=== PATIENT | female | born 1945 | race Caucasian/White ===

== ENCOUNTER 2023-03-23 12:13 | Emergency (ER) | payer MEDICARE, SELFPAY ==
[2023-03-23 12:27] VITALS: BP 120/76; PULSE 64; RESP 18; TEMP 37.3; O2SAT 98
[2023-03-23 14:09] LABS: Internal Control Within Normal Limits; Strep A Antigen Screen Negative
--- NOTE | 2023-03-23 14:16 | ED_ITS ---
HPI - URI/Sore Throat General Chief Complaint: Upper Respiratory Infection Stated Complaint: SORE THROAT Time Seen by Provider: 03/23/23 13:25 Source: patient Limitations: no limitations History of Present Illness HPI Narrative: patient presents to emergency department complaining of sore throat, myalgias, headache, chills and denies any fever. Patient states she has a cough which is nonproductive. She feels like she has bronchitis. She denies any chest pain, or shortness of breath. She denies any wheezing. Patient states she has a lot of nasal congestion and also her voice is becoming raspy from coughing so much yesterday. Patient has been sick for a week. They called the primary care doctor and were not able to get in until next week so they came in to be evaluated. There are no other sick contacts in the household. The patient just wants something to help her with the cough. She denies any chest pain. She denies any nausea, vomiting, diarrhea, cuts patient, or abdominal pain. She denies any flank pain, hematuria, dysuria. MD elicited complaint: Reports fever, cough, sore throat, rhinorrhea, nasal congestion and sinus pain Related Data Previous Rx's Medication Instructions Recorded benzonatate 200 mg capsule 200 mg PO TID PRN cough #20 caps 03/23/23 methylprednisolone 4 mg tablets in 4 mg PO DAILY #21 ea 03/23/23 a dose pack (Medrol (Dada)) Allergies Allergy/AdvReac Type Severity Reaction Status Date / Time pcn AdvReac Intermediate Uncoded 03/23/23 12:27 Review of Systems ROS Status of ROS 10 or more systems reviewed and unremarkable except as noted in history and below Exam Narrative Exam Narrative: Nurses notes and vital signs reviewed and patient is not hypoxic. General: Nontoxic,elderly, frail, chronically ill and in no apparent distress. Skin: Warm, dry, no pallor noted. No Rash Head: Normocephalic, atraumatic. Neck: Supple, non-tender. Eye: Pupils are equal, round and EOMI. No scleral icterus. Ears, Nose, Mouth, and Throat: TM clear, mild posterior oropharynx erythema, postnasal drip noted, no asymmetry,no nasal mucosal hypertrophy, uvula is mid- line Oral mucosa is moist Cardiovascular: Regular Rate and Rhythm without murmur, gallop or rub. Respiratory: No accessory muscle use or respiratory distress. Lungs are clear to auscultation, no wheezing, rales or rhonchi Chest Wall: no tenderness Back: No midline thoracic or lumbar vertebral tenderness. No CVA tenderness Musculoskeletal: normal ROM, no calf or popliteal tenderness, no lower extremity edema/swelling GI: Abdomen is soft, non-distended. Normal bowel sounds. No masses appreciated. No tenderness to palpation. No rebound, guarding, or rigidity noted. Neurological: A&O x4. No cranial nerve dysfunction observed. No truncal ataxia. Moves all extremities. Sensation intact. Psychiatric: Cooperative and interactive. Normal mood and affect. Constitutional Vital Signs, click to edit/add: Last Vital Signs Temp 99.2 F 03/23/23 12:27 Pulse 86 03/23/23 15:55 Resp 18 03/23/23 15:55 BP 138/87 03/23/23 15:55 Pulse Ox 96 03/23/23 15:55 O2 Del Method Room Air 03/23/23 15:55 Course Vital Signs Vital signs: Vital Signs Temperature 99.2 F 03/23/23 12:27 Pulse Rate 64 03/23/23 12:27 Respiratory Rate 18 03/23/23 12:27 Blood Pressure 120/76 03/23/23 12:27 Pulse Oximetry 98 03/23/23 12:27 Temperature 99.2 F 03/23/23 12:27 Pulse Rate 86 03/23/23 15:55 Respiratory Rate 18 03/23/23 15:55 Blood Pressure 138/87 03/23/23 15:55 Pulse Oximetry 96 03/23/23 15:55 Oxygen Delivery Method Room Air 03/23/23 15:55 MDM - URI/Sore Throat MDM Narrative Medical decision making narrative: rapid strep, cold and chest x-ray are unremarkable. All results discussed with patient. patient will be prescribed some Tessalon Perles, and a Medrol Dosepak. Patient is nontoxic, oxygen saturation 76 percent on room air. She stable for outpatient follow-up and treatment. At this time the patient is without objective evidence of an acute process requiring hospitalization or inpatient management. The patient has remained hemodynamically stable. No additional indication for emergent studies at this time. I answered all questions. Discussed discharge instructions including standard anticipatory guidance and what should prompt a return to the emergency department, including if they get worse are not getting better or develops any new or concerning symptoms. I've given them specific time frame in which to follow-up, and who to follow-up with. The patient demonstrates understanding. Patient is nontoxic and stable for discharge with outpatient follow-up. This note was created with the assistance of a speech recognition program. Although the intention is to generate documents that actually reflects the content of the visit, no guarantees can be provided that every mistake has been identified and corrected by editing. Differential Diagnosis Differential diagnosis: Likely upper respiratory infection Lab Data Labs: Lab Results 03/23/23 03/23/23 Range/Units 13:40 14:27 SARS-CoV-2 (PCR) Negative (NEGATIVE) Streptococcus Screen Negative Discharge Plan Discharge Chief Complaint: Upper Respiratory Infection Clinical Impression: Upper respiratory infection, Bronchitis Patient Disposition: Home, Self-Care Time of Disposition Decision: 15:39 Condition: Good Mode of Transportation: Private Vehicle Prescriptions / Home Meds: New methylprednisolone [Medrol (Dada)] 4 mg tablets,dose pack 4 mg PO DAILY Qty: 21 0RF benzonatate 200 mg capsule 200 mg PO TID PRN (Reason: cough) Qty: 20 0RF Instructions: Upper Respiratory Infection (ED), Acute Bronchitis (ED) Stand Alone Forms: Portal Instructions Referrals: Pio Gibbs MD [Primary Care Provider] - 1 week Discharge Date/Time: 03/23/23 16:00
--- NOTE | 2023-03-23 14:24 | XR_ITS ---
The [address] [address] Patient Name: JERRY FINNEY MRN: [id number] date: 1945 Sex: F Assigned Patient Location: ER Current Patient Location: ER Accession/Order Number: [id number] Exam Date: 03/23/2023 14:30 Report Date: 03/23/2023 14:47 At the request of: TYLER WALTERS Procedure: XR chest 1V EXAM: XR chest 1V at 1359 hours HISTORY: cough COMPARISON: 08/29/2021 TECHNIQUE: AP upright portable chest x-ray FINDINGS: The heart is not enlarged and the vasculature is not distended. No acute infiltrate, effusion or pneumothorax is identified. The osseous structures are grossly intact. XR/XR chest 1V IMPRESSION: No acute infiltrate or evidence of cardiac decompensation. The overall appearance of the chest has not changed significantly. Electronically authenticated by: MILA GAITAN Date: 03/23/2023 14:47
[2023-03-23 15:08] LABS: SARS-CoV-2 Ag NEGATIVE (NEGATIVE)
[2023-03-23 15:55] VITALS: BP 138/87; PULSE 86; RESP 18; O2SAT 96
[2023-03-25 14:15] LABS: SARS-CoV-2 NAA NOT DETECTED (NOT DETECTE)
== END 2023-03-23 16:00 | disposition home or self-care (01) ==
PROVIDERS: Physician Assistant; Emergency Provider Emergency Medicine; PCP Family Medicine
DX: J40 Bronchitis, not specified as acute or chronic (principal); J06.9 Acute upper respiratory infection, unspecified; Z20.822 Contact with and (suspected) exposure to COVID-19
CPT/HCPCS: 71045; 87070; 87635; 87811; 87880; 99284; U0003

== ENCOUNTER 2023-05-29 10:56 | Observation (INO) | payer MEDICARE, SELFPAY ==
[2023-05-29 11:05] VITALS: BP 156/91; PULSE 108; RESP 18; TEMP 37.2; O2SAT 95; BMI 24.8
--- NOTE | 2023-05-29 11:10 | CT_ITS ---
The [address] [address] Patient Name: JERRY FINNEY MRN: [facility]:[id number] date: 1945 Sex: F Assigned Patient Location: ER Current Patient Location: [facility] Accession/Order Number: [id number] Exam Date: 05/29/2023 11:15 Report Date: 05/29/2023 11:47 At the request of: AMBIKA PANDA Procedure: CT lumbar spine wo con EXAM: CT lumbar spine wo con HISTORY: Lumbar spine pain following fall last night COMPARISON: Lumbar spine radiographs 10/12/2022. TECHNIQUE: Axial noncontrast CT imaging of the lumbar spine was performed with coronal and sagittal reformats. This CT exam was performed using one or more of the following dose reduction techniques: Automated exposure control, adjustment of the MA and/or kV according to patient size, or use of iterative reconstruction technique. FINDINGS: Alignment: Similar stepwise retrolisthesis of L2 on L3 and L3 on L4 with 7 mm retrolisthesis at both levels. Vertebrae: Chronic anterior compression deformity is of L2 on L3 slightly greater at L3 with approximately 50% height loss and mild diffuse generalized height loss. This is not substantially changed from 10/12/2022. Diffuse osteopenia. Degenerative changes: Moderate degenerative change of the lower thoracic and lumbar spine with bridging anterior osteophytosis involving the lower thoracic spine and upper lumbar spine as well as bridging fusion of the spinous processes extending from the lower thoracic spine through the level of L2. There is vacuum disc noted at L2-L3 and multilevel disc bulges with marginal osteophytic spurring. Probable mild to moderate foraminal stenosis is noted. There is mild canal stenosis at L1-L2 and L2-L3. Moderate to advanced bilateral foraminal stenosis at L2-L3. Multilevel mild foraminal stenosis at the remaining levels. Upper Sacrum: No focal lesion identified. Additional comments: Surgical changes involving the colon. Atherosclerotic changes are noted. Mild diverticulosis. CT/CT lumbar spine wo con IMPRESSION: 1. No acute fracture or malalignment of the lumbar spine given diffuse osteopenia. 2. Grossly stable appearance of chronic compression deformities of L2 on L3. 3. Moderate degenerative change of lumbar spine. Electronically authenticated by: ANN ZEPEDA Date: 05/29/2023 11:47
--- NOTE | 2023-05-29 11:12 | ECG_ITS ---
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
[2023-05-29 11:38] LABS: Basophils Percent Auto 0.3 % (0.2-2.0); Eosinophils Absolute Auto 0.1 10^3/uL (0.0-0.7); Eosinophils Percent Auto 0.6 % (0.9-7.0); Hematocrit 38.4 % (36.0-48.0); Hemoglobin 12.6 g/dL (12.0-16.0); Immature Granulocytes Abs Auto 0.05 10^3/uL (0.00-0.03); Immature Granulocytes Pct Auto 0.6 % (0.0-0.5); Lymphocytes Absolute Auto 1.2 10^3/uL (1.2-3.8); Mean Corpuscular HGB Conc 32.8 g/dL (29.9-35.2); Mean Corpuscular Hemoglobin 29.7 pg (26.7-34.0); Mean Corpuscular Volume 90.6 fL (81.0-99.0); Mean Platelet Volume 8.5 fL (9.5-13.5); Monocytes Absolute Auto 0.7 10^3/uL (0.3-0.8); Monocytes Percent Auto 7.9 % (1.7-12.0); Neutrophils Absolute Auto 6.9 10^3/uL (1.4-6.5); Neutrophils Percent Auto 77.6 % (43.0-75.0); Platelet Count 244 10^3/uL (150-450); Red Blood Count 4.24 10^6/uL (4.20-5.40); Red Cell Distribution Width 12.7 % (11.0-15.0); White Blood Count 8.9 10^3/uL (4.0-11.0)
[2023-05-29 11:47] LABS: Anion Gap 10.1; BUN Creatinine Ratio 18.2; Calcium 8.7 mg/dL (8.5-10.1); Carbon Dioxide 28.2 mmol/L (21.0-32.0); Chloride 103 mmol/L (98-107); Estimated GFR (African America >60 (>=60); Estimated GFR (Non-African Ame 54 (>=60); Glucose 102 mg/dL (74-106); Potassium 4.3 mmol/L (3.5-5.1); Sodium 137 mmol/L (136-145)
--- NOTE | 2023-05-29 11:47 | ED_ITS ---
HPI - Back Pain/Injury General Chief Complaint: Back Pain/Injury Stated Complaint: BACK PAIN/FALL Time Seen by Provider: 05/29/23 11:00 Source: patient and family Mode of arrival: Wheelchair Limitations: physical limitation History of Present Illness HPI Narrative: 77-year-old female presents for lower back pain. She fell last night about midnight. Her daughter accompanies her and gives most of the history but she didn't witness what happened. The daughter believes that the patient was in her wheelchair and was trying to get ready for bed and the wheelchair wasn't locked and it went backwards and she slipped and fell down. She doesn't headache or neck pain and didn't hit her head. She points to the midline lower back to indicate area of pain. She cannot quantify or describe the pain. The patient herself is a poor historian. Related Data Home Medications Medication Instructions Recorded Confirmed cetirizine 10 mg tablet 10 mg PO DAILY 05/29/23 05/29/23 hyoscyamine sulfate 0.125 mg 0.125 mg PO Q6H 05/29/23 05/29/23 sublingual tablet levothyroxine 112 mcg tablet 112 mcg PO .before breakfast 05/29/23 05/29/23 lisinopril 10 mg tablet 10 mg PO DAILY 05/29/23 05/29/23 omeprazole 40 mg capsule,delayed 40 mg PO DAILY 05/29/23 05/29/23 release simvastatin 40 mg tablet 40 mg PO DAILY 05/29/23 05/29/23 tramadol 50 mg tablet 50 mg PO Q8H 05/29/23 05/29/23 Previous Rx's Medication Instructions Recorded benzonatate 200 mg capsule 200 mg PO TID PRN cough #20 caps 03/23/23 methylprednisolone 4 mg tablets in 4 mg PO DAILY #21 ea 03/23/23 a dose pack (Medrol (Dada)) Allergies Allergy/AdvReac Type Severity Reaction Status Date / Time Iodinated Contrast Media Allergy Unknown Verified 05/29/23 11:34 diclofenac Allergy Verified 05/29/23 11:34 [From Arthrotec 50] misoprostol Allergy Verified 05/29/23 11:34 [From Arthrotec 50] levofloxacin AdvReac Intermediate Hives Verified 05/29/23 11:34 Penicillins AdvReac Intermediate Verified 05/29/23 11:34 Review of Systems ROS Narrative A ten point review of systems is negative except as noted above. [facility] Medical History (Updated 05/29/23 @ 12:11 by Atilio Arreola MD) Anxiety ?F41.9 - Anxiety disorder, unspecified (ICD-10) Arthritis ?M19.90 - Unspecified osteoarthritis, unspecified site (ICD-10) B12 deficiency ?E53.8 - Deficiency of other specified B group vitamins (ICD-10) Cervical radiculopathy ?M54.12 - Radiculopathy, cervical region (ICD-10) Compression fracture of L5 vertebra ?S32.050A - Wedge compression fracture of fifth lumbar vertebra, initial encounter for closed fracture (ICD-10) Diverticula of colon ?K57.30 - Diverticulosis of large intestine without perforation or abscess without bleeding (ICD-10) Graves disease ?E05.00 - Thyrotoxicosis with diffuse goiter without thyrotoxic crisis or storm (ICD-10) Hypertension ?I10 - Essential (primary) hypertension (ICD-10) Osteopenia ?M85.80 - Other specified disorders of bone density and structure, unspecified site (ICD-10) Small bowel obstruction ?K56.609 - Unspecified intestinal obstruction, unspecified as to partial versus complete obstruction (ICD-10) Type 2 diabetes mellitus ?E11.9 - Type 2 diabetes mellitus without complications (ICD-10) Ventral hernia ?K43.9 - Ventral hernia without obstruction or gangrene (ICD-10) Surgical History (Updated 05/29/23 @ 11:44 by Mae Escoto RN) History of cholecystectomy ?Z90.49 - Acquired absence of other specified parts of digestive tract (ICD- 10) History of colon resection ?Z90.49 - Acquired absence of other specified parts of digestive tract (ICD- 10) Social History Smoking status: Former smoker Exam Narrative Exam Narrative: Nurses note and vital signs reviewed and patient is not hypoxic. General: The patient appears uncomfortable and in no apparent distress. Skin: Warm, dry, no pallor noted. There is no rash noted. Head: Normocephalic, atraumatic Eye: Normal conjunctiva, no drainage Ears, Nose, Mouth, and Throat: oral mucosa is moist. Nares patent. Cardiovascular: Regular Rate and Rhythm Respiratory: Patient is in no distress, no accessory muscle use, lungs are clear to auscultation, no wheezing, rales or rhonchi Back: cervical spine and thoracic spine nontender. She has diffuse tenderness across her lower back without bruise or abrasion or deformity. GI: nontender Musculoskeletal: no tenderness to either hip knees and ankles Neurological: A&O, normal speech Psychiatric: Cooperative Constitutional Vital Signs, click to edit/add: Last Vital Signs Temp 99 F 05/29/23 11:05 Pulse 108 H 05/29/23 11:05 Resp 18 05/29/23 11:05 BP 156/91 H 05/29/23 11:05 Pulse Ox 95 05/29/23 11:05 O2 Del Method Room Air 05/29/23 11:05 Course Vital Signs Vital signs: Vital Signs Temperature 99 F 05/29/23 11:05 Pulse Rate 108 H 05/29/23 11:05 Respiratory Rate 18 05/29/23 11:05 Blood Pressure 156/91 H 05/29/23 11:05 Pulse Oximetry 95 05/29/23 11:05 Oxygen Delivery Method Room Air 05/29/23 11:05 Temperature 99 F 05/29/23 11:05 Pulse Rate 108 H 05/29/23 11:05 Respiratory Rate 18 05/29/23 11:05 Blood Pressure 156/91 H 05/29/23 11:05 Pulse Oximetry 95 05/29/23 11:05 Oxygen Delivery Method Room Air 05/29/23 11:05 MDM - Back Pain/Injury MDM Narrative Medical decision making narrative: CT lumbar spine shows old compression fractures, no acute findings. She's quite uncomfortable and is unable to be discharged home. She'll be admitted for observation. Findings are discussed with the patient and her doctor. Differential Diagnosis Differential diagnosis: Likely other (fall, compression fracture, lumbar frac ture, back contusion) Lab Data Attestation: I reviewed the patient's lab results. Labs: Lab Results 05/29/23 Range/Units 11:30 WBC 8.9 (4.0-11.0) 10^3/uL RBC 4.24 (4.20-5.40) 10^6/uL Hgb 12.6 (12.0-16.0) g/dL Hct 38.4 (36.0-48.0) % MCV 90.6 (81.0-99.0) fL MCH 29.7 (26.7-34.0) pg MCHC 32.8 (29.9-35.2) g/dL RDW 12.7 (11.0-15.0) % Plt Count 244 (150-450) 10^3/uL MPV 8.5 L (9.5-13.5) fL Neut % (Auto) 77.6 H (43.0-75.0) % Lymph % (Auto) 13.0 L (20.5-60.0) % [place] % (Auto) 7.9 (1.7-12.0) % Eos % (Auto) 0.6 L (0.9-7.0) % Baso % (Auto) 0.3 (0.2-2.0) % Neut # (Auto) 6.9 H (1.4-6.5) 10^3/uL Lymph # (Auto) 1.2 (1.2-3.8) 10^3/uL [place] # (Auto) 0.7 (0.3-0.8) 10^3/uL Eos # (Auto) 0.1 (0.0-0.7) 10^3/uL Baso # (Auto) 0.0 (0.0-0.1) 10^3/uL Abs Immat Gran (auto) 0.05 H (0.00-0.03) 10^3/uL Imm/Tot Granulo (auto) 0.6 H (0.0-0.5) % Sodium 137 (136-145) mmol/L Potassium 4.3 (3.5-5.1) mmol/L Chloride 103 (98-107) mmol/L Carbon Dioxide 28.2 (21.0-32.0) mmol/L Anion Gap 10.1 BUN 18.0 (7.0-18.0) mg/dL Creatinine 0.99 (0.55-1.02) mg/dL Est GFR ( Amer) >60 (>=60) Est GFR (Non-Af Amer) 54 L (>=60) BUN/Creatinine Ratio 18.2 Glucose 102 (74-106) mg/dL Calcium 8.7 (8.5-10.1) mg/dL Imaging Data CT lumbar spine: Radiologist's impression: Procedure: CT lumbar spine wo con EXAM: CT lumbar spine wo con HISTORY: Lumbar spine pain following fall last night COMPARISON: Lumbar spine radiographs 10/12/2022. TECHNIQUE: Axial noncontrast CT imaging of the lumbar spine was performed with coronal and sagittal reformats. This CT exam was performed using one or more of the following dose reduction techniques: Automated exposure control, adjustment of the MA and/or kV according to patient size, or use of iterative reconstruction technique. FINDINGS: Alignment: Similar stepwise retrolisthesis of L2 on L3 and L3 on L4 with 7 mm retrolisthesis at both levels. Vertebrae: Chronic anterior compression deformity is of L2 on L3 slightly greater at L3 with approximately 50% height loss and mild diffuse generalized height loss. This is not substantially changed from 10/12/2022. Diffuse osteopenia. Degenerative changes: Moderate degenerative change of the lower thoracic and lumbar spine with bridging anterior osteophytosis involving the lower thoracic spine and upper lumbar spine as well as bridging fusion of the spinous processes extending from the lower thoracic spine through the level of L2. There is vacuum disc noted at L2-L3 and multilevel disc bulges with marginal osteophytic spurring. Probable mild to moderate foraminal stenosis is noted. There is mild canal stenosis at L1-L2 and L2-L3. Moderate to advanced bilateral foraminal stenosis at L2-L3. Multilevel mild foraminal stenosis at the remaining levels. Upper Sacrum: No focal lesion identified. Additional comments: Surgical changes involving the colon. Atherosclerotic changes are noted. Mild diverticulosis. IMPRESSION: 1. No acute fracture or malalignment of the lumbar spine given diffuse osteopenia. 2. Grossly stable appearance of chronic compression deformities of L2 on L3. 3. Moderate degenerative change of lumbar spine. Electronically authenticated by: ANN ZEPEDA Date: 05/29/2023 11:47 ECG Data Attestation: I personally reviewed and interpreted this ECG as follows: (EKG on my interpretation shows no acute findings) Discharge Plan Discharge Chief Complaint: Back Pain/Injury Clinical Impression: Low back pain, Fall Patient Disposition: Admitted as Observation Time of Disposition Decision: 12:11 Condition: Good
[2023-05-29 13:05] VITALS: RESP 20
[2023-05-29 13:37] VITALS: BP 148/75; PULSE 74; RESP 16; TEMP 37.2; O2SAT 93; BMI 35.9
--- NOTE | 2023-05-30 15:50 | CM.DCFOLLOWU ---
Person spoke with: Priyanka How are you feeling? Better How is your pain? No pain have Tramadol that is working Did you understand your discharge instructions? Yes Do you have any questions about your discharge instructions? Yes Were you given any prescriptions at discharge? No Were you able to get your prescriptions filled? N/A Do you understand how to take your medications as ordered? Yes Do you have any questions about your follow up appointment and do you plan to keep your follow up appointment? No- appointment on Sunday Is there anything else that you would like to discuss? No Questions/Comments/Concerns/Other:
--- NOTE | 2023-06-02 12:34 | PM.PN ---
Progress Note: Subjective Subjective Interval history: Patient admitted with back pain, unable to walk in ER, when she was up on the floor she felt much improved and wanted to be discharged home prior to me seeing her. With follow-up closely in the office she was discharged home in stable condition. Medications see list. Follow-up with me within the next week. Exam Constitutional Vital Signs, click to edit/add: Last Vital Signs Temp 99.0 F 05/29/23 13:37 Pulse 74 05/29/23 13:37 Resp 16 05/29/23 13:37 BP 148/75 H 05/29/23 13:37 Pulse Ox 93 L 05/29/23 13:37 O2 Del Method Room Air 05/29/23 13:37
== END 2023-05-29 14:36 | disposition home or self-care (01) ==
LOC: ER 12:11 → MS 12:18
PROVIDERS: Admitting Provider Family Medicine; Emergency Provider Emergency Medicine; PCP Family Medicine; Visit Provider Family Medicine
DX: M54.50 Low back pain, unspecified (principal); Z79.899 Other long term (current) drug therapy; Z79.890 Hormone replacement therapy; F41.9 Anxiety disorder, unspecified; M19.90 Unspecified osteoarthritis, unspecified site; E53.8 Deficiency of other specified B group vitamins; E05.00 Thyrotoxicosis with diffuse goiter without thyrotoxic crisis or storm; I10 Essential (primary) hypertension; M85.80 Other specified disorders of bone density and structure, unspecified site; E11.9 Type 2 diabetes mellitus without complications; Z90.49 Acquired absence of other specified parts of digestive tract; Z87.891 Personal history of nicotine dependence; W19.XXXA Unspecified fall, initial encounter
CPT/HCPCS: 36415; 72131; 80048; 85025; 93005; 94761; 97161; 99285; G0378

== ENCOUNTER 2023-06-06 17:35 | Inpatient (IN) | payer MEDICARE, SELFPAY ==
[2023-06-06] VITALS (23 sets, daily range): BP systolic 98–102; BP diastolic 65–75; PULSE 73–152; RESP 17–24; TEMP 36.8; O2SAT 96–98; BMI 27.3
--- NOTE | 2023-06-06 18:49 | ECG_ITS ---
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
--- NOTE | 2023-06-06 18:58 | ED_ITS ---
Documented by User: Jennifer Kearns 06/06/23 21:56 HPI - General Adult General Chief complaint: Nausea/Vomiting/Diarrhea Stated complaint: Diarrhea, Weakness Time Seen by Provider: 06/06/23 18:40 Source: patient Mode of arrival: Wheelchair Limitations: no limitations History of Present Illness HPI narrative: 77 year old female presents to the ED for diarrhea, nausea, abd discomfort, fat igue, generalized weakness. Onset of the diarrhea was 2 days ago. She was evaluated here last week for back pain s/p fall. She was sent home. Her daughter states she has not gotten out of bed and will not walk because she is afraid she is going to fall. Denies fever, chills, CP, SOB. Denies emesis, urinary sx. Rates her pain 7/10 to her back. She has mild upper abd discomfort. Related Data Home Medications Medication Instructions Recorded Confirmed cetirizine 10 mg tablet 10 mg PO DAILY 05/29/23 06/06/23 hyoscyamine sulfate 0.125 mg 0.125 mg PO Q6H PRN abdominal 05/29/23 06/06/23 sublingual tablet discomfort levothyroxine 112 mcg tablet 112 mcg PO .before breakfast 05/29/23 06/06/23 lisinopril 10 mg tablet 10 mg PO DAILY 05/29/23 06/06/23 simvastatin 40 mg tablet 40 mg PO DAILY 05/29/23 06/06/23 tramadol 50 mg tablet 50 mg PO Q8H 05/29/23 06/06/23 Allergies Allergy/AdvReac Type Severity Reaction Status Date / Time Iodinated Contrast Media Allergy Unknown Verified 05/29/23 11:34 diclofenac Allergy Verified 05/29/23 11:34 [From Arthrotec 50] misoprostol Allergy Verified 05/29/23 11:34 [From Arthrotec 50] levofloxacin AdvReac Intermediate Hives Verified 05/29/23 11:34 Penicillins AdvReac Intermediate Verified 05/29/23 11:34 Review of Systems ROS Constitutional Denies: fever or chills Ears, nose, mouth, and throat Reports: throat pain; Denies: neck pain Cardiovascular Denies: chest pain Respiratory Denies: shortness of breath or cough Gastrointestinal Reports: abdominal pain, nausea and diarrhea; Denies: vomiting Genitourinary Denies: painful urination, urinary frequency or urinary urgency Musculoskeletal Reports: back pain; Denies: neck pain Integumentary/Breast Denies: rash Neurological Denies: headache, numbness in extremities or weakness in extremities PFSH [facility] Medical History (Updated 06/07/23 @ 00:15 by Salina Navas MD) Anxiety ?F41.9 - Anxiety disorder, unspecified (ICD-10) Arthritis ?M19.90 - Unspecified osteoarthritis, unspecified site (ICD-10) B12 deficiency ?E53.8 - Deficiency of other specified B group vitamins (ICD-10) Cervical radiculopathy ?M54.12 - Radiculopathy, cervical region (ICD-10) Compression fracture of L5 vertebra ?S32.050A - Wedge compression fracture of fifth lumbar vertebra, initial encounter for closed fracture (ICD-10) Diverticula of colon ?K57.30 - Diverticulosis of large intestine without perforation or abscess without bleeding (ICD-10) Fall ?W19.XXXA - Unspecified fall, initial encounter (ICD-10) Graves disease ?E05.00 - Thyrotoxicosis with diffuse goiter without thyrotoxic crisis or storm (ICD-10) Hypertension ?I10 - Essential (primary) hypertension (ICD-10) Low back pain ?M54.50 - Low back pain, unspecified (ICD-10) Osteopenia ?M85.80 - Other specified disorders of bone density and structure, unspecified site (ICD-10) Small bowel obstruction ?K56.609 - Unspecified intestinal obstruction, unspecified as to partial versus complete obstruction (ICD-10) Type 2 diabetes mellitus ?E11.9 - Type 2 diabetes mellitus without complications (ICD-10) Ventral hernia ?K43.9 - Ventral hernia without obstruction or gangrene (ICD-10) Surgical History (Updated 05/29/23 @ 11:44 by Mae Escoto RN) History of cholecystectomy ?Z90.49 - Acquired absence of other specified parts of digestive tract (ICD- 10) History of colon resection ?Z90.49 - Acquired absence of other specified parts of digestive tract (ICD- 10) Social History Smoking status: Never smoker Gender Identity: female Exam Constitutional Vital Signs, click to edit/add: Last Vital Signs Temp 98.3 F 06/06/23 17:45 Pulse 152 H 06/06/23 21:52 Resp 23 06/06/23 21:50 BP 98/75 06/06/23 23:15 Pulse Ox 96 06/06/23 19:00 O2 Del Method Room Air 06/06/23 17:45 Common normals: no apparent distress and oriented x3 General appearance: cooperative HENMT Mouth: oral and palatal mucosa normal, lip normal and tongue normal Throat: posterior oropharynx normal Eye Common normals: conjunctivae normal and no scleral icterus Neck & C-Spine Common normals: supple Chest Chest: symmetrical chest wall rise Respiratory Common normals: normal respiratory effort Effort & inspection: able to speak in complete sentences and symmetric chest movement Auscultation: clear to auscultation bilaterally Cardio Common normals: regular rate and regular rhythm GI Common normals: Normal to inspection, nondistended, normoactive bowel sounds present and soft to palpation Palpation: tender Details: epigastric Course Vital Signs Vital signs: Vital Signs Temperature 98.3 F 06/06/23 17:45 Pulse Rate 108 H 06/06/23 17:45 Respiratory Rate 20 06/06/23 17:45 Blood Pressure 98/65 06/06/23 17:45 Pulse Oximetry 98 06/06/23 17:45 Oxygen Delivery Method Room Air 06/06/23 17:45 Temperature 98.3 F 06/06/23 17:45 Pulse Rate 152 H 06/06/23 21:52 Respiratory Rate 23 06/06/23 21:50 Blood Pressure 98/75 06/06/23 23:15 Pulse Oximetry 96 06/06/23 19:00 Oxygen Delivery Method Room Air 06/06/23 17:45 Medical Decision Making MDM Narrative Medical decision making narrative: WBC count was 17.7 today; it was 8.9 on 05/29/23. BUN was 28 and creatinine 1.59. This was increased from the previous visit. On 05/29/23 her BUN was 18 and creatinine 0.99. She was started on IV fluids. Urinalysis was pending. Care was resumed to Dr. Navas. See her dictation for further evaluation and treatment. Medical Records Medical records reviewed: Yes I reviewed the patient's medical records Lab Data Lab results reviewed: Yes I reviewed the patient's lab results Labs: Lab Results 06/06/23 06/06/23 06/06/23 Range/Units 18:55 20:00 20:03 WBC 17.7 H (4.0-11.0) 10^3/uL RBC 4.93 (4.20-5.40) 10^6/uL Hgb 14.4 (12.0-16.0) g/dL Hct 43.6 (36.0-48.0) % MCV 88.4 (81.0-99.0) fL MCH 29.2 (26.7-34.0) pg MCHC 33.0 (29.9-35.2) g/dL RDW 13.0 (11.0-15.0) % Plt Count 390 (150-450) 10^3/uL MPV 8.7 L (9.5-13.5) fL Neut % (Auto) 84.1 H (43.0-75.0) % Lymph % (Auto) 7.3 L (20.5-60.0) % Buchanan % (Auto) 7.5 (1.7-12.0) % Eos % (Auto) 0.1 L (0.9-7.0) % Baso % (Auto) 0.3 (0.2-2.0) % Neut # (Auto) 14.9 H (1.4-6.5) 10^3/uL Lymph # (Auto) 1.3 (1.2-3.8) 10^3/uL Buchanan # (Auto) 1.3 H (0.3-0.8) 10^3/uL Eos # (Auto) 0.0 (0.0-0.7) 10^3/uL Baso # (Auto) 0.1 (0.0-0.1) 10^3/uL Abs Immat Gran (auto) 0.12 H (0.00-0.03) 10^3/uL Imm/Tot Granulo (auto) 0.7 H (0.0-0.5) % Sodium 138 (136-145) mmol/L Potassium 4.0 (3.5-5.1) mmol/L Chloride 98 (98-107) mmol/L Carbon Dioxide 28.0 (21.0-32.0) mmol/L Anion Gap 16.0 BUN 28.0 H (7.0-18.0) mg/dL Creatinine 1.59 H (0.55-1.02) mg/dL Est GFR ( Amer) 38 L (>=60) Est GFR (Non-Af Amer) 31 L (>=60) BUN/Creatinine Ratio 17.6 Glucose 145 H (74-106) mg/dL Lactate 2.0 (0.4-2.0) mmol/L Calcium 9.4 (8.5-10.1) mg/dL Total Bilirubin 0.6 (0.2-1.0) mg/dL AST 21 (15-37) U/L ALT 19 (14-59) U/L Alkaline Phosphatase 94 (46-116) U/L Total Protein 7.4 (6.4-8.2) g/dL Albumin 3.5 (3.4-5.0) g/dL Globulin 3.9 g/dL Albumin/Globulin Ratio 0.9 Lipase 54.0 (16.0-77.0) U/L Urine Color Franklin A (YELLOW) Urine Clarity Clear (CLEAR) Urine pH 5.5 (5.0-9.0) Ur Specific Woodworth >=1.030 A (1.005-1.025) Urine Protein 30 A (NEG/TRACE) mg/dL Urine Glucose (UA) Negative (NEGATIVE) mg/dL Urine Ketones 40 A (NEGATIVE) mg/dL Urine Occult Blood Large A (NEGATIVE) Urine Nitrite Negative (NEGATIVE) Urine Bilirubin Moderate A (NEGATIVE) Urine Urobilinogen 1.0 (0.2-1.0) EU/dL Ur Leukocyte Esterase Moderate A (NEGATIVE) Urine RBC 5-10 A (0-2) #/HPF Urine WBC 20-50 A (NONE SEEN) #/HPF Ur Squamous Epith Cells Moderate A (NONE/RARE) #/LPF Urine Crystals None seen (None Seen) #/HPF Urine Bacteria Large A (NONE SEEN) #/HPF Urine Casts Seen A (NONE SEEN) #/LPF Hyaline Casts Few Urine Mucus None seen (NONE SEEN) Ur Culture Indicated? Yes Influenza Type A Ag Negative Influenza Type B Ag Negative Imaging Data CT scan - abdomen: Attestation: I have reviewed the pertinent imaging results. Radiologist's impression: Procedure: CT abdomen pelvis wo con Indication: Abdominal pain Comparison: 05/07/2022 exam Procedure: Axial images were made from the diaphragms through the symphysis pubis. No oral contrast or intravenous contrast was given. Dose reduction techniques were achieved by using automated exposure control and/or adjustment of mA and/or kV according to patient size and/or use of iterative reconstruction technique. Findings: Liver/Biliary System: No liver masses are seen. No intra or extrahepatic biliary dilatation. Status post cholecystectomy. Pancreas/Spleen: No pancreatic ductal dilatation. No evidence of acute pancreatitis. No splenomegaly. Kidneys/Adrenals: No renal or ureteral stones are seen. No hydronephrosis or hydroureter bilaterally. Stable small renal hypodensities, probably cysts. No adrenal nodules. Aorta/Vessels: No evidence of aortic aneurysm. Evaluation of vessels is limited due to lack of IV contrast. Bowel/Fluid/Nodes: Stable moderate hiatus hernia. No bowel dilatation or bowel wall thickening. No evidence of bowel obstruction. Colonic diverticulosis with no evidence of diverticulitis. Appendix was not identified, however no secondary signs of appendicitis present. Right anterior pelvic wall hernia containing small bowel loop. No ascites or fluid collections. No adenopathy. Lung bases: Clear. Other findings: No aggressive osseous lesions are seen. Stable postoperative changes in midline anterior abdominal wall. Pelvis: No pelvic masses or adenopathy. No free fluid seen in the pelvis. Status post hysterectomy. Bladder grossly unremarkable. Other Findings: No aggressive osseous lesions are seen. Interval increase in collapse of L3 vertebra. CT/CT abdomen pelvis wo con Impression: 1. No evidence of acute abdominal or pelvic process. 2. Colonic diverticulosis with no evidence of diverticulitis. 3. Stable moderate hiatus hernia. 4. Right anterior pelvic wall hernia containing small bowel loop. No small bowel dilatation or wall thickening. No evidence of small bowel obstruction. 5. Stable small renal hypodensities, probably cysts. Status post cholecystectomy and hysterectomy. 6. Interval increase in collapse of L3 vertebra. Stable postoperative changes in midline anterior abdominal wall. Electronically authenticated by: FAMILIA CASTRO Date: 06/06/2023 21:15 Discharge Plan Discharge Chief Complaint: Nausea/Vomiting/Diarrhea Clinical Impression: Leukocytosis, Nausea vomiting and diarrhea, Acute UTI, Acute kidney injury, Compression fx, lumbar spine Prescriptions / Home Meds: No Action simvastatin 40 mg tablet 40 mg PO DAILY levothyroxine 112 mcg tablet 112 mcg PO .before breakfast lisinopril 10 mg tablet 10 mg PO DAILY tramadol 50 mg tablet 50 mg PO Q8H hyoscyamine sulfate 0.125 mg tablet, sublingual 0.125 mg PO Q6H PRN (Reason: abdominal discomfort) cetirizine 10 mg tablet 10 mg PO DAILY Referrals: Pio Gibbs MD [Primary Care Provider] - 1 week Documented by User: Salina Navas MD 06/07/23 00:17 HPI - General Adult General Chief complaint: Nausea/Vomiting/Diarrhea Stated complaint: Diarrhea, Weakness Time Seen by Provider: 06/06/23 18:40 Related Data Home Medications Medication Instructions Recorded Confirmed cetirizine 10 mg tablet 10 mg PO DAILY 05/29/23 06/06/23 hyoscyamine sulfate 0.125 mg 0.125 mg PO Q6H PRN abdominal 05/29/23 06/06/23 sublingual tablet discomfort levothyroxine 112 mcg tablet 112 mcg PO .before breakfast 05/29/23 06/06/23 lisinopril 10 mg tablet 10 mg PO DAILY 05/29/23 06/06/23 simvastatin 40 mg tablet 40 mg PO DAILY 05/29/23 06/06/23 tramadol 50 mg tablet 50 mg PO Q8H 05/29/23 06/06/23 Allergies Allergy/AdvReac Type Severity Reaction Status Date / Time Iodinated Contrast Media Allergy Unknown Verified 05/29/23 11:34 diclofenac Allergy Verified 05/29/23 11:34 [From Arthrotec 50] misoprostol Allergy Verified 05/29/23 11:34 [From Arthrotec 50] levofloxacin AdvReac Intermediate Hives Verified 05/29/23 11:34 Penicillins AdvReac Intermediate Verified 05/29/23 11:34 PFSH PFSH Medical History (Updated 06/07/23 @ 00:15 by Salina Navas MD) Anxiety ?F41.9 - Anxiety disorder, unspecified (ICD-10) Arthritis ?M19.90 - Unspecified osteoarthritis, unspecified site (ICD-10) B12 deficiency ?E53.8 - Deficiency of other specified B group vitamins (ICD-10) Cervical radiculopathy ?M54.12 - Radiculopathy, cervical region (ICD-10) Compression fracture of L5 vertebra ?S32.050A - Wedge compression fracture of fifth lumbar vertebra, initial encounter for closed fracture (ICD-10) Diverticula of colon ?K57.30 - Diverticulosis of large intestine without perforation or abscess without bleeding (ICD-10) Fall ?W19.XXXA - Unspecified fall, initial encounter (ICD-10) Graves disease ?E05.00 - Thyrotoxicosis with diffuse goiter without thyrotoxic crisis or storm (ICD-10) Hypertension ?I10 - Essential (primary) hypertension (ICD-10) Low back pain ?M54.50 - Low back pain, unspecified (ICD-10) Osteopenia ?M85.80 - Other specified disorders of bone density and structure, unspecified site (ICD-10) Small bowel obstruction ?K56.609 - Unspecified intestinal obstruction, unspecified as to partial versus complete obstruction (ICD-10) Type 2 diabetes mellitus ?E11.9 - Type 2 diabetes mellitus without complications (ICD-10) Ventral hernia ?K43.9 - Ventral hernia without obstruction or gangrene (ICD-10) Surgical History (Updated 05/29/23 @ 11:44 by Mae Escoto RN) History of cholecystectomy ?Z90.49 - Acquired absence of other specified parts of digestive tract (ICD- 10) History of colon resection ?Z90.49 - Acquired absence of other specified parts of digestive tract (ICD- 10) Social History Smoking status: Never smoker Gender Identity: female Exam Constitutional Vital Signs, click to edit/add: Last Vital Signs Temp 98.3 F 06/06/23 17:45 Pulse 152 H 06/06/23 21:52 Resp 23 06/06/23 21:50 BP 98/75 06/06/23 23:15 Pulse Ox 96 06/06/23 19:00 O2 Del Method Room Air 06/06/23 17:45 Course Vital Signs Vital signs: Vital Signs Temperature 98.3 F 06/06/23 17:45 Pulse Rate 108 H 06/06/23 17:45 Respiratory Rate 20 06/06/23 17:45 Blood Pressure 98/65 06/06/23 17:45 Pulse Oximetry 98 06/06/23 17:45 Oxygen Delivery Method Room Air 06/06/23 17:45 Temperature 98.3 F 06/06/23 17:45 Pulse Rate 152 H 06/06/23 21:52 Respiratory Rate 23 06/06/23 21:50 Blood Pressure 98/75 06/06/23 23:15 Pulse Oximetry 96 06/06/23 19:00 Oxygen Delivery Method Room Air 06/06/23 17:45 Medical Decision Making MDM Narrative Medical decision making narrative: WBC count was 17.7 today; it was 8.9 on 05/29/23. BUN was 28 and creatinine 1.59. This was increased from the previous visit. On 05/29/23 her BUN was 18 and creatinine 0.99. She was started on IV fluids. Urinalysis was pending. Care was resumed to Dr. Navas. See her dictation for further evaluation and treatment. 77-year-old female was seen and evaluated in conjunction with the nurse practitioner. Please refer to her full H and P. This 77-year-old female to this hospital after having a fall and having subsequent generalized weakness and refusing to get out of bed. She was brought to the emergency department again today due to increasing generalized weakness, low back pain and nausea and vomiting. She has not had a fever. Her daughter has been having to transfer her from the bed to the bathroom because the patient refuses to help her because she is afraid she is going to fall. The daughter did call today and set up outpatient physical therapy. There has also been discussion about her being admitted to short-term rehab. The patient was seen and evaluated. She is alert, stable. She has required assistance to get to the bedside commode. She was noted to have an elevated white cell count is 17.7. Her blood pressure has been moderately low. She was given IV fluids in the emergency department with Zofran and Pepcid and has not had any additional nausea vomiting or diarrhea. She was able to provide a urine which is positive for bacteria and 20-50 white blood cells per high-power field. It is unclear if this is a contaminated specimen however she was given IV Rocephin and additional IV fluids. CT scan of abdomen and pelvis does not show any acute abdominal findings but does show interval increase in an L3 compression fracture. This was discussed with the patient and her daughter. The case was discussed with the hospitalist who requests 2 sets of blood cultures, lactic acid and additional IV fluids. She is accepted for admission to [facility] [place] with telemetry monitoring. Lactic acid is normal at 2.0. Blood cultures x 2, urine culture and stool for c diff is pending at this time. She has not had a fever, tachycardia or episodes of hypotension Lab Data Labs: Lab Results 06/06/23 06/06/23 06/06/23 Range/Units 18:55 20:00 20:03 WBC 17.7 H (4.0-11.0) 10^3/uL RBC 4.93 (4.20-5.40) 10^6/uL Hgb 14.4 (12.0-16.0) g/dL Hct 43.6 (36.0-48.0) % MCV 88.4 (81.0-99.0) fL MCH 29.2 (26.7-34.0) pg MCHC 33.0 (29.9-35.2) g/dL RDW 13.0 (11.0-15.0) % Plt Count 390 (150-450) 10^3/uL MPV 8.7 L (9.5-13.5) fL Neut % (Auto) 84.1 H (43.0-75.0) % Lymph % (Auto) 7.3 L (20.5-60.0) % Buchanan % (Auto) 7.5 (1.7-12.0) % Eos % (Auto) 0.1 L (0.9-7.0) % Baso % (Auto) 0.3 (0.2-2.0) % Neut # (Auto) 14.9 H (1.4-6.5) 10^3/uL Lymph # (Auto) 1.3 (1.2-3.8) 10^3/uL Buchanan # (Auto) 1.3 H (0.3-0.8) 10^3/uL Eos # (Auto) 0.0 (0.0-0.7) 10^3/uL Baso # (Auto) 0.1 (0.0-0.1) 10^3/uL Abs Immat Gran (auto) 0.12 H (0.00-0.03) 10^3/uL Imm/Tot Granulo (auto) 0.7 H (0.0-0.5) % Sodium 138 (136-145) mmol/L Potassium 4.0 (3.5-5.1) mmol/L Chloride 98 (98-107) mmol/L Carbon Dioxide 28.0 (21.0-32.0) mmol/L Anion Gap 16.0 BUN 28.0 H (7.0-18.0) mg/dL Creatinine 1.59 H (0.55-1.02) mg/dL Est GFR ( Amer) 38 L (>=60) Est GFR (Non-Af Amer) 31 L (>=60) BUN/Creatinine Ratio 17.6 Glucose 145 H (74-106) mg/dL Lactate 2.0 (0.4-2.0) mmol/L Calcium 9.4 (8.5-10.1) mg/dL Total Bilirubin 0.6 (0.2-1.0) mg/dL AST 21 (15-37) U/L ALT 19 (14-59) U/L Alkaline Phosphatase 94 (46-116) U/L Total Protein 7.4 (6.4-8.2) g/dL Albumin 3.5 (3.4-5.0) g/dL Globulin 3.9 g/dL Albumin/Globulin Ratio 0.9 Lipase 54.0 (16.0-77.0) U/L Urine Color Franklin A (YELLOW) Urine Clarity Clear (CLEAR) Urine pH 5.5 (5.0-9.0) Ur Specific [place]worth >=1.030 A (1.005-1.025) Urine Protein 30 A (NEG/TRACE) mg/dL Urine Glucose (UA) Negative (NEGATIVE) mg/dL Urine Ketones 40 A (NEGATIVE) mg/dL Urine Occult Blood Large A (NEGATIVE) Urine Nitrite Negative (NEGATIVE) Urine Bilirubin Moderate A (NEGATIVE) Urine Urobilinogen 1.0 (0.2-1.0) EU/dL Ur Leukocyte Esterase Moderate A (NEGATIVE) Urine RBC 5-10 A (0-2) #/HPF Urine WBC 20-50 A (NONE SEEN) #/HPF Ur Squamous Epith Cells Moderate A (NONE/RARE) #/LPF Urine Crystals None seen (None Seen) #/HPF Urine Bacteria Large A (NONE SEEN) #/HPF Urine Casts Seen A (NONE SEEN) #/LPF Hyaline Casts Few Urine Mucus None seen (NONE SEEN) Ur Culture Indicated? Yes Influenza Type A Ag Negative Influenza Type B Ag Negative Discharge Plan Discharge Chief Complaint: Nausea/Vomiting/Diarrhea Clinical Impression: Leukocytosis, Nausea vomiting and diarrhea, Acute UTI, Acute kidney injury, Compression fx, lumbar spine Prescriptions / Home Meds: No Action simvastatin 40 mg tablet 40 mg PO DAILY levothyroxine 112 mcg tablet 112 mcg PO .before breakfast lisinopril 10 mg tablet 10 mg PO DAILY tramadol 50 mg tablet 50 mg PO Q8H hyoscyamine sulfate 0.125 mg tablet, sublingual 0.125 mg PO Q6H PRN (Reason: abdominal discomfort) cetirizine 10 mg tablet 10 mg PO DAILY Referrals: Pio Gibbs MD [Primary Care Provider] - 1 week
[2023-06-06 19:22] LABS: Basophils Absolute Auto 0.1 10^3/uL (0.0-0.1); Basophils Percent Auto 0.3 % (0.2-2.0); Eosinophils Percent Auto 0.1 % (0.9-7.0); Hematocrit 43.6 % (36.0-48.0); Hemoglobin 14.4 g/dL (12.0-16.0); Immature Granulocytes Abs Auto 0.12 10^3/uL (0.00-0.03); Immature Granulocytes Pct Auto 0.7 % (0.0-0.5); Lymphocytes Absolute Auto 1.3 10^3/uL (1.2-3.8); Lymphocytes Percent Auto 7.3 % (20.5-60.0); Mean Corpuscular Hemoglobin 29.2 pg (26.7-34.0); Mean Corpuscular Volume 88.4 fL (81.0-99.0); Mean Platelet Volume 8.7 fL (9.5-13.5); Monocytes Absolute Auto 1.3 10^3/uL (0.3-0.8); Monocytes Percent Auto 7.5 % (1.7-12.0); Neutrophils Absolute Auto 14.9 10^3/uL (1.4-6.5); Neutrophils Percent Auto 84.1 % (43.0-75.0); Platelet Count 390 10^3/uL (150-450); Red Blood Count 4.93 10^6/uL (4.20-5.40); White Blood Count 17.7 10^3/uL (4.0-11.0)
[2023-06-06] MEDS: FAMOTIDINE/PF 20 MG/2 ML VIAL IV (19:25)
[2023-06-06] MEDS: 0.9 % SODIUM CHLORIDE 1,000 ML 100 ML IV (19:25)
[2023-06-06] MEDS: ONDANSETRON PF 4 MG/2 ML VIAL IV (19:25)
[2023-06-06 19:38] LABS: Alanine Aminotransferase 19 U/L (14-59); Albumin Globulin Ratio 0.9; Albumin Level 3.5 g/dL (3.4-5.0); Alkaline Phosphatase 94 U/L (46-116); Aspartate Amino Transferase 21 U/L (15-37); BUN Creatinine Ratio 17.6; Bilirubin Total 0.6 mg/dL (0.2-1.0); Calcium 9.4 mg/dL (8.5-10.1); Chloride 98 mmol/L (98-107); Estimated GFR (African America 38 (>=60); Estimated GFR (Non-African Ame 31 (>=60); Globulin 3.9 g/dL; Glucose 145 mg/dL (74-106); Sodium 138 mmol/L (136-145); Total Protein 7.4 g/dL (6.4-8.2)
--- NOTE | 2023-06-06 20:00 | CT_ITS ---
The [address] [address] Patient Name: JERRY FINNEY MRN: [id number] date: 1945 Sex: F Assigned Patient Location: ER Current Patient Location: ER Accession/Order Number: [id number] Exam Date: 06/06/2023 20:05 Report Date: 06/06/2023 21:15 At the request of: YESENIA WASHBURN Procedure: CT abdomen pelvis wo con Indication: Abdominal pain Comparison: 05/07/2022 exam Procedure: Axial images were made from the diaphragms through the symphysis pubis. No oral contrast or intravenous contrast was given. Dose reduction techniques were achieved by using automated exposure control and/or adjustment of mA and/or kV according to patient size and/or use of iterative reconstruction technique. Findings: Liver/Biliary System: No liver masses are seen. No intra or extrahepatic biliary dilatation. Status post cholecystectomy. Pancreas/Spleen: No pancreatic ductal dilatation. No evidence of acute pancreatitis. No splenomegaly. Kidneys/Adrenals: No renal or ureteral stones are seen. No hydronephrosis or hydroureter bilaterally. Stable small renal hypodensities, probably cysts. No adrenal nodules. Aorta/Vessels: No evidence of aortic aneurysm. Evaluation of vessels is limited due to lack of IV contrast. Bowel/Fluid/Nodes: Stable moderate hiatus hernia. No bowel dilatation or bowel wall thickening. No evidence of bowel obstruction. Colonic diverticulosis with no evidence of diverticulitis. Appendix was not identified, however no secondary signs of appendicitis present. Right anterior pelvic wall hernia containing small bowel loop. No ascites or fluid collections. No adenopathy. Lung bases: Clear. Other findings: No aggressive osseous lesions are seen. Stable postoperative changes in midline anterior abdominal wall. Pelvis: No pelvic masses or adenopathy. No free fluid seen in the pelvis. Status post hysterectomy. Bladder grossly unremarkable. Other Findings: No aggressive osseous lesions are seen. Interval increase in collapse of L3 vertebra. CT/CT abdomen pelvis wo con Impression: 1. No evidence of acute abdominal or pelvic process. 2. Colonic diverticulosis with no evidence of diverticulitis. 3. Stable moderate hiatus hernia. 4. Right anterior pelvic wall hernia containing small bowel loop. No small bowel dilatation or wall thickening. No evidence of small bowel obstruction. 5. Stable small renal hypodensities, probably cysts. Status post cholecystectomy and hysterectomy. 6. Interval increase in collapse of L3 vertebra. Stable postoperative changes in midline anterior abdominal wall. Electronically authenticated by: FAMILIA CASTRO Date: 06/06/2023 21:15
[2023-06-06 20:43] LABS: Influenza Virus A Antigen Negative; Influenza Virus B Antigen Negative; Internal Control Within Normal Limits
[2023-06-06 22:20] LABS: Bilirubin Urine MODERATE (NEGATIVE); Blood Urine LARGE (NEGATIVE); Clarity Urine CLEAR (CLEAR); Color Urine ORANGE (YELLOW); Glucose Urine UA NEGATIVE (NEGATIVE); Ketones Urine 40 mg/dL (NEGATIVE); Leukocyte Esterase Urine MODERATE (NEGATIVE); Nitrite Urine NEGATIVE (NEGATIVE); Protein Urine 30 mg/dL (NEG/TRACE); Specific Gravity Urine >=1.030 (1.005-1.025); pH Urine 5.5 (5.0-9.0)
[2023-06-06 22:21] LABS: Urine Microscopic Indicated YES
[2023-06-06] MEDS: 0.9 % SODIUM CHLORIDE 1,000 ML 1000 ML IV (22:23)
[2023-06-06 22:34] LABS: WBC Urine 20-50 #/HPF (NONE SEEN)
[2023-06-06 22:35] LABS: Bacteria Urine LARGE #/HPF (NONE SEEN); Cast Seen? SEEN #/LPF (NONE SEEN); Crystals Seen? None Seen #/HPF (None Seen); Hyaline Casts Urine FEW; Mucus Urine NONE SEEN (NONE SEEN); Squamous Epithelial Cell Urine MODERATE #/LPF (NONE/RARE); Urine Culture Indicated YES
[2023-06-06] MEDS: CEFTRIAXONE 1,000 MG in 0.9 % SODIUM CHLORIDE 50 ML 100 MG IV (23:39)
[2023-06-07] VITALS (18 sets, daily range): BP systolic 115–132; BP diastolic 54–70; PULSE 52–86; RESP 14–16; TEMP 36.2–37; O2SAT 92–98; BMI 30.4
[2023-06-07] MEDS: ENOXAPARIN SODIUM 30 MG/0.3 ML SYRINGE SUBQ ×2 (02:43→22:00)
[2023-06-07] MEDS: 0.9 % SODIUM CHLORIDE 1,000 ML 100 ML IV ×3 (02:43→22:03)
[2023-06-07 04:07] LABS: Basophils Absolute Auto 0.1 10^3/uL (0.0-0.1); Basophils Percent Auto 0.3 % (0.2-2.0); Eosinophils Absolute Auto 0.1 10^3/uL (0.0-0.7); Eosinophils Percent Auto 0.6 % (0.9-7.0); Hematocrit 37.5 % (36.0-48.0); Hemoglobin 12.2 g/dL (12.0-16.0); Immature Granulocytes Pct Auto 0.7 % (0.0-0.5); Lymphocytes Absolute Auto 2.3 10^3/uL (1.2-3.8); Lymphocytes Percent Auto 15.8 % (20.5-60.0); Mean Corpuscular HGB Conc 32.5 g/dL (29.9-35.2); Mean Corpuscular Volume 89.1 fL (81.0-99.0); Mean Platelet Volume 8.6 fL (9.5-13.5); Monocytes Absolute Auto 1.2 10^3/uL (0.3-0.8); Neutrophils Percent Auto 74.6 % (43.0-75.0); Platelet Count 264 10^3/uL (150-450); Red Blood Count 4.21 10^6/uL (4.20-5.40); Red Cell Distribution Width 12.9 % (11.0-15.0); White Blood Count 14.8 10^3/uL (4.0-11.0)
[2023-06-07 04:18] LABS: Anion Gap 11.3; BUN Creatinine Ratio 23.1; Calcium 8.4 mg/dL (8.5-10.1); Chloride 105 mmol/L (98-107); Estimated GFR (African America 52 (>=60); Estimated GFR (Non-African Ame 43 (>=60); Glucose 100 mg/dL (74-106); Magnesium 1.8 mg/dL (1.8-2.4); Potassium 4.3 mmol/L (3.5-5.1); Sodium 137 mmol/L (136-145)
--- NOTE | 2023-06-07 05:15 | W.PM.TELEPN ---
Progress Note: Subjective Subjective Interval history: CC: back pain, generalized weakness HPI: 77 y/o Female presents with complaints of lower back pain after a mechanical fall at home. pain is constant, non radiating, moderate to severe intensity, worse with movement, no alleviating factors despite tramadol. evaluated in the ED at time of fall. comes back deconditioned, weak, decrease appetite, light headed, nausea, vomiting and lose stools.also with lower abdominal discomfort and urine frequency. in the ER, patient is afebrile,soft pressure and sinus tachycardia, labs remarkable for leukocytosis w/neutrophilia, U/A bactereia, WBC, RBC, CT A/P, non acute, L3 compression fracture indeterminate acquity. Fluids, rocephin and cultures obtained. PMHx: Hypothyroidism, hyperlipidemia, hypertension, overweight, PSHx:non contributory to todays visit FHx:Hypertension SHx: lives with family, no tobacco, etoh use ROS: negative except for HPI PE: Gen: lying in bed, mild distress due to back pain HEENT: NC/AT. EOMI CVS: RRR, no edema Lungs: normal respiratory effort, GI: mild pelvic tenderness, Neuro: no focal deficits, no saddle anesthia BAck: lumbar tenderness Exam Constitutional Vital Signs, click to edit/add: Last Vital Signs Temp 97.2 F L 06/07/23 00:38 Pulse 71 06/07/23 04:32 Resp 16 06/07/23 04:32 BP 115/70 06/07/23 00:38 Pulse Ox 98 06/07/23 00:50 O2 Del Method Room Air 06/07/23 00:50 Progress Note: Objective Labs Labs: Short CBC 06/06/23 06/07/23 Range/Units 18:55 03:53 WBC 17.7 H 14.8 H (4.0-11.0) 10^3/uL Hgb 14.4 12.2 (12.0-16.0) g/dL Hct 43.6 37.5 (36.0-48.0) % Plt Count 390 264 (150-450) 10^3/uL BMP 06/06/23 06/07/23 18:55 03:53 Sodium 138 137 Potassium 4.0 4.3 Chloride 98 105 Carbon Dioxide 28.0 25.0 BUN 28.0 H 28.0 H Creatinine 1.59 H 1.21 H Glucose 145 H 100 Calcium 9.4 8.4 L Liver Function 06/06/23 Range/Units 18:55 Total Bilirubin 0.6 (0.2-1.0) mg/dL AST 21 (15-37) U/L ALT 19 (14-59) U/L Alkaline Phosphatase 94 (46-116) U/L Albumin 3.5 (3.4-5.0) g/dL Urine 06/06/23 Range/Units 20:03 Urine Color [place] A (YELLOW) Urine Clarity Clear (CLEAR) Urine pH 5.5 (5.0-9.0) Ur Specific [place] >=1.030 A (1.005-1.025) Urine Protein 30 A (NEG/TRACE) mg/dL Urine Glucose (UA) Negative (NEGATIVE) mg/dL Progress Note: A&P Assessment and Plan (1) Leukocytosis: (2) Nausea vomiting and diarrhea: (3) Acute UTI: (4) Acute kidney injury: (5) Compression fx, lumbar spine: (6) Upper respiratory infection: (7) Bronchitis: Plan Sepsis 2/2 UTI (leukocytosis, Tachycardia) - 30 cc /kg Fluid bolus -Rocephin, check urine and blood cultures -monitor lactate, urine output - Bladder scan for post void residual Nausea vomiting diarrhea -supportive care, no diarrhea since arrival to the ER, if recurs can check stool studies -fluids hydration, anti emetics Fall at home with intractable back pain and L3 compression fracture - TLSO brace -Tyleonol, lidoderm patch, gabapentin for pain control - consider MRI Lumbar, kyphoplasty -PT/OT, fall precautions BARBARA: dehydration, hold lisinopril, IV fluid hydration, recheck BMP Cough/congestion- supportive care DVT ppx-heparin Full Code Medication reconciled discussed with ER doctor, bedside nurse, patient updated of plan of care, all questions answered to their satisfaction Disposition- pending PT/OT as the provider of this telehealth evaluation, requested by the patient's evaluating physician, i attest that i introduced myself to the patient, provided my credentials, and determined that telemedicine via a real time 2 way interactive via audio and video platform is an appropriate and effective means of providing this service. i reviewed patient chart, and had a discussion with patient and caring nurse, mutually agreed to continue telehealth visit. Telemedicine Attestation Telemedicine Attestation I conducted this encounter from [[place], [place]] via secure live, [id number] video conference with the patient, located at [facility] with [nursing staff]. Prior to the interview, the risks and benefits of telemedicine were discussed with the patient and verbal consent was obtained.
[2023-06-07] MEDS: LEVOTHYROXINE SODIUM 112 MCG TABLET PO (08:49)
[2023-06-07] MEDS: TRAMADOL HCL 50 MG TABLET PO ×2 (08:49→14:59)
[2023-06-07] MEDS: CETIRIZINE HCL 10 MG TABLET PO (08:49)
[2023-06-07] MEDS: L. ACIDOPHILUS/L.BULGARICUS 1 PACKET GRAN.PACK PO ×2 (08:50→21:58)
[2023-06-07] MEDS: LISINOPRIL 10 MG TABLET PO (08:50)
[2023-06-07] MEDS: OMEPRAZOLE 20 MG CAPSULE.DR PO (08:52)
[2023-06-07] MEDS: CHOLECALCIFEROL (VITAMIN D3) 25 MCG/1,000 UNITS TABLET 50 MCG PO (08:52)
[2023-06-07] MEDS: LIDOCAINE 5% PATCH 1 PATCH TOPICAL (08:55)
[2023-06-07 09:04] LABS: Thyroid Stimulating Hormone 0.853 uIU/mL (0.358-3.740)
[2023-06-07] MEDS: CIPROFLOXACIN IN 5 % DEXTROSE 400 MG/200 ML PIGGYBACK 200 MG IV (09:19)
--- NOTE | 2023-06-07 10:33 | P.HP_ITS ---
H&P: HPI History of Present Illness Chief complaint: Diarrhea, Weakness Narrative: Patient has had falls over the last week. Had increasing weakness yesterday. Presented to the emergency room and found to have significant leukocytosis, acute kidney injury secondary to acute UTI Review of Systems ROS Status of ROS 10 or more systems reviewed and unremarkable except as noted in history and below [facility] Medical History Anxiety ?F41.9 - Anxiety disorder, unspecified (ICD-10) Arthritis ?M19.90 - Unspecified osteoarthritis, unspecified site (ICD-10) B12 deficiency ?E53.8 - Deficiency of other specified B group vitamins (ICD-10) Cervical radiculopathy ?M54.12 - Radiculopathy, cervical region (ICD-10) Compression fracture of L5 vertebra ?S32.050A - Wedge compression fracture of fifth lumbar vertebra, initial encounter for closed fracture (ICD-10) Diverticula of colon ?K57.30 - Diverticulosis of large intestine without perforation or abscess without bleeding (ICD-10) Fall ?W19.XXXA - Unspecified fall, initial encounter (ICD-10) Graves disease ?E05.00 - Thyrotoxicosis with diffuse goiter without thyrotoxic crisis or storm (ICD-10) Hypertension ?I10 - Essential (primary) hypertension (ICD-10) Low back pain ?M54.50 - Low back pain, unspecified (ICD-10) Osteopenia ?M85.80 - Other specified disorders of bone density and structure, unspecified site (ICD-10) Small bowel obstruction ?K56.609 - Unspecified intestinal obstruction, unspecified as to partial versus complete obstruction (ICD-10) Type 2 diabetes mellitus ?E11.9 - Type 2 diabetes mellitus without complications (ICD-10) Ventral hernia ?K43.9 - Ventral hernia without obstruction or gangrene (ICD-10) Surgical History (Updated 05/29/23 @ 11:44 by Mae Escoto RN) History of cholecystectomy ?Z90.49 - Acquired absence of other specified parts of digestive tract (ICD- 10) History of colon resection ?Z90.49 - Acquired absence of other specified parts of digestive tract (ICD- 10) Family History (Updated 06/07/23 @ 00:32 by Diane Mcmullen) Other Family history of CHF (congestive heart failure) Family history of cancer Family history of diabetes mellitus Family history of hypertension Social History Smoking status: Never smoker Gender Identity: female Meds Home Medications and Allergies Home Medications Medication Instructions Recorded Confirmed Type cetirizine 10 mg tablet 10 mg PO DAILY 05/29/23 06/06/23 History hyoscyamine sulfate 0.125 mg 0.125 mg PO Q6H PRN abdominal 05/29/23 06/06/23 History sublingual tablet discomfort levothyroxine 112 mcg tablet 112 mcg PO .before breakfast 05/29/23 06/06/23 History lisinopril 10 mg tablet 10 mg PO DAILY 05/29/23 06/06/23 History simvastatin 40 mg tablet 40 mg PO DAILY 05/29/23 06/06/23 History tramadol 50 mg tablet 50 mg PO Q8H 05/29/23 06/06/23 History Allergies Allergy/AdvReac Type Severity Reaction Status Date / Time Iodinated Contrast Media Allergy Unknown Verified 05/29/23 11:34 diclofenac Allergy Verified 05/29/23 11:34 [From Arthrotec 50] misoprostol Allergy Verified 05/29/23 11:34 [From Arthrotec 50] levofloxacin AdvReac Intermediate Hives Verified 05/29/23 11:34 Penicillins AdvReac Intermediate Verified 05/29/23 11:34 Exam Constitutional Vital Signs, click to edit/add: Last Vital Signs Temp 98.0 F 06/07/23 09:05 Pulse 84 06/07/23 10:00 Resp 16 06/07/23 09:05 BP 132/54 06/07/23 09:05 Pulse Ox 98 06/07/23 09:05 O2 Del Method Room Air 06/07/23 09:05 Results Labs Labs: Short CBC 06/06/23 06/07/23 Range/Units 18:55 03:53 WBC 17.7 H 14.8 H (4.0-11.0) 10^3/uL Hgb 14.4 12.2 (12.0-16.0) g/dL Hct 43.6 37.5 (36.0-48.0) % Plt Count 390 264 (150-450) 10^3/uL BMP 06/06/23 06/07/23 18:55 03:53 Sodium 138 137 Potassium 4.0 4.3 Chloride 98 105 Carbon Dioxide 28.0 25.0 BUN 28.0 H 28.0 H Creatinine 1.59 H 1.21 H Glucose 145 H 100 Calcium 9.4 8.4 L Liver Function 06/06/23 Range/Units 18:55 Total Bilirubin 0.6 (0.2-1.0) mg/dL AST 21 (15-37) U/L ALT 19 (14-59) U/L Alkaline Phosphatase 94 (46-116) U/L Albumin 3.5 (3.4-5.0) g/dL Urine 06/06/23 Range/Units 20:03 Urine Color [place] A (YELLOW) Urine Clarity Clear (CLEAR) Urine pH 5.5 (5.0-9.0) Ur Specific [place] >=1.030 A (1.005-1.025) Urine Protein 30 A (NEG/TRACE) mg/dL Urine Glucose (UA) Negative (NEGATIVE) mg/dL Assessment and Plan Assessment and Plan (1) Leukocytosis: (2) Nausea vomiting and diarrhea: (3) Acute UTI: (4) Acute kidney injury: (5) Compression fx, lumbar spine: Plan Sinus tachycardia, relative hypotension, leukocytosis, acute kidney injury secondary to acute UTI resulting in sepsis. Continue with IV antibiotics. She has not had reactions to Cipro in the past we will maintain Cipro and Rocephin. Sensitivities should return in 2 days Acute kidney injury with elevation in her creatinine 50% of her baseline. Due to dehydration-continue with IV fluids. L3 compression fracture-with pain in that location and changes on scans it would be consistent with an acute to subacute compression fracture. Will start patient on Miacalcin nasal spray and pain control for patient safety she may benefit from a rehabilitation stay. Abdominal wall hernia-no symptoms currently Low vitamin D level-supplement Hypothyroidism-check levels Hypercholesterolemia continue with home medications Morbid obesity-diet management With sepsis syndrome as outlined above-make patient inpatient status. Likely stay 2 to 3 days minimum
[2023-06-07] MEDS: HYOSCYAMINE SULFATE 0.125 MG TAB.SUBL SL (12:07)
[2023-06-07] MEDS: CALCITONIN,SALMON,SYNTHETIC 30 SPRAY/3.7 ML BOTTLE NS (12:07)
[2023-06-07] MEDS: HYDROCODONE/ACET 5-325 MG TABLET 1 TAB PO (20:03)
[2023-06-07] MEDS: CEFTRIAXONE 1,000 MG in 0.9 % SODIUM CHLORIDE 50 ML 100 MG IV (21:58)
[2023-06-07] MEDS: ATORVASTATIN CALCIUM 20 MG TABLET PO (21:59)
[2023-06-07] MEDS: ACETAMINOPHEN 500 MG TABLET 1000 MG PO (21:59)
[2023-06-08] VITALS (61 sets, daily range): BP systolic 114–155; BP diastolic 55–78; PULSE 52–110; RESP 12–34; TEMP 36.6–37; O2SAT 93–98
[2023-06-08] MEDS: TRAMADOL HCL 50 MG TABLET PO (04:03)
[2023-06-08 05:12] LABS: Basophils Percent Auto 0.5 % (0.2-2.0); Eosinophils Absolute Auto 0.3 10^3/uL (0.0-0.7); Eosinophils Percent Auto 4.1 % (0.9-7.0); Hematocrit 36.4 % (36.0-48.0); Hemoglobin 11.6 g/dL (12.0-16.0); Immature Granulocytes Abs Auto 0.07 10^3/uL (0.00-0.03); Immature Granulocytes Pct Auto 0.9 % (0.0-0.5); Lymphocytes Absolute Auto 2.1 10^3/uL (1.2-3.8); Lymphocytes Percent Auto 27.7 % (20.5-60.0); Mean Corpuscular HGB Conc 31.9 g/dL (29.9-35.2); Mean Corpuscular Hemoglobin 29.4 pg (26.7-34.0); Mean Corpuscular Volume 92.2 fL (81.0-99.0); Monocytes Absolute Auto 0.7 10^3/uL (0.3-0.8); Monocytes Percent Auto 9.3 % (1.7-12.0); Neutrophils Absolute Auto 4.2 10^3/uL (1.4-6.5); Neutrophils Percent Auto 57.5 % (43.0-75.0); Platelet Count 286 10^3/uL (150-450); Red Blood Count 3.95 10^6/uL (4.20-5.40); Red Cell Distribution Width 13.1 % (11.0-15.0); White Blood Count 7.4 10^3/uL (4.0-11.0)
[2023-06-08 05:15] LABS: Anion Gap 12.6; BUN Creatinine Ratio 21.7; Calcium 7.6 mg/dL (8.5-10.1); Carbon Dioxide 26.3 mmol/L (21.0-32.0); Chloride 105 mmol/L (98-107); Estimated GFR (African America >60 (>=60); Estimated GFR (Non-African Ame 59 (>=60); Glucose 75 mg/dL (74-106); Potassium 3.9 mmol/L (3.5-5.1); Sodium 140 mmol/L (136-145)
[2023-06-08] MEDS: LEVOTHYROXINE SODIUM 112 MCG TABLET PO (05:49)
[2023-06-08] MEDS: HYDROCODONE/ACET 5-325 MG TABLET 1 TAB PO ×2 (05:51→12:41)
--- NOTE | 2023-06-08 07:47 | P.PN_ITS ---
Progress Note: Subjective Subjective Interval history: Patient still feeling very weak. Patient with trying to move around. Unsteady on feet when discussing ambulation with nursing Exam Constitutional Vital Signs, click to edit/add: Last Vital Signs Temp 98.6 F 06/08/23 04:16 Pulse 57 L 06/08/23 05:53 Resp 16 06/08/23 04:16 BP 139/65 06/08/23 04:16 Pulse Ox 98 06/08/23 05:55 O2 Del Method Room Air 06/08/23 05:55 Documenting provider has reviewed patient's vital signs: yes Common normals: apparent distress (Appears very fatigued) HENMT Common normals: oral mucous membranes not moist (Appears dry still but improved) Chest Common normals: inspection of chest normal Respiratory Common normals: normal respiratory effort and no use of accessory muscles Cardio Common normals: regular rate, regular rhythm and no murmurs GI Common normals: Normal to inspection, nondistended, normoactive bowel sounds present Extremity Common normals: normal to inspection Progress Note: Objective Labs Labs: Short CBC 06/08/23 Range/Units 03:44 WBC 7.4 (4.0-11.0) 10^3/uL Hgb 11.6 L (12.0-16.0) g/dL Hct 36.4 (36.0-48.0) % Plt Count 286 (150-450) 10^3/uL [facility] 06/08/23 03:44 Sodium 140 Potassium 3.9 Chloride 105 Carbon Dioxide 26.3 BUN 20.0 H Creatinine 0.92 Glucose 75 Calcium 7.6 L Progress Note: A&P Assessment and Plan (1) Leukocytosis: (2) Nausea vomiting and diarrhea: (3) Acute UTI: (4) Acute kidney injury: (5) Compression fx, lumbar spine: Plan Sinus tachycardia, relative hypotension, leukocytosis, acute kidney injury secondary to acute UTI resulting in sepsis. Continue with IV antibiotics. She has not had reactions to Cipro in the past we will maintain Cipro and Rocephin. Sensitivities should return in 1 days Acute kidney injury with elevation in her creatinine 50% of her baseline. Due to dehydration - improved so we will saline lock L3 compression fracture-with pain in that location and changes on scans it would be consistent with an acute to subacute compression fracture. Will start patient on Miacalcin nasal spray and pain control for patient safety she may benefit from a rehabilitation stay. Abdominal wall hernia-no symptoms currently Low vitamin D level-supplement Iron deficiency anemia-check occult blood also Hypocalcemia-supplement Hypothyroidism-check levels Hypercholesterolemia continue with home medications Morbid obesity-diet management With sepsis syndrome as outlined above-make patient inpatient status. Likely stay 2 to 3 days minimum-with weakness persisting patient for her safety is in need of rehab. ?
--- NOTE | 2023-06-08 07:52 | CM.NOTE ---
Rounds made with Dr. Gibbs. Await PT/OT notes to determine plan. No plan for discharge today..
[2023-06-08] MEDS: HYOSCYAMINE SULFATE 0.125 MG TAB.SUBL SL ×3 (08:00→16:08)
[2023-06-08] MEDS: CALCIUM CARBONATE 600 MG TABLET PO ×3 (08:02→21:32)
[2023-06-08] MEDS: CHOLECALCIFEROL (VITAMIN D3) 25 MCG/1,000 UNITS TABLET 50 MCG PO (08:03)
[2023-06-08] MEDS: OMEPRAZOLE 20 MG CAPSULE.DR PO (08:03)
[2023-06-08] MEDS: CETIRIZINE HCL 10 MG TABLET PO (08:03)
[2023-06-08] MEDS: L. ACIDOPHILUS/L.BULGARICUS 1 PACKET GRAN.PACK PO ×2 (08:03→21:32)
[2023-06-08] MEDS: LIDOCAINE 5% PATCH 1 PATCH TOPICAL (08:03)
[2023-06-08] MEDS: LISINOPRIL 10 MG TABLET PO (08:03)
[2023-06-08] MEDS: CALCITONIN,SALMON,SYNTHETIC 30 SPRAY/3.7 ML BOTTLE NS (08:04)
[2023-06-08] MEDS: CIPROFLOXACIN IN 5 % DEXTROSE 400 MG/200 ML PIGGYBACK 200 MG IV (09:38)
--- NOTE | 2023-06-08 09:58 | CM.NOTE ---
Discussed with pt about discharge planning, pt states Dr. Gibbs recommends I get some inpatient therapy at a alf prior to going back to my home. Pt voices she would like to go to the [facility] but wants case management to speak with her daughter. Called pt's daughter, both pt and anibal in agreement if she meets for skilled therapy, [facility] would be place of choice.
--- NOTE | 2023-06-08 10:31 | CM.NOTE ---
Important Message From Medicare discussed with pt, pt verbalizes understanding and signs paper. Original given to pt and copy placed on pt's chart.
--- NOTE | 2023-06-08 12:42 | CM.NOTE ---
Called and spoke with Chitra jimenez Morrison regarding new referral and sent clinical.
--- NOTE | 2023-06-08 13:33 | CM.NOTE ---
Chitra called from [facility] and pt will be accepted for skilled when medically discharged. Updated pt.
--- NOTE | 2023-06-08 13:33 | CM.NOTE ---
Dr. Gibbs updated that pt is able to go to [facility] at discharge.
[2023-06-08] MEDS: ENOXAPARIN SODIUM 30 MG/0.3 ML SYRINGE SUBQ (21:31)
[2023-06-08] MEDS: ATORVASTATIN CALCIUM 20 MG TABLET PO (21:32)
--- NOTE | 2023-06-08 23:19 | PC.NURSE ---
Pt lost IV acess around 2200 on 06/08. SUPERVISOR STONE, RN and Nursing supervisor slitting and shipping all tried for a total of 7 tries. No success. Will try to get ultrasound guided IV. Tele Dr Shama Brandt notified and said if we can not get IV access to hold ATB.
[2023-06-09] VITALS (19 sets, daily range): BP systolic 112–154; BP diastolic 69–85; PULSE 52–150; RESP 18; TEMP 37.4; O2SAT 94–97
[2023-06-09] MEDS: CEFTRIAXONE 1,000 MG in 0.9 % SODIUM CHLORIDE 50 ML 100 MG IV (03:09)
--- NOTE | 2023-06-09 03:12 | PC.NURSE ---
Rocephin given late due to losing IV access.
[2023-06-09 04:16] LABS: Basophils Percent Auto 0.6 % (0.2-2.0); Eosinophils Absolute Auto 0.1 10^3/uL (0.0-0.7); Eosinophils Percent Auto 1.9 % (0.9-7.0); Hematocrit 34.6 % (36.0-48.0); Hemoglobin 11.2 g/dL (12.0-16.0); Immature Granulocytes Abs Auto 0.06 10^3/uL (0.00-0.03); Immature Granulocytes Pct Auto 0.9 % (0.0-0.5); Lymphocytes Absolute Auto 1.2 10^3/uL (1.2-3.8); Lymphocytes Percent Auto 17.6 % (20.5-60.0); Mean Corpuscular HGB Conc 32.4 g/dL (29.9-35.2); Mean Corpuscular Hemoglobin 29.5 pg (26.7-34.0); Mean Corpuscular Volume 91.1 fL (81.0-99.0); Mean Platelet Volume 8.4 fL (9.5-13.5); Monocytes Absolute Auto 0.6 10^3/uL (0.3-0.8); Monocytes Percent Auto 9.4 % (1.7-12.0); Neutrophils Absolute Auto 4.8 10^3/uL (1.4-6.5); Neutrophils Percent Auto 69.6 % (43.0-75.0); Platelet Count 269 10^3/uL (150-450); Red Cell Distribution Width 13.1 % (11.0-15.0); White Blood Count 6.8 10^3/uL (4.0-11.0)
[2023-06-09 04:27] LABS: Anion Gap 9.6; BUN Creatinine Ratio 14.5; Calcium 8.2 mg/dL (8.5-10.1); Carbon Dioxide 27.3 mmol/L (21.0-32.0); Chloride 108 mmol/L (98-107); Estimated GFR (African America >60 (>=60); Estimated GFR (Non-African Ame >60 (>=60); Glucose 88 mg/dL (74-106); Potassium 3.9 mmol/L (3.5-5.1); Sodium 141 mmol/L (136-145)
[2023-06-09] MEDS: CALCIUM CARBONATE 600 MG TABLET PO ×3 (05:38→21:48)
[2023-06-09] MEDS: LEVOTHYROXINE SODIUM 112 MCG TABLET PO (05:38)
--- NOTE | 2023-06-09 09:39 | PT.DAILY ---
Physical Therapy Daily Note PT Daily Note/Assess Start: 06/09/23 09:35 Freq: Status: Active Protocol: Document 06/09/23 09:20 CHRISTOPHER (Rec: 06/09/23 09:39 CHRISTOPHER [id number]) Physical Therapy Daily Note/Assessment Time In/Time Out Time In 09:20 Time Out 09:35 Pain In Pain Level 8 Pain Out Pain Level 9 Subjective Subjective Patient reports has been up in chair, and just so tired wishes to return to bed. Agrees to PT. Pain is very high with any movement. Therapeutic Exercise Time Therapeutic Exercise Minutes (minutes) 5 Therapeutic Exercise Units 0 Therapeutic Exercise Treatment Therapeutic Exercise Treatment Seated exercises 10 reps all planes. Therapeutic Activity Time Therapeutic Activity Minutes (minutes) 10 Therapeutic Activity Units 1 Therapeutic Activity Treatment Bed Mobility Ability Moderate Assist Chair Transfer Ability Contact Guard Assist Therapeutic Activity Comments Sit to stand from chair CGA. Gait 15ft. around bed CGA with RW. Very slow and guarded. Complains of pain. Sit to supine mod assist, patient reports high pain with this. Total Physical Therapy Time Total Therapy Minutes 15 Total Physical Therapy Units 1 Summary Daily Note Summary Improving with gait ability but still limited due to high pain levels. Continue to recommend SNF at [place] to improve strength, as patient's functional ability is limited at this time due to weakness and pain.
--- NOTE | 2023-06-09 09:48 | P.PN_ITS ---
Progress Note: Subjective Subjective Interval history: Looks better than yesterday. But does have some and significant weakness. States she just ambulated to the bathroom and back and feels exhausted. Exam Constitutional Vital Signs, click to edit/add: Last Vital Signs Temp 99.4 F 06/09/23 05:14 Pulse 56 L 06/09/23 07:57 Resp 18 06/09/23 05:14 BP 154/85 H 06/09/23 05:14 Pulse Ox 97 06/09/23 05:14 O2 Del Method Room Air 06/09/23 05:14 Documenting provider has reviewed patient's vital signs: yes Common normals: apparent distress (Appears very fatigued) HENMT Common normals: oral mucous membranes not moist (Appears dry still but improved) Chest Common normals: inspection of chest normal Respiratory Common normals: normal respiratory effort and no use of accessory muscles Cardio Common normals: regular rate, regular rhythm and no murmurs GI Common normals: Normal to inspection, nondistended, normoactive bowel sounds present Extremity Common normals: normal to inspection Progress Note: Objective Labs Labs: Short CBC 06/09/23 Range/Units 03:59 WBC 6.8 (4.0-11.0) 10^3/uL Hgb 11.2 L (12.0-16.0) g/dL Hct 34.6 L (36.0-48.0) % Plt Count 269 (150-450) 10^3/uL BMP 06/09/23 03:59 Sodium 141 Potassium 3.9 Chloride 108 H Carbon Dioxide 27.3 BUN 12.0 Creatinine 0.83 Glucose 88 Calcium 8.2 L Progress Note: A&P Assessment and Plan (1) Leukocytosis: (2) Nausea vomiting and diarrhea: (3) Acute UTI: (4) Acute kidney injury: (5) Compression fx, lumbar spine: Plan Sinus tachycardia, relative hypotension, leukocytosis, acute kidney injury secondary to acute UTI resulting in sepsis. Culture returned with no growth but still suspect UTI. Will change patient to oral antibiotics today. Acute kidney injury with elevation in her creatinine 50% of her baseline. Due to dehydration -resolved and stable over the last 2 days. L3 compression fracture-with pain in that location and changes on scans it would be consistent with an acute to subacute compression fracture. Pain somewhat improved but persisting Abdominal wall hernia-no symptoms currently Low vitamin D level-supplement Iron deficiency anemia-check occult blood also Lucehvdlnnhd-mxpzhawhro-cvuanszz L Hypothyroidism-check levels Hypercholesterolemia continue with home medications Morbid obesity-diet management See if she tolerates oral antibiotics today. Likely transfer to rehab tomorrow. ?
[2023-06-09] MEDS: CIPROFLOXACIN IN 5 % DEXTROSE 400 MG/200 ML PIGGYBACK 200 MG IV (09:55)
[2023-06-09] MEDS: CHOLECALCIFEROL (VITAMIN D3) 25 MCG/1,000 UNITS TABLET 50 MCG PO (09:58)
[2023-06-09] MEDS: LISINOPRIL 10 MG TABLET PO (09:58)
[2023-06-09] MEDS: CETIRIZINE HCL 10 MG TABLET PO (09:58)
[2023-06-09] MEDS: TRAMADOL HCL 50 MG TABLET PO (09:58)
[2023-06-09] MEDS: OMEPRAZOLE 20 MG CAPSULE.DR PO (09:59)
[2023-06-09] MEDS: LIDOCAINE 5% PATCH 1 PATCH TOPICAL (09:59)
[2023-06-09] MEDS: L. ACIDOPHILUS/L.BULGARICUS 1 PACKET GRAN.PACK PO ×2 (09:59→21:48)
[2023-06-09] MEDS: CALCITONIN,SALMON,SYNTHETIC 30 SPRAY/3.7 ML BOTTLE NS (10:00)
[2023-06-09 11:42] LABS: Adenovirus F 40/41 NOT DETECTED (NOT DETECTE); Astrovirus NOT DETECTED (NOT DETECTE); Campylobacter NOT DETECTED (NOT DETECTE); Cryptosporidium NOT DETECTED (NOT DETECTE); Cyclospora cayetanensis NOT DETECTED (NOT DETECTE); Entamoeba histolytica NOT DETECTED (NOT DETECTE); Enteroaggregative E.coli NOT DETECTED (NOT DETECTE); Enteropathogenic E.coli NOT DETECTED (NOT DETECTE); Enterotoxigenic E. coli NOT DETECTED (NOT DETECTE); Giardia lamblia NOT DETECTED (NOT DETECTE); Norovirus GI/GII NOT DETECTED (NOT DETECTE); Plesiomonas shigelloides NOT DETECTED (NOT DETECTE); Rotavirus A NOT DETECTED (NOT DETECTE); Salmonella NOT DETECTED (NOT DETECTE); Sapovirus NOT DETECTED (NOT DETECTE); Shiga-like toxin-producing E.C NOT DETECTED (NOT DETECTE); Shigella/Enteroinvasive E.coli NOT DETECTED (NOT DETECTE); Vibrio NOT DETECTED (NOT DETECTE); Vibrio cholerae NOT DETECTED (NOT DETECTE); Yersinia enterocolitica NOT DETECTED (NOT DETECTE)
[2023-06-09] MEDS: HYOSCYAMINE SULFATE 0.125 MG TAB.SUBL SL ×2 (11:47→17:17)
[2023-06-09 12:14] LABS: Occult Blood Positive
[2023-06-09] MEDS: ENOXAPARIN SODIUM 30 MG/0.3 ML SYRINGE SUBQ (21:48)
[2023-06-09] MEDS: CIPROFLOXACIN HCL 500 MG TABLET PO (21:48)
[2023-06-09] MEDS: ATORVASTATIN CALCIUM 20 MG TABLET PO (21:48)
[2023-06-10] VITALS (8 sets, daily range): BP systolic 105–145; BP diastolic 73–77; PULSE 56–136; RESP 20; TEMP 36.8; O2SAT 92
[2023-06-10 05:26] LABS: Basophils Percent Auto 0.5 % (0.2-2.0); Eosinophils Absolute Auto 0.2 10^3/uL (0.0-0.7); Eosinophils Percent Auto 3.1 % (0.9-7.0); Hematocrit 33.6 % (36.0-48.0); Hemoglobin 10.9 g/dL (12.0-16.0); Immature Granulocytes Abs Auto 0.06 10^3/uL (0.00-0.03); Lymphocytes Absolute Auto 1.4 10^3/uL (1.2-3.8); Lymphocytes Percent Auto 23.5 % (20.5-60.0); Mean Corpuscular HGB Conc 32.4 g/dL (29.9-35.2); Mean Corpuscular Hemoglobin 29.5 pg (26.7-34.0); Mean Corpuscular Volume 91.1 fL (81.0-99.0); Mean Platelet Volume 9.1 fL (9.5-13.5); Monocytes Absolute Auto 0.7 10^3/uL (0.3-0.8); Monocytes Percent Auto 11.3 % (1.7-12.0); Neutrophils Absolute Auto 3.5 10^3/uL (1.4-6.5); Neutrophils Percent Auto 60.6 % (43.0-75.0); Platelet Count 276 10^3/uL (150-450); Red Blood Count 3.69 10^6/uL (4.20-5.40); White Blood Count 5.8 10^3/uL (4.0-11.0)
[2023-06-10 05:33] LABS: Anion Gap 9.4; BUN Creatinine Ratio 12.7; Calcium 8.7 mg/dL (8.5-10.1); Carbon Dioxide 29.5 mmol/L (21.0-32.0); Chloride 107 mmol/L (98-107); Estimated GFR (African America >60 (>=60); Estimated GFR (Non-African Ame >60 (>=60); Glucose 93 mg/dL (74-106); Potassium 3.9 mmol/L (3.5-5.1); Sodium 142 mmol/L (136-145)
[2023-06-10] MEDS: LEVOTHYROXINE SODIUM 112 MCG TABLET PO (06:19)
[2023-06-10] MEDS: HYOSCYAMINE SULFATE 0.125 MG TAB.SUBL SL (07:58)
--- NOTE | 2023-06-10 08:23 | P.DS_ITS ---
DS: Providers Provider Date of admission: 06/07/23 11:30 Primary care physician: Pio Gibbs MD Consults: 06/07/23 01:44 Occupational Therapy Eval and Treat Routine Reason for consultation: FAlls Has provider been notified: Yes Physical Therapy Eval and Treat Routine Reason for consultation: FAlls Has provider been notified: Yes 06/07/23 10:35 Consult to Rounding Machine Tender Routine Reason for consult:: [facility] Occupational Therapy Eval and Treat Routine Reason for consultation: rehab Has provider been notified: No Physical Therapy Eval and Treat Routine Reason for consultation: rehab Has provider been notified: No DS: Diagnosis Discharge Diagnosis (1) Leukocytosis: (2) Nausea vomiting and diarrhea: (3) Acute UTI: (4) Acute kidney injury: (5) Compression fx, lumbar spine: Plan Sinus tachycardia, relative hypotension, leukocytosis, acute kidney injury secondary to acute UTI resulting in sepsis. Acute kidney injury with elevation in her creatinine 50% of her baseline. Due to dehydration L3 compression fracture-with pain in that location and changes on scans it would be consistent with an acute to subacute compression fracture. Abdominal wall hernia Low vitamin D level Iron deficiency anemia Hypocalcemia-supplement Hypothyroidism Hypercholesterolemia Morbid obesity DS: Summary Hospital Course Hospital Course: Patient admitted with recurrence of her diarrhea and weakness. Signs of acute UTI. Treated with IV antibiotics . Culture did return negative but will continue patient on oral antibiotics to finish out the course. Also found compression fracture. This is likely from recent fall. Diarrhea has resolved. Patient still weak with any ambulation. Also gets tachycardic with ambulation. She also has a underlying anxiety disorder. Complicating the tachycardia. This point patient is medically stable for discharge to rehab. We have necessary to improve strength and balance for preventing frequent falls. Patient already has the compression fracture. Medications see list. I will follow patient at rehab Time Spent with Patient Time attestation: Total time spent providing and/or coordinating discharge services: Exam Constitutional Vital Signs, click to edit/add: Last Vital Signs Temp 98.2 F 06/10/23 06:00 Pulse 136 H 06/10/23 07:58 Resp 20 06/10/23 06:00 BP 145/77 H 06/10/23 06:00 Pulse Ox 92 L 06/10/23 06:00 O2 Del Method Room Air 06/10/23 06:00 Documenting provider has reviewed patient's vital signs: yes Common normals: apparent distress (Appears very fatigued) HENMT Common normals: oral mucous membranes not moist (Appears dry still but improved) Chest Common normals: inspection of chest normal Respiratory Common normals: normal respiratory effort and no use of accessory muscles Cardio Common normals: regular rate, regular rhythm and no murmurs GI Common normals: Normal to inspection, nondistended, normoactive bowel sounds present Extremity Common normals: normal to inspection DS: Data Data Completed and Pending Labs on day of discharge: Labs from last 24 hours 06/10/23 06/09/23 04:00 11:28 WBC 5.8 RBC 3.69 L Hgb 10.9 L Hct 33.6 L MCV 91.1 MCH 29.5 MCHC 32.4 RDW 13.0 Plt Count 276 MPV 9.1 L Neut % (Auto) 60.6 Lymph % (Auto) 23.5 [place] % (Auto) 11.3 Eos % (Auto) 3.1 Baso % (Auto) 0.5 Neut # (Auto) 3.5 Lymph # (Auto) 1.4 [place] # (Auto) 0.7 Eos # (Auto) 0.2 Baso # (Auto) 0.0 Abs Immat Gran (auto) 0.06 H Imm/Tot Granulo (auto) 1.0 H Sodium 142 Potassium 3.9 Chloride 107 Carbon Dioxide 29.5 Anion Gap 9.4 BUN 10.0 Creatinine 0.79 Est GFR ( Amer) >60 Est GFR (Non-Af Amer) >60 BUN/Creatinine Ratio 12.7 Glucose 93 Calcium 8.7 Stool Occult Blood Positive A Stl C. cayetanensis PCR Not detected Stool Rotavirus (PCR) Not detected Stool Adenovirus (PCR) Not detected Stool Astrovirus (PCR) Not detected Stool Campylobacter PCR Not detected Stool Cryptosporidium PCR Not detected St Sh/Enteroin Ecoli PCR Not detected Stl Enterotoxigenic E PCR Not detected Stool EPEC (PCR) Not detected Stl E. histolytica PCR Not detected Stool Giardia Lamblia PCR Not detected Stl P. shigelloides PCR Not detected Stool Salmonella PCR Not detected Stool Sapovirus (PCR) Not detected Stl Shiga-like Tx [address].enterocolitica PCR Not detected Stl Vibrio cholerae PCR Not detected Stl Enteroaggr Ecoli PCR Not detected Stl Norovirus GI/GII PCR Not detected C. difficile Toxin A&B Not detected Vibrio Culture Not detected Preliminary micro results at discharge 06/06/23 23:35 - Preliminary Blood NO GROWTH AT 36-48 HOURS. FINAL TO FOLLOW. 06/06/23 23:27 Blood Culture Result 1 - Preliminary Blood NO GROWTH AT 36-48 HOURS. FINAL TO FOLLOW. Discharge Plan Discharge Disposition: Xfer [facility] Discharge Medications: New ciprofloxacin HCl 500 mg Tablet 500 mg PO BID Qty: 10 0RF calcium carbonate 600 mg calcium (1,500 mg) Tablet 600 mg PO TID Qty: 90 11RF calcitonin (salmon) 200 unit/actuation [place],Non-Aerosol 1 spray intranasal QD Qty: 3.7 11RF hydroxyzine pamoate 25 mg Capsule 25 mg PO QID PRN (Reason: Anxiety) Qty: 120 11RF tramadol 50 mg tablet 50 mg PO QID PRN (Reason: pain) Qty: 120 2RF Continued simvastatin 40 mg tablet 40 mg PO DAILY levothyroxine 112 mcg tablet 112 mcg PO .before breakfast lisinopril 10 mg tablet 10 mg PO DAILY hyoscyamine sulfate 0.125 mg tablet, sublingual 0.125 mg PO Q6H PRN (Reason: abdominal discomfort) cetirizine 10 mg tablet 10 mg PO DAILY Discontinued tramadol 50 mg tablet 50 mg PO Q8H Forms: Portal Instructions
[2023-06-10] MEDS: CALCITONIN,SALMON,SYNTHETIC 30 SPRAY/3.7 ML BOTTLE NS (09:16)
[2023-06-10] MEDS: L. ACIDOPHILUS/L.BULGARICUS 1 PACKET GRAN.PACK PO (09:17)
[2023-06-10] MEDS: CIPROFLOXACIN HCL 500 MG TABLET PO (09:17)
[2023-06-10] MEDS: METOPROLOL TARTRATE 25 MG TABLET PO (09:17)
[2023-06-10] MEDS: LIDOCAINE 5% PATCH 1 PATCH TOPICAL (09:17)
[2023-06-10] MEDS: LISINOPRIL 10 MG TABLET PO (09:17)
[2023-06-10] MEDS: HYDROXYZINE PAMOATE 25 MG CAPSULE PO (09:17)
[2023-06-10] MEDS: CETIRIZINE HCL 10 MG TABLET PO (09:17)
[2023-06-10] MEDS: CHOLECALCIFEROL (VITAMIN D3) 25 MCG/1,000 UNITS TABLET 50 MCG PO (09:17)
[2023-06-10] MEDS: OMEPRAZOLE 20 MG CAPSULE.DR PO (09:18)
[2023-06-10] MEDS: CALCIUM CARBONATE 600 MG TABLET PO (09:18)
[2023-06-10] MEDS: TRAMADOL HCL 50 MG TABLET PO (09:22)
--- NOTE | 2023-06-10 09:55 | PC.NURSE ---
Spray Gun Repairer talked with daughter and let her know plan to discharge to [facility] today. She will transport. Spray Gun Repairer also called and gave report to VALARIE Regan at [facility].
== END 2023-06-10 11:45 | DRG 872 ==
LOC: ER 23:11 → ICU 06-07 00:20 → MS 06-08 15:18
PROVIDERS: Internal Medicine; Nurse Practitioner Family; Admitting Provider Family Medicine; Emergency Provider Emergency Medicine; PCP Family Medicine; Visit Provider Family Medicine
DX: A41.59 Other Gram-negative sepsis (principal); S32.039A Unspecified fracture of third lumbar vertebra, initial encounter for closed fracture; N39.0 Urinary tract infection, site not specified; N17.9 Acute kidney failure, unspecified; R11.2 Nausea with vomiting, unspecified; R19.7 Diarrhea, unspecified; F41.9 Anxiety disorder, unspecified; M19.90 Unspecified osteoarthritis, unspecified site; K57.30 Diverticulosis of large intestine without perforation or abscess without bleeding; I10 Essential (primary) hypertension; E11.9 Type 2 diabetes mellitus without complications; Z90.49 Acquired absence of other specified parts of digestive tract; K44.9 Diaphragmatic hernia without obstruction or gangrene; E03.9 Hypothyroidism, unspecified; J40 Bronchitis, not specified as acute or chronic; J06.9 Acute upper respiratory infection, unspecified; Z91.81 History of falling; E86.0 Dehydration; R65.20 Severe sepsis without septic shock; K43.9 Ventral hernia without obstruction or gangrene; E78.00 Pure hypercholesterolemia, unspecified; E66.01 Morbid (severe) obesity due to excess calories; D50.9 Iron deficiency anemia, unspecified; E83.51 Hypocalcemia; W19.XXXA Unspecified fall, initial encounter; Z68.30 Body mass index [BMI] 30.0-30.9, adult
CPT/HCPCS: 36415; 74176; 80048; 80053; 81001; 82306; 83605; 83690; 83735; 84436; 84443; 85025; 87040; 87086; 87150; 87186; 87493; 87507; 87804; 90662; 93005; 94761; 96361; 96365; 96366; 96367; 96372; 96375; 97163; 97165; 97530; 99285; G0008; G0328

== ENCOUNTER 2023-06-20 12:49 | Outpatient (RCR) | payer MEDICARE, SELFPAY | END 2023-06-21 16:44 | disposition home or self-care (01) | LOC: PT 12:49 | PROVIDERS: PCP Family Medicine; Visit Provider Family Medicine | DX: R26.89 Other abnormalities of gait and mobility (principal); R53.1 Weakness | CPT/HCPCS: 97110; 97161 ==

== ENCOUNTER 2023-06-28 14:58 | Outpatient (REF) | payer MEDICARE, SELFPAY ==
[2023-06-28 15:37] LABS: Influenza Virus A Antigen Negative; Influenza Virus B Antigen Negative; Internal Control Within Normal Limits; Respiratory Syncytial Virus Not Detected (NOT DETECTE); SARS-CoV-2 Ag NEGATIVE (NEGATIVE)
[2023-06-29 15:09] LABS: SARS-CoV-2 NAA NOT DETECTED (NOT DETECTE)
== END 2023-06-28 14:59 | disposition home or self-care (01) ==
LOC: LAB 14:58
PROVIDERS: PCP Family Medicine; Visit Provider Family Medicine
DX: J21.9 Acute bronchiolitis, unspecified (principal); E53.8 Deficiency of other specified B group vitamins
CPT/HCPCS: 87420; 87635; 87798; 87804; 87811

== ENCOUNTER 2023-07-06 10:38 | Outpatient (OUT) | payer MEDICARE, SELFPAY ==
[2023-07-06 13:04] LABS: Bilirubin Urine NEGATIVE (NEGATIVE); Blood Urine NEGATIVE (NEGATIVE); Clarity Urine CLEAR (CLEAR); Color Urine YELLOW (YELLOW); Glucose Urine UA NEGATIVE (NEGATIVE); Ketones Urine TRACE mg/dL (NEGATIVE); Leukocyte Esterase Urine NEGATIVE (NEGATIVE); Nitrite Urine NEGATIVE (NEGATIVE); Protein Urine NEGATIVE (NEG/TRACE); Urobilinogen Urine 0.2 EU/dL (0.2-1.0); pH Urine 5.5 (5.0-9.0)
[2023-07-06 13:10] LABS: Bacteria Urine TRACE #/HPF (NONE SEEN); Crystals Seen? None Seen #/HPF (None Seen); Mucus Urine TRACE (NONE SEEN); RBC Urine NONE SEEN #/HPF (0-2); Squamous Epithelial Cell Urine FEW #/LPF (NONE/RARE); WBC Urine 0-2 #/HPF (NONE SEEN)
[2023-07-06 13:11] LABS: Cast Seen? NONE SEEN #/LPF (NONE SEEN)
== END 2023-07-06 10:39 | disposition home or self-care (01) ==
LOC: LAB 10:52
PROVIDERS: PCP Family Medicine; Visit Provider Family Medicine
DX: R39.9 Unspecified symptoms and signs involving the genitourinary system (principal)
CPT/HCPCS: 81001; 87086

== ENCOUNTER 2024-01-07 11:22 | Outpatient (OUT) | payer MEDICARE, SELFPAY ==
[2024-01-07 12:00] LABS: Estimated Average Glucose 82 mg/dL; Glycohemoglobin A1C 4.5 % (4.5-6.2)
[2024-01-07 12:07] LABS: Basophils Percent Auto 0.5 % (0.2-2.0); Eosinophils Absolute Auto 0.1 10^3/uL (0.0-0.7); Eosinophils Percent Auto 1.2 % (0.9-7.0); Hematocrit 29.1 % (36.0-48.0); Hemoglobin 9.2 g/dL (12.0-16.0); Immature Granulocytes Abs Auto 0.01 10^3/uL (0.00-0.03); Immature Granulocytes Pct Auto 0.2 % (0.0-0.5); Lymphocytes Absolute Auto 1.7 10^3/uL (1.2-3.8); Lymphocytes Percent Auto 27.4 % (20.5-60.0); Mean Corpuscular HGB Conc 31.6 g/dL (29.9-35.2); Mean Corpuscular Hemoglobin 28.3 pg (26.7-34.0); Mean Corpuscular Volume 89.5 fL (81.0-99.0); Mean Platelet Volume 8.4 fL (9.5-13.5); Monocytes Absolute Auto 0.7 10^3/uL (0.3-0.8); Monocytes Percent Auto 11.3 % (1.7-12.0); Neutrophils Absolute Auto 3.6 10^3/uL (1.4-6.5); Neutrophils Percent Auto 59.4 % (43.0-75.0); Platelet Count 327 10^3/uL (150-450); Red Blood Count 3.25 10^6/uL (4.20-5.40)
[2024-01-07 12:26] LABS: Bilirubin Urine NEGATIVE (NEGATIVE); Blood Urine NEGATIVE (NEGATIVE); Clarity Urine CLEAR (CLEAR); Color Urine LT. YELLOW (YELLOW); Glucose Urine UA NEGATIVE (NEGATIVE); Ketones Urine NEGATIVE (NEGATIVE); Leukocyte Esterase Urine NEGATIVE (NEGATIVE); Nitrite Urine NEGATIVE (NEGATIVE); Protein Urine NEGATIVE (NEG/TRACE); Specific Gravity Urine 1.015 (1.005-1.025); pH Urine 6.5 (5.0-9.0)
[2024-01-07 12:31] LABS: Alanine Aminotransferase 21 U/L (14-59); Albumin Globulin Ratio 0.8; Albumin Level 2.7 g/dL (3.4-5.0); Alkaline Phosphatase 92 U/L (46-116); Anion Gap 8.7; Aspartate Amino Transferase 36 U/L (15-37); BUN Creatinine Ratio 18.3; Bilirubin Total 0.6 mg/dL (0.2-1.0); Calcium 8.1 mg/dL (8.5-10.1); Carbon Dioxide 29.2 mmol/L (21.0-32.0); Chloride 107 mmol/L (98-107); Chol HDL Ratio 2.1; Cholesterol 116 mg/dL (<=200); Estimated GFR (African America 55 (>=60); Estimated GFR (Non-African Ame 45 (>=60); Free T3 1.87 pg/mL (2.18-3.98); Globulin 3.2 g/dL; Glucose 94 mg/dL (74-106); HDL Cholesterol 56 mg/dL (40-60); LDL Cholesterol Calculated 46.4 mg/dL; Potassium 3.9 mmol/L (3.5-5.1); Sodium 141 mmol/L (136-145); Thyroid Stimulating Hormone 0.111 uIU/mL (0.358-3.740); Total Protein 5.9 g/dL (6.4-8.2); Triglycerides 68 mg/dL (<=150); Troponin I High Sensitivity 20.3 pg/mL (4.0-51.3); VLDL CHOLESTEROL 13.6 mg/dL
[2024-01-07 12:41] LABS: Bacteria Urine TRACE #/HPF (NONE SEEN); Cast Seen? NONE SEEN #/LPF (NONE SEEN); Crystals Seen? None Seen #/HPF (None Seen); Mucus Urine TRACE (NONE SEEN); RBC Urine NONE SEEN #/HPF (0-2); Squamous Epithelial Cell Urine RARE #/LPF (NONE/RARE); WBC Urine 0-2 #/HPF (NONE SEEN)
[2024-01-07 12:42] LABS: Urine Culture Indicated ALREADY ORDERED
[2024-01-08 05:08] LABS: Insulin 3.7 uIU/mL (2.6-24.9)
== END 2024-01-07 11:23 | disposition home or self-care (01) ==
LOC: LAB 11:25
PROVIDERS: PCP Family Medicine; Visit Provider Family Medicine
DX: R53.83 Other fatigue (principal); F41.9 Anxiety disorder, unspecified; E53.8 Deficiency of other specified B group vitamins; E11.9 Type 2 diabetes mellitus without complications; E03.9 Hypothyroidism, unspecified; R60.9 Edema, unspecified; E78.5 Hyperlipidemia, unspecified; D64.9 Anemia, unspecified; I50.30 Unspecified diastolic (congestive) heart failure; I11.0 Hypertensive heart disease with heart failure
CPT/HCPCS: 36415; 80053; 80061; 81001; 82306; 83036; 83525; 83540; 83880; 84436; 84443; 84481; 84484; 85025; 87086

== ENCOUNTER 2024-01-31 09:48 | Outpatient (OUT) | payer MEDICARE, SELFPAY ==
--- OUTSIDE RECORDS SUMMARY | 2024-01-31 09:54 | XMS_ITS | CCD ---
Author Organization [facility] CliniSyil Care Team Providers Care Traffic Sign Supervisor Name Role Phone Marisel Gibbs Primary Care Provider CHANEL FUENTES Referring Unavailable MARISEL GIBBS Primary Care Unavailable CHANEL FUENTES Referring Unavailable MARISEL GIBBS Primary Care Unavailable AMBIKA PANDA Attending Unavailable MIKIY ., DR JOINER Primary Care Unavailable AMBIKA PANDA Consulting Unavailable AMBIKA PANDA Admitting Unavailable MARCIA RIVAS Attending Unavailable ARSEN ., DR JOINER Primary Care Unavailable LUIS, DR CHAZ Bautista Consulting Unavailabl e MARCIA RIVAS Admitting Unavailable MARCIA RIVAS Consulting Unavailable CATHRYN OATES Consulting Unavailable LUIS, DR CHAZ Bautista Admitting Unavailabl e REINECK, DR CHAZ Bautista Attending Unavailabl e HOY ., DR JOINER Primary Care Unavailable LUIS, DR CHAZ Bautista Consulting Unavailabl e HOY ., DR JOINER Admitting Unavailable HOY ., DR JOINER Primary Care Unavailable HOY ., DR JOINER Attending Unavailable HOY ., DR JOINER Consulting Unavailable HOY ., DR JOINER Primary Care Unavailable HOY ., DR JOINER Admseveriano Unavailable HOY ., DR JOINER Attending Unavailable ZIMONIE, DR SURYA Uribe Consulting Unavailable HOY ., DR JOINER Consulting Unavailable HOY ., DR JOINER Primary Care Unavailable HOY ., DR JOINER Attending Unavailable HOY ., DR JOINER Admseveriano Unavailable NETTA, DR LONNY Reyez Consulting Unavailable HOY ., DR JOINER Primary Care Unavailable HOY ., DR JOINER Attending Unavailable HOY ., DR JOINER Admitting Unavailable HOY ., DR JOINER Consulting Unavailable NETTA, DR LONNY Reyez Consulting Unavailable MIKIY ., DR JOINER Primary Care Unavailable HOY ., DR JOINER Attending Unavailable HOY ., DR JOINER Admitting Unavailable HOY ., DR JOINER Consulting Unavailable WEST, DR LONNY Reyez Consulting Unavailable HOY ., DR JOINER Primary Care Unavailable HOY ., DR JOINER Attending Unavailable ARSEN ., DR JOINER Admitting Unavailable ARSEN Mane, DR JOINER Consulting Unavailable DR MARISEL MENDEZ Primary Care Unavailable ARSEN Mane, DR JOINER Admitting Unavailable ARSEN ., DR JOINER Attending Unavailable ARSEN ., DR JOINER Consulting Unavailable DR SURYA MONTEMAYOR Consulting Unavailable Allergies Allergy Classification Reported Allergen(s) Allergy Type Date of Onset Reaction(s) Facility Cephalosporins (antibiotic) (1 source) cefTRIAXone Drug Allergy 0 [facility] Diclofenac / miSOPROStol (1 source) Diclofenac / miSOPROStol Drug Allergy 0 [facility] Penicillins (antibiotic) (1 source) Penicillins Drug Allergy 2 [facility] (1 source) cefTRIAXone Drug Allergy 0 [place] (1 source) Diclofenac / miSOPROStol Drug Allergy 0 [place] (1 source) Penicillins Propensity to adverse reactions to drug 2 [place], [place] (2 sources) Iodides Propensity to adverse reactions to drug 0 [place] (2 sources) cefTRIAXone Drug Allergy 5 [facility] (1 source) Diclofenac / miSOPROStol Drug Allergy 3 [facility] (2 sources) Iodine (And Iodine Containting Drugs) Drug allergy (disorder) 4 [facility] (2 sources) Penicillin Drug Allergy [facility] Medications Current Medications Medication Drug Class(es) Dates Sig (Normalized) Sig (Original) aspirin 81 mg oral tablet (2 sources) Platelet Aggregation Inhibitor, Nonsteroidal Anti-inflammatory Drug take 1 tablet by mouth once daily aspirin 81 MG tablet Take 81 mg by mouth daily. 0 Active hyoscyamine sulfate 0.125 mg oral tablet (2 sources) take 1 tablet by mouth every four hours as needed hyoscyamine (ANASPAZ;LEVSIN) 125 MCG tablet Take 125 mcg by mouth every 4 hours as needed for Cramping 0 Active levothyroxine sodium 0.15 mg oral tablet (2 sources) l-Thyroxine levothyroxine (SYNTHROID) 150 MCG tablet Take 112 mcg by mouth Daily 0 Active lisinopril 10 mg oral tablet (2 sources) Angiotensin Converting Enzyme Inhibitor take 1 tablet by mouth once daily lisinopril (PRINIVIL;ZESTRIL) 10 MG tablet Take 10 mg by mouth daily. 0 Active simvastatin 40 mg oral tablet (2 sources) HMG-CoA Reductase Inhibitor take 1 tablet by mouth once daily simvastatin (ZOCOR) 40 MG tablet Take 40 mg by mouth nightly. 0 Active traMADol hydrochloride 50 mg oral tablet (2 sources) Opioid Agonist take 50 mg by mouth every six hours as needed TRAMADOL HCL Take 50 mg by mouth every 6 hours as needed. 0 Active WHEAT DEXTRIN (2 sources) take 1 tablet by mouth once daily Wheat Dextrin (BENEFIBER) TABS Take by mouth daily. 0 Active Completed/Discontinued Medications Medication Drug Class(es) Dates Sig (Normalized) Sig (Original) dicyclomine hydrochloride 20 mg oral tablet (1 source) Anticholinergic End: 05-19-2020 take 1 tablet by mouth every six hours dicyclomine (BENTYL) 20 MG tablet Take 20 mg by mouth every 6 hours. 0 05/19/2020 Discontinued (Therapy completed) omeprazole 20 mg delayed release oral capsule (1 source) Proton Pump Inhibitor End: 05-19-2020 take 1 capsule by mouth once daily omeprazole (PRILOSEC) 20 MG capsule Take 20 mg by mouth daily. 0 05/19/2020 Discontinued (Therapy completed) silver sulfADIAZINE 10 mg/ml topical cream (1 source) Sulfonamide Antibacterial End: 05-19-2020 silver sulfADIAZINE (SILVADENE) 1 % cream Apply topically daily. Apply topically daily. 0 05/19/2020 Discontinued (Therapy completed) Vitamin B 12 (1 source) Vitamin B12 End: 05-19-2020 Cyanocobalamin (VITAMIN B-12 IJ) Inject as directed every 30 days. 0 05/19/2020 Discontinued (Therapy completed) Problems Active Problems Problem Classification Problem Date Documented Da te Episodic/Chronic Blindness and vision defects (1 source) Unspecified visual loss; Translations: [UNSPECIFIED VISUAL LOSS] Onset: 06-05-2022 Chronic Cancer of breast (2 sources) Malignant neoplasm of upper-outer quadrant of female breast; Translations: [Malignant neoplasm of upper-outer quadrant of unspecified female breast] Onset: 05-13-2012 05-13-2012 Chronic Congestive heart failure; nonhypertensive (1 source) Unspecified diastolic (congestive) heart failure; Translations: [UNSPECIFIED DIASTOLIC HEART FAILURE] Onset: 09-04-2022 Chronic Deficiency and other anemia (1 source) Anemia, unspecified; Translations: [ANEMIA UNSPECIFIED] Onset: 09-04-2022 Episodic Diabetes mellitus without complication (1 source) Other abnormal glucose; Translations: [OTHER ABNORMAL GLUCOSE] Onset: 09-04-2022 Episodic Disorders of lipid metabolism (2 sources) Hyperlipidemia, unspecified; Translations: [Pure hypercholesterolemia , unspecified] Onset: 06-05-2022 Chronic Essential hypertension (1 source) Essential (primary) hypertension; Translations: [ESSENTIAL PRIMARY HYPERTENSION] Onset: 06-05-2022 Chronic Hypertension with complications and secondary hypertension (1 source) Hypertensive heart disease with heart failure; Translations: [HTN HEART DISEASE W/HEART FAIL] Onset: 09-04-2022 Chronic Malaise and fatigue (4 sources) Other fatigue; Translations: [OTHER FATIGUE] Onset: 09-27-2022 Episodic Nonspecific chest pain (1 source) Chest pain, unspecified; Translations: [CHEST PAIN UNSPECIFIED] Onset: 10-05-2022 Episodic Osteoarthritis (1 source) Unspecified osteoarthritis, unspecified site; Translations: [UNSPECIFIED OSTEOARTHRITIS UNS SITE] Onset: 06-05-2022 Chronic Other acquired deformities (1 source) Deforming dorsopathy, unspecified; Translations: [DEFORMING DORSOPATHY UNSPECIFIED] Onset: 10-20-2022 Episodic Other lower respiratory disease (4 sources) Shortness of breath; Translations: [SHORTNESS OF BREATH] Onset: 09-14-2022 Episodic Other screening for suspected conditions (not mental disorders or infectious disease) (1 source) Encounter for screening mammogram for malignant neoplasm of breast; Translations: [ENC SCR MAMMO MALIG NEOPLASM BREAST] Onset: 09-18-2022 Episodic Residual codes; unclassified (1 source) Family history of malignant neoplasm of breast; Translations: [FAMILY HX MALIG NEOPLASM OF BREAST] Onset: 09-18-2022 Episodic Residual codes; unclassified (1 source) Family history of malignant neoplasm of digestive organs; Translations: [FAM HX MALIG NEOPLASM DIGESTIV ORGN] Onset: 09-18-2022 Episodic Spondylosis; intervertebral disc disorders; other back problems (1 source) Spondylosis without myelopathy or radiculopathy, cervical region; Translations: [SPONDYLS W/O MYELO-/RADICULOP CERV] Onset: 03-26-2022 Chronic Spondylosis; intervertebral disc disorders; other back problems (8 sources) Cervical disc disorder at C4-C5 level with radiculopathy; Translations: [Cervicalgia] Onset: 03-22-2022 Episodic Thyroid disorders (2 sources) Thyrotoxicosis with diffuse goiter without thyrotoxic crisis or storm; Translations: [Hypothyroidism, unspecified] Onset: 06-05-2022 Chronic Past or Other Problems Problem Classification Problem Date Documented Da te Episodic/Chronic Abdominal pain (4 sources) Right lower quadrant pain; Translations: [RIGHT LOWER QUADRANT PAIN] Onset: 05-07-2022 Episodic Allergic reactions (4 sources) Urticaria, unspecified; Translations: [Allergic urticaria] Onset: 01-03-2022 Episodic Cancer of breast (1 source) Personal history of malignant neoplasm of breast; Translations: [PERS HX MALIGNANT NEOPLASM BREAST] Onset: 06-05-2022 Episodic Genitourinary symptoms and ill-defined conditions (1 source) Personal history of urinary (tract) infections; Translations: [PERS HX URINARY TRACT INFECTIONS] Onset: 06-05-2022 Episodic Nausea and vomiting (4 sources) Nausea with vomiting, unspecified; Translations: [NAUSEA WITH VOMITING UNSPECIFIED] Onset: 06-01-2022 Episodic Other aftercare (1 source) supervisor intermediates (current) use of aspirin; Translations: [GROUP HOME CURRENT USE OF ASPIRIN] Onset: 06-05-2022 Episodic Other aftercare (1 source) Other watermelon inspector (current) drug therapy; Translations: [OTH GROUP HOME CURRENT DRUG THERAPY] Onset: 06-05-2022 Episodic Other non-epithelial cancer of skin (1 source) Personal history of other malignant neoplasm of skin; Translations: [PERSONAL HX OTH MALIG NEOPLASM SKIN] Onset: 06-05-2022 Episodic Residual codes; unclassified (1 source) Acquired absence of both cervix and uterus; Translations: [ACQUIRED ABSENCE BOTH CERVIX AND UTERUS] Onset: 06-05-2022 Episodic Residual codes; unclassified (1 source) Acquired absence of other specified parts of digestive tract; Translations: [ACQ ABSENCE OTH PART DIGESTV TRACT] Onset: 06-05-2022 Episodic Urinary tract infections (1 source) Urinary tract infection, site not specified; Translations: [UTI SITE NOT SPECIFIED] Onset: 05-09-2022 Episodic Results Test Name Value Interpretation Reference Range Facility XR CSPINE MIN 4 VIEWSon 03 XR CSPINE MIN 4 VIEWS EXAMINATION: XR CSPINE MIN 4 VIEWS HISTORY: Deformity of spine COMPARISON: No relevant comparison available. FINDINGS: BONES: Reversal of normal cervical lordosis. 3 mm anterolisthesis of C2 on C3 and C3 on C4. Right-sided fusion hardware C3-C7. Moderate to severe degenerative spondylosis and facet osteoarthropathy DISC SPACES: Moderate to severe multilevel disc space narrowing with endplate sclerosis PARASPINOUS: Negative. No paraspinous abnormality is seen. OTHER: Negative. IMPRESSION: Stable moderate to severe degenerative changes with reversal of cervical lordosis and multilevel spondylolisthesis Electronically authenticated by: LONNY CHADWICK Date: 2022-10-13 07:34 Normal [facility] XR SACRUM_COCCYXon XR SACRUM_COCCYX EXAMINATION: XR LSPINE MIN 4 VIEWS, XR SACRUM_COCCYX HISTORY: Deformity of spine COMPARISON: 03/21/2018 FINDINGS: BONES: Stable anterior wedge compression fractures of L2-L3 and L5. Stable 4 mm retrolisthesis of L3 on L4. Mild to moderate degenerative spondylosis. Moderate to severe facet osteoarthropathy. DISC SPACES: Multilevel disc space narrowing with endplate sclerosis. PARASPINOUS: Negative. No paraspinous abnormality is seen. OTHER: Extensive vascular calcifications IMPRESSION: Moderate to severe diffuse degenerative changes Electronically authenticated by: LONNY CHADWICK Date: 2022-10-12 13:18 Normal [facility] NM STRESS/REST MULTIon 09-27 NM STRESS/REST MULTI Patient: JERRY FINNEY Exam Date: 09/27/2022 : 1945 Gender:F Ordering : DR MARISEL GIBBS . Admission #: [id number] Family : Order #: [id number] CLICK HERE TO VIEW EXAM RADIOLOGY REPORT PROCEDURE: RADIONUCLIDE IMAGING STRESS/REST MULTI COMPARISON: NM STRESS/REST MULTI, 06/02/2020. NM STRESS/REST MULTI, 12/25/2018. INDICATIONS: Chest pain TECHNIQUE: Exam Description: Stress/Rest one day protocol gated SPECT Rest Imagin.9 mCi Tc-99m Cardiolite IV on 09/27/2022 Stress Imaging 29.2 mCi Tc-99m Cardiolite IV on 09/27/2022 Exercise Protocol: 0.4 mg Lexiscan given IV Heart Rate (bpm): Rest: 56 Max: 90 PMHR: 63 Blood Pressure: Rest: 122/78 Max: 138/80 Symptoms: Rest and peak stress ECG findings were normal and the exercise portion of the study was normal per attending physician Dr. Burnett . For more details please see separate cardiac stress test report. FINDINGS: QUALITY OF STUDY: Good. PERFUSION DEFECT: LOCATION: Mobile. SIZE: Small (1-2 segments). SEVERITY: Mild. TYPE: Persistent. WALL MOTION: Normal. LV SIZE: Normal. 50 mL. TID / TCD: None; 0.7 LVEF: Normal. Calculated EF 81%. SUMMARY: Myocardial perfusion imaging study is NORMAL. CONCLUSION: 1. Decreased apical activity, stable on rest and stress images, I favor apical thinning 2. No reversible ischemia 3. Normal exercise test Dictated by: Lonny Chadwick MD on 09/28/2022 at 09:12 Approved by: Lonny Chadwick MD on 09/28/2022 at 09:20 Normal [facility] ECHOCARDIO M/2D COMPLETEon 0 09-14-2022 ECHOCARDIO M/2D COMPLETE Patient: JERRY FINNEY Exam Date: 09/14/2022 : 1945 Gender:F Ordering : DR MARISEL GIBBS . Admission #: [id number] Family : Order #: [id number] CLICK HERE TO VIEW EXAM ECHOCARDIOGRAM REPORT PROCEDURE: CARDIO PULMONARY ECHOCARDIO M/2D COMP INDICATIONS: Chest pain COMPARISON: None. DESCRIPTION: COMPLETE ECHOCARDIOGRAM Real-time transthoracic echocardiography with 2D, M-mode, spectral and color flow Doppler performed. QUALITY: Technically difficult due to patients condition. LEFT VENTRICLE: Normal chamber size. Mild concentric left ventricular hypertrophy. Normal systolic function. LV EF: Normal left ventricular ejection fraction, (>55%). DIASTOLIC: Diastolic function is indeterminate. ATRIAL SEPTUM: LEFT ATRIUM: Mild dilatation. RIGHT ATRIUM: Normal chamber size. RIGHT VENTRICLE: Normal chamber size. Normal right ventricular systolic function. TRICUSPID VALVE: Normal mobility and thickness. No stenosis with no regurgitation. Unable to assess right sided pressures due to lack of measurable tricuspid regurgitation. MITRAL VALVE: Normal mobility and thickness. No evidence of mitral valve stenosis. There is no mitral annular calcification. No mitral regurgitation. AORTIC VALVE: Normal trileaflet appearance. No visible sclerosis. Normal leaflet mobility. No evidence of aortic valve stenosis. No aortic regurgitation. AORTIC ROOT: Normal diameter and appearance. PULMONIC VALVE: Normal thickness and mobility. No stenosis. Trivial regurgitation. PERICARDIUM: No evidence of pericardial effusion. Fat pad is seen. IVC: Collapses with inspirations. IVC is normal in size. PLEURA: CONCLUSION: 1. Mild concentric left ventricular hypertrophy with normal systolic function. LVEF is 55-60%. 2. Normal right ventricular size and systolic function. 3. No significant valvular dysfunction. 4. No pericardial effusion. Adult Echocardiography Procedure Report Left Ventricle LVEDD (3.7 - 5.6 cm): 4.78 cm LVESD (2.2 - 4.0 cm): 3.06 cm LVIVS thickness (0.6 - 1.2 cm): 1.14 cm LVPW thickness (0.5 - 1.0 cm): 1.09 cm e': 0.09 m/s E - e': 6.40 LVOT Max Gradient: 1.91 mm[Hg] Peak Velocity (LVOT): 0.69 m/s LVOT Diameter 2.19 cm Left Ventricular Ejection Fraction: 55-60 % Left Atrium Left Atrium Systolic Dimension: 4.16 cm Mitral Valve MV E to A Ratio: 0.71 Mitral Valve A-Wave Peak Velocity: 0.80 m/s Mitral Valve E-Wave Peak Velocity: 0.57 m/s Right Ventricle Aorta AO Root Diam: 3.02 cm Aortic Valve AoV Area (Peak Weston): 2.40 cm2, 2.40 cm2 Peak Velocity(Antegrade Flow): 1.08 m/s Peak Gradient(Antegrade Flow): 4.68 mm[Hg] Tricuspid Valve Peak Velocity: 0.52 m/s Pulmonic Valve Peak Velocity: 0.96 m/s, 0.83 m/s Peak Gradient: 3.67 mm[Hg], 2.75 mm[Hg] Right Atrium Dictated by: Connor Klein M.D. on 09/14/2022 at 14:46 Approved by: Connor Klein M.D. on 09/14/2022 at 14:51 Normal [facility] MG MAMM SCREEN 3D MONCHO CADon 09-14-2022 MG MAMM SCREEN 3D MONCHO CAD Patient: JERRY FINNEY Exam Date: 09/14/2022 : 1945 Gender:F Ordering : DR MARISEL GIBBS . Admission #: [id number] Family : Order #: [id number] CLICK HERE TO VIEW EXAM RADIOLOGY REPORT PROCEDURE: MAMMOGRAM SCREENING 3D BILATERAL CAD COMPARISON: MG MAMM SCREEN 3D MONCHO CAD, 05/10/2021. MG MAMM SCREEN MONCHO W CAD, 01/30/2020. INDICATIONS: Screening mammography Calculator Name NCI Breast Cancer Risk Assessment Tool 5 Year Breast Cancer Risk n/a% Lifetime Breast Cancer Risk n/a% Personal Breast Cancer Yes, 65, left Personal Ovarian Cancer No Treatments None Family Cancers Mother with pancreas cancer at age 59; Sister with breast cancer at age 65; Aunt-maternal with breast cancer at age 70; Cousin-maternal with breast cancer at age 65. LOCATION: [facility] BREAST COMPOSITION: Heterogeneously dense,which may obscure small masses. FINDINGS: DIAGNOSTIC CATEGORY 2--BENIGN FINDING. NO CHANGE FROM COMPARISON. Scattered benign-appearing nodules are present. Scattered benign-appearing calcifications are present. Scattered benign-appearing lymph nodes are present. RIGHT BREAST: No significant suspicious finding. LEFT BREAST: No significant suspicious finding. Linear scar marker upper quadrant. Coarse calcifications 12 o'clock posterior breast RECOMMENDATIONS: ROUTINE MAMMOGRAM AND CLINICAL EVALUATION IN 12 MONTHS. PLEASE NOTE: A NORMAL MAMMOGRAM DOES NOT EXCLUDE THE POSSIBILITY OF BREAST CANCER. A CLINICALLY SUSPICIOUS PALPABLE LUMP SHOULD BE BIOPSIED. Dictated by: Lonny Chadwick MD on 09/14/2022 at 12:02 Approved by: Lonny Chadwick MD on 09/14/2022 at 12:04 Normal [facility] BNPon 08-30-2022 Natriuretic peptide B (Bld) [Mass/Vol] 284.0 pg/mL Normal <=1,800.0 [facility] Comment on above: Performed By: #### L IPID, CMP, BNP, TSH, T7 #### [facility] [address] [address] [address] Rito Madison CBC AUTO DIFFon 08-30-2022 BASO # 0.0 103/ul Normal 0.0-0.1 [facility] Comment on above: Performed By: #### C BC ####[facility] [address] [id number]. Rito Madison Basophils/100 WBC (Bld) 0.4 % Normal 0.2-2.0 [facility] Comment on above: Performed By: #### C BC ####[facility] [address] [id number]. Rito Madison EO # 0.1 103/ul Normal 0.0-0.7 [facility] Comment on above: Performed By: #### C BC ####[facility] [address] [address]Dr. Rito Madison Eosinophils/100 WBC (Bld) 1.3 % Normal 0.9-7.0 [facility] Comment on above: Performed By: #### C BC ####[facility] [address] [place], [place] [address]Dr. Rito Madison Erythrocyte distribution width (RBC) [Ratio] 14.5 % Normal 11.0-15.0 [facility] Comment on above: Performed By: #### C BC ####[facility] [address] [place], [place] [address]Dr. Rito Madison Hematocrit (Bld) [Volume fraction] 43.7 % Normal 36.0-48.0 [facility] Comment on above: Performed By: #### C BC ####[facility] [address] [place], [place] [address]Dr. Rito Madison Hemoglobin (Bld) [Mass/Vol] 14.2 g/dL Normal 12.0-16.0 [facility] Comment on above: Performed By: #### C BC ####[facility] [address] [address]Dr. Rito Madison IG # 0.02 10e3/ul Normal 0.00-0.03 [facility] Comment on above: Performed By: #### C BC ####[facility] [address] [place], [place] [address]Dr. Rito Madison IG % 0.3 % Normal 0.0-0.5 [facility] Comment on above: Performed By: #### C BC ####[facility] [address] [id number]. Rito Madison LYMPH # 1.8 103/ul Normal 1.2-3.8 [facility] Comment on above: Performed By: #### C BC ####[facility] [address] [id number]. Rito Madison Lymphocytes/100 WBC (Bld) 22.9 % Normal 20.5-60.0 [facility] Comment on above: Performed By: #### C BC ####[facility] [address] [id number]. Rito Los MANUAL DIFF REQ NO Normal [facility] Comment on above: Performed By: #### C BC ####[facility] [address] [address]Dr. Rito Los MCH (RBC) [Entitic mass] 28.7 pg Normal 26.7-34.0 [facility] Comment on above: Performed By: #### C BC ####[facility] [address] [address]Dr. Rito Madison MCHC (RBC) [Mass/Vol] 32.5 g/dL Normal 29.9-35.2 [facility] Comment on above: Performed By: #### C BC ####[facility] [address] [id number]. Rito Los MCV (RBC) [Entitic vol] 88.5 fL Normal 81.0-99.0 [facility] Comment on above: Performed By: #### C BC ####[facility] [address] [id number]. Rito Los MONO # 0.5 103/ul Normal 0.3-0.8 [facility] Comment on above: Performed By: #### C BC ####[facility] [address] [address]Dr. Rito Los Monocytes/100 WBC (Bld) 6.4 % Normal 1.7-12.0 [facility] Comment on above: Performed By: #### C BC ####[facility] [address] [place], [place] [address]Wz. Rito Madison NEUT # 5.4 103/ul Normal 1.4-6.5 [facility] Comment on above: Performed By: #### C BC ####[facility] [address] [id number]. Rito Los Neutrophils/100 WBC (Bld) 68.7 % Normal 43.0-75.0 [facility] Comment on above: Performed By: #### C BC ####[facility] [address] [id number]. Rito Madison Platelet mean volume (Bld) [Entitic vol] 8.2 fL Critically low 9.5-13.5 [facility] Comment on above: Performed By: #### C BC ####[facility] [address] [id number]. Rito Madison PLT 238 103/ul Normal 150-450 [facility] Comment on above: Performed By: #### C BC ####[facility] [address] [id number]. Yolyjayda Madison RBC 4.94 106/ul Normal 4.20-5.40 [facility] Comment on above: Performed By: #### C BC ####[facility] [address] [id number]. Rito Los WBC 7.8 103/ul Normal 4.0-11.0 [facility] Comment on above: Performed By: #### C BC ####[facility] [address] [id number] Yolyjayda Madison FREE THYROXINE INDEX T7on FTI 2.88 Normal 1.30-4.50 [facility] Comment on above: Performed By: #### L IPID, CMP, BNP, TSH, T7 #### [facility] [address] [place], [place] [address] Dr. Rito Madison T3U 36.0 % Normal 30.0-39.0 [facility] Comment on above: Performed By: #### L IPID, CMP, BNP, TSH, T7 #### [facility] [address] [address] [address] Rito Madison T4 [Mass/Vol] 8.00 ug/dL Normal 4.80-13.90 [facility] Comment on above: Performed By: #### L IPID, CMP, BNP, TSH, T7 #### [facility] [address] [address] [address] Rito aMdison GLYCOHEMOGLOBIN A1Con 2022 ADA RECOMMENDATION SEE BELOW Normal [facility] Comment on above: Result Comment: ADA RECOMMENDED LIMIT 4.0 - 6.0 ADA THERAPEUTIC TARGET < 7.0 ACTION SUGGESTED > 7.0 Performed By: #### A 1C #### [facility] [address] [place] [address] Dr. Rito Madison Glucose [Mass/Vol] 111 mg/dL Normal [facility] Comment on above: Performed By: #### A 1C #### [facility] [address] [place] [address] Dr. Rito Madison HbA1c (Bld) [Mass fraction] 5.5 % Normal 4.5-6.2 [facility] [facility] Comment on above: Performed By: #### A 1C #### [facility] [address] [place] [address] Dr. Rito Madison IRONon 08-30-2022 Iron [Mass/Vol] 125.0 ug/dL Normal 50.0-170.0 [facility] Comment on above: Performed By: #### I VINAYAK ####[facility] [address] [address]Dr. Rito Madison LIPID PROFILEon 08-30-2022 CHOL-HDL RATIO NORM SEE BELOW Normal [facility] Comment on above: Result Comment: 3.3 - 4.4 LOW RISK 4.4 - 7.1 AVERAGE RISK 7.1 - 11.0 MODERATE RISK >11.0 HIGH RISK Performed By: #### L IPID, CMP, BNP, TSH, T7 #### [facility] [address] [address] [address] Rito Madison Cholesterol [Mass/Vol] 203 mg/dL Critically high <=200 [facility] Comment on above: Performed By: #### L IPID, CMP, BNP, TSH, T7 #### [facility] [address] [address] [address] Rito Madison Cholesterol in HDL [Mass/Vol] 79 mg/dL Critically high 40-60 [facility] Comment on above: Performed By: #### L IPID, CMP, BNP, TSH, T7 #### [facility] [address] [address] [address] Rito Madison Cholesterol in LDL [Mass/Vol] 108.6 mg/dL Normal [facility] Comment on above: Performed By: #### L IPID, CMP, BNP, TSH, T7 #### [facility] [address] [place] [address] Dr. Rito Madison Cholesterol.total/Vivian sterol in HDL [Mass ratio] 2.6 {ratio} Normal [facility] Comment on above: Performed By: #### L IPID, CMP, BNP, TSH, T7 #### [facility] [address] [address] [address] Rito Madison HDL NORMAL > or = 60 mg/dl - LO W CARDIOVASCULAR RISK <40 mg/dl - HIGH CARDIOVASCULAR RISK Normal [facility] Comment on above: Performed By: #### L IPID, CMP, BNP, TSH, T7 #### [facility] [address] [address] [address] Rito Madison LDL CALC NORMAL SEE BELOW Normal [facility] Comment on above: Result Comment: <100 mg/dl OPTIMAL 100 - 129 mg/dl NEAR OR ABOVE OPTIMAL 130 - 159 mg/dl BORDERLINE HIGH 160 - 189 mg/dl HIGH >190 mg/dl VERY HIGH Performed By: #### L IPID, CMP, BNP, TSH, T7 #### [facility] [address] [address] [address] Rito Madison Triglyceride [Mass/Vol] 77 mg/dL Normal <=150 T [facility] Comment on above: Performed By: #### L IPID, CMP, BNP, TSH, T7 #### [facility] [address] [address] [address] Rito Madison VLDL CALC 15.4 mg/dL Normal [facility] Comment on above: Performed By: #### L IPID, CMP, BNP, TSH, T7 #### [facility] [address] [place] [address] Dr. Rito Madison PROF 14(COMP METB)on 023 Albumin [Mass/Vol] 3.6 g/dL Normal 3.4-5.0 [facility] Comment on above: Performed By: #### L IPID, CMP, BNP, TSH, T7 #### [facility] [address] [place] [address] Dr. Rito Madison Albumin/Globulin [Mass ratio] 1.0 {ratio} Normal [facility] Comment on above: Performed By: #### L IPID, CMP, BNP, TSH, T7 #### [facility] [address] [place] [address] Dr. Rito Madison ALP [Catalytic activity/Vol] 81 U/L Normal 46-116 [facility] Comment on above: Performed By: #### L IPID, CMP, BNP, TSH, T7 #### [facility] [address] [place] [address] Dr. Rito Madison ALT [Catalytic activity/Vol] 49 U/L Normal 14-59 [facility] Comment on above: Performed By: #### L IPID, CMP, BNP, TSH, T7 #### [facility] [address] [place] [address] Dr. Rito Madison Anion gap [Moles/Vol] 12.6 mmol/L Normal [facility] Comment on above: Performed By: #### L IPID, CMP, BNP, TSH, T7 #### [facility] [address] [place] [address] Dr. Rito Madison AST [Catalytic activity/Vol] 32 U/L Normal 15-37 [facility] Comment on above: Performed By: #### L IPID, CMP, BNP, TSH, T7 #### [facility] [address] [place] [address] Dr. Rito Madison Bilirubin [Mass/Vol] 0.7 mg/dL Normal 0.2-1.0 [facility] Comment on above: Performed By: #### L IPID, CMP, BNP, TSH, T7 #### [facility] [address] [place] [address] Dr. Rito Madison Calcium [Mass/Vol] 9.3 mg/dL Normal 8.5-10.1 [facility] Comment on above: Performed By: #### L IPID, CMP, BNP, TSH, T7 #### [facility] [address] [place] [address] Dr. Rito Madison Chloride [Moles/Vol] 103 mmol/L Normal 98-107 [facility] Comment on above: Performed By: #### L IPID, CMP, BNP, TSH, T7 #### [facility] [address] [place] [address] Dr. Rito Madison CO2 [Moles/Vol] 29.5 mmol/L Normal 21.0-32.0 [facility] Comment on above: Performed By: #### L IPID, CMP, BNP, TSH, T7 #### [facility] [address] [place] [address] Dr. Rito Madison Creatinine [Mass/Vol] 0.79 mg/dL Normal 0.55-1.02 [facility] Comment on above: Performed By: #### L IPID, CMP, BNP, TSH, T7 #### [facility] [address] [place] [address] Dr. Rito Madison EGFR-AF [place]DEAN >60 Normal >=60 [facility] Comment on above: Performed By: #### L IPID, CMP, BNP, TSH, T7 #### [facility] [address] [place] [address] Dr. Rito Madison EGFR-NON AF [place] >60 Normal >=60 [facility] Comment on above: Performed By: #### L IPID, CMP, BNP, TSH, T7 #### [facility] [address] [place] [address] Dr. Rito Madison Globulin (S) [Mass/Vol] 3.6 g/dL Normal T [facility] Comment on above: Performed By: #### L IPID, CMP, BNP, TSH, T7 #### [facility] [address] [address] [address] Rito Madison Glucose [Mass/Vol] 88 mg/dL Normal 74-106 [facility] Comment on above: Performed By: #### L IPID, CMP, BNP, TSH, T7 #### [facility] [address] [place] [address] Dr. Rito Madison Potassium [Moles/Vol] 4.1 mmol/L Normal 3.5-5.1 [facility] Comment on above: Performed By: #### L IPID, CMP, BNP, TSH, T7 #### [facility] [address] [place] [address] Dr. Rito Madison Protein [Mass/Vol] 7.2 g/dL Normal 6.4-8.2 [facility] Comment on above: Performed By: #### L IPID, CMP, BNP, TSH, T7 #### [facility] [address] [place] [address] Dr. Rito Madison Sodium [Moles/Vol] 141 mmol/L Normal 136-145 [facility] Comment on above: Performed By: #### L IPID, CMP, BNP, TSH, T7 #### [facility] [address] [place] [address] Dr. Rito Madison Urea nitrogen [Mass/Vol] 17.0 mg/dL Normal 7.0-18.0 [facility] Comment on above: Performed By: #### L IPID, CMP, BNP, TSH, T7 #### [facility] [address] [place] [address] Dr. Rito Madison Urea nitrogen/Creatinine [Mass ratio] 21.5 mg/mg Normal [facility] Comment on above: Performed By: #### L IPID, CMP, BNP, TSH, T7 #### [facility] [address] [place] [address] Dr. Rito Madison TSHon 08-30-2022 TSH 4.464 uIU/mL Critically high 0.358-3.740 [facility] Comment on above: Performed By: #### L IPID, CMP, BNP, TSH, T7 #### [facility] [address] [place], [place] [address] Dr. Rito Madison CBC AUTO DIFFon 06-01-2022 BASO # 0.0 103/ul Normal 0.0-0.1 [facility] Comment on above: Performed By: #### C BC ####[facility] [address] [id number] Madison Basophils/100 WBC (Bld) 0.2 % Normal 0.2-2.0 [facility] Comment on above: Performed By: #### C BC ####[facility] [address] [place] [address]DrAntonietta Madison EO # 0.1 103/ul Normal 0.0-0.7 [facility] Comment on above: Performed By: #### C BC ####[facility] [address] [place] [address]DrAntonietta Madison Eosinophils/100 WBC (Bld) 1.5 % Normal 0.9-7.0 [facility] Comment on above: Performed By: #### C BC ####[facility] [address] [place] [address]DrAntonietta Madison Erythrocyte distribution width (RBC) [Ratio] 12.9 % Normal 11.0-15.0 [facility] Comment on above: Performed By: #### C BC ####[facility] [address] [place] [id number] Madison Hematocrit (Bld) [Volume fraction] 44.4 % Normal 36.0-48.0 [facility] Comment on above: Performed By: #### C BC ####[facility] [address] [place] [id number] [place] Hemoglobin (Bld) [Mass/Vol] 14.7 g/dL Normal 12.0-16.0 [facility] Comment on above: Performed By: #### C BC ####[facility] [address] [place] [address]DrAntonietta Madison IG # 0.03 10e3/ul Normal 0.00-0.03 [facility] Comment on above: Performed By: #### C BC ####[facility] [address] [place] [address]Dr. Rito Madison IG % 0.3 % Normal 0.0-0.5 [facility] Comment on above: Performed By: #### C BC ####[facility] [address] [place] [address]Dr. Yolyjayda Madison LYMPH # 1.7 103/ul Normal 1.2-3.8 [facility] Comment on above: Performed By: #### C BC ####[facility] [address] [place] [address]Dr. Yolyjayda Madison Lymphocytes/100 WBC (Bld) 19.5 % Critically low 20.5-60.0 [facility] Comment on above: Performed By: #### C BC ####[facility] [address] [place], [place] [address]Dr. Rito Madison MANUAL DIFF REQ NO Normal [facility] Comment on above: Performed By: #### C BC ####[facility] [address] [place], [place] [address]Dr. Yolyjayda Madison MCH (RBC) [Entitic mass] 28.3 pg Normal 26.7-34.0 [facility] Comment on above: Performed By: #### C BC ####[facility] [address] [place] [address]Dr. Yolyjayda Madison MCHC (RBC) [Mass/Vol] 33.1 g/dL Normal 29.9-35.2 [facility] Comment on above: Performed By: #### C BC ####[facility] [address] [place], [place] [address]Dr. Yolyjayda Madison MCV (RBC) [Entitic vol] 85.4 fL Normal 81.0-99.0 [facility] Comment on above: Performed By: #### C BC ####[facility] [address] [place], [place] [address]Dr. Rito Madison MONO # 0.7 103/ul Normal 0.3-0.8 [facility] Comment on above: Performed By: #### C BC ####[facility] [address] [place] [id number]. Rito Madison Monocytes/100 WBC (Bld) 8.3 % Normal 1.7-12.0 [facility] Comment on above: Performed By: #### C BC ####[facility] [address] [place] [phone]. Rito Madison NEUT # 6.3 103/ul Normal 1.4-6.5 [facility] Comment on above: Performed By: #### C BC ####[facility] [address] [place] [address]Dr. Rito Madison Neutrophils/100 WBC (Bld) 70.2 % Normal 43.0-75.0 [facility] Comment on above: Performed By: #### C BC ####[facility] [address] [place] [address]Dr. Rito Madison Platelet mean volume (Bld) [Entitic vol] 8.4 fL Critically low 9.5-13.5 [facility] Comment on above: Performed By: #### C BC ####[facility] [address] [place], [place] [address]Dr. Rito Madison PLT 295 103/ul Normal 150-450 [facility] Comment on above: Performed By: #### C BC ####[facility] [address] [place] [address]Dr. Rito Madison RBC 5.20 106/ul Normal 4.20-5.40 [facility] Comment on above: Performed By: #### C BC ####[facility] [address] [place] [phone]. Rito Madison WBC 8.9 103/ul Normal 4.0-11.0 [facility] Comment on above: Performed By: #### C BC ####[facility] [address] [place] [address]DrAntonietta Rito Madison PROF CHEM 8 (BAS METB)on Anion gap [Moles/Vol] 9.8 mmol/L Normal [facility] Comment on above: Performed By: #### B MP #### [facility] [address] [address] [address] Rito Madison Calcium [Mass/Vol] 9.2 mg/dL Normal 8.5-10.1 [facility] Comment on above: Performed By: #### B MP #### [facility] [address] [address] [address] Rito Madison Chloride [Moles/Vol] 103 mmol/L Normal 98-107 [facility] Comment on above: Performed By: #### B MP #### [facility] [address] [address] [address] Rito Madison CO2 [Moles/Vol] 25.8 mmol/L Normal 21.0-32.0 [facility] Comment on above: Performed By: #### B MP #### [facility] [address] [address] [address] Rito Madison Creatinine [Mass/Vol] 0.86 mg/dL Normal 0.55-1.02 [facility] Comment on above: Performed By: #### B MP #### [facility] [address] [address] [address] Rito Madison EGFR-AF [place] >60 Normal >=60 [facility] Comment on above: Performed By: #### B MP #### [facility] [address] [address] [address] Rito Madison EGFR-NON AF [place] >60 Normal >=60 [facility] Comment on above: Performed By: #### B MP #### [facility] [address] [address] [address] Rito Madison Glucose [Mass/Vol] 109 mg/dL Critically high 74-106 [facility] Comment on above: Performed By: #### B MP #### [facility] [address] [address] [address] Rito Madison Potassium [Moles/Vol] 3.6 mmol/L Normal 3.5-5.1 [facility] Comment on above: Performed By: #### B MP #### [facility] [address] [address] [address] Rito Madison Sodium [Moles/Vol] 135 mmol/L Critically low 136-145 [facility] Comment on above: Performed By: #### B MP #### [facility] [address] [address] [address] Rito Madison Urea nitrogen [Mass/Vol] 14.0 mg/dL Normal 7.0-18.0 [facility] Comment on above: Performed By: #### B MP #### [facility] [address] [address] [address] iRto Madison Urea nitrogen/Creatinine [Mass ratio] 16.3 mg/mg Normal [facility] Comment on above: Performed By: #### B MP #### [facility] [address] [place] [address] Dr. Rito Madison AMYLASEon 05-07-2022 Amylase [Catalytic activity/Vol] 82 U/L Normal 25-115 [facility] Comment on above: Performed By: #### L IPA, CMP, TRINY ####[facility] [address] [address]Dr. Rito Madison CBC AUTO DIFFon 05-07-2022 BASO # 0.0 103/ul Normal 0.0-0.1 [facility] Comment on above: Performed By: #### C BC ####[facility] [address] [address]Dr. Rito Madison Basophils/100 WBC (Bld) 0.4 % Normal 0.2-2.0 [facility] Comment on above: Performed By: #### C BC ####[facility] [address] [place] [id number] [place] EO # 0.2 103/ul Normal 0.0-0.7 [facility] Comment on above: Performed By: #### C BC ####[facility] [address] [place] [phone]. Rito Madison Eosinophils/100 WBC (Bld) 2.0 % Normal 0.9-7.0 [facility] Comment on above: Performed By: #### C BC ####[facility] [address] [place] [address]Dr. Rito Madison Erythrocyte distribution width (RBC) [Ratio] 12.8 % Normal 11.0-15.0 [facility] Comment on above: Performed By: #### C BC ####[facility] [address] [address]Dr. Rito Madison Hematocrit (Bld) [Volume fraction] 42.7 % Normal 36.0-48.0 [facility] Comment on above: Performed By: #### C BC ####[facility] [address] [place], [place] [address]Dr. Rito Madison Hemoglobin (Bld) [Mass/Vol] 14.2 g/dL Normal 12.0-16.0 [facility] Comment on above: Performed By: #### C BC ####[facility] [address] [place], [place] [address]Dr. Rito Madison IG # 0.03 10e3/ul Normal 0.00-0.03 [facility] Comment on above: Performed By: #### C BC ####[facility] [address] [place], [place] [address]Dr. Rito Madison IG % 0.4 % Normal 0.0-0.5 [facility] Comment on above: Performed By: #### C BC ####[facility] [address] [place], [place] [address]Dr. Rito Madison LYMPH # 2.2 103/ul Normal 1.2-3.8 [facility] Comment on above: Performed By: #### C BC ####[facility] [address] [place], [place] [address]Dr. Rito Madison Lymphocytes/100 WBC (Bld) 26.0 % Normal 20.5-60.0 [facility] Comment on above: Performed By: #### C BC ####[facility] [address] [place] [address]Dr. Rito Madison MANUAL DIFF REQ NO Normal [facility] Comment on above: Performed By: #### C BC ####[facility] [address] [place] [id number]. Rito Madison MCH (RBC) [Entitic mass] 29.2 pg Normal 26.7-34.0 [facility] Comment on above: Performed By: #### C BC ####[facility] [address] [place] [address]Dr. Rito Madison MCHC (RBC) [Mass/Vol] 33.3 g/dL Normal 29.9-35.2 [facility] Comment on above: Performed By: #### C BC ####[facility] [address]mv[address] [place] [phone]. Rito Los MCV (RBC) [Entitic vol] 87.7 fL Normal 81.0-99.0 [facility] Comment on above: Performed By: #### C BC ####[facility] [address] [place], [place] [address]Dr. Rito Madison MONO # 0.8 103/ul Normal 0.3-0.8 [facility] Comment on above: Performed By: #### C BC ####[facility] [address] [place] [address]Dr. Yolyjayda Madison Monocytes/100 WBC (Bld) 9.2 % Normal 1.7-12.0 [facility] Comment on above: Performed By: #### C BC ####[facility] [address] [place], [place] [address]Dr. Yolyjayda Madison NEUT # 5.3 103/ul Normal 1.4-6.5 [facility] Comment on above: Performed By: #### C BC ####[facility] [address] [place], [place] [address]Dr. Rito Madison Neutrophils/100 WBC (Bld) 62.0 % Normal 43.0-75.0 [facility] Comment on above: Performed By: #### C BC ####[facility] [address] [place], [place] [address]Dr. Rito Madison Platelet mean volume (Bld) [Entitic vol] 8.5 fL Critically low 9.5-13.5 [facility] Comment on above: Performed By: #### C BC ####[facility] [address] [place], [place] [address]Pu. Rito Madison PLT 291 103/ul Normal 150-450 [facility] Comment on above: Performed By: #### C BC ####[facility] [address] [place], [place] [address]Qn. Rito Madison RBC 4.87 106/ul Normal 4.20-5.40 [facility] Comment on above: Performed By: #### C BC ####[facility] [address] [place], [place] [address]Dc. Rito Madison WBC 8.5 103/ul Normal 4.0-11.0 [facility] Comment on above: Performed By: #### C BC ####[facility] [address] [place], [place] [address]Da. Rito [address] CT ABD/PELVIS WO CONon 05-07 CT ABD/PELVIS WO CON EXAM: CT ABDOMEN PELVIS WITHOUT IV CONTRAST CLINICAL INDICATION: CALCULUS OF KIDNEY COMPARISON: CT 10/23/2015 TECHNIQUE: Axial CT images were obtained through the abdomen and pelvis without IV contrast. Coronal and sagittal reformats were obtained. Dose reduction techniques were achieved by using automated exposure control and/or adjustment of mA and/or kV according to patient size and/or use of iterative reconstruction technique. FINDINGS: Exam is limited by lack of contrast. Lower thorax: Moderate to large hiatal hernia, enlarged from prior. Heart size upper normal. A few coronary arterial calcifications. Mild atelectasis versus scarring in the lung bases. Liver: Unremarkable. Biliary: Gallbladder is not seen, likely absent. Similar mild prominence of the biliary tree compared to prior, may be due to post surgical state. Spleen: Unremarkable. Pancreas: Unremarkable. Adrenals: Unremarkable. Kidneys and bladder: No calculus, hydronephrosis or finding to suggest sizable renal cyst or mass. Surgical clips again seen in the left abdomen and anterior to the kidney. Bladder is mostly empty. Pelvic phleboliths are present. GI Tract: Stomach and small bowel are without evidence of obstruction. There is fatty infiltration of the ileocecal valve. The appendix is not identified with certainty, however there is no inflammatory process seen in the RLQ. Mild/moderate stool throughout the colon. Several colonic diverticula present without signs of diverticulitis. Redemonstration of a spigelian type hernia involving the right anterolateral abdominal wall which appears essentially stable in size, with a broad neck 3.7 cm diameter. This appears to contain a partial protrusion of the anterior wall of the proximal ascending colon, without evidence of obstruction. Lymph Nodes: No lymphadenopathy. Mesentery/peritoneum: No free fluid or free air. Retroperitoneum: No mass or fluid collection. Vasculature: Atherosclerotic calcifications of the aorta and branches without evidence of AAA. Pelvis: No mass visible. Uterus appears absent. Bones/Soft Tissues: No clearly acute bony abnormality. Osteopenia and moderate diffuse degenerative changes. Chronic compression deformities L2 and L3 appear similar to prior. Mild retrolisthesis L2 on L3 and L3 on L4. Mild vertebral body height loss L5 appears new since 2015 but the appearance favors this is chronic. No definite acute soft tissue abnormality. Redemonstration of soft tissue thickening along the ventral anterior abdominal wall close to midline, essentially unchanged, likely representing postoperative changes. IMPRESSION: 1. No evidence of urinary tract calculi or hydronephrosis. 2. No evidence of other acute obstructive or inflammatory process in the abdomen or pelvis, in the limits of unenhanced exam. 3. Moderate to large hiatal hernia. 4. Redemonstration of spigelian type abdominal wall hernia within the right lateral abdominal wall that has a wide mouth and contains a partial protrusion of the ascending colon. No clear evidence for obstruction. Correlate clinically. 5. Colonic diverticulosis without evidence for diverticulitis. 6. Stable remote compression deformities of L2 and L3. Mild vertebral body height loss L5 is new since 2015 but the appearance favors this is chronic. Correlate clinically. Electronically authenticated by: CATHRYN OATES Date: 2022-05-07 06:53 Normal [facility] CULTURE URINEon 05-07-2022 CULTURE URINE Culture Observations : No growth Normal [facility] Comment on above: Performed By: #### U RCX ####[facility] [address] [place], [place] [address]EiAntonietta MARINO URINE PROFILEon 2 Bilirubin Ql (U) Negative Normal NEGATIVE [facility] Comment on above: Performed By: #### E TAMMY SANTIZO ####[facility] [address] [place] [address]Dr. Rito Madison Clarity (U) CLEAR Normal CLEAR [facility] Comment on above: Performed By: #### RUBEN MARIERO ####[facility] [address] [place], [place] [address]Dr. Yolyjayda Madison Color (U) LT. YELLOW Normal YELLOW [facility] Comment on above: Performed By: #### RUBEN MARIERO ####[facility] [address] [place], [place] [address]Dr. Yolyjayda Madison ERUAHD A micrscopic examination will be performed if indicated. Normal [facility] Comment on above: Performed By: #### RUBEN MARIERO ####[facility] [address] [place], [place] [address]Dr. Rito Madison Glucose Ql (U) Negative Normal NEGATIVE [facility] Comment on above: Performed By: #### MARV MARIEICRO ####[facility] Eg[address] [place], [place] [address]Dr. Yolyajyda Los Hemoglobin Ql (U) Negative Normal NEGATIVE [facility] Comment on above: Performed By: #### RUBEN MARIERO ####[facility] [address] [place], [place] [address]Dr. Rito Madison Ketones Ql (U) Negative Normal NEGATIVE [facility] Comment on above: Performed By: #### MARV MARIEICRO ####[facility] Qu[address]we[address] [place], [place] [address]Dr. Rito Madison LEUKOCYTES MODERATE Abnormal NEGATIVE [facility] Comment on above: Performed By: #### MARV MARIEICRO ####[facility] Vacayrtrpp[address] [place], [place] [address]Dr. Rito Madison Nitrite Ql (U) Negative Normal NEGATIVE [facility] Comment on above: Performed By: #### Jatinder SANTIZO UMICRO ####[facility] Vgt[address] [place], [place] [address]Dr. Rito Madison pH (U) 6.0 [pH] Normal 5-9 [facility] Comment on above: Performed By: #### RUBEN MARIERO ####[facility] [address] [place] [address]Dr. Rito Madison SPEC GRAVITY 1.015 Normal 1.005-<=1.025 [facility] Comment on above: Performed By: #### RUBEN MARIERO ####[facility] [address]benhs[address] [place] [address]Dr. Rito Madison UA PROTEIN Negative Normal NEGATIVE/ TRACE [facility] Comment on above: Performed By: #### Jatinder SANTIZO ICRO ####[facility] [address]elf[address] [place] [address]Dr. Rito Madison UR MICRO IND INDICATED Normal [facility] Comment on above: Performed By: #### Jatinder SANTIZO DAVIERO ####[facility] M[address] [place], [place] [address]Dr. Rito Madison Urobilinogen Qn (U) 0.2 {Scarlet'U}/dL Normal 0.2 - 1. 0 [facility] Comment on above: Performed By: #### Jatinder [facility]ANTIZO [facility] ####[facility] W[address] [place], [place] [address]Dr. Rito Madison LIPASEon 05-07-2022 Lipase [Catalytic activity/Vol] 171.0 U/L Normal 73.0-393.0 [facility] Comment on above: Performed By: #### L IPA, CMP, TRINY ####[facility] S[address] [place], [place] [address]Dr. Rito Madison PROF 14(COMP METB)on 022 Albumin [Mass/Vol] 3.6 g/dL Normal 3.4-5.0 [facility] Comment on above: Performed By: #### L IPA, CMP, TRINY ####[facility] [address] [place], [place] [address]Dr. Rito Madison Albumin/Globulin [Mass ratio] 0.9 {ratio} Normal [facility] Comment on above: Performed By: #### L IPA, CMP, TRINY ####[facility] Dem[address] [place], [place] [address]Dr. Rito Madison ALP [Catalytic activity/Vol] 80 U/L Normal 46-116 [facility] Comment on above: Performed By: #### L IPA, CMP, TRINY ####[facility] [address] [place] [address]Dr. Rito Madison ALT [Catalytic activity/Vol] 22 U/L Normal 14-59 [facility] Comment on above: Performed By: #### L IPA, CMP, TRINY ####[facility] Gpndkwuzoj[address] [place], [place] [address]Dr. Rito Madison Anion gap [Moles/Vol] 9.1 mmol/L Normal [facility] Comment on above: Performed By: #### L IPA, CMP, TRINY ####[facility] Idib[address]ouffj[address] [place], [place] [address]Dr. Rito Madison AST [Catalytic activity/Vol] 25 U/L Normal 15-37 [facility] Comment on above: Performed By: #### L IPA, CMP, TRINY ####[facility] Yljaieils[address] [place], [place] [address]Dr. Rito Madison Bilirubin [Mass/Vol] 0.6 mg/dL Normal 0.2-1.0 [facility] Comment on above: Performed By: #### L IPA CMP, TRINY ####[facility] E[address]dglq[address] [place], [place] [address]Dr. Rito Madison Calcium [Mass/Vol] 9.1 mg/dL Normal 8.5-10.1 [facility] Comment on above: Performed By: #### L IPA, CMP, TRINY ####[facility] Ozsdnuody[address] [place], [place] [address]Dr. Rito Madison Chloride [Moles/Vol] 104 mmol/L Normal 98-107 [facility] Comment on above: Performed By: #### L IPA, CMP, TRINY ####[facility] H[address]ym[address]alfh[address] [place], [place] [address]Dr. Rito Madsion CO2 [Moles/Vol] 28.6 mmol/L Normal 21.0-32.0 [facility] Comment on above: Performed By: #### L IPA, CMP, TRINY ####[facility] [address] [place] [id number]. Rito Madison Creatinine [Mass/Vol] 0.80 mg/dL Normal 0.55-1.02 [facility] Comment on above: Performed By: #### L IPA, CMP, TRINY ####[facility] [address]vfs[address] [place] [id number]. Rito Madison EGFR-AF [place] >60 Normal >=60 [facility] Comment on above: Performed By: #### L IPA, CMP, TRINY ####[facility] [address] [place] [id number]. Rito Madison EGFR-NON AF [place] >60 Normal >=60 [facility] Comment on above: Performed By: #### L IPA, CMP, TRINY ####[facility] [address] [place] [address]Dr. Rito Madison Globulin (S) [Mass/Vol] 3.9 g/dL Normal [facility] Comment on above: Performed By: #### L IPA, CMP, TRINY ####[facility] [address]ubllqq[address] [place] [address]Dr. Rito Madison Glucose [Mass/Vol] 107 mg/dL Critically high 74-106 [facility] Comment on above: Performed By: #### L IPA, CMP, TRINY ####[facility] [address] [place] [address]Dr. Rito Madison Potassium [Moles/Vol] 3.7 mmol/L Normal 3.5-5.1 [facility] Comment on above: Performed By: #### L IPA, CMP, TRINY ####[facility] [address] [place] [address]Dr. Rito Madison Protein [Mass/Vol] 7.5 g/dL Normal 6.4-8.2 [facility] Comment on above: Performed By: #### L IPA, CMP, TRINY ####[facility] Emrmabsfqf[address] [place] [address]Dr. Rito Madison Sodium [Moles/Vol] 138 mmol/L Normal 136-145 [facility] Comment on above: Performed By: #### L IPA, CMP, TRINY ####[facility] Nvp[address]dkxh[address] [place] [address]Dr. Yolyjayda Los Urea nitrogen [Mass/Vol] 14.0 mg/dL Normal 7.0-18.0 [facility] Comment on above: Performed By: #### L IPA, CMP, TRINY ####[facility] [address] [place] [address]Dr. Rito Madison Urea nitrogen/Creatinine [Mass ratio] 17.5 mg/mg Normal [facility] Comment on above: Performed By: #### L IPA, CMP, TRINY ####[facility] [address]ht[address]ew[address] [place] [address]Dr. Rito Madison URINE MICROSCOPIC ONLYon BACTERIA NONE SEEN Normal NONE SEEN [facility] Comment on above: Performed By: #### Jatinder RUJojo UMICRO ####[facility] [address] [place], [place] [address]Dr. Rito Madison Bacteria identified Cx Nom (U) INDICATED Normal [facility] Comment on above: Performed By: #### Jatinder SANTIZO UMICRO ####[facility] [address] [place], [place] [address]Dr. Rito Madison CAST NONE SEEN Normal NONE SEEN [facility] Comment on above: Performed By: #### Jatinder SANTIZO UMICRO ####[facility] [address] [place], [place] [address]Dr. Rito Madison Crystals LM Nom (Urine sed) NONE SEEN Normal NONE SEEN [facility] Comment on above: Performed By: #### E RUR, UMICRO ####[facility] [address] [place] [address]Dr. Rito Madison Epithelial cells LM Ql (Urine sed) FEW Abnormal NONE SEEN /RARE [facility] Comment on above: Performed By: #### E RUR, UMICRO ####[facility] [address] [place] [address]Dr. Rito Madison MUCOUS NONE SEEN Normal NONE SEEN [facility] Comment on above: Performed By: #### E RUR UMICRO ####[facility] [address] [place], [place] [address]Vx. Rito Madison RBC 0-2 Normal 0-2 [facility] Comment on above: Performed By: #### TAMMY MARIE ####[facility] [address] [place], [place] [address]Xu. Rito Madison WBC 10-20 Abnormal NONE SEEN [facility] Comment on above: Performed By: #### TAMMY MARIE ####[facility] [address] [place], [place] [address]Gb. Rito Madison MRI CSPINE WO CONon 03-23-20 MRI CSPINE WO CON EXAMINATION: MRI CSPINE WO CON HISTORY: Arthritis , cervical spine pain COMPARISON: XR C-spine 03/09/2022 TECHNIQUE: A variety of imaging planes and parameters were utilized for visualization of suspected pathology. FINDINGS: CRANIOCERVICAL AREA: Normal foramen magnum with no Chiari malformation. PARASPINAL AREA: Normal with no visible mass. BONES: Marked reversal of normal cervical lordotic curvature extending from C2 to C7. Prior right laminectomy and plate covering C3-C7. CORD: Normal caliber, contour, and signal intensity. CERVICAL DISC LEVELS: C2-C3: Mild central canal and mild right foramen narrowing secondary to uncovertebral joint spurring and degenerative facet arthropathy. C3-C4: Moderate foramen narrowing bilaterally with mild central canal narrowing. Uncovertebral joint spurring and degenerative facet arthropathy. Minimal disc height reduction and minimal disc bulging. Right laminectomy and plate covering causing metallic artifact. C4-C5: Moderate-marked foramen narrowing bilaterally. Moderate central canal narrowing. Mild diffuse disc bulging with bilateral uncovertebral joint spurring and degenerative facet arthropathy. Right laminectomy and plate covering causing metallic artifact. C5-C6: Marked central canal and bilateral foramen narrowing. Moderate diffuse disc bulging with mild disc height reduction. Uncovertebral joint spurring and moderate degenerative facet arthropathy. Right laminectomy and plate covering causing metallic artifact. C6-C7: Marked foramen narrowing bilaterally and moderate central canal narrowing. Moderate diffuse disc bulging with mild disc height reduction. Moderate degenerative facet arthropathy. Right laminectomy with plate covering causing metallic artifact. C7-T1:. Early degenerative disc disease is present without focal protrusion or neural impingement. IMPRESSION: 1. Multilevel degenerative changes causing central canal and foramen narrowing, greatest at C5-6 and C6-7. 2. Marked reversal of normal lordotic curvature of cervical spine. 3. Right laminectomy and plate covering involving C3-C7. Electronically authenticated by: SURYA MONTEMAYOR Date: 2022-03-23 06:23 Normal [facility] XR CSPINE MIN 4 VIEWSon 08- XR CSPINE MIN 4 VIEWS EXAMINATION: XR CSPINE MIN 4 VIEWS HISTORY: Cervical disc disorder with radiculopathy ; increasing posterior neck pain COMPARISON: XR cervical spine 03/21/2018 FINDINGS: BONES: Prominent reversal of the normal lordotic curvature. Mild grade 1 retrolisthesis of C5 on C6. No fracture or bone lesion. Right laminectomy posterior plate placement involving C3 through C7. Moderate bony encroachment on the left C6-C7 neural foramen and right C6-C7, C7-T1 foramen. DISC SPACES: Moderate narrowing C5-C6, C6-C7. Mild narrowing at remaining levels. PARASPINOUS: Negative. No paraspinous abnormality is seen. OTHER: Negative. IMPRESSION: 1. Multilevel surgical changes, degenerative disc disease, degenerative facet arthropathy. No appreciable significant change compared to 2018. Electronically authenticated by: SURYA MONTEMAYOR Date: 2022-03-10 11:08 Normal [facility] EKG 12 LeadOrdered By: Taz Gan on 02-16-2021 Atrial Rate 58 BPM [employer] Phone: P [place]lin 67 degrees [employer] Phone: P-R Interval 156 ms [employer] Phone: Q-T Interval 446 ms [employer] Phone: QRS Duration 112 ms [employer] Phone: QTc Calculation (Bazett) 437 ms [employer] Phone: R Bucklin -75 degrees [employer] Phone: T Bucklin 27 degrees [employer] Phone: [phone] Ventricular Rate 58 BPM [employer] Phone: Sinus bradycardia Left axis deviation Pulmonary disease pattern T wave abnormality, consider anterior ischemia Abnormal ECG When compared with ECG of 19-MAY-2020 14:49, Incomplete right bundle branch block is no longer Present T wave inversion no longer evident in Inferior leads T wave inversion no longer evident in Lateral leads [employer] Phone: Marlo, Mhpn Incoming Ekg Results From [facility] [place] - 02/16/2021 9:14 AM EDT Sinus bradycardia Left axis deviation Pulmonary disease pattern T wave abnormality, consider anterior ischemia Abnormal ECG When compared with ECG of 19-MAY-2020 14:49, Incomplete right bundle branch block is no longer Present T wave inversion no longer evident in Inferior leads T wave inversion no longer evident in Lateral leads [facility] Phone: [employer] Phone: MRSA DNA Probe, NasalOrdered By: Chanel Fuentes on 02-16-2021 MRSA, DNA, Nasal NEGATIVE: MRSA DNA not detected by nucleic acid amplification. NEGATIVE: MRSA DNA not detected by nucleic acid amplificati [facility] Phone: Comment on above: Results should be used as an adjunct to nosocomial control efforts to identify patients needing enhanced precautions. The test is not intended to identify patients with staphylococcal infections. Results should not be used to guide or monitor treatment for MRSA infections. Specimen Description .NASAL SWAB [facility] [employer] Phone: [facility] Phone: MRSA, DNA, Nasalon MRSA, DNA, Nasal NEGATIVE: MRSA DNA not detected by nucleic acid amplification. Normal [facility] Comment on above: Result Comment: Results should be used as an adjunct to nosocomial control efforts to identify patients needing enhanced precautions. The test is not intended to identify patients with staphylococcal infections. Results should not be used to guide or monitor treatment for MRSA infections. Performed By: #### M RSANO #### [facility] [address] [place] [address] Ship Engineer: Rui Strauss DO [address] [address] [place] [address] Ship Engineer: Brody Remy MD Basic Metabolic PanelOrdered By: Taz Gan on 02-15-2021 Anion gap [Moles/Vol] 7 mmol/L Low 9 - 17 mmol/L [employer] Phone: Calcium [Mass/Vol] 9.0 mg/dL 8.6 - 10. 4 mg/dL [employer] Phone: Chloride [Moles/Vol] 103 mmol/L 98 - 10 7 mmol/L [employer] Phone: CO2 [Moles/Vol] 30 mmol/L 20 - 31 mmol/L [employer] Phone: Creatinine [Mass/Vol] 0.61 mg/dL 0.50 - 0.90 mg/dL [employer] Phone: GFR >60 >60 mL/min [employer] Phone: GFR Non- >60 >60 mL/min [employer] Phone: GFR/1.73 sq M.predicted MDRD (S/P/Bld) [Vol rate/Area] [employer] Phone: Comment on above: Average GFR for 70 o r more years old: 75 mL/min/1.73sq m Chronic Kidney Disease: <60 mL/min/1.73sq m Kidney failure: <15 mL/min/1.73sq m eGFR calculated using average adult body mass. Additional eGFR calculator available at: http://www.[employer]com/multiple_crcl_2012.htm GFR/1.73 sq M.predicted MDRD (S/P/Bld) [Vol rate/Area] NOT REPORTED [employer] Phone: Glucose [Mass/Vol] 95 mg/dL 70 - 99 mg/dL [facility] [employer] Phone: Interpretation and review of laboratory results Abnormal [facility] Phone: Potassium [Moles/Vol] 4.1 mmol/L 3.7 - 5.3 mmol/L [facility] Phone: Sodium [Moles/Vol] 140 mmol/L 135 - 144 mmol/L [facility] Phone: Urea nitrogen (BldV) [Mass/Vol] 16 mg/dL 8 - 23 mg/dL [facility] Phone: Urea nitrogen/Creatinine (Bld) [Mass ratio] NOT REPORTED [facility] Phone: [employer] Phone: Basic Metabolic Profon 02-15 (cont.) Normal [facility] Comment on above: Result Comment: Aver age GFR for 70 or more years old: 75 mL/min/1.73sq m Chronic Kidney Disease: <60 mL/min/1.73sq m Kidney failure: <15 mL/min/1.73sq m eGFR calculated using average adult body mass. Additional eGFR calculator available at: http://www.[employer]/multiple_crcl_2012.htm Performed By: #### B ROSSI, CDP #### [facility] [address] [place], [place] [id number] Ship Engineer: Rui Strauss DO Anion gap [Moles/Vol] 7 mmol/L Low 9-17 [facility] Comment on above: Performed By: #### B ROSSI, CDP #### [facility] [address] [place], [place] [id number] Ship Engineer: Rui Strauss DO Calcium [Mass/Vol] 9.0 mg/dL Normal 8.6-10.4 [facility] Comment on above: Performed By: #### B ROSSI, CDP #### [facility] [address] [place] [address] Ship Engineer: Rui Strauss DO Chloride [Moles/Vol] 103 mmol/L Normal 98-[address] [facility] Comment on above: Performed By: #### B ROSSI, CDP #### [facility] [address] [place] [address] Ship Engineer: Rui Strauss DO CO2 [Moles/Vol] 30 mmol/L Normal 20-31 [facility] Comment on above: Performed By: #### B ROSSI, CDP #### [facility] [address] [place] [address] Ship Engineer: Rui Strauss DO Creatinine [Mass/Vol] 0.61 mg/dL Normal 0.50-0.90 [facility] Comment on above: Performed By: #### B ROSSI, CDP #### [facility] [facility] [address] Ship Engineer: Rui Strauss DO GFR, Amer >60 Normal >60 [facility] Comment on above: Performed By: #### B ROSSI, CDP #### [facility] [address] [address] [facility] [place] [address] Ship Engineer: Rui Strauss DO GFR,non Amer >60 Normal >[address] [facility] Comment on above: Performed By: #### B ROSSI, CDP #### [facility] [address] [place] [address] Ship Engineer: Rui Strauss DO Glucose [Mass/Vol] 95 mg/dL Normal 70-99 [facility] Comment on above: Performed By: #### B ROSSI, CDP #### [facility] [address] [place] [address] Ship Engineer: Rui Strauss DO Potassium [Moles/Vol] 4.1 mmol/L Normal 3.7-5.3 [facility] Comment on above: Performed By: #### B ROSSI, CDP #### [facility] [address] [place] [address] Ship Engineer: Rui Strauss DO Sodium [Moles/Vol] 140 mmol/L Normal 135-144 [facility] Comment on above: Performed By: #### B ROSSI, CDP #### [facility] [address] [facility] [place] [address] Ship Engineer: Rui Strauss DO Urea nitrogen [Mass/Vol] 16 mg/dL Normal 8-23 [facility] Comment on above: Performed By: #### B ROSSI, CDP #### [facility] [address] [facility] [place] [address] Ship Engineer: Rui Strauss DO BUN/CRE Ratio NOT REPORTED Normal 9-20 [facility] Comment on above: Performed By: #### B ROSSI, CDP #### [facility] [address] [facility] [place] [address] Ship Engineer: Rui Strauss DO Staging: NOT REPORTED Normal [facility] Comment on above: Performed By: #### B ROSSI, CDP #### [facility] [address] [facility] [place] [address] Ship Engineer: Rui Strauss DO CBC Auto DifferentialOrdered By: Taz Gan on 02-15-2021 Absolute Eos # 0.10 [employer] Phone: Absolute Immature Granulocyte NOT REPORTED [employer] Phone: Absolute Lymph # 1.90 [employer] Phone: Absolute [place] # 0.60 [employer] Phone: Basophils (Bld) [#/Vol] 0.00 10*3/uL [employer] Phone: Basophils/100 WBC (Bld) 0 % 0 - 2 % M [employer] Phone: Differential Type NOT REPORTED [employer] Phone: Eosinophils/100 WBC (Bld) 1 % 0 - 4 % [employer] Phone: Hematocrit (Bld) [Volume fraction] 37.1 % 36 - 46 % [employer] Phone: Hemoglobin.gastrointest inal spec 1 Ql (Stl) 12.6 g/dL 12.0 - 16.0 g/dL [employer] Phone: Immature Granulocytes NOT REPORTED 0 % M [employer] Phone: Interpretation and review of laboratory results Abnormal [employer] Phone: Lymphocytes/100 WBC (Bld) 28 % 24 - 44 % [employer] Phone: MCH (RBC) [Entitic mass] 36.5 pg High 26 - 34 pg [employer] Phone: MCHC (RBC) [Mass/Vol] 34.0 g/dL 31 - 37 g/dL M [employer] Phone: MCV (RBC) [Entitic vol] 107.3 fL High 80 - 100 fL [employer] Phone: Monocytes/100 WBC (Bld) 8 % High 1 - 7 % M [employer] Phone: NRBC Automated NOT REPORTED per 100 WBC [employer] Phone: Platelet distribution width (Bld) [Ratio] 15.9 % High 11.5 - 14.9 % [employer] Phone: Platelet Estimate NOT REPORTED [employer] Phone: Platelet mean volume (Bld) [Entitic vol] 6.5 fL 6.0 - 12.0 fL [employer] Phone: Platelets (Bld) [#/Vol] 292 10*3/uL [employer] Phone: RBC (Bld) [#/Vol] 3.46 10*6/uL Low 4.0 - 5.2 m/uL [employer] Phone: RBC (Bld) [#/Vol] NOT REPORTED [employer] Phone: Segmented neutrophils/100 WBC (Bld) 63 % 36 - 66 % [employer] Phone: Segs Absolute 4.20 [employer] Phone: WBC (Bld) [#/Vol] 6.7 10*3/uL [employer] Phone: WBC (Bld) [#/Vol] NOT REPORTED [employer] Phone: [employer] Phone: CBC with Diffon 02-15-2021 Abs. Basophil 0.00 k/uL Normal 0.0-0.2 [facility] Comment on above: Performed By: #### B ROSSI, CDP #### [facility] [address] [place] [address] Ship Engineer: Rui Strauss DO Abs.Neutrophil (Seg) 4.20 k/uL Normal 1.3-9.[address] [facility] Comment on above: Performed By: #### B ROSSI, CDP #### [facility] [address] [place] [address] Ship Engineer: Rui Strauss DO Basophils/100 WBC (Bld) 0 % Normal 0-2 [facility] Comment on above: Performed By: #### B ROSSI, CDP #### [facility] [address] [place] [address] Ship Engineer: Rui Strauss DO Eosinophils (Bld) [#/Vol] 0.10 10*3/uL Normal 0.0-0.4 [facility] Comment on above: Performed By: #### Lazaro RICHEY, CDP #### [facility] [address] [place] [address] Ship Engineer: Rui Strauss DO Eosinophils/100 WBC (Bld) 1 % Normal 0-4 [facility] Comment on above: Performed By: #### B ROSSI, CDP #### [facility] [address] [place] [address] Ship Engineer: Rui Strauss DO Erythrocyte distribution width (RBC) [Ratio] 15.9 % High 11.5-14.9 [facility] Comment on above: Performed By: #### Lazaro RICHEY, CDP #### [facility] [facility] [place] [address] Ship Engineer: Rui Strauss DO Hematocrit (Bld) [Volume fraction] 37.1 % Normal 36-46 [facility] Comment on above: Performed By: #### Lazaro RICHEY, CDP #### [facility] [address] [place] [address] Ship Engineer: Rui Strauss DO Hemoglobin (Bld) [Mass/Vol] 12.6 g/dL Normal 12.0-16.0 [facility] Comment on above: Performed By: #### Lazaro RICHEY, CDP #### [facility] [facility] [facility] [place] [address] Ship Engineer: Rui Strauss DO Lymphocytes (Bld) [#/Vol] 1.90 10*3/uL Normal 1.0-4.8 [facility] Comment on above: Performed By: #### B ROSSI, CDP #### [facility] [address] [place] [address] Ship Engineer: Rui Strauss DO Lymphocytes/100 WBC (Bld) 28 % Normal 24-44 [facility] Comment on above: Performed By: #### B ROSSI, CDP #### [facility] [address] [place] [address] Ship Engineer: Rui Strauss DO MCH (RBC) [Entitic mass] 36.5 pg High 26-34 [facility] Comment on above: Performed By: #### B ROSSI, CDP #### [facility] [address] [place] [address] Ship Engineer: Rui Strauss DO MCHC (RBC) [Mass/Vol] 34.0 g/dL Normal 31-37 [facility] Comment on above: Performed By: #### Lazaro RICHEY, CDP #### [facility] [address] [place] [id number] Ship Engineer: Rui Strauss DO MCV (RBC) [Entitic vol] 107.3 fL High 80-100 [facility] Comment on above: Performed By: #### Lazaro RICHEY, CDP #### [facility] [address] [place] [address] Ship Engineer: Rui Strauss DO Monocytes (Bld) [#/Vol] 0.60 10*3/uL Normal 0.1-1.3 [facility] Comment on above: Performed By: #### B ROSSI, CDP #### [facility] [place] [address] Ship Engineer: Rui Strauss DO Monocytes/100 WBC (Bld) 8 % High 1-7 M [facility] Comment on above: Performed By: #### B ROSSI, CDP #### [facility] [address] [place] [address] 99862 Ship Engineer: Rui Strauss DO Neutrophil (Seg) 63 % Normal 36-66 [facility] Comment on above: Performed By: #### Lazaro RICHEY, CDP #### [facility] [address] [place], [place] [address] [place] [address] Ship Engineer: Rui Strauss DO Platelet mean volume (Bld) [Entitic vol] 6.5 fL Normal 6.0-12.0 [facility] Comment on above: Performed By: #### Lazaro RICHEY, CDP #### [facility] [address] [place] [address] Ship Engineer: Rui Strauss DO Platelets (Bld) [#/Vol] 292 10*3/uL Normal 150-450 [facility] Comment on above: Performed By: #### Lazaro RICHEY, CDP #### [facility] [address] [place] [address] Ship Engineer: Rui Strauss DO RBC (Bld) [#/Vol] 3.46 10*6/uL Low 4.0-5.2 [facility] Comment on above: Performed By: #### Lazaro RICHEY, CDP #### [facility] [address] [place] [address] Ship Engineer: Rui Strauss DO WBC (Bld) [#/Vol] 6.7 10*3/uL Normal 3.5-11.0 [facility] Comment on above: Performed By: #### B ROSSI, CDP #### [facility] [address] [place] [address] Ship Engineer: Rui Strauss DO Abs.Imm.Granulocyte NOT REPORTED Normal 0.00-0.30 [facility] Comment on above: Performed By: #### Lazaro RICHEY, CDP #### [facility] [address] [place] [address] Ship Engineer: Rui Strauss DO Auto Diff Performed NOT REPORTED Normal [facility] Comment on above: Performed By: #### B MP, CDP #### [facility] [address] [place] [address] Ship Engineer: Rui Strauss DO Immature Granulocyte NOT REPORTED Normal 0 Me [facility] Comment on above: Performed By: #### B MP, CDP #### [facility] [address] [place] [address] Ship Engineer: Rui Strauss DO NRBC Automated NOT REPORTED Normal [facility] Comment on above: Performed By: #### B ROSSI, CDP #### [facility] [address] [place] [address] Ship Engineer: Rui Strauss DO Platelet Estimate NOT REPORTED Normal [facility] Comment on above: Performed By: #### B ROSSI, CDP #### [facility] [address] [place] [address] 100[address] Ship Engineer: Rui Strauss DO RBC morphology finding Nom (Bld) NOT REPORTED Normal [facility] Comment on above: Performed By: #### B ROSSI, CDP #### [facility] [address] [place] [address] Ship Engineer: Rui Strauss DO WBC Morphology NOT REPORTED Normal [facility] Comment on above: Performed By: #### B ROSSI, CDP #### [facility] [address] [place] [address] Ship Engineer: Rui Strauss DO MRSA, DNA, Nasalon 1 Specimen Description .NASAL SWAB Normal [facility] Comment on above: Performed By: #### M RSANO #### [facility] [address] [place] [address] Ship Engineer: Rui Strauss DO [facility] [address] [place] [address] Ship Engineer: Brody Remy MD Microscopic UrinalysisOrdere d By: Taz Gan on 02-15-2021 - [employer] Work Phone: Amorphous, UA NOT REPORTED None [employer] Phone: Bacteria, UA FEW Abnormal None [employer] Phone: Casts UA NOT REPORTED /LPF [employer] Work Phone: Crystals, UA NOT REPORTED None /HPF [facility] Work Phone: Epithelial Cells UA 10 TO 20 /HPF [facility] Phone: Interpretation and review of laboratory results Abnormal [employer] Phone: Mucus, UA NOT REPORTED None [facility] Phone: Other Observations UA NOT REPORTED NOT REQ. M [facility] [employer] Work Phone: RBC, UA 0 TO 2 /HPF [facility] [employer] Work Phone: Renal Epithelial, UA NOT REPORTED 0 /HPF [facility] [employer] Work Phone: Trichomonas, UA NOT REPORTED None [facility] Phone: WBC, UA 5 TO 10 /HPF [facility] [employer] Work Phone: Yeast, UA NOT REPORTED None [facility] Phone: [facility] [employer] Work Phone: UA w/Reflex Cultureon 2020 Bilirubin, SemiQt,Ur Negative Normal NEG [facility] Comment on above: Performed By: #### U MICAO, UAX #### [facility] [address] [place] [address] Ship Engineer: Rui Strauss DO Blood, Urine Negative Normal NEG [facility] Comment on above: Performed By: #### U MICAO, UAX #### [facility] [address] [facility] [place] [address] Ship Engineer: Rui Strauss DO Clarity (U) CLEAR Normal CLEAR [facility] Comment on above: Performed By: #### U MICAO, UAX #### [facility] [address] [facility] [place] [address] Ship Engineer: Rui Strauss DO Color (U) YELLOW Normal YEL [facility] Comment on above: Performed By: #### U MICAO, UAX #### [facility] [address] [facility] [place] [address] Ship Engineer: Rui Strauss DO Glucose Ql (U) Negative Normal NEG [facility] Comment on above: Performed By: #### U MICAO, UAX #### [facility] [address] [facility] [place] [address] Ship Engineer: Rui Strauss DO Ketones Ql (U) Negative Normal NEG [facility] Comment on above: Performed By: #### U MICAO, UAX #### [facility] [address] [facility] [place] [address] Ship Engineer: Rui Strauss DO Leukocyte esterase Test strip Ql (U) SMALL Abnormal NEG [facility] Comment on above: Performed By: #### U MICAO, UAX #### [facility] [address] [facility] [place] [address] Ship Engineer: Rui Strauss DO Nitrite,Ur Negative Normal NEG [facility] Comment on above: Performed By: #### U MICAO, UAX #### [facility] [address] [facility] [place] [address] Ship Engineer: uRi Strauss DO PH,Ur 5.5 Normal 5.0-8.0 [facility] Comment on above: Performed By: #### U SABRAO, UAX #### [facility] [address] [facility] [place] [address] Ship Engineer: Rui Strauss DO Protein Ql (U) Negative Normal NEG [facility] Comment on above: Performed By: #### U SABRAO, UAX #### [facility] [address] [place] [address] Ship Engineer: Rui Strauss DO Spec. [place],Ur 1.022 Normal 1.000-1.030 [facility] Comment on above: Performed By: #### U SABRAO, UAX #### [facility] [address] [place] [address] Ship Engineer: Rui Strauss DO Urobilinogen,Ur Normal Normal NORM [facility] Comment on above: Performed By: #### U JEMIMA, UAX #### [facility] [address] [place] [address] Ship Engineer: Rui Strauss DO Comment NOT REPORTED Normal [facility] Comment on above: Performed By: #### U SABRAO, UAX #### [facility] [address] [place] [address] Ship Engineer: Rui Strauss DO Urinalysis Reflex to Culture Ordered By: Taz Gan on 02-15-2021 Bilirubin Urine Negative NEGATIVE [employer] Phone: Color, UA YELLOW YELLOW [employer] Work Phone: Glucose, Ur Negative NEGATIVE [employer] Phone: Interpretation and review of laboratory results Abnormal [employer] Phone: Ketones Ql (U) Negative NEGATIVE [employer] Phone: Leukocyte esterase Test strip Ql (U) SMALL Abnormal NEGATIVE [employer] Phone: Nitrite, Urine Negative NEGATIVE [employer] Work Phone: pH, UA 5.5 [employer] Work Phone: Protein, UA Negative NEGATIVE [employer] Phone: Specific [place], UA 1.022 [employer] Work Phone: Turbidity UA CLEAR CLEAR [employer] Work Phone: Urinalysis Comments NOT REPORTED [facility] [employer] Work Phone: Urine Hgb Negative NEGATIVE [employer] Phone: Urobilinogen, Urine Normal Normal [facility] Phone: [employer] Phone: Urinalysis,Microon 1 ----- Normal [facility] Comment on above: Performed By: #### AWAIS ALMAZANX #### [facility] [address] [place] [address] Ship Engineer: Rui Strauss DO Bacteria FEW Abnormal NONE [facility] Comment on above: Performed By: #### AWAIS ALMAZANX #### [facility] [address] [place] [address] Ship Engineer: Rui Strauss DO Epithelial cells LM Ql (Urine sed) 10 TO 20 Normal [facility] Comment on above: Performed By: #### AWAIS ALMAZANX #### [facility] [address] [place] [address] Ship Engineer: Rui Strauss DO Urine RBC's 0 TO 2 Normal [facility] Comment on above: Performed By: #### AWAIS ALMAZANX #### [facility] [address] [facility] [place] [address] Ship Engineer: Rui Strauss DO Urine WBC's 5 TO 10 Normal [facility] Comment on above: Performed By: #### U SABRAO, UAX #### [facility] [address] [facility] [place] [address] Ship Engineer: Rui Strauss DO Amorphous sediment LM Ql (Urine sed) NOT REPORTED Normal NONE [facility] Comment on above: Performed By: #### U JEMIMA UAX #### [facility] [address] [address] [facility] [place] [address] Ship Engineer: Rui Strauss DO Casts NOT REPORTED Normal [facility] Comment on above: Performed By: #### Tony ONOFRE UAX #### [facility] [address] [facility] [place] [address] Ship Engineer: Rui Strauss DO Crystals LM Nom (Urine sed) NOT REPORTED Normal NONE [facility] Comment on above: Performed By: #### U JEMIMA, UAX #### [facility] [address] [facility] [place] [address] Ship Engineer: Rui Strauss DO Epithelial, Renal NOT REPORTED Normal 0 [facility] Comment on above: Performed By: #### U JEMIMA, UAX #### [facility] [address] [facility] [place] [address] Ship Engineer: Rui Srtauss DO Mucus Strands NOT REPORTED Normal NONE [facility] Comment on above: Performed By: #### U JEMIMA, UAX #### [facility] [address] [facility] [place] [address] Ship Engineer: Rui Strauss DO Other Observations NOT REPORTED Normal NREQ [facility] Comment on above: Performed By: #### U MICAO, UAX #### [facility] [address] [facility] [place] [address] Ship Engineer: Rui Strauss DO Trichomonas NOT REPORTED Normal NONE [facility] Comment on above: Performed By: #### U MICAO, UAX #### [facility] [address] [facility] [place] [address] Ship Engineer: Rui Strauss DO Yeast NOT REPORTED Normal NONE [facility] Comment on above: Performed By: #### U MICAO, UAX #### [facility] [address] [facility] [place] [address] Ship Engineer: Rui Strauss DO EKG 12 Leadon 05-21-2020 Atrial Rate 66 BPM [place] P [place] 54 degrees [place] P-R Interval 132 ms [place] Q-T Interval 420 ms [place] QRS Duration 100 ms [place] QTc Calculation (Bazett) 440 ms [place] R [place] -89 degrees [facility], [place] T [place]lin -20 degrees [place] Urea nitrogen [Mass/Vol] Normal sinus rhythm Left axis deviation Incomplete right bundle branch block ST & T wave abnormality, consider anterolateral ischemia Abnormal ECG No previous ECGs available [place] Ventricular Rate 66 BPM [place] Marlo, Mhpn Incoming Ekg Results From [employer] - 05/21/2020 9:08 AM EST Normal sinus rhythm Left axis deviation Incomplete right bundle branch block ST & T wave abnormality, consider anterolateral ischemia Abnormal ECG No previous ECGs available [place] MRSA DNA Probe, Nasalon - MRSA, DNA, Nasal NEGATIVE: MRSA DNA not detected by nucleic acid amplification. NEGATIVE: MRSA DNA not detected by nucleic acid amplificati [place] Comment on above: Results should be used as an adjunct to nosocomial control efforts to identify patients needing enhanced precautions. The test is not intended to identify patients with staphylococcal infections. Results should not be used to guide or monitor treatment for MRSA infections. Specimen Description .NASAL SWAB [place] MRSA, DNA, Nasalon 0 MRSA, DNA, Nasal NEGATIVE: MRSA DNA not detected by nucleic acid amplification. Normal NMRSAA [facility] Comment on above: Result Comment: Results should be used as an adjunct to nosocomial control efforts to identify patients needing enhanced precautions. The test is not intended to identify patients with staphylococcal infections. Results should not be used to guide or monitor treatment for MRSA infections. Performed By: #### M RSANO #### [facility] [address] [place] [address] Ship Engineer: Rui Strauss DO [facility] [address] [place] [address] Ship Engineer: Brody Remy MD Basic Metabolic Panelon 11-0 Anion gap [Moles/Vol] 8 mmol/L Low 9 - 17 mmol/L [place] Bun/Cre Ratio NOT REPORTED [place] Calcium [Mass/Vol] 9.1 mg/dL 8.6 - 10. 4 mg/dL [place] Chloride [Moles/Vol] 102 mmol/L 98 - 10 7 mmol/L [place] CO2 [Moles/Vol] 28 mmol/L 20 - 31 mmol/L [place] Creatinine [Mass/Vol] 0.53 mg/dL 0.5 - 0.9 mg/dL [place] GFR >60 >60 mL/min [place] GFR Non- >60 >60 mL/min [place] GFR/1.73 sq M predicted among non-blacks MDRD (S/P/Bld) [Vol rate/Area] NOT REPORTED [place] GFR/1.73 sq M predicted among non-blacks MDRD (S/P/Bld) [Vol rate/Area] [place] Comment on above: Average GFR for 70 o r more years old: 75 mL/min/1.73sq m Chronic Kidney Disease: <60 mL/min/1.73sq m Kidney failure: <15 mL/min/1.73sq m eGFR calculated using average adult body mass. Additional eGFR calculator available at: http://www.[employer]/multiple_crcl_2012.htm Glucose [Mass/Vol] 116 mg/dL High 70 - 99 mg/dL [place] Interpretation and review of laboratory results Abnormal [place] Potassium [Moles/Vol] 4.3 mmol/L 3.7 - 5.3 mmol/L [place] Sodium [Moles/Vol] 138 mmol/L 135 - 144 mmol/L [place] Urea nitrogen [Mass/Vol] 12 mg/dL 8 - 23 mg/dL [place] Basic Metabolic Profon 05-19 (cont.) Normal [facility] Comment on above: Result Comment: Aver age GFR for 70 or more years old: 75 mL/min/1.73sq m Chronic Kidney Disease: <60 mL/min/1.73sq m Kidney failure: <15 mL/min/1.73sq m eGFR calculated using average adult body mass. Additional eGFR calculator available at: http://www.[employer]/multiple_crcl_2012.htm Performed By: #### C CHARLY, BMP #### [facility] [address] [place] [address] Ship Engineer: Rui Strauss DO Anion gap [Moles/Vol] 8 mmol/L Low 9-17 [facility] Comment on above: Performed By: #### C CHARLY, BMP #### [facility] [address] [place] [address] Ship Engineer: Rui Strauss DO Calcium [Mass/Vol] 9.1 mg/dL Normal 8.6-10.4 [facility] Comment on above: Performed By: #### C CHARLY, BMP #### [facility] [address] [place] [address] Ship Engineer: Fanelly, Rui, DO Chloride [Moles/Vol] 102 mmol/L Normal 98-[address] [facility] Comment on above: Performed By: #### C DP, BMP #### [facility] [address] [place] [address] Ship Engineer: Rui Strauss, DO CO2 [Moles/Vol] 28 mmol/L Normal 20-31 [facility] Comment on above: Performed By: #### C DP, BMP #### [facility] [address] [place] [address] Ship Engineer: Rui Strauss, DO Creatinine [Mass/Vol] 0.53 mg/dL Normal 0.50-0.90 [facility] Comment on above: Performed By: #### C DP, BMP #### [facility] [address] [place] [address] Ship Engineer: Rui Strauss, DO GFR, Amer >60 Normal >60 [facility] Comment on above: Performed By: #### C DP, BMP #### [facility] [address] [place] [address] Ship Engineer: Rui Strauss DO GFR,non Amer >60 Normal >[address] [facility] Comment on above: Performed By: #### C DP, BMP #### [facility] [address] [place] [address] Ship Engineer: Rui Strauss DO Glucose [Mass/Vol] 116 mg/dL High 70-99 [facility] Comment on above: Performed By: #### C DP, BMP #### [facility] [address] [place] [address] Ship Engineer: Rui Strauss DO Potassium [Moles/Vol] 4.3 mmol/L Normal 3.7-5.3 [facility] Comment on above: Performed By: #### C DP, BMP #### [facility] [address] [facility] [place] [address] Ship Engineer: Rui Strauss DO Sodium [Moles/Vol] 138 mmol/L Normal 135-144 [facility] Comment on above: Performed By: #### C DP, BMP #### [facility] [address] [facility] [place] [address] Ship Engineer: Rui Strauss DO Urea nitrogen [Mass/Vol] 12 mg/dL Normal 8-23 [facility] Comment on above: Performed By: #### C DP, BMP #### [facility] [address] [facility] [place] [address] Ship Engineer: Rui Strauss DO BUN/CRE Ratio NOT REPORTED Normal 9-20 [facility] Comment on above: Performed By: #### C DP, BMP #### [facility] [address] [facility] [place] [address] Ship Engineer: Rui Strauss DO Staging: NOT REPORTED Normal [facility] Comment on above: Performed By: #### C DP, BMP #### [facility] [address] [facility] [place] [address] Ship Engineer: Rui Strauss DO CBC Auto Differentialon 11-0 Basophils (Bld) [#/Vol] 0.00 10*3/uL [place] Basophils/100 WBC (Bld) 1 % 0 - 2 % [place] Differential Type NOT REPORTED [place] Eosinophils (Bld) [#/Vol] 0.10 10*3/uL [place] Eosinophils/100 WBC (Bld) 2 % 0 - 4 % [place] Erythrocyte distribution width (RBC) [Ratio] 15.8 % High 11.5 - 14.9 % [place] Hematocrit (Bld) [Volume fraction] 41.2 % 36 - 46 % [place] Hemoglobin (Bld) [Mass/Vol] 14.0 g/dL 12 - 16 g/dL [place] Interpretation and review of laboratory results Abnormal [place] Lymphocytes (Bld) [#/Vol] 1.90 10*3/uL [place] Lymphocytes/100 WBC (Bld) 26 % 24 - 44 % [place] MCH (RBC) [Entitic mass] 32.8 pg 26 - 34 pg [place] MCHC (RBC) [Mass/Vol] 34.0 g/dL 31 - 37 g/dL [place] MCV (RBC) [Entitic vol] 96.3 fL 80 - 100 fL [place] Monocytes (Bld) [#/Vol] 0.80 10*3/uL [place] Monocytes/100 WBC (Bld) 10 % High 1 - 7 % [place] Platelet mean volume (Bld) [Entitic vol] 6.5 fL 6 - 12 fL [place] Platelets (Bld) [#/Vol] NOT REPORTED [place] Platelets (Bld) [#/Vol] 299 10*3/uL [place] RBC (Bld) [#/Vol] 4.28 10*6/uL 4 - 5.2 m/uL [place] RBC morphology finding Nom (Bld) NOT REPORTED [place] Segmented neutrophils/100 WBC (Bld) 61 % 36 - 66 % [place] Segs Absolute 4.50 [place] WBC (Bld) [#/Vol] 7.3 10*3/uL [place] WBC (Bld) [#/Vol] NOT REPORTED per 100 WBC [place] WBC Morphology NOT REPORTED [place] CBC with Diffon 05-19-2020 Abs. Basophil 0.00 k/uL Normal 0.0-0.2 [facility] Comment on above: Performed By: #### C DP, BMP #### [facility] [address] [place] [address] Ship Engineer: Rui Strauss DO Abs.Neutrophil (Seg) 4.50 k/uL Normal 1.3-9.[address] [facility] Comment on above: Performed By: #### C DP, BMP #### [facility] [address] [place] [address] Ship Engineer: Rui Strauss DO Basophils/100 WBC (Bld) 1 % Normal 0-2 [facility] Comment on above: Performed By: #### C DP, BMP #### [facility] [address] [place] [address] Ship Engineer: Rui Strauss DO Eosinophils (Bld) [#/Vol] 0.10 10*3/uL Normal 0.0-0.4 [facility] Comment on above: Performed By: #### C DP, BMP #### [facility] [place] [address] Ship Engineer: Rui Strauss DO Eosinophils/100 WBC (Bld) 2 % Normal 0-4 [facility] Comment on above: Performed By: #### C DP, BMP #### [facility] [place] [address] Ship Engineer: Rui Strauss DO Erythrocyte distribution width (RBC) [Ratio] 15.8 % High 11.5-14.9 [facility] Comment on above: Performed By: #### C DP, BMP #### [facility] [place] [address] Ship Engineer: Rui Strauss DO Hematocrit (Bld) [Volume fraction] 41.2 % Normal 36-46 [facility] Comment on above: Performed By: #### C DP, BMP #### [facility] [place] [address] Ship Engineer: Rui Strauss DO Hemoglobin (Bld) [Mass/Vol] 14.0 g/dL Normal 12.0-16.0 [facility] Comment on above: Performed By: #### C DP, BMP #### [facility] [address] [place] [address] Ship Engineer: Rui Strauss DO Lymphocytes (Bld) [#/Vol] 1.90 10*3/uL Normal 1.0-4.8 [facility] Comment on above: Performed By: #### C DP, BMP #### [facility] [address] [place] [address] Ship Engineer: Rui Strauss DO Lymphocytes/100 WBC (Bld) 26 % Normal 24-44 [facility] Comment on above: Performed By: #### C CHARLY, BMP #### [facility] [address] [place] [address] 38851 Ship Engineer: Rui Strauss DO MCH (RBC) [Entitic mass] 32.8 pg Normal 26-34 [facility] Comment on above: Performed By: #### C DP, BMP #### [facility] [address] [place] [address] 50035 Ship Engineer: Rui Strauss DO MCHC (RBC) [Mass/Vol] 34.0 g/dL Normal 31-37 [facility] Comment on above: Performed By: #### C DP, BMP #### [facility] [address] [place] [address] 58946 Ship Engineer: Rui Strauss DO MCV (RBC) [Entitic vol] 96.3 fL Normal 80-100 [facility] Comment on above: Performed By: #### C DP, BMP #### [facility] [address] [place] [address] 55899 Ship Engineer: Rui Strauss DO Monocytes (Bld) [#/Vol] 0.80 10*3/uL Normal 0.1-1.3 [facility] Comment on above: Performed By: #### C DP, BMP #### [facility] [address] [place] [address] Ship Engineer: Rui Strauss DO Monocytes/100 WBC (Bld) 10 % High 1-7 [facility] Comment on above: Performed By: #### C DP, BMP #### [facility] [address] [place] [address] Ship Engineer: Rui Strauss DO Neutrophil (Seg) 61 % Normal 36-66 [facility] Comment on above: Performed By: #### C DP, BMP #### [facility] [place] [facility] [place] [address] Ship Engineer: Rui Strauss DO Platelet mean volume (Bld) [Entitic vol] 6.5 fL Normal 6.0-12.0 [facility] Comment on above: Performed By: #### C DP, BMP #### [facility] [address] [address] [place] [address] Ship Engineer: Rui Strauss DO Platelets (Bld) [#/Vol] 299 10*3/uL Normal 150-450 [facility] Comment on above: Performed By: #### C DP, BMP #### [facility] [address] [facility] [place] [address] Ship Engineer: Rui Strauss DO RBC (Bld) [#/Vol] 4.28 10*6/uL Normal 4.0-5.2 [facility] Comment on above: Performed By: #### C DP, BMP #### [facility] [address] [place] [address] Ship Engineer: Rui Strauss DO WBC (Bld) [#/Vol] 7.3 10*3/uL Normal 3.5-11.0 [facility] Comment on above: Performed By: #### C DP, BMP #### [facility] [address] [place] [address] 80014 Ship Engineer: Rui Strauss DO Abs.Imm.Granulocyte NOT REPORTED Normal 0.00-0.30 [facility] Comment on above: Performed By: #### C DP, BMP #### [facility] [address] [place] [address] 17705 Ship Engineer: Rui Strauss DO Auto Diff Performed NOT REPORTED Normal [facility] Comment on above: Performed By: #### C DP, BMP #### [facility] [address] [place] [address] Ship Engineer: Rui Strauss DO Immature Granulocyte NOT REPORTED Normal 0 [facility] Comment on above: Performed By: #### C DP, BMP #### [facility] [address] [place] [address] 40742 Ship Engineer: Rui Strauss DO NRBC Automated NOT REPORTED Normal [facility] Comment on above: Performed By: #### C DP, BMP #### [facility] [address] [place] [address] 46206 Ship Engineer: Rui Strauss DO Platelet Estimate NOT REPORTED Normal [facility] Comment on above: Performed By: #### C DP, BMP #### [facility] [address] [place] [address] 07252 Ship Engineer: Rui Strauss DO RBC morphology finding Nom (Bld) NOT REPORTED Normal [facility] Comment on above: Performed By: #### C DP, BMP #### [facility] [address] [place] [address] [place] [address] Ship Engineer: Rui Strauss DO WBC Morphology NOT REPORTED Normal [facility] Comment on above: Performed By: #### C DP, BMP #### [facility] [address] [place] [address] Ship Engineer: Rui Strauss DO MRSA, DNA, Nasalon 0 Specimen Description .NASAL SWAB Normal [facility] Comment on above: Performed By: #### M RSANO #### [facility] [address] [place] [address] Ship Engineer: Rui Strauss DO [address] [address] Ship Engineer: Brody Remy MD Microscopic Urinalysison Amorphous, UA NOT REPORTED None [place], [place] Bacteria, UA FEW Abnormal None [facility], [place] Casts UA NOT REPORTED /LPF [place] Crystals, UA NOT REPORTED None /HPF [place] Epithelial Cells UA 2 TO 5 /HPF [place] Interpretation and review of laboratory results Abnormal [place] Mucus, UA NOT REPORTED None [place] Other Observations UA NOT REPORTED NOT REQ. M [facility], [place] RBC (U) [#/Vol] 0 TO 2 /HPF [place] Renal Epithelial, UA NOT REPORTED 0 /HPF [facility], [place] Trichomonas, UA NOT REPORTED None [place] WBC, UA 2 TO 5 /HPF [place] Yeast, UA NOT REPORTED None [place] - [facility], [place] Otheron 05-19-2020 Immature granulocytes (Bld) [#/Vol] NOT REPORTED [place] UA w/Reflex Cultureon 2019 Acetoacetic Acid,Ur Negative Normal NEG [facility] Comment on above: Performed By: #### U AX, UMICAO #### [facility] [address] [place] [address] Ship Engineer: Rui Strauss DO Bilirubin, SemiQt,Ur Negative Normal NEG [facility] Comment on above: Performed By: #### U AX UMYAMILKAO #### [facility] [address] [place] [address]90 Ship Engineer: Rui Strauss DO Color (U) YELLOW Normal YEL [facility] Comment on above: Performed By: #### U AXMICKIO #### [facility] [address] [place] [address] 65578 Ship Engineer: Rui Strauss DO Glucose Ql (U) Negative Normal NEG [facility] Comment on above: Performed By: #### MICKI ACO #### [facility] [address] [place] [address] 91902 Ship Engineer: Rui Strauss DO Hemoglobin, Ur Negative Normal NEG [facility] Comment on above: Performed By: #### U AXMICKIO #### [facility] [address] [place] [address] 03687 Ship Engineer: Rui Strauss DO Leukocyte esterase Test strip Ql (U) TRACE Abnormal NEG [facility] Comment on above: Performed By: #### U AX UMICAO #### [facility] [address] [place] [address] 28322 Ship Engineer: Rui Strauss DO Nitrite,Ur Negative Normal NEG [facility] Comment on above: Performed By: #### U AX UMICAO #### [facility] [address] [place] [address] 46848 Ship Engineer: Rui Strauss DO PH,Ur 6.5 Normal 5.0-8.0 [facility] Comment on above: Performed By: #### U AXKIRSTEN #### [facility] [address] [place] [address] Ship Engineer: Rui Strauss DO Protein Ql (U) Negative Normal NEG [facility] Comment on above: Performed By: #### KIRSTEN AC #### [facility] [address] [place] [address] Ship Engineer: Rui Strauss DO Spec. [place],Ur 1.011 Normal 1.000-1.030 [facility] Comment on above: Performed By: #### KIRSTEN AC #### [facility] [address] [place] [address] 08595 Ship Engineer: Rui Strauss DO Turbidity CLEAR Normal CLEAR [facility] Comment on above: Performed By: #### KIRSTEN AC #### [facility] [address] [place] [address] 76417 Ship Engineer: Rui Strauss DO Urobilinogen,Ur Normal Normal NORM [facility] Comment on above: Performed By: #### KIRSTEN AC #### [facility] [address] [place] [address] 78144 Ship Engineer: Rui Strauss DO Comment NOT REPORTED Normal [facility] Comment on above: Performed By: #### U KIRSTEN PAIGE #### [facility] [address] [place] [address] 79944 Ship Engineer: Rui Strauss DO Urinalysis Reflex to Culture on 05-19-2020 Bilirubin Urine Negative NEGATIVE [facility] [place], [place] Color, UA YELLOW YELLOW [facility] [place], [place] Glucose, Ur Negative NEGATIVE [facility] [place] Interpretation and review of laboratory results Abnormal [facility] [place] Ketones Ql (U) Negative NEGATIVE [facility] [place] Leukocyte esterase Test strip Ql (U) TRACE Abnormal NEGATIVE [facility], [place] Nitrite, Urine Negative NEGATIVE [facility], [place] pH, UA 6.5 [place] Protein (U) [Mass/Vol] Negative NEGATIVE [facility], [place] Specific [place], UA 1.011 [place], [place] Turbidity UA CLEAR CLEAR [place] Urinalysis Comments NOT REPORTED [place] Urine Hgb Negative NEGATIVE [place] Urobilinogen, Urine Normal Normal [place] Urinalysis,Microon 0 ----- Normal [facility] Comment on above: Performed By: #### KIRSTEN AC #### [facility] [address] [place] [address] 38033 Ship Engineer: Rui Strauss DO Bacteria FEW Abnormal NONE [facility] Comment on above: Performed By: #### KIRSTEN AC #### [facility] [address] [place] [address] 49034 Ship Engineer: Rui Strauss DO Epithelial cells LM Ql (Urine sed) 2 TO 5 Normal [facility] Comment on above: Performed By: #### KIRSTEN AC #### [facility] [address] [place] [address] 21782 Ship Engineer: Rui Strauss DO Urine RBC's 0 TO 2 Normal [facility] Comment on above: Performed By: #### KIRSTEN AC #### [facility] [address] [place] [address] 67894 Ship Engineer: Rui Strauss DO Urine WBC's 2 TO 5 Normal [facility] Comment on above: Performed By: #### KIRSTEN AC #### [facility] [address] [place] [address] 94032 Ship Engineer: Rui Strauss DO Amorphous sediment LM Ql (Urine sed) NOT REPORTED Normal NONE [facility] Comment on above: Performed By: #### U AX, UMICAO #### [facility] [address] [facility] [place] [address] Ship Engineer: Rui Strauss DO Casts NOT REPORTED Normal [facility] Comment on above: Performed By: #### U AX, UMICAO #### [facility] [address] [facility] [place] [address] Ship Engineer: Rui Strauss DO Crystals LM Nom (Urine sed) NOT REPORTED Normal NONE [facility] Comment on above: Performed By: #### U AX, UMICAO #### [facility] [address] [facility] [place] [address] Ship Engineer: Rui Strauss DO Epithelial, Renal NOT REPORTED Normal 0 [facility] Comment on above: Performed By: #### U AX, UMICAO #### [facility] [address] [facility] [place] [address] Ship Engineer: Rui Strauss DO Mucus Strands NOT REPORTED Normal NONE [facility] Comment on above: Performed By: #### U AX, UMICAO #### [facility] [address] [facility] [place] [address] Ship Engineer: Rui Strauss DO Other Observations NOT REPORTED Normal NREQ [facility] Comment on above: Performed By: #### U AX, UMICAO #### [facility] [address] [facility] [place] [address] Ship Engineer: Rui Strauss DO Trichomonas NOT REPORTED Normal NONE [facility] Comment on above: Performed By: #### U AX, UMICAO #### [facility] [address] [facility] [place] [address] Ship Engineer: Rui Strauss DO Yeast NOT REPORTED Normal NONE [facility] Comment on above: Performed By: #### KIRSTEN AC #### [facility] [address] [place] [address] Ship Engineer: Rui Strauss DO Vital Signs Date Time Vital Sign Value Performing Clinician Gabriele pena 02-15-2021 11:50-0400 Body height 152.4 cm [facility] [employer] Phone: 02-15-2021 11:50-0400 Body mass index (BMI) [Ratio] 31.25 kg/m2 [facility] [employer] Phone: 02-15-2021 11:50-0400 Body temperature 98.01 [degF] [facility] [employer] Phone: 02-15-2021 11:50-0400 Body weight 72.58 kg [facility] 1 [employer] Phone: 02-15-2021 11:50-0400 Diastolic blood pressure 61 mm[Hg] [facility] [employer] Phone: 02-15-2021 11:50-0400 Heart rate 66 /min [facility] [employer] Phone: 02-15-2021 11:50-0400 Respiratory rate 18 /min [facility] [employer] Phone: 02-15-2021 11:50-0400 SaO2% (BldA) [Mass fraction] 100 % [facility] [employer] Phone: 02-15-2021 11:50-0400 Systolic blood pressure 132 mm[Hg] [facility] [employer] Phone: 05-19-2020 13:09-0500 BMI (Body Mass Index) 33.59 kg/m2 [facility] 1 [employer] [facility], [place] 05-19-2020 13:09-0500 Body Temperature 98.8 [degF] [facility] 1 [facility] 05-19-2020 13:09-0500 Body weight 78.02 kg [facility] 1 [facility] , [place] 05-19-2020 13:09-0500 BP Diastolic 69 mm[Hg] [facility] 1 [facility] , [place] 05-19-2020 13:090500 BP Systolic 139 mm[Hg] [facility] 1 [facility] , [place] 05-19-2020 13:090500 Height 152.4 cm [facility] 1 [facility] , [place] 05-19-2020 13:09-0500 Pulse (Heart Rate) 70 /min [facility], [place] 05-19-2020 13:090500 Pulse Oximetry 95 % [facility] 1 [facility] , [place] 05-19-2020 13:09-0500 Respiratory Rate 20 /min [facility] Encounters Encounter Date Encounter Type Care Provider Facility Start: 10-12-2022 End: 10-13-[address] MARISEL GIBBS . Facility:[facility] Start: 09-27-2022 End: 09-28-[address] MARISEL GIBBS . Facility:[facility] Start: 09-14-2022 End: 09-15-[address] MARISEL GIBBS . Facility:[facility] Start: 08-30-2022 End: 08-31-[address] MARISEL GIBBS . Facility:[facility] Start: 07-20-[address] MARISEL GIBBS . Facili ty:[facility] Start: 06-01-2022 End: 06-01-2022 ambulatory AMBKIA PANDA Facility:[facility] Start: 05-07-2022 End: 05-07-2022 ambulatory MARCIA RIVAS Facility:[facility] Start: 03-22-2022 End: 03-23-[address] MARISEL GIBBS . Facility:[facility] Start: 03-09-2022 End: 03-10-[address] MARISEL GIBBS . Facility:[facility] Start: 01-03-2022 End: 01-03-[address] CHAZ SMITH Facility:[facility] Start: 02-15-2021 End: 02-20-2021 ambulatory CHANEL FUENTES [facility] Start: 02-15-2021 End: 02-19-2021 Subsequent hospital visit by physician Navjot Tello Rm 1 [facility] Pre-Admit Testing Start: 05-19-2020 End: 05-24-2020 ambulatory CHANEL FUENTES [facility] Start: 05-19-2020 End: 05-23-2020 Subsequent hospital visit by physician Navjot Tello Rm 1 [facility] Pre-Admit Testing Procedures Date Procedure Procedure Detail Performing Clinician Start: 02-15-2021 Urnls dip stick/tabl et rgnt auto w/o microscopy Taz Gan MD Work Phone: Start: 02-15-2021 End: 02-15-2021 Iadna s aureus methicillin resist amp probe tq Chanel Fuentes MD Work Phone: Start: 02-15-2021 Basic metabolic pane l calcium total Taz Gan MD Work Phone: Start: 02-15-2021 Ecg routine ecg w/le ast 12 lds i&r only Taz Gan MD Work Phone: Start: 05-19-2020 Urinalysis microscop ic only CHANEL FUENTES Start: 05-19-2020 Urnls dip stick/tabl et rgnt auto w/o microscopy CHANEL FUENTES Start: 05-19-2020 Ecg routine ecg w/le ast 12 lds w/i&r CHANEL FUENTES Start: 05-19-2020 EKG REPORT CHANEL WHITE RSE Start: 05-19-2020 Iadna s aureus methi cillin resist amp probe tq CHANEL FUENTES Start: 05-19-2020 Blood count complete auto&auto difrntl wbc CHANEL FUENTES Start: 05-19-2020 Urinalysis microscop ic only Evy Marco Work Phone: Start: 05-19-2020 Urnls dip stick/tabl et rgnt auto w/o microscopy Evy Lara Work Phone: Start: 05-19-2020 Ecg routine ecg w/le ast 12 lds i&r only Evy Lara Work Phone: Start: 05-19-2020 EKG REPORT Hpf Scanni ng Start: 05-19-2020 Iadna s aureus methi cillin resist amp probe tq Chanel Fuentes Work Phone: Start: 05-19-2020 Basic metabolic pane l calcium total Evy Lara Work Phone: Start: 05-19-2020 Blood count complete auto&auto difrntl wbc Evy Lara Work Phone: Plan of Treatment Date Care Activity Detail Author Start: 02-15-2022 [facility] Start: 02-15-2022 Potassium monitoring Potassium monit [facility] [employer] Work Phone: Start: 05-19-2021 Creatinine measurement Creatinine mo [place] Start: 05-19-2021 Potassium monitoring Potassium monit [place], [place] Start: 03-16-2021 Influenza vaccination Flu vaccine (# 1) [employer] Phone: Start: 03-16-2021 End: 03-16-2021 Patient encounter procedure 03/16/2021 Office Visit Orthopedic Surgery Chanel Fuentes MD [address] [address] [phone] [facility] Start: 03-01-2021 End: 03-01-2021 Admission to same day surgery center 03/01/2021 Surgery IP Unit Chanel Fuentes MD [address] [address] [phone] KNEE TOTAL ARTHROPLASTY [facility] Comment on above: KNEE TOTAL ARTHROPLA STY Start: 03-01-2021 Subsequent hospital visit by physician 03/01/2021 Hospital Encounter IP Unit Chanel Fuentes MD [address] [id number] [facility] Start: 06-16-2020 End: 06-16-2020 Office Visit 06/16/2020 Office Visit Orthopedic Surgery Chanel Fuentes MD [address] [address] [phone] [facility] Start: 06-01-2020 End: 06-01-2020 Hospital Encounter [facility] Comment on above: KNEE TOTAL ARTHROPLA [facility] Start: 05-28-2020 End: 05-28-2020 Appointment 05/28/2020 Appointment Pre-Admission Testing [facility] PRE-ADMIT TESTING Start: 03-29-2020 Annual Wellness Visi t (AWV) Annual Wellness Visit (AWV) [place] Start: 03-16-2020 Influenza vaccination Flu vaccine (# 1) [place] Start: 11-18-1998 Screening for osteoporosis DEXA (modify frequency per FRAX score) [place] Start: 11-18-1993 Shingles Vaccine (1 of 2) Shingles Vaccine (1 of 2) [place] Start: 11-18-1962 DTaP/Tdap/Td vaccine (1 - Tdap) DTaP/Tdap/Td vaccine (1 - Tdap) [place] Start: 11-18-1953 Lipid panel Lipid screen [place], [place] Start: 1945 Hepatitis C screening Hepatitis C sc reen [facility] Work Phone: Immunizations Immunization Date Immunization Notes Care Provider Fa anjum 05-13-2004 influenza virus vacc ine, unspecified formulation [facility] [place] Payers Date Payer Category Payer Medicare [id number] 1959 Private Health Insurance CLI [id number] 1959 Self-pay [id number] 1943 Unknown [id number] 2.16.8 [id number] 1943 Unknown [id number] 2.16.8 [id number] 1943 Unknown [id number] 2.16.84 [id number] 1943 Unknown [id number] 2.16.84 [id number] 1943 Unknown [id number] 2.16.84 [id number] 1943 Unknown [id number] 2.16.84 [id number] 1943 Unknown [id number] 2.16.84 [id number] 1943 Unknown [id number] 2.16.84 [id number] 1943 Unknown [id number] 2.16.84 [id number] 1943 Unknown [id number] 2.16.84 [id number] 1943 Unknown [id number] 2.16.84 [id number] 1943 Unknown [id number] 2.16.84 [id number] Social History Date Type Detail Facility Start: 05-19-2020 End: 02-15-2021 Tobacco smoking status NHIS Never smoker [place] Start: 05-19-2020 End: 02-15-2021 Tobacco use and exposure Never used [place], [place] Start: 05-19-2020 End: 02-15-2021 Alcohol intake Lifetime non-drinker (finding) [place] Start: 05-19-2020 History SDOH Alcohol Frequency 1 [place], [place] Start: 1945 Sex Assigned At Not on file [place] Exposure to SARS-CoV -2 (event) Not sure [place] Hospital Discharge instructions 02-15-2021 Instructions Note Date & Type Note Facility 02-15-2021 Hospital Discharg e instructions Renetta Vieyra RN - 02/15/2021 Pre-op Instructions For Out-Patient Surgery Medication Instructions: Please stop herbs and any supplements now (includes vitamins and minerals). Please contact your surgeon and prescribing physician for pre-op instructions for any blood thinners. Stop Aspirin as directed If you have inhalers/aerosol treatments at home, please use them the morning of your surgery and bring the inhalers with you to the hospital. Please take the following medications the morning of your surgery with a sip of water: Levothyroxine Surgery Instructions: 1. After midnight before surgery: Do not eat or drink anything, including water, mints, gum, and hard candy. You may brush your teeth without swallowing. No smoking, chewing tobacco, or street drugs. 2. Please shower or bathe before surgery. If you were given Surgical Scrub Chlorhexidine Gluconate Liquid (CHG), please shower the night before and the morning of your surgery following the detailed instructions you received during your pre-admission visit. 3. Please do not wear any cologne, lotion, powder, deodorant, jewelry, piercings, perfume, makeup, nail egyptian, hair accessories, or hair spray on the day of surgery. Wear loose comfortable clothing. 4. Leave your valuables at home. Bring a storage case for any glasses/contacts. 5. An adult who is responsible for you MUST drive you home and should be with you for the first 24 hours after surgery. 6. If having out-patient knee and foot surgeries, please arrange for planned crutches, walker, or wheelchair before arriving to the hospital. The Day of Surgery: Arrive at [facility] Surgery Entrance at the time directed by your surgeon and check in at the desk. If you have a living will or healthcare power of civil rights attorney, please bring a copy. You will be taken to the pre-op holding area where you will be prepared for surgery. A physical assessment will be performed by a nurse practitioner or housekeeper and laundry assistant. Your IV will be started and you will meet your anesthesiologist. When you go to surgery, your family will be directed to the surgical waiting room, where the doctor should speak with them after your surgery. After surgery, you will be taken to the recovery room then when you are awake and stable you will go to the short stay unit for preparation to be discharged. Only your one designated person is allowed to come to short stay for your discharge. If you use a Bi-PAP or C-PAP machine, please bring it with you and leave it in the car in case it is needed in recovery room. documented in this encounter [employer] Phone: History of Present illness Narrative 02-15-2021 Renetta Vieyra RN - 02/15/2021 11:30 AM EDT Note Date & Type Note Facility 02-15-2021 History of Present illness Narrative Dr. Gan, anesthesia, was contacted and informed of the patient's planned surgery, history, and unconfirmed abnormal EKG results from [facility] today [facility]. Also reviewed stress test and echo from 05/2020 from [facility]. Medical clearance required. Surgery scheduling will notify Dr. Fuentes's office who will be responsible for making sure the clearance is obtained and is in the chart for surgery. documented in this encounter [employer] Phone: Discharge Instructions * Instructions* Amelia Renee RN - 05/19/2020 Pre-op Instructions For Patient Being Admitted After Surgery Medication Instructions: Please stop herbs and any supplements now (includes vitamins and minerals). Please contact your surgeon and prescribing physician for pre-op instructions for any blood thinners. Stop Aspirin as per surgeon's instructions If you have inhalers/aerosol treatments at home, please use them the morning of your surgery and bring the inhalers with you to the hospital. Please take the following medications the morning of your surgery with a sip of water: Lisinopril, Levothyroxine, and Omeprazole Surgery Instructions: 1. After midnight before surgery: Do not eat or drink anything, including water, mints, gum, and hard candy. You may brush your teeth without swallowing. No smoking, chewing tobacco, or street drugs. 2. Please shower or bathe before surgery. If you were given Surgical Scrub Chlorhexidine Gluconate Liquid (CHG), please shower the night before and the morning of your surgery following the detailed instructions you received during your pre-admission visit. 3. Please do not wear any cologne, lotion, powder, deodorant, jewelry, piercings, perfume, makeup, nail egyptian, hair accessories, or hair spray on the day of surgery. Wear loose comfortable clothing. 4. Leave your valuables at home. Bring a storage case for any glasses/contacts. The Day of Surgery: Arrive at [facility] Surgery Entr[facility] at the time directed by your surgeon and check in at the desk. If you have a living will or healthcare power of civil rights attorney, please bring a copy. You will be taken to the pre-op holding area where you will be prepared for surgery. A physical assessment will be performed by a nurse practitioner or housekeeper and laundry assistant. Your IV will be started and you will meet your anesthesiologist. We are currently limiting visitors to only one designated person in the pre-op holding area. When you go to surgery, your family will be directed to the surgical waiting room, where the doctor shouldspeak with them after your surgery. You will be in the recovery room after surgery and taken to your room when you are stable. Please leave your suitcase in the car. Have your family member take it to your room after you are out of recovery. If you use a Bi-PAP or C-PAP machine, please bring it with you and leave it in the car until you are in your room. documented in this encounter History of Present Illness * Amelia Renee RN - 05/19/2020 3:[address] Lara, anesthesia, was contacted and informed of the patient's planned surgery, history, and unconfirmed abnormal EKG results from [facility] done today in [facility]. Medical clearance required. Surgery scheduling will notify Dr. Fuentes's office who will be responsible for making sure the clearance is obtained and is in the chart for surgery. 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 This clinical summary was aggregated from multiple sources. Caution should be exercised in using it in the provision of clinical care. This summary normalizes information from multiple sources, and as a consequence, information in this document may materially change the coding, format and clinical context of patient data. In addition, data may be omitted in some cases. CLINICAL DECISIONS SHOULD BE BASED ON THE PRIMARY CLINICAL RECORDS. [facility]. provides no warranty or guarantee of the accuracy or completeness of information in this document.
--- NOTE | 2024-01-31 09:56 | US_ITS ---
The [address] [address] Patient Name: JERRY FINNEY MRN: [id number] date: 1945 Sex: F Assigned Patient Location: Current Patient Location: [place] Accession/Order Number: [id number] Exam Date: 01/31/2024 10:00 Report Date: 01/31/2024 15:45 At the request of: MARISEL LEGER Procedure: US renal bladder EXAMINATION: US renal bladder HISTORY: Incontinence R32 COMPARISON: No relevant comparison available. TECHNIQUE: Ultrasound examination was performed of the kidneys and urinary bladder. FINDINGS: RIGHT KIDNEY: No evidence of pelvocaliectasis, mass, or calculi. Moderate cortical thinning, 7 mm. Normal renal cortical parenchymal echogenicity. Color Doppler demonstrates blood flow within the kidney. Kidney: 7.8 x 4.0 x 4.9 cm LEFT KIDNEY: No evidence of pelvocaliectasis, mass, or calculi. Moderate cortical thinning, 7 mm. Normal renal cortical parenchymal echogenicity. Color Doppler demonstrates blood flow within the kidney. Kidney: 8.3 x 4.3 x 5.2 cm BLADDER: No visible wall thickening, mass, or calculi. Prevoid volume: 73 mL. Post void residual: 4 mL URETERAL JETS: Visualized bilaterally. US/US renal bladder IMPRESSION: 1. Slightly limited evaluation due to patient cooperation. 2. Mild-moderate renal cortical thinning/atrophy; likely age related. 3. No appreciable stones, mass, or obstructive uropathy. 4. No significant postvoid residual within urinary bladder. Electronically authenticated by: SURYA MONTEMAYOR Date: 01/31/2024 15:45
== END 2024-01-31 09:49 | disposition home or self-care (01) ==
LOC: US 09:48
PROVIDERS: PCP Family Medicine; Visit Provider Family Medicine
DX: R32 Unspecified urinary incontinence (principal)
CPT/HCPCS: 76770

== ENCOUNTER 2024-02-14 10:08 | Outpatient (OUT) | payer MEDICARE, SELFPAY ==
--- NOTE | 2024-02-14 10:00 | CA_ITS ---
Patient Name: JERRY FINNEY MR#: [id number] : 1945 Exam Date: 02/14/2024 Ordering Doctor: DR Pio Gibbs . ECHOCARDIOGRAM REPORT PROCEDURE: CA ECHO DOPPLER COMPLETE INDICATIONS: Edema, fatigue COMPARISON: None. DESCRIPTION: COMPLETE ECHOCARDIOGRAM Real-time transthoracic echocardiography with 2D, M-mode, spectral and color flow Doppler performed. QUALITY: Technical quality was good. LEFT VENTRICLE: Normal chamber size. Mild left ventricular hypertrophy. LV EF: Global left ventricular systolic function is normal; visually estimated ejection fraction is 60 to 65%. Unable to assess regional wall motion abnormality; consider contrast study for better delineation of endocardial borders DIASTOLIC: Normal diastolic function. ATRIAL SEPTUM: Visually appears intact. LEFT ATRIUM: Normal chamber size. RIGHT ATRIUM: Normal chamber size. RIGHT VENTRICLE: Normal chamber size. Normal right ventricular systolic function. TRICUSPID VALVE: Normal mobility and thickness. No stenosis with no regurgitation. Unable to assess right-sided pressures due to lack of measurable tricuspid regurgitation. MITRAL VALVE: Normal mobility and thickness. No evidence of mitral valve stenosis. There is no mitral annular calcification. No mitral regurgitation. AORTIC VALVE: Normal trileaflet appearance. No visible sclerosis. Normal leaflet mobility. No evidence of aortic valve stenosis. No aortic regurgitation. AORTIC ROOT: Normal diameter and appearance. PULMONIC VALVE: Normal thickness and mobility. No stenosis. No regurgitation. PERICARDIUM: No evidence of pericardial effusion. IVC: IVC is normal in size, does not fully collapse. PLEURA: CONCLUSION: 1. Global left ventricular systolic function is normal; visually estimated ejection fraction is 60 to 65% 2. Normal right ventricular size and systolic function 3. Mild left ventricular hypertrophy 4. Normal diastolic function 5. No significant valvular abnormalities Adult Echocardiography Procedure Report Left Ventricle LVEDD (3.7 - 5.6 cm): 4.67 cm LVESD (2.2 - 4.0 cm): 3.03 cm LVIVS thickness (0.6 - 1.2 cm): 1.05 cm LVPW thickness (0.5 - 1.0 cm): 1.16 cm e': 0.11 m/s E - e': 7.41 LVOT Max Gradient: 2.42 mm[Hg] LVOT Area (cm2): 0.78 m/s Peak Velocity (LVOT): 0.78 m/s Mean Velocity (LVOT): 0.50 m/s LVOT Diameter 2.23 cm Left Atrium LA Volume Index (2D A2C): 30.72 ml/m2 Left Atrium Systolic Dimension: 3.81 cm Mitral Valve MV E to A Ratio: 1 Mitral Valve A-Wave Peak Velocity: 0.79 m/s Mitral Valve E-Wave Peak Velocity: 0.79 m/s Right Ventricle Aorta AO Root Diam: 3.10 cm Ascending Ao Diam: 2.79 cm Aortic Valve AoV Area (Peak [place]): 2.45 cm2, 2.45 cm2 AoV Area (VTI): 2.67 cm2, 2.67 cm2 Peak Velocity(Antegrade Flow): 1.24 m/s Peak Gradient(Antegrade Flow): 6.20 mm[Hg] Mean Velocity(Antegrade Flow): 0.80 m/s Mean Gradient(Antegrade Flow): 2.99 mm[Hg] Velocity Time Integral: 27.57 cm Tricuspid Valve Pulmonic Valve Mean Gradient: 1.62 mm[Hg] Mean Velocity: 0.60 m/s Peak Velocity: 0.89 m/s, 0.98 m/s Peak Gradient: 3.80 mm[Hg], 3.14 mm[Hg] Right Atrium Right Atrium Systolic Pressure: 37.69 ml, 37.69 ml Dictated by: Hollie Mckeon M.D. on 02/15/2024 at 09:36 Approved by: Hollie Mckeon M.D. on 02/15/2024 at 09:38
== END 2024-02-14 10:09 | disposition home or self-care (01) ==
LOC: CARD 10:09
PROVIDERS: PCP Family Medicine; Visit Provider Family Medicine
DX: R53.83 Other fatigue (principal); R60.9 Edema, unspecified; R60.0 Localized edema
CPT/HCPCS: 93306

== ENCOUNTER 2024-03-04 12:15 | Outpatient (OUT) | payer MEDICARE, SELFPAY ==
--- NOTE | 2024-03-04 12:24 | US_ITS ---
The [address] [address] Patient Name: JERRY FINNEY MRN: [id number] date: 1945 Sex: F Assigned Patient Location: [facility] Current Patient Location: [facility] Accession/Order Number: [id number] Exam Date: 03/04/2024 12:30 Report Date: 03/04/2024 14:16 At the request of: MARISEL LEGER Procedure: US venous doppler LE RT CLINICAL DATA: Leg pain. Swelling. PROCEDURE: Right lower extremity venous duplex ultrasound. TECHNIQUE: Bauman scale, color flow, and waveform spectral analysis was performed of the right lower extremity. FINDINGS: The right common femoral, profunda femoral, femoral, and popliteal veins were compressible. The saphenous vein was compressible. No venous thrombosis was seen. The veins fill with color Doppler. Augmentation was normal. There was limited visualization of the posterior tibial vein. US/US venous doppler LE RT IMPRESSION: 1. No acute lower extremity deep venous thrombosis. 2. No superficial venous thrombosis. Electronically authenticated by: Jaja CERVANTES Date: 03/04/2024 14:16
--- OUTSIDE RECORDS SUMMARY | 2024-03-04 12:27 | XMS_ITS | CCD ---
Author Organization [facility] [employer]ini[employer] Care Team Providers Care Overnight Caregiver Name Role Phone Marisel Gibbs Primary Care [...] (antibiotic) (1 source) cefTRIAXone Drug Allergy 0 [facility] Diclofenac / miSOPROStol (1 source) Diclofenac / miSOPROStol Drug Allergy 0 [facility] Penicillins (antibiotic) (1 source) Penicillins Drug Allergy 2 [facility] (1 source) cefTRIAXone Drug Allergy 0 [place], [place] (1 source) Diclofenac / miSOPROStol Drug Allergy 0 [place], [place] (1 source) Penicillins Propensity to adverse reactions to drug 2 [place], [place] (2 sources) Iodides Propensity to adverse reactions to drug 0 [place], [place] (2 sources) cefTRIAXone Drug Allergy 5 [facility] Repository (1 source) Diclofenac / miSOPROStol Drug Allergy 3 [facility] Rep[facility] (2 sources) Iodine (And Iodine Containting Drugs) Drug allergy (disorder) 4 [facility] (2 sources) Penicillin Drug Allergy [facility] Medications Current Medications Medication Drug Class(es) [...] Onset: 06-01-2022 Episodic Other aftercare (1 source) correction (current) use of aspirin; Translations: [JAIL CURRENT USE OF ASPIRIN] Onset: 06-05-2022 Episodic Other aftercare (1 source) 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 Admission #: [id number] Family : Order #: [id number] CLICK HERE TO VIEW EXAM RADIOLOGY REPORT [...] QUALITY OF STUDY: Good. PERFUSION DEFECT: LOCATION: [place]. SIZE: Small (1-2 segments). SEVERITY: Mild. TYPE: [...] Chadwick MD on 09/28/2022 at 09:20 Normal [facility] ECHOCARDIO M/2D COMPLETEon 0 09-14-2022 ECHOCARDIO M/2D COMPLETE Patient: JERRY FINNEY Exam Date: 09/14/2022 : 1945 Gender:F Ordering : DR MARISEL GIBBS . Admission #: [id number] Family : Order #: [id number] CLICK HERE TO VIEW EXAM ECHOCARDIOGRAM REPORT [...] Klein M.D. on 09/14/2022 at 14:51 Normal [facility] MG MAMM SCREEN 3D MONCHO CADon 09-14-2022 MG MAMM SCREEN 3D MONCHO CAD Patient: JERRY FINNEY Exam Date: 09/14/2022 : 1945 Gender:F Ordering : DR MARISEL GIBBS . Admission #: [id number] Family : Order #: [id number] CLICK HERE TO VIEW EXAM RADIOLOGY REPORT [...] breast cancer at age 63. LOCATION: [facility] BREAST COMPOSITION: Heterogeneously dense,which may obscure small [...] MD on 09/14/2022 at 12:04 Normal [facility] BNPon 08-30-2022 Natriuretic peptide B (Bld) [Mass/Vol] 284.0 pg/mL Normal <=1,800.0 [facility] Comment on above: Performed By: #### L IPID, CMP, BNP, TSH, T7 #### [facility] [address] [address] [address] Rito Madison CBC AUTO DIFFon 08-30-2022 BASO # 0.0 103/ul Normal 0.0-0.1 [facility] Comment on above: Performed By: #### C BC ####[facility] [address] [id number]. Rito Madison Basophils/100 WBC (Bld) 0.4 % Normal 0.2-2.0 [facility] Comment on above: Performed By: #### C BC ####[facility] [address] [id number]. Rito Madison EO # 0.1 103/ul Normal 0.0-0.7 [facility] Comment on above: Performed By: #### C BC ####[facility] [address] [address]Dr. Rito Madison Eosinophils/100 WBC (Bld) 1.3 % Normal 0.9-7.0 [facility] Comment on above: Performed By: #### C BC ####[facility] [address] [place], [place] [address]Dr. Rito Madison Erythrocyte distribution width (RBC) [Ratio] 14.5 % Normal 11.0-15.0 [facility] Comment on above: Performed By: #### C BC ####[facility] [address] [place], [place] [id number]. Rito Madison Hematocrit (Bld) [Volume fraction] 43.7 % Normal 36.0-48.0 [facility] Comment on above: Performed By: #### C BC ####[facility] [address] [place], [place] [id number]. Rito Madison Hemoglobin (Bld) [Mass/Vol] 14.2 g/dL Normal 12.0-16.0 [facility] Comment on above: Performed By: #### C BC ####[facility] [address] [address]Dr. Rito Madison IG # 0.02 10e3/ul Normal 0.00-0.03 [facility] Comment on above: Performed By: #### C BC ####[facility] [address] [place], [place] [address]Dr. Rito Madison IG % 0.3 % Normal 0.0-0.5 [facility] Comment on above: Performed By: #### C BC ####[facility] [address] [id number]. Rito Madison LYMPH # 1.8 103/ul Normal 1.2-3.8 [facility] Comment on above: Performed By: #### C BC ####[facility] [address] [id number]. Rito Madison Lymphocytes/100 WBC (Bld) 22.9 % Normal 20.5-60.0 [facility] Comment on above: Performed By: #### C BC ####[facility] [address] [id number]. Rito Los MANUAL DIFF REQ NO Normal [facility] Comment on above: Performed By: #### C BC ####[facility] [address] [address]Dr. Rito Los MCH (RBC) [Entitic mass] 28.7 pg Normal 26.7-34.0 [facility] Comment on above: Performed By: #### C BC ####[facility] [address] [address]Dr. Rito Madison MCHC (RBC) [Mass/Vol] 32.5 g/dL Normal 29.9-35.2 [facility] Comment on above: Performed By: #### C BC ####[facility] [address] [id number]. Rito Los MCV (RBC) [Entitic vol] 88.5 fL Normal 81.0-99.0 [facility] Comment on above: Performed By: #### C BC ####[facility] [address] [id number]. Rito Los MONO # 0.5 103/ul Normal 0.3-0.8 [facility] Comment on above: Performed By: #### C BC ####[facility] [address] [address]Dr. Rito Los Monocytes/100 WBC (Bld) 6.4 % Normal 1.7-12.0 [facility] Comment on above: Performed By: #### C BC ####[facility] [address] [place], [place] [address]Gn. Rito Madison NEUT # 5.4 103/ul Normal 1.4-6.5 [facility] Comment on above: Performed By: #### C BC ####[facility] [address] [id number]. Rito Los Neutrophils/100 WBC (Bld) 68.7 % Normal 43.0-75.0 [facility] Comment on above: Performed By: #### C BC ####[facility] [address] [id number]. Rito Madison Platelet mean volume (Bld) [Entitic vol] 8.2 fL Critically low 9.5-13.5 [facility] Comment on above: Performed By: #### C BC ####[facility] [address] [id number]. Rito Madison PLT 238 103/ul Normal 150-450 [facility] Comment on above: Performed By: #### C BC ####[facility] [address]bi[address] [id number]. Yolyjayda Madison RBC 4.94 106/ul Normal 4.20-5.40 [facility] Comment on above: Performed By: #### C BC ####[facility] [address] [id number]. Rito Los WBC 7.8 103/ul Normal 4.0-11.0 [facility] Comment on above: Performed By: #### C BC ####[facility] [address] [id number] Yolyjayda Madison FREE THYROXINE INDEX T7on FTI 2.88 Normal 1.30-4.50 [facility] Comment on above: Performed By: #### L IPID, CMP, BNP, TSH, T7 #### [facility] [address] [place], [place] [address] Dr. Rito Madison T3U 36.0 % Normal 30.0-39.0 [facility] Comment on above: Performed By: #### L IPID, CMP, BNP, TSH, T7 #### [facility] [address] [address] [address] Rito Madison T4 [Mass/Vol] 8.00 ug/dL Normal 4.80-13.90 [facility] Comment on above: Performed By: #### L IPID, CMP, BNP, TSH, T7 #### [facility] [address] [address] [address] Rito Madison GLYCOHEMOGLOBIN A1Con 2022 ADA RECOMMENDATION SEE BELOW Normal [facility] Comment on above: Result Comment: ADA RECOMMENDED LIMIT 4.0 - 6.0 ADA THERAPEUTIC TARGET < 7.0 ACTION SUGGESTED > 7.0 Performed By: #### A 1C #### [facility] [address] [place] [address] Dr. Rito Madison Glucose [Mass/Vol] 111 mg/dL Normal [facility] Comment on above: Performed By: #### A 1C #### [facility] [address] [place] [address] Dr. Rito Madison HbA1c (Bld) [Mass fraction] 5.5 % Normal 4.5-6.2 [facility] Comment on above: Performed By: #### A 1C #### [facility] [address] [place] [address] Dr. Rito Madison IRONon 08-30-2022 Iron [Mass/Vol] 125.0 ug/dL Normal 50.0-170.0 [facility] Comment on above: Performed By: #### I VINAYAK ####[facility] [address] [address]Dr. Rito Madison LIPID PROFILEon 08-30-2022 CHOL-HDL RATIO NORM SEE BELOW Normal [facility] Comment on above: Result Comment: 3.3 - 4.4 LOW RISK 4.4 - 7.1 AVERAGE RISK 7.1 - 11.0 MODERATE RISK >11.0 HIGH RISK Performed By: #### L IPID, CMP, BNP, TSH, T7 #### [facility] [address] [address] [address] Rito Madison Cholesterol [Mass/Vol] 203 mg/dL Critically high <=200 [facility] Comment on above: Performed By: #### L IPID, CMP, BNP, TSH, T7 #### [facility] [address] [address] [address] Rito Madison Cholesterol in HDL [Mass/Vol] 79 mg/dL Critically high 40-60 [facility] Comment on above: Performed By: #### L IPID, CMP, BNP, TSH, T7 #### [facility] [address] [address] [address] Rito Madison Cholesterol in LDL [Mass/Vol] 108.6 mg/dL Normal [facility] Comment on above: Performed By: #### L IPID, CMP, BNP, TSH, T7 #### [facility] [address] [place] [address] Dr. Rito Madison Cholesterol.total/Vivian sterol in HDL [Mass ratio] 2.6 {ratio} Normal [facility] Comment on above: Performed By: #### L IPID, CMP, BNP, TSH, T7 #### [facility] [address] [address] [address] Rito Madison HDL NORMAL > or = 60 mg/dl - LO W CARDIOVASCULAR RISK <40 mg/dl - HIGH CARDIOVASCULAR RISK Normal [facility] Comment on above: Performed By: #### L IPID, CMP, BNP, TSH, T7 #### [facility] [address] [address] [address] Rito Madison LDL CALC NORMAL SEE BELOW Normal [facility] Comment on above: Result Comment: <100 mg/dl OPTIMAL 100 - 129 mg/dl NEAR OR ABOVE OPTIMAL 130 - 159 mg/dl BORDERLINE HIGH 160 - 189 mg/dl HIGH >190 mg/dl VERY HIGH Performed By: #### L IPID, CMP, BNP, TSH, T7 #### [facility] [address] [address] [address] Rito Madison Triglyceride [Mass/Vol] 77 mg/dL Normal <=150 [facility] Comment on above: Performed By: #### L IPID, CMP, BNP, TSH, T7 #### [facility] [address] [address] [address] Rito Madison VLDL CALC 15.4 mg/dL Normal [facility] Comment on above: Performed By: #### L IPID, CMP, BNP, TSH, T7 #### [facility] [address] [place] [address] Dr. Rito Madison PROF 14(COMP METB)on 023 Albumin [Mass/Vol] 3.6 g/dL Normal 3.4-5.0 [facility] Comment on above: Performed By: #### L IPID, CMP, BNP, TSH, T7 #### [facility] [address] [place] [address] Dr. Rito Madison Albumin/Globulin [Mass ratio] 1.0 {ratio} Normal [facility] Comment on above: Performed By: #### L IPID, CMP, BNP, TSH, T7 #### [facility] [address] [place] [address] Dr. Rito Madison ALP [Catalytic activity/Vol] 81 U/L Normal 46-116 [facility] Comment on above: Performed By: #### L IPID, CMP, BNP, TSH, T7 #### [facility] [address] [place] [address] Dr. Rito Madison ALT [Catalytic activity/Vol] 49 U/L Normal 14-59 [facility] Comment on above: Performed By: #### L IPID, CMP, BNP, TSH, T7 #### [facility] [address] [place] [address] Dr. Rito Madison Anion gap [Moles/Vol] 12.6 mmol/L Normal [facility] Comment on above: Performed By: #### L IPID, CMP, BNP, TSH, T7 #### [facility] [address] [place] [address] Dr. Rito Madison AST [Catalytic activity/Vol] 32 U/L Normal 15-37 [facility] Comment on above: Performed By: #### L IPID, CMP, BNP, TSH, T7 #### [facility] [address] [place] [address] Dr. Rito Madison Bilirubin [Mass/Vol] 0.7 mg/dL Normal 0.2-1.0 [facility] Comment on above: Performed By: #### L IPID, CMP, BNP, TSH, T7 #### [facility] [address] [place] [address] Dr. Rito Madison Calcium [Mass/Vol] 9.3 mg/dL Normal 8.5-10.1 [facility] Comment on above: Performed By: #### L IPID, CMP, BNP, TSH, T7 #### [facility] [address] [place] [address] Dr. Rito Madison Chloride [Moles/Vol] 103 mmol/L Normal 98-107 [facility] Comment on above: Performed By: #### L IPID, CMP, BNP, TSH, T7 #### [facility] [address] [place] [address] Dr. Rito Madison CO2 [Moles/Vol] 29.5 mmol/L Normal 21.0-32.0 [facility] Comment on above: Performed By: #### L IPID, CMP, BNP, TSH, T7 #### [facility] [address] [place] [address] Dr. Rito Madison Creatinine [Mass/Vol] 0.79 mg/dL Normal 0.55-1.02 [facility] Comment on above: Performed By: #### L IPID, CMP, BNP, TSH, T7 #### [facility] [address] [place] [address] Dr. Rito Madison EGFR-AF GHANAIAN >60 Normal >=60 [facility] Comment on above: Performed By: #### L IPID, CMP, BNP, TSH, T7 #### [facility] [address] [place] [address] Dr. Rito Madison EGFR-NON AF GHANAIAN >60 Normal >=60 [facility] Comment on above: Performed By: #### L IPID, CMP, BNP, TSH, T7 #### [facility] [address] [place] [address] Dr. Rito Madison Globulin (S) [Mass/Vol] 3.6 g/dL Normal T [facility] Comment on above: Performed By: #### L IPID, CMP, BNP, TSH, T7 #### [facility] [address] [address] [address] Rito Madison Glucose [Mass/Vol] 88 mg/dL Normal 74-106 [facility] Comment on above: Performed By: #### L IPID, CMP, BNP, TSH, T7 #### [facility] [address] [place] [address] Dr. Rito Madison Potassium [Moles/Vol] 4.1 mmol/L Normal 3.5-5.1 [facility] Comment on above: Performed By: #### L IPID, CMP, BNP, TSH, T7 #### [facility] [address] [place] [address] Dr. Rito Madison Protein [Mass/Vol] 7.2 g/dL Normal 6.4-8.2 [facility] Comment on above: Performed By: #### L IPID, CMP, BNP, TSH, T7 #### [facility] [address] [place] [address] Dr. Rito Madison Sodium [Moles/Vol] 141 mmol/L Normal 136-145 [facility] Comment on above: Performed By: #### L IPID, CMP, BNP, TSH, T7 #### [facility] [address] [place] [address] Dr. Rito Madison Urea nitrogen [Mass/Vol] 17.0 mg/dL Normal 7.0-18.0 [facility] Comment on above: Performed By: #### L IPID, CMP, BNP, TSH, T7 #### [facility] [address] [place] [address] Dr. Rito Madison Urea nitrogen/Creatinine [Mass ratio] 21.5 mg/mg Normal [facility] Comment on above: Performed By: #### L IPID, CMP, BNP, TSH, T7 #### [facility] [address] [place] [address] Dr. Rito Madison TSHon 08-30-2022 TSH 4.464 uIU/mL Critically high 0.358-3.740 [facility] Comment on above: Performed By: #### L IPID, CMP, BNP, TSH, T7 #### [facility] [address] [place], [place] [address] Dr. Rito Madison CBC AUTO DIFFon 06-01-2022 BASO # 0.0 103/ul Normal 0.0-0.1 [facility] Comment on above: Performed By: #### C BC ####[facility] [address] [place] [id number] Madison Basophils/100 WBC (Bld) 0.2 % Normal 0.2-2.0 [facility] Comment on above: Performed By: #### C BC ####[facility] [address] [address]DrAntonietta Madison EO # 0.1 103/ul Normal 0.0-0.7 [facility] Comment on above: Performed By: #### C BC ####[facility] [address] [address]DrAntonietta Madison Eosinophils/100 WBC (Bld) 1.5 % Normal 0.9-7.0 [facility] Comment on above: Performed By: #### C BC ####[facility] [address] [address]DrAntonietta Madison Erythrocyte distribution width (RBC) [Ratio] 12.9 % Normal 11.0-15.0 [facility] Comment on above: Performed By: #### C BC ####[facility] [address] [place] [id number] Madison Hematocrit (Bld) [Volume fraction] 44.4 % Normal 36.0-48.0 [facility] Comment on above: Performed By: #### C BC ####[facility] [address] [id number] Madison Hemoglobin (Bld) [Mass/Vol] 14.7 g/dL Normal 12.0-16.0 [facility] Comment on above: Performed By: #### C BC ####[facility] [address] [address]DrAntonietta Madison IG # 0.03 10e3/ul Normal 0.00-0.03 [facility] Comment on above: Performed By: #### C BC ####[facility] [address]vb[address]fe[address] [address]Dr. Rito Madison IG % 0.3 % Normal 0.0-0.5 [facility] Comment on above: Performed By: #### C BC ####[facility] [address] [address]Dr. Yolyjayda Madison LYMPH # 1.7 103/ul Normal 1.2-3.8 [facility] Comment on above: Performed By: #### C BC ####[facility] [address] [place] [address]Dr. Yolyjayda Madison Lymphocytes/100 WBC (Bld) 19.5 % Critically low 20.5-60.0 [facility] Comment on above: Performed By: #### C BC ####[facility] [address] [place], [place] [address]Dr. Rito Madison MANUAL DIFF REQ NO Normal [facility] Comment on above: Performed By: #### C BC ####[facility] [address] [place], [place] [address]Dr. Yolyjayda Madison MCH (RBC) [Entitic mass] 28.3 pg Normal 26.7-34.0 [facility] Comment on above: Performed By: #### C BC ####[facility] [address] [address]Dr. Yolyjayda Madison MCHC (RBC) [Mass/Vol] 33.1 g/dL Normal 29.9-35.2 [facility] Comment on above: Performed By: #### C BC ####[facility] [address] [place], [place] [address]Dr. Yolyjayda Madison MCV (RBC) [Entitic vol] 85.4 fL Normal 81.0-99.0 [facility] Comment on above: Performed By: #### C BC ####[facility] [address] [place], [place] [address]Dr. Rito Madsion MONO # 0.7 103/ul Normal 0.3-0.8 [facility] Comment on above: Performed By: #### C BC ####[facility] [address] [place] [id number]. Rito Madison Monocytes/100 WBC (Bld) 8.3 % Normal 1.7-12.0 [facility] Comment on above: Performed By: #### C BC ####[facility] [address] [place] [id number]. Rito Madison NEUT # 6.3 103/ul Normal 1.4-6.5 [facility] Comment on above: Performed By: #### C BC ####[facility] [address] [address]Dr. Rito Madison Neutrophils/100 WBC (Bld) 70.2 % Normal 43.0-75.0 [facility] Comment on above: Performed By: #### C BC ####[facility] [address] [address]Dr. Rito Madison Platelet mean volume (Bld) [Entitic vol] 8.4 fL Critically low 9.5-13.5 [facility] Comment on above: Performed By: #### C BC ####[facility] [address] [place], [place] [address]Dr. Rito Madison PLT 295 103/ul Normal 150-450 [facility] Comment on above: Performed By: #### C BC ####[facility] [address] [address]Dr. Rito Madison RBC 5.20 106/ul Normal 4.20-5.40 [facility] Comment on above: Performed By: #### C BC ####[facility] [address] [id number]. Rito Madison WBC 8.9 103/ul Normal 4.0-11.0 [facility] Comment on above: Performed By: #### C BC ####[facility] [address] [address]DrAntonietta Rito Madison PROF CHEM 8 (BAS METB)on Anion gap [Moles/Vol] 9.8 mmol/L Normal [facility] Comment on above: Performed By: #### B MP #### [facility] [address] [address] [address] Rito Madison Calcium [Mass/Vol] 9.2 mg/dL Normal 8.5-10.1 [facility] Comment on above: Performed By: #### B MP #### [facility] [address] [address] [address] Rito Madison Chloride [Moles/Vol] 103 mmol/L Normal 98-107 [facility] Comment on above: Performed By: #### B MP #### [facility] [address] [address] [address] Rito Madison CO2 [Moles/Vol] 25.8 mmol/L Normal 21.0-32.0 [facility] Comment on above: Performed By: #### B MP #### [facility] [address] [address] [address] Rito Madison Creatinine [Mass/Vol] 0.86 mg/dL Normal 0.55-1.02 [facility] Comment on above: Performed By: #### B MP #### [facility] [address] [address] [address] Rito Madison EGFR-AF GHANAIAN >60 Normal >=60 [facility] Comment on above: Performed By: #### B MP #### [facility] [address] [address] [address] Rito Madison EGFR-NON AF GHANAIAN >60 Normal >=60 [facility] Comment on above: Performed By: #### B MP #### [facility] [address] [address] [address] Rito Madison Glucose [Mass/Vol] 109 mg/dL Critically high 74-106 [facility] Comment on above: Performed By: #### B MP #### [facility] [address] [address] [address] Rito Madison Potassium [Moles/Vol] 3.6 mmol/L Normal 3.5-5.1 [facility] Comment on above: Performed By: #### B MP #### [facility] [address] [address] [address] Rito Madison Sodium [Moles/Vol] 135 mmol/L Critically low 136-145 [facility] Comment on above: Performed By: #### B MP #### [facility] [address] [address] [address] Rito Madison Urea nitrogen [Mass/Vol] 14.0 mg/dL Normal 7.0-18.0 [facility] Comment on above: Performed By: #### B MP #### [facility] [address] [address] [address] Rito Madison Urea nitrogen/Creatinine [Mass ratio] 16.3 mg/mg Normal [facility] Comment on above: Performed By: #### B MP #### [facility] [address] [place] [address] Dr. Rito Madison AMYLASEon 05-07-2022 Amylase [Catalytic activity/Vol] 82 U/L Normal 25-115 [facility] Comment on above: Performed By: #### L IPA, CMP, TRINY ####[facility] [address] [address]Dr. Rtio Madison CBC AUTO DIFFon 05-07-2022 BASO # 0.0 103/ul Normal 0.0-0.1 [facility] Comment on above: Performed By: #### C BC ####[facility] [address] [address]Dr. Rito Madison Basophils/100 WBC (Bld) 0.4 % Normal 0.2-2.0 [facility] Comment on above: Performed By: #### C BC ####[facility] [address] [id number] Madison EO # 0.2 103/ul Normal 0.0-0.7 [facility] Comment on above: Performed By: #### C BC ####[facility] [address] [id number]. Rito Madison Eosinophils/100 WBC (Bld) 2.0 % Normal 0.9-7.0 [facility] Comment on above: Performed By: #### C BC ####[facility] [address] [address]Dr. Rito Madison Erythrocyte distribution width (RBC) [Ratio] 12.8 % Normal 11.0-15.0 [facility] Comment on above: Performed By: #### C BC ####[facility] [address] [address]Dr. Rito Madison Hematocrit (Bld) [Volume fraction] 42.7 % Normal 36.0-48.0 [facility] Comment on above: Performed By: #### C BC ####[facility] Ob[address] [place], [place] [address]Dr. Rito Madison Hemoglobin (Bld) [Mass/Vol] 14.2 g/dL Normal 12.0-16.0 [facility] Comment on above: Performed By: #### C BC ####[facility] [address] [place], [place] [address]Dr. Rito Madison IG # 0.03 10e3/ul Normal 0.00-0.03 [facility] Comment on above: Performed By: #### C BC ####[facility] [address] [place], [place] [address]Dr. Rito Madison IG % 0.4 % Normal 0.0-0.5 [facility] Comment on above: Performed By: #### C BC ####[facility] [address] [place], [place] [address]Dr. Rito Madison LYMPH # 2.2 103/ul Normal 1.2-3.8 [facility] Comment on above: Performed By: #### C BC ####[facility] Aw[address]sp[address] [place], [place] [address]Dr. Rito Madison Lymphocytes/100 WBC (Bld) 26.0 % Normal 20.5-60.0 [facility] Comment on above: Performed By: #### C BC ####[facility] [address] [address]Dr. Rito Madison MANUAL DIFF REQ NO Normal [facility] Comment on above: Performed By: #### C BC ####[facility] [address] [phone]. Rito Madison MCH (RBC) [Entitic mass] 29.2 pg Normal 26.7-34.0 [facility] Comment on above: Performed By: #### C BC ####[facility] [address] [address]Dr. Rito Madison MCHC (RBC) [Mass/Vol] 33.3 g/dL Normal 29.9-35.2 [facility] Comment on above: Performed By: #### C BC ####[facility] [address] [phone]. Rito Los MCV (RBC) [Entitic vol] 87.7 fL Normal 81.0-99.0 [facility] Comment on above: Performed By: #### C BC ####[facility] Lagjicrfl[address] [place], [place] [address]Dr. Rito Madison MONO # 0.8 103/ul Normal 0.3-0.8 [facility] Comment on above: Performed By: #### C BC ####[facility] [address] [address]Dr. Yolyjayda Madison Monocytes/100 WBC (Bld) 9.2 % Normal 1.7-12.0 [facility] Comment on above: Performed By: #### C BC ####[facility] [address] [place], [place] [address]Dr. Yolyjayda Madison NEUT # 5.3 103/ul Normal 1.4-6.5 [facility] Comment on above: Performed By: #### C BC ####[facility] [address] [place], [place] [address]Dr. Rito Madison Neutrophils/100 WBC (Bld) 62.0 % Normal 43.0-75.0 [facility] Comment on above: Performed By: #### C BC ####[facility] Oxkxt[address]jbx[address] [place], [place] [address]Dr. Rito Madison Platelet mean volume (Bld) [Entitic vol] 8.5 fL Critically low 9.5-13.5 [facility] Comment on above: Performed By: #### C BC ####[facility] [address] [place], [place] [address]Ze. Rito Madison PLT 291 103/ul Normal 150-450 [facility] Comment on above: Performed By: #### C BC ####[facility] [address]ovt[address] [place], [place] [address]Ye. Rito Madison RBC 4.87 106/ul Normal 4.20-5.40 [facility] Comment on above: Performed By: #### C BC ####[facility] Ft[address]jj[address] [place], [place] [address]Ej. Rito Madison WBC 8.5 103/ul Normal 4.0-11.0 [facility] Comment on above: Performed By: #### C BC ####[facility] Fsp[address]prqx[address] [place], [place] [address]L[address]. [address]ito [address] CT ABD/PELVIS WO CONon 05-07 [...] CATHRYN OATES Date: 2022-05-07 06:53 Normal [facility] CULTURE URINEon 05-07-2022 CULTURE URINE Culture Observations : No growth Normal [facility] Comment on above: Performed By: #### U RCX ####[facility] [address]dzp[address] [place], [place] [address]FmAntonietat MARINO URINE PROFILEon 2 Bilirubin Ql (U) Negative Normal NEGATIVE [facility] Comment on above: Performed By: #### E TAMMY SANTIZO ####[facility] [address]sp[address] [address]Dr. Rito Madison Clarity (U) CLEAR Normal CLEAR [facility] Comment on above: Performed By: #### RUBEN MARIERO ####[facility] [address]crbs[address] [place], [place] [address]Dr. Yolyjayda Madison Color (U) LT. YELLOW Normal YELLOW [facility] Comment on above: Performed By: #### RUBEN MARIERO ####[facility] [address]aztpaayj[address] [place], [place] [address]Dr. Yolyjayda Madison ERUAHD A micrscopic examination will be performed if indicated. Normal [facility] Comment on above: Performed By: #### RUBEN MARIERO ####[facility] Emlgydiaam[address] [place], [place] [address]Dr. Rito Madison Glucose Ql (U) Negative Normal NEGATIVE [facility] Comment on above: Performed By: #### MARV MARIEICRO ####[facility] Effcsypiam[address] [place], [place] [address]Dr. Yolyjayda Los Hemoglobin Ql (U) Negative Normal NEGATIVE [facility] Comment on above: Performed By: #### RUBEN MARIERO ####[facility] Xehmzvypus[address] [place], [place] [address]Dr. Rito Madison Ketones Ql (U) Negative Normal NEGATIVE [facility] Comment on above: Performed By: #### MARV MARIEICRO ####[facility] Nrpunfwtlt[address] [place], [place] [address]Dr. Rito Madison LEUKOCYTES MODERATE Abnormal NEGATIVE [facility] Comment on above: Performed By: #### MARV MARIEICRO ####[facility] Fvthpfpcic[address] [place], [place] [address]Dr. Rito Madison Nitrite Ql (U) Negative Normal NEGATIVE [facility] Comment on above: Performed By: #### Jatinder SANTIZO UMICRO ####[facility] Cvvblzxehe[address] [place], [place] [address]Dr. Rito Madison pH (U) 6.0 [pH] Normal 5-9 [facility] Comment on above: Performed By: #### RUBEN MARIERO ####[facility] [address] [address]Dr. Rito Madison SPEC GRAVITY 1.015 Normal 1.005-<=1.025 [facility] Comment on above: Performed By: #### RUBEN MARIERO ####[facility] [address] [address]Dr. Rito Madison UA PROTEIN Negative Normal NEGATIVE/ TRACE [facility] Comment on above: Performed By: #### Jatinder SANTIZO ICRO ####[facility] [address] [address]Dr. Rito Madison UR MICRO IND INDICATED Normal [facility] Comment on above: Performed By: #### Jatinder SANTIZO DAVIERO ####[facility] [address]lszqspujf[address] [place], [place] [address]Dr. Rito Madison Urobilinogen Qn (U) 0.2 {Scarlet'U}/dL Normal 0.2 - 1. 0 [facility] Comment on above: Performed By: #### Jatinder SANTIZO [facility] ####[facility] [address]pe[address] [place], [place] [address]Dr. Rito Madison LIPASEon 05-07-2022 Lipase [Catalytic activity/Vol] 171.0 U/L Normal 73.0-393.0 [facility] Comment on above: Performed By: #### L IPA, CMP, TRINY ####[facility] Uimcmxnwyw[address] [place], [place] [address]Dr. Rito Madison PROF 14(COMP METB)on 022 Albumin [Mass/Vol] 3.6 g/dL Normal 3.4-5.0 [facility] Comment on above: Performed By: #### L IPA, CMP, TRINY ####[facility] Xmpbvcfibk[address] [place], [place] [address]Dr. Rito Madison Albumin/Globulin [Mass ratio] 0.9 {ratio} Normal [facility] Comment on above: Performed By: #### L IPA, CMP, TRINY ####[facility] [address]tfzcpwkcz[address] [place], [place] [address]Dr. Rito Madison ALP [Catalytic activity/Vol] 80 U/L Normal 46-116 [facility] Comment on above: Performed By: #### L IPA, CMP, TRINY ####[facility] [address] [address]Dr. Rito Madison ALT [Catalytic activity/Vol] 22 U/L Normal 14-59 [facility] Comment on above: Performed By: #### L IPA, CMP, TRINY ####[facility] Kjfjpqgtqy[address] [place], [place] [address]Dr. Rito Madison Anion gap [Moles/Vol] 9.1 mmol/L Normal [facility] Comment on above: Performed By: #### L IPA, CMP, TRINY ####[facility] Zkjuucvkmn[address] [place], [place] [address]Dr. Rito Madison AST [Catalytic activity/Vol] 25 U/L Normal 15-37 [facility] Comment on above: Performed By: #### L IPA, CMP, TRINY ####[facility] Xgrumfhwgo[address] [place], [place] [address]Dr. Rito Madison Bilirubin [Mass/Vol] 0.6 mg/dL Normal 0.2-1.0 [facility] Comment on above: Performed By: #### L IPA CMP, TRINY ####[facility] Jnqruimton[address] [place], [place] [address]Dr. Rito Madison Calcium [Mass/Vol] 9.1 mg/dL Normal 8.5-10.1 [facility] Comment on above: Performed By: #### L IPA, CMP, TRINY ####[facility] Rbmtufsay[address] [place], [place] [address]Dr. Rito Madison Chloride [Moles/Vol] 104 mmol/L Normal 98-107 [facility] Comment on above: Performed By: #### L IPA, CMP, TRINY ####[facility] Mqykzelihr[address] [place], [place] [address]Dr. Rito Madison CO2 [Moles/Vol] 28.6 mmol/L Normal 21.0-32.0 [facility] Comment on above: Performed By: #### L IPA, CMP, TRINY ####[facility] [address] [id number]. Rito Madison Creatinine [Mass/Vol] 0.80 mg/dL Normal 0.55-1.02 [facility] Comment on above: Performed By: #### L IPA, CMP, TRINY ####[facility] [address] [id number]. Rito Madison EGFR-AF GHANAIAN >60 Normal >=60 [facility] Comment on above: Performed By: #### L IPA, CMP, TRINY ####[facility] [address] [id number]. Rito Madison EGFR-NON AF GHANAIAN >60 Normal >=60 [facility] Comment on above: Performed By: #### L IPA, CMP, TRINY ####[facility] [address] [address]Dr. Rito Madison Globulin (S) [Mass/Vol] 3.9 g/dL Normal [facility] Comment on above: Performed By: #### L IPA, CMP, TRINY ####[facility] Opfifmdlvg[address] [address]Dr. Rito Madison Glucose [Mass/Vol] 107 mg/dL Critically high 74-106 [facility] Comment on above: Performed By: #### L IPA, CMP, TRINY ####[facility] Jr[address]waunkcp[address] [address]Dr. Rito Madison Potassium [Moles/Vol] 3.7 mmol/L Normal 3.5-5.1 [facility] Comment on above: Performed By: #### L IPA, CMP, TRINY ####[facility] [address]ts[address]xcswl[address] [address]Dr. Rito Madison Protein [Mass/Vol] 7.5 g/dL Normal 6.4-8.2 [facility] Comment on above: Performed By: #### L IPA, CMP, TRINY ####[facility] [address] [address]Dr. Rito Madison Sodium [Moles/Vol] 138 mmol/L Normal 136-145 [facility] Comment on above: Performed By: #### L IPA, CMP, TRINY ####[facility] [address]ft[address] [address]Dr. Yolyjayda Los Urea nitrogen [Mass/Vol] 14.0 mg/dL Normal 7.0-18.0 [facility] Comment on above: Performed By: #### L IPA, CMP, TRINY ####[facility] [address] [address]Dr. Rito Madison Urea nitrogen/Creatinine [Mass ratio] 17.5 mg/mg Normal [facility] Comment on above: Performed By: #### L IPA, CMP, TRINY ####[facility] [address]ugs[address] [address]Dr. Rito Madison URINE MICROSCOPIC ONLYon BACTERIA NONE SEEN Normal NONE SEEN [facility] Comment on above: Performed By: #### Jatinder RUJojo UMICRO ####[facility] Uhovaaoilp[address] [place], [place] [address]Dr. Rito Madison Bacteria identified Cx Nom (U) INDICATED Normal [facility] Comment on above: Performed By: #### Jatinder SANTIZO UMICRO ####[facility] Zbkwtruehd[address] [place], [place] [address]Dr. Rito Madison CAST NONE SEEN Normal NONE SEEN [facility] Comment on above: Performed By: #### Jatinder SANTIZO UMICRO ####[facility] [address]lgbwcfwje[address] [place], [place] [address]Dr. Rito Madison Crystals LM Nom (Urine sed) NONE SEEN Normal NONE SEEN [facility] Comment on above: Performed By: #### E RUR, UMICRO ####[facility] [address] [address]Dr. Rito Madison Epithelial cells LM Ql (Urine sed) FEW Abnormal NONE SEEN /RARE [facility] Comment on above: Performed By: #### E RUR, UMICRO ####[facility] [address] [address]Dr. Rito Madison MUCOUS NONE SEEN Normal NONE SEEN [facility] Comment on above: Performed By: #### E RUR UMICRO ####[facility] [address]jgbzewzyv[address] [place], [place] [address]Nk. Rito Madison RBC 0-2 Normal 0-2 [facility] Comment on above: Performed By: #### TAMMY MARIE ####[facility] [address]qkw[address] [place], [place] [address]Ev. Rito Madison WBC 10-20 Abnormal NONE SEEN [facility] Comment on above: Performed By: #### TAMMY MARIE ####[facility] [address]frcy[address] [place], [place] [address]Yp. Rito Madison MRI CSPINE WO CONon 03-23-20 [...] SURYA MONTEMAYOR Date: 2022-03-23 06:23 Normal [facility] XR CSPINE MIN 4 VIEWSon 08- XR [...] SURYA MONTEMAYOR Date: 2022-03-10 11:08 Normal [facility] EKG 12 LeadOrdered By: Taz Gan on 02-16-2021 Atrial Rate 58 BPM [employer] Phone: P Stephenson 67 degrees [employer] Phone: P-R Interval 156 ms [employer] Phone: Q-T Interval 446 ms [employer] Phone: QRS Duration 112 ms [employer] Phone: QTc Calculation (Bazett) 437 ms [employer] Phone: R Stephenson -75 degrees [employer] Phone: T Stephenson 27 degrees [employer] Phone: Ventricular Rate 58 BPM [employer] Phone: Sinus bradycardia Left axis deviation Pulmonary disease pattern T wave abnormality, consider anterior ischemia Abnormal ECG When compared with ECG of 19-MAY-2020 14:49, Incomplete right bundle branch block is no longer Present T wave inversion no longer evident in Inferior leads T wave inversion no longer evident in Lateral leads [employer] Phone: Marlo, Mhpn Incoming Ekg Results From [employer] [place] - 02/16/2021 9:14 AM EDT Sinus bradycardia Left axis deviation Pulmonary disease pattern T wave abnormality, consider anterior ischemia Abnormal ECG When compared with ECG of 19-MAY-2020 14:49, Incomplete right bundle branch block is no longer Present T wave inversion no longer evident in Inferior leads T wave inversion no longer evident in Lateral leads [facility] Phone: [employer] Phone: MRSA DNA Probe, NasalOrdered By: Chanel Fuentes on 02-16-2021 MRSA, DNA, Nasal NEGATIVE: MRSA DNA not detected by nucleic acid amplification. NEGATIVE: MRSA DNA not detected by nucleic acid amplificati [facility] Phone: Comment on above: Results should be used as an adjunct to nosocomial control efforts to identify patients needing enhanced precautions. The test is not intended to identify patients with staphylococcal infections. Results should not be used to guide or monitor treatment for MRSA infections. Specimen Description .NASAL SWAB [facility] [email or web address] Phone: [facility] Phone: MRSA, DNA, Nasalon MRSA, DNA, Nasal NEGATIVE: MRSA DNA not detected by nucleic acid amplification. Normal [facility] Comment on above: Result Comment: Results should be used as an adjunct to nosocomial control efforts to identify patients needing enhanced precautions. The test is not intended to identify patients with staphylococcal infections. Results should not be used to guide or monitor treatment for MRSA infections. Performed By: #### M RSANO #### [facility] [address] [place] [address] System Archive Analyst: Rui Strauss DO [employer] [address] [place] [address] System Archive Analyst: Brody Remy MD Basic Metabolic PanelOrdered By: Taz Gan on 02-15-2021 Anion gap [Moles/Vol] 7 mmol/L Low 9 - 17 mmol/L [employer] Phone: Calcium [Mass/Vol] 9.0 mg/dL 8.6 - 10. 4 mg/dL [employer] Phone: Chloride [Moles/Vol] 103 mmol/L 98 - 10 7 mmol/L [employer] Phone: CO2 [Moles/Vol] 30 mmol/L 20 - 31 mmol/L [employer] Phone: Creatinine [Mass/Vol] 0.61 mg/dL 0.50 - 0.90 mg/dL [employer] Phone: GFR >60 >60 mL/min [employer] Phone: GFR Non- >60 >60 mL/min [employer] Phone: GFR/1.73 sq M.predicted MDRD (S/P/Bld) [Vol rate/Area] [employer] Phone: Comment on above: Average GFR for 70 o r more years old: 75 mL/min/1.73sq m Chronic Kidney Disease: <60 mL/min/1.73sq m Kidney failure: <15 mL/min/1.73sq m eGFR calculated using average adult body mass. Additional eGFR calculator available at: http://www.[employer].com/multiple_crcl_2012.htm GFR/1.73 sq M.predicted MDRD (S/P/Bld) [Vol rate/Area] NOT REPORTED [employer] Phone: Glucose [Mass/Vol] 95 mg/dL 70 - 99 mg/dL [facility] [employer] Phone: Interpretation and review of laboratory results Abnormal [facility] Phone: Potassium [Moles/Vol] 4.1 mmol/L 3.7 - 5.3 mmol/L [facility] Phone: Sodium [Moles/Vol] 140 mmol/L 135 - 144 mmol/L [facility] Phone: Urea nitrogen (BldV) [Mass/Vol] 16 mg/dL 8 - 23 mg/dL [facility] Phone: Urea nitrogen/Creatinine (Bld) [Mass ratio] NOT REPORTED [facility] Phone: [employer] Phone: Basic Metabolic Profon 02-15 (cont.) Normal [facility] Comment on above: Result Comment: Aver age GFR for 70 or more years old: 75 mL/min/1.73sq m Chronic Kidney Disease: <60 mL/min/1.73sq m Kidney failure: <15 mL/min/1.73sq m eGFR calculated using average adult body mass. Additional eGFR calculator available at: http://www.[employer]/multiple_crcl_2012.htm Performed By: #### B ROSSI, CDP #### [facility] [address] [place], [place] [id number] System Archive Analyst: Rui Strauss DO Anion gap [Moles/Vol] 7 mmol/L Low 9-[address] [facility] Comment on above: Performed By: #### B ROSSI, CDP #### [facility] [address] [place], [place] [id number] System Archive Analyst: Rui Strauss DO Calcium [Mass/Vol] 9.0 mg/dL Normal 8.6-10.[address] [facility] Comment on above: Performed By: #### B ROSSI, CDP #### [facility] [address] [place] [address] System Archive Analyst: Rui Strauss DO Chloride [Moles/Vol] 103 mmol/L Normal 98-107 [facility] Comment on above: Performed By: #### B ROSSI, CDP #### [facility] [address] [place] [address] System Archive Analyst: Rui Strauss DO CO2 [Moles/Vol] 30 mmol/L Normal 20-[address] [facility] Comment on above: Performed By: #### B ROSSI, CDP #### [facility] [address] [place] [address] System Archive Analyst: Rui Strauss DO Creatinine [Mass/Vol] 0.61 mg/dL Normal 0.50-0.[address] [facility] Comment on above: Performed By: #### B ROSSI, CDP #### [facility] [facility] [place] [address] System Archive Analyst: Rui Strauss DO GFR, Amer >60 Normal >60 [facility] Comment on above: Performed By: #### B ROSSI, CDP #### [facility] [facility] [place] [address] System Archive Analyst: Rui Strauss DO GFR,non Amer >60 Normal >60 [facility] Comment on above: Performed By: #### B ROSSI, CDP #### [facility] [place] [address] System Archive Analyst: Rui Strauss DO Glucose [Mass/Vol] 95 mg/dL Normal 70-[address] [facility] Comment on above: Performed By: #### B ROSSI, CDP #### [facility] [place] [address] System Archive Analyst: Rui Strauss DO Potassium [Moles/Vol] 4.1 mmol/L Normal 3.7-5.[address] [facility] Comment on above: Performed By: #### B ROSSI, CDP #### [facility] [address] [place] [address] System Archive Analyst: Rui Strauss DO Sodium [Moles/Vol] 140 mmol/L Normal 135-[address] [facility] Comment on above: Performed By: #### B ROSSI, CDP #### [facility] [address] [facility] [place] [address] System Archive Analyst: Rui Strauss DO Urea nitrogen [Mass/Vol] 16 mg/dL Normal 8-[address] [facility] Comment on above: Performed By: #### B ROSSI, CDP #### [facility] [address] [facility] [place] [address] System Archive Analyst: Rui Strauss DO BUN/CRE Ratio NOT REPORTED Normal 9-[address] [facility] Comment on above: Performed By: #### B ROSSI, CDP #### [facility] [address] [facility] [place] [address] System Archive Analyst: Rui Strauss DO Staging: NOT REPORTED Normal [facility] Comment on above: Performed By: #### B ROSSI, CDP #### [facility] [address] [facility] [place] [address] System Archive Analyst: Rui Strauss DO CBC Auto DifferentialOrdered By: Taz Gan on 02-15-2021 Absolute Eos # 0.10 [employer] Phone: Absolute Immature Granulocyte NOT REPORTED [employer]: Absolute Lymph # 1.90 [employer] Phone: Absolute Hatillo # 0.60 [employer] Phone: Basophils (Bld) [#/Vol] 0.00 10*3/uL [employer] Phone: Basophils/100 WBC (Bld) 0 % 0 - 2 % M [employer] Phone: Differential Type NOT REPORTED [employer]: Eosinophils/100 WBC (Bld) 1 % 0 - 4 % [employer] Phone: Hematocrit (Bld) [Volume fraction] 37.1 % 36 - 46 % [employer] Phone: Hemoglobin.gastrointest inal spec 1 Ql (Stl) 12.6 g/dL 12.0 - 16.0 g/dL [employer] Phone: Immature Granulocytes NOT REPORTED 0 % [employer] Phone: Interpretation and review of laboratory results Abnormal [employer] Phone: Lymphocytes/100 WBC (Bld) 28 % 24 - 44 % [employer] Phone: MCH (RBC) [Entitic mass] 36.5 pg High 26 - 34 pg [employer] Phone: MCHC (RBC) [Mass/Vol] 34.0 g/dL 31 - 37 g/dL M [employer] Phone: MCV (RBC) [Entitic vol] 107.3 fL High 80 - 100 fL [employer] Phone: Monocytes/100 WBC (Bld) 8 % High 1 - 7 % [employer] Phone: NRBC Automated NOT REPORTED per 100 WBC [employer] Phone: Platelet distribution width (Bld) [Ratio] 15.9 % High 11.5 - 14.9 % [employer] Phone: Platelet Estimate NOT REPORTED [employer] Phone: Platelet mean volume (Bld) [Entitic vol] 6.5 fL 6.0 - 12.0 fL [employer] Phone: Platelets (Bld) [#/Vol] 292 10*3/uL [employer] Phone: RBC (Bld) [#/Vol] 3.46 10*6/uL Low 4.0 - 5.2 m/uL [employer] Phone: [phone] RBC (Bld) [#/Vol] NOT REPORTED [employer] Phone: Segmented neutrophils/100 WBC (Bld) 63 % 36 - 66 % [employer] Phone: Segs Absolute 4.20 [employer] Phone: WBC (Bld) [#/Vol] 6.7 10*3/uL [employer] Phone: WBC (Bld) [#/Vol] NOT REPORTED [employer] Phone: [employer] Phone: CBC with Diffon 02-15-2021 Abs. Basophil 0.00 k/uL Normal 0.0-0.[address] [facility] Comment on above: Performed By: #### B ROSSI, CDP #### [facility] [address] [place] [address] System Archive Analyst: Rui Strauss DO Abs.Neutrophil (Seg) 4.20 k/uL Normal 1.3-9.1 [facility] Comment on above: Performed By: #### B ROSSI, CDP #### [facility] [address] [place] [address] System Archive Analyst: Rui Strauss DO Basophils/100 WBC (Bld) 0 % Normal 0-2 M [facility] Comment on above: Performed By: #### B ROSSI, CDP #### [facility] [address] [place] [address] System Archive Analyst: Rui Strauss DO Eosinophils (Bld) [#/Vol] 0.10 10*3/uL Normal 0.0-0.[address] [facility] Comment on above: Performed By: #### Lazaro RICHEY, CDP #### [facility] [address] [place] [address] System Archive Analyst: Rui Strauss DO Eosinophils/100 WBC (Bld) 1 % Normal 0-[address] [facility] Comment on above: Performed By: #### B ROSSI, CDP #### [facility] [address] [place] [address] System Archive Analyst: Rui Strauss DO Erythrocyte distribution width (RBC) [Ratio] 15.9 % High 11.5-14.[address] [facility] Comment on above: Performed By: #### Lazaro RICHEY, CDP #### [facility] [place] [address] System Archive Analyst: Rui Strauss DO Hematocrit (Bld) [Volume fraction] 37.1 % Normal 36-[address] [facility] Comment on above: Performed By: #### Lazaro RICHEY, CDP #### [facility] [place] [address] System Archive Analyst: Rui Strauss DO Hemoglobin (Bld) [Mass/Vol] 12.6 g/dL Normal 12.0-16.[address] [facility] Comment on above: Performed By: #### Lazaro RICHEY, CDP #### [facility] [place] [address] System Archive Analyst: Rui Strauss DO Lymphocytes (Bld) [#/Vol] 1.90 10*3/uL Normal 1.0-4.[address] [facility] Comment on above: Performed By: #### B ROSSI, CDP #### [facility] [place] [address] System Archive Analyst: Rui Strauss DO Lymphocytes/100 WBC (Bld) 28 % Normal 24-[address] [facility] Comment on above: Performed By: #### B ROSSI, CDP #### [facility] [place] [address] System Archive Analyst: Rui Strauss DO MCH (RBC) [Entitic mass] 36.5 pg High 26-[address] [facility] Comment on above: Performed By: #### B ROSSI, CDP #### [facility] [place] [address] System Archive Analyst: Rui Strauss DO MCHC (RBC) [Mass/Vol] 34.0 g/dL Normal 31-[address] [facility] Comment on above: Performed By: #### Lazaro RICHEY, CDP #### [facility] [address] [place] [address] System Archive Analyst: Rui Strauss DO MCV (RBC) [Entitic vol] 107.3 fL High 80-100 M [facility] Comment on above: Performed By: #### Lazaro RICHEY, CDP #### [facility] [address] [place] [address] System Archive Analyst: Rui Strauss DO Monocytes (Bld) [#/Vol] 0.60 10*3/uL Normal 0.1-1.[address] [facility] Comment on above: Performed By: #### B ROSSI, CDP #### [facility] [place] [address] System Archive Analyst: Rui Strauss DO Monocytes/100 WBC (Bld) 8 % High 1-7 M [facility] Comment on above: Performed By: #### B ROSSI, CDP #### [facility] [address] [place] [address] System Archive Analyst: Rui Strauss DO Neutrophil (Seg) 63 % Normal 36-66 [facility] Comment on above: Performed By: #### Lazaro RICHEY, CDP #### [facility] [address] [place], [place] [address] [place] [address] System Archive Analyst: Rui Strauss DO Platelet mean volume (Bld) [Entitic vol] 6.5 fL Normal 6.0-12.[address] [facility] Comment on above: Performed By: #### Lazaro RICHEY, CDP #### [facility] [address] [place] [address] System Archive Analyst: Rui Strauss DO Platelets (Bld) [#/Vol] 292 10*3/uL Normal 150-[address] [facility] Comment on above: Performed By: #### Lazaro RICHEY, CDP #### [facility] [address] [place] [address] System Archive Analyst: Rui Strauss DO RBC (Bld) [#/Vol] 3.46 10*6/uL Low 4.0-5.[address] [facility] Comment on above: Performed By: #### Lazaro RICHEY, CDP #### [facility] [address] [place] [address] System Archive Analyst: Rui Strauss DO WBC (Bld) [#/Vol] 6.7 10*3/uL Normal 3.5-11.[address] [facility] Comment on above: Performed By: #### B ROSSI, CDP #### [facility] [address] [place] [address] System Archive Analyst: Rui Strauss DO Abs.Imm.Granulocyte NOT REPORTED Normal 0.00-0.[address] [facility] Comment on above: Performed By: #### Lazaro RICHEY, CDP #### [facility] [address] [place] [address] System Archive Analyst: Rui Strauss DO Auto Diff Performed NOT REPORTED Normal [facility] Comment on above: Performed By: #### B MP, CDP #### [facility] [address] [place] [address] System Archive Analyst: Rui Strauss DO Immature Granulocyte NOT REPORTED Normal 0 Me [facility] Comment on above: Performed By: #### B MP, CDP #### [facility] [address] [place] [address] System Archive Analyst: Rui Strauss DO NRBC Automated NOT REPORTED Normal [facility] Comment on above: Performed By: #### B ROSSI, CDP #### [facility] [address] [place] [address] System Archive Analyst: Rui Strauss DO Platelet Estimate NOT REPORTED Normal [facility] Comment on above: Performed By: #### B ROSSI, CDP #### [facility] [address] [place] [address] System Archive Analyst: Rui Strauss DO RBC morphology finding Nom (Bld) NOT REPORTED Normal [facility] Comment on above: Performed By: #### B ROSSI, CDP #### [facility] [place] [address] System Archive Analyst: Rui Strauss DO WBC Morphology NOT REPORTED Normal [facility] Comment on above: Performed By: #### B ROSSI, CDP #### [facility] [place] [address] System Archive Analyst: Rui Strauss DO MRSA, DNA, Nasalon 1 Specimen Description .NASAL SWAB Normal [facility] Comment on above: Performed By: #### M RSANO #### [facility] [address] [place] [address] System Archive Analyst: Rui Strauss DO [facility] [address] [place] [address] System Archive Analyst: Brody Remy MD Microscopic UrinalysisOrdere d By: Taz Gan on 02-15-2021 - [employer] Work Phone: Amorphous, UA NOT REPORTED None [employer] Phone: [phone] Bacteria, UA FEW Abnormal None [employer] Phone: Casts UA NOT REPORTED /LPF [employer] Work Phone: [phone] Crystals, UA NOT REPORTED None /HPF [facility] Work Phone: Epithelial Cells UA 10 TO 20 /HPF [facility] Phone: Interpretation and review of laboratory results Abnormal [employer] Phone: Mucus, UA NOT REPORTED None [facility] Phone: Other Observations UA NOT REPORTED NOT REQ. M [facility] [employer] Work Phone: RBC, UA 0 TO 2 /HPF [facility] [employer] Work Phone: Renal Epithelial, UA NOT REPORTED 0 /HPF [facility] [employer] Work Phone: Trichomonas, UA NOT REPORTED None [facility] Phone: WBC, UA 5 TO 10 /HPF [facility] [employer] Work Phone: Yeast, UA NOT REPORTED None [facility] Phone: [facility] [employer] Work Phone: UA w/Reflex Cultureon 2020 Bilirubin, SemiQt,Ur Negative Normal NEG [facility] Comment on above: Performed By: #### U MICAO, UAX #### [facility] [address] [place] [address] System Archive Analyst: Rui Strauss DO Blood, Urine Negative Normal NEG [facility] Comment on above: Performed By: #### U MICAO, UAX #### [facility] [address] [facility] [place] [address] System Archive Analyst: Rui Strauss DO Clarity (U) CLEAR Normal CLEAR [facility] Comment on above: Performed By: #### U MICAO, UAX #### [facility] [address] [facility] [place] [address] System Archive Analyst: Rui Strauss DO Color (U) YELLOW Normal YEL [facility] Comment on above: Performed By: #### U MICAO, UAX #### [facility] [address] [facility] [place] [address] System Archive Analyst: Rui Strauss DO Glucose Ql (U) Negative Normal NEG [facility] Comment on above: Performed By: #### U MICAO, UAX #### [facility] [address] [facility] [place] [address] System Archive Analyst: Rui Strauss DO Ketones Ql (U) Negative Normal NEG [facility] Comment on above: Performed By: #### U MICAO, UAX #### [facility] [address] [facility] [place] [address] System Archive Analyst: Rui Strauss DO Leukocyte esterase Test strip Ql (U) SMALL Abnormal NEG [facility] Comment on above: Performed By: #### U MICAO, UAX #### [facility] [address] [facility] [place] [address] System Archive Analyst: Rui Strauss DO Nitrite,Ur Negative Normal NEG [facility] Comment on above: Performed By: #### U MICAO, UAX #### [facility] [address] [facility] [address] System Archive Analyst: Rui Strauss DO PH,Ur 5.5 Normal 5.0-8.[address] [facility] Comment on above: Performed By: #### U SABRAO, UAX #### [facility] [address] [facility] [place] [address] System Archive Analyst: Rui Strauss DO Protein Ql (U) Negative Normal NEG [facility] Comment on above: Performed By: #### U SABRAO, UAX #### [facility] [address] [place] [address] System Archive Analyst: Rui Strauss DO Spec. Holcomb,Ur 1.022 Normal 1.000-1.030 [facility] Comment on above: Performed By: #### U SABRAO, UAX #### [facility] [address] [place] [address] System Archive Analyst: Rui Strauss DO Urobilinogen,Ur Normal Normal NORM [facility] Comment on above: Performed By: #### U JEMIMA, UAX #### [facility] [address] [place] [address] System Archive Analyst: Rui Strauss DO Comment NOT REPORTED Normal [facility] Comment on above: Performed By: #### U SABRAO, UAX #### [facility] [address] [place] [address] System Archive Analyst: Rui Strauss DO Urinalysis Reflex to Culture Ordered By: Taz Gan on 02-15-2021 Bilirubin Urine Negative NEGATIVE [employer] Phone: Color, UA YELLOW YELLOW [employer] Work Phone: Glucose, Ur Negative NEGATIVE [employer] Phone: Interpretation and review of laboratory results Abnormal [employer] Phone: Ketones Ql (U) Negative NEGATIVE [employer] Phone: Leukocyte esterase Test strip Ql (U) SMALL Abnormal NEGATIVE [employer] Phone: Nitrite, Urine Negative NEGATIVE [employer] Work Phone: pH, UA 5.5 [employer] Work Phone: Protein, UA Negative NEGATIVE [employer] Phone: Specific Holcomb, UA 1.022 [employer] Work Phone: Turbidity UA CLEAR CLEAR [employer] Work Phone: Urinalysis Comments NOT REPORTED [facility] [employer] Work Phone: Urine Hgb Negative NEGATIVE [employer] Phone: Urobilinogen, Urine Normal Normal [facility] Phone: [employer] Phone: Urinalysis,Microon 1 ----- Normal [facility] Comment on above: Performed By: #### AWAIS ALMAZANX #### [facility] [address] [place] [address] System Archive Analyst: Rui Strauss DO Bacteria FEW Abnormal NONE [facility] Comment on above: Performed By: #### AWAIS ALMAZANX #### [facility] [address] [place] [address] System Archive Analyst: Rui Strauss DO Epithelial cells LM Ql (Urine sed) 10 TO [address] [facility] Comment on above: Performed By: #### AWAIS ALMAZANX #### [facility] [address] [place] [address] System Archive Analyst: Rui Strauss DO Urine RBC's 0 TO [address] [facility] Comment on above: Performed By: #### AWAIS ALMAZANX #### [facility] [address] [facility] [place] [address] System Archive Analyst: Rui Strauss DO Urine WBC's 5 TO [address] [facility] Comment on above: Performed By: #### U SABRAO, UAX #### [facility] [address] [facility] [place] [address] System Archive Analyst: Rui Strauss DO Amorphous sediment LM Ql (Urine sed) NOT REPORTED Normal NONE [facility] Comment on above: Performed By: #### U JEMIMA UAX #### [facility] [place] [address] System Archive Analyst: Rui Strauss DO Casts NOT REPORTED Normal [facility] Comment on above: Performed By: #### Tony ONOFER UAX #### [facility] [place] [address] System Archive Analyst: Rui Strauss DO Crystals LM Nom (Urine sed) NOT REPORTED Normal NONE [facility] Comment on above: Performed By: #### U JEMIMA, UAX #### [facility] [address] [facility] [place] [address] System Archive Analyst: Rui Strauss DO Epithelial, Renal NOT REPORTED Normal [address] [facility] Comment on above: Performed By: #### U JEMIMA, UAX #### [facility] [address] [facility] [place] [address] System Archive Analyst: Rui Strauss DO Mucus Strands NOT REPORTED Normal NONE [facility] Comment on above: Performed By: #### U JEMIMA, UAX #### [facility] [address] [facility] [place] [address] System Archive Analyst: Rui Strauss DO Other Observations NOT REPORTED Normal NREQ [facility] Comment on above: Performed By: #### U MICAO, UAX #### [facility] [address] [facility] [place] [address] System Archive Analyst: Rui Strauss DO Trichomonas NOT REPORTED Normal NONE [facility] Comment on above: Performed By: #### U MICAO, UAX #### [facility] [address] [facility] [place] [address] System Archive Analyst: Rui Strauss DO Yeast NOT REPORTED Normal NONE [facility] Comment on above: Performed By: #### U MICAO, UAX #### [facility] [address] [facility] [place] [address] System Archive Analyst: Rui Strauss DO EKG 12 Leadon 05-21-2020 Atrial Rate 66 BPM [place], [place] P Stephenson 54 degrees [place] P-R Interval 132 ms [place] Q-T Interval 420 ms [place] QRS Duration 100 ms [place] QTc Calculation (Bazett) 440 ms [place] R Stephenson -89 degrees [facility], [place] T Stephenson -20 degrees [place] Urea nitrogen [Mass/Vol] Normal sinus rhythm Left axis deviation Incomplete right bundle branch block ST & T wave abnormality, consider anterolateral ischemia Abnormal ECG No previous ECGs available [place] Ventricular Rate 66 BPM [place] Marlo, Mhpn Incoming Ekg Results From [facility] - 05/21/2020 9:08 AM EST Normal sinus rhythm Left axis deviation Incomplete right bundle branch block ST & T wave abnormality, consider anterolateral ischemia Abnormal ECG No previous ECGs available [place] MRSA DNA Probe, Nasalon - MRSA, DNA, Nasal NEGATIVE: MRSA DNA not detected by nucleic acid amplification. NEGATIVE: MRSA DNA not detected by nucleic acid amplificati [place] Comment on above: Results should be used as an adjunct to nosocomial control efforts to identify patients needing enhanced precautions. The test is not intended to identify patients with staphylococcal infections. Results should not be used to guide or monitor treatment for MRSA infections. Specimen Description .NASAL SWAB [place], [place] MRSA, DNA, Nasalon 0 MRSA, DNA, Nasal NEGATIVE: MRSA DNA not detected by nucleic acid amplification. Normal NMRSAA [facility] Comment on above: Result Comment: Results should be used as an adjunct to nosocomial control efforts to identify patients needing enhanced precautions. The test is not intended to identify patients with staphylococcal infections. Results should not be used to guide or monitor treatment for MRSA infections. Performed By: #### M RSANO #### [facility] [address] [place] [address] System Archive Analyst: Rui Strauss DO [facility] [address] [place] [address] System Archive Analyst: Brody Remy MD Basic Metabolic Panelon 11-0 Anion gap [Moles/Vol] 8 mmol/L Low 9 - 17 mmol/L [place] Bun/Cre Ratio NOT REPORTED [place] Calcium [Mass/Vol] 9.1 mg/dL 8.6 - 10. 4 mg/dL [place] Chloride [Moles/Vol] 102 mmol/L 98 - 10 7 mmol/L [place] CO2 [Moles/Vol] 28 mmol/L 20 - 31 mmol/L [place] Creatinine [Mass/Vol] 0.53 mg/dL 0.5 - 0.9 mg/dL [place] GFR >60 >60 mL/min [place] GFR Non- >60 >60 mL/min [place] GFR/1.73 sq M predicted among non-blacks MDRD (S/P/Bld) [Vol rate/Area] NOT REPORTED [place] GFR/1.73 sq M predicted among non-blacks MDRD (S/P/Bld) [Vol rate/Area] [place] Comment on above: Average GFR for 70 o r more years old: 75 mL/min/1.73sq m Chronic Kidney Disease: <60 mL/min/1.73sq m Kidney failure: <15 mL/min/1.73sq m eGFR calculated using average adult body mass. Additional eGFR calculator available at: http://www.[employer]/multiple_crcl_2012.htm Glucose [Mass/Vol] 116 mg/dL High 70 - 99 mg/dL [place], [place] Interpretation and review of laboratory results Abnormal [place] Potassium [Moles/Vol] 4.3 mmol/L 3.7 - 5.3 mmol/L [place] Sodium [Moles/Vol] 138 mmol/L 135 - 144 mmol/L [place] Urea nitrogen [Mass/Vol] 12 mg/dL 8 - 23 mg/dL [place] Basic Metabolic Profon 05-19 (cont.) Normal [facility] Comment on above: Result Comment: Aver age GFR for 70 or more years old: 75 mL/min/1.73sq m Chronic Kidney Disease: <60 mL/min/1.73sq m Kidney failure: <15 mL/min/1.73sq m eGFR calculated using average adult body mass. Additional eGFR calculator available at: http://www.[employer]/multiple_crcl_2012.htm Performed By: #### C CHARLY, BMP #### [facility] [address] [place] [address] System Archive Analyst: Rui Strauss DO Anion gap [Moles/Vol] 8 mmol/L Low 9-[address] [facility] Comment on above: Performed By: #### C CHARLY, BMP #### [facility] [place] [address] System Archive Analyst: Rui Strauss DO Calcium [Mass/Vol] 9.1 mg/dL Normal 8.6-10.[address] [facility] Comment on above: Performed By: #### C CHARLY, BMP #### [facility] [place] [address] System Archive Analyst: Fanelly, Rui, DO Chloride [Moles/Vol] 102 mmol/L Normal 98-107 [facility] Comment on above: Performed By: #### C DP, BMP #### [facility] [address] [place] [address] System Archive Analyst: Rui Strauss, DO CO2 [Moles/Vol] 28 mmol/L Normal 20-[address] [facility] Comment on above: Performed By: #### C DP, BMP #### [facility] [place] [address] System Archive Analyst: Rui Strauss, DO Creatinine [Mass/Vol] 0.53 mg/dL Normal 0.50-0.[address] [facility] [facility] Comment on above: Performed By: #### C DP, BMP #### [facility] [address] [place] [address] System Archive Analyst: Rui Strauss, DO GFR, Amer >60 Normal >60 [facility] Comment on above: Performed By: #### C DP, BMP #### [facility] [place] [address] System Archive Analyst: Rui Strauss DO GFR,non Amer >60 Normal >60 [facility] Comment on above: Performed By: #### C DP, BMP #### [facility] [address] [place] [address] System Archive Analyst: Rui Strauss DO Glucose [Mass/Vol] 116 mg/dL High 70-[address] [facility] Comment on above: Performed By: #### C DP, BMP #### [facility] [address] [place] [address] System Archive Analyst: Rui Strauss DO Potassium [Moles/Vol] 4.3 mmol/L Normal 3.7-5.[address] [facility] Comment on above: Performed By: #### C DP, BMP #### [facility] [address] [place] [address] System Archive Analyst: Rui Strauss DO Sodium [Moles/Vol] 138 mmol/L Normal 135-[address] [facility] Comment on above: Performed By: #### C DP, BMP #### [facility] [address] [facility] [place] [address] System Archive Analyst: Rui Strauss DO Urea nitrogen [Mass/Vol] 12 mg/dL Normal 8-[address] [facility] Comment on above: Performed By: #### C DP, BMP #### [facility] [address] [facility] [place] [address] System Archive Analyst: Rui Strauss DO BUN/CRE Ratio NOT REPORTED Normal 9-[address] [facility] Comment on above: Performed By: #### C DP, BMP #### [facility] [address] [facility] [place] [address] System Archive Analyst: Rui Strauss DO Staging: NOT REPORTED Normal [facility] Comment on above: Performed By: #### C DP, BMP #### [facility] [address] [facility] [place] [address] System Archive Analyst: Rui Strauss DO CBC Auto Differentialon 11-0 Basophils (Bld) [#/Vol] 0.00 10*3/uL [place] Basophils/100 WBC (Bld) 1 % 0 - 2 % [place], [place] Differential Type NOT REPORTED [place] Eosinophils (Bld) [#/Vol] 0.10 10*3/uL [place] Eosinophils/100 WBC (Bld) 2 % 0 - 4 % [place] Erythrocyte distribution width (RBC) [Ratio] 15.8 % High 11.5 - 14.9 % [place] Hematocrit (Bld) [Volume fraction] 41.2 % 36 - 46 % [place] Hemoglobin (Bld) [Mass/Vol] 14.0 g/dL 12 - 16 g/dL [place] Interpretation and review of laboratory results Abnormal [place] Lymphocytes (Bld) [#/Vol] 1.90 10*3/uL [place] Lymphocytes/100 WBC (Bld) 26 % 24 - 44 % [place] MCH (RBC) [Entitic mass] 32.8 pg 26 - 34 pg [place] MCHC (RBC) [Mass/Vol] 34.0 g/dL 31 - 37 g/dL [place] MCV (RBC) [Entitic vol] 96.3 fL 80 - 100 fL [place] Monocytes (Bld) [#/Vol] 0.80 10*3/uL [place] Monocytes/100 WBC (Bld) 10 % High 1 - 7 % [place] Platelet mean volume (Bld) [Entitic vol] 6.5 fL 6 - 12 fL [place] Platelets (Bld) [#/Vol] NOT REPORTED [place] Platelets (Bld) [#/Vol] 299 10*3/uL [place] RBC (Bld) [#/Vol] 4.28 10*6/uL 4 - 5.2 m/uL [place], [place] RBC morphology finding Nom (Bld) NOT REPORTED [place] Segmented neutrophils/100 WBC (Bld) 61 % 36 - 66 % [place] Segs Absolute 4.50 [place] WBC (Bld) [#/Vol] 7.3 10*3/uL [place] WBC (Bld) [#/Vol] NOT REPORTED per 100 WBC [place], [place] WBC Morphology NOT REPORTED [place] CBC with Diffon 05-19-2020 Abs. Basophil 0.00 k/uL Normal 0.0-0.[address] [facility] Comment on above: Performed By: #### C DP, BMP #### [facility] [address] [place] [address] System Archive Analyst: Rui Strauss DO Abs.Neutrophil (Seg) 4.50 k/uL Normal 1.3-9.1 [facility] Comment on above: Performed By: #### C DP, BMP #### [facility] [address] [place] [address] System Archive Analyst: Rui Strauss DO Basophils/100 WBC (Bld) 1 % Normal 0-2 [facility] Comment on above: Performed By: #### C DP, BMP #### [facility] [place] [address] System Archive Analyst: Rui Strauss DO Eosinophils (Bld) [#/Vol] 0.10 10*3/uL Normal 0.0-0.[address] [facility] Comment on above: Performed By: #### C DP, BMP #### [facility] [place] [address] System Archive Analyst: Rui Strauss DO Eosinophils/100 WBC (Bld) 2 % Normal 0-[address] [facility] Comment on above: Performed By: #### C DP, BMP #### [facility] [place] [address] System Archive Analyst: Rui Strauss DO Erythrocyte distribution width (RBC) [Ratio] 15.8 % High 11.5-14.[address] [facility] Comment on above: Performed By: #### C DP, BMP #### [facility] [place] [address] System Archive Analyst: Rui Strauss DO Hematocrit (Bld) [Volume fraction] 41.2 % Normal 36-[address] [facility] Comment on above: Performed By: #### C DP, BMP #### [facility] [place] [address] System Archive Analyst: Rui Strauss DO Hemoglobin (Bld) [Mass/Vol] 14.0 g/dL Normal 12.0-16.[address] [facility] Comment on above: Performed By: #### C DP, BMP #### [facility] [place] [address] System Archive Analyst: Rui Strauss DO Lymphocytes (Bld) [#/Vol] 1.90 10*3/uL Normal 1.0-4.[address] [facility] Comment on above: Performed By: #### C DP, BMP #### [facility] [address] [place] [address] System Archive Analyst: Rui Strauss DO Lymphocytes/100 WBC (Bld) 26 % Normal 24-[address] [facility] Comment on above: Performed By: #### C CHARLY, BMP #### [facility] [address] [place] [address] System Archive Analyst: Rui Strauss DO MCH (RBC) [Entitic mass] 32.8 pg Normal 26-[address] [facility] Comment on above: Performed By: #### C DP, BMP #### [facility] [address] [place] [address] System Archive Analyst: Riu Strauss DO MCHC (RBC) [Mass/Vol] 34.0 g/dL Normal 31-[address] [facility] Comment on above: Performed By: #### C DP, BMP #### [facility] [address] [place] [address] System Archive Analyst: Rui Strauss DO MCV (RBC) [Entitic vol] 96.3 fL Normal 80-100 M [facility] Comment on above: Performed By: #### C DP, BMP #### [facility] [address] [place] [address] System Archive Analyst: Rui Strauss DO Monocytes (Bld) [#/Vol] 0.80 10*3/uL Normal 0.1-1.[address] [facility] Comment on above: Performed By: #### C DP, BMP #### [facility] [address] [place] [address] System Archive Analyst: Rui Strauss DO Monocytes/100 WBC (Bld) 10 % High 1-7 M [facility] Comment on above: Performed By: #### C DP, BMP #### [facility] [address] [place] [address] System Archive Analyst: Rui Strauss DO Neutrophil (Seg) 61 % Normal 36-66 [facility] Comment on above: Performed By: #### C DP, BMP #### [facility] [place] [address] System Archive Analyst: Rui Strauss DO Platelet mean volume (Bld) [Entitic vol] 6.5 fL Normal 6.0-12.[address] [facility] Comment on above: Performed By: #### C DP, BMP #### [facility] [place] [address] System Archive Analyst: Rui Strauss DO Platelets (Bld) [#/Vol] 299 10*3/uL Normal 150-[address] [facility] Comment on above: Performed By: #### C DP, BMP #### [facility] [address] [place] [address] System Archive Analyst: Rui Strauss DO RBC (Bld) [#/Vol] 4.28 10*6/uL Normal 4.0-5.[address] [facility] Comment on above: Performed By: #### C DP, BMP #### [facility] [address] [place] [address] System Archive Analyst: Rui Strauss DO WBC (Bld) [#/Vol] 7.3 10*3/uL Normal 3.5-11.[address] [facility] Comment on above: Performed By: #### C DP, BMP #### [facility] [address] [place] [address] System Archive Analyst: Rui Strauss DO Abs.Imm.Granulocyte NOT REPORTED Normal 0.00-0.[address] [facility] Comment on above: Performed By: #### C DP, BMP #### [facility] [address] [place] [address] System Archive Analyst: Rui Strauss DO Auto Diff Performed NOT REPORTED Normal [facility] Comment on above: Performed By: #### C DP, BMP #### [facility] [address] [place] [address] System Archive Analyst: Rui Strauss DO Immature Granulocyte NOT REPORTED Normal 0 [facility] Comment on above: Performed By: #### C DP, BMP #### [facility] [address] [place] [address] System Archive Analyst: Rui Strauss DO NRBC Automated NOT REPORTED Normal [facility] Comment on above: Performed By: #### C DP, BMP #### [facility] [address] [place] [address] System Archive Analyst: Rui Strauss DO Platelet Estimate NOT REPORTED Normal [facility] Comment on above: Performed By: #### C DP, BMP #### [facility] [address] [place] [address] System Archive Analyst: Rui Strauss DO RBC morphology finding Nom (Bld) NOT REPORTED Normal [facility] Comment on above: Performed By: #### C DP, BMP #### [facility] [address] [place] [address] [place] [address] System Archive Analyst: Rui Strauss DO WBC Morphology NOT REPORTED Normal [facility] Comment on above: Performed By: #### C DP, BMP #### [facility] [address] [place] [address] System Archive Analyst: Rui Strauss DO MRSA, DNA, Nasalon 0 Specimen Description .NASAL SWAB Normal [facility] Comment on above: Performed By: #### M RSANO #### [facility] [address] [place] [address] System Archive Analyst: Rui Strauss DO [address] [address] System Archive Analyst: Brody Remy MD Microscopic Urinalysison Amorphous, UA NOT REPORTED None [place], [place] Bacteria, UA FEW Abnormal None [facility], [place] Casts UA NOT REPORTED /LPF [place] Crystals, UA NOT REPORTED None /HPF [place] Epithelial Cells UA 2 TO 5 /HPF [place] Interpretation and review of laboratory results Abnormal [place] Mucus, UA NOT REPORTED None [place] Other Observations UA NOT REPORTED NOT REQ. M [facility], [place] RBC (U) [#/Vol] 0 TO 2 /HPF [place] Renal Epithelial, UA NOT REPORTED 0 /HPF [facility], [place] Trichomonas, UA NOT REPORTED None [place] WBC, UA 2 TO 5 /HPF [place] Yeast, UA NOT REPORTED None [place] - [facility], [place] Otheron 05-19-2020 Immature granulocytes (Bld) [#/Vol] NOT REPORTED [place] UA w/Reflex Cultureon 2019 Acetoacetic Acid,Ur Negative Normal NEG [facility] Comment on above: Performed By: #### U AX, UMICAO #### [facility] [address] [place] [address] System Archive Analyst: Rui Strauss DO Bilirubin, SemiQt,Ur Negative Normal NEG [facility] Comment on above: Performed By: #### U AX UMYAMILKAO #### [facility] [address] [place] [address] System Archive Analyst: Rui Strauss DO Color (U) YELLOW Normal YEL [facility] Comment on above: Performed By: #### U AXMICKIO #### [facility] [address] [place] [address] System Archive Analyst: Rui Strauss DO Glucose Ql (U) Negative Normal NEG [facility] Comment on above: Performed By: #### MICKI ACO #### [facility] [address] [place] [address] System Archive Analyst: Rui Strauss DO Hemoglobin, Ur Negative Normal NEG [facility] Comment on above: Performed By: #### U AXMICKIO #### [facility] [address] [place] [address] System Archive Analyst: Rui Strauss DO Leukocyte esterase Test strip Ql (U) TRACE Abnormal NEG [facility] Comment on above: Performed By: #### U AX UMICAO #### [facility] [address] [place] [address]43 System Archive Analyst: Rui Strauss DO Nitrite,Ur Negative Normal NEG [facility] Comment on above: Performed By: #### U AX UMICAO #### [facility] [address] [place] [address] System Archive Analyst: Rui Strauss DO PH,Ur 6.5 Normal 5.0-8.[address] [facility] Comment on above: Performed By: #### U AXKIRSTEN #### [facility] [address] [place] [address] System Archive Analyst: Rui Strauss DO Protein Ql (U) Negative Normal NEG [facility] Comment on above: Performed By: #### KIRSTEN AC #### [facility] [place] [address] System Archive Analyst: Rui Strauss DO Spec. [place],Ur 1.011 Normal 1.000-1.030 [facility] Comment on above: Performed By: #### KIRSTEN AC #### [facility] [address] [place] [address] System Archive Analyst: Rui Strauss DO Turbidity CLEAR Normal CLEAR [facility] Comment on above: Performed By: #### KIRSTEN AC #### [facility] [address] [place] [address] System Archive Analyst: Rui Strauss DO Urobilinogen,Ur Normal Normal NORM [facility] Comment on above: Performed By: #### KIRSTEN AC #### [facility] [address] [place] [address]58 System Archive Analyst: Rui Strauss DO Comment NOT REPORTED Normal [facility] Comment on above: Performed By: #### U KIRSTEN PAIGE #### [facility] [address] [place] [address] System Archive Analyst: Rui Strauss DO Urinalysis Reflex to Culture on 05-19-2020 Bilirubin Urine Negative NEGATIVE [facility] [place] Color, UA YELLOW YELLOW [facility] [place] Glucose, Ur Negative NEGATIVE [facility] [place] Interpretation and review of laboratory results Abnormal [facility] [place] Ketones Ql (U) Negative NEGATIVE [facility] [place] Leukocyte esterase Test strip Ql (U) TRACE Abnormal NEGATIVE [facility], [place] Nitrite, Urine Negative NEGATIVE [facility], [place] pH, UA 6.5 [place] Protein (U) [Mass/Vol] Negative NEGATIVE [facility], [place] Specific [place], UA 1.011 [place], [place] Turbidity UA CLEAR CLEAR [place] Urinalysis Comments NOT REPORTED [place] Urine Hgb Negative NEGATIVE [place] Urobilinogen, Urine Normal Normal [place] Urinalysis,Microon 0 ----- Normal [facility] Comment on above: Performed By: #### KIRSTEN AC #### [facility] [address] [place] [address] System Archive Analyst: Rui Strauss DO Bacteria FEW Abnormal NONE [facility] Comment on above: Performed By: #### KIRSTEN AC #### [facility] [address] [place] [address]71 System Archive Analyst: Rui Strauss DO Epithelial cells LM Ql (Urine sed) 2 TO [address] [facility] Comment on above: Performed By: #### KIRSTEN AC #### [facility] [address] [place] [address]29 System Archive Analyst: Rui Strauss DO Urine RBC's 0 TO [address] [facility] Comment on above: Performed By: #### KIRSTEN AC #### [facility] [address] [place] [address]47 System Archive Analyst: Rui Strauss DO Urine WBC's 2 TO [address] [facility] Comment on above: Performed By: #### KIRSTEN AC #### [facility] [address] [place] [address]90 System Archive Analyst: Rui Strauss DO Amorphous sediment LM Ql (Urine sed) NOT REPORTED Normal NONE [facility] Comment on above: Performed By: #### U AX, UMICAO #### [facility] [address] [facility] [address] System Archive Analyst: Rui Strauss DO Casts NOT REPORTED Normal [facility] Comment on above: Performed By: #### U AX, UMICAO #### [facility] [address] [facility] [place] [address] System Archive Analyst: Rui Strauss DO Crystals LM Nom (Urine sed) NOT REPORTED Normal NONE [facility] Comment on above: Performed By: #### U AX, UMICAO #### [facility] [address] [facility] [place] [address] System Archive Analyst: Rui Strauss DO Epithelial, Renal NOT REPORTED Normal [address] [facility] Comment on above: Performed By: #### U AX, UMICAO #### [facility] [address] [facility] [place] [address] System Archive Analyst: Rui Strauss DO Mucus Strands NOT REPORTED Normal NONE [facility] Comment on above: Performed By: #### U AX, UMICAO #### [facility] [address] [facility] [place] [address] System Archive Analyst: Rui Strauss DO Other Observations NOT REPORTED Normal NREQ [facility] Comment on above: Performed By: #### U AX, UMICAO #### [facility] [address] [facility] [place] [address] System Archive Analyst: Rui Strauss DO Trichomonas NOT REPORTED Normal NONE [facility] Comment on above: Performed By: #### U AX, UMICAO #### [facility] [address] [facility] [address] System Archive Analyst: Rui Strauss DO Yeast NOT REPORTED Normal NONE [facility] Comment on above: Performed By: #### KIRSTEN AC #### [facility] [address] [place] [address] System Archive Analyst: Rui Strauss DO Vital Signs Date Time Vital Sign Value Performing Clinician Gabriele pena 02-15-2021 11:50-0400 Body height 152.4 cm [facility] Phone: 02-15-2021 11:50-0400 Body mass index (BMI) [Ratio] 31.25 kg/m2 [facility] Phone: 02-15-2021 11:50-0400 Body temperature 98.01 [degF] [facility] Phone: 02-15-2021 11:50-0400 Body weight 72.58 kg [facility] 1 [facility] Phone: 02-15-2021 11:50-0400 Diastolic blood pressure 61 mm[Hg] [facility] Phone: 02-15-2021 11:50-0400 Heart rate 66 /min [facility] Phone: 02-15-2021 11:50-0400 Respiratory rate 18 /min [facility] Phone: 02-15-2021 11:50-0400 SaO2% (BldA) [Mass fraction] 100 % [facility] 1 [facility] Phone: 02-15-2021 11:50-0400 Systolic blood pressure 132 mm[Hg] [facility] 1 [place] Phone: 05-19-2020 13:09-0500 BMI (Body Mass Index) 33.59 kg/m2 [facility] 1 [facility], [place] 05-19-2020 13:09-0500 Body Temperature 98.8 [degF] [facility] 1 [facility], [place] 05-19-2020 13:09-0500 Body weight 78.02 kg [facility] 1 [facility] , [place] 05-19-2020 13:09-0500 BP Diastolic 69 mm[Hg] [facility] 1 [facility] , [place] 05-19-2020 13:090500 BP Systolic 139 mm[Hg] [facility] 1 [facility] , [place] 05-19-2020 13:090500 Height 152.4 cm [facility] 1 [facility] , [place] 05-19-2020 13:09-0500 Pulse (Heart Rate) 70 /min [facility] 1 [facility], [place] 05-19-2020 13:090500 Pulse Oximetry 95 % [facility] 1 [facility] , [place] 05-19-2020 13:09-0500 Respiratory Rate 20 /min [facility] 1 [facility], [place] Encounters Encounter Date Encounter Type Care Provider Facility Start: 10-12-2022 End: 10-13-[address] MARISEL GIBBS . Facility:[facility] Start: 09-27-2022 End: 09-28-[address] MARISEL GIBBS . Facility:[facility] Start: 09-14-2022 End: 09-15-[address] MARISEL GIBBS . Facility:[facility] Start: 08-30-2022 End: 08-31-[address] MARISEL GIBBS . Facility:[facility] Start: 07-20-[address] MARISEL GIBBS . Facili ty:[facility] Start: 06-01-2022 End: 06-01-2022 ambulatory AMBIKA PANDA Facility:[facility] Start: 05-07-2022 End: 05-07-2022 ambulatory MARCIA RIVAS Facility:[facility] Start: 03-22-2022 End: 03-23-[address] MARISEL GIBBS . Facility:[facility] Start: 03-09-2022 End: 03-10-[address] MARISEL GIBBS . Facility:[facility] Start: 01-03-2022 End: 01-03-[address] CHAZ SMITH Facility:[facility] Start: 02-15-2021 End: 02-20-2021 ambulatory CHANEL FUENTES [facility] Start: 02-15-2021 End: 02-19-2021 Subsequent hospital visit by physician Navjot Tello Rm 1 [facility] Pre-Admit Testing Start: 05-19-2020 End: 05-24-2020 ambulatory CHANEL FUENTES [facility] Start: 05-19-2020 End: 05-23-2020 Subsequent hospital visit [...] Author Start: 02-15-2022 [facility]: Start: 02-15-2022 Potassium monitoring Potassium monit [facility] [employer] Work Phone: Start: 05-19-2021 Creatinine measurement Creatinine mo [place] Start: 05-19-2021 Potassium monitoring Potassium monit [place], [place] Start: 03-16-2021 Influenza vaccination Flu vaccine (# 1) [facility] Phone: Start: 03-16-2021 End: 03-16-2021 Patient encounter procedure 03/16/2021 Office Visit Orthopedic Surgery Chanel Fuentes MD [address] [address] [phone] [facility] Start: 03-01-2021 End: 03-01-2021 Admission to same day surgery center 03/01/2021 Surgery IP Unit Chanel Fuentes MD [address] [address] [phone] KNEE TOTAL ARTHROPLASTY [facility] OR Comment on above: KNEE TOTAL ARTHROPLA STY Start: 03-01-2021 Subsequent hospital visit by physician 03/01/2021 Hospital Encounter IP Unit Chanel Fuentes MD [address] [id number] [facility] Start: 06-16-2020 End: 06-16-2020 Office Visit 06/16/2020 Office Visit Orthopedic Surgery Chanel Fuentes MD [address] [address] [phone] [facility] Start: 06-01-2020 End: 06-01-2020 Hospital Encounter [facility] Comment on above: KNEE TOTAL ARTHROPLA [facility] Start: 05-28-2020 End: 05-28-2020 Appointment 05/28/2020 Appointment Pre-Admission Testing [facility] PRE-ADMIT TESTING Start: 03-29-2020 Annual Wellness Visi t (AWV) Annual Wellness Visit (AWV) [place], [place] Start: 03-16-2020 Influenza vaccination Flu vaccine (# 1) [place], [place] Start: 11-18-1998 Screening for osteoporosis DEXA (modify frequency per FRAX score) [place], [place] Start: 11-18-1993 Shingles Vaccine (1 of 2) Shingles Vaccine (1 of 2) [place], [place] Start: 11-18-1962 DTaP/Tdap/Td vaccine (1 - Tdap) DTaP/Tdap/Td vaccine (1 - Tdap) [place] Start: 11-18-1953 Lipid panel Lipid screen [place], [place] Start: 1945 Hepatitis C screening Hepatitis C sc reen [facility] Work Phone: Immunizations Immunization Date Immunization Notes Care Provider Fa anjum 05-13-2004 influenza virus vacc ine, unspecified formulation [facility] [place], [place] Payers Date Payer Category Payer Medicare [id number] 1959 Private Health Insurance CLI [id number] 1959 Self-pay [id number] 1945 Unknown [id number] 2.16.8 [id number] 1945 Unknown [id number] 2.16.8 [id number] 1945 Unknown [id number] 2.16.84 [id number] 1945 Unknown [id number] 2.16.84 [id number] 1945 Unknown [id number] 2.16.84 [id number] 1943 Unknown [id number] 2.16.84 [id number] 1943 Unknown [id number] 2.16.84 [id number] 1943 Unknown [id number] 2.16.84 [id number] 1943 Unknown [id number] 2.16.84 [id number] 1943 Unknown [id number] 2.16.84 [id number] 1943 Unknown [id number] 2.16.84 [id number] 1945 Unknown [id number] 2.16.84 [id number] Social History Date Type Detail Facility Start: 05-19-2020 End: 02-15-2021 Tobacco smoking status NHIS Never smoker [place], [place] Start: 05-19-2020 End: 02-15-2021 Tobacco use and exposure Never used [place], [place] Start: 05-19-2020 End: 02-15-2021 Alcohol intake Lifetime non-drinker (finding) [place], [place] Start: 05-19-2020 History SDOH Alcohol Frequency 1 [place], [place] Start: 1945 Sex Assigned At Not on file [place], [place] Exposure to SARS-CoV -2 (event) Not sure [place], [place] Hospital Discharge instructions 02-15-2021 Instructions Note [...] powder, deodorant, jewelry, piercings, perfume, makeup, nail yi, hair accessories, or hair spray on the [...] hospital. The Day of Surgery: Arrive at [facility] Surgery Entrance at the time directed by your surgeon and check in at the desk. If you have a living will or healthcare power of family medicine chair, please bring a copy. You will be taken to the pre-op holding area where you will be prepared for surgery. A physical assessment will be performed by a nurse practitioner or supervisor housecleaner. Your IV will be started and you [...] in recovery room. documented in this encounter [facility] Phone: History of Present illness Narrative 02-15-2021 Renetta Vieyra RN - 02/15/2021 11:30 AM EDT Note Date & Type Note Facility 02-15-2021 History of Present illness Narrative Dr. Gan, anesthesia, was contacted and informed of the patient's planned surgery, history, and unconfirmed abnormal EKG results from EKG done today in [facility]. Also reviewed stress test and echo from 05/2020 from [facility]. Medical clearance required. Surgery scheduling will notify Dr. Fuentes's office who will be responsible for making sure the clearance is obtained and is in the chart for surgery. documented in this encounter [facility] Phone: Discharge Instructions * Instructions* Amelia Renee [...] powder, deodorant, jewelry, piercings, perfume, makeup, nail yi, hair accessories, or hair spray on the day of surgery. Wear loose comfortable clothing. 4. Leave your valuables at home. Bring a storage case for any glasses/contacts. The Day of Surgery: Arrive at [facility] Surgery Entrance at the time directed by your surgeon and check in at the desk. If you have a living will or healthcare power of family medicine chair, please bring a copy. You will be taken to the pre-op holding area where you will be prepared for surgery. A physical assessment will be performed by a nurse practitioner or supervisor housecleaner. Your IV will be started and you [...] EKG results from EKG done today in [facility]. Medical clearance required. Surgery scheduling will notify Dr. Fuentes's office who will be responsible for making sure the clearance is obtained and is in the chart for surgery. 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 [facility]. provides no warranty or guarantee of the accuracy or completeness of information in this document.
== END 2024-03-04 12:16 | disposition home or self-care (01) ==
LOC: RAD 12:19
PROVIDERS: PCP Family Medicine; Visit Provider Family Medicine
DX: R60.0 Localized edema (principal)
CPT/HCPCS: 93971

== ENCOUNTER 2024-03-13 13:19 | Outpatient (OUT) | payer MEDICARE, SELFPAY ==
--- NOTE | 2024-03-13 | XR_ITS ---
The [address] [address] Patient Name: JERRY FINNEY MRN: [id number] date: 1945 Sex: F Assigned Patient Location: Current Patient Location: Accession/Order Number: [id number] Exam Date: 03/13/2024 13:22 Report Date: 03/13/2024 14:11 At the request of: DEEJAY COHEN Procedure: XR foot RT min 3V PROCEDURE: XR foot RT min 3V, XR ankle RT min 3V COMPARISON: None. HISTORY: RIGHT FOOT PAIN FINDINGS: BONES:No acute fracture or dislocation. Moderate hallux valgus. Moderate enthesopathic spurring of the calcaneus at the Achilles and plantar insertion . Mild to moderate degenerative changes most significant first metatarsal-phalangeal joint SOFT TISSUES:Moderate diffuse soft tissue swelling EFFUSION:None visible. OTHER: Negative. XR/XR foot RT min 3V IMPRESSION: Hallux valgus Soft tissue swelling Electronically authenticated by: LONNY CHADWICK Date: 03/13/2024 14:11
--- NOTE | 2024-03-13 | XR_ITS ---
The [address] [address] Patient Name: JERRY FINNEY MRN: [id number] date: 1945 Sex: F Assigned Patient Location: Current Patient Location: Accession/Order Number: [id number] Exam Date: 03/13/2024 13:22 Report Date: 03/13/2024 14:11 At the request of: DEEJAY COHEN Procedure: XR ankle RT min 3V PROCEDURE: XR foot RT min 3V, XR ankle RT min 3V COMPARISON: None. HISTORY: RIGHT FOOT PAIN FINDINGS: BONES:No acute fracture or dislocation. Moderate hallux valgus. Moderate enthesopathic spurring of the calcaneus at the Achilles and plantar insertion . Mild to moderate degenerative changes most significant first metatarsal-phalangeal joint SOFT TISSUES:Moderate diffuse soft tissue swelling EFFUSION:None visible. OTHER: Negative. XR/XR ankle RT min 3V IMPRESSION: Hallux valgus Soft tissue swelling Electronically authenticated by: LONNY CHADWICK Date: 03/13/2024 14:11
== END 2024-03-13 13:20 | disposition home or self-care (01) ==
LOC: EC 13:21
PROVIDERS: PCP Family Medicine; Visit Provider Physician Assistant
DX: M25.571 Pain in right ankle and joints of right foot (principal); M20.11 Hallux valgus (acquired), right foot
CPT/HCPCS: 73610; 73630

== ENCOUNTER 2024-03-25 08:36 | Inpatient (IN) | payer MEDICARE, SELFPAY ==
[2024-03-25] VITALS (12 sets, daily range): BP systolic 135–170; BP diastolic 64–87; PULSE 83–98; TEMP 36.8–37.3; O2SAT 94–100; BMI 26.6; BMI 22.5
--- NOTE | 2024-03-25 08:53 | ED_ITS ---
HPI HPI - Fall General Chief Complaint: Fall Stated Complaint: FALL Time Seen by Provider: 03/25/24 08:47 Source: patient and family Mode of arrival: ambulance Limitations: physical limitation History of Present Illness HPI Narrative: This patient is here with her family member. Apparently yesterday while trying to ambulate to using her bedside commode the commode gave way and she tumbled forward. Same thing happened today. Paramedics had been called. This patient lives with the son and then the daughter also visits in [facility] care as well. She has chronic pain in her back and her knees and her ankles. Her daughter says there is always some swelling and discomfort in these areas. She did not complain of pain hitting her head or neck. She is awake and alert and follows commands. The daughter does not see any difference in the level of consciousness. They did give her a tramadol today. She was in the wheelchair when the squad arrived. The daughter says she did not want to get out of the chair. Related Data Home Medications ?Medication ?Instructions ?Recorded ?Confirmed cetirizine 10 mg tablet 10 mg PO DAILY 05/29/23 06/06/23 hyoscyamine sulfate 0.125 mg 0.125 mg PO Q6H PRN abdominal 05/29/23 06/06/23 sublingual tablet discomfort levothyroxine 112 mcg tablet 112 mcg PO .before breakfast 05/29/23 06/06/23 lisinopril 10 mg tablet 10 mg PO DAILY 05/29/23 06/06/23 simvastatin 40 mg tablet 40 mg PO DAILY 05/29/23 06/06/23 Previous Rx's ?Medication ?Instructions ?Recorded calcitonin (salmon) 200 1 spray intranasal QD #3.7 mL 06/10/23 unit/actuation nasal spray calcium carbonate 600 mg PO TID #90 tabs 06/10/23 ciprofloxacin HCl 500 mg tablet 500 mg PO BID #10 tabs 06/10/23 hydroxyzine pamoate 25 mg capsule 25 mg PO QID PRN Anxiety #120 caps 06/10/23 tramadol 50 mg tablet 50 mg PO QID PRN pain #120 tabs 06/10/23 Allergies Allergy/AdvReac Type Severity Reaction Status Date / Time Iodinated Contrast Media Allergy Unknown Verified 05/29/23 11:34 diclofenac Allergy Verified 05/29/23 11:34 [From Arthrotec 50] misoprostol Allergy Verified 05/29/23 11:34 [From Arthrotec 50] levofloxacin AdvReac Intermediate Hives Verified 05/29/23 11:34 Penicillins AdvReac Intermediate Verified 05/29/23 11:34 Opioid HPI Opioid Management Most Recent Pain and Opioid Data: Last Pain Scale 6 06/10/23 09:28 Last Pain Intensity 8 06/09/23 09:20 PFSH PFSH Medical History Anxiety ?F41.9 - Anxiety disorder, unspecified (ICD-10) Arthritis ?M19.90 - Unspecified osteoarthritis, unspecified site (ICD-10) B12 deficiency ?E53.8 - Deficiency of other specified B group vitamins (ICD-10) Cervical radiculopathy ?M54.12 - Radiculopathy, cervical region (ICD-10) Compression fracture of L5 vertebra ?S32.050A - Wedge compression fracture of fifth lumbar vertebra, initial encounter for closed fracture (ICD-10) Diverticula of colon ?K57.30 - Diverticulosis of large intestine without perforation or abscess without bleeding (ICD-10) Fall ?W19.XXXA - Unspecified fall, initial encounter (ICD-10) Graves disease ?E05.00 - Thyrotoxicosis with diffuse goiter without thyrotoxic crisis or storm (ICD-10) Hypertension ?I10 - Essential (primary) hypertension (ICD-10) Low back pain ?M54.50 - Low back pain, unspecified (ICD-10) Osteopenia ?M85.80 - Other specified disorders of bone density and structure, unspecified site (ICD-10) Small bowel obstruction ?K56.609 - Unspecified intestinal obstruction, unspecified as to partial versus complete obstruction (ICD-10) Type 2 diabetes mellitus ?E11.9 - Type 2 diabetes mellitus without complications (ICD-10) Ventral hernia ?K43.9 - Ventral hernia without obstruction or gangrene (ICD-10) Surgical History (Updated 05/29/23 @ 11:44 by Mae Escoto RN) History of colon resection ?Z90.49 - Acquired absence of other specified parts of digestive tract (ICD- 10) History of cholecystectomy ?Z90.49 - Acquired absence of other specified parts of digestive tract (ICD- 10) Family History (Updated 06/07/23 @ 00:32 by Diane Mcmullen) Other Family history of CHF (congestive heart failure) Family history of cancer Family history of diabetes mellitus Family history of hypertension Social History Smoking status: Never smoker Gender Identity: female Exam Narrative Exam Narrative: This patient is here with her daughter who is very attentive. She is awake alert she has chronic pain in her back and knees from ongoing problems. Is difficult to determine if she has any new or acute symptomatology. Head and neck appear atraumatic with no bruises contusions or injury. She has no palpatory tenderness over the neck or head area. Phonation and swallowing respiratory effort are all unlabored. She has no stridor. Her lungs were clear and her heart sounds are normal. She does on the lower extremity examination have chronic soft tissue swelling on the left knee and less so on the right knee there is no acute hemarthrosis or bruising noted. She does not appear to have any soft tissue injury to the ankle or lower leg on either side. She complains of low back pain again acute versus chronic is difficult to determine. Constitutional Vital Signs, click to edit/add: Last Vital Signs Temp 98.4 F 03/25/24 08:39 Pulse 83 03/25/24 08:39 Resp 18 03/25/24 08:39 BP 139/81 03/25/24 08:39 Pulse Ox 96 03/25/24 08:39 O2 Del Method Room Air 03/25/24 08:39 Course Vital Signs Vital signs: Vital Signs Temperature 98.4 F 03/25/24 08:39 Pulse Rate 83 03/25/24 08:39 Respiratory Rate 18 03/25/24 08:39 Blood Pressure 139/81 03/25/24 08:39 Pulse Oximetry 96 03/25/24 08:39 Oxygen Delivery Method Room Air 03/25/24 08:39 Temperature 98.4 F 03/25/24 08:39 Pulse Rate 83 03/25/24 08:39 Respiratory Rate 18 03/25/24 08:39 Blood Pressure 139/81 03/25/24 08:39 Pulse Oximetry 96 03/25/24 08:39 Oxygen Delivery Method Room Air 03/25/24 08:39 MDM - Fall MDM Narrative Medical decision making narrative: This patient has had soft falls after trying to use a defective or any physician I should say bedside commode. The family has replaced that. They have family caregivers are home very attentive to her needs. Because her frailty and the falls we will do some imaging. There is no new neurovascular deficit. Images of her lumbar spine knee and pelvis were all done that shows severe degenerative changes and a number of old compression fractures. The radiologist does not believe any of these are acute. There was a suggestive of femur fracture but a CT does not disclose any new fracture. These x-rays were discussed with the daughter. She will be discharged in satisfactory condition Discharge Plan Discharge Chief Complaint: Fall Clinical Impression: Fall Patient Disposition: Home, Self-Care Time of Disposition Decision: 12:17 Mode of Transportation: Private Vehicle Prescriptions / Home Meds: No Action simvastatin 40 mg tablet 40 mg PO DAILY levothyroxine 112 mcg tablet 112 mcg PO .before breakfast lisinopril 10 mg tablet 10 mg PO DAILY hyoscyamine sulfate 0.125 mg tablet, sublingual 0.125 mg PO Q6H PRN (Reason: abdominal discomfort) cetirizine 10 mg tablet 10 mg PO DAILY ciprofloxacin HCl 500 mg Tablet 500 mg PO BID Qty: 10 0RF calcium carbonate 600 mg calcium (1,500 mg) Tablet 600 mg PO TID Qty: 90 11RF calcitonin (salmon) 200 unit/actuation [place],Non-Aerosol 1 spray intranasal QD Qty: 3.7 11RF hydroxyzine pamoate 25 mg Capsule 25 mg PO QID PRN (Reason: Anxiety) Qty: 120 11RF tramadol 50 mg tablet 50 mg PO QID PRN (Reason: pain) Qty: 120 2RF Print Language: Brazilian Additional Instructions: Continue present meds. Referrals: Pio Gibbs MD [Primary Care Provider] - 1 week
--- NOTE | 2024-03-25 08:54 | XR_ITS ---
The [address] [address] Patient Name: JERRY FINNEY MRN: [id number] date: 1945 Sex: F Assigned Patient Location: ER Current Patient Location: ER Accession/Order Number: [id number] Exam Date: 03/25/2024 09:20 Report Date: 03/25/2024 10:20 At the request of: CHAZ SMITH Procedure: XR knee MONCHO 2V EXAMINATION: XR knee MONCHO 2V HISTORY: fall COMPARISON: No relevant comparison available. FINDINGS: RIGHT FINDINGS: BONES: Complete loss of the lateral joint space with [id number] articulation. Large periarticular degenerative osteophytes. Moderate narrowing of the anterior compartment and small periarticular osteophytes. High riding patella. SOFT TISSUES: No visible soft tissue swelling. OTHER: Negative. LEFT FINDINGS: BONES: Marked narrowing of the medial joint space and anterior compartments. Large periarticular degenerative osteophytes. Separate bone fragment anterior articular margin of the medial femoral condyle on the lateral view versus summation artifact from the large periarticular degenerative osteophyte projecting along the articular margin. SOFT TISSUES: No visible soft tissue swelling. OTHER: Negative. XR/XR knee MONCHO 2V IMPRESSION: RIGHT CONCLUSION: Marked degenerative joint disease. No acute bone abnormality. LEFT CONCLUSION: Marked degenerative joint disease. Possible fracture fragment along the articular margin of the medial femoral condyle although I suspect this is summation artifact from a large degenerative osteophyte. Electronically authenticated by: SURYA MONTEMAYOR Date: 03/25/2024 10:20
--- NOTE | 2024-03-25 08:54 | XR_ITS ---
The [address] [address] Patient Name: JERRY FINNEY MRN: [id number] date: 1945 Sex: F Assigned Patient Location: ER Current Patient Location: ER Accession/Order Number: [id number] Exam Date: 03/25/2024 09:20 Report Date: 03/25/2024 10:22 At the request of: CHAZ SMITH Procedure: XR pelvis 1-2V PROCEDURE: XR pelvis 1-2V HISTORY: Fall COMPARISON: None. FINDINGS: BONES:Mild narrowing of the hip joint spaces bilaterally. No fracture, dislocation, bone lesion. Degenerative disc disease of the visible lumbar spine. Degenerative changes of the sacroiliac joints bilaterally. SOFT TISSUES:No visible soft tissue swelling. EFFUSION:None visible. OTHER: Negative. XR/XR pelvis 1-2V IMPRESSION: 1. Multifocal degenerative changes. 2. No appreciable acute abnormality. Electronically authenticated by: SURYA MONTEMAYOR Date: 03/25/2024 10:22
--- NOTE | 2024-03-25 08:55 | XR_ITS ---
The [address] [address] Patient Name: JERRY FINNEY MRN: [id number] date: 1945 Sex: F Assigned Patient Location: ER Current Patient Location: ER Accession/Order Number: [id number] Exam Date: 03/25/2024 09:20 Report Date: 03/25/2024 10:28 At the request of: CHAZ SMITH Procedure: XR lumbar spine 2-3V EXAMINATION: XR lumbar spine 2-3V HISTORY: fall COMPARISON: CT abdomen pelvis 06/06/2023 FINDINGS: BONES: Multilevel compression fractures, mild at T11, mild L2, moderate L3, and moderate-marked L4. Grade 1 retrolisthesis of L3 on 4. Multilevel moderate marked degenerative facet arthropathy. DISC SPACES: Multilevel mild narrowing. PARASPINOUS: Degenerative changes of the sacroiliac joints, right greater than left. OTHER: Negative. XR/XR lumbar spine 2-3V IMPRESSION: 1. Multilevel compression fractures. T11 is new since prior study but appears to be chronic. L4 is new since prior study and appears to be acute to subacute. L2 and L3 are stable. Electronically authenticated by: SURYA MONTEMAYOR Date: 03/25/2024 10:28
--- NOTE | 2024-03-25 10:48 | CT_ITS ---
[address] [address] Patient Name: JERRY FINNEY MRN: [id number] date: 1945 Sex: F Assigned Patient Location: ER Current Patient Location: ER Accession/Order Number: [id number] Exam Date: 03/25/2024 11:05 Report Date: 03/25/2024 11:42 At the request of: CHAZ SMITH Procedure: CT knee LT wo con EXAMINATION: CT knee LT wo con HISTORY: Fall COMPARISON: XR knee bilateral 03/25/2024 TECHNIQUE: Multi-planar CT images were created without and/or with IV contrast according to examination type. Dose reduction techniques were achieved by using automated exposure control and/or adjustment of mA and/or kV according to patient size and/or use of iterative reconstruction technique. FINDINGS: BONES: Complete loss of the medial joint space with [id number]-xmhb articulation. Complete loss of the lateral aspect of the anterior joint space with fijk-[id number]-xihq articulation. Large degenerative osteophytes along the articular margins of all 3 compartments. No fracture or dislocation. 2.2 cm soft tissue mass within the marrow cavity of the tibia at the diametaphyseal junction. Several are similar-appearing but smaller lesions seen within distal femoral metaphysis. No overlying cortical thickening or periosteal reaction. SOFT TISSUES: No visible soft tissue swelling. EFFUSION: Small joint effusion. OTHER: Negative. CT/CT knee LT wo con IMPRESSION: 1. No fracture or acute bone abnormality. 2. Marked degenerative joint disease. The questionable fracture fragments seen on today's knee radiographs were secondary to summation artifact of large periarticular degenerative osteophytes. 3. Nonspecific marrow cavity lesion within proximal tibia with several similar-appearing but smaller lesions within distal femur. Electronically authenticated by: SURYA MONTEMAYOR Date: 03/25/2024 11:42
[2024-03-25] MEDS: HYDROMORPHONE HCL 1 MG/ML CARTRIDGE IM (10:58)
--- NOTE | 2024-03-25 13:21 | PC.NURSE ---
pt assisted into wheelchair, pt unable to help at all. daughter states she normally can and is more alert and oriented. pt very fearful of falling even though she's in wheelchair. pt satews can you call the police to help me? Pt daughter states she hasn't ate anything all day. gatorade and crackers given, grilled cheese also ordered. pt then states she feels a little nauseous. daughter tearful and worried about how she's going to take pt home and into house. informed dr osullivan since daughter doesn't think manoj can get her home.
[2024-03-25 13:37] LABS: Bilirubin Urine NEGATIVE (NEGATIVE); Blood Urine NEGATIVE (NEGATIVE); Clarity Urine CLEAR (CLEAR); Color Urine YELLOW (YELLOW); Glucose Urine UA NEGATIVE (NEGATIVE); Ketones Urine NEGATIVE (NEGATIVE); Leukocyte Esterase Urine NEGATIVE (NEGATIVE); Nitrite Urine NEGATIVE (NEGATIVE); Protein Urine TRACE mg/dL (NEG/TRACE); Specific Gravity Urine 1.025 (1.005-1.025); Urine Microscopic Indicated NO; Urobilinogen Urine 0.2 EU/dL (0.2-1.0)
--- NOTE | 2024-03-25 14:01 | P.HP_ITS ---
HPI H&P: HPI History of Present Illness Chief complaint: FALL Narrative: 78 y o female, with chronic pain due to polyarthritis fell at home twice because her bedside commode broke while she was trying to pivot to get on the commode to use. Patient was brought in for evaluation as daughter could not get her into her wheelchair due to severe pain in multiple joints but mainly knees. Patient is very anxious, tearful and while not confused or acting different from her baseline, her speech is tangential. other than widespread pain, she has no active complaints to offer. ED had not ordered any w/u for her except for UA - that is not concerning for a UTI. Given her intractable pain, frequent falls, it is not unreasonable to monitor her overnight for pain control, PT/OT eval and work on safe disposition to her home. This was discussed with the daughter and patient and they both agree with plan of care. I ordered CBC, CMP to r/o any acute hematological/metabolic abnormalities. Opioid HPI Opioid Management Most Recent Pain and Opioid Data: Last Pain Scale 6 06/10/23 09:28 Last Pain Intensity 8 06/09/23 09:20 Review of Systems ROS Status of ROS 10 or more systems reviewed and unremark able except as noted in history and below [facility] Medical History (Updated 03/25/24 @ 14:09 by Shaikh Desmond MD) Chronic knee pain ?M25.569 - Pain in unspecified knee (ICD-10) ?G89.29 - Other chronic pain (ICD-10) Chronic lower back pain ?M54.50 - Low back pain, unspecified (ICD-10) ?G89.29 - Other chronic pain (ICD-10) Wheelchair dependence ?Z99.3 - Dependence on wheelchair (ICD-10) Hypothyroid ?E03.9 - Hypothyroidism, unspecified (ICD-10) HLD (hyperlipidemia) ?E78.5 - Hyperlipidemia, unspecified (ICD-10) Compression fx, lumbar spine ?S32.000A - Wedge compression fracture of unspecified lumbar vertebra, initial encounter for closed fracture (ICD-10) Acute kidney injury ?N17.9 - Acute kidney failure, unspecified (ICD-10) Acute UTI ?N39.0 - Urinary tract infection, site not specified (ICD-10) Nausea vomiting and diarrhea ?R11.2 - Nausea with vomiting, unspecified (ICD-10) ?R19.7 - Diarrhea, unspecified (ICD-10) Leukocytosis ?D72.829 - Elevated white blood cell count, unspecified (ICD-10) Fall ?W19.XXXA - Unspecified fall, initial encounter (ICD-10) Low back pain ?M54.50 - Low back pain, unspecified (ICD-10) B12 deficiency ?E53.8 - Deficiency of other specified B group vitamins (ICD-10) Ventral hernia ?K43.9 - Ventral hernia without obstruction or gangrene (ICD-10) Compression fracture of L5 vertebra ?S32.050A - Wedge compression fracture of fifth lumbar vertebra, initial encounter for closed fracture (ICD-10) Anxiety ?F41.9 - Anxiety disorder, unspecified (ICD-10) Hypertension ?I10 - Essential (primary) hypertension (ICD-10) Graves disease ?E05.00 - Thyrotoxicosis with diffuse goiter without thyrotoxic crisis or storm (ICD-10) Osteopenia ?M85.80 - Other specified disorders of bone density and structure, unspecified site (ICD-10) Small bowel obstruction ?K56.609 - Unspecified intestinal obstruction, unspecified as to partial versus complete obstruction (ICD-10) Diverticula of colon ?K57.30 - Diverticulosis of large intestine without perforation or abscess without bleeding (ICD-10) Arthritis ?M19.90 - Unspecified osteoarthritis, unspecified site (ICD-10) Cervical radiculopathy ?M54.12 - Radiculopathy, cervical region (ICD-10) Type 2 diabetes mellitus ?E11.9 - Type 2 diabetes mellitus without complications (ICD-10) Bronchitis ?J40 - Bronchitis, not specified as acute or chronic (ICD-10) Upper respiratory infection ?J06.9 - Acute upper respiratory infection, unspecified (ICD-10) Surgical History (Updated 05/29/23 @ 11:44 by Mae Escoto RN) History of colon resection ?Z90.49 - Acquired absence of other specified parts of digestive tract (ICD- 10) History of cholecystectomy ?Z90.49 - Acquired absence of other specified parts of digestive tract (ICD- 10) Family History (Updated 06/07/23 @ 00:32 by Diane Mcmullen) Other Family history of CHF (congestive heart failure) Family history of cancer Family history of diabetes mellitus Family history of hypertension Social History (Updated 03/25/24 @ 14:07 by Shaikh Desmond MD) Within the past year, how often did you have a drink containing alcohol: never Within the past year, how many standard drinks containing alcohol did you have on a typical day: 1 or 2 Within the past year, how often did you have six or more drinks on one occasion: never Total score: 0 Score interpretation: A score less than 3 is consistent with normal alcohol consumption. Smoking status: Never smoker Non-prescribed substance use: denies use Gender Identity: female Meds Home Medications and Allergies Home Medications ?Medication ?Instructions ?Recorded ?Confirmed ?Type levothyroxine 112 mcg tablet 112 mcg PO .before breakfast 05/29/23 03/25/24 History lisinopril 10 mg tablet 10 mg PO DAILY 05/29/23 03/25/24 History simvastatin 40 mg tablet 40 mg PO DAILY 05/29/23 03/25/24 History tramadol 50 mg tablet 50 mg PO Q8H PRN pain 03/25/24 03/25/24 History Allergies Allergy/AdvReac Type Severity Reaction Status Date / Time Iodinated Contrast Media Allergy Unknown Verified 05/29/23 11:34 diclofenac Allergy Verified 05/29/23 11:34 [From Arthrotec 50] misoprostol Allergy Verified 05/29/23 11:34 [From Arthrotec 50] levofloxacin AdvReac Intermediate Hives Verified 05/29/23 11:34 Penicillins AdvReac Intermediate Verified 05/29/23 11:34 Exam Constitutional Vital Signs, click to edit/add: Last Vital Signs Temp 98.4 F 03/25/24 08:39 Pulse 83 03/25/24 08:39 Resp 18 03/25/24 08:39 BP 139/81 03/25/24 08:39 Pulse Ox 96 03/25/24 08:39 O2 Del Method Room Air 03/25/24 08:39 Results Labs Labs: Urine 03/25/24 Range/Units 13:23 Urine Color Yellow (YELLOW) Urine Clarity Clear (CLEAR) Urine pH 6.0 (5.0-9.0) Ur Specific [place] 1.025 (1.005-1.025) Urine Protein Trace (NEG/TRACE) mg/dL Urine Glucose (UA) Negative (NEGATIVE) mg/dL Assessment and Plan Assessment and Plan (1) Fall: Qualifiers: Encounter type: subsequent encounter Qualified Code(s): W19.XXXD - Unspecified fall, subsequent encounter (2) Chronic lower back pain: Qualifiers: Back pain laterality: bilateral Sciatica presence: without sciatica Qualified Code(s): M54.50 - Low back pain, unspecified; G89.29 - Other chronic pain (3) Chronic knee pain: Qualifiers: Laterality: bilateral Qualified Code(s): M25.561 - Pain in right knee; M25.562 - Pain in left knee; G89.29 - Other chronic pain (4) Ambulatory dysfunction: (5) Wheelchair dependence: (6) Hypertension: Qualifiers: Hypertension type: primary hypertension Qualified Code(s): I10 - Essential (primary) hypertension (7) HLD (hyperlipidemia): Qualifiers: Hyperlipidemia type: unspecified Qualified Code(s): E78.5 - Hyperlipidemia, unspecified (8) Hypothyroid: Qualifiers: Hypothyroidism type: unspecified Qualified Code(s): E03.9 - Hypothyroidism, unspecified Plan Patient admitted for Pain control/ambulatory dysfunction. No sig finding on back/knee imaging except for possibly subacute compression fx of L4 vertebrae. Ordered PT/OT. Combination of oral/IV narcotics for pain control ordered. Ordered CBC/CMP to r.o acute metabolic/hematological abnormality Patient appears slightly dry - started on gentle IVF. Patient also very anxious and tearful. Continued home medications but also added xanax to help with her anxiety. Rest of patient's chronic medications for hypothyroidism/HTN/HLD continued.
[2024-03-25 14:23] LABS: Basophils Percent Auto 0.2 % (0.2-2.0); Hematocrit 30.3 % (36.0-48.0); Hemoglobin 9.7 g/dL (12.0-16.0); Immature Granulocytes Abs Auto 0.04 10^3/uL (0.00-0.03); Immature Granulocytes Pct Auto 0.5 % (0.0-0.5); Lymphocytes Absolute Auto 0.7 10^3/uL (1.2-3.8); Lymphocytes Percent Auto 7.6 % (20.5-60.0); Mean Corpuscular Hemoglobin 29.1 pg (26.7-34.0); Mean Platelet Volume 8.4 fL (9.5-13.5); Monocytes Absolute Auto 0.9 10^3/uL (0.3-0.8); Neutrophils Percent Auto 81.7 % (43.0-75.0); Platelet Count 162 10^3/uL (150-450); Red Blood Count 3.33 10^6/uL (4.20-5.40); Red Cell Distribution Width 12.3 % (11.0-15.0); White Blood Count 8.5 10^3/uL (4.0-11.0)
[2024-03-25 14:36] LABS: Alanine Aminotransferase 28 U/L (14-59); Albumin Globulin Ratio 0.8; Alkaline Phosphatase 110 U/L (46-116); Anion Gap 10.1; Aspartate Amino Transferase 32 U/L (15-37); BUN Creatinine Ratio 20.2; Bilirubin Total 0.6 mg/dL (0.2-1.0); Calcium 8.4 mg/dL (8.5-10.1); Carbon Dioxide 27.4 mmol/L (21.0-32.0); Chloride 101 mmol/L (98-107); Estimated GFR (African America 48 (>=60); Estimated GFR (Non-African Ame 40 (>=60); Globulin 3.6 g/dL; Glucose 188 mg/dL (74-106); Potassium 4.5 mmol/L (3.5-5.1); Sodium 134 mmol/L (136-145); Total Protein 6.6 g/dL (6.4-8.2)
--- OUTSIDE RECORDS SUMMARY | 2024-03-25 16:43 | XMS_ITS | CCD ---
Author Organization [facility] CliniSyct Care Team Providers Care Press Tender Long Goods Name Role Phone Marisel Gibbs Primary Care [...] REINECK, DR CHAZ Bautista Attending Unavailabl e MIKIY ., DR JOINER Primary Care Unavailable LUIS, [...] (antibiotic) (1 source) cefTRIAXone Drug Allergy 0 [facility] Diclofenac / miSOPROStol (1 source) Diclofenac / miSOPROStol Drug Allergy 0 [facility] Penicillins (antibiotic) (1 source) Penicillins Drug Allergy 2 [facility] (1 source) cefTRIAXone Drug Allergy 0 [place] (1 source) Diclofenac / miSOPROStol Drug Allergy 0 [place] (1 source) Penicillins Propensity to adverse reactions to drug 2 [place], [place] (2 sources) Iodides Propensity to adverse reactions to drug 0 [place] (2 sources) cefTRIAXone Drug Allergy 5 [facility] (1 source) Diclofenac / miSOPROStol Drug Allergy 3 [facility] (2 sources) Iodine (And Iodine Containting Drugs) Drug allergy (disorder) 4 [facility] (2 sources) Penicillin Drug Allergy [facility] Medications Current Medications Medication Drug Class(es) [...] Onset: 06-01-2022 Episodic Other aftercare (1 source) [facility] (current) use of aspirin; 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 Admission #: [id number] Family : Order #: [id number] CLICK HERE TO VIEW EXAM RADIOLOGY REPORT [...] QUALITY OF STUDY: Good. PERFUSION DEFECT: LOCATION: [place]. SIZE: Small (1-2 segments). SEVERITY: Mild. TYPE: [...] Chadwick MD on 09/28/2022 at 09:20 Normal [facility] ECHOCARDIO M/2D COMPLETEon 0 09-14-2022 ECHOCARDIO M/2D COMPLETE Patient: JERRY FINNEY Exam Date: 09/14/2022 : 1945 Gender:F Ordering : DR MARISEL GIBBS . Admission #: [id number] Family : Order #: [id number] CLICK HERE TO VIEW EXAM ECHOCARDIOGRAM REPORT [...] Klein M.D. on 09/14/2022 at 14:51 Normal [facility] MG MAMM SCREEN 3D MONCHO CADon 09-14-2022 MG MAMM SCREEN 3D MONCHO CAD Patient: JERRY FINNEY Exam Date: 09/14/2022 : 1945 Gender:F Ordering : DR MARISEL GIBBS . Admission #: [id number] Family : Order #: [id number] CLICK HERE TO VIEW EXAM RADIOLOGY REPORT [...] breast cancer at age 63. LOCATION: [facility] BREAST COMPOSITION: Heterogeneously dense,which may obscure small [...] MD on 09/14/2022 at 12:04 Normal [facility] BNPon 08-30-2022 Natriuretic peptide B (Bld) [Mass/Vol] 284.0 pg/mL Normal <=1,800.0 [facility] Comment on above: Performed By: #### L IPID, CMP, BNP, TSH, T7 #### [facility] [address] [address] [address] Rito Madison CBC AUTO DIFFon 08-30-2022 BASO # 0.0 103/ul Normal 0.0-0.1 [facility] Comment on above: Performed By: #### C BC ####[facility] [address] [id number]. Rito Madison Basophils/100 WBC (Bld) 0.4 % Normal 0.2-2.0 [facility] Comment on above: Performed By: #### C BC ####[facility] [address] [phone]. Rito Madison EO # 0.1 103/ul Normal 0.0-0.7 [facility] Comment on above: Performed By: #### C BC ####[facility] [address] [address]Dr. Rito Madison Eosinophils/100 WBC (Bld) 1.3 % Normal 0.9-7.0 [facility] Comment on above: Performed By: #### C BC ####[facility] [address] [place], [place] [address]Dr. Rito Madison Erythrocyte distribution width (RBC) [Ratio] 14.5 % Normal 11.0-15.0 [facility] Comment on above: Performed By: #### C BC ####[facility] [address] [place], [place] [id number]. Rito Madison Hematocrit (Bld) [Volume fraction] 43.7 % Normal 36.0-48.0 [facility] Comment on above: Performed By: #### C BC ####[facility] [address] [place], [place] [address]Dr. iRto Madison Hemoglobin (Bld) [Mass/Vol] 14.2 g/dL Normal 12.0-16.0 [facility] Comment on above: Performed By: #### C BC ####[facility] [address] [address]Dr. Rito Madison IG # 0.02 10e3/ul Normal 0.00-0.03 [facility] Comment on above: Performed By: #### C BC ####[facility] [address] [place], [place] [address]Dr. Rito Madison IG % 0.3 % Normal 0.0-0.5 [facility] Comment on above: Performed By: #### C BC ####[facility] [address] [id number]. Rito Madison LYMPH # 1.8 103/ul Normal 1.2-3.8 [facility] Comment on above: Performed By: #### C BC ####[facility] [address] [phone]. Rito Madison Lymphocytes/100 WBC (Bld) 22.9 % Normal 20.5-60.0 [facility] Comment on above: Performed By: #### C BC ####[facility] [address] [phone]. Rito Los MANUAL DIFF REQ NO Normal [facility] Comment on above: Performed By: #### C BC ####[facility] [address] [address]Dr. Rito Los MCH (RBC) [Entitic mass] 28.7 pg Normal 26.7-34.0 [facility] Comment on above: Performed By: #### C BC ####[facility] [address] [address]Dr. Rito Madison MCHC (RBC) [Mass/Vol] 32.5 g/dL Normal 29.9-35.2 [facility] Comment on above: Performed By: #### C BC ####[facility] [address] [phone]. Rito Los MCV (RBC) [Entitic vol] 88.5 fL Normal 81.0-99.0 [facility] Comment on above: Performed By: #### C BC ####[facility] [address] [phone]. Rito Los MONO # 0.5 103/ul Normal 0.3-0.8 [facility] Comment on above: Performed By: #### C BC ####[facility] [address] [address]Dr. iRto Los Monocytes/100 WBC (Bld) 6.4 % Normal 1.7-12.0 [facility] Comment on above: Performed By: #### C BC ####[facility] [address] [place], [place] [address]Lh. Rito Madison NEUT # 5.4 103/ul Normal 1.4-6.5 [facility] Comment on above: Performed By: #### C BC ####[facility] [address] [phone]. Rito Los Neutrophils/100 WBC (Bld) 68.7 % Normal 43.0-75.0 [facility] Comment on above: Performed By: #### C BC ####[facility] [address] [phone]. Rito Madison Platelet mean volume (Bld) [Entitic vol] 8.2 fL Critically low 9.5-13.5 [facility] Comment on above: Performed By: #### C BC ####[facility] [address] [phone]. Rito Madison PLT 238 103/ul Normal 150-450 [facility] Comment on above: Performed By: #### C BC ####[facility] [address] [phone]. Yolyjayda Madison RBC 4.94 106/ul Normal 4.20-5.40 [facility] Comment on above: Performed By: #### C BC ####[facility] [address] [place] [phone]. Rito Los WBC 7.8 103/ul Normal 4.0-11.0 [facility] Comment on above: Performed By: #### C BC ####[facility] [address] [phone] Yolyjayda Madison FREE THYROXINE INDEX T7on FTI 2.88 Normal 1.30-4.50 [facility] Comment on above: Performed By: #### L IPID, CMP, BNP, TSH, T7 #### [facility] [address] [place], [place] [address] Dr. Rito Madison T3U 36.0 % Normal 30.0-39.0 [facility] Comment on above: Performed By: #### L IPID, CMP, BNP, TSH, T7 #### [facility] [address] [address] [address] Rito Madison T4 [Mass/Vol] 8.00 ug/dL Normal 4.80-13.90 [facility] Comment on above: Performed By: #### L IPID, CMP, BNP, TSH, T7 #### [facility] [address] [address] [address] Rito Madison GLYCOHEMOGLOBIN A1Con 2022 ADA RECOMMENDATION SEE BELOW Normal [facility] Comment on above: Result Comment: ADA RECOMMENDED LIMIT 4.0 - 6.0 ADA THERAPEUTIC TARGET < 7.0 ACTION SUGGESTED > 7.0 Performed By: #### A 1C #### [facility] [address] [place] [address] Dr. Rito Madison Glucose [Mass/Vol] 111 mg/dL Normal [facility] Comment on above: Performed By: #### A 1C #### [facility] [address] [place] [address] Dr. Rito Madison HbA1c (Bld) [Mass fraction] 5.5 % Normal 4.5-6.2 [facility] Comment on above: Performed By: #### A 1C #### [facility] [address] [place] [address] Dr. Rito Madison IRONon 08-30-2022 Iron [Mass/Vol] 125.0 ug/dL Normal 50.0-170.0 [facility] Comment on above: Performed By: #### I VINAYAK ####[facility] [address] [address]Dr. Rito Madison LIPID PROFILEon 08-30-2022 CHOL-HDL RATIO NORM SEE BELOW Normal [facility] Comment on above: Result Comment: 3.3 - 4.4 LOW RISK 4.4 - 7.1 AVERAGE RISK 7.1 - 11.0 MODERATE RISK >11.0 HIGH RISK Performed By: #### L IPID, CMP, BNP, TSH, T7 #### [facility] [address] [address] [address] Rito Madison Cholesterol [Mass/Vol] 203 mg/dL Critically high <=200 [facility] Comment on above: Performed By: #### L IPID, CMP, BNP, TSH, T7 #### [facility] [address] [address] [address] Rito Madison Cholesterol in HDL [Mass/Vol] 79 mg/dL Critically high 40-60 [facility] Comment on above: Performed By: #### L IPID, CMP, BNP, TSH, T7 #### [facility] [address] [address] [address] Rito Madison Cholesterol in LDL [Mass/Vol] 108.6 mg/dL Normal [facility] Comment on above: Performed By: #### L IPID, CMP, BNP, TSH, T7 #### [facility] [address] [place] [address] Dr. Rito Madison Cholesterol.total/Vivian sterol in HDL [Mass ratio] 2.6 {ratio} Normal [facility] Comment on above: Performed By: #### L IPID, CMP, BNP, TSH, T7 #### [facility] [address] [address] [address] Rito Mdaison HDL NORMAL > or = 60 mg/dl - LO W CARDIOVASCULAR RISK <40 mg/dl - HIGH CARDIOVASCULAR RISK Normal [facility] Comment on above: Performed By: #### L IPID, CMP, BNP, TSH, T7 #### [facility] [address] [address] [address] Rito Madison LDL CALC NORMAL SEE BELOW Normal [facility] Comment on above: Result Comment: <100 mg/dl OPTIMAL 100 - 129 mg/dl NEAR OR ABOVE OPTIMAL 130 - 159 mg/dl BORDERLINE HIGH 160 - 189 mg/dl HIGH >190 mg/dl VERY HIGH Performed By: #### L IPID, CMP, BNP, TSH, T7 #### [facility] [address] [address] [address] Rito Madison Triglyceride [Mass/Vol] 77 mg/dL Normal <=150 [facility] Comment on above: Performed By: #### L IPID, CMP, BNP, TSH, T7 #### [facility] [address] [address] [address] Rito Madison VLDL CALC 15.4 mg/dL Normal [facility] Comment on above: Performed By: #### L IPID, CMP, BNP, TSH, T7 #### [facility] [address] [place] [address] Dr. Rito Madison PROF 14(COMP METB)on 023 Albumin [Mass/Vol] 3.6 g/dL Normal 3.4-5.0 [facility] Comment on above: Performed By: #### L IPID, CMP, BNP, TSH, T7 #### [facility] [address] [place] [address] Dr. Rito Madison Albumin/Globulin [Mass ratio] 1.0 {ratio} Normal [facility] Comment on above: Performed By: #### L IPID, CMP, BNP, TSH, T7 #### [facility] [address] [place] [address] Dr. Rito Madison ALP [Catalytic activity/Vol] 81 U/L Normal 46-116 [facility] Comment on above: Performed By: #### L IPID, CMP, BNP, TSH, T7 #### [facility] [address] [place] [address] Dr. Rito Madison ALT [Catalytic activity/Vol] 49 U/L Normal 14-59 [facility] Comment on above: Performed By: #### L IPID, CMP, BNP, TSH, T7 #### [facility] [address] [place] [address] Dr. Rito Madison Anion gap [Moles/Vol] 12.6 mmol/L Normal [facility] Comment on above: Performed By: #### L IPID, CMP, BNP, TSH, T7 #### [facility] [address] [place] [address] Dr. Rito Madison AST [Catalytic activity/Vol] 32 U/L Normal 15-37 [facility] Comment on above: Performed By: #### L IPID, CMP, BNP, TSH, T7 #### [facility] [address] [place] [address] Dr. Rito Madison Bilirubin [Mass/Vol] 0.7 mg/dL Normal 0.2-1.0 [facility] Comment on above: Performed By: #### L IPID, CMP, BNP, TSH, T7 #### [facility] [address] [place] [address] Dr. Rito Madison Calcium [Mass/Vol] 9.3 mg/dL Normal 8.5-10.1 [facility] Comment on above: Performed By: #### L IPID, CMP, BNP, TSH, T7 #### [facility] [address] [place] [address] Dr. Rito Madison Chloride [Moles/Vol] 103 mmol/L Normal 98-107 [facility] Comment on above: Performed By: #### L IPID, CMP, BNP, TSH, T7 #### [facility] [address] [place] [address] Dr. Rito Madison CO2 [Moles/Vol] 29.5 mmol/L Normal 21.0-32.0 [facility] Comment on above: Performed By: #### L IPID, CMP, BNP, TSH, T7 #### [facility] [address] [place] [address] Dr. Rito Madison Creatinine [Mass/Vol] 0.79 mg/dL Normal 0.55-1.02 [facility] Comment on above: Performed By: #### L IPID, CMP, BNP, TSH, T7 #### [facility] [address] [place] [address] Dr. Rito Madison EGFR-AF THAI >60 Normal >=60 [facility] Comment on above: Performed By: #### L IPID, CMP, BNP, TSH, T7 #### [facility] [address] [place] [address] Dr. Rito Madison EGFR-NON AF THAI >60 Normal >=60 [facility] Comment on above: Performed By: #### L IPID, CMP, BNP, TSH, T7 #### [facility] [address] [place] [address] Dr. Rito Madison Globulin (S) [Mass/Vol] 3.6 g/dL Normal [facility] Comment on above: Performed By: #### L IPID, CMP, BNP, TSH, T7 #### [facility] [address] [address] [address] Rito Madison Glucose [Mass/Vol] 88 mg/dL Normal 74-106 [facility] Comment on above: Performed By: #### L IPID, CMP, BNP, TSH, T7 #### [facility] [address] [place] [address] Dr. Rito Madison Potassium [Moles/Vol] 4.1 mmol/L Normal 3.5-5.1 [facility] Comment on above: Performed By: #### L IPID, CMP, BNP, TSH, T7 #### [facility] [address] [place] [address] Dr. Rito Madison Protein [Mass/Vol] 7.2 g/dL Normal 6.4-8.2 [facility] Comment on above: Performed By: #### L IPID, CMP, BNP, TSH, T7 #### [facility] [address] [place] [address] Dr. Rito Madison Sodium [Moles/Vol] 141 mmol/L Normal 136-145 [facility] Comment on above: Performed By: #### L IPID, CMP, BNP, TSH, T7 #### [facility] [address] [place] [address] Dr. Rito Madison Urea nitrogen [Mass/Vol] 17.0 mg/dL Normal 7.0-18.0 [facility] Comment on above: Performed By: #### L IPID, CMP, BNP, TSH, T7 #### [facility] [address] [place] [address] Dr. Rito Madison Urea nitrogen/Creatinine [Mass ratio] 21.5 mg/mg Normal [facility] Comment on above: Performed By: #### L IPID, CMP, BNP, TSH, T7 #### [facility] [address] [place] [address] Dr. Rito Madison TSHon 08-30-2022 TSH 4.464 uIU/mL Critically high 0.358-3.740 [facility] Comment on above: Performed By: #### L IPID, CMP, BNP, TSH, T7 #### [facility] [address] [place], [place] [address] Dr. Rito Madison CBC AUTO DIFFon 06-01-2022 BASO # 0.0 103/ul Normal 0.0-0.1 [facility] Comment on above: Performed By: #### C BC ####[facility] [address] [phone] Madison Basophils/100 WBC (Bld) 0.2 % Normal 0.2-2.0 [facility] Comment on above: Performed By: #### C BC ####[facility] [address] [address]DrAntonietta Madison EO # 0.1 103/ul Normal 0.0-0.7 [facility] Comment on above: Performed By: #### C BC ####[facility] [address] [address]DrAntonietta Madison Eosinophils/100 WBC (Bld) 1.5 % Normal 0.9-7.0 [facility] Comment on above: Performed By: #### C BC ####[facility] [address] [address]DrAntonietta Madison Erythrocyte distribution width (RBC) [Ratio] 12.9 % Normal 11.0-15.0 [facility] Comment on above: Performed By: #### C BC ####[facility] [address] [place] [phone] Madison Hematocrit (Bld) [Volume fraction] 44.4 % Normal 36.0-48.0 [facility] Comment on above: Performed By: #### C BC ####[facility] [address] [place] [phone] Madison Hemoglobin (Bld) [Mass/Vol] 14.7 g/dL Normal 12.0-16.0 [facility] Comment on above: Performed By: #### C BC ####[facility] [address] [address]DrAntonietta Madison IG # 0.03 10e3/ul Normal 0.00-0.03 [facility] Comment on above: Performed By: #### C BC ####[facility] [address] [address]Dr. Rito Madison IG % 0.3 % Normal 0.0-0.5 [facility] Comment on above: Performed By: #### C BC ####[facility] [address] [address]Dr. Yolyjayda Madison LYMPH # 1.7 103/ul Normal 1.2-3.8 [facility] Comment on above: Performed By: #### C BC ####[facility] [address] [address]Dr. Yolyjayda Madison Lymphocytes/100 WBC (Bld) 19.5 % Critically low 20.5-60.0 [facility] Comment on above: Performed By: #### C BC ####[facility] [address] [place], [place] [address]Dr. Rito Madison MANUAL DIFF REQ NO Normal [facility] Comment on above: Performed By: #### C BC ####[facility] [address] [place], [place] [address]Dr. Yolyjayda Madison MCH (RBC) [Entitic mass] 28.3 pg Normal 26.7-34.0 [facility] Comment on above: Performed By: #### C BC ####[facility] [address] [address]Dr. Yolyjayda Madison MCHC (RBC) [Mass/Vol] 33.1 g/dL Normal 29.9-35.2 [facility] Comment on above: Performed By: #### C BC ####[facility] [address] [place], [place] [address]Dr. Yolyjayda Madison MCV (RBC) [Entitic vol] 85.4 fL Normal 81.0-99.0 [facility] Comment on above: Performed By: #### C BC ####[facility] [address] [place], [place] [address]Dr. Rito Madison MONO # 0.7 103/ul Normal 0.3-0.8 [facility] Comment on above: Performed By: #### C BC ####[facility] [address] [place] [phone]. Rito Madison Monocytes/100 WBC (Bld) 8.3 % Normal 1.7-12.0 [facility] Comment on above: Performed By: #### C BC ####[facility] [address] [place] [phone]. Rito Madison NEUT # 6.3 103/ul Normal 1.4-6.5 [facility] Comment on above: Performed By: #### C BC ####[facility] [address] [address]Dr. Rito Madison Neutrophils/100 WBC (Bld) 70.2 % Normal 43.0-75.0 [facility] Comment on above: Performed By: #### C BC ####[facility] [address] [address]Dr. Rito Madison Platelet mean volume (Bld) [Entitic vol] 8.4 fL Critically low 9.5-13.5 [facility] Comment on above: Performed By: #### C BC ####[facility] [address] [place], [place] [address]Dr. Rito Madison PLT 295 103/ul Normal 150-450 [facility] Comment on above: Performed By: #### C BC ####[facility] [address] [address]Dr. Rito Madison RBC 5.20 106/ul Normal 4.20-5.40 [facility] Comment on above: Performed By: #### C BC ####[facility] [address] [phone]. Rito Madison WBC 8.9 103/ul Normal 4.0-11.0 [facility] Comment on above: Performed By: #### C BC ####[facility] [address] [address]DrAntonietta Rito Madison PROF CHEM 8 (BAS METB)on Anion gap [Moles/Vol] 9.8 mmol/L Normal [facility] Comment on above: Performed By: #### B MP #### [facility] [address] [address] [address] Rito Madison Calcium [Mass/Vol] 9.2 mg/dL Normal 8.5-10.1 [facility] Comment on above: Performed By: #### B MP #### [facility] [address] [address] [address] Rito Madison Chloride [Moles/Vol] 103 mmol/L Normal 98-107 [facility] Comment on above: Performed By: #### B MP #### [facility] [address] [address] [address] Rito Madison CO2 [Moles/Vol] 25.8 mmol/L Normal 21.0-32.0 [facility] Comment on above: Performed By: #### B MP #### [facility] [address] [address] [address] Rito Madison Creatinine [Mass/Vol] 0.86 mg/dL Normal 0.55-1.02 [facility] Comment on above: Performed By: #### B MP #### [facility] [address] [address] [address] Rito Madison EGFR-AF THAI >60 Normal >=60 [facility] Comment on above: Performed By: #### B MP #### [facility] [address] [address] [address] Rito Madison EGFR-NON AF THAI >60 Normal >=60 [facility] Comment on above: Performed By: #### B MP #### [facility] [address] [address] [address] Rito Madison Glucose [Mass/Vol] 109 mg/dL Critically high 74-106 [facility] Comment on above: Performed By: #### B MP #### [facility] [address] [address] [address] Rito Madison Potassium [Moles/Vol] 3.6 mmol/L Normal 3.5-5.1 [facility] Comment on above: Performed By: #### B MP #### [facility] [address] [address] [address] Rito Madison Sodium [Moles/Vol] 135 mmol/L Critically low 136-145 [facility] Comment on above: Performed By: #### B MP #### [facility] [address] [address] [address] Rito Madison Urea nitrogen [Mass/Vol] 14.0 mg/dL Normal 7.0-18.0 [facility] Comment on above: Performed By: #### B MP #### [facility] [address] [address] [address] Rito Madison Urea nitrogen/Creatinine [Mass ratio] 16.3 mg/mg Normal [facility] Comment on above: Performed By: #### B MP #### [facility] [address] [place] [address] Dr. Rito Madison AMYLASEon 05-07-2022 Amylase [Catalytic activity/Vol] 82 U/L Normal 25-115 [facility] Comment on above: Performed By: #### L IPA, CMP, TRINY ####[facility] [address] [address]Dr. Rito Madison CBC AUTO DIFFon 05-07-2022 BASO # 0.0 103/ul Normal 0.0-0.1 [facility] Comment on above: Performed By: #### C BC ####[facility] [address] [address]Dr. Rito Madison Basophils/100 WBC (Bld) 0.4 % Normal 0.2-2.0 [facility] Comment on above: Performed By: #### C BC ####[facility] [address] [place] [phone] Madison EO # 0.2 103/ul Normal 0.0-0.7 [facility] Comment on above: Performed By: #### C BC ####[facility] [address] [place] [phone]. Rito Madison Eosinophils/100 WBC (Bld) 2.0 % Normal 0.9-7.0 [facility] Comment on above: Performed By: #### C BC ####[facility] [address] [place] [address]Dr. Rito Madison Erythrocyte distribution width (RBC) [Ratio] 12.8 % Normal 11.0-15.0 [facility] Comment on above: Performed By: #### C BC ####[facility] [address] [address]Dr. Rito Madison Hematocrit (Bld) [Volume fraction] 42.7 % Normal 36.0-48.0 [facility] Comment on above: Performed By: #### C BC ####[facility] [address] [place], [place] [address]Dr. Rito Madison Hemoglobin (Bld) [Mass/Vol] 14.2 g/dL Normal 12.0-16.0 [facility] Comment on above: Performed By: #### C BC ####[facility] [address] [place], [place] [address]Dr. Rito Madisno IG # 0.03 10e3/ul Normal 0.00-0.03 [facility] Comment on above: Performed By: #### C BC ####[facility] [address] [place], [place] [address]Dr. Rito Madison IG % 0.4 % Normal 0.0-0.5 [facility] Comment on above: Performed By: #### C BC ####[facility] [address] [place], [place] [address]Dr. Rito Madison LYMPH # 2.2 103/ul Normal 1.2-3.8 [facility] Comment on above: Performed By: #### C BC ####[facility] [address] [place], [place] [address]Dr. Rito Madison Lymphocytes/100 WBC (Bld) 26.0 % Normal 20.5-60.0 [facility] Comment on above: Performed By: #### C BC ####[facility] [address] [place] [address]Dr. Rito Madison MANUAL DIFF REQ NO Normal [facility] Comment on above: Performed By: #### C BC ####[facility] [address] [place] [phone]. Rito Madison MCH (RBC) [Entitic mass] 29.2 pg Normal 26.7-34.0 [facility] Comment on above: Performed By: #### C BC ####[facility] [address] [place] [address]Dr. Rito Madison MCHC (RBC) [Mass/Vol] 33.3 g/dL Normal 29.9-35.2 [facility] Comment on above: Performed By: #### C BC ####[facility] [address] [place] [id number]. Rito Los MCV (RBC) [Entitic vol] 87.7 fL Normal 81.0-99.0 [facility] Comment on above: Performed By: #### C BC ####[facility] [address] [place], [place] [address]Dr. Rito Madison MONO # 0.8 103/ul Normal 0.3-0.8 [facility] Comment on above: Performed By: #### C BC ####[facility] [address] [place] [address]Dr. Yolyjayda Madison Monocytes/100 WBC (Bld) 9.2 % Normal 1.7-12.0 [facility] Comment on above: Performed By: #### C BC ####[facility] [address] [place], [place] [address]Dr. Yolyjayda Madison NEUT # 5.3 103/ul Normal 1.4-6.5 [facility] Comment on above: Performed By: #### C BC ####[facility] Chr[address]cnci[address] [place], [place] [address]Dr. Rito Madison Neutrophils/100 WBC (Bld) 62.0 % Normal 43.0-75.0 [facility] Comment on above: Performed By: #### C BC ####[facility] [address] [place], [place] [address]Dr. Rito Madison Platelet mean volume (Bld) [Entitic vol] 8.5 fL Critically low 9.5-13.5 [facility] Comment on above: Performed By: #### C BC ####[facility] [address] [place], [place] [address]Vz. Rito Madison PLT 291 103/ul Normal 150-450 [facility] Comment on above: Performed By: #### C BC ####[facility] T[address]offsqzz[address]74 [place], [place] [address]Nu. Rito Madison RBC 4.87 106/ul Normal 4.20-5.40 [facility] Comment on above: Performed By: #### C BC ####[facility] [address] [place], [place] [address]Yq. Rito Madison WBC 8.5 103/ul Normal 4.0-11.0 [facility] Comment on above: Performed By: #### C BC ####[facility] Evz[address]egxg[address] [place], [place] [address] ABD/PELVIS WO CONon 05-07 [...] CATHRYN OATES Date: 2022-05-07 06:53 Normal [facility] CULTURE URINEon 05-07-2022 CULTURE URINE Culture Observations : No growth Normal [facility] Comment on above: Performed By: #### U RCX ####[facility] [address]mprhhzb64[address] [place], [place] [address]QdAntonietta MARINO URINE PROFILEon 2 Bilirubin Ql (U) Negative Normal NEGATIVE [facility] Comment on above: Performed By: #### E TAMMY SANTIZO ####[facility] [address] [place] [address]Dr. Rito Madison Clarity (U) CLEAR Normal CLEAR [facility] Comment on above: Performed By: #### RUBEN MARIERO ####[facility] [address] [place], [place] [address]Dr. Yolyjayda Madison Color (U) LT. YELLOW Normal YELLOW [facility] Comment on above: Performed By: #### RUBEN MARIERO ####[facility] [address]ok[address] [place], [place] [address]Dr. Yolyjayda Madison ERUAHD A micrscopic examination will be performed if indicated. Normal [facility] Comment on above: Performed By: #### RUBEN MARIERO ####[facility] T[address] [place], [place] [address]Dr. Rito Madison Glucose Ql (U) Negative Normal NEGATIVE [facility] Comment on above: Performed By: #### MARV MARIEICRO ####[facility] [address]vw[address] [place], [place] [address]Dr. Yolyjayda Los Hemoglobin Ql (U) Negative Normal NEGATIVE [facility] Comment on above: Performed By: #### RUBEN MARIERO ####[facility] Hiybxz[address]ls[address] [place], [place] [address]Dr. Rito Madison Ketones Ql (U) Negative Normal NEGATIVE [facility] Comment on above: Performed By: #### MARV MARIEICRO ####[facility] [address]qpecddyv[address] [place], [place] [address]Dr. Rito Madison LEUKOCYTES MODERATE Abnormal NEGATIVE [facility] Comment on above: Performed By: #### MARV MARIEICRO ####[facility] Waqrctz[address] [place], [place] [address]Dr. Rito Madison Nitrite Ql (U) Negative Normal NEGATIVE [facility] Comment on above: Performed By: #### Jatinder SANTIZO UMICRO ####[facility] Tligdtlkec[address] [place], [place] [address]Dr. Rito Madison pH (U) 6.0 [pH] Normal 5-9 [facility] Comment on above: Performed By: #### RUBEN MARIERO ####[facility] [address] [place] [address]Dr. Rito Madison SPEC GRAVITY 1.015 Normal 1.005-<=1.025 [facility] Comment on above: Performed By: #### RUBEN MARIERO ####[facility] [address] [place] [address]Dr. Rito Madison UA PROTEIN Negative Normal NEGATIVE/ TRACE [facility] Comment on above: Performed By: #### Jatinder SANTIZO ICRO ####[facility] [address] [place] [address]Dr. Rito Madison UR MICRO IND INDICATED Normal [facility] Comment on above: Performed By: #### Jatinder SANTIZO DAVIERO ####[facility] Mgvtdtuflj[address] [place], [place] [address]Dr. Rito Madison Urobilinogen Qn (U) 0.2 {Scarlet'U}/dL Normal 0.2 - 1. 0 [facility] Comment on above: Performed By: #### Jatinder SANTIZO [facility] ####[facility] [address]ctqfjya[address] [place], [place] [address]Dr. Rito Madison LIPASEon 05-07-2022 Lipase [Catalytic activity/Vol] 171.0 U/L Normal 73.0-393.0 [facility] Comment on above: Performed By: #### L IPA, CMP, TRINY ####[facility] Fnojazuofa[address] [place], [place] [address]Dr. Rito Madison PROF 14(COMP METB)on 022 Albumin [Mass/Vol] 3.6 g/dL Normal 3.4-5.0 [facility] Comment on above: Performed By: #### L IPA, CMP, TRINY ####[facility] Mqpb[address]chlb[address] [place], [place] [address]Dr. Rito Madison Albumin/Globulin [Mass ratio] 0.9 {ratio} Normal [facility] Comment on above: Performed By: #### L IPA, CMP, TRINY ####[facility] Chtezzwdky[address] [place], [place] [address]Dr. Rito Madison ALP [Catalytic activity/Vol] 80 U/L Normal 46-116 [facility] Comment on above: Performed By: #### L IPA, CMP, TRINY ####[facility] [address] [place] [address]Dr. Rito Madison ALT [Catalytic activity/Vol] 22 U/L Normal 14-59 [facility] Comment on above: Performed By: #### L IPA, CMP, TRINY ####[facility] F[address]zrlwfx[address] [place], [place] [address]Dr. Rito Madison Anion gap [Moles/Vol] 9.1 mmol/L Normal [facility] Comment on above: Performed By: #### L IPA, CMP, TRINY ####[facility] Rydv[address]alnq[address] [place], [place] [address]Dr. Rito Madison AST [Catalytic activity/Vol] 25 U/L Normal 15-37 [facility] Comment on above: Performed By: #### L IPA, CMP, TRINY ####[facility] Kszxpngnew[address] [place], [place] [address]Dr. Rito Madison Bilirubin [Mass/Vol] 0.6 mg/dL Normal 0.2-1.0 [facility] Comment on above: Performed By: #### L IPA CMP, TRINY ####[facility] Djbpelafas[address] [place], [place] [address]Dr. Rito Madison Calcium [Mass/Vol] 9.1 mg/dL Normal 8.5-10.1 [facility] Comment on above: Performed By: #### L IPA, CMP, TRINY ####[facility] Brasnpmyyq[address] [place], [place] [address]Dr. Rito Madison Chloride [Moles/Vol] 104 mmol/L Normal 98-107 [facility] Comment on above: Performed By: #### L IPA, CMP, TRINY ####[facility] Ptjzsgenwr[address] [place], [place] [address]Dr. Rito Madison CO2 [Moles/Vol] 28.6 mmol/L Normal 21.0-32.0 [facility] Comment on above: Performed By: #### L IPA, CMP, TRINY ####[facility] [address] [place] [id number]. Rito Madison Creatinine [Mass/Vol] 0.80 mg/dL Normal 0.55-1.02 [facility] Comment on above: Performed By: #### L IPA, CMP, TRINY ####[facility] [address] [place] [id number]. Rito Madison EGFR-AF THAI >60 Normal >=60 [facility] Comment on above: Performed By: #### L IPA, CMP, TRINY ####[facility] [address] [place] [id number]. Rito Madison EGFR-NON AF THAI >60 Normal >=60 [facility] Comment on above: Performed By: #### L IPA, CMP, TRINY ####[facility] [address]klg[address] [place] [address]Dr. Rito Madison Globulin (S) [Mass/Vol] 3.9 g/dL Normal [facility] Comment on above: Performed By: #### L IPA, CMP, TRINY ####[facility] [address]ds[address] [place] [address]Dr. Rito Madison Glucose [Mass/Vol] 107 mg/dL Critically high 74-106 [facility] Comment on above: Performed By: #### L IPA, CMP, TRINY ####[facility] [address] [place] [address]Dr. Rito Madison Potassium [Moles/Vol] 3.7 mmol/L Normal 3.5-5.1 [facility] Comment on above: Performed By: #### L IPA, CMP, TRINY ####[facility] [address]eg[address] [place] [address]Dr. Rito Madison Protein [Mass/Vol] 7.5 g/dL Normal 6.4-8.2 [facility] Comment on above: Performed By: #### L IPA, CMP, TRINY ####[facility] [address] [place] [address]Dr. Rito Madison Sodium [Moles/Vol] 138 mmol/L Normal 136-145 [facility] Comment on above: Performed By: #### L IPA, CMP, TRINY ####[facility] [address]zg[address] [place] [address]Dr. Yolyjayda Los Urea nitrogen [Mass/Vol] 14.0 mg/dL Normal 7.0-18.0 [facility] Comment on above: Performed By: #### L IPA, CMP, TRINY ####[facility] [address] [place] [address]Dr. Rito Madison Urea nitrogen/Creatinine [Mass ratio] 17.5 mg/mg Normal [facility] Comment on above: Performed By: #### L IPA, CMP, TRINY ####[facility] [address] [place] [address]Dr. Rito Madison URINE MICROSCOPIC ONLYon BACTERIA NONE SEEN Normal NONE SEEN [facility] Comment on above: Performed By: #### Jatinder RUJojo UMICRO ####[facility] [address]kyaydbdc[address] [place], [place] [address]Dr. Rito Madison Bacteria identified Cx Nom (U) INDICATED Normal [facility] Comment on above: Performed By: #### Jatinder SANTIZO UMICRO ####[facility] [address]kwx[address]mkd[address] [place], [place] [address]Dr. Rito Madison CAST NONE SEEN Normal NONE SEEN [facility] Comment on above: Performed By: #### Jatinder SANTIZO UMICRO ####[facility] [address]af[address]vq[address] [place], [place] [address]Dr. Rito Madison Crystals LM Nom (Urine sed) NONE SEEN Normal NONE SEEN [facility] Comment on above: Performed By: #### E RUR, UMICRO ####[facility] [address] [place] [address]Dr. Rito Madison Epithelial cells LM Ql (Urine sed) FEW Abnormal NONE SEEN /RARE [facility] Comment on above: Performed By: #### E RUR, UMICRO ####[facility] [address] [place] [address]Dr. Rito Madison MUCOUS NONE SEEN Normal NONE SEEN [facility] Comment on above: Performed By: #### E RUR UMICRO ####[facility] [address]gy[address] [place], [place] [address]Mz. Rito Madison RBC 0-2 Normal 0-2 [facility] Comment on above: Performed By: #### TAMMY MARIE ####[facility] [address] [place], [place] [address]Jj. Rito Madison WBC 10-20 Abnormal NONE SEEN [facility] Comment on above: Performed By: #### TAMMY MARIE ####[facility] [address]ms[address]cv47[address] [place], [place] [address]Xg. Rito Madison MRI CSPINE WO CONon 03-23-20 [...] SURYA MONTEMAYOR Date: 2022-03-23 06:23 Normal [facility] XR CSPINE MIN 4 VIEWSon 08- XR [...] SURYA MONTEMAYOR Date: 2022-03-10 11:08 Normal [facility] EKG 12 LeadOrdered By: Taz Gan on 02-16-2021 Atrial Rate 58 BPM [employer] Phone: P Dennis 67 degrees [employer] Phone: P-R Interval 156 ms [employer] Phone: Q-T Interval 446 ms [employer] Phone: QRS Duration 112 ms [employer] Phone: QTc Calculation (Bazett) 437 ms [employer] Phone: [phone] R Dennis -75 degrees [employer] Phone: T Dennis 27 degrees [employer] Phone: Ventricular Rate 58 BPM [employer] Phone: Sinus bradycardia Left axis deviation Pulmonary disease pattern T wave abnormality, consider anterior ischemia Abnormal ECG When compared with ECG of 19-MAY-2020 14:49, Incomplete right bundle branch block is no longer Present T wave inversion no longer evident in Inferior leads T wave inversion no longer evident in Lateral leads [employer] Phone: Marlo, Mhpn Incoming Ekg Results From [facility] - 02/16/2021 9:14 AM EDT Sinus bradycardia Left axis deviation Pulmonary disease pattern T wave abnormality, consider anterior ischemia Abnormal ECG When compared with ECG of 19-MAY-2020 14:49, Incomplete right bundle branch block is no longer Present T wave inversion no longer evident in Inferior leads T wave inversion no longer evident in Lateral leads [facility] Phone: [employer] Phone: MRSA DNA Probe, NasalOrdered By: Chanel Fuentes on 02-16-2021 MRSA, DNA, Nasal NEGATIVE: MRSA DNA not detected by nucleic acid amplification. NEGATIVE: MRSA DNA not detected by nucleic acid amplificati [facility] Phone: Comment on above: Results should be used as an adjunct to nosocomial control efforts to identify patients needing enhanced precautions. The test is not intended to identify patients with staphylococcal infections. Results should not be used to guide or monitor treatment for MRSA infections. Specimen Description .NASAL SWAB [facility] [employer] Phone: [facility] Phone: MRSA, DNA, Nasalon MRSA, DNA, Nasal NEGATIVE: MRSA DNA not detected by nucleic acid amplification. Normal [facility] Comment on above: Result Comment: Results should be used as an adjunct to nosocomial control efforts to identify patients needing enhanced precautions. The test is not intended to identify patients with staphylococcal infections. Results should not be used to guide or monitor treatment for MRSA infections. Performed By: #### M RSANO #### [facility] [address] [place] [address] [employer] Firer: Rui Strauss DO [address] [place] [address] [employer] Firer: Brody Remy MD Basic Metabolic PanelOrdered By: Taz Gan on 02-15-2021 Anion gap [Moles/Vol] 7 mmol/L Low 9 - 17 mmol/L [employer] Phone: Calcium [Mass/Vol] 9.0 mg/dL 8.6 - 10. 4 mg/dL [employer] Phone: Chloride [Moles/Vol] 103 mmol/L 98 - 10 7 mmol/L [employer] Phone: CO2 [Moles/Vol] 30 mmol/L 20 - 31 mmol/L [employer] Phone: Creatinine [Mass/Vol] 0.61 mg/dL 0.50 - 0.90 mg/dL [employer] Phone: GFR >60 >60 mL/min Lela Phone: GFR Non- >60 >60 mL/min [employer] Phone: GFR/1.73 sq M.predicted MDRD (S/P/Bld) [Vol rate/Area] [employer] Phone: Comment on above: Average GFR for 70 o r more years old: 75 mL/min/1.73sq m Chronic Kidney Disease: <60 mL/min/1.73sq m Kidney failure: <15 mL/min/1.73sq m eGFR calculated using average adult body mass. Additional eGFR calculator available at: http://www.[employer].com/multiple_crcl_2012.htm GFR/1.73 sq M.predicted MDRD (S/P/Bld) [Vol rate/Area] NOT REPORTED [employer] Phone: Glucose [Mass/Vol] 95 mg/dL 70 - 99 mg/dL [facility] [employer] Phone: Interpretation and review of laboratory results Abnormal [facility] Phone: Potassium [Moles/Vol] 4.1 mmol/L 3.7 - 5.3 mmol/L [facility] Phone: Sodium [Moles/Vol] 140 mmol/L 135 - 144 mmol/L [facility] Phone: Urea nitrogen (BldV) [Mass/Vol] 16 mg/dL 8 - 23 mg/dL [facility] Phone: Urea nitrogen/Creatinine (Bld) [Mass ratio] NOT REPORTED [facility] Phone: [employer] Phone: Basic Metabolic Profon 02-15 (cont.) Normal [facility] Comment on above: Result Comment: Aver age GFR for 70 or more years old: 75 mL/min/1.73sq m Chronic Kidney Disease: <60 mL/min/1.73sq m Kidney failure: <15 mL/min/1.73sq m eGFR calculated using average adult body mass. Additional eGFR calculator available at: http://www.[employer].hetras/multiple_crcl_2012.htm Performed By: #### B ROSSI, CDP #### [facility] [address] [place], [place] [id number] [employer] Firer: Rui Strauss DO Anion gap [Moles/Vol] 7 mmol/L Low 9-17 [facility] Comment on above: Performed By: #### B ROSSI, CDP #### [facility] [address] [place], [place] [id number] [employer] Firer: Rui Strauss DO Calcium [Mass/Vol] 9.0 mg/dL Normal 8.6-10.4 [facility] Comment on above: Performed By: #### B ROSSI, CDP #### [facility] [address] [place] [address] [employer]r: Rui Strauss DO Chloride [Moles/Vol] 103 mmol/L Normal 98-107 [facility] Comment on above: Performed By: #### B ROSSI, CDP #### [facility] [address] [place] [address] [employer]r: Rui Strauss DO CO2 [Moles/Vol] 30 mmol/L Normal 20-31 [facility] Comment on above: Performed By: #### B ROSSI, CDP #### [facility] [address] [place] [address] [employer]r: Rui Strauss DO Creatinine [Mass/Vol] 0.61 mg/dL Normal 0.50-0.90 [facility] Comment on above: Performed By: #### B ROSSI, CDP #### [facility] [facility] [place] [address] [employer]r: Rui Strauss DO GFR, Amer >60 Normal >60 [facility] Comment on above: Performed By: #### B ROSSI, CDP #### [facility] [facility] [place] [address] [employer]r: Rui Strauss DO GFR,non Amer >60 Normal >60 [facility] Comment on above: Performed By: #### B ROSSI, CDP #### [facility] [place] [address] [employer]r: Rui Strauss DO Glucose [Mass/Vol] 95 mg/dL Normal 70-99 [facility] Comment on above: Performed By: #### B ROSSI, CDP #### [facility] [place] [address] [employer]r: Rui Strauss DO Potassium [Moles/Vol] 4.1 mmol/L Normal 3.7-5.3 [facility] Comment on above: Performed By: #### B ROSSI, CDP #### [facility] [address] [place] [address] [employer]r: Rui Strauss DO Sodium [Moles/Vol] 140 mmol/L Normal 135-144 [facility] Comment on above: Performed By: #### B ROSSI, CDP #### [facility] [address] [facility] [place] [address] [employer]r: Rui Staruss DO Urea nitrogen [Mass/Vol] 16 mg/dL Normal 8-23 [facility] Comment on above: Performed By: #### B ROSSI, CDP #### [facility] [address] [facility] [place] [address] [employer]r: Rui Strauss DO BUN/CRE Ratio NOT REPORTED Normal 9-20 [facility] Comment on above: Performed By: #### B ROSSI, CDP #### [facility] [address] [facility] [place] [address] [employer]r: Rui Strauss DO Staging: NOT REPORTED Normal [facility] Comment on above: Performed By: #### B ROSSI, CDP #### [facility] [address] [facility] [place] [address] [employer]r: Rui Strauss DO CBC Auto DifferentialOrdered By: Taz Gan on 02-15-2021 Absolute Eos # 0.10 [employer] Phone: Absolute Immature Granulocyte NOT REPORTED [employer] Phone: Absolute Lymph # 1.90 [employer] Phone: Absolute Bethel # 0.60 [employer] Phone: Basophils (Bld) [#/Vol] 0.00 10*3/uL [employer] Phone: Basophils/100 WBC (Bld) 0 % 0 - 2 % M Seen Phone: Differential Type NOT REPORTED [employer] Phone: Eosinophils/100 WBC (Bld) 1 % 0 - 4 % [employer] Phone: Hematocrit (Bld) [Volume fraction] 37.1 % 36 - 46 % [employer] Phone: Hemoglobin.gastrointest inal spec 1 Ql (Stl) 12.6 g/dL 12.0 - 16.0 g/dL [employer] Phone: Immature Granulocytes NOT REPORTED 0 % M Seen Phone: Interpretation and review of laboratory results Abnormal [employer] Phone: Lymphocytes/100 WBC (Bld) 28 % 24 - 44 % [employer] Phone: MCH (RBC) [Entitic mass] 36.5 pg High 26 - 34 pg [employer] Phone: MCHC (RBC) [Mass/Vol] 34.0 g/dL 31 - 37 g/dL M Seen Phone: MCV (RBC) [Entitic vol] 107.3 fL High 80 - 100 fL [employer] Phone: Monocytes/100 WBC (Bld) 8 % High 1 - 7 % M Seen Phone: NRBC Automated NOT REPORTED per 100 WBC [employer] Phone: Platelet distribution width (Bld) [Ratio] 15.9 % High 11.5 - 14.9 % [employer] Phone: Platelet Estimate NOT REPORTED [employer] Phone: Platelet mean volume (Bld) [Entitic vol] 6.5 fL 6.0 - 12.0 fL [employer] Phone: Platelets (Bld) [#/Vol] 292 10*3/uL [employer] Phone: RBC (Bld) [#/Vol] 3.46 10*6/uL Low 4.0 - 5.2 m/uL M Seen Phone: RBC (Bld) [#/Vol] NOT REPORTED [employer] Phone: Segmented neutrophils/100 WBC (Bld) 63 % 36 - 66 % [employer] Phone: Segs Absolute 4.20 [employer] Phone: WBC (Bld) [#/Vol] 6.7 10*3/uL [employer] Phone: WBC (Bld) [#/Vol] NOT REPORTED [employer] Phone: [employer] Phone: CBC with Diffon 02-15-2021 Abs. Basophil 0.00 k/uL Normal 0.0-0.2 [facility] Comment on above: Performed By: #### B ROSSI, CDP #### [facility] [address] [place] [address] [employer]r: Rui Strauss DO Abs.Neutrophil (Seg) 4.20 k/uL Normal 1.3-9.1 [facility] Comment on above: Performed By: #### B ROSSI, CDP #### [facility] [address] [place] [address] [employer]r: Rui Strauss DO Basophils/100 WBC (Bld) 0 % Normal 0-2 M [facility] Comment on above: Performed By: #### B ROSSI, CDP #### [facility] [address] [place] [address] [employer]r: Rui Strauss DO Eosinophils (Bld) [#/Vol] 0.10 10*3/uL Normal 0.0-0.4 [facility] Comment on above: Performed By: #### Lazaro RICHEY, CDP #### [facility] [address] [place] [address] [employer]r: Rui Strauss DO Eosinophils/100 WBC (Bld) 1 % Normal 0-4 [facility] Comment on above: Performed By: #### B ROSSI, CDP #### [facility] [address] [place] [address] [employer]r: Rui Strauss DO Erythrocyte distribution width (RBC) [Ratio] 15.9 % High 11.5-14.9 [facility] Comment on above: Performed By: #### Lazaro RICHEY, CDP #### [facility]0 [facility] [place] [address] [employer]r: Rui Strauss DO Hematocrit (Bld) [Volume fraction] 37.1 % Normal 36-46 [facility] Comment on above: Performed By: #### Lazaro RICHEY, CDP #### [facility] [place] [address] [employer]r: Rui Strauss DO Hemoglobin (Bld) [Mass/Vol] 12.6 g/dL Normal 12.0-16.0 [facility] Comment on above: Performed By: #### Lazaro RICHEY, CDP #### [facility]0 [facility] [place] [address] [employer]r: Rui Strauss DO Lymphocytes (Bld) [#/Vol] 1.90 10*3/uL Normal 1.0-4.8 [facility] Comment on above: Performed By: #### B ROSSI, CDP #### [facility] [place] [address] [employer]r: Rui Strauss DO Lymphocytes/100 WBC (Bld) 28 % Normal 24-44 [facility] Comment on above: Performed By: #### B ROSSI, CDP #### [facility] [place] [address] [employer]r: Rui Strauss DO MCH (RBC) [Entitic mass] 36.5 pg High 26-34 [facility] Comment on above: Performed By: #### B ROSSI, CDP #### [facility] [place] [address] [employer]r: Rui Strauss DO MCHC (RBC) [Mass/Vol] 34.0 g/dL Normal 31-37 [facility] Comment on above: Performed By: #### Lazaro RICHEY, CDP #### [facility] [address] [place] [address] [employer] Firer: Rui Strauss DO MCV (RBC) [Entitic vol] 107.3 fL High 80-100 M [facility] Comment on above: Performed By: #### Lazaro RICHEY, CDP #### [facility] [address] [place] [address] [employer]: Rui Strauss DO Monocytes (Bld) [#/Vol] 0.60 10*3/uL Normal 0.1-1.3 [facility] Comment on above: Performed By: #### B ROSSI, CDP #### [facility] [place] [address] [employer]: Rui Strauss DO Monocytes/100 WBC (Bld) 8 % High 1-7 M [facility] Comment on above: Performed By: #### B ROSSI, CDP #### [facility] [address] [place] [address] [employer]: Rui Strauss DO Neutrophil (Seg) 63 % Normal 36-66 [facility] Comment on above: Performed By: #### Lazaro RICHEY, CDP #### [facility] [address] [place], [place] [address] [address] [employer]: Rui Strauss DO Platelet mean volume (Bld) [Entitic vol] 6.5 fL Normal 6.0-12.0 [facility] Comment on above: Performed By: #### Lazaro RICHEY, CDP #### [facility] [address] [place] [address] [employer]: Rui Strauss DO Platelets (Bld) [#/Vol] 292 10*3/uL Normal 150-450 [facility] Comment on above: Performed By: #### Lazaro RICHEY, CDP #### [facility] [address] [place] [address] [employer]: Rui Strauss DO RBC (Bld) [#/Vol] 3.46 10*6/uL Low 4.0-5.2 [facility] Comment on above: Performed By: #### Lazaro RICHEY, CDP #### [facility] [address] [place] [address] [employer]: Rui Strauss DO WBC (Bld) [#/Vol] 6.7 10*3/uL Normal 3.5-11.0 [facility] Comment on above: Performed By: #### B ROSSI, CDP #### [facility] [address] [place] [address] [employer]: Rui Strauss DO Abs.Imm.Granulocyte NOT REPORTED Normal 0.00-0.30 [facility] Comment on above: Performed By: #### Lazaro RICHEY, CDP #### [facility] [address] [place] [address] [employer]: Rui Strauss DO Auto Diff Performed NOT REPORTED Normal [facility] Comment on above: Performed By: #### B MP, CDP #### [facility] [address] [place] [address] [employer]: Rui Strauss DO Immature Granulocyte NOT REPORTED Normal 0 [facility] Comment on above: Performed By: #### B MP, CDP #### [facility] [address] [place] [address] [employer]: Rui Strauss DO NRBC Automated NOT REPORTED Normal [facility] Comment on above: Performed By: #### B ROSSI, CDP #### [facility] [address] [place] [address] [employer]: Rui Strauss DO Platelet Estimate NOT REPORTED Normal [facility] Comment on above: Performed By: #### B ROSSI, CDP #### [facility] [address] [place] [address] [employer]: Rui Strauss DO RBC morphology finding Nom (Bld) NOT REPORTED Normal [facility] Comment on above: Performed By: #### B ROSSI, CDP #### [facility] [place] [address] [employer]: Rui Strauss DO WBC Morphology NOT REPORTED Normal [facility] Comment on above: Performed By: #### B ROSSI, CDP #### [facility] [place] [address] [employer]: Rui Strauss DO MRSA, DNA, Nasalon 1 Specimen Description .NASAL SWAB Normal [facility] Comment on above: Performed By: #### M RSANO #### [facility] [address] [place] [address] [employer]: Rui Strauss DO [facility] [address] [place] [address] [employer]: Brody Remy MD Microscopic UrinalysisOrdere d By: Taz Gan on 02-15-2021 - [employer] Work Phone: Amorphous, UA NOT REPORTED None [employer] Phone: Bacteria, UA FEW Abnormal None [employer] Phone: Casts UA NOT REPORTED /LPF [employer] Work Phone: Crystals, UA NOT REPORTED None /[facility] Work Phone: Epithelial Cells UA 10 TO 20 /HPF [facility] Phone: Interpretation and review of laboratory results Abnormal [employer] Phone: Mucus, UA NOT REPORTED None [facility] Phone: Other Observations UA NOT REPORTED NOT REQ. [facility] [employer] Work Phone: RBC, UA 0 TO 2 /HPF [facility] [employer] Work Phone: Renal Epithelial, UA NOT REPORTED 0 /HPF [facility] [employer] Work Phone: Trichomonas, UA NOT REPORTED None [facility] Phone: WBC, UA 5 TO 10 /HPF [facility] [employer] Work Phone: Yeast, UA NOT REPORTED None [facility] Phone: [facility] [employer] Work Phone: UA w/Reflex Cultureon 2020 Bilirubin, SemiQt,Ur Negative Normal NEG [facility] Comment on above: Performed By: #### U MICAO, UAX #### [facility] [address] [place] [address] [employer]: Rui Strauss DO Blood, Urine Negative Normal NEG [facility] Comment on above: Performed By: #### U MICAO, UAX #### [facility] [address] [place] [facility] [place] [address] [employer]: Rui Strauss DO Clarity (U) CLEAR Normal CLEAR [facility] Comment on above: Performed By: #### U MICAO, UAX #### [facility] [address] [facility] [place] [address] [employer]: Rui Strauss DO Color (U) YELLOW Normal YEL [facility] Comment on above: Performed By: #### U MICAO, UAX #### [facility] [address] [facility] [place] [address] [employer]: Rui Strauss DO Glucose Ql (U) Negative Normal NEG [facility] Comment on above: Performed By: #### U MICAO, UAX #### [facility] [address] [facility] [place] [address] [employer]: Rui Strauss DO Ketones Ql (U) Negative Normal NEG [facility] Comment on above: Performed By: #### U MICAO, UAX #### [facility] [address] [facility] [place] [address] [employer]: Rui Strauss DO Leukocyte esterase Test strip Ql (U) SMALL Abnormal NEG [facility] Comment on above: Performed By: #### U MICAO, UAX #### [facility] [address] [facility] [place] [address] [employer]: Rui Strauss DO Nitrite,Ur Negative Normal NEG [facility] Comment on above: Performed By: #### U MICAO, UAX #### [facility] [address] [place] [facility] [place] [address] [employer]: Rui Strauss DO PH,Ur 5.5 Normal 5.0-8.0 [facility] Comment on above: Performed By: #### U SABRAO, UAX #### [facility] [address] [facility] [place] [address] [employer]: Rui Strauss DO Protein Ql (U) Negative Normal NEG [facility] Comment on above: Performed By: #### U SABRAO, UAX #### [facility] [address] [place] [address] [employer]: Rui Strauss DO Spec. [place],Ur 1.022 Normal 1.000-1.030 [facility] Comment on above: Performed By: #### U SABRAO, UAX #### [facility] [address] [place] [address] [employer]: Rui Strauss DO Urobilinogen,Ur Normal Normal NORM [facility] Comment on above: Performed By: #### U JEMIMA, UAX #### [facility] [address] [place] [address] [employer]: Rui Strauss DO Comment NOT REPORTED Normal [facility] Comment on above: Performed By: #### U SABRAO, UAX #### [facility] [address] [place] [address] [employer]: Rui Strauss DO Urinalysis Reflex to Culture Ordered By: Taz Gan on 02-15-2021 Bilirubin Urine Negative NEGATIVE [employer] Phone: Color, UA YELLOW YELLOW [employer] Work Phone: Glucose, Ur Negative NEGATIVE [employer] Phone: Interpretation and review of laboratory results Abnormal [employer] Phone: Ketones Ql (U) Negative NEGATIVE [employer] Phone: Leukocyte esterase Test strip Ql (U) SMALL Abnormal NEGATIVE [employer] Phone: Nitrite, Urine Negative NEGATIVE [employer] Work Phone: pH, UA 5.5 [employer] Work Phone: Protein, UA Negative NEGATIVE [employer] Phone: Specific [place], UA 1.022 [employer] Work Phone: Turbidity UA CLEAR CLEAR [employer] Work Phone: Urinalysis Comments NOT REPORTED [facility] [employer] Work Phone: Urine Hgb Negative NEGATIVE [employer] Phone: Urobilinogen, Urine Normal Normal [facility]: [employer] Phone: Urinalysis,Microon 1 ----- Normal [facility] Comment on above: Performed By: #### AWAIS ALMAZANX #### [facility] [address] [place] [address] [employer]: Rui Strauss DO Bacteria FEW Abnormal NONE [facility] Comment on above: Performed By: #### AWAIS ALMAZANX #### [facility] [address] [place] [address] [employer]: Rui Strauss DO Epithelial cells LM Ql (Urine sed) 10 TO 20 Normal [facility] Comment on above: Performed By: #### AWAIS ALMAZANX #### [facility] [address] [place] [address] [employer]: Rui Strauss DO Urine RBC's 0 TO 2 Normal [facility] Comment on above: Performed By: #### AWAIS ALMAZANX #### [facility] [address] [facility] [place] [address] [employer]: Rui Strauss DO Urine WBC's 5 TO 10 Normal [facility] Comment on above: Performed By: #### U SABRAO, UAX #### [facility] [address] [facility] [place] [address] [employer]: Rui Strauss DO Amorphous sediment LM Ql (Urine sed) NOT REPORTED Normal NONE [facility] Comment on above: Performed By: #### U JEMIMA UAX #### [facility]0 [facility] [place] [address] [employer]: Rui Strauss DO Casts NOT REPORTED Normal [facility] Comment on above: Performed By: #### Tony ONOFRE UAX #### [facility]0 [facility] [place] [address] [employer]: Rui Strauss DO Crystals LM Nom (Urine sed) NOT REPORTED Normal NONE [facility] Comment on above: Performed By: #### U JEMIMA, UAX #### [facility] [address] [facility] [place] [address] [employer]: Rui Strauss DO Epithelial, Renal NOT REPORTED Normal 0 [facility] Comment on above: Performed By: #### U JEMIMA, UAX #### [facility] [address] [facility] [place] [address] [employer]: Rui Strauss DO Mucus Strands NOT REPORTED Normal NONE [facility] Comment on above: Performed By: #### U JEMIMA, UAX #### [facility] [address] [facility] [place] [address] [employer]: Rui Strauss DO Other Observations NOT REPORTED Normal NREQ [facility] Comment on above: Performed By: #### U MICAO, UAX #### [facility] [address] [facility] [place] [address] [employer]: Rui Strauss DO Trichomonas NOT REPORTED Normal NONE [facility] Comment on above: Performed By: #### U MICAO, UAX #### [facility] [address] [facility] [place] [address] [employer]: Rui Strauss DO Yeast NOT REPORTED Normal NONE [facility] Comment on above: Performed By: #### U MICAO, UAX #### [facility] [address] [facility] [place] [address] [employer]: Rui Strauss DO EKG 12 Leadon 05-21-2020 Atrial Rate 66 BPM [place] P Dennis 54 degrees [place] P-R Interval 132 ms [place] Q-T Interval 420 ms [place] QRS Duration 100 ms [place] QTc Calculation (Bazett) 440 ms [place] R Dennis -89 degrees [facility], [place] T Dennis -20 degrees [place] Urea nitrogen [Mass/Vol] Normal sinus rhythm Left axis deviation Incomplete right bundle branch block ST & T wave abnormality, consider anterolateral ischemia Abnormal ECG No previous ECGs available [place] Ventricular Rate 66 BPM [place] Marlo, Mhpn Incoming Ekg Results From [facility] - 05/21/2020 9:08 AM EST Normal sinus rhythm Left axis deviation Incomplete right bundle branch block ST & T wave abnormality, consider anterolateral ischemia Abnormal ECG No previous ECGs available [place] MRSA DNA Probe, Nasalon - MRSA, DNA, Nasal NEGATIVE: MRSA DNA not detected by nucleic acid amplification. NEGATIVE: MRSA DNA not detected by nucleic acid amplificati [place] Comment on above: Results should be used as an adjunct to nosocomial control efforts to identify patients needing enhanced precautions. The test is not intended to identify patients with staphylococcal infections. Results should not be used to guide or monitor treatment for MRSA infections. Specimen Description .NASAL SWAB [place] MRSA, DNA, Nasalon 0 MRSA, DNA, Nasal NEGATIVE: MRSA DNA not detected by nucleic acid amplification. Normal NMRSAA [facility] Comment on above: Result Comment: Results should be used as an adjunct to nosocomial control efforts to identify patients needing enhanced precautions. The test is not intended to identify patients with staphylococcal infections. Results should not be used to guide or monitor treatment for MRSA infections. Performed By: #### M RSANO #### [facility] [address] [place] [address] [employer]: Rui Strauss DO [facility] [address] [place] [address] [employer]: Brody Remy MD Basic Metabolic Panelon 11-0 Anion gap [Moles/Vol] 8 mmol/L Low 9 - 17 mmol/L [place] Bun/Cre Ratio NOT REPORTED [place] Calcium [Mass/Vol] 9.1 mg/dL 8.6 - 10. 4 mg/dL [place] Chloride [Moles/Vol] 102 mmol/L 98 - 10 7 mmol/L [place] CO2 [Moles/Vol] 28 mmol/L 20 - 31 mmol/L [place] Creatinine [Mass/Vol] 0.53 mg/dL 0.5 - 0.9 mg/dL [place] GFR >60 >60 mL/min [place] GFR Non- >60 >60 mL/min [place] GFR/1.73 sq M predicted among non-blacks MDRD (S/P/Bld) [Vol rate/Area] NOT REPORTED [place] GFR/1.73 sq M predicted among non-blacks MDRD (S/P/Bld) [Vol rate/Area] [place] Comment on above: Average GFR for 70 o r more years old: 75 mL/min/1.73sq m Chronic Kidney Disease: <60 mL/min/1.73sq m Kidney failure: <15 mL/min/1.73sq m eGFR calculated using average adult body mass. Additional eGFR calculator available at: http://www.[employer]/multiple_crcl_2012.htm Glucose [Mass/Vol] 116 mg/dL High 70 - 99 mg/dL [place] Interpretation and review of laboratory results Abnormal [place] Potassium [Moles/Vol] 4.3 mmol/L 3.7 - 5.3 mmol/L [place] Sodium [Moles/Vol] 138 mmol/L 135 - 144 mmol/L [place] Urea nitrogen [Mass/Vol] 12 mg/dL 8 - 23 mg/dL [place] Basic Metabolic Profon 05-19 (cont.) Normal [facility] Comment on above: Result Comment: Aver age GFR for 70 or more years old: 75 mL/min/1.73sq m Chronic Kidney Disease: <60 mL/min/1.73sq m Kidney failure: <15 mL/min/1.73sq m eGFR calculated using average adult body mass. Additional eGFR calculator available at: http://www.[employer]/multiple_crcl_2012.htm Performed By: #### C CHARLY, BMP #### [facility] [address] [place] [address] [employer]: Rui Strauss DO Anion gap [Moles/Vol] 8 mmol/L Low 9-17 [facility] Comment on above: Performed By: #### C CHARLY, BMP #### [facility] [place] [address] [employer]: Rui Strauss DO Calcium [Mass/Vol] 9.1 mg/dL Normal 8.6-10.4 [facility] Comment on above: Performed By: #### C CHARLY, BMP #### [facility] [place] [address] [employer]: Fanelly, Rui, DO Chloride [Moles/Vol] 102 mmol/L Normal 98-107 [facility] Comment on above: Performed By: #### C DP, BMP #### [facility] [address] [place] [address] [employer]: Rui Strauss, DO CO2 [Moles/Vol] 28 mmol/L Normal 20-31 [facility] Comment on above: Performed By: #### C DP, BMP #### [facility] [place] [address] [employer]: Rui Strauss, DO Creatinine [Mass/Vol] 0.53 mg/dL Normal 0.50-0.90 [facility] Comment on above: Performed By: #### C DP, BMP #### [facility] [address] [place] [address] [employer]: Rui Strauss, DO GFR, Amer >60 Normal >60 [facility] Comment on above: Performed By: #### C DP, BMP #### [facility] [place] [address] [employer]: Rui Strauss DO GFR,non Amer >60 Normal >60 [facility] Comment on above: Performed By: #### C DP, BMP #### [facility] [address] [place] [address] [employer]: Rui Strauss DO Glucose [Mass/Vol] 116 mg/dL High 70-99 [facility] Comment on above: Performed By: #### C DP, BMP #### [facility] [address] [place] [address] [employer]: Rui Strauss DO Potassium [Moles/Vol] 4.3 mmol/L Normal 3.7-5.3 [facility] Comment on above: Performed By: #### C DP, BMP #### [facility] [address] [place] [facility] [place] [address] [employer]: Rui Strauss DO Sodium [Moles/Vol] 138 mmol/L Normal 135-144 [facility] Comment on above: Performed By: #### C DP, BMP #### [facility] [address] [facility] [place] [address] [employer]: Rui Strauss DO Urea nitrogen [Mass/Vol] 12 mg/dL Normal 8-23 [facility] Comment on above: Performed By: #### C DP, BMP #### [facility] [address] [facility] [place] [address] [employer]: Rui Strauss DO BUN/CRE Ratio NOT REPORTED Normal 9-20 [facility] Comment on above: Performed By: #### C DP, BMP #### [facility] [address] [facility] [place] [address] [employer]: Rui Strauss DO Staging: NOT REPORTED Normal [facility] Comment on above: Performed By: #### C DP, BMP #### [facility] [address] [facility] [place] [address] [employer]: Rui Strasus DO CBC Auto Differentialon 11-0 Basophils (Bld) [#/Vol] 0.00 10*3/uL [place] Basophils/100 WBC (Bld) 1 % 0 - 2 % [place] Differential Type NOT REPORTED [place] Eosinophils (Bld) [#/Vol] 0.10 10*3/uL [place] Eosinophils/100 WBC (Bld) 2 % 0 - 4 % [place] Erythrocyte distribution width (RBC) [Ratio] 15.8 % High 11.5 - 14.9 % [place] Hematocrit (Bld) [Volume fraction] 41.2 % 36 - 46 % [place] Hemoglobin (Bld) [Mass/Vol] 14.0 g/dL 12 - 16 g/dL [place] Interpretation and review of laboratory results Abnormal [place] Lymphocytes (Bld) [#/Vol] 1.90 10*3/uL [place] Lymphocytes/100 WBC (Bld) 26 % 24 - 44 % [place] MCH (RBC) [Entitic mass] 32.8 pg 26 - 34 pg [place] MCHC (RBC) [Mass/Vol] 34.0 g/dL 31 - 37 g/dL [place] MCV (RBC) [Entitic vol] 96.3 fL 80 - 100 fL [place] Monocytes (Bld) [#/Vol] 0.80 10*3/uL [place] Monocytes/100 WBC (Bld) 10 % High 1 - 7 % [place] Platelet mean volume (Bld) [Entitic vol] 6.5 fL 6 - 12 fL [place] Platelets (Bld) [#/Vol] NOT REPORTED [place] Platelets (Bld) [#/Vol] 299 10*3/uL [place] RBC (Bld) [#/Vol] 4.28 10*6/uL 4 - 5.2 m/uL [place] RBC morphology finding Nom (Bld) NOT REPORTED [place] Segmented neutrophils/100 WBC (Bld) 61 % 36 - 66 % [place] Segs Absolute 4.50 [place] WBC (Bld) [#/Vol] 7.3 10*3/uL [place] WBC (Bld) [#/Vol] NOT REPORTED per 100 WBC [place] WBC Morphology NOT REPORTED [place] CBC with Diffon 05-19-2020 Abs. Basophil 0.00 k/uL Normal 0.0-0.2 [facility] Comment on above: Performed By: #### C DP, BMP #### [facility] [address] [place] [address] [employer]: Rui Strauss DO Abs.Neutrophil (Seg) 4.50 k/uL Normal 1.3-9.1 [facility] Comment on above: Performed By: #### C DP, BMP #### [facility] [address] [place] [address] [employer]: Rui Strauss DO Basophils/100 WBC (Bld) 1 % Normal 0-2 [facility] Comment on above: Performed By: #### C DP, BMP #### [facility] [place] [address] [employer]: Rui Strauss DO Eosinophils (Bld) [#/Vol] 0.10 10*3/uL Normal 0.0-0.4 [facility] Comment on above: Performed By: #### C DP, BMP #### [facility] [place] [address] [employer]: Rui Strauss DO Eosinophils/100 WBC (Bld) 2 % Normal 0-4 [facility] Comment on above: Performed By: #### C DP, BMP #### [facility] [place] [address] [employer]: Rui Strauss DO Erythrocyte distribution width (RBC) [Ratio] 15.8 % High 11.5-14.9 [facility] Comment on above: Performed By: #### C DP, BMP #### [facility] [place] [address] [employer]: Rui Strauss DO Hematocrit (Bld) [Volume fraction] 41.2 % Normal 36-46 [facility] Comment on above: Performed By: #### C DP, BMP #### [facility] [place] [address] [employer]: Rui Strauss DO Hemoglobin (Bld) [Mass/Vol] 14.0 g/dL Normal 12.0-16.0 [facility] Comment on above: Performed By: #### C DP, BMP #### [facility] [place] [address] [employer]: Rui Strauss DO Lymphocytes (Bld) [#/Vol] 1.90 10*3/uL Normal 1.0-4.8 [facility] Comment on above: Performed By: #### C DP, BMP #### [facility] [address] [place] [address] [employer] Firer: Rui Strauss DO Lymphocytes/100 WBC (Bld) 26 % Normal 24-44 [facility] Comment on above: Performed By: #### C CHARLY, BMP #### [facility] [address] [place] [address] [employer] Firer: Rui Strauss DO MCH (RBC) [Entitic mass] 32.8 pg Normal 26-34 [facility] Comment on above: Performed By: #### C DP, BMP #### [facility] [address] [place] [address] [employer] Firer: Rui Strauss DO MCHC (RBC) [Mass/Vol] 34.0 g/dL Normal 31-37 [facility] Comment on above: Performed By: #### C DP, BMP #### [facility] [address] [place] [address] [employer] Firer: Rui Strauss DO MCV (RBC) [Entitic vol] 96.3 fL Normal 80-100 M [facility] Comment on above: Performed By: #### C DP, BMP #### [facility] [address] [place] [address] [employer] Firer: Rui Strauss DO Monocytes (Bld) [#/Vol] 0.80 10*3/uL Normal 0.1-1.3 [facility] Comment on above: Performed By: #### C DP, BMP #### [facility] [address] [place] [address] [employer] Firer: Rui Strauss DO Monocytes/100 WBC (Bld) 10 % High 1-7 M [facility] Comment on above: Performed By: #### C DP, BMP #### [facility] [address] [place] [address] [employer] Firer: Rui Strauss DO Neutrophil (Seg) 61 % Normal 36-66 [facility] Comment on above: Performed By: #### C DP, BMP #### [facility] [facility] [place] [address] [employer] Firer: Rui Strauss DO Platelet mean volume (Bld) [Entitic vol] 6.5 fL Normal 6.0-12.0 [facility] Comment on above: Performed By: #### C DP, BMP #### [facility] [place] [address] [employer] Firer: Rui Strauss DO Platelets (Bld) [#/Vol] 299 10*3/uL Normal 150-450 [facility] Comment on above: Performed By: #### C DP, BMP #### [facility] [address] [facility] [place] [address] [employer] Firer: Rui Strauss DO RBC (Bld) [#/Vol] 4.28 10*6/uL Normal 4.0-5.2 [facility] Comment on above: Performed By: #### C DP, BMP #### [facility] [address] [place] [address] [employer] Firer: Rui Strauss DO WBC (Bld) [#/Vol] 7.3 10*3/uL Normal 3.5-11.0 [facility] Comment on above: Performed By: #### C DP, BMP #### [facility] [address] [place] [address] [employer] Firer: Rui Strauss DO Abs.Imm.Granulocyte NOT REPORTED Normal 0.00-0.30 [facility] Comment on above: Performed By: #### C DP, BMP #### [facility] [address] [place] [address] [employer] Firer: Rui Strauss DO Auto Diff Performed NOT REPORTED Normal [facility] Comment on above: Performed By: #### C DP, BMP #### [facility] [address] [place] [address] [employer] Firer: Rui Strauss DO Immature Granulocyte NOT REPORTED Normal 0 [facility] Comment on above: Performed By: #### C DP, BMP #### [facility] [address] [place] [address] [employer] Firer: Rui Strauss DO NRBC Automated NOT REPORTED Normal [facility] Comment on above: Performed By: #### C DP, BMP #### [facility] [address] [place] [address] [employer] Firer: Rui Strauss DO Platelet Estimate NOT REPORTED Normal [facility] Comment on above: Performed By: #### C DP, BMP #### [facility] [address] [place] [address] [employer] Firer: Rui Strauss DO RBC morphology finding Nom (Bld) NOT REPORTED Normal [facility] Comment on above: Performed By: #### C DP, BMP #### [facility] [address] [place] [address] [place] [address] [employer] Firer: Rui Strauss DO WBC Morphology NOT REPORTED Normal [facility] Comment on above: Performed By: #### C DP, BMP #### [facility] [address] [place] [address] [employer] Firer: Rui Strauss DO MRSA, DNA, Nasalon 0 Specimen Description .NASAL SWAB Normal [facility] Comment on above: Performed By: #### M RSANO #### [facility] [address] [place] [address] [employer] Firer: Rui Strauss DO [address] [address] [employer] Firer: Brody Remy MD Microscopic Urinalysison Amorphous, UA NOT REPORTED None [place] Bacteria, UA FEW Abnormal None [facility], [place] Casts UA NOT REPORTED /LPF [place] Crystals, UA NOT REPORTED None /HPF [place] Epithelial Cells UA 2 TO 5 /HPF [place] Interpretation and review of laboratory results Abnormal [place] Mucus, UA NOT REPORTED None [place] Other Observations UA NOT REPORTED NOT REQ. M [facility], [place] RBC (U) [#/Vol] 0 TO 2 /HPF [place] Renal Epithelial, UA NOT REPORTED 0 /HPF Me [facility] [place] [facility], [place] Trichomonas, UA NOT REPORTED None [place] WBC, UA 2 TO 5 /HPF [place] Yeast, UA NOT REPORTED None [place] - [facility], [place] Otheron 05-19-2020 Immature granulocytes (Bld) [#/Vol] NOT REPORTED [place] UA w/Reflex Cultureon 2019 Acetoacetic Acid,Ur Negative Normal NEG [facility] Comment on above: Performed By: #### U AX, UMICAO #### [facility] [address] [place] [address] [employer] Firer: Rui Strauss DO Bilirubin, SemiQt,Ur Negative Normal NEG [facility] Comment on above: Performed By: #### U AX UMYAMILKAO #### [facility] [address] [place] [address] [employer] Firer: Rui Strauss DO Color (U) YELLOW Normal YEL [facility] Comment on above: Performed By: #### U AXMICKIO #### [facility] [address] [place] [address] [employer] Firer: Rui Strauss DO Glucose Ql (U) Negative Normal NEG [facility] Comment on above: Performed By: #### MICKI ACO #### [facility] [address] [place] [address] [employer] Firer: Rui Strauss DO Hemoglobin, Ur Negative Normal NEG [facility] Comment on above: Performed By: #### U AXMICKIO #### [facility] [address] [place] [address] [employer] Firer: Rui Strauss DO Leukocyte esterase Test strip Ql (U) TRACE Abnormal NEG [facility] Comment on above: Performed By: #### U AX UMICAO #### [facility] [address] [place] [address] [employer] Firer: Rui Strauss DO Nitrite,Ur Negative Normal NEG [facility] Comment on above: Performed By: #### U AX UMICAO #### [facility] [address] [place] [address] [employer] Firer: Rui Strauss DO PH,Ur 6.5 Normal 5.0-8.0 [facility] Comment on above: Performed By: #### U AXKIRSTEN #### [facility] [address] [place] [address] [employer] Firer: Rui Strauss DO Protein Ql (U) Negative Normal NEG [facility] Comment on above: Performed By: #### KIRSTEN AC #### [facility] [place] [address] [employer] Firer: Rui Strauss DO Spec. [place],Ur 1.011 Normal 1.000-1.030 [facility] Comment on above: Performed By: #### KIRSTEN AC #### [facility] [address] [place] [address] [employer] Firer: Rui Strauss DO Turbidity CLEAR Normal CLEAR [facility] Comment on above: Performed By: #### KIRSTEN AC #### [facility] [address] [place] [address] [employer] Firer: Rui Strauss DO Urobilinogen,Ur Normal Normal NORM [facility] Comment on above: Performed By: #### KIRSTEN AC #### [facility] [address] [place] [address] [employer] Firer: Rui Strauss DO Comment NOT REPORTED Normal [facility] Comment on above: Performed By: #### U KIRSTEN PAIGE #### [facility] [address] [place] [address] [employer] Firer: Rui Strauss DO Urinalysis Reflex to Culture on 05-19-2020 Bilirubin Urine Negative NEGATIVE [facility] [place], [place] Color, UA YELLOW YELLOW [facility] [place], [place] Glucose, Ur Negative NEGATIVE [facility] [place] Interpretation and review of laboratory results Abnormal [facility] Ketones Ql (U) Negative NEGATIVE [facility] [place] Leukocyte esterase Test strip Ql (U) TRACE Abnormal NEGATIVE [facility], [place] Nitrite, Urine Negative NEGATIVE [facility], [place] pH, UA 6.5 [place], [place] Protein (U) [Mass/Vol] Negative NEGATIVE Me [facility], [place] Specific [place], UA 1.011 [place], [place] Turbidity UA CLEAR CLEAR [place] Urinalysis Comments NOT REPORTED [place] Urine Hgb Negative NEGATIVE [place] Urobilinogen, Urine Normal Normal [place] Urinalysis,Microon 0 ----- Normal [facility] Comment on above: Performed By: #### KIRSTEN AC #### [facility] [address] [place] [address] [employer] Firer: Rui Strauss DO Bacteria FEW Abnormal NONE [facility] Comment on above: Performed By: #### KIRSTEN AC #### [facility] [address] [place] [address] [employer] Firer: Rui Strauss DO Epithelial cells LM Ql (Urine sed) 2 TO 5 Normal [facility] Comment on above: Performed By: #### KIRSTEN AC #### [facility] [address] [place] [address] [employer] Firer: Rui Strauss DO Urine RBC's 0 TO 2 Normal [facility] Comment on above: Performed By: #### KIRSTEN AC #### [facility] [address] [place] [address]39[address] [employer] Firer: Rui Strauss DO Urine WBC's 2 TO 5 Normal [facility] Comment on above: Performed By: #### KIRSTEN AC #### [facility] [address] [place] [address] [employer] Firer: Rui Strauss DO Amorphous sediment LM Ql (Urine sed) NOT REPORTED Normal NONE [facility] Comment on above: Performed By: #### U AX, UMICAO #### [facility] [address] [facility] [place] [address] [employer] Firer: Rui Strauss DO Casts NOT REPORTED Normal [facility] Comment on above: Performed By: #### U AX, UMICAO #### [facility] [address] [facility] [place] [address] [employer] Firer: Rui Strauss DO Crystals LM Nom (Urine sed) NOT REPORTED Normal NONE [facility] Comment on above: Performed By: #### U AX, UMICAO #### [facility] [address] [facility] [place] [address] [employer] Firer: Rui Strauss DO Epithelial, Renal NOT REPORTED Normal 0 [facility] Comment on above: Performed By: #### U AX, UMICAO #### [facility] [address] [facility] [place] [address] [employer] Firer: Rui Strauss DO Mucus Strands NOT REPORTED Normal NONE [facility] Comment on above: Performed By: #### U AX, UMICAO #### [facility] [address] [facility] [place] [address] [employer] Firer: Rui Strauss DO Other Observations NOT REPORTED Normal NREQ [facility] Comment on above: Performed By: #### U AX, UMICAO #### [facility] [address] [facility] [place] [address] [employer] Firer: Rui Strauss DO Trichomonas NOT REPORTED Normal NONE [facility] Comment on above: Performed By: #### U AX, UMICAO #### [facility] [address] [facility] [place] [address] [employer] Firer: Rui Strauss DO Yeast NOT REPORTED Normal NONE [facility] Comment on above: Performed By: #### KIRSTEN AC #### [facility] [address] [place] [address] [employer] Firer: Rui Strauss DO Vital Signs Date Time Vital Sign Value Performing Clinician Gabriele pena 02-15-2021 11:50-0400 Body height 152.4 cm [facility] [employer] Phone: 02-15-2021 11:50-0400 Body mass index (BMI) [Ratio] 31.25 kg/m2 [facility] [employer] Phone: 02-15-2021 11:50-0400 Body temperature 98.01 [degF] [facility] [employer] Phone: 02-15-2021 11:50-0400 Body weight 72.58 kg [facility] 1 [employer] Phone: 02-15-2021 11:50-0400 Diastolic blood pressure 61 mm[Hg] [facility] [employer] Phone: 02-15-2021 11:50-0400 Heart rate 66 /min [facility] [employer] Phone: 02-15-2021 11:50-0400 Respiratory rate 18 /min [facility] 1 [employer] Phone: 02-15-2021 11:50-0400 SaO2% (BldA) [Mass fraction] 100 % [facility] [employer] Phone: 02-15-2021 11:50-0400 Systolic blood pressure 132 mm[Hg] [facility] [employer] Phone: 05-19-2020 13:09-0500 BMI (Body Mass Index) 33.59 kg/m2 [facility] 1 [facility], [place] 05-19-2020 13:09-0500 Body Temperature 98.8 [degF] [facility] 1 [facility] [place] 05-19-2020 13:09-0500 Body weight 78.02 kg [facility] 1 [facility] , [place] 05-19-2020 13:09-0500 BP Diastolic 69 mm[Hg] [facility] 1 [facility] , [place] 05-19-2020 13:090500 BP Systolic 139 mm[Hg] [facility] 1 [facility] , [place] 05-19-2020 13:090500 Height 152.4 cm [facility] 1 [facility] , [place] 05-19-2020 13:09-0500 Pulse (Heart Rate) 70 /min [facility] 1 [facility], [place] 05-19-2020 13:090500 Pulse Oximetry 95 % [facility] 1 [facility] , [place] 05-19-2020 13:09-0500 Respiratory Rate 20 /min [facility] 1 [facility] [place] Encounters Encounter Date Encounter Type Care Provider [...] Start: 02-15-2021 End: 02-20-2021 ambulatory CHANEL FUENTES [facility] Start: 02-15-2021 End: 02-19-2021 Subsequent hospital visit by physician Navjot Tello Rm 1 [facility] Pre-Admit Testing Start: 05-19-2020 End: 05-24-2020 ambulatory CHANEL FUENTES [facility] Start: 05-19-2020 End: 05-23-2020 Subsequent hospital visit [...] methi cillin resist amp probe tq Chanel Fuenets Work Phone: Start: 05-19-2020 Basic metabolic pane l calcium total Evy Lara Work Phone: Start: 05-19-2020 Blood count complete auto&auto difrntl wbc Evy Lara Work Phone: Plan of Treatment Date Care Activity Detail Author Start: 02-15-2022 [facility] Work Phone: Start: 02-15-2022 Potassium monitoring Potassium monit [facility] [employer] Work Phone: Start: 05-19-2021 Creatinine measurement Creatinine mo [place] Start: 05-19-2021 Potassium monitoring Potassium monit [place] Start: 03-16-2021 Influenza vaccination Flu vaccine (# 1) [employer] Phone: Start: 03-16-2021 End: 03-16-2021 Patient encounter procedure 03/16/2021 Office Visit Orthopedic Surgery Chanel Fuentes MD [address] [address] [phone] [facility] Start: 03-01-2021 End: 03-01-2021 Admission to same day surgery center 03/01/2021 Surgery IP Unit Chanel Fuentes MD [address] [address] [phone] KNEE TOTAL ARTHROPLASTY [facility] Comment on above: KNEE TOTAL ARTHROPLA STY Start: 03-01-2021 Subsequent hospital visit by physician 03/01/2021 Hospital Encounter IP Unit Chanel Fuentes MD [address] [id number] [facility] Start: 06-16-2020 End: 06-16-2020 Office Visit 06/16/2020 Office Visit Orthopedic Surgery Chanel Fuentes MD [address] [address] [phone] [facility] Start: 06-01-2020 End: 06-01-2020 Hospital Encounter [facility] Comment on above: KNEE TOTAL ARTHROPLA [facility] Start: 05-28-2020 End: 05-28-2020 Appointment 05/28/2020 Appointment Pre-Admission Testing [facility] PRE-ADMIT TESTING Start: 03-29-2020 Annual Wellness Visi t (AWV) Annual Wellness Visit (AWV) [place] Start: 03-16-2020 Influenza vaccination Flu vaccine (# 1) [place] Start: 11-18-1998 Screening for osteoporosis DEXA (modify frequency per FRAX score) [place] Start: 11-18-1993 Shingles Vaccine (1 of 2) Shingles Vaccine (1 of 2) [place] Start: 11-18-1962 DTaP/Tdap/Td vaccine (1 - Tdap) DTaP/Tdap/Td vaccine (1 - Tdap) [place] Start: 11-18-1953 Lipid panel Lipid screen [place], [place] Start: 1945 Hepatitis C screening Hepatitis C sc reen [facility] Work Phone: Immunizations Immunization Date Immunization Notes Care Provider Fa anjum 05-13-2004 influenza virus vacc ine, unspecified formulation [facility] 1 [place] Payers Date Payer Category Payer Medicare [id number] 1959 Private Health Insurance CLI [id number] 1959 Self-pay [id number] 1943 Unknown [id number] 2.16.8 [id number] 1943 Unknown [id number] 2.16.8 [id number] 1943 Unknown [id number] 2.16.84 [id number] 1943 Unknown [id number] 2.16.84 [id number] 1943 Unknown [id number] 2.16.84 [id number] 1943 Unknown [id number] 2.16.84 [id number] 1943 Unknown [id number] 2.16.84 [id number] 1943 Unknown [id number] 2.16.84 [id number] 1943 Unknown [id number] 2.16.84 [id number] 1943 Unknown [id number] 2.16.84 [id number] 1943 Unknown [id number] 2.16.84 [id number] 1943 Unknown [id number] 2.16.84 [id number] Social History Date Type Detail Facility Start: 05-19-2020 End: 02-15-2021 Tobacco smoking status NHIS Never smoker [place] Start: 05-19-2020 End: 02-15-2021 Tobacco use and exposure Never used [place], [place] Start: 05-19-2020 End: 02-15-2021 Alcohol intake Lifetime non-drinker (finding) [place] Start: 05-19-2020 History SDOH Alcohol Frequency 1 [place], [place] Start: 1945 Sex Assigned At Not on file [place] Exposure to SARS-CoV -2 (event) Not sure [place] Hospital Discharge instructions 02-15-2021 Instructions Note [...] powder, deodorant, jewelry, piercings, perfume, makeup, nail mongolian, hair accessories, or hair spray on the [...] hospital. The Day of Surgery: Arrive at [facility] Surgery Entrance at the time directed by your surgeon and check in at the desk. If you have a living will or healthcare power of varnish filterer, please bring a copy. You will be taken to the pre-op holding area where you will be prepared for surgery. A physical assessment will be performed by a nurse practitioner or house servant. Your IV will be started and you [...] in recovery room. documented in this encounter [employer] Phone: History of Present illness Narrative 02-15-2021 Renetta Vieyra RN - 02/15/2021 11:30 AM EDT Note Date & Type Note Facility 02-15-2021 History of Present illness Narrative Dr. Gan, anesthesia, was contacted and informed of the patient's planned surgery, history, and unconfirmed abnormal EKG results from EKG done today in [facility]. Also reviewed stress test and echo from 05/2020 from [facility]. Medical clearance required. Surgery scheduling will notify Dr. Fuentes's office who will be responsible for making sure the clearance is obtained and is in the chart for surgery. documented in this encounter [employer] Phone: Discharge Instructions * Instructions* Amelia Renee [...] powder, deodorant, jewelry, piercings, perfume, makeup, nail mongolian, hair accessories, or hair spray on the day of surgery. Wear loose comfortable clothing. 4. Leave your valuables at home. Bring a storage case for any glasses/contacts. The Day of Surgery: Arrive at [facility] Surgery Entrance at the time directed by your surgeon and check in at the desk. If you have a living will or healthcare power of varnish filterer, please bring a copy. You will be taken to the pre-op holding area where you will be prepared for surgery. A physical assessment will be performed by a nurse practitioner or house servant. Your IV will be started and you [...] EKG results from EKG done today in [facility]. Medical clearance required. Surgery scheduling will notify Dr. Fuentes's office who will be responsible for making sure the clearance is obtained and is in the chart for surgery. 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 [employer] [facility]. provides no warranty or guarantee of the accuracy or completeness of information in this document.
[2024-03-25] MEDS: LACTATED RINGER'S SOLUTION 1,000 ML 100 ML IV (18:24)
[2024-03-25] MEDS: ALPRAZOLAM 0.25 MG TABLET PO (18:24)
[2024-03-26] VITALS (8 sets, daily range): BP systolic 122–147; BP diastolic 64–78; PULSE 77–85; TEMP 36.8–37; O2SAT 93–100
[2024-03-26] MEDS: LACTATED RINGER'S SOLUTION 1,000 ML 100 ML IV ×3 (04:30→23:46)
[2024-03-26] MEDS: LEVOTHYROXINE SODIUM 112 MCG TABLET PO (05:36)
--- NOTE | 2024-03-26 05:38 | PC.NURSE ---
calcium held at this time as it cannot be given within 4 hours of synthroid
--- NOTE | 2024-03-26 08:08 | P.HP_ITS ---
HPI H&P: HPI History of Present Illness Chief complaint: FALL, Intractable Pain Opioid HPI Opioid Management Most Recent Pain and Opioid Data: Last Pain Scale 6 06/10/23 09:28 Last Pain Intensity 8 06/09/23 09:20 Last Pain Assessment 03/26/24 07:00 Last ORT Total Score 0 03/25/24 16:45 Last ORT Risk Category Low Risk 03/25/24 16:45 PFSH PFSH Medical History (Updated 03/25/24 @ 14:09 by Shaikh Desmond MD) Chronic knee pain ?M25.569 - Pain in unspecified knee (ICD-10) ?G89.29 - Other chronic pain (ICD-10) Chronic lower back pain ?M54.50 - Low back pain, unspecified (ICD-10) ?G89.29 - Other chronic pain (ICD-10) Wheelchair dependence ?Z99.3 - Dependence on wheelchair (ICD-10) Hypothyroid ?E03.9 - Hypothyroidism, unspecified (ICD-10) HLD (hyperlipidemia) ?E78.5 - Hyperlipidemia, unspecified (ICD-10) Compression fx, lumbar spine ?S32.000A - Wedge compression fracture of unspecified lumbar vertebra, initial encounter for closed fracture (ICD-10) Acute kidney injury ?N17.9 - Acute kidney failure, unspecified (ICD-10) Acute UTI ?N39.0 - Urinary tract infection, site not specified (ICD-10) Nausea vomiting and diarrhea ?R11.2 - Nausea with vomiting, unspecified (ICD-10) ?R19.7 - Diarrhea, unspecified (ICD-10) Leukocytosis ?D72.829 - Elevated white blood cell count, unspecified (ICD-10) Fall ?W19.XXXA - Unspecified fall, initial encounter (ICD-10) Low back pain ?M54.50 - Low back pain, unspecified (ICD-10) B12 deficiency ?E53.8 - Deficiency of other specified B group vitamins (ICD-10) Ventral hernia ?K43.9 - Ventral hernia without obstruction or gangrene (ICD-10) Compression fracture of L5 vertebra ?S32.050A - Wedge compression fracture of fifth lumbar vertebra, initial encounter for closed fracture (ICD-10) Anxiety ?F41.9 - Anxiety disorder, unspecified (ICD-10) Hypertension ?I10 - Essential (primary) hypertension (ICD-10) Graves disease ?E05.00 - Thyrotoxicosis with diffuse goiter without thyrotoxic crisis or storm (ICD-10) Osteopenia ?M85.80 - Other specified disorders of bone density and structure, unspecified site (ICD-10) Small bowel obstruction ?K56.609 - Unspecified intestinal obstruction, unspecified as to partial versus complete obstruction (ICD-10) Diverticula of colon ?K57.30 - Diverticulosis of large intestine without perforation or abscess without bleeding (ICD-10) Arthritis ?M19.90 - Unspecified osteoarthritis, unspecified site (ICD-10) Cervical radiculopathy ?M54.12 - Radiculopathy, cervical region (ICD-10) Type 2 diabetes mellitus ?E11.9 - Type 2 diabetes mellitus without complications (ICD-10) Bronchitis ?J40 - Bronchitis, not specified as acute or chronic (ICD-10) Upper respiratory infection ?J06.9 - Acute upper respiratory infection, unspecified (ICD-10) Surgical History (Updated 05/29/23 @ 11:44 by Mae Escoto RN) History of colon resection ?Z90.49 - Acquired absence of other specified parts of digestive tract (ICD- 10) History of cholecystectomy ?Z90.49 - Acquired absence of other specified parts of digestive tract (ICD- 10) Family History (Updated 03/25/24 @ 16:48 by Kierra Doss) Father Family history of myocardial infarction Sister Family history of stroke Other Family history of CHF (congestive heart failure) Family history of cancer Family history of diabetes mellitus Family history of hypertension Social History (Updated 03/25/24 @ 16:49 by Kierra Doss) Within the past year, how often did you have a drink containing alcohol: never Within the past year, how many standard drinks containing alcohol did you have on a typical day: 1 or 2 Within the past year, how often did you have six or more drinks on one occasion: never Total score: 0 Score interpretation: A score less than 3 is consistent with normal alcohol consumption. Smoking status: Never smoker Non-prescribed substance use: denies use Highest level of school completed/degree received: high school graduate In a typical week, how many times do you talk on the telephone with family, friends, or neighbors: 3 or more times per week How often do you get together with friends or relatives: 3 or more times per week How often do you attend hoahaoism or jainism services: 4 or more times per year Do you belong to any clubs or organizations such as hoahaoism groups unions, [employer] or athletic groups, or school groups: yes Feel stressed/tense/nervous/anxious/difficulty sleeping: rather much Gender Identity: female Meds Home Medications and Allergies Home Medications ?Medication ?Instructions ?Recorded ?Confirmed ?Type levothyroxine 112 mcg tablet 112 mcg PO .before breakfast 05/29/23 03/25/24 History lisinopril 10 mg tablet 10 mg PO DAILY 05/29/23 03/25/24 History simvastatin 40 mg tablet 40 mg PO DAILY 05/29/23 03/25/24 History tramadol 50 mg tablet 50 mg PO Q8H PRN pain 03/25/24 03/25/24 History Allergies Allergy/AdvReac Type Severity Reaction Status Date / Time Iodinated Contrast Media Allergy Unknown Verified 05/29/23 11:34 diclofenac Allergy Verified 05/29/23 11:34 [From Arthrotec 50] misoprostol Allergy Verified 05/29/23 11:34 [From Arthrotec 50] levofloxacin AdvReac Intermediate Hives Verified 05/29/23 11:34 Penicillins AdvReac Intermediate Verified 05/29/23 11:34 Exam Constitutional Vital Signs, click to edit/add: Last Vital Signs Temp 98.3 F 03/26/24 08:01 Pulse 77 03/26/24 08:01 Resp 18 03/26/24 08:01 BP 147/66 H 03/26/24 08:01 Pulse Ox 95 03/26/24 08:01 O2 Del Method Room Air 03/26/24 08:01 Results Labs Labs: Short CBC 03/25/24 Range/Units 14:11 WBC 8.5 (4.0-11.0) 10^3/uL Hgb 9.7 L (12.0-16.0) g/dL Hct 30.3 L (36.0-48.0) % Plt Count 162 (150-450) 10^3/uL BMP 03/25/24 14:11 Sodium 134 L Potassium 4.5 Chloride 101 Carbon Dioxide 27.4 BUN 26.0 H Creatinine 1.29 H Glucose 188 H Calcium 8.4 L Liver Function 03/25/24 Range/Units 14:11 Total Bilirubin 0.6 (0.2-1.0) mg/dL AST 32 (15-37) U/L ALT 28 (14-59) U/L Alkaline Phosphatase 110 (46-116) U/L Albumin 3.0 L (3.4-5.0) g/dL Urine 03/25/24 Range/Units 13:23 Urine Color Yellow (YELLOW) Urine Clarity Clear (CLEAR) Urine pH 6.0 (5.0-9.0) Ur Specific [place] 1.025 (1.005-1.025) Urine Protein Trace (NEG/TRACE) mg/dL Urine Glucose (UA) Negative (NEGATIVE) mg/dL Assessment and Plan Assessment and Plan (1) Fall: Qualifiers: Encounter type: subsequent encounter Qualified Code(s): W19.XXXD - Unspecified fall, subsequent encounter (2) Chronic lower back pain: Qualifiers: Back pain laterality: bilateral Sciatica presence: without sciatica Qualified Code(s): M54.50 - Low back pain, unspecified; G89.29 - Other chronic pain (3) Chronic knee pain: Qualifiers: Laterality: bilateral Qualified Code(s): M25.561 - Pain in right knee; M25.562 - Pain in left knee; G89.29 - Other chronic pain (4) Ambulatory dysfunction: (5) Wheelchair dependence: (6) Hypertension: Qualifiers: Hypertension type: primary hypertension Qualified Code(s): I10 - Essential (primary) hypertension (7) HLD (hyperlipidemia): Qualifiers: Hyperlipidemia type: unspecified Qualified Code(s): E78.5 - Hyperlipidemia, unspecified (8) Hypothyroid: Qualifiers: Hypothyroidism type: unspecified Qualified Code(s): E03.9 - Hypothyroidism, unspecified
--- NOTE | 2024-03-26 08:12 | P.PN_ITS ---
Progress Note: Subjective Subjective Interval history: Patient well-known to me from office care for numerous years, had a fall with intractable pain. Requiring IM narcotic pain medication, she has as needed IV pain medications written for as well. X-ray consistent with subacute T11 compression fracture and severe osteoarthritis of her knees. Patient still complaining of consistent and considerable pain this morning. Very tearful. Exam Constitutional Vital Signs, click to edit/add: Last Vital Signs Temp 98.3 F 03/26/24 08:01 Pulse 77 03/26/24 08:01 Resp 18 03/26/24 08:01 BP 147/66 H 03/26/24 08:01 Pulse Ox 95 03/26/24 08:01 O2 Del Method Room Air 03/26/24 08:01 Documenting provider has reviewed patient's vital signs: yes Common normals: apparent distress (Moderately severe painful distress) Exam limitations: no altered mental status Chest Common normals: inspection of chest normal Respiratory Common normals: normal respiratory effort and no retractions Cardio Common normals: regular rate and regular rhythm GI Common normals: Normal to inspection, nondistended, normoactive bowel sounds present and soft to palpation; tender Palpation: tender (Diffusely tender, no rebound) Extremity Common normals: abnormal to inspection (1+ pitting edema bilaterally) and limited ROM Progress Note: Objective Labs Labs: Short CBC 03/25/24 Range/Units 14:11 WBC 8.5 (4.0-11.0) 10^3/uL Hgb 9.7 L (12.0-16.0) g/dL Hct 30.3 L (36.0-48.0) % Plt Count 162 (150-450) 10^3/uL BMP 03/25/24 14:11 Sodium 134 L Potassium 4.5 Chloride 101 Carbon Dioxide 27.4 BUN 26.0 H Creatinine 1.29 H Glucose 188 H Calcium 8.4 L Liver Function 03/25/24 Range/Units 14:11 Total Bilirubin 0.6 (0.2-1.0) mg/dL AST 32 (15-37) U/L ALT 28 (14-59) U/L Alkaline Phosphatase 110 (46-116) U/L Albumin 3.0 L (3.4-5.0) g/dL Urine 03/25/24 Range/Units 13:23 Urine Color Yellow (YELLOW) Urine Clarity Clear (CLEAR) Urine pH 6.0 (5.0-9.0) Ur Specific [place] 1.025 (1.005-1.025) Urine Protein Trace (NEG/TRACE) mg/dL Urine Glucose (UA) Negative (NEGATIVE) mg/dL Progress Note: A&P Assessment and Plan (1) Fall: Qualifiers: Encounter type: subsequent encounter Qualified Code(s): W19.XXXD - Unspecified fall, subsequent encounter (2) Chronic lower back pain: Qualifiers: Back pain laterality: bilateral Sciatica presence: without sciatica Qualified Code(s): M54.50 - Low back pain, unspecified; G89.29 - Other chronic pain (3) Chronic knee pain: Qualifiers: Laterality: bilateral Qualified Code(s): M25.561 - Pain in right knee; M25.562 - Pain in left knee; G89.29 - Other chronic pain (4) Ambulatory dysfunction: (5) Wheelchair dependence: (6) Hypertension: Qualifiers: Hypertension type: primary hypertension Qualified Code(s): I10 - Essential (primary) hypertension (7) HLD (hyperlipidemia): Qualifiers: Hyperlipidemia type: unspecified Qualified Code(s): E78.5 - Hyperlipidemia, unspecified (8) Hypothyroid: Qualifiers: Hypothyroidism type: unspecified Qualified Code(s): E03.9 - Hypothyroidism, unspecified Plan Admission findings: Uncontrolled hypertension status post fall with significant knee and low back pain, subacute T11 compression fracture. Acute kidney injury with creatinine 163.3% above baseline Severe arthritis bilateral knees and lumbar compression fracture requiring pain control-has IV pain medications written for as needed as well as oral for lower level pain. Physical therapy to work with patient today. Acute kidney injury-repeat labs this morning are pending. Baseline creatinine 0.79 on recent blood work done as an outpatient, 1.29 on admission which is 163.3% above baseline Hyponatremia likely secondary to the above-slow gentle IV hydration Peripheral edema -check BNP, likely edema secondary to moderate protein calorie malnutrition as well as some venous insufficiency. Hypertension: Improved this morning, continue with home medications HLD (hyperlipidemia): Continue with home medications Hypothyroid: Recent labs and no need to repeat-continue with home medications Moderate protein calorie malnutrition-diet management Admission status: Physical therapy to work with patient today, patient may need rehab, depending on results of laboratory testing, IV hydration i.e. medically necessary treatment, will span 2 midnights. Inpatient status may be necessary. With the mild dehydration unable to give significantly large fluid boluses secondary to her peripheral edema already as a baseline
--- NOTE | 2024-03-26 08:20 | XR_ITS ---
The [address] [address] Patient Name: JERRY FINNEY MRN: [id number] date: 1945 Sex: F Assigned Patient Location: [place] Current Patient Location: [place] Accession/Order Number: [id number] Exam Date: 03/26/2024 09:15 Report Date: 03/26/2024 09:57 At the request of: MARISEL LEGER Procedure: XR acute abdomen series EXAMINATION: XR acute abdomen series HISTORY: abd pain COMPARISON: No relevant comparison available. FINDINGS: LUNGS: Mild haziness within left midlung and lateral left lung base. MEDIASTINUM: No abnormal widening. BOWEL GAS PATTERN: Non-obstructed. No abnormal dilation. Moderate stool burden. FREE AIR: None. CALCIFICATIONS: None significant. BONES: No fracture or visible bone lesion. OTHER: Negative. XR/XR acute abdomen series IMPRESSION: 1. Mild left pulmonary infiltrates versus atelectasis. 2. Moderate large stool burden. No bowel obstruction. Electronically authenticated by: SURYA MONTEMAYOR Date: 03/26/2024 09:57
[2024-03-26 08:24] LABS: Basophils Percent Auto 0.3 % (0.2-2.0); Eosinophils Percent Auto 0.2 % (0.9-7.0); Hematocrit 26.9 % (36.0-48.0); Hemoglobin 8.7 g/dL (12.0-16.0); Immature Granulocytes Abs Auto 0.03 10^3/uL (0.00-0.03); Immature Granulocytes Pct Auto 0.3 % (0.0-0.5); Lymphocytes Absolute Auto 1.2 10^3/uL (1.2-3.8); Mean Corpuscular HGB Conc 32.3 g/dL (29.9-35.2); Mean Corpuscular Hemoglobin 28.8 pg (26.7-34.0); Mean Corpuscular Volume 89.1 fL (81.0-99.0); Mean Platelet Volume 8.9 fL (9.5-13.5); Monocytes Absolute Auto 0.9 10^3/uL (0.3-0.8); Neutrophils Absolute Auto 6.6 10^3/uL (1.4-6.5); Neutrophils Percent Auto 75.2 % (43.0-75.0); Platelet Count 111 10^3/uL (150-450); Red Blood Count 3.02 10^6/uL (4.20-5.40); Red Cell Distribution Width 12.2 % (11.0-15.0); White Blood Count 8.7 10^3/uL (4.0-11.0)
[2024-03-26] MEDS: TRAMADOL HCL 50 MG TABLET PO ×2 (08:27→17:48)
[2024-03-26] MEDS: ATORVASTATIN CALCIUM 20 MG TABLET PO (08:27)
[2024-03-26] MEDS: LISINOPRIL 10 MG TABLET PO (08:28)
[2024-03-26] MEDS: CETIRIZINE HCL 10 MG TABLET PO (08:29)
[2024-03-26 08:34] LABS: Anion Gap 8.2; BUN Creatinine Ratio 25.8; Calcium 8.4 mg/dL (8.5-10.1); Chloride 103 mmol/L (98-107); Estimated GFR (African America >60 (>=60); Estimated GFR (Non-African Ame 58 (>=60); Glucose 103 mg/dL (74-106); Potassium 4.2 mmol/L (3.5-5.1); Sodium 135 mmol/L (136-145)
[2024-03-26] MEDS: CALCITONIN,SALMON,SYNTHETIC 30 SPRAY/3.7 ML BOTTLE NS (08:46)
[2024-03-26] MEDS: ALPRAZOLAM 0.25 MG TABLET PO (11:46)
--- NOTE | 2024-03-26 12:49 | SWNOTE1 ---
JONAH met with pt and daughter in room. Pt was falling asleep during conversation. Pt's daughter answered most questions. Pt lives with her son and he does help as needed. Pt's daughter also comes over on her day off as well. Pt uses a wheelchair at home to pivot transfer and uses the wheelchair as a walker at times. Pt is able to transfer from wheelchair to bedside commode. Pt ambulates very little at baseline, mainly pivot transfer from wheelchair to bedside commode, to recliner. Pt's daughter voiced pt is anxious since she had a fall. Pt and daughter are agreeable that pt does need to go skilled for a short time. SW explained how Medicare works and needing a 3 day qualifying inpt stay. Pt voiced understanding. Daughter voiced that pt has been to [facility] in past. She liked it there, but at times therapy pushed her to do too much. Again pt's daughter expressed that she just wants pt to be able to pivot transfer, minimal walking. JONAH to let therapy know. JONAH to send referral to [facility] and see if they have an opening. Referral sent to [facility]. Referral included face sheet, ED note, H&P, provider notes, case management report, wound consult, nursing notes, diagnostic imaging, med list, and PT note. JONAH to send OT once completed.
--- NOTE | 2024-03-26 12:53 | SWNOTE1 ---
Important Message from Medicare reviewed and discussed with patient's daughter. P's daughter. verbalized understanding and signed the form. Original placed in pt's room and copy placed in patient?s chart.
[2024-03-26] MEDS: CALCIUM CARBONATE 600 MG TABLET PO ×2 (14:00→21:26)
[2024-03-26] MEDS: ACETAMINOPHEN 325 MG TABLET 650 MG PO (17:48)
[2024-03-26] MEDS: ENOXAPARIN SODIUM 40 MG/0.4 ML SYRINGE SUBQ (21:26)
[2024-03-27] VITALS (8 sets, daily range): BP systolic 137–166; BP diastolic 73–80; PULSE 76–100; TEMP 36.5–36.9; O2SAT 92–97
[2024-03-27] MEDS: ACETAMINOPHEN 325 MG TABLET 650 MG PO ×2 (03:34→12:41)
[2024-03-27] MEDS: TRAMADOL HCL 50 MG TABLET PO ×2 (03:35→12:41)
[2024-03-27] MEDS: CALCIUM CARBONATE 600 MG TABLET PO ×3 (05:08→21:05)
[2024-03-27] MEDS: LEVOTHYROXINE SODIUM 112 MCG TABLET PO (05:09)
--- NOTE | 2024-03-27 05:58 | P.PN_ITS ---
Progress Note: Subjective Subjective Interval history: Patient does look better today. Seems to be less painful distress. Exam Constitutional Vital Signs, click to edit/add: Last Vital Signs Temp 97.9 F 03/27/24 03:27 Pulse 76 03/27/24 03:27 Resp 18 03/27/24 03:27 BP 143/80 H 03/27/24 03:27 Pulse Ox 93 L 03/27/24 04:17 O2 Del Method Room Air 03/27/24 04:17 Documenting provider has reviewed patient's vital signs: yes Common normals: apparent distress (Moderately severe painful distress) Exam limitations: no altered mental status Chest Common normals: inspection of chest normal Respiratory Common normals: normal respiratory effort and no retractions Cardio Common normals: regular rate and regular rhythm GI Common normals: Normal to inspection, nondistended, normoactive bowel sounds present and soft to palpation; tender Palpation: tender (Diffusely tender, no rebound) Extremity Common normals: abnormal to inspection (1+ pitting edema bilaterally) and limited ROM Progress Note: Objective Labs Labs: Short CBC 03/26/24 Range/Units 08:09 WBC 8.7 (4.0-11.0) 10^3/uL Hgb 8.7 L (12.0-16.0) g/dL Hct 26.9 L (36.0-48.0) % Plt Count 111 L (150-450) 10^3/uL BMP 03/26/24 08:09 Sodium 135 L Potassium 4.2 Chloride 103 Carbon Dioxide 28.0 BUN 24.0 H Creatinine 0.93 Glucose 103 Calcium 8.4 L Progress Note: A&P Assessment and Plan (1) Fall: Qualifiers: Encounter type: subsequent encounter Qualified Code(s): W19.XXXD - Unspecified fall, subsequent encounter (2) Chronic lower back pain: Qualifiers: Back pain laterality: bilateral Sciatica presence: without sciatica Qualified Code(s): M54.50 - Low back pain, unspecified; G89.29 - Other chronic pain (3) Chronic knee pain: Qualifiers: Laterality: bilateral Qualified Code(s): M25.561 - Pain in right knee; M25.562 - Pain in left knee; G89.29 - Other chronic pain (4) Ambulatory dysfunction: (5) Wheelchair dependence: (6) Hypertension: Qualifiers: Hypertension type: primary hypertension Qualified Code(s): I10 - Essential (primary) hypertension (7) HLD (hyperlipidemia): Qualifiers: Hyperlipidemia type: unspecified Qualified Code(s): E78.5 - Hyperlipidemia, unspecified (8) Hypothyroid: Qualifiers: Hypothyroidism type: unspecified Qualified Code(s): E03.9 - Hypothyroidism, unspecified Plan Admission findings: Uncontrolled hypertension status post fall with significant knee and low back pain, subacute T11 compression fracture. Acute kidney injury with creatinine 163.3% above baseline Severe arthritis bilateral knees and lumbar compression fracture requiring pain control-with physical therapy, highly recommend rehab for improved patient safe ty and risk of falls improvement Acute kidney injury-repeat labs this morning are pending. Better today. Hyponatremia likely secondary to the above-resolved, will saline lock Thrombocytopenia-monitor daily Peripheral edema -check BNP, likely edema secondary to moderate protein calorie malnutrition as well as some venous insufficiency.-BNP pending Hypertension: So far stable with home medications HLD (hyperlipidemia): Continue with home medications Hypothyroid: Recent labs and no need to repeat-continue with home medications Moderate protein calorie malnutrition-diet management Admission status: Physical therapy to work with patient today, patient may need rehab, depending on results of laboratory testing, IV hydration i.e. medically necessary treatment, will span 2 midnights. Patient is inpatient status with medically necessary treatment for the acute kidney injury and dehydration. Medically necessary treatment spanning 2 midnights. Inpatient status
[2024-03-27 06:34] LABS: Anion Gap 10.7; BUN Creatinine Ratio 24.4; Calcium 8.2 mg/dL (8.5-10.1); Carbon Dioxide 26.2 mmol/L (21.0-32.0); Chloride 103 mmol/L (98-107); Estimated GFR (African America >60 (>=60); Estimated GFR (Non-African Ame >60 (>=60); Glucose 80 mg/dL (74-106); Potassium 4.9 mmol/L (3.5-5.1); Sodium 135 mmol/L (136-145)
[2024-03-27 06:53] LABS: Basophils Percent Auto 0.4 % (0.2-2.0); Eosinophils Absolute Auto 0.2 10^3/uL (0.0-0.7); Eosinophils Percent Auto 2.4 % (0.9-7.0); Hematocrit 25.5 % (36.0-48.0); Hemoglobin 8.4 g/dL (12.0-16.0); Immature Granulocytes Abs Auto 0.02 10^3/uL (0.00-0.03); Immature Granulocytes Pct Auto 0.3 % (0.0-0.5); Lymphocytes Absolute Auto 1.7 10^3/uL (1.2-3.8); Lymphocytes Percent Auto 22.7 % (20.5-60.0); Mean Corpuscular HGB Conc 32.9 g/dL (29.9-35.2); Mean Corpuscular Hemoglobin 29.2 pg (26.7-34.0); Mean Corpuscular Volume 88.5 fL (81.0-99.0); Mean Platelet Volume 8.7 fL (9.5-13.5); Monocytes Absolute Auto 0.8 10^3/uL (0.3-0.8); Neutrophils Absolute Auto 4.8 10^3/uL (1.4-6.5); Neutrophils Percent Auto 63.2 % (43.0-75.0); Platelet Count 118 10^3/uL (150-450); Red Blood Count 2.88 10^6/uL (4.20-5.40); White Blood Count 7.5 10^3/uL (4.0-11.0)
[2024-03-27] MEDS: LISINOPRIL 10 MG TABLET PO (10:00)
[2024-03-27] MEDS: ATORVASTATIN CALCIUM 20 MG TABLET PO (10:00)
[2024-03-27] MEDS: CALCITONIN,SALMON,SYNTHETIC 30 SPRAY/3.7 ML BOTTLE NS (10:00)
[2024-03-27] MEDS: CETIRIZINE HCL 10 MG TABLET PO (10:00)
--- NOTE | 2024-03-27 11:13 | REH.PTDLY ---
Physical Therapy Daily Note PT Daily Note/Assess Start: 03/26/24 12:09 Freq: Status: Active Protocol: Document 03/27/24 11:08 MOHSEN (Rec: 03/27/24 11:13 MOHSEN [id number]) Physical Therapy Daily Note/Assessment Time In 10:20 Time Out 10:40 Subjective Pt very fearful of falling, almost in tears when thinking about having to get out of bed . States she can't do it as she doesn't want to fall, requires encouragement. Therapeutic Activity Minutes (minutes) 8 Therapeutic Activity Units 1 Chair Transfer Ability Moderate Assist,2 Person Assist Therapeutic Activity Comments Pt requires Mod A x2 with supine to sit transfer, pt pushes back and cries out during this as she is afraid of sliding off bed onto floor. Once pt sitting bedside instructed pt in sit to stand transfer with ADVERTISING INSERTER blocking feet to prevent sliding, arm in arm with patient with 2 assist on each side pt stood Mod A x2. Once standing upright cues for posture and to take steps over to chair arm in arm. Pt sits in chair with chair alarm intact as pt is a fall risk. Total Therapy Minutes 8 Total Physical Therapy Units 1 Daily Note Summary Pt requires Mod A x2 with all transfers today, pt is very fearful creating a resistance when performing tasks. Needs lots of encouragement and reassurance for pt to feel safe. Pt will need to go to rehab upon DC for improved strength and mobility.
[2024-03-27] MEDS: ZINC OXIDE 30% CREAM 113.4 GM TUBE 1 APPLIC TOPICAL (12:42)
--- NOTE | 2024-03-27 13:10 | SWNOTE1 ---
SW called and spoke to pt's daughter over the phone. JONAH let her know that the [facility] can take pt once she is medically stable. Pt's daughter is on way here, SW to stop to room once she arrives.
--- NOTE | 2024-03-27 13:15 | SWNOTE1 ---
Updates sent to [facility], updates included progress note, PT/OT, med list, labs, and vitals.
[2024-03-27] MEDS: OXYCODONE HCL 5 MG TABLET PO (16:06)
[2024-03-27] MEDS: ALPRAZOLAM 0.25 MG TABLET PO (21:05)
[2024-03-27] MEDS: ENOXAPARIN SODIUM 40 MG/0.4 ML SYRINGE SUBQ (21:05)
[2024-03-28] VITALS (9 sets, daily range): BP systolic 130–159; BP diastolic 73–89; PULSE 79–93; TEMP 36.8–37.4; O2SAT 91–96
[2024-03-28] MEDS: OXYCODONE HCL 5 MG TABLET PO ×2 (00:34→10:59)
--- NOTE | 2024-03-28 00:36 | PC.NURSE ---
Pt calling out. When enter room, pt holding call light but yelling out. pt states that her feet hurt. Feet elevated on a pillow and pt medicated with Oxycodone 5mg for pain. Pt attempts to give journalists and other writers the call light. Explain to pt that it is to call for help. pt then states that she was going to get up and make cookies. Pt reminded she is in the hospital and to try to rest.
[2024-03-28] MEDS: LEVOTHYROXINE SODIUM 112 MCG TABLET PO (05:41)
[2024-03-28] MEDS: CALCIUM CARBONATE 600 MG TABLET PO ×3 (05:41→22:04)
[2024-03-28 06:22] LABS: Basophils Percent Auto 0.4 % (0.2-2.0); Eosinophils Percent Auto 0.4 % (0.9-7.0); Hematocrit 28.1 % (36.0-48.0); Hemoglobin 9.2 g/dL (12.0-16.0); Immature Granulocytes Abs Auto 0.04 10^3/uL (0.00-0.03); Immature Granulocytes Pct Auto 0.4 % (0.0-0.5); Lymphocytes Absolute Auto 1.6 10^3/uL (1.2-3.8); Mean Corpuscular HGB Conc 32.7 g/dL (29.9-35.2); Mean Corpuscular Volume 88.6 fL (81.0-99.0); Monocytes Absolute Auto 1.1 10^3/uL (0.3-0.8); Monocytes Percent Auto 11.1 % (1.7-12.0); Neutrophils Absolute Auto 6.7 10^3/uL (1.4-6.5); Neutrophils Percent Auto 70.7 % (43.0-75.0); Platelet Count 153 10^3/uL (150-450); Red Blood Count 3.17 10^6/uL (4.20-5.40); Red Cell Distribution Width 11.8 % (11.0-15.0); White Blood Count 9.4 10^3/uL (4.0-11.0)
[2024-03-28 06:35] LABS: BUN Creatinine Ratio 20.8; Carbon Dioxide 28.1 mmol/L (21.0-32.0); Chloride 100 mmol/L (98-107); Estimated GFR (African America >60 (>=60); Estimated GFR (Non-African Ame 56 (>=60); Glucose 102 mg/dL (74-106); Potassium 5.1 mmol/L (3.5-5.1); Sodium 135 mmol/L (136-145)
--- NOTE | 2024-03-28 07:55 | P.PN_ITS ---
Progress Note: Subjective Subjective Interval history: Patient does look better today. Seems to be less painful distress. Exam Constitutional Vital Signs, click to edit/add: Last Vital Signs Temp 99.4 F 03/28/24 05:37 Pulse 90 03/28/24 05:37 Resp 18 03/28/24 05:37 BP 147/80 H 03/28/24 05:37 Pulse Ox 94 L 03/28/24 05:37 O2 Del Method Room Air 03/28/24 05:37 Progress Note: Objective Labs Labs: Short CBC 03/28/24 Range/Units 05:59 WBC 9.4 (4.0-11.0) 10^3/uL Hgb 9.2 L (12.0-16.0) g/dL Hct 28.1 L (36.0-48.0) % Plt Count 153 (150-450) 10^3/uL BMP 03/28/24 05:59 Sodium 135 L Potassium 5.1 Chloride 100 Carbon Dioxide 28.1 BUN 20.0 H Creatinine 0.96 Glucose 102 Calcium 8.0 L Progress Note: A&P Assessment and Plan (1) Fall: Qualifiers: Encounter type: subsequent encounter Qualified Code(s): W19.XXXD - Unspecified fall, subsequent encounter (2) Chronic lower back pain: Qualifiers: Back pain laterality: bilateral Sciatica presence: without sciatica Qualified Code(s): M54.50 - Low back pain, unspecified; G89.29 - Other chronic pain (3) Chronic knee pain: Qualifiers: Laterality: bilateral Qualified Code(s): M25.561 - Pain in right knee; M25.562 - Pain in left knee; G89.29 - Other chronic pain (4) Ambulatory dysfunction: (5) Wheelchair dependence: (6) Hypertension: Qualifiers: Hypertension type: primary hypertension Qualified Code(s): I10 - Essential (primary) hypertension (7) HLD (hyperlipidemia): Qualifiers: Hyperlipidemia type: unspecified Qualified Code(s): E78.5 - Hyperlipidemia, unspecified (8) Hypothyroid: Qualifiers: Hypothyroidism type: unspecified Qualified Code(s): E03.9 - Hypothyroidism, unspecified Plan Admission findings: Uncontrolled hypertension status post fall with significant knee and low back pain, subacute T11 compression fracture. Acute kidney injury with creatinine 163.3% above baseline Severe arthritis bilateral knees and lumbar compression fracture requiring pain control-with physical therapy, highly recommend rehab for improved patient safety and risk of falls improvement -seems to be improving. Acute kidney injury-repeat labs this morning are pending. Continue to monitor Hyponatremia likely secondary to the above-stable Thrombocytopenia-monitor daily Peripheral edema -BNP up slightly from previous day. Will give 1 dose of diuretic today. Hypertension: So far stable with home medications HLD (hyperlipidemia): Continue with home medications Hypothyroid: Recent labs and no need to repeat-continue with home medications Moderate protein calorie malnutrition-diet management Admission status: Physical therapy to work with patient today, patient may need rehab, depending on results of laboratory testing, IV hydration i.e. medically necessary treatment, will span 2 midnights. Patient currently in need of rehab. Pending review, continue with medication adjustments as outlined above
[2024-03-28] MEDS: LISINOPRIL 10 MG TABLET PO (08:40)
[2024-03-28] MEDS: ALPRAZOLAM 0.25 MG TABLET PO ×2 (08:40→22:04)
[2024-03-28] MEDS: CETIRIZINE HCL 10 MG TABLET PO (08:40)
[2024-03-28] MEDS: ATORVASTATIN CALCIUM 20 MG TABLET PO (08:40)
[2024-03-28] MEDS: FUROSEMIDE 40 MG/4 ML VIAL IVP (08:43)
[2024-03-28] MEDS: CALCITONIN,SALMON,SYNTHETIC 30 SPRAY/3.7 ML BOTTLE NS (08:43)
--- NOTE | 2024-03-28 10:49 | PT.DAILY ---
Physical Therapy Daily Note PT Daily Note/Assess Start: 03/26/24 12:09 Freq: Status: Active Protocol: Document 03/28/24 10:46 DIA (Rec: 03/28/24 10:49 DIA [id number]) Physical Therapy Daily Note/Assessment Time In/Time Out Time In 10:20 Time Out 10:35 Pain In Pain N/A Pain Out Pain N/A Subjective Subjective Supine upon arrival. Daughter present. Agrees to get into BS chair. Pt very anxious of falling. Therapeutic Activity Time Therapeutic Activity Minutes (minutes) 10 Therapeutic Activity Units 1 Therapeutic Activity Treatment Bed Mobility Ability Moderate Assist,2 Person Assist Chair Transfer Ability Maximum Assist,2 Person Assist Therapeutic Activity Comments Supine>sit ModA+2 to sit EOB. Once EOB pt able to hold handrail of bed to stabilize herself at EOB. Pt sit>stand MaxA+2. Stand Pivot to chair MaxA+2. Pt reports she wet herself upon sitting in chair. New brief is donned around knees sit>stand MaxA+2 to get old brief off, pericare performed total assist, and then new brief pulled up. Returned to BS chair with call light in reach and daugther present. Total Physical Therapy Time Total Therapy Minutes 10 Total Physical Therapy Units 1 Summary Daily Note Summary Cont to require heavy assistance for transfers. Would benefit from SNF to regain strength to return to PLOF.
--- NOTE | 2024-03-28 11:19 | CM.NOTE ---
2nd Important Message From Medicare Notice discussed with pt, denies any questions or concerns.
--- NOTE | 2024-03-28 12:15 | SWNOTE1 ---
SW spoke to daughter about discharge plans for tomorrow if medically stable. Pt's daughter does want her to go by stretcher as she does not feel pt can get in to a car or be safe by wheelchair. SW to set up transport by stretcher for tomorrow. Pt tearful when SW came in and daughter voices she is just anxious and in pain, ready to go back to bed. Nursing will be in to get him back to bed. Daughter did ask if [facility] has counseling, JONAH to find out. SW to set up transport as well. JONAH called [facility] and they will be here at 11:00 for transport. JONAH notified nursing, daughter, and [facility]. JONAH did reach out to Chitra at [facility] and they do have a psychologist come in weekly, Chitra is not sure if there is extra cost, but if there is pt will get a bill in mail. SW to let daughter know. JONAH completed HENS and has a packet on med/surge for possible dc tomorrow.
--- NOTE | 2024-03-28 13:50 | SWNOTE1 ---
Updated progress notes, labs, vitals, nursing notes, and PT note sent to [facility].
--- NOTE | 2024-03-28 13:51 | SWNOTE1 ---
Plan is for discharge tomorrow at 11:00 by [facility] dianna flores.
[2024-03-28] MEDS: ENOXAPARIN SODIUM 40 MG/0.4 ML SYRINGE SUBQ (22:04)
[2024-03-29] MEDS: LEVOTHYROXINE SODIUM 112 MCG TABLET PO (05:33)
[2024-03-29] MEDS: CALCIUM CARBONATE 600 MG TABLET PO (05:33)
[2024-03-29 05:40] VITALS: BP 124/70; PULSE 75; TEMP 36.9; O2SAT 91
[2024-03-29 06:21] LABS: Basophils Percent Auto 0.3 % (0.2-2.0); Eosinophils Absolute Auto 0.2 10^3/uL (0.0-0.7); Eosinophils Percent Auto 2.1 % (0.9-7.0); Immature Granulocytes Abs Auto 0.04 10^3/uL (0.00-0.03); Immature Granulocytes Pct Auto 0.5 % (0.0-0.5); Lymphocytes Percent Auto 22.7 % (20.5-60.0); Mean Corpuscular HGB Conc 33.3 g/dL (29.9-35.2); Mean Corpuscular Hemoglobin 28.9 pg (26.7-34.0); Mean Corpuscular Volume 86.8 fL (81.0-99.0); Monocytes Absolute Auto 1.2 10^3/uL (0.3-0.8); Monocytes Percent Auto 13.7 % (1.7-12.0); Neutrophils Absolute Auto 5.3 10^3/uL (1.4-6.5); Neutrophils Percent Auto 60.7 % (43.0-75.0); Platelet Count 156 10^3/uL (150-450); Red Blood Count 3.11 10^6/uL (4.20-5.40); Red Cell Distribution Width 11.9 % (11.0-15.0); White Blood Count 8.8 10^3/uL (4.0-11.0)
[2024-03-29 06:48] LABS: Anion Gap 10.1; BUN Creatinine Ratio 21.2; Carbon Dioxide 28.7 mmol/L (21.0-32.0); Chloride 99 mmol/L (98-107); Estimated GFR (African America >60 (>=60); Estimated GFR (Non-African Ame 51 (>=60); Glucose 89 mg/dL (74-106); Potassium 3.8 mmol/L (3.5-5.1); Sodium 134 mmol/L (136-145)
--- NOTE | 2024-03-29 08:15 | PM.DS1 ---
DS: Providers Provider Date of admission: 03/25/24 16:25 Primary care physician: Pio Gibbs MD Consults: 03/25/24 13:59 Occupational Therapy Eval and Treat Routine Reason for consultation: Ambulatory dysfunction/weakness Physical Therapy Eval and Treat Routine Reason for consultation: Ambulatory dysfunction/weakness DS: Diagnosis Discharge Diagnosis (1) Fall: Qualifiers: Encounter type: subsequent encounter Qualified Code(s): W19.XXXD - Unspecified fall, subsequent encounter (2) Chronic lower back pain: Qualifiers: Back pain laterality: bilateral Sciatica presence: without sciatica Qualified Code(s): M54.50 - Low back pain, unspecified; G89.29 - Other chronic pain (3) Chronic knee pain: Qualifiers: Laterality: bilateral Qualified Code(s): M25.561 - Pain in right knee; M25.562 - Pain in left knee; G89.29 - Other chronic pain (4) Ambulatory dysfunction: (5) Wheelchair dependence: (6) Hypertension: Qualifiers: Hypertension type: primary hypertension Qualified Code(s): I10 - Essential (primary) hypertension (7) HLD (hyperlipidemia): Qualifiers: Hyperlipidemia type: unspecified Qualified Code(s): E78.5 - Hyperlipidemia, unspecified (8) Hypothyroid: Qualifiers: Hypothyroidism type: unspecified Qualified Code(s): E03.9 - Hypothyroidism, unspecified DS: Summary Hospital Course Hospital Course: 78 y o female, with chronic pain due to polyarthritis fell at home twice because her bedside commode broke while she was trying to pivot to get on the commode to use. Patient was brought in for evaluation on 03/25/24 as daughter could not get her into her wheelchair due to severe pain in multiple joints but mainly knees. X-ray consistent with subacute T11 compression fracture and severe osteoarthritis of her knees. Patient was provided pain control and at the time of discharge, pain was controlled on Tylenol and Tramadol. PT has seen the patient and agreed that shelter facility would best be suited. She also had BARBARA and was given IVF, then became too fluid overloaded so was given dose of lasix yesterday. ProBNP is down to 2113, Cr 1.04 at the time of discharge. She will be discharged today to [facility] for acute rehab. Status at Discharge Functional status at discharge: uses cane/walker Time Spent with Patient Time attestation: Total time spent providing and/or coordinating discharge services: Time spent: greater than 30 minutes Exam Narrative Exam Narrative: General: Patient is alert, and oriented to person, place and time with normal affect, proper hygiene Skin: no visible rashes, or ulcers Head: atraumatic, acephalic Eyes: PERRLA, no nystagmus present, conjunctiva clear, no scleral icterus Heart: Normal rate and rhythm, no murmurs/rubs/gallops Lungs: no audible wheezes, crackles and normal breath sounds all lung mina Musculoskeletal: muscle atrophy noted, ROM is limited due to being in hospital bed Neuro: CN II-X grossly intact Constitutional Vital Signs, click to edit/add: Last Vital Signs Temp 98.4 F 03/29/24 05:40 Pulse 75 03/29/24 05:40 Resp 18 03/29/24 05:40 BP 124/70 03/29/24 05:40 Pulse Ox 91 L 03/29/24 05:40 O2 Del Method Room Air 03/29/24 05:40 DS: Data Data Completed and Pending Labs on day of discharge: Labs from last 24 hours 03/29/24 06:00 WBC 8.8 RBC 3.11 L Hgb 9.0 L Hct 27.0 L MCV 86.8 MCH 28.9 MCHC 33.3 RDW 11.9 Plt Count 156 MPV 9.0 L Neut % (Auto) 60.7 Lymph % (Auto) 22.7 [place] % (Auto) 13.7 H Eos % (Auto) 2.1 Baso % (Auto) 0.3 Neut # (Auto) 5.3 Lymph # (Auto) 2.0 [place] # (Auto) 1.2 H Eos # (Auto) 0.2 Baso # (Auto) 0.0 Abs Immat Gran (auto) 0.04 H Imm/Tot Granulo (auto) 0.5 Sodium 134 L Potassium 3.8 Chloride 99 Carbon Dioxide 28.7 Anion Gap 10.1 BUN 22.0 H Creatinine 1.04 H Est GFR ( Amer) >60 Est GFR (Non-Af Amer) 51 L BUN/Creatinine Ratio 21.2 Glucose 89 Calcium 8.0 L NT-Pro-B Natriuret Pep 2113.0 H* Discharge Plan Discharge Disposition: Xfer SNF Discharge Medications: New acetaminophen 325 mg Tablet 650 mg PO Q4H PRN (Reason: Pain 1-4) Qty: 30 0RF cetirizine 10 mg Tablet 10 mg PO DAILY Qty: 30 0RF calcium carbonate 600 mg calcium (1,500 mg) Tablet 600 mg PO TID Qty: 30 0RF calcitonin (salmon) 200 unit/actuation [place],Non-Aerosol 1 spray intranasal QD Qty: 3.7 0RF hyoscyamine sulfate 0.125 mg Tablet, Sublingual 0.125 mg sublingual QID PRN (Reason: Cramping) Qty: 30 0RF docusate sodium 100 mg Capsule 100 mg PO BID PRN (Reason: Constipation) Qty: 30 0RF hydroxyzine pamoate 25 mg Capsule 25 mg PO QID PRN (Reason: Anxiety) Qty: 30 0RF zinc oxide [Diaper Rash] 40 % Ointment 1 applic topical QID PRN (Reason: Irritation) Qty: 57 0RF Continued simvastatin 40 mg tablet 40 mg PO DAILY levothyroxine 112 mcg tablet 112 mcg PO .before breakfast lisinopril 10 mg tablet 10 mg PO DAILY Changed tramadol 50 mg tablet 50 mg PO Q8H PRN (Reason: pain) 2 Days Qty: 6 0RF Print Language: Turkish 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
[2024-03-29 09:36] VITALS: BP 138/69
[2024-03-29] MEDS: HYDROXYZINE PAMOATE 25 MG CAPSULE PO (09:36)
[2024-03-29] MEDS: ATORVASTATIN CALCIUM 20 MG TABLET PO (09:36)
[2024-03-29] MEDS: OXYCODONE HCL 5 MG TABLET PO (09:36)
[2024-03-29] MEDS: CETIRIZINE HCL 10 MG TABLET PO (09:36)
[2024-03-29] MEDS: CALCITONIN,SALMON,SYNTHETIC 30 SPRAY/3.7 ML BOTTLE NS (09:36)
[2024-03-29] MEDS: LISINOPRIL 10 MG TABLET PO (09:36)
--- NOTE | 2024-03-29 11:14 | PC.NURSE ---
Report given to Dulce at [facility]. [facility] here now for transport.
== END 2024-03-29 11:15 | DRG 683 ==
LOC: ER 12:18 → MS 03-26 15:25
PROVIDERS: Internal Medicine; Admitting Provider Family Medicine; Emergency Provider Emergency Medicine Emergency Medical Services; PCP Family Medicine; Visit Provider Family Medicine
DX: N17.9 Acute kidney failure, unspecified (principal); E44.0 Moderate protein-calorie malnutrition; M48.54XA Collapsed vertebra, not elsewhere classified, thoracic region, initial encounter for fracture; E87.1 Hypo-osmolality and hyponatremia; M48.56XA Collapsed vertebra, not elsewhere classified, lumbar region, initial encounter for fracture; M17.0 Bilateral primary osteoarthritis of knee; M54.50 Low back pain, unspecified; G89.29 Other chronic pain; M25.561 Pain in right knee; M25.562 Pain in left knee; Z99.3 Dependence on wheelchair; I10 Essential (primary) hypertension; E78.5 Hyperlipidemia, unspecified; E03.9 Hypothyroidism, unspecified; Z91.81 History of falling; F41.9 Anxiety disorder, unspecified; R10.9 Unspecified abdominal pain; R60.0 Localized edema; I87.2 Venous insufficiency (chronic) (peripheral); E86.0 Dehydration; R26.89 Other abnormalities of gait and mobility; D69.6 Thrombocytopenia, unspecified; M85.80 Other specified disorders of bone density and structure, unspecified site; E11.9 Type 2 diabetes mellitus without complications; Z68.22 Body mass index [BMI] 22.0-22.9, adult; M62.50 Muscle wasting and atrophy, not elsewhere classified, unspecified site
CPT/HCPCS: 36415; 72100; 72170; 73560; 73700; 74022; 80048; 80053; 81003; 83690; 83880; 85025; 94761; 96372; 96374; 97163; 97165; 97530; 97535; 99284; G0328; J1170; J1650; J1940; Q0177

== ENCOUNTER 2024-04-14 08:00 | Outpatient (OUT) | payer MEDICARE, SELFPAY ==
--- OUTSIDE RECORDS SUMMARY | 2024-04-14 08:06 | XMS_ITS | CCD ---
Author Organization [facility] CliniSyoh Care Team Providers Care 1St Pressman Name Role Phone Marisel Gibbs Primary Care Provider [phone] CHANEL FUENTES Referring Unavailable MARISEL GIBBS Primary [...] ARSEN Mane, DR JOINER Consulting Unavailable DR AMRISEL MENDEZ Primary Care Unavailable ARSEN Mane, DR JOINER Admitting Unavailable ARSEN ., DR JOINER Attending Unavailable ARSEN ., DR JOINER Consulting Unavailable DR SURYA MONTEMAYOR Consulting Unavailable Allergies Allergy Classification Reported Allergen(s) Allergy Type Date of Onset Reaction(s) Facility Cephalosporins (antibiotic) (1 source) cefTRIAXone Drug Allergy 0 [facility] Diclofenac / miSOPROStol (1 source) Diclofenac / miSOPROStol Drug Allergy 0 [facility] Penicillins (antibiotic) (1 source) Penicillins Drug Allergy 2 [facility] (1 source) cefTRIAXone Drug Allergy 0 [place], [place] (1 source) Diclofenac / miSOPROStol Drug Allergy 0 [place] (1 source) Penicillins Propensity to adverse reactions to drug 2 [place], [place] (2 sources) Iodides Propensity to adverse reactions to drug 0 [place] (2 sources) cefTRIAXone Drug Allergy 5 [facility] (1 source) Diclofenac / miSOPROStol Drug Allergy 3 [facility] (2 sources) Iodine (And Iodine Containting Drugs) Drug allergy (disorder) 4 [facility] (2 sources) Penicillin Drug Allergy [facility] Medications Current Medications Medication Drug Class(es) [...] Onset: 06-01-2022 Episodic Other aftercare (1 source) intermediate (current) use of aspirin; Translations: [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 Admission #: [id number] Family : Order #: [id number] CLICK HERE TO VIEW EXAM RADIOLOGY REPORT [...] QUALITY OF STUDY: Good. PERFUSION DEFECT: LOCATION: [place]. SIZE: Small (1-2 segments). SEVERITY: Mild. TYPE: [...] Chadwick MD on 09/28/2022 at 09:20 Normal [facility] ECHOCARDIO M/2D COMPLETEon 0 09-14-2022 ECHOCARDIO M/2D COMPLETE Patient: JERRY FINNEY Exam Date: 09/14/2022 : 1945 Gender:F Ordering : DR MARISEL GIBBS . Admission #: [id number] Family : Order #: [id number] CLICK HERE TO VIEW EXAM ECHOCARDIOGRAM REPORT [...] Klein M.D. on 09/14/2022 at 14:51 Normal [facility] MG MAMM SCREEN 3D MONCHO CADon 09-14-2022 MG MAMM SCREEN 3D MONCHO CAD Patient: JERRY FINNEY Exam Date: 09/14/2022 : 1945 Gender:F Ordering : DR MARISEL GIBBS . Admission #: [id number] Family : Order #: [id number] CLICK HERE TO VIEW EXAM RADIOLOGY REPORT [...] breast cancer at age 63. LOCATION: [facility] BREAST COMPOSITION: Heterogeneously dense,which may obscure small [...] MD on 09/14/2022 at 12:04 Normal [facility] BNPon 08-30-2022 Natriuretic peptide B (Bld) [Mass/Vol] 284.0 pg/mL Normal <=1,800.0 [facility] Comment on above: Performed By: #### L IPID, CMP, BNP, TSH, T7 #### [facility] [address] [address] [address] Rito Madison CBC AUTO DIFFon 08-30-2022 BASO # 0.0 103/ul Normal 0.0-0.1 [facility] Comment on above: Performed By: #### C BC ####[facility] [address] [id number]. Rito Madison Basophils/100 WBC (Bld) 0.4 % Normal 0.2-2.0 [facility] Comment on above: Performed By: #### C BC ####[facility] [address] [id number]. Rito Madison EO # 0.1 103/ul Normal 0.0-0.7 [facility] Comment on above: Performed By: #### C BC ####[facility] [address] [address]Dr. Rito Madison Eosinophils/100 WBC (Bld) 1.3 % Normal 0.9-7.0 [facility] Comment on above: Performed By: #### C BC ####[facility] [address]fe[address] [place], [place] [address]Dr. Rito Madison Erythrocyte distribution width (RBC) [Ratio] 14.5 % Normal 11.0-15.0 [facility] Comment on above: Performed By: #### C BC ####[facility] [address] [place], [place] [id number]. Rito Madison Hematocrit (Bld) [Volume fraction] 43.7 % Normal 36.0-48.0 [facility] Comment on above: Performed By: #### C BC ####[facility] [address] [place], [place] [address]Dr. Rito Madison Hemoglobin (Bld) [Mass/Vol] 14.2 g/dL Normal 12.0-16.0 [facility] Comment on above: Performed By: #### C BC ####[facility] [address] [address]Dr. Rito Madison IG # 0.02 10e3/ul Normal 0.00-0.03 [facility] Comment on above: Performed By: #### C BC ####[facility] [address] [place], [place] [address]Dr. Rito Madison IG % 0.3 % Normal 0.0-0.5 [facility] Comment on above: Performed By: #### C BC ####[facility] [address] [address]Dr. Rito Madison LYMPH # 1.8 103/ul Normal 1.2-3.8 [facility] Comment on above: Performed By: #### C BC ####[facility] [address] [address]Dr. Rito Madison Lymphocytes/100 WBC (Bld) 22.9 % Normal 20.5-60.0 [facility] Comment on above: Performed By: #### C BC ####[facility] [address] [address]Dr. Rito Los MANUAL DIFF REQ NO Normal [facility] Comment on above: Performed By: #### C BC ####[facility] [address] [address]Dr. Rito Los MCH (RBC) [Entitic mass] 28.7 pg Normal 26.7-34.0 [facility] Comment on above: Performed By: #### C BC ####[facility] [address] [address]Dr. Rito Madison MCHC (RBC) [Mass/Vol] 32.5 g/dL Normal 29.9-35.2 [facility] Comment on above: Performed By: #### C BC ####[facility] [address] [address]Dr. Rito Los MCV (RBC) [Entitic vol] 88.5 fL Normal 81.0-99.0 [facility] Comment on above: Performed By: #### C BC ####[facility] [address] [address]Dr. Rito Los MONO # 0.5 103/ul Normal 0.3-0.8 [facility] Comment on above: Performed By: #### C BC ####[facility] [address] [address]Dr. Rito Los Monocytes/100 WBC (Bld) 6.4 % Normal 1.7-12.0 [facility] Comment on above: Performed By: #### C BC ####[facility] [address] [place], [place] [address]Qo. Rito Madison NEUT # 5.4 103/ul Normal 1.4-6.5 [facility] Comment on above: Performed By: #### C BC ####[facility] [address] [address]Dr. Rito Los Neutrophils/100 WBC (Bld) 68.7 % Normal 43.0-75.0 [facility] Comment on above: Performed By: #### C BC ####[facility] [address] [address]Dr. Rito Madison Platelet mean volume (Bld) [Entitic vol] 8.2 fL Critically low 9.5-13.5 [facility] Comment on above: Performed By: #### C BC ####[facility] [address] [address]Dr. Rito Madison PLT 238 103/ul Normal 150-450 [facility] Comment on above: Performed By: #### C BC ####[facility] [address] [address]Dr. Yolyjayda Madison RBC 4.94 106/ul Normal 4.20-5.40 [facility] Comment on above: Performed By: #### C BC ####[facility] [address] [address]Dr. Rito Los WBC 7.8 103/ul Normal 4.0-11.0 [facility] Comment on above: Performed By: #### C BC ####[facility] [address] [address]DrAntonietta Yolyjayda Madison FREE THYROXINE INDEX T7on FTI 2.88 Normal 1.30-4.50 [facility] Comment on above: Performed By: #### L IPID, CMP, BNP, TSH, T7 #### [facility] [address] [place], [place] [address] Dr. Rito Madison T3U 36.0 % Normal 30.0-39.0 [facility] Comment on above: Performed By: #### L IPID, CMP, BNP, TSH, T7 #### [facility] [address] [address] [address] Rito Madison T4 [Mass/Vol] 8.00 ug/dL Normal 4.80-13.90 [facility] Comment on above: Performed By: #### L IPID, CMP, BNP, TSH, T7 #### [facility] [address] [address] [address] Rito Madison GLYCOHEMOGLOBIN A1Con 2022 ADA RECOMMENDATION SEE BELOW Normal [facility] Comment on above: Result Comment: ADA RECOMMENDED LIMIT 4.0 - 6.0 ADA THERAPEUTIC TARGET < 7.0 ACTION SUGGESTED > 7.0 Performed By: #### A 1C #### [facility] [address] [place] [address] Dr. Rito Madison Glucose [Mass/Vol] 111 mg/dL Normal [facility] Comment on above: Performed By: #### A 1C #### [facility] [address] [place] [address] Dr. Rito Madison HbA1c (Bld) [Mass fraction] 5.5 % Normal 4.5-6.2 [facility] Comment on above: Performed By: #### A 1C #### [facility] [address] [place] [address] Dr. Rito Madison IRONon 08-30-2022 Iron [Mass/Vol] 125.0 ug/dL Normal 50.0-170.0 [facility] Comment on above: Performed By: #### I VINAYAK ####[facility] [address] [address]Dr. Rito Madison LIPID PROFILEon 08-30-2022 CHOL-HDL RATIO NORM SEE BELOW Normal [facility] Comment on above: Result Comment: 3.3 - 4.4 LOW RISK 4.4 - 7.1 AVERAGE RISK 7.1 - 11.0 MODERATE RISK >11.0 HIGH RISK Performed By: #### L IPID, CMP, BNP, TSH, T7 #### [facility] [address] [address] [address] Rito Madison Cholesterol [Mass/Vol] 203 mg/dL Critically high <=200 [facility] Comment on above: Performed By: #### L IPID, CMP, BNP, TSH, T7 #### [facility] [address] [address] [address] Rito Madison Cholesterol in HDL [Mass/Vol] 79 mg/dL Critically high 40-60 [facility] Comment on above: Performed By: #### L IPID, CMP, BNP, TSH, T7 #### [facility] [address] [address] [address] Rito Madison Cholesterol in LDL [Mass/Vol] 108.6 mg/dL Normal [facility] Comment on above: Performed By: #### L IPID, CMP, BNP, TSH, T7 #### [facility] [address] [place] [address] Dr. Rito Madison Cholesterol.total/Vivian sterol in HDL [Mass ratio] 2.6 {ratio} Normal [facility] Comment on above: Performed By: #### L IPID, CMP, BNP, TSH, T7 #### [facility] [address] [address] [address] Rito Madison HDL NORMAL > or = 60 mg/dl - LO W CARDIOVASCULAR RISK <40 mg/dl - HIGH CARDIOVASCULAR RISK Normal [facility] Comment on above: Performed By: #### L IPID, CMP, BNP, TSH, T7 #### [facility] [address] [address] [address] Rito Madison LDL CALC NORMAL SEE BELOW Normal [facility] Comment on above: Result Comment: <100 mg/dl OPTIMAL 100 - 129 mg/dl NEAR OR ABOVE OPTIMAL 130 - 159 mg/dl BORDERLINE HIGH 160 - 189 mg/dl HIGH >190 mg/dl VERY HIGH Performed By: #### L IPID, CMP, BNP, TSH, T7 #### [facility] [address] [address] [address] Rito Madison Triglyceride [Mass/Vol] 77 mg/dL Normal <=150 [facility] Comment on above: Performed By: #### L IPID, CMP, BNP, TSH, T7 #### [facility] [address] [address] [address] Rito Madison VLDL CALC 15.4 mg/dL Normal [facility] Comment on above: Performed By: #### L IPID, CMP, BNP, TSH, T7 #### [facility] [address] [place] [address] Dr. Rito Madison PROF 14(COMP METB)on 023 Albumin [Mass/Vol] 3.6 g/dL Normal 3.4-5.0 [facility] Comment on above: Performed By: #### L IPID, CMP, BNP, TSH, T7 #### [facility] [address] [place] [address] Dr. Rito Madison Albumin/Globulin [Mass ratio] 1.0 {ratio} Normal [facility] Comment on above: Performed By: #### L IPID, CMP, BNP, TSH, T7 #### [facility] [address] [place] [address] Dr. Rito Madison ALP [Catalytic activity/Vol] 81 U/L Normal 46-116 [facility] Comment on above: Performed By: #### L IPID, CMP, BNP, TSH, T7 #### [facility] [address] [place] [address] Dr. Rito Madison ALT [Catalytic activity/Vol] 49 U/L Normal 14-59 [facility] Comment on above: Performed By: #### L IPID, CMP, BNP, TSH, T7 #### [facility] [address] [place] [address] Dr. Rito Madison Anion gap [Moles/Vol] 12.6 mmol/L Normal [facility] Comment on above: Performed By: #### L IPID, CMP, BNP, TSH, T7 #### [facility] [address] [place] [address] Dr. Rito Madison AST [Catalytic activity/Vol] 32 U/L Normal 15-37 [facility] Comment on above: Performed By: #### L IPID, CMP, BNP, TSH, T7 #### [facility] [address] [place] [address] Dr. Rito Madison Bilirubin [Mass/Vol] 0.7 mg/dL Normal 0.2-1.0 [facility] Comment on above: Performed By: #### L IPID, CMP, BNP, TSH, T7 #### [facility] [address] [place] [address] Dr. Rito Madison Calcium [Mass/Vol] 9.3 mg/dL Normal 8.5-10.1 [facility] Comment on above: Performed By: #### L IPID, CMP, BNP, TSH, T7 #### [facility] [address] [place] [address] Dr. Rito Madison Chloride [Moles/Vol] 103 mmol/L Normal 98-107 [facility] Comment on above: Performed By: #### L IPID, CMP, BNP, TSH, T7 #### [facility] [address] [place] [address] Dr. Rito Madison CO2 [Moles/Vol] 29.5 mmol/L Normal 21.0-32.0 [facility] Comment on above: Performed By: #### L IPID, CMP, BNP, TSH, T7 #### [facility] [address] [place] [address] Dr. Rito Madison Creatinine [Mass/Vol] 0.79 mg/dL Normal 0.55-1.02 [facility] Comment on above: Performed By: #### L IPID, CMP, BNP, TSH, T7 #### [facility] [address] [place] [address] Dr. Rito Madison EGFR-AF BOLIVIAN >60 Normal >=60 [facility] Comment on above: Performed By: #### L IPID, CMP, BNP, TSH, T7 #### [facility] [address] [place] [address] Dr. Rito Madison EGFR-NON AF BOLIVIAN >60 Normal >=60 [facility] Comment on above: Performed By: #### L IPID, CMP, BNP, TSH, T7 #### [facility] [address] [place] [address] Dr. Rito Madison Globulin (S) [Mass/Vol] 3.6 g/dL Normal [facility] Comment on above: Performed By: #### L IPID, CMP, BNP, TSH, T7 #### [facility] [address] [address] [address] Rito Madison Glucose [Mass/Vol] 88 mg/dL Normal 74-106 [facility] Comment on above: Performed By: #### L IPID, CMP, BNP, TSH, T7 #### [facility] [address] [place] [address] Dr. Rito Madison Potassium [Moles/Vol] 4.1 mmol/L Normal 3.5-5.1 [facility] Comment on above: Performed By: #### L IPID, CMP, BNP, TSH, T7 #### [facility] [address] [place] [address] Dr. Rito Madison Protein [Mass/Vol] 7.2 g/dL Normal 6.4-8.2 [facility] Comment on above: Performed By: #### L IPID, CMP, BNP, TSH, T7 #### [facility] [address] [place] [address] Dr. Rito Madison Sodium [Moles/Vol] 141 mmol/L Normal 136-145 [facility] Comment on above: Performed By: #### L IPID, CMP, BNP, TSH, T7 #### [facility] [address] [place] [address] Dr. Rito Madison Urea nitrogen [Mass/Vol] 17.0 mg/dL Normal 7.0-18.0 [facility] Comment on above: Performed By: #### L IPID, CMP, BNP, TSH, T7 #### [facility] [address] [place] [address] Dr. Rito Madison Urea nitrogen/Creatinine [Mass ratio] 21.5 mg/mg Normal [facility] Comment on above: Performed By: #### L IPID, CMP, BNP, TSH, T7 #### [facility] [address] [place] [address] Dr. Rito Madison TSHon 08-30-2022 TSH 4.464 uIU/mL Critically high 0.358-3.740 [facility] Comment on above: Performed By: #### L IPID, CMP, BNP, TSH, T7 #### [facility] [address] [place], [place] [address] Dr. Rito Madison CBC AUTO DIFFon 06-01-2022 BASO # 0.0 103/ul Normal 0.0-0.1 [facility] Comment on above: Performed By: #### C BC ####[facility] [address] [address]DrAntonietta Madison Basophils/100 WBC (Bld) 0.2 % Normal 0.2-2.0 [facility] Comment on above: Performed By: #### C BC ####[facility] [address] [address]DrAntonietta Madison EO # 0.1 103/ul Normal 0.0-0.7 [facility] Comment on above: Performed By: #### C BC ####[facility] [address] [address]DrAntonietta Madison Eosinophils/100 WBC (Bld) 1.5 % Normal 0.9-7.0 [facility] Comment on above: Performed By: #### C BC ####[facility] [address] [address]DrAntonietta Madison Erythrocyte distribution width (RBC) [Ratio] 12.9 % Normal 11.0-15.0 [facility] Comment on above: Performed By: #### C BC ####[facility] [address] [address]DrAntonietta Madison Hematocrit (Bld) [Volume fraction] 44.4 % Normal 36.0-48.0 [facility] Comment on above: Performed By: #### C BC ####[facility] [address] [address]DrAntonietta Madison Hemoglobin (Bld) [Mass/Vol] 14.7 g/dL Normal 12.0-16.0 [facility] Comment on above: Performed By: #### C BC ####[facility] [address] [address]DrAntonietta Madison IG # 0.03 10e3/ul Normal 0.00-0.03 [facility] Comment on above: Performed By: #### C BC ####[facility] [address] [address]Dr. Rito Madison IG % 0.3 % Normal 0.0-0.5 [facility] Comment on above: Performed By: #### C BC ####[facility] [address] [address]Dr. Yolyjayda Madison LYMPH # 1.7 103/ul Normal 1.2-3.8 [facility] Comment on above: Performed By: #### C BC ####[facility] [address] [address]Dr. Yolyjayda Madison Lymphocytes/100 WBC (Bld) 19.5 % Critically low 20.5-60.0 [facility] Comment on above: Performed By: #### C BC ####[facility] [address] [place], [place] [address]Dr. Rito Madison MANUAL DIFF REQ NO Normal [facility] Comment on above: Performed By: #### C BC ####[facility] [address] [place], [place] [address]Dr. Yolyjayda Madison MCH (RBC) [Entitic mass] 28.3 pg Normal 26.7-34.0 [facility] Comment on above: Performed By: #### C BC ####[facility] [address] [address]Dr. Yolyjayda Madison MCHC (RBC) [Mass/Vol] 33.1 g/dL Normal 29.9-35.2 [facility] Comment on above: Performed By: #### C BC ####[facility] [address] [place], [place] [address]Dr. Yolyjayda Madison MCV (RBC) [Entitic vol] 85.4 fL Normal 81.0-99.0 [facility] Comment on above: Performed By: #### C BC ####[facility] [address] [place], [place] [address]Dr. Rito Madison MONO # 0.7 103/ul Normal 0.3-0.8 [facility] Comment on above: Performed By: #### C BC ####[facility] [address] [place] [address]Dr. Rito Madison Monocytes/100 WBC (Bld) 8.3 % Normal 1.7-12.0 [facility] Comment on above: Performed By: #### C BC ####[facility] [address] [address]Dr. Rito Madison NEUT # 6.3 103/ul Normal 1.4-6.5 [facility] Comment on above: Performed By: #### C BC ####[facility] [address] [address]Dr. Rito Madison Neutrophils/100 WBC (Bld) 70.2 % Normal 43.0-75.0 [facility] Comment on above: Performed By: #### C BC ####[facility] [address] [address]Dr. Rito Madison Platelet mean volume (Bld) [Entitic vol] 8.4 fL Critically low 9.5-13.5 [facility] Comment on above: Performed By: #### C BC ####[facility] Rx[address] [place], [place] [address]Dr. Rito Madison PLT 295 103/ul Normal 150-450 [facility] Comment on above: Performed By: #### C BC ####[facility] [address] [address]Dr. Rito Madison RBC 5.20 106/ul Normal 4.20-5.40 [facility] Comment on above: Performed By: #### C BC ####[facility] [address] [place] [address]Dr. Rito Madison WBC 8.9 103/ul Normal 4.0-11.0 [facility] Comment on above: Performed By: #### C BC ####[facility] [address] [place] [address]DrAntonietta Rito Madison PROF CHEM 8 (BAS METB)on Anion gap [Moles/Vol] 9.8 mmol/L Normal [facility] Comment on above: Performed By: #### B MP #### [facility] [address] [address] [address] Rito Madison Calcium [Mass/Vol] 9.2 mg/dL Normal 8.5-10.1 [facility] Comment on above: Performed By: #### B MP #### [facility] [facility] [address] [address] [address] Rito Madison Chloride [Moles/Vol] 103 mmol/L Normal 98-107 [facility] Comment on above: Performed By: #### B MP #### [facility] [address] [address] [address] Rito Madison CO2 [Moles/Vol] 25.8 mmol/L Normal 21.0-32.0 [facility] Comment on above: Performed By: #### B MP #### [facility] [address] [address] [address] Rito Madison Creatinine [Mass/Vol] 0.86 mg/dL Normal 0.55-1.02 [facility] Comment on above: Performed By: #### B MP #### [facility] [address] [address] [address] Rito Madison EGFR-AF BOLIVIAN >60 Normal >=60 [facility] Comment on above: Performed By: #### B MP #### [facility] [address] [address] [address] Rito Madison EGFR-NON AF BOLIVIAN >60 Normal >=60 [facility] Comment on above: Performed By: #### B MP #### [facility] [address] [address] [address] Rito Madison Glucose [Mass/Vol] 109 mg/dL Critically high 74-106 [facility] Comment on above: Performed By: #### B MP #### [facility] [address] [address] [address] Rito Madison Potassium [Moles/Vol] 3.6 mmol/L Normal 3.5-5.1 [facility] Comment on above: Performed By: #### B MP #### [facility] [address] [address] [address] Rito Madison Sodium [Moles/Vol] 135 mmol/L Critically low 136-145 [facility] Comment on above: Performed By: #### B MP #### [facility] [address] [address] [address] Rito Madison Urea nitrogen [Mass/Vol] 14.0 mg/dL Normal 7.0-18.0 [facility] Comment on above: Performed By: #### B MP #### [facility] [address] [address] [address] Rito Madison Urea nitrogen/Creatinine [Mass ratio] 16.3 mg/mg Normal [facility] Comment on above: Performed By: #### B MP #### [facility] [address] [place] [address] Dr. Rito Madison AMYLASEon 05-07-2022 Amylase [Catalytic activity/Vol] 82 U/L Normal 25-115 [facility] Comment on above: Performed By: #### L IPA, CMP, TRINY ####[facility] [address] [address]Dr. Rito Madison CBC AUTO DIFFon 05-07-2022 BASO # 0.0 103/ul Normal 0.0-0.1 [facility] Comment on above: Performed By: #### C BC ####[facility] [address] [address]Dr. Rito Madison Basophils/100 WBC (Bld) 0.4 % Normal 0.2-2.0 [facility] Comment on above: Performed By: #### C BC ####[facility] [address] [address]11DrAntonietta Madison EO # 0.2 103/ul Normal 0.0-0.7 [facility] Comment on above: Performed By: #### C BC ####[facility] [address] [address]Dr. Rito Madison Eosinophils/100 WBC (Bld) 2.0 % Normal 0.9-7.0 [facility] Comment on above: Performed By: #### C BC ####[facility] [address] [address]Dr. Rito Madison Erythrocyte distribution width (RBC) [Ratio] 12.8 % Normal 11.0-15.0 [facility] Comment on above: Performed By: #### C BC ####[facility] [address] [address]Dr. Rito Madison Hematocrit (Bld) [Volume fraction] 42.7 % Normal 36.0-48.0 [facility] Comment on above: Performed By: #### C BC ####[facility] [address] [place], [place] [address]Dr. Rito Madison Hemoglobin (Bld) [Mass/Vol] 14.2 g/dL Normal 12.0-16.0 [facility] Comment on above: Performed By: #### C BC ####[facility] [address] [place], [place] [address]Dr. Rito Madison IG # 0.03 10e3/ul Normal 0.00-0.03 [facility] Comment on above: Performed By: #### C BC ####[facility] [address] [place], [place] [address]Dr. Rito Madison IG % 0.4 % Normal 0.0-0.5 [facility] Comment on above: Performed By: #### C BC ####[facility] [address] [place], [place] [address]Dr. Rito Madison LYMPH # 2.2 103/ul Normal 1.2-3.8 [facility] Comment on above: Performed By: #### C BC ####[facility] [address]oms[address]cl[address] [place], [place] [address]Dr. Rito Madison Lymphocytes/100 WBC (Bld) 26.0 % Normal 20.5-60.0 [facility] Comment on above: Performed By: #### C BC ####[facility] [address] [address]Dr. Rito Madison MANUAL DIFF REQ NO Normal [facility] Comment on above: Performed By: #### C BC ####[facility] [address] [address]Dr. Rito Madison MCH (RBC) [Entitic mass] 29.2 pg Normal 26.7-34.0 [facility] Comment on above: Performed By: #### C BC ####[facility] [address] [address]Dr. Rito Madison MCHC (RBC) [Mass/Vol] 33.3 g/dL Normal 29.9-35.2 [facility] Comment on above: Performed By: #### C BC ####[facility] [address] [address]Dr. Rito Los MCV (RBC) [Entitic vol] 87.7 fL Normal 81.0-99.0 [facility] Comment on above: Performed By: #### C BC ####[facility] [address] [place], [place] [address]Dr. Rito Madison MONO # 0.8 103/ul Normal 0.3-0.8 [facility] Comment on above: Performed By: #### C BC ####[facility] [address] [address]Dr. Yolyjayda Madison Monocytes/100 WBC (Bld) 9.2 % Normal 1.7-12.0 [facility] Comment on above: Performed By: #### C BC ####[facility] [address] [place], [place] [address]Dr. Yolyjayda Madison NEUT # 5.3 103/ul Normal 1.4-6.5 [facility] Comment on above: Performed By: #### C BC ####[facility] [address] [place], [place] [address]Dr. Rito Madison Neutrophils/100 WBC (Bld) 62.0 % Normal 43.0-75.0 [facility] Comment on above: Performed By: #### C BC ####[facility] [address] [place], [place] [address]Dr. Rito Madison Platelet mean volume (Bld) [Entitic vol] 8.5 fL Critically low 9.5-13.5 [facility] Comment on above: Performed By: #### C BC ####[facility] [address] [place], [place] [address]Os. Rito Madison PLT 291 103/ul Normal 150-450 [facility] Comment on above: Performed By: #### C BC ####[facility] [address] [place], [place] [address]Kl. Rito Madison RBC 4.87 106/ul Normal 4.20-5.40 [facility] Comment on above: Performed By: #### C BC ####[facility] [address] [place], [place] [address]Ge. Rito Madison WBC 8.5 103/ul Normal 4.0-11.0 [facility] Comment on above: Performed By: #### C BC ####[facility] Htvr[address]ek[address] [place], [place] [address]Df. Rito [address] CT ABD/PELVIS WO CONon 05-07 [...] CATHRYN OATES Date: 2022-05-07 06:53 Normal [facility] CULTURE URINEon 05-07-2022 CULTURE URINE Culture Observations : No growth Normal [facility] Comment on above: Performed By: #### U RCX ####[facility] [address] [place], [place] [address]MtAntonietta MARINO URINE PROFILEon 2 Bilirubin Ql (U) Negative Normal NEGATIVE [facility] Comment on above: Performed By: #### E TAMMY SANTIZO ####[facility] [address] [address]Dr. Rito Madison Clarity (U) CLEAR Normal CLEAR [facility] Comment on above: Performed By: #### RUBEN MARIERO ####[facility] [address] [place], [place] [address]Dr. Yolyjadya Madison Color (U) LT. YELLOW Normal YELLOW [facility] Comment on above: Performed By: #### RUBEN MARIERO ####[facility] [address] [place], [place] [address]Dr. Yolyjayda Madison ERUAHD A micrscopic examination will be performed if indicated. Normal [facility] Comment on above: Performed By: #### RUBEN MARIERO ####[facility] [address] [place], [place] [address]Dr. Rito Madison Glucose Ql (U) Negative Normal NEGATIVE [facility] Comment on above: Performed By: #### MARV MARIEICRO ####[facility] P[address] [place], [place] [address]Dr. Yolyjayda oLs Hemoglobin Ql (U) Negative Normal NEGATIVE [facility] Comment on above: Performed By: #### RUBEN MARIERO ####[facility] Libctsucpc[address] [place], [place] [address]Dr. Rito Madison Ketones Ql (U) Negative Normal NEGATIVE [facility] Comment on above: Performed By: #### MARV MARIEICRO ####[facility] W[address]ps[address] [place], [place] [address]Dr. Rito Madison LEUKOCYTES MODERATE Abnormal NEGATIVE [facility] Comment on above: Performed By: #### MARV MARIEICRO ####[facility] [address] [place], [place] [address]Dr. Rito Madison Nitrite Ql (U) Negative Normal NEGATIVE [facility] Comment on above: Performed By: #### Jatinder SANTIZO UMICRO ####[facility] Y[address]so[address] [place], [place] [address]Dr. Rito Madison pH (U) 6.0 [pH] Normal 5-9 [facility] Comment on above: Performed By: #### RUBEN MARIERO ####[facility] [address] [address]Dr. Rito Madison SPEC GRAVITY 1.015 Normal 1.005-<=1.025 [facility] Comment on above: Performed By: #### RUBEN MARIERO ####[facility] [address] [address]Dr. Rito Madison UA PROTEIN Negative Normal NEGATIVE/ TRACE [facility] Comment on above: Performed By: #### Jatinder SANTIZO ICRO ####[facility] [address] [address]Dr. Rito Madison UR MICRO IND INDICATED Normal [facility] Comment on above: Performed By: #### Jatinder SANTIZO DAVIERO ####[facility] [address] [place], [place] [address]Dr. Rito Madison Urobilinogen Qn (U) 0.2 {Scarlet'U}/dL Normal 0.2 - 1. 0 [facility] Comment on above: Performed By: #### Jatinder SANTIZO [facility] ####[facility] [address] [place], [place] [address]Dr. Rito Madison LIPASEon 05-07-2022 Lipase [Catalytic activity/Vol] 171.0 U/L Normal 73.0-393.0 [facility] Comment on above: Performed By: #### L IPA, CMP, TRINY ####[facility] Upr[address] [place], [place] [address]Dr. Rito Madison PROF 14(COMP METB)on 022 Albumin [Mass/Vol] 3.6 g/dL Normal 3.4-5.0 [facility] Comment on above: Performed By: #### L IPA, CMP, TRINY ####[facility] V[address]otnhdnt[address] [place], [place] [address]Dr. Rito Madison Albumin/Globulin [Mass ratio] 0.9 {ratio} Normal [facility] Comment on above: Performed By: #### L IPA, CMP, TRINY ####[facility] Egmpqtjpcb[address] [place], [place] [address]Dr. Rito Madison ALP [Catalytic activity/Vol] 80 U/L Normal 46-116 [facility] Comment on above: Performed By: #### L IPA, CMP, TRINY ####[facility] [address] [address]Dr. Rito Madison ALT [Catalytic activity/Vol] 22 U/L Normal 14-59 [facility] Comment on above: Performed By: #### L IPA, CMP, TRINY ####[facility] F[address]wfs[address]hm[address] [place], [place] [address]Dr. Rito Madison Anion gap [Moles/Vol] 9.1 mmol/L Normal [facility] Comment on above: Performed By: #### L IPA, CMP, TRINY ####[facility] Mviqwqmhzp[address] [place], [place] [address]Dr. Rito Madison AST [Catalytic activity/Vol] 25 U/L Normal 15-37 [facility] Comment on above: Performed By: #### L IPA, CMP, TRINY ####[facility] B[address]rsttieh[address] [place], [place] [address]Dr. Rito Madison Bilirubin [Mass/Vol] 0.6 mg/dL Normal 0.2-1.0 [facility] Comment on above: Performed By: #### L IPA CMP, TRINY ####[facility] [address] [place], [place] [address]Dr. Rito Madison Calcium [Mass/Vol] 9.1 mg/dL Normal 8.5-10.1 [facility] Comment on above: Performed By: #### L IPA, CMP, TRINY ####[facility] [address] [place], [place] [address]Dr. Rito Madison Chloride [Moles/Vol] 104 mmol/L Normal 98-107 [facility] Comment on above: Performed By: #### L IPA, CMP, TRINY ####[facility] X[address] [place], [place] [address]Dr. Rito Madison CO2 [Moles/Vol] 28.6 mmol/L Normal 21.0-32.0 [facility] Comment on above: Performed By: #### L IPA, CMP, TRINY ####[facility] [address] [address]Dr. Rito Madison Creatinine [Mass/Vol] 0.80 mg/dL Normal 0.55-1.02 [facility] Comment on above: Performed By: #### L IPA, CMP, TRINY ####[facility] [address] [address]Dr. Rito Madison EGFR-AF BOLIVIAN >60 Normal >=60 [facility] Comment on above: Performed By: #### L IPA, CMP, TRINY ####[facility] [address] [address]Dr. Rito Madison EGFR-NON AF BOLIVIAN >60 Normal >=60 [facility] Comment on above: Performed By: #### L IPA, CMP, TRINY ####[facility] [address] [address]Dr. Rito Madison Globulin (S) [Mass/Vol] 3.9 g/dL Normal [facility] Comment on above: Performed By: #### L IPA, CMP, TRINY ####[facility] [address] [address]Dr. Rito Madison Glucose [Mass/Vol] 107 mg/dL Critically high 74-106 [facility] Comment on above: Performed By: #### L IPA, CMP, TRINY ####[facility] [address] [address]Dr. Rito Madison Potassium [Moles/Vol] 3.7 mmol/L Normal 3.5-5.1 [facility] Comment on above: Performed By: #### L IPA, CMP, TRINY ####[facility] [address] [address]Dr. Rito Madison Protein [Mass/Vol] 7.5 g/dL Normal 6.4-8.2 [facility] Comment on above: Performed By: #### L IPA, CMP, TRINY ####[facility] [address] [address]Dr. Rito Madison Sodium [Moles/Vol] 138 mmol/L Normal 136-145 [facility] Comment on above: Performed By: #### L IPA, CMP, TRINY ####[facility] [address] [address]Dr. Yolyjayda Los Urea nitrogen [Mass/Vol] 14.0 mg/dL Normal 7.0-18.0 [facility] Comment on above: Performed By: #### L IPA, CMP, TRINY ####[facility] [address] [address]Dr. Rito Madison Urea nitrogen/Creatinine [Mass ratio] 17.5 mg/mg Normal [facility] Comment on above: Performed By: #### L IPA, CMP, TRINY ####[facility] [address] [address]Dr. Rito Madison URINE MICROSCOPIC ONLYon BACTERIA NONE SEEN Normal NONE SEEN [facility] Comment on above: Performed By: #### Jatinder RUJojo UMICRO ####[facility] [address] [place], [place] [address]Dr. Rito Madison Bacteria identified Cx Nom (U) INDICATED Normal [facility] Comment on above: Performed By: #### Jatinder SANTIZO UMICRO ####[facility] [address] [place], [place] [address]Dr. Rito Madison CAST NONE SEEN Normal NONE SEEN [facility] Comment on above: Performed By: #### Jatinder SANTIZO UMICRO ####[facility] [address]fwrfml[address] [place], [place] [address]Dr. Rito Madison Crystals LM Nom (Urine sed) NONE SEEN Normal NONE SEEN [facility] Comment on above: Performed By: #### E RUR, UMICRO ####[facility] [address] [address]Dr. Rito Madison Epithelial cells LM Ql (Urine sed) FEW Abnormal NONE SEEN /RARE [facility] Comment on above: Performed By: #### E RUR, UMICRO ####[facility] [address] [address]Dr. Rito Madison MUCOUS NONE SEEN Normal NONE SEEN [facility] Comment on above: Performed By: #### E RUR UMICRO ####[facility] [address] [place], [place] [address]Ev. Rito Madison RBC 0-2 Normal 0-2 [facility] Comment on above: Performed By: #### TAMMY MARIE ####[facility] [address] [place], [place] [address]Ku. Rito Madison WBC 10-20 Abnormal NONE SEEN [facility] Comment on above: Performed By: #### TAMMY MARIE ####[facility] [address] [place], [place] [address]Yc. Rito Madison MRI CSPINE WO CONon 03-23-20 [...] SURYA MONTEMAYOR Date: 2022-03-23 06:23 Normal [facility] XR CSPINE MIN 4 VIEWSon 08- XR [...] SURYA MONTEMAYOR Date: 2022-03-10 11:08 Normal [facility] EKG 12 LeadOrdered By: Taz Gan on 02-16-2021 Atrial Rate 58 BPM [employer] Phone: P [place] 67 degrees [employer] Phone: P-R Interval 156 ms [employer] Phone: [phone] Q-T Interval 446 ms [employer] Phone: QRS Duration 112 ms [employer] Phone: QTc Calculation (Bazett) 437 ms [employer] Phone: R [place] -75 degrees [employer] Phone: T [place] 27 degrees [employer] Phone: Ventricular Rate 58 BPM [employer] Phone: Sinus bradycardia Left axis deviation Pulmonary disease pattern T wave abnormality, consider anterior ischemia Abnormal ECG When compared with ECG of 19-MAY-2020 14:49, Incomplete right bundle branch block is no longer Present T wave inversion no longer evident in Inferior leads T wave inversion no longer evident in Lateral leads [employer] Phone: Marlo, Mhpn Incoming Ekg Results From [facility] [place] - 02/16/2021 9:14 AM EDT Sinus bradycardia Left axis deviation Pulmonary disease pattern T wave abnormality, consider anterior ischemia Abnormal ECG When compared with ECG of 19-MAY-2020 14:49, Incomplete right bundle branch block is no longer Present T wave inversion no longer evident in Inferior leads T wave inversion no longer evident in Lateral leads [facility]: [employer] Phone: MRSA DNA Probe, NasalOrdered By: Chanel Fuentes on 02-16-2021 MRSA, DNA, Nasal NEGATIVE: MRSA DNA not detected by nucleic acid amplification. NEGATIVE: MRSA DNA not detected by nucleic acid amplificati [facility]: Comment on above: Results should be used as an adjunct to nosocomial control efforts to identify patients needing enhanced precautions. The test is not intended to identify patients with staphylococcal infections. Results should not be used to guide or monitor treatment for MRSA infections. Specimen Description .NASAL SWAB [facility] [employer] Phone: [facility]: MRSA, DNA, Nasalon MRSA, DNA, Nasal NEGATIVE: MRSA DNA not detected by nucleic acid amplification. Normal [employer] [facility] Comment on above: Result Comment: Results should be used as an adjunct to nosocomial control efforts to identify patients needing enhanced precautions. The test is not intended to identify patients with staphylococcal infections. Results should not be used to guide or monitor treatment for MRSA infections. Performed By: #### M RSANO #### [facility] [address] [place] [address] [employer]: Rui Strasus DO [address] [place] [address] [employer]: Brody Remy MD Basic Metabolic PanelOrdered By: Taz Gan on 02-15-2021 Anion gap [Moles/Vol] 7 mmol/L Low 9 - 17 mmol/L [employer] Phone: Calcium [Mass/Vol] 9.0 mg/dL 8.6 - 10. 4 mg/dL [employer] Phone: Chloride [Moles/Vol] 103 mmol/L 98 - 10 7 mmol/L [employer] Phone: CO2 [Moles/Vol] 30 mmol/L 20 - 31 mmol/L [employer] Phone: Creatinine [Mass/Vol] 0.61 mg/dL 0.50 - 0.90 mg/dL [employer] Phone: GFR >60 >60 mL/min Bubbly Phone: GFR Non- >60 >60 mL/min [employer] Phone: GFR/1.73 sq M.predicted MDRD (S/P/Bld) [Vol rate/Area] [employer] Phone: Comment on above: Average GFR for 70 o r more years old: 75 mL/min/1.73sq m Chronic Kidney Disease: <60 mL/min/1.73sq m Kidney failure: <15 mL/min/1.73sq m eGFR calculated using average adult body mass. Additional eGFR calculator available at: http://www.Collisionable.com/multiple_crcl_2012.htm GFR/1.73 sq M.predicted MDRD (S/P/Bld) [Vol rate/Area] NOT REPORTED [employer] Phone: Glucose [Mass/Vol] 95 mg/dL 70 - 99 mg/dL [facility] [employer] Phone: Interpretation and review of laboratory results Abnormal [facility]: Potassium [Moles/Vol] 4.1 mmol/L 3.7 - 5.3 mmol/L [facility]: Sodium [Moles/Vol] 140 mmol/L 135 - 144 mmol/L [facility]: Urea nitrogen (BldV) [Mass/Vol] 16 mg/dL 8 - 23 mg/dL [facility] Phone: Urea nitrogen/Creatinine (Bld) [Mass ratio] NOT REPORTED [facility]: [employer] Phone: Basic Metabolic Profon 02-15 (cont.) Normal [facility] Comment on above: Result Comment: Aver age GFR for 70 or more years old: 75 mL/min/1.73sq m Chronic Kidney Disease: <60 mL/min/1.73sq m Kidney failure: <15 mL/min/1.73sq m eGFR calculated using average adult body mass. Additional eGFR calculator available at: http://www.Collisionable.eziCONEX/multiple_crcl_2012.htm Performed By: #### B ROSSI, CDP #### [facility] [address] [place], [place] [id number] [employer]: Rui Strauss DO Anion gap [Moles/Vol] 7 mmol/L Low 9-17 [facility] Comment on above: Performed By: #### B ROSSI, CDP #### [facility] [address] [place], [place] [id number] [employer]: Rui Strauss DO Calcium [Mass/Vol] 9.0 mg/dL Normal 8.6-10.4 [facility] Comment on above: Performed By: #### B ROSSI, CDP #### [facility] [address] [place] [address] [employer]: Rui Strauss DO Chloride [Moles/Vol] 103 mmol/L Normal 98-107 [facility] Comment on above: Performed By: #### B ROSSI, CDP #### [facility] [address] [place] [address] [employer]: Rui Strauss DO CO2 [Moles/Vol] 30 mmol/L Normal 20-31 [facility] Comment on above: Performed By: #### B ROSSI, CDP #### [facility] [address] [place] [address] [employer]: Rui Strauss DO Creatinine [Mass/Vol] 0.61 mg/dL Normal 0.50-0.90 [facility] Comment on above: Performed By: #### B ROSSI, CDP #### [facility] [place] [address] [employer]: Rui Strauss DO GFR, Amer >60 Normal >60 [facility] Comment on above: Performed By: #### B ROSSI, CDP #### [facility] [address] [facility] [place] [address] [employer]: Rui Strauss DO GFR,non Amer >60 Normal >60 [facility] Comment on above: Performed By: #### B ROSSI, CDP #### [facility] [place] [address] [employer]: Rui Strauss DO Glucose [Mass/Vol] 95 mg/dL Normal 70-99 [facility] Comment on above: Performed By: #### B ROSSI, CDP #### [facility] [place] [address] [employer]: Rui Strauss DO Potassium [Moles/Vol] 4.1 mmol/L Normal 3.7-5.3 [facility] Comment on above: Performed By: #### B ROSSI, CDP #### [facility] [address] [place] [address] [employer]: Rui Strauss DO Sodium [Moles/Vol] 140 mmol/L Normal 135-144 [facility] Comment on above: Performed By: #### B ROSSI, CDP #### [facility] [address] [facility] [place] [address] [employer]: Rui Strauss DO Urea nitrogen [Mass/Vol] 16 mg/dL Normal 8-23 [facility] Comment on above: Performed By: #### B ROSSI, CDP #### [facility] [address] [facility] [place] [address] [employer]: Rui Strauss DO BUN/CRE Ratio NOT REPORTED Normal 9-20 [facility] Comment on above: Performed By: #### B ROSSI, CDP #### [facility] [address] [facility] [place] [address] [employer]: Rui Strauss DO Staging: NOT REPORTED Normal [facility] Comment on above: Performed By: #### B ROSSI, CDP #### [facility] [address] [facility] [place] [address] [employer]: Rui Strauss DO CBC Auto DifferentialOrdered By: Taz Gan on 02-15-2021 Absolute Eos # 0.10 [employer] Phone: Absolute Immature Granulocyte NOT REPORTED [employer] Phone: Absolute Lymph # 1.90 [employer] Phone: Absolute Kerr # 0.60 [employer] Phone: Basophils (Bld) [#/Vol] 0.00 10*3/uL [employer] Phone: Basophils/100 WBC (Bld) 0 % 0 - 2 % [employer] Phone: Differential Type NOT REPORTED [employer] Phone: Eosinophils/100 WBC (Bld) 1 % 0 - 4 % [employer] Phone: Hematocrit (Bld) [Volume fraction] 37.1 % 36 - 46 % [employer] Phone: Hemoglobin.gastrointest inal spec 1 Ql (Stl) 12.6 g/dL 12.0 - 16.0 g/dL [employer] Phone: Immature Granulocytes NOT REPORTED 0 % [employer] Phone: Interpretation and review of laboratory results Abnormal [employer] Phone: Lymphocytes/100 WBC (Bld) 28 % 24 - 44 % [employer] Phone: MCH (RBC) [Entitic mass] 36.5 pg High 26 - 34 pg [employer] Phone: MCHC (RBC) [Mass/Vol] 34.0 g/dL 31 - 37 g/dL [employer] Phone: MCV (RBC) [Entitic vol] 107.3 fL High 80 - 100 fL [employer] Phone: Monocytes/100 WBC (Bld) 8 % High 1 - 7 % [employer] Phone: NRBC Automated NOT REPORTED per 100 WBC [employer] Phone: Platelet distribution width (Bld) [Ratio] 15.9 % High 11.5 - 14.9 % [employer] Phone: Platelet Estimate NOT REPORTED [employer] Phone: Platelet mean volume (Bld) [Entitic vol] 6.5 fL 6.0 - 12.0 fL [employer] Phone: Platelets (Bld) [#/Vol] 292 10*3/uL [employer] Phone: RBC (Bld) [#/Vol] 3.46 10*6/uL Low 4.0 - 5.2 m/uL [employer] Phone: RBC (Bld) [#/Vol] NOT REPORTED [employer] Phone: Segmented neutrophils/100 WBC (Bld) 63 % 36 - 66 % [employer] Phone: Segs Absolute 4.20 [employer] Phone: WBC (Bld) [#/Vol] 6.7 10*3/uL [employer] Phone: WBC (Bld) [#/Vol] NOT REPORTED [employer] Phone: [employer] Phone: CBC with Diffon 02-15-2021 Abs. Basophil 0.00 k/uL Normal 0.0-0.2 [facility] Comment on above: Performed By: #### B ROSSI, CDP #### [facility] [address] [place] [address] [employer]: Rui Strauss DO Abs.Neutrophil (Seg) 4.20 k/uL Normal 1.3-9.1 [facility] Comment on above: Performed By: #### B ROSSI, CDP #### [facility] [address] [place] [address] [employer]: Rui Strauss DO Basophils/100 WBC (Bld) 0 % Normal 0-2 M [facility] Comment on above: Performed By: #### B ROSSI, CDP #### [facility] [address] [place] [address] [employer]: Rui Strauss DO Eosinophils (Bld) [#/Vol] 0.10 10*3/uL Normal 0.0-0.4 [facility] Comment on above: Performed By: #### Lazaro RICHEY, CDP #### [facility] [address] [place] [address] [employer]: Rui Strauss DO Eosinophils/100 WBC (Bld) 1 % Normal 0-4 [facility] Comment on above: Performed By: #### B ROSSI, CDP #### [facility] [address] [place] [address] [employer]: Rui Strauss DO Erythrocyte distribution width (RBC) [Ratio] 15.9 % High 11.5-14.9 [facility] Comment on above: Performed By: #### Lazaro RICHEY, CDP #### [facility] [place] [address] [employer]: Rui Strauss DO Hematocrit (Bld) [Volume fraction] 37.1 % Normal 36-46 [facility] Comment on above: Performed By: #### Lazaro RICHEY, CDP #### [facility] [place] [address] [employer]: Rui Strauss DO Hemoglobin (Bld) [Mass/Vol] 12.6 g/dL Normal 12.0-16.0 [facility] Comment on above: Performed By: #### Lazaro RICHEY, CDP #### [facility] [place] [address] [employer]: Rui Strauss DO Lymphocytes (Bld) [#/Vol] 1.90 10*3/uL Normal 1.0-4.8 [facility] Comment on above: Performed By: #### B ROSSI, CDP #### [facility] [place] [address] [employer]: Rui Strauss DO Lymphocytes/100 WBC (Bld) 28 % Normal 24-44 [facility] Comment on above: Performed By: #### B ROSSI, CDP #### [facility] [place] [address] [employer]: Rui Strauss DO MCH (RBC) [Entitic mass] 36.5 pg High 26-34 [facility] Comment on above: Performed By: #### B ROSSI, CDP #### [facility] [place] [address] [employer]: Rui Strauss DO MCHC (RBC) [Mass/Vol] 34.0 g/dL Normal 31-37 [facility] Comment on above: Performed By: #### Lazaro RICHEY, CDP #### [facility] [address] [place] [address] [employer]: Rui Strauss DO MCV (RBC) [Entitic vol] 107.3 fL High 80-100 M [facility] Comment on above: Performed By: #### Lazaro RICHEY, CDP #### [facility] [address] [place] [address] [employer]: Rui Strauss DO Monocytes (Bld) [#/Vol] 0.60 10*3/uL Normal 0.1-1.3 [facility] Comment on above: Performed By: #### B ROSSI, CDP #### [facility] [place] [address] [employer]: Rui Strauss DO Monocytes/100 WBC (Bld) 8 % High 1-7 M [facility] Comment on above: Performed By: #### B ROSSI, CDP #### [facility] [address] [place] [address] [employer]: Rui Strauss DO Neutrophil (Seg) 63 % Normal 36-66 [facility] Comment on above: Performed By: #### Lazaro RICHEY, CDP #### [facility] [address] [place], [place] [address] [place] [address] [employer]: Rui Strauss DO Platelet mean volume (Bld) [Entitic vol] 6.5 fL Normal 6.0-12.0 [facility] Comment on above: Performed By: #### Lazaro RICHEY, CDP #### [facility] [address] [place] [address] [employer]: Rui Strauss DO Platelets (Bld) [#/Vol] 292 10*3/uL Normal 150-450 [facility] Comment on above: Performed By: #### Lazaro RICHEY, CDP #### [facility] [address] [place] [address] [employer]: Rui Strauss DO RBC (Bld) [#/Vol] 3.46 10*6/uL Low 4.0-5.2 [facility] Comment on above: Performed By: #### Lazaro RICHEY, CDP #### [facility] [address] [place] [address] [employer]: Riu Strauss DO WBC (Bld) [#/Vol] 6.7 10*3/uL Normal 3.5-11.0 [facility] Comment on above: Performed By: #### B ROSSI, CDP #### [facility] [address] [place] [address] [employer]: Rui Strauss DO Abs.Imm.Granulocyte NOT REPORTED Normal 0.00-0.30 [facility] Comment on above: Performed By: #### Lazaro RICHEY, CDP #### [facility] [address] [place] [address] [employer]: Rui Strauss DO Auto Diff Performed NOT REPORTED Normal [facility] Comment on above: Performed By: #### B MP, CDP #### [facility] [address] [place] [address] [employer]: Rui Strauss DO Immature Granulocyte NOT REPORTED Normal 0 Me [facility] Comment on above: Performed By: #### B MP, CDP #### [facility] [address] [place] [address] [employer]: Rui Strauss DO NRBC Automated NOT REPORTED Normal [facility] Comment on above: Performed By: #### B ROSSI, CDP #### [facility] [address] [place] [address] [employer]: Rui Strauss DO Platelet Estimate NOT REPORTED Normal [facility] Comment on above: Performed By: #### B ROSSI, CDP #### [facility] [address] [place] [address] [employer]: Rui Strauss DO RBC morphology finding Nom (Bld) NOT REPORTED Normal [facility] Comment on above: Performed By: #### B ROSSI, CDP #### [facility] [place] [address] [employer]: Rui Strauss DO WBC Morphology NOT REPORTED Normal [facility] Comment on above: Performed By: #### B ROSSI, CDP #### [facility] [place] [address] [employer]: Rui Strauss DO MRSA, DNA, Nasalon 1 Specimen Description .NASAL SWAB Normal [facility] Comment on above: Performed By: #### M RSANO #### [facility] [address] [place] [address] [employer]: Rui Strauss DO [facility] [address] [place] [address] [employer]: Brody Remy MD Microscopic UrinalysisOrdere d By: Taz Gan on 02-15-2021 - [employer] Work Phone: Amorphous, UA NOT REPORTED None [employer] Phone: Bacteria, UA FEW Abnormal None [employer] Phone: Casts UA NOT REPORTED /LPF [employer] Work Phone: Crystals, UA NOT REPORTED None /HPF [facility] Work Phone: Epithelial Cells UA 10 TO 20 /HPF [facility] Phone: Interpretation and review of laboratory results Abnormal [employer] Phone: Mucus, UA NOT REPORTED None [facility]: Other Observations UA NOT REPORTED NOT REQ. M [facility] [employer] Work Phone: RBC, UA 0 TO 2 /HPF [facility] [employer] Work Phone: Renal Epithelial, UA NOT REPORTED 0 /HPF [facility] [employer] Work Phone: Trichomonas, UA NOT REPORTED None [facility]: WBC, UA 5 TO 10 /HPF [facility] [employer] Work Phone: Yeast, UA NOT REPORTED None [facility]: [facility] [employer] Work Phone: UA w/Reflex [employer] 2020 Bilirubin, SemiQt,Ur Negative Normal NEG [facility] Comment on above: Performed By: #### U MICAO, UAX #### [facility] [address] [place] [address] [employer]: Rui Strauss DO Blood, Urine Negative Normal NEG [facility] Comment on above: Performed By: #### U MICAO, UAX #### [facility] [address] [facility] [place] [address] [employer]: Rui Strauss DO Clarity (U) CLEAR Normal CLEAR [facility] Comment on above: Performed By: #### U MICAO, UAX #### [facility] [address] [facility] [place] [address] [employer]: Rui Strauss DO Color (U) YELLOW Normal YEL [facility] Comment on above: Performed By: #### U MICAO, UAX #### [facility] [address] [facility] [place] [address] [employer]: Rui Strauss DO Glucose Ql (U) Negative Normal NEG [facility] Comment on above: Performed By: #### U MICAO, UAX #### [facility] [address] [facility] [place] [address] [employer]: Rui Strauss DO Ketones Ql (U) Negative Normal NEG [facility] Comment on above: Performed By: #### U MICAO, UAX #### [facility] [address] [facility] [place] [address] [employer]: Rui Strauss DO Leukocyte esterase Test strip Ql (U) SMALL Abnormal NEG [facility] Comment on above: Performed By: #### U MICAO, UAX #### [facility] [address] [facility] [place] [address] [employer]: Rui Strauss DO Nitrite,Ur Negative Normal NEG [facility] Comment on above: Performed By: #### U MICAO, UAX #### [facility] [address] [facility] [place] [address] [employer]: Rui Strauss DO PH,Ur 5.5 Normal 5.0-8.0 [facility] Comment on above: Performed By: #### U SABRAO, UAX #### [facility] [address] [facility] [place] [address] [employer]: Rui Strauss DO Protein Ql (U) Negative Normal NEG [facility] Comment on above: Performed By: #### U SABRAO, UAX #### [facility] [address] [place] [address] [employer]: Rui Strauss DO [address]. [address],Ur 1.022 Normal 1.000-1.030 [facility] Comment on above: Performed By: #### U SABRAO, UAX #### [facility] [address] [place] [address] [employer]: Rui Strauss DO Urobilinogen,Ur Normal Normal NORM [facility] Comment on above: Performed By: #### U JEMIMA, UAX #### [facility] [address] [place] [address] [employer]: Rui Strauss DO Comment NOT REPORTED Normal [facility] Comment on above: Performed By: #### U SABRAO, UAX #### [facility] [address] [place] [address] [employer]: Rui Strauss DO Urinalysis Reflex to Culture Ordered By: Taz Gan on 02-15-2021 Bilirubin Urine Negative NEGATIVE [employer] Phone: Color, UA YELLOW YELLOW [employer] Work Phone: Glucose, Ur Negative NEGATIVE [employer] Phone: Interpretation and review of laboratory results Abnormal [employer] Phone: Ketones Ql (U) Negative NEGATIVE [employer] Phone: Leukocyte esterase Test strip Ql (U) SMALL Abnormal NEGATIVE [employer] Phone: Nitrite, Urine Negative NEGATIVE [employer] Work Phone: pH, UA 5.5 [employer] Work Phone: Protein, UA Negative NEGATIVE [employer] Phone: Specific [address], UA 1.022 [employer] Work Phone: Turbidity UA CLEAR CLEAR [employer] Work Phone: Urinalysis Comments NOT REPORTED [facility] [employer] Work Phone: Urine Hgb Negative NEGATIVE [employer] Phone: Urobilinogen, Urine Normal Normal [facility]: [employer] Phone: Urinalysis,Microon 1 ----- Normal [facility] Comment on above: Performed By: #### AWAIS ALMAZANX #### [facility] [address] [place] [address] [employer]: Rui Strauss DO Bacteria FEW Abnormal NONE [facility] Comment on above: Performed By: #### AWAIS ALMAZANX #### [facility] [address] [place] [address] [employer]: Rui Strauss DO Epithelial cells LM Ql (Urine sed) 10 TO 20 Normal [facility] Comment on above: Performed By: #### AWAIS ALMAZANX #### [facility] [address] [place] [address] [employer]: Rui Strauss DO Urine RBC's 0 TO 2 Normal [facility] Comment on above: Performed By: #### AWAIS ALMAZANX #### [facility] [address] [facility] [place] [address] [employer]: Rui Strauss DO Urine WBC's 5 TO 10 Normal [facility] Comment on above: Performed By: #### U SABRAO, UAX #### [facility] [address] [facility] [place] [address] [employer]: Rui Strauss DO Amorphous sediment LM Ql (Urine sed) NOT REPORTED Normal NONE [facility] Comment on above: Performed By: #### U JEMIMA UAX #### [facility] [place] [address] [employer]: Rui Strauss DO Casts NOT REPORTED Normal [facility] Comment on above: Performed By: #### Tony ONOFRE UAX #### [facility] [place] [address] [employer]: Rui Strauss DO Crystals LM Nom (Urine sed) NOT REPORTED Normal NONE [facility] Comment on above: Performed By: #### U JEMIMA, UAX #### [facility] [address] [facility] [place] [address] [employer]: Rui Strauss DO Epithelial, Renal NOT REPORTED Normal 0 [facility] Comment on above: Performed By: #### U JEMIMA, UAX #### [facility] [address] [facility] [place] [address] [employer]: Rui Strauss DO Mucus Strands NOT REPORTED Normal NONE [facility] Comment on above: Performed By: #### U JEMIMA, UAX #### [facility] [address] [facility] [place] [address] [employer]: Rui Strauss DO Other Observations NOT REPORTED Normal NREQ [facility] Comment on above: Performed By: #### U MICAO, UAX #### [facility] [address] [facility] [place] [address] [employer]: Rui Strauss DO Trichomonas NOT REPORTED Normal NONE [facility] Comment on above: Performed By: #### U MICAO, UAX #### [facility] [address] [facility] [place] [address] [employer]: Rui Strauss DO Yeast NOT REPORTED Normal NONE [facility] Comment on above: Performed By: #### U MICAO, UAX #### [facility] [address] [facility] [place] [address] [employer]: Rui Strauss DO EKG 12 Leadon 05-21-2020 Atrial Rate 66 BPM [place] P [place] 54 degrees [place] P-R Interval 132 ms [place] Q-T Interval 420 ms [place] QRS Duration 100 ms [place] QTc Calculation (Bazett) 440 ms [place] R [place] -89 degrees [facility], [place] T [place] -20 degrees [place] Urea nitrogen [Mass/Vol] Normal sinus rhythm Left axis deviation Incomplete right bundle branch block ST & T wave abnormality, consider anterolateral ischemia Abnormal ECG No previous ECGs available [place] Ventricular Rate 66 BPM [place] Marlo, Mhpn Incoming Ekg Results From [employer] - 05/21/2020 9:08 AM EST Normal sinus rhythm Left axis deviation Incomplete right bundle branch block ST & T wave abnormality, consider anterolateral ischemia Abnormal ECG No previous ECGs available [place] MRSA DNA Probe, Nasalon - MRSA, DNA, Nasal NEGATIVE: MRSA DNA not detected by nucleic acid amplification. NEGATIVE: MRSA DNA not detected by nucleic acid amplificati [place] Comment on above: Results should be used as an adjunct to nosocomial control efforts to identify patients needing enhanced precautions. The test is not intended to identify patients with staphylococcal infections. Results should not be used to guide or monitor treatment for MRSA infections. Specimen Description .NASAL SWAB [place], [place] MRSA, DNA, Nasalon 0 MRSA, DNA, Nasal NEGATIVE: MRSA DNA not detected by nucleic acid amplification. Normal NMRSAA [facility] Comment on above: Result Comment: Results should be used as an adjunct to nosocomial control efforts to identify patients needing enhanced precautions. The test is not intended to identify patients with staphylococcal infections. Results should not be used to guide or monitor treatment for MRSA infections. Performed By: #### M RSANO #### [facility] [address] [place] [address] [employer]: Rui Strauss DO [facility] [address] [place] [address] [employer]: Brody Remy MD Basic Metabolic Panelon 11-0 Anion gap [Moles/Vol] 8 mmol/L Low 9 - 17 mmol/L [place] Bun/Cre Ratio NOT REPORTED [place] Calcium [Mass/Vol] 9.1 mg/dL 8.6 - 10. 4 mg/dL [place] Chloride [Moles/Vol] 102 mmol/L 98 - 10 7 mmol/L [place] CO2 [Moles/Vol] 28 mmol/L 20 - 31 mmol/L [place] Creatinine [Mass/Vol] 0.53 mg/dL 0.5 - 0.9 mg/dL [place] GFR >60 >60 mL/min [place] GFR Non- >60 >60 mL/min [place] GFR/1.73 sq M predicted among non-blacks MDRD (S/P/Bld) [Vol rate/Area] NOT REPORTED [place] GFR/1.73 sq M predicted among non-blacks MDRD (S/P/Bld) [Vol rate/Area] [place] Comment on above: Average GFR for 70 o r more years old: 75 mL/min/1.73sq m Chronic Kidney Disease: <60 mL/min/1.73sq m Kidney failure: <15 mL/min/1.73sq m eGFR calculated using average adult body mass. Additional eGFR calculator available at: http://www.Selvz/multiple_crcl_2012.htm Glucose [Mass/Vol] 116 mg/dL High 70 - 99 mg/dL [place] Interpretation and review of laboratory results Abnormal [place] Potassium [Moles/Vol] 4.3 mmol/L 3.7 - 5.3 mmol/L [place] Sodium [Moles/Vol] 138 mmol/L 135 - 144 mmol/L [place] Urea nitrogen [Mass/Vol] 12 mg/dL 8 - 23 mg/dL [place] Basic Metabolic Profon 05-19 (cont.) Normal [facility] Comment on above: Result Comment: Aver age GFR for 70 or more years old: 75 mL/min/1.73sq m Chronic Kidney Disease: <60 mL/min/1.73sq m Kidney failure: <15 mL/min/1.73sq m eGFR calculated using average adult body mass. Additional eGFR calculator available at: http://www.Selvz/multiple_crcl_2012.htm Performed By: #### C CHARLY, BMP #### [facility] [address] [place] [address] [employer]: Rui Strauss DO Anion gap [Moles/Vol] 8 mmol/L Low 9-17 [facility] Comment on above: Performed By: #### C CHARLY, BMP #### [facility] [place] [address] [employer]: Rui Strauss DO Calcium [Mass/Vol] 9.1 mg/dL Normal 8.6-10.4 [facility] Comment on above: Performed By: #### C CHARLY, BMP #### [facility] [place] [address] [employer]: Fanelly, Rui, DO Chloride [Moles/Vol] 102 mmol/L Normal 98-107 [facility] Comment on above: Performed By: #### C DP, BMP #### [facility] [address] [place] [address] [employer]: Rui Strauss, DO CO2 [Moles/Vol] 28 mmol/L Normal 20-31 [facility] Comment on above: Performed By: #### C DP, BMP #### [facility] [place] [address] [employer]: Rui Strauss, DO Creatinine [Mass/Vol] 0.53 mg/dL Normal 0.50-0.90 [facility] Comment on above: Performed By: #### C DP, BMP #### [facility] [address] [place] [address] [employer]: Rui Strauss, DO GFR, Amer >60 Normal >60 [facility] Comment on above: Performed By: #### C DP, BMP #### [facility] [place] [address] [employer]: Rui Strauss DO GFR,non Amer >60 Normal >60 [facility] Comment on above: Performed By: #### C DP, BMP #### [facility] [address] [place] [address] [employer]: Rui Strauss DO Glucose [Mass/Vol] 116 mg/dL High 70-99 [facility] Comment on above: Performed By: #### C DP, BMP #### [facility] [address] [place] [address] [employer]: Rui Strauss DO Potassium [Moles/Vol] 4.3 mmol/L Normal 3.7-5.3 [facility] Comment on above: Performed By: #### C DP, BMP #### [facility] [address] [facility] [place] [address] [employer]: Rui Strauss DO Sodium [Moles/Vol] 138 mmol/L Normal 135-144 [facility] Comment on above: Performed By: #### C DP, BMP #### [facility] [address] [facility] [place] [address] [employer]: Rui Strauss DO Urea nitrogen [Mass/Vol] 12 mg/dL Normal 8-23 [facility] Comment on above: Performed By: #### C DP, BMP #### [facility] [address] [facility] [place] [address] [employer]: Rui Strauss DO BUN/CRE Ratio NOT REPORTED Normal 9-20 [facility] Comment on above: Performed By: #### C DP, BMP #### [facility] [address] [facility] [place] [address] [employer]: Rui Strauss DO Staging: NOT REPORTED Normal [facility] Comment on above: Performed By: #### C DP, BMP #### [facility] [address] [facility] [place] [address] [employer]: Rui Strauss DO CBC Auto Differentialon 11-0 Basophils (Bld) [#/Vol] 0.00 10*3/uL [place] Basophils/100 WBC (Bld) 1 % 0 - 2 % [place] Differential Type NOT REPORTED [place] Eosinophils (Bld) [#/Vol] 0.10 10*3/uL [place] Eosinophils/100 WBC (Bld) 2 % 0 - 4 % [place] Erythrocyte distribution width (RBC) [Ratio] 15.8 % High 11.5 - 14.9 % [place] Hematocrit (Bld) [Volume fraction] 41.2 % 36 - 46 % [place] Hemoglobin (Bld) [Mass/Vol] 14.0 g/dL 12 - 16 g/dL [place] Interpretation and review of laboratory results Abnormal [place] Lymphocytes (Bld) [#/Vol] 1.90 10*3/uL [place] Lymphocytes/100 WBC (Bld) 26 % 24 - 44 % [place] MCH (RBC) [Entitic mass] 32.8 pg 26 - 34 pg [place] MCHC (RBC) [Mass/Vol] 34.0 g/dL 31 - 37 g/dL [place] MCV (RBC) [Entitic vol] 96.3 fL 80 - 100 fL [place] Monocytes (Bld) [#/Vol] 0.80 10*3/uL [place] Monocytes/100 WBC (Bld) 10 % High 1 - 7 % [place] Platelet mean volume (Bld) [Entitic vol] 6.5 fL 6 - 12 fL [place] Platelets (Bld) [#/Vol] NOT REPORTED [place] Platelets (Bld) [#/Vol] 299 10*3/uL [place] RBC (Bld) [#/Vol] 4.28 10*6/uL 4 - 5.2 m/uL [place] RBC morphology finding Nom (Bld) NOT REPORTED [place] Segmented neutrophils/100 WBC (Bld) 61 % 36 - 66 % [place] Segs Absolute 4.50 [place] WBC (Bld) [#/Vol] 7.3 10*3/uL [place] WBC (Bld) [#/Vol] NOT REPORTED per 100 WBC [place] WBC Morphology NOT REPORTED [place] CBC with Diffon 05-19-2020 Abs. Basophil 0.00 k/uL Normal 0.0-0.2 [facility] Comment on above: Performed By: #### C DP, BMP #### [facility] [address] [place] [address] [employer]: Rui Strauss DO Abs.Neutrophil (Seg) 4.50 k/uL Normal 1.3-9.1 [facility] Comment on above: Performed By: #### C DP, BMP #### [facility] [address] [place] [address] [employer]: Rui Strauss DO Basophils/100 WBC (Bld) 1 % Normal 0-2 [facility] Comment on above: Performed By: #### C DP, BMP #### [facility] [place] [address] [employer]: Rui Strauss DO Eosinophils (Bld) [#/Vol] 0.10 10*3/uL Normal 0.0-0.4 [facility] Comment on above: Performed By: #### C DP, BMP #### [facility] [place] [address] [employer]: Rui Strauss DO Eosinophils/100 WBC (Bld) 2 % Normal 0-4 [facility] Comment on above: Performed By: #### C DP, BMP #### [facility] [place] [address] [employer]: Rui Strauss DO Erythrocyte distribution width (RBC) [Ratio] 15.8 % High 11.5-14.9 [facility] Comment on above: Performed By: #### C DP, BMP #### [facility] [place] [address] [employer]: Rui Strauss DO Hematocrit (Bld) [Volume fraction] 41.2 % Normal 36-46 [facility] Comment on above: Performed By: #### C DP, BMP #### [facility] [place] [address] [employer]: Rui Strauss DO Hemoglobin (Bld) [Mass/Vol] 14.0 g/dL Normal 12.0-16.0 [facility] Comment on above: Performed By: #### C DP, BMP #### [facility] [place] [address] [employer]: Rui Strauss DO Lymphocytes (Bld) [#/Vol] 1.90 10*3/uL Normal 1.0-4.8 [facility] Comment on above: Performed By: #### C DP, BMP #### [facility] [address] [place] [address] [employer]: Rui Strauss DO Lymphocytes/100 WBC (Bld) 26 % Normal 24-44 [facility] Comment on above: Performed By: #### C CHARLY, BMP #### [facility] [address] [place] [address] [employer]: Rui Strauss DO MCH (RBC) [Entitic mass] 32.8 pg Normal 26-34 [facility] Comment on above: Performed By: #### C DP, BMP #### [facility] [address] [place] [address] [employer]: Rui Strauss DO MCHC (RBC) [Mass/Vol] 34.0 g/dL Normal 31-37 [facility] Comment on above: Performed By: #### C DP, BMP #### [facility] [address] [place] [address] [employer]: Rui Strauss DO MCV (RBC) [Entitic vol] 96.3 fL Normal 80-100 M [facility] Comment on above: Performed By: #### C DP, BMP #### [facility] [address] [place] [address] [employer]: Rui Strauss DO Monocytes (Bld) [#/Vol] 0.80 10*3/uL Normal 0.1-1.3 [facility] Comment on above: Performed By: #### C DP, BMP #### [facility] [address] [place] [address] [employer]: Rui Strauss DO Monocytes/100 WBC (Bld) 10 % High 1-7 [facility] Comment on above: Performed By: #### C DP, BMP #### [facility] [address] [place] [address] [employer]: Rui Strauss DO Neutrophil (Seg) 61 % Normal 36-66 [facility] Comment on above: Performed By: #### C DP, BMP #### [facility] [facility] [place] [address] [employer]: Rui Strauss DO Platelet mean volume (Bld) [Entitic vol] 6.5 fL Normal 6.0-12.0 [facility] Comment on above: Performed By: #### C DP, BMP #### [facility] [place] [address] [employer]: Rui Strauss DO Platelets (Bld) [#/Vol] 299 10*3/uL Normal 150-450 [facility] Comment on above: Performed By: #### C DP, BMP #### [facility] [address] [facility] [place] [address] [employer]: Rui Strauss DO RBC (Bld) [#/Vol] 4.28 10*6/uL Normal 4.0-5.2 [facility] Comment on above: Performed By: #### C DP, BMP #### [facility] [address] [place] [address] [employer]: Rui Strauss DO WBC (Bld) [#/Vol] 7.3 10*3/uL Normal 3.5-11.0 [facility] Comment on above: Performed By: #### C DP, BMP #### [facility] [address] [place] [address] [employer]: Rui Strauss DO Abs.Imm.Granulocyte NOT REPORTED Normal 0.00-0.30 [facility] Comment on above: Performed By: #### C DP, BMP #### [facility] [address] [place] [address] [employer]: Rui Strauss DO Auto Diff Performed NOT REPORTED Normal [facility] Comment on above: Performed By: #### C DP, BMP #### [facility] [address] [place] [address] [employer]: Rui Strauss DO Immature Granulocyte NOT REPORTED Normal 0 [facility] Comment on above: Performed By: #### C DP, BMP #### [facility] [address] [place] [address] [employer]: Rui Strauss DO NRBC Automated NOT REPORTED Normal [facility] Comment on above: Performed By: #### C DP, BMP #### [facility] [address] [place] [address] [employer]: Rui Strauss DO Platelet Estimate NOT REPORTED Normal [facility] Comment on above: Performed By: #### C DP, BMP #### [facility] [address] [place] [address] [employer]: Rui Strauss DO RBC morphology finding Nom (Bld) NOT REPORTED Normal [facility] Comment on above: Performed By: #### C DP, BMP #### [facility] [address] [place] [address] [place] [address] [employer]: Rui Strauss DO WBC Morphology NOT REPORTED Normal [facility] Comment on above: Performed By: #### C DP, BMP #### [facility] [address] [place] [address] [employer]: Rui Strauss DO MRSA, DNA, Nasalon 0 Specimen Description .NASAL SWAB Normal [facility] Comment on above: Performed By: #### M RSANO #### [facility] [address] [place] [address] [employer]: Rui Strauss DO [address] [address] [employer]: Brody Remy MD Microscopic Urinalysison Amorphous, UA NOT REPORTED None [place] Bacteria, UA FEW Abnormal None [facility], [place] Casts UA NOT REPORTED /LPF [place] Crystals, UA NOT REPORTED None /HPF [place] Epithelial Cells UA 2 TO 5 /HPF [place] Interpretation and review of laboratory results Abnormal [place] Mucus, UA NOT REPORTED None [place] Other Observations UA NOT REPORTED NOT REQ. M [facility], [place] RBC (U) [#/Vol] 0 TO 2 /HPF [place] Renal Epithelial, UA NOT REPORTED 0 /HPF [facility], [place] Trichomonas, UA NOT REPORTED None [place] WBC, UA 2 TO 5 /HPF [place] Yeast, UA NOT REPORTED None [place] - [facility], [place] Otheron 05-19-2020 Immature granulocytes (Bld) [#/Vol] NOT REPORTED [place] UA w/Reflex Cultureon 2019 Acetoacetic Acid,Ur Negative Normal NEG [facility] Comment on above: Performed By: #### U AX, UMICAO #### [facility] [address] [place] [address] [employer]: Rui Strauss DO Bilirubin, SemiQt,Ur Negative Normal NEG [facility] Comment on above: Performed By: #### U AX UMYAMILKAO #### [facility] [address] [place] [address] [employer]: Rui Strauss DO Color (U) YELLOW Normal YEL [facility] Comment on above: Performed By: #### U AXMICKIO #### [facility] [address] [place] [address] [employer]: Rui Strauss DO Glucose Ql (U) Negative Normal NEG [facility] Comment on above: Performed By: #### MICKI ACO #### [facility] [address] [place] [address] [employer]: Rui Strauss DO Hemoglobin, Ur Negative Normal NEG [facility] Comment on above: Performed By: #### U AXMICKIO #### [facility] [address] [place] [address] [employer]: Rui Strauss DO Leukocyte esterase Test strip Ql (U) TRACE Abnormal NEG [facility] Comment on above: Performed By: #### U AX UMICAO #### [facility] [address] [place] [address] [employer]: Rui Strauss DO Nitrite,Ur Negative Normal NEG [facility] Comment on above: Performed By: #### U AX UMICAO #### [facility] [address] [place] [address] [employer]: Rui Strauss DO PH,Ur 6.5 Normal 5.0-8.0 [facility] Comment on above: Performed By: #### U AXKIRSTEN #### [facility] [address] [place] [address] [employer]ving: Rui Strauss DO Protein Ql (U) Negative Normal NEG [facility] Comment on above: Performed By: #### KIRSTEN AC #### [facility] [place] [address] [employer] Photoengraving: uRi Strauss DO Spec. [address],Ur 1.011 Normal 1.000-1.030 [facility] Comment on above: Performed By: #### KIRSTEN AC #### [facility] [address] [place] [address] [employer]: Rui Strauss DO Turbidity CLEAR Normal CLEAR [facility] Comment on above: Performed By: #### KIRSTEN AC #### [facility] [address] [place] [address] [employer]: Rui Strauss DO Urobilinogen,Ur Normal Normal NORM [facility] Comment on above: Performed By: #### KIRSTEN AC #### [facility] [address] [place] [address] [employer]: Rui Strauss DO Comment NOT REPORTED Normal [facility] Comment on above: Performed By: #### U KIRSTEN PAIGE #### [facility] [address] [place] [address] [employer]ving: Rui Strauss DO Urinalysis Reflex to Culture on 05-19-2020 Bilirubin Urine Negative NEGATIVE [facility] [place] Color, UA YELLOW YELLOW [facility] [place] Glucose, Ur Negative NEGATIVE [facility] Interpretation and review of laboratory results Abnormal [facility] [place] Ketones Ql (U) Negative NEGATIVE [facility] [place] Leukocyte esterase Test strip Ql (U) TRACE Abnormal NEGATIVE [facility], [place] Nitrite, Urine Negative NEGATIVE [facility], [place] pH, UA 6.5 [place] Protein (U) [Mass/Vol] Negative NEGATIVE [facility], [place] Specific [address], UA 1.011 [place] Turbidity UA CLEAR CLEAR [place] Urinalysis Comments NOT REPORTED [place] Urine Hgb Negative NEGATIVE [place] Urobilinogen, Urine Normal Normal [place] Urinalysis,Microon 0 ----- Normal [facility] Comment on above: Performed By: #### KIRSTEN AC #### [facility] [address] [place] [address] [employer]: Rui Strauss DO Bacteria FEW Abnormal NONE [facility] Comment on above: Performed By: #### KIRSTEN AC #### [facility] [address] [place] [address] [employer]: Rui Strauss DO Epithelial cells LM Ql (Urine sed) 2 TO 5 Normal [facility] Comment on above: Performed By: #### KIRSTEN AC #### [facility] [address] [place] [address] [employer]: Rui Strauss DO Urine RBC's 0 TO 2 Normal [facility] Comment on above: Performed By: #### KIRSTEN AC #### [facility] [address] [place] [address] [employer]: Rui Strauss DO Urine WBC's 2 TO 5 Normal [facility] Comment on above: Performed By: #### KIRSTEN AC #### [facility] [address] [place] [address] [employer]: Rui Strauss DO Amorphous sediment LM Ql (Urine sed) NOT REPORTED Normal NONE [facility] Comment on above: Performed By: #### U AX, UMICAO #### [facility] [address] [facility] [place] [address] [employer]ving: Rui Strauss DO Casts NOT REPORTED Normal [facility] Comment on above: Performed By: #### U AX, UMICAO #### [facility] [address] [facility] [place] [address] [employer]ving: Rui Strauss DO Crystals LM Nom (Urine sed) NOT REPORTED Normal NONE [facility] Comment on above: Performed By: #### U AX, UMICAO #### [facility] [address] [facility] [place] [address] [employer]ving: Rui Strauss DO Epithelial, Renal NOT REPORTED Normal 0 [facility] Comment on above: Performed By: #### U AX, UMICAO #### [facility] [address] [facility] [place] [address] [employer]ving: Rui Strauss DO Mucus Strands NOT REPORTED Normal NONE [facility] Comment on above: Performed By: #### U AX, UMICAO #### [facility] [address] [facility] [place] [address] [employer] Photoeng[employer]ving: Rui Strauss DO Other Observations NOT REPORTED Normal NREQ [facility] Comment on above: Performed By: #### U AX, UMICAO #### [facility] [address] [facility] [place] [address] [employer]ving: Rui Strauss DO Trichomonas NOT REPORTED Normal NONE [facility] Comment on above: Performed By: #### U AX, UMICAO #### [facility] [address] [facility] [place] [address] [employer]ving: Rui Strauss DO Yeast NOT REPORTED Normal NONE [facility] Comment on above: Performed By: #### KIRSTEN AC #### [facility] [address] [place] [address] [employer]: Rui Strauss DO Vital Signs Date Time Vital Sign Value Performing Clinician Gabriele pena 02-15-2021 11:50-0400 Body height 152.4 cm [facility] [employer] Phone: 02-15-2021 11:50-0400 Body mass index (BMI) [Ratio] 31.25 kg/m2 [facility] [employer] Phone: 02-15-2021 11:50-0400 Body temperature 98.01 [degF] [facility] [employer] Phone: 02-15-2021 11:50-0400 Body weight 72.58 kg [facility] [employer] Phone: 02-15-2021 11:50-0400 Diastolic blood pressure 61 mm[Hg] [facility] [employer] Phone: 02-15-2021 11:50-0400 Heart rate 66 /min [facility] [employer] Phone: 02-15-2021 11:50-0400 Respiratory rate 18 /min [facility] [employer] Phone: 02-15-2021 11:50-0400 SaO2% (BldA) [Mass fraction] 100 % [facility] [employer] Phone: 02-15-2021 11:50-0400 Systolic blood pressure 132 mm[Hg] [facility] [employer] Phone: 05-19-2020 13:09-0500 BMI (Body Mass Index) 33.59 kg/m2 [facility], [place] 05-19-2020 13:09-0500 Body Temperature 98.8 [degF] [facility] 1 [facility], [place] 05-19-2020 13:09-0500 Body weight 78.02 kg [facility] 1 [facility] , [place] 05-19-2020 13:09-0500 BP Diastolic 69 mm[Hg] [facility] 1 [facility] , [place] 05-19-2020 13:090500 BP Systolic 139 mm[Hg] [facility] 1 [facility] , [place] 05-19-2020 13:090500 Height 152.4 cm [facility] 1 [facility] , [place] 05-19-2020 13:09-0500 Pulse (Heart Rate) 70 /min [facility] 1 [facility], [place] 05-19-2020 13:090500 Pulse Oximetry 95 % [facility] 1 [facility] , [place] 05-19-2020 13:09-0500 Respiratory Rate 20 /min [facility] 1 [facility], [place] Encounters Encounter Date Encounter Type Care Provider [...] Start: 02-15-2021 End: 02-20-2021 ambulatory CHANEL FUENTES [facility] Start: 02-15-2021 End: 02-19-2021 Subsequent hospital visit by physician Navjot Tello Rm 1 [facility] Pre-Admit Testing Start: 05-19-2020 End: 05-24-2020 ambulatory CHANEL FUENTES [facility] Start: 05-19-2020 End: 05-23-2020 Subsequent hospital [...] Author Start: 02-15-2022 [facility]inine [facility]: Start: 02-15-2022 Potassium monitoring Potassium monit [facility] [employer] Work Phone: Start: 05-19-2021 Creatinine measurement Creatinine mo [place] Start: 05-19-2021 Potassium monitoring Potassium monit [place] Start: 03-16-2021 Influenza vaccination Flu vaccine (# 1) [employer] Phone: Start: 03-16-2021 End: 03-16-2021 Patient encounter procedure 03/16/2021 Office Visit Orthopedic Surgery Chanel Fuentes MD [address] [address] [phone] [facility] Start: 03-01-2021 End: 03-01-2021 Admission to same day surgery center 03/01/2021 Surgery IP Unit Chanel Fuentes MD [address] [address] [phone] KNEE TOTAL ARTHROPLASTY [facility] Comment on above: KNEE TOTAL ARTHROPLA STY Start: 03-01-2021 Subsequent hospital visit by physician 03/01/2021 Hospital Encounter IP Unit Chanel Fuentes MD [address] [id number] [facility] Start: 06-16-2020 End: 06-16-2020 Office Visit 06/16/2020 Office Visit Orthopedic Surgery Chanel Fuentes MD [address] [address] [phone] [facility] Start: 06-01-2020 End: 06-01-2020 Hospital Encounter [facility] Comment on above: KNEE TOTAL ARTHROPLA [facility] Start: 05-28-2020 End: 05-28-2020 Appointment 05/28/2020 Appointment Pre-Admission Testing [facility] PRE-ADMIT TESTING Start: 03-29-2020 Annual Wellness Visi t (AWV) Annual Wellness Visit (AWV) [place] Start: 03-16-2020 Influenza vaccination Flu vaccine (# 1) [place] Start: 11-18-1998 Screening for osteoporosis DEXA (modify frequency per FRAX score) [place] Start: 11-18-1993 Shingles Vaccine (1 of 2) Shingles Vaccine (1 of 2) [place] Start: 11-18-1962 DTaP/Tdap/Td vaccine (1 - Tdap) DTaP/Tdap/Td vaccine (1 - Tdap) [place] Start: 11-18-1953 Lipid panel Lipid screen [place], [place] Start: 1945 Hepatitis C screening Hepatitis C sc reen [facility] Work Phone: Immunizations Immunization Date Immunization Notes Care Provider Fa anjum 05-13-2004 influenza virus vacc ine, unspecified formulation [facility] [place] Payers Date Payer Category Payer Medicare [id number] 1959 Private Health Insurance CLI [id number] 1959 Self-pay [id number] 1943 Unknown [id number] 2.16.8 [id number] 1943 Unknown [id number] 2.16.8 [id number] 1943 Unknown [id number] 2.16.84 [id number] 1943 Unknown [id number] 2.16.84 [id number] 1943 Unknown [id number] 2.16.84 [id number] 1943 Unknown [id number] 2.16.84 [id number] 1943 Unknown [id number] 2.16.84 [id number] 1943 Unknown [id number] 2.16.84 [id number] 1943 Unknown [id number] 2.16.84 [id number] 1943 Unknown [id number] 2.16.84 [id number] 1943 Unknown [id number] 2.16.84 [id number] 1943 Unknown [id number] 2.16.84 [id number] Social History Date Type Detail Facility Start: 05-19-2020 End: 02-15-2021 Tobacco smoking status NHIS Never smoker [place] Start: 05-19-2020 End: 02-15-2021 Tobacco use and exposure Never used [place] Start: 05-19-2020 End: 02-15-2021 Alcohol intake Lifetime non-drinker (finding) [place] Start: 05-19-2020 History SDOH Alcohol Frequency 1 [place] Start: 1945 Sex Assigned At Not on file [place] Exposure to SARS-CoV -2 (event) Not sure [place] Hospital Discharge instructions 02-15-2021 Instructions Note [...] powder, deodorant, jewelry, piercings, perfume, makeup, nail georgian, hair accessories, or hair spray on the [...] hospital. The Day of Surgery: Arrive at [facility] Surgery Entrance at the time directed by your surgeon and check in at the desk. If you have a living will or healthcare power of flash ranging crewmember, please bring a copy. You will be taken to the pre-op holding area where you will be prepared for surgery. A physical assessment will be performed by a nurse practitioner or warehouse helper. Your IV will be started and you [...] in recovery room. documented in this encounter [employer] Phone: History of Present illness Narrative 02-15-2021 Renetta Vieyra RN - 02/15/2021 11:30 AM EDT Note Date & Type Note Facility 02-15-2021 History of Present illness Narrative Dr. Gan, anesthesia, was contacted and informed of the patient's planned surgery, history, and unconfirmed abnormal EKG results from EKG done today in [facility]. Also reviewed stress test and echo from 05/2020 from [facility]. Medical clearance required. Surgery scheduling will notify Dr. Fuentes's office who will be responsible for making sure the clearance is obtained and is in the chart for surgery. documented in this encounter [employer] Phone: Discharge Instructions * Instructions* Amelia Renee [...] powder, deodorant, jewelry, piercings, perfume, makeup, nail georgian, hair accessories, or hair spray on the day of surgery. Wear loose comfortable clothing. 4. Leave your valuables at home. Bring a storage case for any glasses/contacts. The Day of Surgery: Arrive at [facility] at the time directed by your surgeon and check in at the desk. If you have a living will or healthcare power of flash ranging crewmember, please bring a copy. You will be taken to the pre-op holding area where you will be prepared for surgery. A physical assessment will be performed by a nurse practitioner or warehouse helper. Your IV will be started and you [...] EKG results from EKG done today in [facility]. Medical clearance required. Surgery scheduling will notify Dr. Fuentes's office who will be responsible for making sure the clearance is obtained and is in the chart for surgery. documented in this encounter Advance Directives No Advanced Directives Records FoundDocuments on File Type Date Recorded Patient Voice Intercept Technician Expl anation ACP-Advance Directive ACP-Power of Underwriting Support Manager Summary Purpose Family History No Family History Records FoundNo Family History Records Found Additional Source Comments INFORMATION SOURCE (unrecogn ized section and content) DATE CREATED AUTHOR 02/20/2021 [facility] DATE CREATED AUTHOR AUTHOR'S LEO VELASQUEZ [...] BE BASED ON THE PRIMARY CLINICAL RECORDS. [employer] [facility]. provides no warranty or guarantee of the accuracy or completeness of information in this document.
--- NOTE | 2024-04-14 08:31 | CT_ITS ---
The [address] [address] Patient Name: JERRY FINNEY MRN: [id number] date: 1945 Sex: F Assigned Patient Location: ED.MAIN Current Patient Location: [place] Accession/Order Number: [id number] Exam Date: 04/14/2024 08:45 Report Date: 04/14/2024 13:36 At the request of: MARISEL LEGER Procedure: CT hip RT wo con EXAMINATION: CT hip RT wo con HISTORY: Right Hip Fracture COMPARISON: XR right hip and femur 04/14/2024, XR pelvis 03/25/2024 TECHNIQUE: Multi-planar CT images were created without and/or with IV contrast according to examination type. Dose reduction techniques were achieved by using automated exposure control and/or adjustment of mA and/or kV according to patient size and/or use of iterative reconstruction technique. FINDINGS: BONES: Acute fracture at base of right femoral neck versus intertrochanteric. There is mildly fracture fragment involving superior tip of greater trochanter, however, no fracture extending into the lesser trochanter. Slight impaction of the neck into the trochanter and approximately 90 degrees angulation between the femoral neck and femoral shaft. Femoral head remains seated within the acetabulum. Moderate narrowing of the right hip joint space compatible with degenerative changes. No significant periarticular osteophytes. SOFT TISSUES: Anterior right pelvic wall hernia 8.1 cm in diameter by 3.0 cm anterior-posterior, containing colon. Wide neck into the hernia; no strangulation or obstruction. EFFUSION: Small joint effusion. Small hematoma surrounding the proximal femur/hip. OTHER: Negative. CT/CT hip RT wo con IMPRESSION: 1. Acute, angulated, slightly impacted fracture involving base of right femoral neck versus intertrochanteric fracture. 2. Femoral head remains within the acetabulum with only mild degenerative changes. Electronically authenticated by: SURYA MONTEMAYOR Date: 04/14/2024 13:36
== END 2024-04-14 08:01 | disposition home or self-care (01) ==
LOC: CT 08:01
PROVIDERS: PCP Family Medicine; Visit Provider Family Medicine
DX: M25.551 Pain in right hip (principal); S72.111A Displaced fracture of greater trochanter of right femur, initial encounter for closed fracture
CPT/HCPCS: 73700

== ENCOUNTER 2024-04-14 09:39 | Inpatient (IN) | payer MEDICARE, SELFPAY ==
[2024-04-14] VITALS (20 sets, daily range): BP systolic 109–184; BP diastolic 57–87; PULSE 72–103; TEMP 36.2–37.1; O2SAT 95–100; BMI 23.4; BMI 23.3
--- NOTE | 2024-04-14 | FL_ITS ---
The [address] [address] Patient Name: JERRY FINNEY MRN: [id number] date: 1945 Sex: F Assigned Patient Location: [place] Current Patient Location: [place] Accession/Order Number: [id number] Exam Date: 04/14/2024 16:30 Report Date: 04/15/2024 11:16 At the request of: ZAHRAA HERNANDEZ Procedure: FL fluoroscopy <1hr NON-READ EXAM: FL fluoroscopy <1hr NON-READ HISTORY: TECHNIQUE: FINDINGS: Please see Operative Report. Electronically authenticated by: RADIOLOGIST NO Date: 04/15/2024 11:16
--- NOTE | 2024-04-14 10:05 | XR_ITS ---
The [address] [address] Patient Name: JERRY FINNEY MRN: [id number] date: 1945 Sex: F Assigned Patient Location: ED.MAIN Current Patient Location: ED.MAIN Accession/Order Number: [id number] Exam Date: 04/14/2024 10:57 Report Date: 04/14/2024 11:28 At the request of: AMBIKA PANDA Procedure: XR hip RT min 2V PROCEDURE: XR hip RT min 2V HISTORY: Abnormal CT ; right hip pain COMPARISON: XR pelvis 03/25/2024 FINDINGS: BONES:Fracture of right femoral neck with slight lateral displacement and proximal retraction of the femur in relation to the neck and head, with now approximately 90 degrees angulation between the femoral shaft and femoral neck. Femoral head remains seated within the acetabulum. Suspect mildly/fracture involving the superior tip of the greater trochanter. SOFT TISSUES:No visible soft tissue swelling. EFFUSION:None visible. OTHER: Negative. XR/XR hip RT min 2V IMPRESSION: 1. Acute, displaced, and angulated right femoral neck fracture and suspected displaced fracture involving superior tip of greater trochanter. Electronically authenticated by: SURYA MONTEMAYOR Date: 04/14/2024 11:28
--- NOTE | 2024-04-14 10:06 | ED_ITS ---
HPI HPI - General Adult General Chief complaint: Extremity Injury, Lower Stated complaint: GENERAL WEAKNESS Time Seen by Provider: 04/14/24 09:53 Source: family Mode of arrival: Wheelchair Limitations: altered mental status History of Present Illness HPI narrative: 78-year-old female presents for possible right hip fracture. She had an outpatient CAT scan today that reportedly shows a fracture. She was sent here from there. She had been admitted to this hospital on March 25 and was here for a few days and then went to rehab facility where she has been for 2 weeks and has been getting physical therapy. Most of the history is obtained from the patient's daughter who accompanies her. Related Data Home Medications ?Medication ?Instructions ?Recorded ?Confirmed levothyroxine 112 mcg tablet 112 mcg PO .before breakfast 05/29/23 04/14/24 lisinopril 10 mg tablet 10 mg PO DAILY 05/29/23 04/14/24 simvastatin 40 mg tablet 40 mg PO DAILY 05/29/23 04/14/24 Previous Rx's ?Medication ?Instructions ?Recorded acetaminophen 325 mg tablet 650 mg (2 x 325 mg) PO Q4H PRN 03/29/24 Pain 1-4 #30 tabs calcitonin (salmon) 200 1 spray intranasal QD #3.7 mL 03/29/24 unit/actuation nasal spray calcium carbonate 600 mg PO TID #30 tabs 03/29/24 cetirizine 10 mg tablet 10 mg PO DAILY #30 tabs 03/29/24 docusate sodium 100 mg capsule 100 mg PO BID PRN Constipation #30 03/29/24 caps hydroxyzine pamoate 25 mg capsule 25 mg PO QID PRN Anxiety #30 caps 03/29/24 hyoscyamine sulfate 0.125 mg 0.125 mg sublingual QID PRN 03/29/24 sublingual tablet Cramping #30 tabs tramadol 50 mg tablet 50 mg PO Q8H PRN pain 2 days #6 03/29/24 tabs zinc oxide 40 % topical ointment 1 applic topical QID PRN 03/29/24 (Diaper Rash) Irritation #57 grams Allergies Allergy/AdvReac Type Severity Reaction Status Date / Time Iodinated Contrast Media Allergy Unknown Verified 05/29/23 11:34 diclofenac Allergy Verified 05/29/23 11:34 [From Arthrotec 50] misoprostol Allergy Verified 05/29/23 11:34 [From Arthrotec 50] levofloxacin AdvReac Intermediate Hives Verified 05/29/23 11:34 Penicillins AdvReac Intermediate Verified 05/29/23 11:34 Opioid HPI Opioid Management Most Recent Opioid Data: Last Pain Scale 8 04/14/24 10:41 Last Pain Intensity 8 06/09/23 09:20 Last MAR Pain Assessment 04/14/24 10:41 Last ORT Total Score 0 03/25/24 16:45 Last ORT Risk Category Low Risk 03/25/24 16:45 Review of Systems ROS Narrative Not obtainable, age PFSH [facility] Medical History (Updated 04/14/24 @ 11:25 by Atilio Arreola MD) Chronic knee pain ?M25.569 - Pain in unspecified knee (ICD-10) ?G89.29 - Other chronic pain (ICD-10) Chronic lower back pain ?M54.50 - Low back pain, unspecified (ICD-10) ?G89.29 - Other chronic pain (ICD-10) Wheelchair dependence ?Z99.3 - Dependence on wheelchair (ICD-10) Hypothyroid ?E03.9 - Hypothyroidism, unspecified (ICD-10) HLD (hyperlipidemia) ?E78.5 - Hyperlipidemia, unspecified (ICD-10) Compression fx, lumbar spine ?S32.000A - Wedge compression fracture of unspecified lumbar vertebra, initial encounter for closed fracture (ICD-10) Acute kidney injury ?N17.9 - Acute kidney failure, unspecified (ICD-10) Acute UTI ?N39.0 - Urinary tract infection, site not specified (ICD-10) Nausea vomiting and diarrhea ?R11.2 - Nausea with vomiting, unspecified (ICD-10) ?R19.7 - Diarrhea, unspecified (ICD-10) Leukocytosis ?D72.829 - Elevated white blood cell count, unspecified (ICD-10) Fall ?W19.XXXA - Unspecified fall, initial encounter (ICD-10) Low back pain ?M54.50 - Low back pain, unspecified (ICD-10) B12 deficiency ?E53.8 - Deficiency of other specified B group vitamins (ICD-10) Ventral hernia ?K43.9 - Ventral hernia without obstruction or gangrene (ICD-10) Compression fracture of L5 vertebra ?S32.050A - Wedge compression fracture of fifth lumbar vertebra, initial encounter for closed fracture (ICD-10) Anxiety ?F41.9 - Anxiety disorder, unspecified (ICD-10) Hypertension ?I10 - Essential (primary) hypertension (ICD-10) Graves disease ?E05.00 - Thyrotoxicosis with diffuse goiter without thyrotoxic crisis or storm (ICD-10) Osteopenia ?M85.80 - Other specified disorders of bone density and structure, unspecified site (ICD-10) Small bowel obstruction ?K56.609 - Unspecified intestinal obstruction, unspecified as to partial versus complete obstruction (ICD-10) Diverticula of colon ?K57.30 - Diverticulosis of large intestine without perforation or abscess without bleeding (ICD-10) Arthritis ?M19.90 - Unspecified osteoarthritis, unspecified site (ICD-10) Cervical radiculopathy ?M54.12 - Radiculopathy, cervical region (ICD-10) Type 2 diabetes mellitus ?E11.9 - Type 2 diabetes mellitus without complications (ICD-10) Bronchitis ?J40 - Bronchitis, not specified as acute or chronic (ICD-10) Upper respiratory infection ?J06.9 - Acute upper respiratory infection, unspecified (ICD-10) Surgical History (Updated 05/29/23 @ 11:44 by Mae Escoto RN) History of colon resection ?Z90.49 - Acquired absence of other specified parts of digestive tract (ICD- 10) History of cholecystectomy ?Z90.49 - Acquired absence of other specified parts of digestive tract (ICD- 10) Family History (Updated 03/25/24 @ 16:48 by Kierra Doss) Father Family history of myocardial infarction Sister Family history of stroke Other Family history of CHF (congestive heart failure) Family history of cancer Family history of diabetes mellitus Family history of hypertension Social History (Updated 03/25/24 @ 16:49 by Kierra Doss) Within the past year, how often did you have a drink containing alcohol: never Within the past year, how many standard drinks containing alcohol did you have on a typical day: 1 or 2 Within the past year, how often did you have six or more drinks on one occasion: never Total score: 0 Score interpretation: A score less than 3 is consistent with normal alcohol consumption. Smoking status: Never smoker Non-prescribed substance use: denies use Highest level of school completed/degree received: high school graduate In a typical week, how many times do you talk on the telephone with family, friends, or neighbors: 3 or more times per week How often do you get together with friends or relatives: 3 or more times per week How often do you attend anabaptism or latter-day services: 4 or more times per year Do you belong to any clubs or organizations such as anabaptism groups unions, fraternal or athletic groups, or school groups: yes Feel stressed/tense/nervous/anxious/difficulty sleeping: rather much Gender Identity: female Exam Narrative Exam Narrative: Nurses note and vital signs reviewed and patient is not hypoxic. General: The patient appears in no apparent distress. Skin: Warm, dry, no pallor noted. There is no rash noted. Head: Normocephalic, atraumatic Eye: Normal conjunctiva, no drainage Ears, Nose, Mouth, and Throat: oral mucosa is moist. Nares patent. Cardiovascular: Regular Rate and Rhythm Respiratory: Patient is in no distress, no accessory muscle use, lungs are clear to auscultation, no wheezing, rales or rhonchi Back: non-tender GI: Soft and nontender Musculoskeletal: No deformity of the right hip. Neurological: Awake and alert Psychiatric: Cooperative Constitutional Vital Signs, click to edit/add: Last Vital Signs Temp 98.5 F 04/14/24 09:45 Pulse 80 04/14/24 09:45 Resp 18 04/14/24 09:45 BP 167/73 H 04/14/24 09:45 Pulse Ox 95 04/14/24 09:45 O2 Del Method Room Air 04/14/24 09:45 Course Vital Signs Vital signs: Vital Signs Temperature 98.5 F 04/14/24 09:45 Pulse Rate 80 04/14/24 09:45 Respiratory Rate 18 04/14/24 09:45 Blood Pressure 167/73 H 04/14/24 09:45 Pulse Oximetry 95 04/14/24 09:45 Oxygen Delivery Method Room Air 04/14/24 09:45 Temperature 98.5 F 04/14/24 09:45 Pulse Rate 80 04/14/24 09:45 Respiratory Rate 18 04/14/24 09:45 Blood Pressure 167/73 H 04/14/24 09:45 Pulse Oximetry 95 04/14/24 09:45 Oxygen Delivery Method Room Air 04/14/24 09:45 Medical Decision Making MDM Narrative Medical decision making narrative: Right hip fracture is identified. Findings are discussed with the patient's daughter and the patient will be admitted to Dr. Gibbs and I have communicated with Dr. Luke as well. She will be kept n.p.o. for now until decision is made about timing of the surgery. Differential Diagnosis Differential Diagnosis: Hip contusion, fracture Lab Data Lab results reviewed: Yes I reviewed the patient's lab results Labs: Lab Results 04/14/24 Range/Units 10:23 WBC 15.7 H (4.0-11.0) 10^3/uL RBC 3.95 L (4.20-5.40) 10^6/uL Hgb 11.5 L (12.0-16.0) g/dL Hct 34.5 L (36.0-48.0) % MCV 87.3 (81.0-99.0) fL MCH 29.1 (26.7-34.0) pg MCHC 33.3 (29.9-35.2) g/dL RDW 12.9 (11.0-15.0) % Plt Count 447 (150-450) 10^3/uL MPV 8.0 L (9.5-13.5) fL Neut % (Auto) 86.3 H (43.0-75.0) % Lymph % (Auto) 6.5 L (20.5-60.0) % [place] % (Auto) 6.2 (1.7-12.0) % Eos % (Auto) 0.1 L (0.9-7.0) % Baso % (Auto) 0.2 (0.2-2.0) % Neut # (Auto) 13.6 H (1.4-6.5) 10^3/uL Lymph # (Auto) 1.0 L (1.2-3.8) 10^3/uL [place] # (Auto) 1.0 H (0.3-0.8) 10^3/uL Eos # (Auto) 0.0 (0.0-0.7) 10^3/uL Baso # (Auto) 0.0 (0.0-0.1) 10^3/uL Abs Immat Gran (auto) 0.11 H (0.00-0.03) 10^3/uL Imm/Tot Granulo (auto) 0.7 H (0.0-0.5) % Sodium 122 L* (136-145) mmol/L Potassium 5.2 H (3.5-5.1) mmol/L Chloride 90 L (98-107) mmol/L Carbon Dioxide 27.4 (21.0-32.0) mmol/L Anion Gap 9.8 BUN 36.0 H (7.0-18.0) mg/dL Creatinine 1.35 H (0.55-1.02) mg/dL Est GFR ( Amer) 46 L (>=60) Est GFR (Non-Af Amer) 38 L (>=60) BUN/Creatinine Ratio 26.7 Glucose 122 H (74-106) mg/dL Calcium 9.2 (8.5-10.1) mg/dL Imaging Data Hip x-ray: My impression: Right hip fracture Radiologist's impression: ITS Impressions Hip X-Ray 04/14/24 10:05 IMPRESSION: 1. Acute, displaced, and angulated right femoral neck fracture and suspected displaced fracture involving superior tip of greater trochanter. Electronically authenticated by: SURYA MONTEMAYOR Date: 04/14/2024 11:28 ECG Data Attestation: I personally reviewed and interpreted this ECG as follows: (EKG on my interpretation shows sinus rhythm with a rate of 76 and no acute change.) Discharge Plan Discharge Chief Complaint: Extremity Injury, Lower Clinical Impression: Hip fracture, right Patient Disposition: Admitted As Inpatient Time of Disposition Decision: 11:25 Condition: Fair
--- NOTE | 2024-04-14 10:06 | ECG_ITS ---
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
[2024-04-14 10:34] LABS: Basophils Percent Auto 0.2 % (0.2-2.0); Eosinophils Percent Auto 0.1 % (0.9-7.0); Hematocrit 34.5 % (36.0-48.0); Hemoglobin 11.5 g/dL (12.0-16.0); Immature Granulocytes Abs Auto 0.11 10^3/uL (0.00-0.03); Immature Granulocytes Pct Auto 0.7 % (0.0-0.5); Lymphocytes Percent Auto 6.5 % (20.5-60.0); Mean Corpuscular HGB Conc 33.3 g/dL (29.9-35.2); Mean Corpuscular Hemoglobin 29.1 pg (26.7-34.0); Mean Corpuscular Volume 87.3 fL (81.0-99.0); Monocytes Percent Auto 6.2 % (1.7-12.0); Neutrophils Absolute Auto 13.6 10^3/uL (1.4-6.5); Neutrophils Percent Auto 86.3 % (43.0-75.0); Platelet Count 447 10^3/uL (150-450); Red Blood Count 3.95 10^6/uL (4.20-5.40); Red Cell Distribution Width 12.9 % (11.0-15.0); White Blood Count 15.7 10^3/uL (4.0-11.0)
[2024-04-14] MEDS: MORPHINE SULFATE 2 MG/ML SYRINGE 1 MG IV (10:41)
[2024-04-14 10:42] LABS: Anion Gap 9.8; BUN Creatinine Ratio 26.7; Calcium 9.2 mg/dL (8.5-10.1); Carbon Dioxide 27.4 mmol/L (21.0-32.0); Chloride 90 mmol/L (98-107); Estimated GFR (African America 46 (>=60); Estimated GFR (Non-African Ame 38 (>=60); Glucose 122 mg/dL (74-106); Potassium 5.2 mmol/L (3.5-5.1)
[2024-04-14 10:52] LABS: Sodium 122 mmol/L (136-145)
--- OUTSIDE RECORDS SUMMARY | 2024-04-14 11:07 | XMS_ITS | CCD ---
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 Name Role Phone Marisel Gibbs Primary Care Provider [phone] CHANEL FUENTES Referring Unavailable MARISEL GIBBS Primary [...] (antibiotic) (1 source) cefTRIAXone Drug Allergy 0 [facility] Diclofenac / miSOPROStol (1 source) Diclofenac / miSOPROStol Drug Allergy 0 [facility] Penicillins (antibiotic) (1 source) Penicillins Drug Allergy 2 [facility] (1 source) cefTRIAXone Drug Allergy 0 [place] (1 source) Diclofenac / miSOPROStol Drug Allergy 0 [place] (1 source) Penicillins Propensity to adverse reactions to drug 2 [place], [place] (2 sources) Iodides Propensity to adverse reactions to drug 0 [place] (2 sources) cefTRIAXone Drug Allergy 5 [facility] (1 source) Diclofenac / miSOPROStol Drug Allergy 3 [facility] (2 sources) Iodine (And Iodine Containting Drugs) Drug allergy (disorder) 4 [facility] (2 sources) Penicillin Drug Allergy [facility] Medications Current Medications Medication Drug [...] Onset: 06-01-2022 Episodic Other aftercare (1 source) detention (current) use of aspirin; Translations: [SIDING STAPLER CURRENT USE OF ASPIRIN] Onset: 06-05-2022 Episodic Other aftercare (1 source) Other watermaster (current) drug therapy; Translations: [OTH JAIL CURRENT DRUG THERAPY] Onset: 06-05-2022 Episodic Other [...] by: LONNY CHADWICK Date: 2022-10-13 07:34 Normal [place] XR SACRUM_COCCYXon XR SACRUM_COCCYX EXAMINATION: XR LSPINE [...] by: LONNY CHADWICK Date: 2022-10-12 13:18 Normal [place] NM STRESS/REST MULTIon 09-27 NM STRESS/REST MULTI Patient: JERRY FINNEY Exam Date: 09/27/2022 : 1945 Gender:F Ordering : DR MARISEL GIBBS . Admission #: [id number] Family : Order #: [id number] CLICK HERE TO VIEW EXAM RADIOLOGY REPORT [...] QUALITY OF STUDY: Good. PERFUSION DEFECT: LOCATION: Bunch. SIZE: Small (1-2 segments). SEVERITY: Mild. TYPE: [...] Chadwick MD on 09/28/2022 at 09:20 Normal [place] ECHOCARDIO M/2D COMPLETEon 0 09-14-2022 ECHOCARDIO M/2D COMPLETE Patient: JERRY FINNEY Exam Date: 09/14/2022 : 1945 Gender:F Ordering : DR MARISEL GIBBS . Admission #: [id number] Family : Order #: [id number] CLICK HERE TO VIEW EXAM ECHOCARDIOGRAM REPORT [...] Klein M.D. on 09/14/2022 at 14:51 Normal [place] MG MAMM SCREEN 3D MONCHO CADon 09-14-2022 MG MAMM SCREEN 3D MONCHO CAD Patient: JERRY FINNEY Exam Date: 09/14/2022 : 1945 Gender:F Ordering : DR MARISEL GIBBS . Admission #: [id number] Family : Order #: [id number] CLICK HERE TO VIEW EXAM RADIOLOGY REPORT [...] breast cancer at age 63. LOCATION: [facility] BREAST COMPOSITION: Heterogeneously dense,which may obscure [...] MD on 09/14/2022 at 12:04 Normal [facility] BNPon 08-30-2022 Natriuretic peptide B (Bld) [Mass/Vol] 284.0 pg/mL Normal <=1,800.0 [facility] Comment on above: Performed By: #### L IPID, CMP, BNP, TSH, T7 #### [facility] [address] [address] [address] Rito Madison CBC AUTO DIFFon 08-30-2022 BASO # 0.0 103/ul Normal 0.0-0.1 [place] Comment on above: Performed By: #### C BC ####[facility] [address] [id number]. Rito Madison Basophils/100 WBC (Bld) 0.4 % Normal 0.2-2.0 [facility] Comment on above: Performed By: #### C BC ####[facility] [address] [id number]. Rito Madison EO # 0.1 103/ul Normal 0.0-0.7 [facility] Comment on above: Performed By: #### C BC ####[facility] [address] [address]Dr. Rito Madison Eosinophils/100 WBC (Bld) 1.3 % Normal 0.9-7.0 [facility] Comment on above: Performed By: #### C BC ####[facility] [address] [place], [place] [address]Dr. Rito Madison Erythrocyte distribution width (RBC) [Ratio] 14.5 % Normal 11.0-15.0 [place] Comment on above: Performed By: #### C BC ####[facility] [address] [place], [place] [id number]. Rito Madison Hematocrit (Bld) [Volume fraction] 43.7 % Normal 36.0-48.0 [place] Comment on above: Performed By: #### C BC ####[facility] [address] [place], [place] [id number]. Rito Madison Hemoglobin (Bld) [Mass/Vol] 14.2 g/dL Normal 12.0-16.0 [facility] Comment on above: Performed By: #### C BC ####[facility] [address] [address]Dr. Rito Madison IG # 0.02 10e3/ul Normal 0.00-0.03 [facility] Comment on above: Performed By: #### C BC ####[facility] [address] [place], [place] [address]Dr. Rito Madison IG % 0.3 % Normal 0.0-0.5 [facility] Comment on above: Performed By: #### C BC ####[facility] [address] [phone]. Rito Madison LYMPH # 1.8 103/ul Normal 1.2-3.8 [place] Comment on above: Performed By: #### C BC ####[facility] [address] [phone]. Rito Madison Lymphocytes/100 WBC (Bld) 22.9 % Normal 20.5-60.0 [place] Comment on above: Performed By: #### C BC ####[facility] [address] [phone]. Rito Los MANUAL DIFF REQ NO Normal [place] Comment on above: Performed By: #### C BC ####[facility] [address] [address]Dr. Rito Los MCH (RBC) [Entitic mass] 28.7 pg Normal 26.7-34.0 [place] Comment on above: Performed By: #### C BC ####[facility] [address] [address]Dr. Rito Madison MCHC (RBC) [Mass/Vol] 32.5 g/dL Normal 29.9-35.2 [place] Comment on above: Performed By: #### C BC ####[facility] [address] [phone]. Rito Los MCV (RBC) [Entitic vol] 88.5 fL Normal 81.0-99.0 [facility] Comment on above: Performed By: #### C BC ####[facility] [address] [phone]. Rito Los MONO # 0.5 103/ul Normal 0.3-0.8 [place] Comment on above: Performed By: #### C BC ####[facility] [address] [address]Dr. Rito Los Monocytes/100 WBC (Bld) 6.4 % Normal 1.7-12.0 [facility] Comment on above: Performed By: #### C BC ####[facility] [address] [place], [place] [address]Ma. Rito Madison NEUT # 5.4 103/ul Normal 1.4-6.5 [facility] Comment on above: Performed By: #### C BC ####[facility] [address] [phone]. Rito Los Neutrophils/100 WBC (Bld) 68.7 % Normal 43.0-75.0 [facility] Comment on above: Performed By: #### C BC ####[facility] [address] [phone]. Rito Madison Platelet mean volume (Bld) [Entitic vol] 8.2 fL Critically low 9.5-13.5 [facility] Comment on above: Performed By: #### C BC ####[facility] [address] [phone]. Rito Madison PLT 238 103/ul Normal 150-450 [facility] Comment on above: Performed By: #### C BC ####[facility] [address] [phone]. Yolyjayda Madison RBC 4.94 106/ul Normal 4.20-5.40 [facility] Comment on above: Performed By: #### C BC ####[facility] [address] [phone]. Rito Los WBC 7.8 103/ul Normal 4.0-11.0 [facility] Comment on above: Performed By: #### C BC ####[facility] [address] [phone] Yolyjayda Madison FREE THYROXINE INDEX T7on FTI 2.88 Normal 1.30-4.50 [facility] Comment on above: Performed By: #### L IPID, CMP, BNP, TSH, T7 #### [facility] [address] [place], [place] [address] Dr. Rito Madison T3U 36.0 % Normal 30.0-39.0 [facility] Comment on above: Performed By: #### L IPID, CMP, BNP, TSH, T7 #### [facility] [address] [address] [address] Rito Madison T4 [Mass/Vol] 8.00 ug/dL Normal 4.80-13.90 [place] Comment on above: Performed By: #### L IPID, CMP, BNP, TSH, T7 #### [facility] [address] [address] [address] Rito Madison GLYCOHEMOGLOBIN A1Con 2022 ADA RECOMMENDATION SEE BELOW Normal [place] Comment on above: Result Comment: ADA RECOMMENDED LIMIT 4.0 - 6.0 ADA THERAPEUTIC TARGET < 7.0 ACTION SUGGESTED > 7.0 Performed By: #### A 1C #### [facility] [address] [place] [address] Dr. Rito Madison Glucose [Mass/Vol] 111 mg/dL Normal [place] Comment on above: Performed By: #### A 1C #### [facility] [address] [place] [address] Dr. Rito Madison HbA1c (Bld) [Mass fraction] 5.5 % Normal 4.5-6.2 [place] Comment on above: Performed By: #### A 1C #### [facility] [address] [place] [address] Dr. Rito Madison IRONon 08-30-2022 Iron [Mass/Vol] 125.0 ug/dL Normal 50.0-170.0 [place] Comment on above: Performed By: #### I VINAYAK ####[facility] [address] [address]Dr. Rito Madison LIPID PROFILEon 08-30-2022 CHOL-HDL RATIO NORM SEE BELOW Normal [facility] Comment on above: Result Comment: 3.3 - 4.4 LOW RISK 4.4 - 7.1 AVERAGE RISK 7.1 - 11.0 MODERATE RISK >11.0 HIGH RISK Performed By: #### L IPID, CMP, BNP, TSH, T7 #### [facility] [address] [address] [address] Rito Madison Cholesterol [Mass/Vol] 203 mg/dL Critically high <=200 [facility] Comment on above: Performed By: #### L IPID, CMP, BNP, TSH, T7 #### [facility] [address] [address] [address] Rito Madison Cholesterol in HDL [Mass/Vol] 79 mg/dL Critically high 40-60 [place] Comment on above: Performed By: #### L IPID, CMP, BNP, TSH, T7 #### [facility] [address] [address] [address] Rito Madison Cholesterol in LDL [Mass/Vol] 108.6 mg/dL Normal [place] Comment on above: Performed By: #### L IPID, CMP, BNP, TSH, T7 #### [facility] [address] [place] [address] Dr. Rito Madison Cholesterol.total/Vivian sterol in HDL [Mass ratio] 2.6 {ratio} Normal [place] Comment on above: Performed By: #### L IPID, CMP, BNP, TSH, T7 #### [facility] [address] [address] [address] Rito Madison HDL NORMAL > or = 60 mg/dl - LO W CARDIOVASCULAR RISK <40 mg/dl - HIGH CARDIOVASCULAR RISK Normal [place] Comment on above: Performed By: #### L IPID, CMP, BNP, TSH, T7 #### [facility] [address] [address] [address] Rito Madison LDL CALC NORMAL SEE BELOW Normal [place] Comment on above: Result Comment: <100 mg/dl OPTIMAL 100 - 129 mg/dl NEAR OR ABOVE OPTIMAL 130 - 159 mg/dl BORDERLINE HIGH 160 - 189 mg/dl HIGH >190 mg/dl VERY HIGH Performed By: #### L IPID, CMP, BNP, TSH, T7 #### [facility] [address] [address] [address] Rito Madison Triglyceride [Mass/Vol] 77 mg/dL Normal <=150 T [facility] Comment on above: Performed By: #### L IPID, CMP, BNP, TSH, T7 #### [facility] [address] [address] [address] Rito Madison VLDL CALC 15.4 mg/dL Normal [place] Comment on above: Performed By: #### L IPID, CMP, BNP, TSH, T7 #### [facility] [address] [place] [address] Dr. Rito Madison PROF 14(COMP METB)on 023 Albumin [Mass/Vol] 3.6 g/dL Normal 3.4-5.0 [place] Comment on above: Performed By: #### L IPID, CMP, BNP, TSH, T7 #### [facility] [address] [place] [address] Dr. Rito Madison Albumin/Globulin [Mass ratio] 1.0 {ratio} Normal [place] Comment on above: Performed By: #### L IPID, CMP, BNP, TSH, T7 #### [facility] [address] [place] [address] Dr. Rito Madison ALP [Catalytic activity/Vol] 81 U/L Normal 46-116 [place] Comment on above: Performed By: #### L IPID, CMP, BNP, TSH, T7 #### [facility] [address] [place] [address] Dr. Rito Madison ALT [Catalytic activity/Vol] 49 U/L Normal 14-59 [place] Comment on above: Performed By: #### L IPID, CMP, BNP, TSH, T7 #### [facility] [address] [place] [address] Dr. Rito Madison Anion gap [Moles/Vol] 12.6 mmol/L Normal [facility] Comment on above: Performed By: #### L IPID, CMP, BNP, TSH, T7 #### [facility] [address] [place] [address] Dr. Rito Madison AST [Catalytic activity/Vol] 32 U/L Normal 15-37 [place] Comment on above: Performed By: #### L IPID, CMP, BNP, TSH, T7 #### [facility] [address] [place] [address] Dr. Rito Madison Bilirubin [Mass/Vol] 0.7 mg/dL Normal 0.2-1.0 [place] Comment on above: Performed By: #### L IPID, CMP, BNP, TSH, T7 #### [facility] [address] [place] [address] Dr. Rito Madison Calcium [Mass/Vol] 9.3 mg/dL Normal 8.5-10.1 [place] Comment on above: Performed By: #### L IPID, CMP, BNP, TSH, T7 #### [facility] [address] [place] [address] Dr. Rito Madison Chloride [Moles/Vol] 103 mmol/L Normal 98-107 [facility] Comment on above: Performed By: #### L IPID, CMP, BNP, TSH, T7 #### [facility] [address] [place] [address] Dr. Rito Madison CO2 [Moles/Vol] 29.5 mmol/L Normal 21.0-32.0 [place] Comment on above: Performed By: #### L IPID, CMP, BNP, TSH, T7 #### [facility] [address] [place] [address] Dr. Rito Madison Creatinine [Mass/Vol] 0.79 mg/dL Normal 0.55-1.02 [place] Comment on above: Performed By: #### L IPID, CMP, BNP, TSH, T7 #### [facility] [address] [place] [address] Dr. Rito Madison EGFR-AF TURKMEN >60 Normal >=60 [place] Comment on above: Performed By: #### L IPID, CMP, BNP, TSH, T7 #### [facility] [address] [place] [address] Dr. Rito Madison EGFR-NON AF TURKMEN >60 Normal >=60 [place] Comment on above: Performed By: #### L IPID, CMP, BNP, TSH, T7 #### [facility] [address] [place] [address] Dr. Rito Madison Globulin (S) [Mass/Vol] 3.6 g/dL Normal T [facility] Comment on above: Performed By: #### L IPID, CMP, BNP, TSH, T7 #### [facility] [address] [address] [address] Rito Madison Glucose [Mass/Vol] 88 mg/dL Normal 74-106 [facility] Comment on above: Performed By: #### L IPID, CMP, BNP, TSH, T7 #### [facility] [address] [place] [address] Dr. Rito Madison Potassium [Moles/Vol] 4.1 mmol/L Normal 3.5-5.1 [facility] Comment on above: Performed By: #### L IPID, CMP, BNP, TSH, T7 #### [facility] [address] [place] [address] Dr. Rito Madison Protein [Mass/Vol] 7.2 g/dL Normal 6.4-8.2 [place] Comment on above: Performed By: #### L IPID, CMP, BNP, TSH, T7 #### [facility] [address] [place] [address] Dr. Rito Madison Sodium [Moles/Vol] 141 mmol/L Normal 136-145 [facility] Comment on above: Performed By: #### L IPID, CMP, BNP, TSH, T7 #### [facility] [address] [place] [address] Dr. Rito Madison Urea nitrogen [Mass/Vol] 17.0 mg/dL Normal 7.0-18.0 [place] Comment on above: Performed By: #### L IPID, CMP, BNP, TSH, T7 #### [facility] [address] [place] [address] Dr. Rito Madison Urea nitrogen/Creatinine [Mass ratio] 21.5 mg/mg Normal [facility] Comment on above: Performed By: #### L IPID, CMP, BNP, TSH, T7 #### [facility] [address] [place] [address] Dr. Rito Madison TSHon 08-30-2022 TSH 4.464 uIU/mL Critically high 0.358-3.740 [facility] Comment on above: Performed By: #### L IPID, CMP, BNP, TSH, T7 #### [facility] [address] [place], [place] [address] Dr. Rito Madison CBC AUTO DIFFon 06-01-2022 BASO # 0.0 103/ul Normal 0.0-0.1 [place] Comment on above: Performed By: #### C BC ####[facility] [address] [phone] Madison Basophils/100 WBC (Bld) 0.2 % Normal 0.2-2.0 [facility] Comment on above: Performed By: #### C BC ####[facility] [address] [address]DrAntonietta Madison EO # 0.1 103/ul Normal 0.0-0.7 [place] Comment on above: Performed By: #### C BC ####[facility] [address] [address]DrAntonietta Madison Eosinophils/100 WBC (Bld) 1.5 % Normal 0.9-7.0 [place] Comment on above: Performed By: #### C BC ####[facility] [address] [address]DrAntonietta Madison Erythrocyte distribution width (RBC) [Ratio] 12.9 % Normal 11.0-15.0 [place] Comment on above: Performed By: #### C BC ####[facility] [address] [phone] Madison Hematocrit (Bld) [Volume fraction] 44.4 % Normal 36.0-48.0 [place] Comment on above: Performed By: #### C BC ####[facility] [address] [phone] Madison Hemoglobin (Bld) [Mass/Vol] 14.7 g/dL Normal 12.0-16.0 [place] Comment on above: Performed By: #### C BC ####[facility] [address] [address]DrAntonietta Madison IG # 0.03 10e3/ul Normal 0.00-0.03 [facility] Comment on above: Performed By: #### C BC ####[facility] [address] [address]Dr. Rito Madison IG % 0.3 % Normal 0.0-0.5 [place] Comment on above: Performed By: #### C BC ####[facility] [address] [address]Dr. Yolyjayda Madison LYMPH # 1.7 103/ul Normal 1.2-3.8 [place] Comment on above: Performed By: #### C BC ####[facility] [address] [address]Dr. Yolyjayda Madison Lymphocytes/100 WBC (Bld) 19.5 % Critically low 20.5-60.0 [place] Comment on above: Performed By: #### C BC ####[facility] [address] [place], [place] [address]Dr. Rito Madison MANUAL DIFF REQ NO Normal [place] Comment on above: Performed By: #### C BC ####[facility] [address] [place], [place] [address]Dr. Yolyjayda Madison MCH (RBC) [Entitic mass] 28.3 pg Normal 26.7-34.0 [place] Comment on above: Performed By: #### C BC ####[facility] [address] [address]Dr. Yolyjayda Madison MCHC (RBC) [Mass/Vol] 33.1 g/dL Normal 29.9-35.2 [place] Comment on above: Performed By: #### C BC ####[facility] [address] [place], [place] [address]Dr. Yolyjayda Madison MCV (RBC) [Entitic vol] 85.4 fL Normal 81.0-99.0 [facility] Comment on above: Performed By: #### C BC ####[facility] [address] [place], [place] [address]Dr. Rito Madison MONO # 0.7 103/ul Normal 0.3-0.8 [place] Comment on above: Performed By: #### C BC ####[facility] [address] [phone]. Rito Madison Monocytes/100 WBC (Bld) 8.3 % Normal 1.7-12.0 [facility] Comment on above: Performed By: #### C BC ####[facility] [address] [phone]. Rito Madison NEUT # 6.3 103/ul Normal 1.4-6.5 [place] Comment on above: Performed By: #### C BC ####[facility] [address] [address]Dr. Rito Madison Neutrophils/100 WBC (Bld) 70.2 % Normal 43.0-75.0 [place] Comment on above: Performed By: #### C BC ####[facility] [address] [address]Dr. Rito Madison Platelet mean volume (Bld) [Entitic vol] 8.4 fL Critically low 9.5-13.5 [place] Comment on above: Performed By: #### C BC ####[facility] [address] [place], [place] [address]Dr. Rito Madison PLT 295 103/ul Normal 150-450 [place] Comment on above: Performed By: #### C BC ####[facility] [address] [address]Dr. Rito Madison RBC 5.20 106/ul Normal 4.20-5.40 [place] Comment on above: Performed By: #### C BC ####[facility] [address] [phone]. Rito Madison WBC 8.9 103/ul Normal 4.0-11.0 [facility] Comment on above: Performed By: #### C BC ####[facility] [address] [address]DrAntonietta Rito Madison PROF CHEM 8 (BAS METB)on Anion gap [Moles/Vol] 9.8 mmol/L Normal [place] Comment on above: Performed By: #### B MP #### [facility] [address] [address] [address] Rito Madison Calcium [Mass/Vol] 9.2 mg/dL Normal 8.5-10.1 [facility] Comment on above: Performed By: #### B MP #### [facility] [address] [address] [address] Rito Madison Chloride [Moles/Vol] 103 mmol/L Normal 98-107 [place] Comment on above: Performed By: #### B MP #### [facility] [address] [address] [address] Rito Madison CO2 [Moles/Vol] 25.8 mmol/L Normal 21.0-32.0 [place] Comment on above: Performed By: #### B MP #### [facility] [address] [address] [address] Rito Madison Creatinine [Mass/Vol] 0.86 mg/dL Normal 0.55-1.02 [place] Comment on above: Performed By: #### B MP #### [facility] [address] [address] [address] Rito Madison EGFR-AF TURKMEN >60 Normal >=60 [facility] Comment on above: Performed By: #### B MP #### [facility] [address] [address] [address] Rito Madison EGFR-NON AF TURKMEN >60 Normal >=60 [facility] Comment on above: Performed By: #### B MP #### [facility] [address] [address] [address] Rito Madison Glucose [Mass/Vol] 109 mg/dL Critically high 74-106 [facility] Comment on above: Performed By: #### B MP #### [facility] [address] [address] [address] Rito Madison Potassium [Moles/Vol] 3.6 mmol/L Normal 3.5-5.1 [facility] Comment on above: Performed By: #### B MP #### [facility] [address] [address] [address] Rito Madison Sodium [Moles/Vol] 135 mmol/L Critically low 136-145 [facility] Comment on above: Performed By: #### B MP #### [facility] [address] [address] [address] Rito Madison Urea nitrogen [Mass/Vol] 14.0 mg/dL Normal 7.0-18.0 [place] Comment on above: Performed By: #### B MP #### [facility] [address] [address] [address] Rito Madison Urea nitrogen/Creatinine [Mass ratio] 16.3 mg/mg Normal [place] Comment on above: Performed By: #### B MP #### [facility] [address] [place] [address] Dr. Rito Madison AMYLASEon 05-07-2022 Amylase [Catalytic activity/Vol] 82 U/L Normal 25-115 [place] Comment on above: Performed By: #### L IPA, CMP, TRINY ####[facility] [address] [address]Dr. Rito Madison CBC AUTO DIFFon 05-07-2022 BASO # 0.0 103/ul Normal 0.0-0.1 [place] Comment on above: Performed By: #### C BC ####[facility] [address] [address]Dr. Rito Madison Basophils/100 WBC (Bld) 0.4 % Normal 0.2-2.0 [facility] Comment on above: Performed By: #### C BC ####[facility] [address] [phone] Madison EO # 0.2 103/ul Normal 0.0-0.7 [place] Comment on above: Performed By: #### C BC ####[facility] [address] [phone]. Rito Madison Eosinophils/100 WBC (Bld) 2.0 % Normal 0.9-7.0 [place] Comment on above: Performed By: #### C BC ####[facility] [address] [address]Dr. Rito Madison Erythrocyte distribution width (RBC) [Ratio] 12.8 % Normal 11.0-15.0 [place] Comment on above: Performed By: #### C BC ####[facility] [address] [address]Dr. Rito Madison Hematocrit (Bld) [Volume fraction] 42.7 % Normal 36.0-48.0 [place] Comment on above: Performed By: #### C BC ####[facility] Qcribaiupi[address] [place], [place] [address]Dr. Rito Madison Hemoglobin (Bld) [Mass/Vol] 14.2 g/dL Normal 12.0-16.0 [facility] Comment on above: Performed By: #### C BC ####[facility] Ids[address]sit[address] [place], [place] [address]Dr. Rtio Madison IG # 0.03 10e3/ul Normal 0.00-0.03 [facility] Comment on above: Performed By: #### C BC ####[facility] Nieuakphbj[address] [place], [place] [address]Dr. Rito Madison IG % 0.4 % Normal 0.0-0.5 [place] Comment on above: Performed By: #### C BC ####[facility] Qjwqx[address] [place], [place] [address]Dr. Rito Madison LYMPH # 2.2 103/ul Normal 1.2-3.8 [facility] Comment on above: Performed By: #### C BC ####[facility] [address] [place], [place] [address]Dr. Rito Madison Lymphocytes/100 WBC (Bld) 26.0 % Normal 20.5-60.0 [facility] Comment on above: Performed By: #### C BC ####[facility] [address] [place] [address]Dr. Rito Madison MANUAL DIFF REQ NO Normal [facility] Comment on above: Performed By: #### C BC ####[facility] [address] [place] [id number]. Rito Madison MCH (RBC) [Entitic mass] 29.2 pg Normal 26.7-34.0 [place] Comment on above: Performed By: #### C BC ####[facility] [address] [place] [address]Dr. Rito Madison MCHC (RBC) [Mass/Vol] 33.3 g/dL Normal 29.9-35.2 [place] Comment on above: Performed By: #### C BC ####[facility] [address] [place] [id number]. Rito Los MCV (RBC) [Entitic vol] 87.7 fL Normal 81.0-99.0 [facility] Comment on above: Performed By: #### C BC ####[facility] [address] [place], [place] [address]Dr. Rito Madison MONO # 0.8 103/ul Normal 0.3-0.8 [place] Comment on above: Performed By: #### C BC ####[facility] [address] [place] [address]Dr. Yolyjayda Madison Monocytes/100 WBC (Bld) 9.2 % Normal 1.7-12.0 [facility] Comment on above: Performed By: #### C BC ####[facility] [address] [place], [place] [address]Dr. Yolyjayda Madison NEUT # 5.3 103/ul Normal 1.4-6.5 [place] Comment on above: Performed By: #### C BC ####[facility] [address]fxuvol[address] [place], [place] [address]Dr. Rito Madison Neutrophils/100 WBC (Bld) 62.0 % Normal 43.0-75.0 [place] Comment on above: Performed By: #### C BC ####[facility] [address] [place], [place] [address]Dr. Rito Madison Platelet mean volume (Bld) [Entitic vol] 8.5 fL Critically low 9.5-13.5 [place] Comment on above: Performed By: #### C BC ####[facility] [address] [place], [place] [address]Cf. Rito Madison PLT 291 103/ul Normal 150-450 [facility] Comment on above: Performed By: #### C BC ####[facility] [address] [place], [place] [address]Sm. Rito Madison RBC 4.87 106/ul Normal 4.20-5.40 [facility] Comment on above: Performed By: #### C BC ####[facility] [address] [place], [place] [address]Ap. Rito Madison WBC 8.5 103/ul Normal 4.0-11.0 [place] Comment on above: Performed By: #### C BC ####[facility] [address] [place], [place] [address]Gp. [address] ABD/PELVIS WO CONon 05-07 [...] CATHRYN OATES Date: 2022-05-07 06:53 Normal [facility] CULTURE URINEon 05-07-2022 CULTURE URINE Culture Observations : No growth Normal [facility] Comment on above: Performed By: #### U RCX ####[facility] [address] [place], [place] [address]HzAntonietta MARINO URINE PROFILEon 2 Bilirubin Ql (U) Negative Normal NEGATIVE [facility] Comment on above: Performed By: #### E TAMMY SANTIZO ####[facility] [address] [place] [address]Dr. Rito Madison Clarity (U) CLEAR Normal CLEAR [facility] Comment on above: Performed By: #### RUBEN MARIERO ####[facility] S[address] [place], [place] [address]Dr. Yolyjayda Madison Color (U) LT. YELLOW Normal YELLOW [facility] Comment on above: Performed By: #### RUBEN MARIERO ####[facility] [address] [place], [place] [address]Dr. Yolyjayda Madison ERUAHD A micrscopic examination will be performed if indicated. Normal [facility] Comment on above: Performed By: #### RUBEN MARIERO ####[facility] W[address]ktr[address] [place], [place] [address]Dr. Rito Madison Glucose Ql (U) Negative Normal NEGATIVE [facility] Comment on above: Performed By: #### MARV MARIEICRO ####[facility] V[address]mf[address]bq[address] [place], [place] [address]Dr. Yolyjayda Los Hemoglobin Ql (U) Negative Normal NEGATIVE [facility] Comment on above: Performed By: #### RUBEN MARIERO ####[facility] [address] [place], [place] [address]Dr. Rito Madison Ketones Ql (U) Negative Normal NEGATIVE [facility] Comment on above: Performed By: #### MARV MARIEICRO ####[facility] Ikecjlrqwe[address] [place], [place] [address]Dr. Rito Madison LEUKOCYTES MODERATE Abnormal NEGATIVE [facility] Comment on above: Performed By: #### MARV MARIEICRO ####[facility] [address]app[address] [place], [place] [address]Dr. Rito Madison Nitrite Ql (U) Negative Normal NEGATIVE [facility] Comment on above: Performed By: #### Jatinder SANTIZO UMICRO ####[facility] V[address]iswyojp[address] [place], [place] [address]Dr. Rito Madison pH (U) 6.0 [pH] Normal 5-9 [facility] Comment on above: Performed By: #### RUBEN MARIERO ####[facility] [address] [place] [address]Dr. Rito Madison SPEC GRAVITY 1.015 Normal 1.005-<=1.025 [facility] Comment on above: Performed By: #### RUBEN MARIERO ####[facility] [address] [place] [address]Dr. Rito Madison UA PROTEIN Negative Normal NEGATIVE/ TRACE [facility] Comment on above: Performed By: #### Jatinder SANTIZO ICRO ####[facility] [address] [place] [address]Dr. Rito Madison UR MICRO IND INDICATED Normal [facility] Comment on above: Performed By: #### Jatinder SANTIZO DAVIERO ####[facility] H[address]ounuynrj[address] [place], [place] [address]Dr. Rito Madison Urobilinogen Qn (U) 0.2 {Scarlet'U}/dL Normal 0.2 - 1. 0 [place] Comment on above: Performed By: #### Jatinder SANTIZO [facility] ####[facility] Cjbpnxysqj[address] [place], [place] [address]Dr. Rito Madison LIPASEon 05-07-2022 Lipase [Catalytic activity/Vol] 171.0 U/L Normal 73.0-393.0 [facility] Comment on above: Performed By: #### L IPA, CMP, TRINY ####[facility] Fcyfnsfz[address] [place], [place] [address]Dr. Rito Madison PROF 14(COMP METB)on 022 Albumin [Mass/Vol] 3.6 g/dL Normal 3.4-5.0 [facility] Comment on above: Performed By: #### L IPA, CMP, TRINY ####[facility] R[address]wczqq[address] [place], [place] [address]Dr. Rito Madison Albumin/Globulin [Mass ratio] 0.9 {ratio} Normal [facility] Comment on above: Performed By: #### L IPA, CMP, TRINY ####[facility] Qacsibuhbw[address] [place], [place] [address]Dr. Rito Madison ALP [Catalytic activity/Vol] 80 U/L Normal 46-116 [facility] Comment on above: Performed By: #### L IPA, CMP, TRINY ####[facility] [address] [place] [address]Dr. Rito Madison ALT [Catalytic activity/Vol] 22 U/L Normal 14-59 [facility] Comment on above: Performed By: #### L IPA, CMP, TRINY ####[facility] I[address]ai[address]fr[address] [place], [place] [address]Dr. Rito Madison Anion gap [Moles/Vol] 9.1 mmol/L Normal [place] Comment on above: Performed By: #### L IPA, CMP, TRINY ####[facility] [address]sp[address] [place], [place] [address]Dr. Rito Madison AST [Catalytic activity/Vol] 25 U/L Normal 15-37 [facility] Comment on above: Performed By: #### L IPA, CMP, TRINY ####[facility] Yqovf[address]obi[address] [place], [place] [address]Dr. Rito Madison Bilirubin [Mass/Vol] 0.6 mg/dL Normal 0.2-1.0 [facility] Comment on above: Performed By: #### L IPA CMP, TRINY ####[facility] Nxpebautid[address] [place], [place] [address]Dr. Rito Madison Calcium [Mass/Vol] 9.1 mg/dL Normal 8.5-10.1 [facility] Comment on above: Performed By: #### L IPA, CMP, TRINY ####[facility] H[address]auabth[address] [place], [place] [address]Dr. Rito Madison Chloride [Moles/Vol] 104 mmol/L Normal 98-107 [facility] Comment on above: Performed By: #### L IPA, CMP, TRINY ####[facility] T[address]fydtiv[address] [place], [place] [address]Dr. Rito Madison CO2 [Moles/Vol] 28.6 mmol/L Normal 21.0-32.0 [facility] Comment on above: Performed By: #### L IPA, CMP, TRINY ####[facility] [address] [place] [id number]. Rito Madison Creatinine [Mass/Vol] 0.80 mg/dL Normal 0.55-1.02 [place] Comment on above: Performed By: #### L IPA, CMP, TRINY ####[facility] [address] [place] [phone]. Rito Madison EGFR-AF TURKMEN >60 Normal >=60 [place] Comment on above: Performed By: #### L IPA, CMP, TRINY ####[facility] [address] [place] [phone]. Rito Madison EGFR-NON AF TURKMEN >60 Normal >=60 [place] Comment on above: Performed By: #### L IPA, CMP, TRINY ####[facility] [address] [place] [address]Dr. Rito Madison Globulin (S) [Mass/Vol] 3.9 g/dL Normal [facility] Comment on above: Performed By: #### L IPA, CMP, TRINY ####[facility] [address] [place] [address]Dr. Rito Madison Glucose [Mass/Vol] 107 mg/dL Critically high 74-106 [facility] Comment on above: Performed By: #### L IPA, CMP, TRINY ####[facility] [address]tsf[address] [place] [address]Dr. Rito Madison Potassium [Moles/Vol] 3.7 mmol/L Normal 3.5-5.1 [place] Comment on above: Performed By: #### L IPA, CMP, TRINY ####[facility] [address] [place] [address]Dr. Rito Madison Protein [Mass/Vol] 7.5 g/dL Normal 6.4-8.2 [place] Comment on above: Performed By: #### L IPA, CMP, TRINY ####[facility] [address] [place] [address]Dr. Rito Madison Sodium [Moles/Vol] 138 mmol/L Normal 136-145 [place] Comment on above: Performed By: #### L IPA, CMP, TRINY ####[facility] [address] [place] [address]Dr. Yolyjayda Los Urea nitrogen [Mass/Vol] 14.0 mg/dL Normal 7.0-18.0 [facility] Comment on above: Performed By: #### L IPA, CMP, TRINY ####[facility] [address] [place] [address]Dr. Rito Madison Urea nitrogen/Creatinine [Mass ratio] 17.5 mg/mg Normal [facility] Comment on above: Performed By: #### L IPA, CMP, TRINY ####[facility] [address] [place] [address]Dr. Rito Madison URINE MICROSCOPIC ONLYon BACTERIA NONE SEEN Normal NONE SEEN [facility] Comment on above: Performed By: #### Jatinder RUJojo UMICRO ####[facility] [address]vb[address] [place], [place] [address]Dr. Rito Madison Bacteria identified Cx Nom (U) INDICATED Normal [facility] Comment on above: Performed By: #### Jatinder SANTIZO UMICRO ####[facility] [address] [place], [place] [address]Dr. Rito Madison CAST NONE SEEN Normal NONE SEEN [facility] Comment on above: Performed By: #### Jatinder SANTIZO UMICRO ####[facility] [address] [place], [place] [address]Dr. Rito Madison Crystals LM Nom (Urine sed) NONE SEEN Normal NONE SEEN [facility] Comment on above: Performed By: #### E RUR, UMICRO ####[facility] [address] [place] [address]Dr. Rito Madison Epithelial cells LM Ql (Urine sed) FEW Abnormal NONE SEEN /RARE [facility] Comment on above: Performed By: #### E RUR, UMICRO ####[facility] [address] [place] [address]Dr. Rito Madison MUCOUS NONE SEEN Normal NONE SEEN [facility] Comment on above: Performed By: #### E RUR UMICRO ####[facility] [address] [place], [place] [address]Ri. Rito Madison RBC 0-2 Normal 0-2 [facility] Comment on above: Performed By: #### TAMMY MARIE ####[facility] [address] [place], [place] [address]Gc. Rito Madison WBC 10-20 Abnormal NONE SEEN [facility] Comment on above: Performed By: #### TAMMY MARIE ####[facility] [address] [place], [place] [address]Er. Rito Madison MRI CSPINE WO CONon 03-23-20 [...] SURYA MONTEMAYOR Date: 2022-03-23 06:23 Normal [facility] XR CSPINE MIN 4 VIEWSon 08- [...] SURYA MONTEMAYOR Date: 2022-03-10 11:08 Normal [facility] EKG 12 LeadOrdered By: Taz Gan on 02-16-2021 Atrial Rate 58 BPM [employer] Phone: P Sterling 67 degrees [employer] Phone: [phone] P-R Interval 156 ms [employer] Phone: Q-T Interval 446 ms [employer] Phone: QRS Duration 112 ms [place] Phone: QTc Calculation (Bazett) 437 ms [employer] Phone: R Sterling -75 degrees [employer] Phone: T Sterling 27 degrees [place] Phone: Ventricular Rate 58 BPM [employer] Phone: Sinus bradycardia Left axis deviation Pulmonary disease pattern T wave abnormality, consider anterior ischemia Abnormal ECG When compared with ECG of 19-MAY-2020 14:49, Incomplete right bundle branch block is no longer Present T wave inversion no longer evident in Inferior leads T wave inversion no longer evident in Lateral leads [employer] Phone: Marlo, Mhpn Incoming Ekg Results From [facility] [place] - 02/16/2021 9:14 AM EDT Sinus bradycardia Left axis deviation Pulmonary disease pattern T wave abnormality, consider anterior ischemia Abnormal ECG When compared with ECG of 19-MAY-2020 14:49, Incomplete right bundle branch block is no longer Present T wave inversion no longer evident in Inferior leads T wave inversion no longer evident in Lateral leads [facility] Phone: [place] Phone: MRSA DNA Probe, NasalOrdered By: Chanel Fuentes on 02-16-2021 MRSA, DNA, Nasal NEGATIVE: MRSA DNA not detected by nucleic acid amplification. NEGATIVE: MRSA DNA not detected by nucleic acid amplificati [facility] Phone: Comment on above: Results should be used as an adjunct to nosocomial control efforts to identify patients needing enhanced precautions. The test is not intended to identify patients with staphylococcal infections. Results should not be used to guide or monitor treatment for MRSA infections. Specimen Description .NASAL SWAB [facility] [employer] Phone: [facility] [employer] [facility] Phone: MRSA, DNA, Nasalon MRSA, DNA, Nasal NEGATIVE: MRSA DNA not detected by nucleic acid amplification. Normal [facility] Comment on above: Result Comment: Results should be used as an adjunct to nosocomial control efforts to identify patients needing enhanced precautions. The test is not intended to identify patients with staphylococcal infections. Results should not be used to guide or monitor treatment for MRSA infections. Performed By: #### M RSANO #### [facility] [address] [place] [address] Substation Designer: Rui Strauss DO [employer] [address] [place] [address] Substation Designer: Brody Remy MD Basic Metabolic PanelOrdered By: Taz Gan on 02-15-2021 Anion gap [Moles/Vol] 7 mmol/L Low 9 - 17 mmol/L [employer] Phone: Calcium [Mass/Vol] 9.0 mg/dL 8.6 - 10. 4 mg/dL [employer] Phone: Chloride [Moles/Vol] 103 mmol/L 98 - 10 7 mmol/L [employer] Phone: CO2 [Moles/Vol] 30 mmol/L 20 - 31 mmol/L [employer] Phone: Creatinine [Mass/Vol] 0.61 mg/dL 0.50 - 0.90 mg/dL [employer] Phone: GFR >60 >60 mL/min [employer] Phone: GFR Non- >60 >60 mL/min [place] Phone: GFR/1.73 sq M.predicted MDRD (S/P/Bld) [Vol rate/Area] [employer] Phone: Comment on above: Average GFR for 70 o r more years old: 75 mL/min/1.73sq m Chronic Kidney Disease: <60 mL/min/1.73sq m Kidney failure: <15 mL/min/1.73sq m eGFR calculated using average adult body mass. Additional eGFR calculator available at: http://www.[employer]com/multiple_crcl_2012.htm GFR/1.73 sq M.predicted MDRD (S/P/Bld) [Vol rate/Area] NOT REPORTED [employer] Phone: Glucose [Mass/Vol] 95 mg/dL 70 - 99 mg/dL [facility] [employer] Phone: Interpretation and review of laboratory results Abnormal [facility] Phone: Potassium [Moles/Vol] 4.1 mmol/L 3.7 - 5.3 mmol/L [facility] Phone: Sodium [Moles/Vol] 140 mmol/L 135 - 144 mmol/L [facility] Phone: Urea nitrogen (BldV) [Mass/Vol] 16 mg/dL 8 - 23 mg/dL [facility] [employer] Phone: Urea nitrogen/Creatinine (Bld) [Mass ratio] NOT REPORTED [facility] Phone: [employer] Phone: Basic Metabolic Profon 02-15 (cont.) Normal [facility] Comment on above: Result Comment: Aver age GFR for 70 or more years old: 75 mL/min/1.73sq m Chronic Kidney Disease: <60 mL/min/1.73sq m Kidney failure: <15 mL/min/1.73sq m eGFR calculated using average adult body mass. Additional eGFR calculator available at: http://www.[employer]/multiple_crcl_2012.htm Performed By: #### B ROSSI, CDP #### [facility] [address] [place], [place] [id number] Substation Designer: Rui Strauss DO Anion gap [Moles/Vol] 7 mmol/L Low 9-17 [facility] Comment on above: Performed By: #### B ROSSI, CDP #### [facility] [address] [place], [place] [id number] Substation Designer: Rui Strauss DO Calcium [Mass/Vol] 9.0 mg/dL Normal 8.6-10.4 [facility] Comment on above: Performed By: #### B ROSSI, CDP #### [facility] [address] [place] [address] Substation Designer: Rui Strauss DO Chloride [Moles/Vol] 103 mmol/L Normal 98-107 [facility] Comment on above: Performed By: #### B ROSSI, CDP #### [facility] [address] [place] [address] Substation Designer: Rui Strauss DO CO2 [Moles/Vol] 30 mmol/L Normal 20-31 [facility] Comment on above: Performed By: #### B ROSSI, CDP #### [facility] [address] [place] [address] Substation Designer: Rui Strauss DO Creatinine [Mass/Vol] 0.61 mg/dL Normal 0.50-0.90 [facility] Comment on above: Performed By: #### B ROSSI, CDP #### [facility] [facility] [place] [address] Substation Designer: Rui Strauss DO GFR, Amer >60 Normal >60 [facility] Comment on above: Performed By: #### B ROSSI, CDP #### [facility] [facility] [place] [address] Substation Designer: Rui Strauss DO GFR,non Amer >60 Normal >60 [facility] Comment on above: Performed By: #### B ROSSI, CDP #### [facility] [place] [address] Substation Designer: Rui Strauss DO Glucose [Mass/Vol] 95 mg/dL Normal 70-99 [facility] Comment on above: Performed By: #### B ROSSI, CDP #### [facility] [place] [address] Substation Designer: Rui Strauss DO Potassium [Moles/Vol] 4.1 mmol/L Normal 3.7-5.3 [facility] Comment on above: Performed By: #### B ROSSI, CDP #### [facility] [address] [place] [address] Substation Designer: Rui Strauss DO Sodium [Moles/Vol] 140 mmol/L Normal 135-144 [facility] Comment on above: Performed By: #### B ROSSI, CDP #### [facility] [address] [facility] [place] [address] Substation Designer: Rui Strauss DO Urea nitrogen [Mass/Vol] 16 mg/dL Normal 8-23 [facility] Comment on above: Performed By: #### B ROSSI, CDP #### [facility] [address] [facility] [place] [address] Substation Designer: Rui Strauss DO BUN/CRE Ratio NOT REPORTED Normal 9-20 [facility] Comment on above: Performed By: #### B ROSSI, CDP #### [facility] [address] [facility] [place] [address] Substation Designer: Rui Strauss DO Staging: NOT REPORTED Normal [facility] Comment on above: Performed By: #### B ROSSI, CDP #### [facility] [address] [facility] [place] [address] Substation Designer: Rui Strauss DO CBC Auto DifferentialOrdered By: Taz aGn on 02-15-2021 Absolute Eos # 0.10 [place] Phone: Absolute Immature Granulocyte NOT REPORTED [employer] Phone: Absolute Lymph # 1.90 [place] Phone: Absolute [place] # 0.60 [employer] Phone: Basophils (Bld) [#/Vol] 0.00 10*3/uL [employer] Phone: Basophils/100 WBC (Bld) 0 % 0 - 2 % M [employer] Phone: Differential Type NOT REPORTED [employer] Phone: Eosinophils/100 WBC (Bld) 1 % 0 - 4 % [employer] Phone: Hematocrit (Bld) [Volume fraction] 37.1 % 36 - 46 % [employer] Phone: Hemoglobin.gastrointest inal spec 1 Ql (Stl) 12.6 g/dL 12.0 - 16.0 g/dL [employer] Phone: Immature Granulocytes NOT REPORTED 0 % M [employer] Phone: Interpretation and review of laboratory results Abnormal [place] Phone: Lymphocytes/100 WBC (Bld) 28 % 24 - 44 % [employer] Phone: MCH (RBC) [Entitic mass] 36.5 pg High 26 - 34 pg [employer] Phone: MCHC (RBC) [Mass/Vol] 34.0 g/dL 31 - 37 g/dL M [employer] Phone: MCV (RBC) [Entitic vol] 107.3 fL High 80 - 100 fL [employer] Phone: Monocytes/100 WBC (Bld) 8 % High 1 - 7 % M [employer] Phone: NRBC Automated NOT REPORTED per 100 WBC [employer] Phone: Platelet distribution width (Bld) [Ratio] 15.9 % High 11.5 - 14.9 % [employer] Phone: Platelet Estimate NOT REPORTED [employer] Phone: Platelet mean volume (Bld) [Entitic vol] 6.5 fL 6.0 - 12.0 fL [employer] Phone: Platelets (Bld) [#/Vol] 292 10*3/uL [employer] Phone: RBC (Bld) [#/Vol] 3.46 10*6/uL Low 4.0 - 5.2 m/uL M [employer] Phone: RBC (Bld) [#/Vol] NOT REPORTED [employer] Phone: Segmented neutrophils/100 WBC (Bld) 63 % 36 - 66 % [employer] Phone: Segs Absolute 4.20 [place] Phone: WBC (Bld) [#/Vol] 6.7 10*3/uL [employer] Phone: WBC (Bld) [#/Vol] NOT REPORTED [employer] Phone: [employer] Phone: CBC with Diffon 02-15-2021 Abs. Basophil 0.00 k/uL Normal 0.0-0.2 [facility] Comment on above: Performed By: #### B ROSSI, CDP #### [facility] [address] [place] [address] Substation Designer: Rui Strauss DO Abs.Neutrophil (Seg) 4.20 k/uL Normal 1.3-9.1 [facility] Comment on above: Performed By: #### B ROSSI, CDP #### [facility] [address] [place] [address] Substation Designer: Rui Strauss DO Basophils/100 WBC (Bld) 0 % Normal 0-2 M [facility] Comment on above: Performed By: #### B ROSSI, CDP #### [facility] [address] [place] [address] Substation Designer: Rui Strauss DO Eosinophils (Bld) [#/Vol] 0.10 10*3/uL Normal 0.0-0.4 [facility] Comment on above: Performed By: #### Lazaro RICHEY, CDP #### [facility] [address] [place] [address] Substation Designer: Rui Strauss DO Eosinophils/100 WBC (Bld) 1 % Normal 0-4 [facility] [facility] Comment on above: Performed By: #### B ROSSI, CDP #### [facility] [address] [place] [address] Substation Designer: Rui Strauss DO Erythrocyte distribution width (RBC) [Ratio] 15.9 % High 11.5-14.9 [facility] Comment on above: Performed By: #### Lazaro RICHEY, CDP #### [facility] [place] [address] Substation Designer: Rui Strauss DO Hematocrit (Bld) [Volume fraction] 37.1 % Normal 36-46 [facility] Comment on above: Performed By: #### Lazaro RICHEY, CDP #### [facility] [place] [address] Substation Designer: Rui Strauss DO Hemoglobin (Bld) [Mass/Vol] 12.6 g/dL Normal 12.0-16.0 [facility] Comment on above: Performed By: #### Lazaro RICHEY, CDP #### [facility] [place] [address] Substation Designer: Rui Strauss DO Lymphocytes (Bld) [#/Vol] 1.90 10*3/uL Normal 1.0-4.8 [facility] Comment on above: Performed By: #### B ROSSI, CDP #### [facility] [place] [address] Substation Designer: Rui Strauss DO Lymphocytes/100 WBC (Bld) 28 % Normal 24-44 [facility] Comment on above: Performed By: #### B ROSSI, CDP #### [facility] [place] [address] Substation Designer: Rui Strauss DO MCH (RBC) [Entitic mass] 36.5 pg High 26-34 [facility] Comment on above: Performed By: #### B ROSSI, CDP #### [facility] [place] [address] Substation Designer: Rui Strauss DO MCHC (RBC) [Mass/Vol] 34.0 g/dL Normal 31-37 [facility] Comment on above: Performed By: #### Lazaro RICHEY, CDP #### [facility] [address] [place] [address] Substation Designer: Rui Strauss DO MCV (RBC) [Entitic vol] 107.3 fL High 80-100 M [facility] Comment on above: Performed By: #### Lazaro RICHEY, CDP #### [facility] [address] [place] [address] Substation Designer: Rui Strauss DO Monocytes (Bld) [#/Vol] 0.60 10*3/uL Normal 0.1-1.3 [facility] Comment on above: Performed By: #### B ROSSI, CDP #### [facility] [place] [address] Substation Designer: Rui Strauss DO Monocytes/100 WBC (Bld) 8 % High 1-7 M [facility] Comment on above: Performed By: #### B ROSSI, CDP #### [facility] [address] [place] [address] Substation Designer: Rui Strauss DO Neutrophil (Seg) 63 % Normal 36-66 [facility] Comment on above: Performed By: #### Lazaro RICHEY, CDP #### [facility] [address] [place], [place] [address] [address] Substation Designer: Rui Strauss DO Platelet mean volume (Bld) [Entitic vol] 6.5 fL Normal 6.0-12.0 [facility] Comment on above: Performed By: #### Lazaro RICHEY, CDP #### [facility] [address] [place] [address] Substation Designer: Rui Strauss DO Platelets (Bld) [#/Vol] 292 10*3/uL Normal 150-450 [facility] Comment on above: Performed By: #### Lazaro RICHEY, CDP #### [facility] [address] [place] [address] Substation Designer: Rui Strauss DO RBC (Bld) [#/Vol] 3.46 10*6/uL Low 4.0-5.2 [facility] Comment on above: Performed By: #### Lazaro RICHEY, CDP #### [facility] [address] [place] [address] Substation Designer: Rui Strauss DO WBC (Bld) [#/Vol] 6.7 10*3/uL Normal 3.5-11.0 [facility] Comment on above: Performed By: #### B ROSSI, CDP #### [facility] [address] [place] [address] Substation Designer: Rui Strauss DO Abs.Imm.Granulocyte NOT REPORTED Normal 0.00-0.30 [facility] Comment on above: Performed By: #### Lazaro RICHEY, CDP #### [facility] [address] [place] [address] Substation Designer: Rui Strauss DO Auto Diff Performed NOT REPORTED Normal [facility] Comment on above: Performed By: #### B MP, CDP #### [facility] [address] [place] [address] Substation Designer: Rui Strauss DO Immature Granulocyte NOT REPORTED Normal 0 Me [facility] Comment on above: Performed By: #### B MP, CDP #### [facility] [address] [place] [address] Substation Designer: Rui Strauss DO NRBC Automated NOT REPORTED Normal [facility] Comment on above: Performed By: #### B ROSSI, CDP #### [facility] [address] [place] [address] Substation Designer: Rui Strauss DO Platelet Estimate NOT REPORTED Normal [facility] Comment on above: Performed By: #### B ROSSI, CDP #### [facility] [address] [place] [address] Substation Designer: Rui Strauss DO RBC morphology finding Nom (Bld) NOT REPORTED Normal [facility] Comment on above: Performed By: #### B ROSSI, CDP #### [facility] [place] [address] Substation Designer: Rui Strauss DO WBC Morphology NOT REPORTED Normal [facility] Comment on above: Performed By: #### B ROSSI, CDP #### [facility] [place] [address] Substation Designer: Rui Strauss DO MRSA, DNA, Nasalon 1 Specimen Description .NASAL SWAB Normal [facility] Comment on above: Performed By: #### M RSANO #### [facility] [address] [place] [address] Substation Designer: Rui Strauss DO [facility] [address] [place] [address] Substation Designer: Brody Remy MD Microscopic UrinalysisOrdere d By: Taz Gan on 02-15-2021 - [employer] Work Phone: Amorphous, UA NOT REPORTED None [employer] Phone: Bacteria, UA FEW Abnormal None [employer] Phone: Casts UA NOT REPORTED /LPF [employer] Work Phone: Crystals, UA NOT REPORTED None /HPF [facility] Work Phone: [phone] Epithelial Cells UA 10 TO 20 /HPF [facility] [employer] Phone: Interpretation and review of laboratory results Abnormal [employer] Phone: Mucus, UA NOT REPORTED None [facility] [employer] Phone: Other Observations UA NOT REPORTED NOT REQ. M [facility] [employer] Work Phone: RBC, UA 0 TO 2 /HPF [facility] [employer] Work Phone: Renal Epithelial, UA NOT REPORTED 0 /HPF [facility] [employer] Work Phone: Trichomonas, UA NOT REPORTED None [facility] [employer] Phone: WBC, UA 5 TO 10 /HPF [facility] [employer] Work Phone: Yeast, UA NOT REPORTED None [facility] [employer] Phone: [facility] [employer] Work Phone: UA w/Reflex Cultureon 2020 Bilirubin, SemiQt,Ur Negative Normal NEG [facility] Comment on above: Performed By: #### U MICAO, UAX #### [facility] [address] [place] [address] Substation Designer: Rui Strauss DO Blood, Urine Negative Normal NEG [facility] Comment on above: Performed By: #### U MICAO, UAX #### [facility] [address] [facility] [place] [address] Substation Designer: Rui Strauss DO Clarity (U) CLEAR Normal CLEAR [facility] Comment on above: Performed By: #### U MICAO, UAX #### [facility] [address] [facility] [place] [address] Substation Designer: Rui Strauss DO Color (U) YELLOW Normal YEL [facility] Comment on above: Performed By: #### U MICAO, UAX #### [facility] [address] [facility] [place] [address] Substation Designer: Rui Strauss DO Glucose Ql (U) Negative Normal NEG [facility] Comment on above: Performed By: #### U MICAO, UAX #### [facility] [address] [facility] [place] [address] Substation Designer: Rui Strauss DO Ketones Ql (U) Negative Normal NEG [facility] Comment on above: Performed By: #### U MICAO, UAX #### [facility] [address] [facility] [place] [address] Substation Designer: Rui Strauss DO Leukocyte esterase Test strip Ql (U) SMALL Abnormal NEG [facility] Comment on above: Performed By: #### U MICAO, UAX #### [facility] [address] [facility] [place] [address] Substation Designer: Rui Strauss DO Nitrite,Ur Negative Normal NEG [facility] Comment on above: Performed By: #### U MICAO, UAX #### [facility] [address] [facility] [place] [address] Substation Designer: Rui Strauss DO PH,Ur 5.5 Normal 5.0-8.0 [facility] Comment on above: Performed By: #### U SABRAO, UAX #### [facility] [address] [facility] [place] [address] Substation Designer: Rui Strauss DO Protein Ql (U) Negative Normal NEG [facility] Comment on above: Performed By: #### U SABRAO, UAX #### [facility] [address] [place] [address] Substation Designer: Rui Strauss DO Spec. [place],Ur 1.022 Normal 1.000-1.030 [facility] Comment on above: Performed By: #### U SABRAO, UAX #### [facility] [address] [place] [address] Substation Designer: Rui Strauss DO Urobilinogen,Ur Normal Normal NORM [facility] Comment on above: Performed By: #### U JEMIMA, UAX #### [facility] [address] [place] [address] Substation Designer: Rui Strauss DO Comment NOT REPORTED Normal [facility] Comment on above: Performed By: #### U SABRAO, UAX #### [facility] [address] [place] [address] Substation Designer: Rui Strauss DO Urinalysis Reflex to Culture Ordered By: Taz Gan on 02-15-2021 Bilirubin Urine Negative NEGATIVE [employer] Phone: Color, UA YELLOW YELLOW [employer] Work Phone: Glucose, Ur Negative NEGATIVE [employer] Phone: Interpretation and review of laboratory results Abnormal [employer] Phone: Ketones Ql (U) Negative NEGATIVE [employer] Phone: Leukocyte esterase Test strip Ql (U) SMALL Abnormal NEGATIVE [employer] Phone: Nitrite, Urine Negative NEGATIVE [employer] Work Phone: pH, UA 5.5 [employer] Work Phone: Protein, UA Negative NEGATIVE [employer] Phone: Specific [place], UA 1.022 [employer] Work Phone: Turbidity UA CLEAR CLEAR [employer] Work Phone: Urinalysis Comments NOT REPORTED [facility] [employer] Work Phone: Urine Hgb Negative NEGATIVE [employer] Phone: Urobilinogen, Urine Normal Normal [facility] [employer] Phone: [employer] Phone: Urinalysis,Microon 1 ----- Normal [facility] Comment on above: Performed By: #### AWAIS ALMAZANX #### [facility] [address] [place] [address] Substation Designer: Rui Strauss DO Bacteria FEW Abnormal NONE [facility] Comment on above: Performed By: #### AWAIS ALMAZANX #### [facility] [address] [place] [address] Substation Designer: Rui Strauss DO Epithelial cells LM Ql (Urine sed) 10 TO 20 Normal [facility] Comment on above: Performed By: #### AWAIS ALMAZANX #### [facility] [address] [place] [address] Substation Designer: Rui Strauss DO Urine RBC's 0 TO 2 Normal [facility] Comment on above: Performed By: #### AWAIS ALMAZANX #### [facility] [address] [facility] [place] [address] Substation Designer: Rui Strauss DO Urine WBC's 5 TO 10 Normal [facility] Comment on above: Performed By: #### U SABRAO, UAX #### [facility] [address] [facility] [place] [address] Substation Designer: Rui Strauss DO Amorphous sediment LM Ql (Urine sed) NOT REPORTED Normal NONE [facility] Comment on above: Performed By: #### U JEMIMA UAX #### [facility] [place] [address] Substation Designer: Rui Strauss DO Casts NOT REPORTED Normal [facility] Comment on above: Performed By: #### Tony ONOFRE UAX #### [facility] [place] [address] Substation Designer: Rui Strauss DO Crystals LM Nom (Urine sed) NOT REPORTED Normal NONE [facility] Comment on above: Performed By: #### U JEMIMA, UAX #### [facility] [address] [facility] [place] [address] Substation Designer: Rui Strauss DO Epithelial, Renal NOT REPORTED Normal 0 [facility] Comment on above: Performed By: #### U JEMIMA, UAX #### [facility] [address] [facility] [place] [address] Substation Designer: Rui Strauss DO Mucus Strands NOT REPORTED Normal NONE [facility] Comment on above: Performed By: #### U JEMIMA, UAX #### [facility] [address] [facility] [place] [address] Substation Designer: Rui Strauss DO Other Observations NOT REPORTED Normal NREQ [facility] Comment on above: Performed By: #### U MICAO, UAX #### [facility] [address] [facility] [place] [address] Substation Designer: Rui Strauss DO Trichomonas NOT REPORTED Normal NONE [facility] Comment on above: Performed By: #### U MICAO, UAX #### [facility] [address] [facility] [place] [address] Substation Designer: Rui Strauss DO Yeast NOT REPORTED Normal NONE [facility] Comment on above: Performed By: #### U MICAO, UAX #### [facility] [address] [facility] [place] [address] Substation Designer: Rui Strauss DO EKG 12 Leadon 05-21-2020 Atrial Rate 66 BPM [place] P [place] 54 degrees [place] P-R Interval 132 ms [place] Q-T Interval 420 ms [place] QRS Duration 100 ms [place] QTc Calculation ([place]az[place]) 440 ms [place] R [place] -89 degrees [facility], [place] T [place] -20 degrees [place] Urea nitrogen [Mass/Vol] Normal sinus rhythm Left axis deviation Incomplete right bundle branch block ST & T wave abnormality, consider anterolateral ischemia Abnormal ECG No previous ECGs available [place] Ventricular Rate 66 BPM [place], [facility] Incoming Ekg Results From [place] - 05/21/2020 9:08 AM EST Normal sinus rhythm Left axis deviation Incomplete right bundle branch block ST & T wave abnormality, consider anterolateral ischemia Abnormal ECG No previous ECGs available [place] MRSA DNA Probe, Nasalon - MRSA, DNA, Nasal NEGATIVE: MRSA DNA not detected by nucleic acid amplification. NEGATIVE: MRSA DNA not detected by nucleic acid amplificati [place] Comment on above: Results should be used as an adjunct to nosocomial control efforts to identify patients needing enhanced precautions. The test is not intended to identify patients with staphylococcal infections. Results should not be used to guide or monitor treatment for MRSA infections. Specimen Description .NASAL SWAB [place] MRSA, DNA, Nasalon 0 MRSA, DNA, Nasal NEGATIVE: MRSA DNA not detected by nucleic acid amplification. Normal NMRSAA [facility] Comment on above: Result Comment: Results should be used as an adjunct to nosocomial control efforts to identify patients needing enhanced precautions. The test is not intended to identify patients with staphylococcal infections. Results should not be used to guide or monitor treatment for MRSA infections. Performed By: #### M RSANO #### [facility] [address] [place] [address] Substation Designer: Rui Strauss DO [facility] [address] [place] [address] Substation Designer: Brody Remy MD Basic Metabolic Panelon 11-0 Anion gap [Moles/Vol] 8 mmol/L Low 9 - 17 mmol/L [place] Bun/Cre Ratio NOT REPORTED [place] Calcium [Mass/Vol] 9.1 mg/dL 8.6 - 10. 4 mg/dL [place] Chloride [Moles/Vol] 102 mmol/L 98 - 10 7 mmol/L [place] CO2 [Moles/Vol] 28 mmol/L 20 - 31 mmol/L [place] Creatinine [Mass/Vol] 0.53 mg/dL 0.5 - 0.9 mg/dL [place] GFR >60 >60 mL/min [place] GFR Non- >60 >60 mL/min [place] GFR/1.73 sq M predicted among non-blacks MDRD (S/P/Bld) [Vol rate/Area] NOT REPORTED [place] GFR/1.73 sq M predicted among non-blacks MDRD (S/P/Bld) [Vol rate/Area] [place] Comment on above: Average GFR for 70 o r more years old: 75 mL/min/1.73sq m Chronic Kidney Disease: <60 mL/min/1.73sq m Kidney failure: <15 mL/min/1.73sq m eGFR calculated using average adult body mass. Additional eGFR calculator available at: http://www.[employer]/multiple_crcl_2012.htm Glucose [Mass/Vol] 116 mg/dL High 70 - 99 mg/dL [place] Interpretation and review of laboratory results Abnormal [place] Potassium [Moles/Vol] 4.3 mmol/L 3.7 - 5.3 mmol/L [place] Sodium [Moles/Vol] 138 mmol/L 135 - 144 mmol/L [place] Urea nitrogen [Mass/Vol] 12 mg/dL 8 - 23 mg/dL [place] Basic Metabolic Profon 05-19 (cont.) Normal [facility] Comment on above: Result Comment: Aver age GFR for 70 or more years old: 75 mL/min/1.73sq m Chronic Kidney Disease: <60 mL/min/1.73sq m Kidney failure: <15 mL/min/1.73sq m eGFR calculated using average adult body mass. Additional eGFR calculator available at: http://www.[employer]/multiple_crcl_2012.htm Performed By: #### C CHARLY, BMP #### [facility] [address] [place] [address] Substation Designer: Rui Strauss DO Anion gap [Moles/Vol] 8 mmol/L Low 9-17 [facility] Comment on above: Performed By: #### C CHARLY, BMP #### [facility] [place] [address] Substation Designer: Rui Strauss DO Calcium [Mass/Vol] 9.1 mg/dL Normal 8.6-10.4 [facility] Comment on above: Performed By: #### C CHARLY, BMP #### [facility] [place] [address] Substation Designer: Fanelly, Rui, DO Chloride [Moles/Vol] 102 mmol/L Normal 98-107 [facility] Comment on above: Performed By: #### C DP, BMP #### [facility] [address] [place] [address] Substation Designer: Rui Strauss, DO CO2 [Moles/Vol] 28 mmol/L Normal 20-31 [facility] Comment on above: Performed By: #### C DP, BMP #### [facility] [place] [address] Substation Designer: Rui Strauss, DO Creatinine [Mass/Vol] 0.53 mg/dL Normal 0.50-0.90 [facility] Comment on above: Performed By: #### C DP, BMP #### [facility] [address] [place] [address] Substation Designer: Rui Strauss, DO GFR, Amer >60 Normal >60 [facility] Comment on above: Performed By: #### C DP, BMP #### [facility] [place] [address] Substation Designer: Rui Strauss DO GFR,non Amer >60 Normal >60 [facility] Comment on above: Performed By: #### C DP, BMP #### [facility] [address] [place] [address] Substation Designer: Rui Strauss DO Glucose [Mass/Vol] 116 mg/dL High 70-99 [facility] Comment on above: Performed By: #### C DP, BMP #### [facility] [address] [place] [address] Substation Designer: Rui Strauss DO Potassium [Moles/Vol] 4.3 mmol/L Normal 3.7-5.3 [facility] Comment on above: Performed By: #### C DP, BMP #### [facility] [address] [facility] [place] [address] Substation Designer: Rui Strauss DO Sodium [Moles/Vol] 138 mmol/L Normal 135-144 [facility] Comment on above: Performed By: #### C DP, BMP #### [facility] [address] [facility] [place] [address] Substation Designer: Rui Strauss DO Urea nitrogen [Mass/Vol] 12 mg/dL Normal 8-23 [facility] Comment on above: Performed By: #### C DP, BMP #### [facility] [address] [facility] [place] [address] Substation Designer: Rui Strauss DO BUN/CRE Ratio NOT REPORTED Normal 9-20 [facility] Comment on above: Performed By: #### C DP, BMP #### [facility] [address] [facility] [place] [address] Substation Designer: uRi Strauss DO Staging: NOT REPORTED Normal [facility] Comment on above: Performed By: #### C DP, BMP #### [facility] [address] [facility] [place] [address] Substation Designer: Rui Strauss DO CBC Auto Differentialon 11-0 Basophils (Bld) [#/Vol] 0.00 10*3/uL [place] Basophils/100 WBC (Bld) 1 % 0 - 2 % [place] Differential Type NOT REPORTED [place] Eosinophils (Bld) [#/Vol] 0.10 10*3/uL [place] Eosinophils/100 WBC (Bld) 2 % 0 - 4 % [place] Erythrocyte distribution width (RBC) [Ratio] 15.8 % High 11.5 - 14.9 % [place] Hematocrit (Bld) [Volume fraction] 41.2 % 36 - 46 % [place] Hemoglobin (Bld) [Mass/Vol] 14.0 g/dL 12 - 16 g/dL [place] Interpretation and review of laboratory results Abnormal [place] Lymphocytes (Bld) [#/Vol] 1.90 10*3/uL [place] Lymphocytes/100 WBC (Bld) 26 % 24 - 44 % [place] MCH (RBC) [Entitic mass] 32.8 pg 26 - 34 pg [place] MCHC (RBC) [Mass/Vol] 34.0 g/dL 31 - 37 g/dL [place] MCV (RBC) [Entitic vol] 96.3 fL 80 - 100 fL [place] Monocytes (Bld) [#/Vol] 0.80 10*3/uL [place] Monocytes/100 WBC (Bld) 10 % High 1 - 7 % [place] Platelet mean volume (Bld) [Entitic vol] 6.5 fL 6 - 12 fL [place] Platelets (Bld) [#/Vol] NOT REPORTED [place] Platelets (Bld) [#/Vol] 299 10*3/uL [place] RBC (Bld) [#/Vol] 4.28 10*6/uL 4 - 5.2 m/uL [place] RBC morphology finding Nom (Bld) NOT REPORTED [place] Segmented neutrophils/100 WBC (Bld) 61 % 36 - 66 % [place] Segs Absolute 4.50 [place] WBC (Bld) [#/Vol] 7.3 10*3/uL [place] WBC (Bld) [#/Vol] NOT REPORTED per 100 WBC [place] WBC Morphology NOT REPORTED [place] CBC with Diffon 05-19-2020 Abs. Basophil 0.00 k/uL Normal 0.0-0.2 [facility] Comment on above: Performed By: #### C DP, BMP #### [facility] [address] [place] [address] Substation Designer: Rui Strauss DO Abs.Neutrophil (Seg) 4.50 k/uL Normal 1.3-9.1 [facility] Comment on above: Performed By: #### C DP, BMP #### [facility] [address] [place] [address] Substation Designer: Rui Strauss DO Basophils/100 WBC (Bld) 1 % Normal 0-2 [facility] Comment on above: Performed By: #### C DP, BMP #### [facility] [place] [address] Substation Designer: Rui Strauss DO Eosinophils (Bld) [#/Vol] 0.10 10*3/uL Normal 0.0-0.4 [facility] Comment on above: Performed By: #### C DP, BMP #### [facility] [place] [address] Substation Designer: Rui Strauss DO Eosinophils/100 WBC (Bld) 2 % Normal 0-4 [place] [facility] Comment on above: Performed By: #### C DP, BMP #### [facility] [place] [address] Substation Designer: Rui Strauss DO Erythrocyte distribution width (RBC) [Ratio] 15.8 % High 11.5-14.9 [facility] Comment on above: Performed By: #### C DP, BMP #### [facility] [place] [address] Substation Designer: Rui Strauss DO Hematocrit (Bld) [Volume fraction] 41.2 % Normal 36-46 [facility] Comment on above: Performed By: #### C DP, BMP #### [facility] [place] [address] Substation Designer: Rui Strauss DO Hemoglobin (Bld) [Mass/Vol] 14.0 g/dL Normal 12.0-16.0 [facility] Comment on above: Performed By: #### C DP, BMP #### [facility] [place] [address] Substation Designer: Rui Strauss DO Lymphocytes (Bld) [#/Vol] 1.90 10*3/uL Normal 1.0-4.8 [facility] Comment on above: Performed By: #### C DP, BMP #### [facility] [address] [place] [address] Substation Designer: Rui Strauss DO Lymphocytes/100 WBC (Bld) 26 % Normal 24-44 [facility] Comment on above: Performed By: #### C CHARLY, BMP #### [facility] [address] [place] [address] Substation Designer: Rui Strauss DO MCH (RBC) [Entitic mass] 32.8 pg Normal 26-34 [facility] Comment on above: Performed By: #### C DP, BMP #### [facility] [address] [place] [address] Substation Designer: Rui Strauss DO MCHC (RBC) [Mass/Vol] 34.0 g/dL Normal 31-37 [facility] Comment on above: Performed By: #### C DP, BMP #### [facility] [address] [place] [address] Substation Designer: Rui Strauss DO MCV (RBC) [Entitic vol] 96.3 fL Normal 80-100 M [facility] Comment on above: Performed By: #### C DP, BMP #### [facility] [address] [place] [address] Substation Designer: Rui Strauss DO Monocytes (Bld) [#/Vol] 0.80 10*3/uL Normal 0.1-1.3 [facility] Comment on above: Performed By: #### C DP, BMP #### [facility] [address] [place] [address] Substation Designer: Rui Strauss DO Monocytes/100 WBC (Bld) 10 % High 1-7 M [facility] Comment on above: Performed By: #### C DP, BMP #### [facility] [address] [place] [address] Substation Designer: Rui Strauss DO Neutrophil (Seg) 61 % Normal 36-66 [facility] Comment on above: Performed By: #### C DP, BMP #### [facility] [address] [facility] [place] [address] Substation Designer: Rui Strauss DO Platelet mean volume (Bld) [Entitic vol] 6.5 fL Normal 6.0-12.0 [facility] Comment on above: Performed By: #### C DP, BMP #### [facility] [place] [address] Substation Designer: Rui Strauss DO Platelets (Bld) [#/Vol] 299 10*3/uL Normal 150-450 [facility] Comment on above: Performed By: #### C DP, BMP #### [facility] [address] [facility] [place] [address] Substation Designer: Rui Strauss DO RBC (Bld) [#/Vol] 4.28 10*6/uL Normal 4.0-5.2 [facility] Comment on above: Performed By: #### C DP, BMP #### [facility] [address] [place] [address] Substation Designer: Rui Strauss DO WBC (Bld) [#/Vol] 7.3 10*3/uL Normal 3.5-11.0 [facility] Comment on above: Performed By: #### C DP, BMP #### [facility] [address] [place] [address] Substation Designer: Rui Strauss DO Abs.Imm.Granulocyte NOT REPORTED Normal 0.00-0.30 [facility] Comment on above: Performed By: #### C DP, BMP #### [facility] [address] [place] [address] Substation Designer: Rui Strauss DO Auto Diff Performed NOT REPORTED Normal [facility] Comment on above: Performed By: #### C DP, BMP #### [facility] [address] [place] [address] Substation Designer: Rui Strauss DO Immature Granulocyte NOT REPORTED Normal 0 [facility] Comment on above: Performed By: #### C DP, BMP #### [facility] [address] [place] [address] Substation Designer: Rui Strauss DO NRBC Automated NOT REPORTED Normal [facility] Comment on above: Performed By: #### C DP, BMP #### [facility] [address] [place] [address] Substation Designer: Rui Strauss DO Platelet Estimate NOT REPORTED Normal [facility] Comment on above: Performed By: #### C DP, BMP #### [facility] [address] [place] [address] Substation Designer: Rui Strauss DO RBC morphology finding Nom (Bld) NOT REPORTED Normal [facility] Comment on above: Performed By: #### C DP, BMP #### [facility] [address] [place] [address] [place] [address] Substation Designer: Rui Strauss DO WBC Morphology NOT REPORTED Normal [facility] Comment on above: Performed By: #### C DP, BMP #### [facility] [address] [place] [address] Substation Designer: Rui Strauss DO MRSA, DNA, Nasalon 0 Specimen Description .NASAL SWAB Normal [facility] Comment on above: Performed By: #### M RSANO #### [facility] [address] [place] [address] Substation Designer: Rui Strauss DO [address] [address] Substation Designer: Brody Remy MD Microscopic Urinalysison Amorphous, UA NOT REPORTED None [place] Bacteria, UA FEW Abnormal None [facility], [place] Casts UA NOT REPORTED /LPF [place] Crystals, UA NOT REPORTED None /HPF [place] Epithelial Cells UA 2 TO 5 /HPF [place] Interpretation and review of laboratory results Abnormal [place] Mucus, UA NOT REPORTED None [place] Other Observations UA NOT REPORTED NOT REQ. [facility], [place] RBC (U) [#/Vol] 0 TO 2 /HPF [place] Renal Epithelial, UA NOT REPORTED 0 /HPF [facility], [place] Trichomonas, UA NOT REPORTED None [place] WBC, UA 2 TO 5 /HPF [place] Yeast, UA NOT REPORTED None [place] - [facility], [place] Otheron 05-19-2020 Immature granulocytes (Bld) [#/Vol] NOT REPORTED [place] UA w/Reflex Cultureon 2019 Acetoacetic Acid,Ur Negative Normal NEG [facility] Comment on above: Performed By: #### U AX, UMICAO #### [facility] [address] [place] [address] Substation Designer: Rui Strauss DO Bilirubin, SemiQt,Ur Negative Normal NEG [facility] Comment on above: Performed By: #### U AX UMYAMILKAO #### [facility] [address] [place] [address] Substation Designer: Rui Strauss DO Color (U) YELLOW Normal YEL [facility] Comment on above: Performed By: #### U AXMICKIO #### [facility] [address] [place] [address] Substation Designer: Rui Strauss DO Glucose Ql (U) Negative Normal NEG [facility] Comment on above: Performed By: #### MICKI ACO #### [facility] [address] [place] [address] Substation Designer: Rui Strauss DO Hemoglobin, Ur Negative Normal NEG [facility] Comment on above: Performed By: #### U AXMICKIO #### [facility] [address] [place] [address] Substation Designer: Rui Strauss DO Leukocyte esterase Test strip Ql (U) TRACE Abnormal NEG [facility] Comment on above: Performed By: #### U AX UMICAO #### [facility] [address] [place] [address] Substation Designer: Rui Strauss DO Nitrite,Ur Negative Normal NEG [facility] Comment on above: Performed By: #### U AX UMICAO #### [facility] [address] [place] [address] Substation Designer: Rui Strauss DO PH,Ur 6.5 Normal 5.0-8.0 [facility] Comment on above: Performed By: #### U AXKIRSTEN #### [facility] [address] [place] [address] Substation Designer: Rui Strauss DO Protein Ql (U) Negative Normal NEG [facility] Comment on above: Performed By: #### KIRSTEN AC #### [facility] [place] [address] Substation Designer: Rui Strauss DO Spec. [place],Ur 1.011 Normal 1.000-1.030 [facility] Comment on above: Performed By: #### KIRSTEN AC #### [facility] [address] [place] [address] Substation Designer: Rui Strauss DO Turbidity CLEAR Normal CLEAR [facility] Comment on above: Performed By: #### KIRSTEN AC #### [facility] [address] [place] [address] Substation Designer: Rui Strauss DO Urobilinogen,Ur Normal Normal NORM [facility] Comment on above: Performed By: #### KIRSTEN AC #### [facility] [address] [place] [address] Substation Designer: Rui Strauss DO Comment NOT REPORTED Normal [facility] Comment on above: Performed By: #### U KIRSTEN PAIGE #### [facility] [address] [place] [address] Substation Designer: Rui Strauss DO Urinalysis Reflex to Culture on 05-19-2020 Bilirubin Urine Negative NEGATIVE [facility] [place], [place] Color, UA YELLOW YELLOW [facility] [place], [place] Glucose, Ur Negative NEGATIVE [facility] [place] Interpretation and review of laboratory results Abnormal [facility] [place] Ketones Ql (U) Negative NEGATIVE [facility] [place] Leukocyte esterase Test strip Ql (U) TRACE Abnormal NEGATIVE [facility], [place] Nitrite, Urine Negative NEGATIVE [facility], [place] pH, UA 6.5 [place] Protein (U) [Mass/Vol] Negative NEGATIVE [facility], [place] Specific [place], UA 1.011 [place], [place] Turbidity UA CLEAR CLEAR [place] Urinalysis Comments NOT REPORTED [place], [place] Urine Hgb Negative NEGATIVE [place] Urobilinogen, Urine Normal Normal [place] Urinalysis,Microon 0 ----- Normal [facility] Comment on above: Performed By: #### KIRSTEN AC #### [facility] [address] [place] [address] Substation Designer: Rui Strauss DO Bacteria FEW Abnormal NONE [facility] Comment on above: Performed By: #### KIRSTEN AC #### [facility] [address] [place] [address] Substation Designer: Rui Strauss DO Epithelial cells LM Ql (Urine sed) 2 TO 5 Normal [facility] Comment on above: Performed By: #### KIRSTEN AC #### [facility] [address] [place] [address] Substation Designer: Rui Strauss DO Urine RBC's 0 TO 2 Normal [facility] Comment on above: Performed By: #### KIRSTEN AC #### [facility] [address] [place] [address] Substation Designer: Rui Strauss DO Urine WBC's 2 TO 5 Normal [facility] Comment on above: Performed By: #### KIRSTEN AC #### [facility] [address] [place] [address] Substation Designer: Rui Strauss DO Amorphous sediment LM Ql (Urine sed) NOT REPORTED Normal NONE [facility] Comment on above: Performed By: #### U AX, UMICAO #### [facility] [address] [facility] [place] [address] Substation Designer: Rui Strauss DO Casts NOT REPORTED Normal [facility] Comment on above: Performed By: #### U AX, UMICAO #### [facility] [address] [facility] [place] [address] Substation Designer: Rui Strauss DO Crystals LM Nom (Urine sed) NOT REPORTED Normal NONE [facility] Comment on above: Performed By: #### U AX, UMICAO #### [facility] [address] [facility] [place] [address] Substation Designer: Rui Strauss DO Epithelial, Renal NOT REPORTED Normal 0 [facility] Comment on above: Performed By: #### U AX, UMICAO #### [facility] [address] [facility] [place] [address] Substation Designer: Rui Strauss DO Mucus Strands NOT REPORTED Normal NONE [facility] Comment on above: Performed By: #### U AX, UMICAO #### [facility] [address] [facility] [place] [address] Substation Designer: Rui Strauss DO Other Observations NOT REPORTED Normal [facility] Comment on above: Performed By: #### U AX, UMICAO #### [facility] [address] [facility] [place] [address] Substation Designer: Rui Strauss DO Trichomonas NOT REPORTED Normal NONE [facility] Comment on above: Performed By: #### U AX, UMICAO #### [facility] [address] [facility] [place] [address] Substation Designer: Rui Strauss DO Yeast NOT REPORTED Normal NONE [facility] Comment on above: Performed By: #### KIRSTEN AC #### [facility] [address] [place] [address] Substation Designer: Rui Strauss DO Vital Signs Date Time Vital Sign Value Performing Clinician Gabriele pena 02-15-2021 11:50-0400 Body height 152.4 cm [facility] Phone: 02-15-2021 11:50-0400 Body mass index (BMI) [Ratio] 31.25 kg/m2 [facility] Phone: 02-15-2021 11:50-0400 Body temperature 98.01 [degF] [facility] Phone: 02-15-2021 11:50-0400 Body weight 72.58 kg [facility] 1 [facility] Phone: 02-15-2021 11:50-0400 Diastolic blood pressure 61 mm[Hg] [facility] Phone: 02-15-2021 11:50-0400 Heart rate 66 /min [facility] 1 [facility] Phone: 02-15-2021 11:50-0400 Respiratory rate 18 /min [facility] 1 [facility] Phone: 02-15-2021 11:50-0400 SaO2% (BldA) [Mass fraction] 100 % [facility] 1 [facility] Phone: 02-15-2021 11:50-0400 Systolic blood pressure 132 mm[Hg] [facility] 1 [facility] Phone: 05-19-2020 13:09-0500 BMI (Body Mass Index) 33.59 kg/m2 [facility] 1 [facility], [place] 05-19-2020 13:09-0500 Body Temperature 98.8 [degF] [facility] [address] [facility], [place] 05-19-2020 13:09-0500 Body weight 78.02 kg [facility] 1 [facility] , [place] 05-19-2020 13:09-0500 BP Diastolic 69 mm[Hg] [facility] 1 [facility] , [place] 05-19-2020 13:090500 BP Systolic 139 mm[Hg] [facility] 1 [facility] , [place] 05-19-2020 13:090500 Height 152.4 cm [facility] 1 [facility] , [place] 05-19-2020 13:09-0500 Pulse (Heart Rate) 70 /min [facility] 1 [facility], [place] 05-19-2020 13:090500 Pulse Oximetry 95 % [facility] 1 [facility] , [place] 05-19-2020 13:09-0500 Respiratory Rate 20 /min [facility] [address] [facility], [place] Encounters Encounter Date Encounter Type Care Provider [...] Start: 02-15-2021 End: 02-20-2021 ambulatory CHANEL FUENTES [facility] Start: 02-15-2021 End: 02-19-2021 Subsequent hospital visit by physician Navjot Tello Rm 1 [facility] Pre-Admit Testing Start: 05-19-2020 End: 05-24-2020 ambulatory CHANEL FUENTES [facility] Start: 05-19-2020 End: 05-23-2020 Subsequent [...] Author Start: 02-15-2022 Creatinine [facility]: Start: 02-15-2022 Potassium monitoring Potassium monit [facility] [employer] Work Phone: Start: 05-19-2021 Creatinine measurement Creatinine mo [place] Start: 05-19-2021 Potassium monitoring Potassium monit [place], [place] Start: 03-16-2021 Influenza vaccination Flu vaccine (# 1) [facility] Phone: Start: 03-16-2021 End: 03-16-2021 Patient encounter procedure 03/16/2021 Office Visit Orthopedic Surgery Chanel Fuentes MD [address] [address] [phone] [facility] Start: 03-01-2021 End: 03-01-2021 Admission to same day surgery center 03/01/2021 Surgery IP Unit Chanel Fuentes MD [address] [address] [phone] KNEE TOTAL ARTHROPLASTY [facility] Comment on above: KNEE TOTAL ARTHROPLA STY Start: 03-01-2021 Subsequent hospital visit by physician 03/01/2021 Hospital Encounter IP Unit Chanel Fuentes MD [address] [id number] [facility] Start: 06-16-2020 End: 06-16-2020 Office Visit 06/16/2020 Office Visit Orthopedic Surgery Chanel Fuentes MD [address] [address] [phone] [facility] Start: 06-01-2020 End: 06-01-2020 Hospital Encounter [facility] Comment on above: KNEE TOTAL ARTHROPLA [facility] Start: 05-28-2020 End: 05-28-2020 Appointment 05/28/2020 Appointment Pre-Admission Testing [facility] PRE-ADMIT TESTING Start: 03-29-2020 Annual Wellness Visi t (AWV) Annual Wellness Visit (AWV) [place] Start: 03-16-2020 Influenza vaccination Flu vaccine (# 1) [place] Start: 11-18-1998 Screening for osteoporosis DEXA (modify frequency per FRAX score) [place] Start: 11-18-1993 Shingles Vaccine (1 of 2) Shingles Vaccine (1 of 2) [place] Start: 11-18-1962 DTaP/Tdap/Td vaccine (1 - Tdap) DTaP/Tdap/Td vaccine (1 - Tdap) [place] Start: 11-18-1953 Lipid panel Lipid screen [place], [place] Start: 1945 Hepatitis C screening Hepatitis C sc reen [facility] Work Phone: Immunizations Immunization Date Immunization Notes Care Provider Fa anjum 05-13-2004 influenza virus vacc ine, unspecified formulation [facility] 1 [place], [place] Payers Date Payer Category Payer Medicare [id number] 1959 Private Health Insurance CLI [id number] 1959 Self-pay [id number] 1945 Unknown [id number] 2.16.8 [id number] 1945 Unknown [id number] 2.16.8 [id number] 1945 Unknown [id number] 2.16.84 [id number] 1945 Unknown [id number] 2.16.84 [id number] 1945 Unknown [id number] 2.16.84 [id number] 1945 Unknown [id number] 2.16.84 [id number] 1943 Unknown [id number] 2.16.84 [id number] 1943 Unknown [id number] 2.16.84 [id number] 1945 Unknown [id number] 2.16.84 [id number] 1943 Unknown [id number] 2.16.84 [id number] 1945 Unknown [id number] 2.16.84 [id number] 1945 Unknown [id number] 2.16.84 [id number] Social History Date Type Detail Facility Start: 05-19-2020 End: 02-15-2021 Tobacco smoking status NHIS Never smoker [place] Start: 05-19-2020 End: 02-15-2021 Tobacco use and exposure Never used [place] Start: 05-19-2020 End: 02-15-2021 Alcohol intake Lifetime non-drinker (finding) [place] Start: 05-19-2020 History SDOH Alcohol Frequency 1 [place] Start: 1945 Sex Assigned At Not on file [place] Exposure to SARS-CoV -2 (event) Not sure [place] Hospital Discharge instructions 02-15-2021 Instructions Note [...] powder, deodorant, jewelry, piercings, perfume, makeup, nail korean, hair accessories, or hair spray on the [...] hospital. The Day of Surgery: Arrive at [facility] Surgery Entrance at the time directed by your surgeon and check in at the desk. If you have a living will or healthcare power of electromechanical equipment assembler, please bring a copy. You will be taken to the pre-op holding area where you will be prepared for surgery. A physical assessment will be performed by a nurse practitioner or housekeeping aide. Your IV will be started and you [...] in recovery room. documented in this encounter [facility] Phone: History of Present illness Narrative 02-15-2021 Renetta Vieyra RN - 02/15/2021 11:30 AM EDT Note Date & Type Note Facility 02-15-2021 History of Present illness Narrative Dr. Gan, anesthesia, was contacted and informed of the patient's planned surgery, history, and unconfirmed abnormal EKG results from EKG done today in [facility]. Also reviewed stress test and echo from 05/2020 from [facility]. Medical clearance required. Surgery scheduling will notify Dr. Fuentes's office who will be responsible for making sure the clearance is obtained and is in the chart for surgery. documented in this encounter [facility] Phone: Discharge Instructions * Instructions* Amelia Renee [...] powder, deodorant, jewelry, piercings, perfume, makeup, nail korean, hair accessories, or hair spray on the day of surgery. Wear loose comfortable clothing. 4. Leave your valuables at home. Bring a storage case for any glasses/contacts. The Day of Surgery: Arrive at [facility] Surgery Entrance at the time directed by your surgeon and check in at the desk. If you have a living will or healthcare power of electromechanical equipment assembler, please bring a copy. You will be taken to the pre-op holding area where you will be prepared for surgery. A physical assessment will be performed by a nurse practitioner or housekeeping aide. Your IV will be started and you [...] EKG results from EKG done today in [facility]. Medical clearance required. Surgery scheduling will notify Dr. Fuentes's office who will be responsible for making sure the clearance is obtained and is in the chart for surgery. 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 [employer] [facility]. provides no warranty or guarantee of the accuracy or completeness of information in this document.
--- NOTE | 2024-04-14 12:16 | XR_ITS ---
The [address] [address] Patient Name: JERRY FINNEY MRN: [id number] date: 1945 Sex: F Assigned Patient Location: [place] Current Patient Location: [place] Accession/Order Number: [id number] Exam Date: 04/14/2024 12:45 Report Date: 04/14/2024 13:08 At the request of: AMBIKA PANDA Procedure: XR femur RT 2V PROCEDURE: XR femur RT 2V HISTORY: Fracture COMPARISON: None. FINDINGS: BONES:Acute fracture involving base of femoral neck versus intertrochanteric. Separate fragment involving superior tip of greater trochanter. Approximately 90 degrees angulation between femoral neck and femoral shaft. Femoral head remains seated within the acetabulum. Moderate degenerative changes of the knee joint. SOFT TISSUES:No visible soft tissue swelling. EFFUSION:None visible. OTHER: Negative. XR/XR femur RT 2V IMPRESSION: 1. Acute, angulated/displaced base of neck versus intertrochanteric fracture of right femur. 2. 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 Electronically authenticated by: SURYA MONTEMAYOR Date: 04/14/2024 13:08
--- OUTSIDE RECORDS SUMMARY | 2024-04-14 12:43 | XMS_ITS | CCD ---
Author Organization [facility] CliniSyid Care Team Providers Care [employer]ier [employer] Name Role Phone Marisel Gibbs Primary Care [...] (antibiotic) (1 source) cefTRIAXone Drug Allergy [address] [facility] Diclofenac / miSOPROStol (1 source) Diclofenac / miSOPROStol Drug Allergy [address] [facility] Penicillins (antibiotic) (1 source) Penicillins Drug Allergy 2 [facility] (1 source) cefTRIAXone Drug Allergy 0 [place], [place] (1 source) Diclofenac / miSOPROStol Drug Allergy 0 [place] (1 source) Penicillins Propensity to adverse reactions to drug 2 [place], [place] (2 sources) Iodides Propensity to adverse reactions to drug 0 [place] (2 sources) cefTRIAXone Drug Allergy 5 [facility] (1 source) Diclofenac / miSOPROStol Drug Allergy 3 [facility] (2 sources) Iodine (And Iodine Containting Drugs) Drug allergy (disorder) 4 [facility] (2 sources) Penicillin Drug Allergy [facility] Medications Current Medications Medication [...] Onset: 06-01-2022 Episodic Other aftercare (1 source) retirement (current) use of aspirin; 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 Admission #: [id number] Family : Order #: [id number] CLICK HERE TO VIEW EXAM RADIOLOGY REPORT [...] QUALITY OF STUDY: Good. PERFUSION DEFECT: LOCATION: [place]. SIZE: Small (1-2 segments). SEVERITY: Mild. TYPE: [...] Chadwick MD on 09/28/2022 at 09:20 Normal [facility] ECHOCARDIO M/2D COMPLETEon 0 09-14-2022 ECHOCARDIO M/2D COMPLETE Patient: JERRY FINNEY Exam Date: 09/14/2022 : 1945 Gender:F Ordering : DR MARISEL GIBBS . Admission #: [id number] Family : Order #: [id number] CLICK HERE TO VIEW EXAM ECHOCARDIOGRAM REPORT [...] Klein M.D. on 09/14/2022 at 14:51 Normal [facility] MG MAMM SCREEN 3D MONCHO CADon 09-14-2022 MG MAMM SCREEN 3D MONCHO CAD Patient: JERRY FINNEY Exam Date: 09/14/2022 : 1945 Gender:F Ordering : DR MARISEL GIBBS . Admission #: [id number] Family : Order #: [id number] CLICK HERE TO VIEW EXAM RADIOLOGY REPORT [...] breast cancer at age 63. LOCATION: [facility] BREAST COMPOSITION: Heterogeneously dense,which may [...] MD on 09/14/2022 at 12:04 Normal [facility] BNPon 08-30-2022 Natriuretic peptide B (Bld) [Mass/Vol] 284.0 pg/mL Normal <=1,800.0 [facility] Comment on above: Performed By: #### L IPID, CMP, BNP, TSH, T7 #### [facility] [address] [address] [address] Rito Madison CBC AUTO DIFFon 08-30-2022 BASO # 0.0 103/ul Normal 0.0-0.1 [facility] Comment on above: Performed By: #### C BC ####[facility] [address] [address]Dr. Rito Madison Basophils/100 WBC (Bld) 0.4 % Normal 0.2-2.0 [facility] Comment on above: Performed By: #### C BC ####[facility] [address] [address]Dr. Rito Madison EO # 0.1 103/ul Normal 0.0-0.7 [facility] Comment on above: Performed By: #### C BC ####[facility] [address] [address]Dr. Rito Madison Eosinophils/100 WBC (Bld) 1.3 % Normal 0.9-7.0 [facility] Comment on above: Performed By: #### C BC ####[facility] [address] [place], [place] [address]Dr. Rito Madison Erythrocyte distribution width (RBC) [Ratio] 14.5 % Normal 11.0-15.0 [facility] Comment on above: Performed By: #### C BC ####[facility] [address] [place], [place] [id number]. Rito Madison Hematocrit (Bld) [Volume fraction] 43.7 % Normal 36.0-48.0 [facility] Comment on above: Performed By: #### C BC ####[facility] [address] [place], [place] [address]Dr. Rito Madison Hemoglobin (Bld) [Mass/Vol] 14.2 g/dL Normal 12.0-16.0 [facility] Comment on above: Performed By: #### C BC ####[facility] [address] [address]Dr. Rito Madison IG # 0.02 10e3/ul Normal 0.00-0.03 [facility] Comment on above: Performed By: #### C BC ####[facility] [address] [place], [place] [address]Dr. Rito Madison IG % 0.3 % Normal 0.0-0.5 [facility] Comment on above: Performed By: #### C BC ####[facility] [address] [address]Dr. Rito Madison LYMPH # 1.8 103/ul Normal 1.2-3.8 [facility] Comment on above: Performed By: #### C BC ####[facility] [address] [address]Dr. Rito Madison Lymphocytes/100 WBC (Bld) 22.9 % Normal 20.5-60.0 [facility] Comment on above: Performed By: #### C BC ####[facility] [address] [address]Dr. Rito Los MANUAL DIFF REQ NO Normal [facility] Comment on above: Performed By: #### C BC ####[facility] [address] [address]Dr. Rito Los MCH (RBC) [Entitic mass] 28.7 pg Normal 26.7-34.0 [facility] Comment on above: Performed By: #### C BC ####[facility] [address] [address]Dr. Rito Madison MCHC (RBC) [Mass/Vol] 32.5 g/dL Normal 29.9-35.2 [facility] Comment on above: Performed By: #### C BC ####[facility] [address] [address]Dr. Rito Los MCV (RBC) [Entitic vol] 88.5 fL Normal 81.0-99.0 [facility] Comment on above: Performed By: #### C BC ####[facility] [address] [address]Dr. Rito Los MONO # 0.5 103/ul Normal 0.3-0.8 [facility] Comment on above: Performed By: #### C BC ####[facility] [address] [address]Dr. Rito Los Monocytes/100 WBC (Bld) 6.4 % Normal 1.7-12.0 [facility] Comment on above: Performed By: #### C BC ####[facility] [address] [place], [place] [address]Sg. Rito Madison NEUT # 5.4 103/ul Normal 1.4-6.5 [facility] Comment on above: Performed By: #### C BC ####[facility] [address] [address]Dr. Rito Los Neutrophils/100 WBC (Bld) 68.7 % Normal 43.0-75.0 [facility] Comment on above: Performed By: #### C BC ####[facility] [address] [address]Dr. Rito Madison Platelet mean volume (Bld) [Entitic vol] 8.2 fL Critically low 9.5-13.5 [facility] Comment on above: Performed By: #### C BC ####[facility] [address] [address]Dr. Rito Madison PLT 238 103/ul Normal 150-450 [facility] Comment on above: Performed By: #### C BC ####[facility] [address] [address]Dr. Yolyjayda Madison RBC 4.94 106/ul Normal 4.20-5.40 [facility] Comment on above: Performed By: #### C BC ####[facility] [address] [address]Dr. Rito Los WBC 7.8 103/ul Normal 4.0-11.0 [facility] Comment on above: Performed By: #### C BC ####[facility] [address] [address]DrAntonietta Yolyjayda Madison FREE THYROXINE INDEX T7on FTI 2.88 Normal 1.30-4.50 [facility] Comment on above: Performed By: #### L IPID, CMP, BNP, TSH, T7 #### [facility] [address] [place], [place] [address] Dr. Rito Madison T3U 36.0 % Normal 30.0-39.0 [facility] Comment on above: Performed By: #### L IPID, CMP, BNP, TSH, T7 #### [facility] [address] [address] [address] Rito Madison T4 [Mass/Vol] 8.00 ug/dL Normal 4.80-13.90 [facility] Comment on above: Performed By: #### L IPID, CMP, BNP, TSH, T7 #### [facility] [address] [address] [address] Rito Madison GLYCOHEMOGLOBIN A1Con 2022 ADA RECOMMENDATION SEE BELOW Normal [facility] Comment on above: Result Comment: ADA RECOMMENDED LIMIT 4.0 - 6.0 ADA THERAPEUTIC TARGET < 7.0 ACTION SUGGESTED > 7.0 Performed By: #### A 1C #### [facility] [address] [place] [address] Dr. Rito Madison Glucose [Mass/Vol] 111 mg/dL Normal [facility] Comment on above: Performed By: #### A 1C #### [facility] [address] [place] [address] Dr. Rito Madison HbA1c (Bld) [Mass fraction] 5.5 % Normal 4.5-6.2 [facility] Comment on above: Performed By: #### A 1C #### [facility] [address] [place] [address] Dr. Rito Madison IRONon 08-30-2022 Iron [Mass/Vol] 125.0 ug/dL Normal 50.0-170.0 [facility] Comment on above: Performed By: #### I VINAYAK ####[facility] [address] [address]Dr. Rito Madison LIPID PROFILEon 08-30-2022 CHOL-HDL RATIO NORM SEE BELOW Normal [facility] Comment on above: Result Comment: 3.3 - 4.4 LOW RISK 4.4 - 7.1 AVERAGE RISK 7.1 - 11.0 MODERATE RISK >11.0 HIGH RISK Performed By: #### L IPID, CMP, BNP, TSH, T7 #### [facility] [address] [address] [address] Rito Madison Cholesterol [Mass/Vol] 203 mg/dL Critically high <=200 [facility] Comment on above: Performed By: #### L IPID, CMP, BNP, TSH, T7 #### [facility] [address] [address] [address] Rito Madison Cholesterol in HDL [Mass/Vol] 79 mg/dL Critically high 40-60 [facility] Comment on above: Performed By: #### L IPID, CMP, BNP, TSH, T7 #### [facility] [address] [address] [address] Rito Madison Cholesterol in LDL [Mass/Vol] 108.6 mg/dL Normal [facility] Comment on above: Performed By: #### L IPID, CMP, BNP, TSH, T7 #### [facility] [address] [place] [address] Dr. Rito Madison Cholesterol.total/Vivian sterol in HDL [Mass ratio] 2.6 {ratio} Normal [facility] Comment on above: Performed By: #### L IPID, CMP, BNP, TSH, T7 #### [facility] [address] [address] [address] Rito Madison HDL NORMAL > or = 60 mg/dl - LO W CARDIOVASCULAR RISK <40 mg/dl - HIGH CARDIOVASCULAR RISK Normal [facility] Comment on above: Performed By: #### L IPID, CMP, BNP, TSH, T7 #### [facility] [address] [address] [address] Rito Madison LDL CALC NORMAL SEE BELOW Normal [facility] Comment on above: Result Comment: <100 mg/dl OPTIMAL 100 - 129 mg/dl NEAR OR ABOVE OPTIMAL 130 - 159 mg/dl BORDERLINE HIGH 160 - 189 mg/dl HIGH >190 mg/dl VERY HIGH Performed By: #### L IPID, CMP, BNP, TSH, T7 #### [facility] [address] [address] [address] Rito Madison Triglyceride [Mass/Vol] 77 mg/dL Normal <=150 [facility] Comment on above: Performed By: #### L IPID, CMP, BNP, TSH, T7 #### [facility] [address] [address] [address] Rito Madison VLDL CALC 15.4 mg/dL Normal [facility] Comment on above: Performed By: #### L IPID, CMP, BNP, TSH, T7 #### [facility] [address] [place] [address] Dr. Rito Madison PROF 14(COMP METB)on 023 Albumin [Mass/Vol] 3.6 g/dL Normal 3.4-5.0 [facility] Comment on above: Performed By: #### L IPID, CMP, BNP, TSH, T7 #### [facility] [address] [place] [address] Dr. Rito Madison Albumin/Globulin [Mass ratio] 1.0 {ratio} Normal [facility] Comment on above: Performed By: #### L IPID, CMP, BNP, TSH, T7 #### [facility] [address] [place] [address] Dr. Rito Madison ALP [Catalytic activity/Vol] 81 U/L Normal 46-116 [facility] Comment on above: Performed By: #### L IPID, CMP, BNP, TSH, T7 #### [facility] [address] [place] [address] Dr. Rito Madison ALT [Catalytic activity/Vol] 49 U/L Normal 14-59 [facility] Comment on above: Performed By: #### L IPID, CMP, BNP, TSH, T7 #### [facility] [address] [place] [address] Dr. Rito Madison Anion gap [Moles/Vol] 12.6 mmol/L Normal [facility] Comment on above: Performed By: #### L IPID, CMP, BNP, TSH, T7 #### [facility] [address] [place] [address] Dr. Rito Madison AST [Catalytic activity/Vol] 32 U/L Normal 15-37 [facility] Comment on above: Performed By: #### L IPID, CMP, BNP, TSH, T7 #### [facility] [address] [place] [address] Dr. Rito Madison Bilirubin [Mass/Vol] 0.7 mg/dL Normal 0.2-1.0 [facility] Comment on above: Performed By: #### L IPID, CMP, BNP, TSH, T7 #### [facility] [address] [place] [address] Dr. Rito Madison Calcium [Mass/Vol] 9.3 mg/dL Normal 8.5-10.1 [facility] Comment on above: Performed By: #### L IPID, CMP, BNP, TSH, T7 #### [facility] [address] [place] [address] Dr. Rito Madison Chloride [Moles/Vol] 103 mmol/L Normal 98-107 [facility] Comment on above: Performed By: #### L IPID, CMP, BNP, TSH, T7 #### [facility] [address] [place] [address] Dr. Rito Madison CO2 [Moles/Vol] 29.5 mmol/L Normal 21.0-32.0 [facility] Comment on above: Performed By: #### L IPID, CMP, BNP, TSH, T7 #### [facility] [address] [place] [address] Dr. Rito Madison Creatinine [Mass/Vol] 0.79 mg/dL Normal 0.55-1.02 [facility] Comment on above: Performed By: #### L IPID, CMP, BNP, TSH, T7 #### [facility] [address] [place] [address] Dr. Rito Madison EGFR-AF ZAMBIAN >60 Normal >=60 [facility] Comment on above: Performed By: #### L IPID, CMP, BNP, TSH, T7 #### [facility] [address] [place] [address] Dr. Rito Madison EGFR-NON AF ZAMBIAN >60 Normal >=60 [facility] Comment on above: Performed By: #### L IPID, CMP, BNP, TSH, T7 #### [facility] [address] [place] [address] Dr. Rito Madison Globulin (S) [Mass/Vol] 3.6 g/dL Normal T [facility] Comment on above: Performed By: #### L IPID, CMP, BNP, TSH, T7 #### [facility] [address] [address] [address] Rito Madison Glucose [Mass/Vol] 88 mg/dL Normal 74-106 [facility] Comment on above: Performed By: #### L IPID, CMP, BNP, TSH, T7 #### [facility] [address] [place] [address] Dr. Rito Madison Potassium [Moles/Vol] 4.1 mmol/L Normal 3.5-5.1 [facility] Comment on above: Performed By: #### L IPID, CMP, BNP, TSH, T7 #### [facility] [address] [place] [address] Dr. Rito Madison Protein [Mass/Vol] 7.2 g/dL Normal 6.4-8.2 [facility] Comment on above: Performed By: #### L IPID, CMP, BNP, TSH, T7 #### [facility] [address] [place] [address] Dr. Rito Mdaison Sodium [Moles/Vol] 141 mmol/L Normal 136-145 [facility] Comment on above: Performed By: #### L IPID, CMP, BNP, TSH, T7 #### [facility] [address] [place] [address] Dr. Rito Madison Urea nitrogen [Mass/Vol] 17.0 mg/dL Normal 7.0-18.0 [facility] Comment on above: Performed By: #### L IPID, CMP, BNP, TSH, T7 #### [facility] [address] [place] [address] Dr. Rito Madison Urea nitrogen/Creatinine [Mass ratio] 21.5 mg/mg Normal [facility] Comment on above: Performed By: #### L IPID, CMP, BNP, TSH, T7 #### [facility] [address] [place] [address] Dr. Rito Madison TSHon 08-30-2022 TSH 4.464 uIU/mL Critically high 0.358-3.740 [facility] Comment on above: Performed By: #### L IPID, CMP, BNP, TSH, T7 #### [facility] [address] [place], [place] [address] Dr. Rito Madison CBC AUTO DIFFon 06-01-2022 BASO # 0.0 103/ul Normal 0.0-0.1 [facility] Comment on above: Performed By: #### C BC ####[facility] [address] [address]DrAntonietta Madison Basophils/100 WBC (Bld) 0.2 % Normal 0.2-2.0 [facility] Comment on above: Performed By: #### C BC ####[facility] [address] [address]DrAntonietta Madison EO # 0.1 103/ul Normal 0.0-0.7 [facility] Comment on above: Performed By: #### C BC ####[facility] [address] [address]DrAntonietta Madison Eosinophils/100 WBC (Bld) 1.5 % Normal 0.9-7.0 [facility] Comment on above: Performed By: #### C BC ####[facility] [address] [address]DrAntonietta Madison Erythrocyte distribution width (RBC) [Ratio] 12.9 % Normal 11.0-15.0 [facility] Comment on above: Performed By: #### C BC ####[facility] [address] [address]DrAntonietta Madison Hematocrit (Bld) [Volume fraction] 44.4 % Normal 36.0-48.0 [facility] Comment on above: Performed By: #### C BC ####[facility] [address] [address]DrAntonietta Madison Hemoglobin (Bld) [Mass/Vol] 14.7 g/dL Normal 12.0-16.0 [facility] Comment on above: Performed By: #### C BC ####[facility] [address] [address]DrAntonietta Madison IG # 0.03 10e3/ul Normal 0.00-0.03 [facility] Comment on above: Performed By: #### C BC ####[facility] [address] [address]Dr. Rito Madison IG % 0.3 % Normal 0.0-0.5 [facility] Comment on above: Performed By: #### C BC ####[facility] [address] [address]Dr. Yolyjayda Madison LYMPH # 1.7 103/ul Normal 1.2-3.8 [facility] Comment on above: Performed By: #### C BC ####[facility] [address] [address]Dr. Yolyjayda Madison Lymphocytes/100 WBC (Bld) 19.5 % Critically low 20.5-60.0 [facility] Comment on above: Performed By: #### C BC ####[facility] [address] [place], [place] [address]Dr. Rito Madison MANUAL DIFF REQ NO Normal [facility] Comment on above: Performed By: #### C BC ####[facility] [address] [place], [place] [address]Dr. Yolyjayda Madison MCH (RBC) [Entitic mass] 28.3 pg Normal 26.7-34.0 [facility] Comment on above: Performed By: #### C BC ####[facility] [address] [address]Dr. Yolyjayda Madison MCHC (RBC) [Mass/Vol] 33.1 g/dL Normal 29.9-35.2 [facility] Comment on above: Performed By: #### C BC ####[facility] [address] [place], [place] [address]Dr. Yolyjayda Madison MCV (RBC) [Entitic vol] 85.4 fL Normal 81.0-99.0 [facility] Comment on above: Performed By: #### C BC ####[facility] [address] [place], [place] [address]Dr. Rito Madison MONO # 0.7 103/ul Normal 0.3-0.8 [facility] Comment on above: Performed By: #### C BC ####[facility] [address] [address]Dr. Rito Madison Monocytes/100 WBC (Bld) 8.3 % Normal 1.7-12.0 [facility] Comment on above: Performed By: #### C BC ####[facility] [address] [address]Dr. Rito Madison NEUT # 6.3 103/ul Normal 1.4-6.5 [facility] Comment on above: Performed By: #### C BC ####[facility] [address] [address]Dr. Rito Madison Neutrophils/100 WBC (Bld) 70.2 % Normal 43.0-75.0 [facility] Comment on above: Performed By: #### C BC ####[facility] [address] [address]Dr. Rito Madison Platelet mean volume (Bld) [Entitic vol] 8.4 fL Critically low 9.5-13.5 [facility] Comment on above: Performed By: #### C BC ####[facility] [address] [place], [place] [address]Dr. Rito Madison PLT 295 103/ul Normal 150-450 [facility] Comment on above: Performed By: #### C BC ####[facility] [address] [address]Dr. Rito Madison RBC 5.20 106/ul Normal 4.20-5.40 [facility] Comment on above: Performed By: #### C BC ####[facility] [address] [address]Dr. Rito Madison WBC 8.9 103/ul Normal 4.0-11.0 [facility] Comment on above: Performed By: #### C BC ####[facility] [address] [address]DrAntonietta Rito Madison PROF CHEM 8 (BAS METB)on Anion gap [Moles/Vol] 9.8 mmol/L Normal [facility] Comment on above: Performed By: #### B MP #### [facility] [address] [address] [address] Rito Madison Calcium [Mass/Vol] 9.2 mg/dL Normal 8.5-10.1 [facility] Comment on above: Performed By: #### B MP #### [facility] [address] [address] [address] Rito Madison Chloride [Moles/Vol] 103 mmol/L Normal 98-107 [facility] Comment on above: Performed By: #### B MP #### [facility] [address] [address] [address] Rito Madison CO2 [Moles/Vol] 25.8 mmol/L Normal 21.0-32.0 [facility] Comment on above: Performed By: #### B MP #### [facility] [address] [address] [address] Rito Madison Creatinine [Mass/Vol] 0.86 mg/dL Normal 0.55-1.02 [facility] Comment on above: Performed By: #### B MP #### [facility] [address] [address] [address] Rito Madison EGFR-AF ZAMBIAN >60 Normal >=60 [facility] Comment on above: Performed By: #### B MP #### [facility] [address] [address] [address] Rito Madison EGFR-NON AF ZAMBIAN >60 Normal >=60 [facility] Comment on above: Performed By: #### B MP #### [facility] [address] [address] [address] Rito Madison Glucose [Mass/Vol] 109 mg/dL Critically high 74-106 [facility] Comment on above: Performed By: #### B MP #### [facility] [address] [address] [address] Rito Madison Potassium [Moles/Vol] 3.6 mmol/L Normal 3.5-5.1 [facility] Comment on above: Performed By: #### B MP #### [facility] [address] [address] [address] Rito Madison Sodium [Moles/Vol] 135 mmol/L Critically low 136-145 [facility] Comment on above: Performed By: #### B MP #### [facility] [address] [address] [address] Rito Madison Urea nitrogen [Mass/Vol] 14.0 mg/dL Normal 7.0-18.0 [facility] Comment on above: Performed By: #### B MP #### [facility] [address] [address] [address] Rtio Madison Urea nitrogen/Creatinine [Mass ratio] 16.3 mg/mg Normal [facility] Comment on above: Performed By: #### B MP #### [facility] [address] [place] [address] Dr. Rito Madison AMYLASEon 05-07-2022 Amylase [Catalytic activity/Vol] 82 U/L Normal 25-115 [facility] Comment on above: Performed By: #### L IPA, CMP, TRINY ####[facility] [address] [address]Dr. Rito Madison CBC AUTO DIFFon 05-07-2022 BASO # 0.0 103/ul Normal 0.0-0.1 [facility] Comment on above: Performed By: #### C BC ####[facility] [address] [address]Dr. Rito Madison Basophils/100 WBC (Bld) 0.4 % Normal 0.2-2.0 [facility] Comment on above: Performed By: #### C BC ####[facility] [address] [address]DrAntonietta Madison EO # 0.2 103/ul Normal 0.0-0.7 [facility] Comment on above: Performed By: #### C BC ####[facility] [address] [address]Dr. Rito Madison Eosinophils/100 WBC (Bld) 2.0 % Normal 0.9-7.0 [facility] Comment on above: Performed By: #### C BC ####[facility] [address] [address]Dr. Rito Madison Erythrocyte distribution width (RBC) [Ratio] 12.8 % Normal 11.0-15.0 [facility] Comment on above: Performed By: #### C BC ####[facility] [address] [address]Dr. Rito Madison Hematocrit (Bld) [Volume fraction] 42.7 % Normal 36.0-48.0 [facility] Comment on above: Performed By: #### C BC ####[facility] [address] [place], [place] [address]Dr. Rito Madison Hemoglobin (Bld) [Mass/Vol] 14.2 g/dL Normal 12.0-16.0 [facility] Comment on above: Performed By: #### C BC ####[facility] D[address] [place], [place] [address]Dr. Rito Madison IG # 0.03 10e3/ul Normal 0.00-0.03 [facility] Comment on above: Performed By: #### C BC ####[facility] [address] [place], [place] [address]Dr. Rito Madison IG % 0.4 % Normal 0.0-0.5 [facility] Comment on above: Performed By: #### C BC ####[facility] [address] [place], [place] [address]Dr. Rito Madison LYMPH # 2.2 103/ul Normal 1.2-3.8 [facility] Comment on above: Performed By: #### C BC ####[facility] X[address]px[address] [place], [place] [address]Dr. Rito Madison Lymphocytes/100 WBC (Bld) 26.0 % Normal 20.5-60.0 [facility] Comment on above: Performed By: #### C BC ####[facility] [address] [address]Dr. Rito Madison MANUAL DIFF REQ NO Normal [facility] Comment on above: Performed By: #### C BC ####[facility] [address] [address]Dr. Rito Madison MCH (RBC) [Entitic mass] 29.2 pg Normal 26.7-34.0 [facility] Comment on above: Performed By: #### C BC ####[facility] [address] [address]Dr. Rito Madison MCHC (RBC) [Mass/Vol] 33.3 g/dL Normal 29.9-35.2 [facility] Comment on above: Performed By: #### C BC ####[facility] [address] [address]Dr. Rito Los MCV (RBC) [Entitic vol] 87.7 fL Normal 81.0-99.0 [facility] Comment on above: Performed By: #### C BC ####[facility] [address] [place], [place] [address]Dr. Rito Madison MONO # 0.8 103/ul Normal 0.3-0.8 [facility] Comment on above: Performed By: #### C BC ####[facility] [address] [address]Dr. Yolyjayda Madison Monocytes/100 WBC (Bld) 9.2 % Normal 1.7-12.0 [facility] Comment on above: Performed By: #### C BC ####[facility] [address] [place], [place] [address]Dr. Yolyjayda Madison NEUT # 5.3 103/ul Normal 1.4-6.5 [facility] Comment on above: Performed By: #### C BC ####[facility] [address] [place], [place] [address]Dr. Rito Madison Neutrophils/100 WBC (Bld) 62.0 % Normal 43.0-75.0 [facility] Comment on above: Performed By: #### C BC ####[facility] Ilsoq[address] [place], [place] [address]Dr. Rito Madison Platelet mean volume (Bld) [Entitic vol] 8.5 fL Critically low 9.5-13.5 [facility] Comment on above: Performed By: #### C BC ####[facility] [address] [place], [place] [address]Qm. Rito Madison PLT 291 103/ul Normal 150-450 [facility] Comment on above: Performed By: #### C BC ####[facility] [address] [place], [place] [address]Mu. Rito Madison RBC 4.87 106/ul Normal 4.20-5.40 [facility] Comment on above: Performed By: #### C BC ####[facility] [address] [place], [place] [address]Np. Rito Madison WBC 8.5 103/ul Normal 4.0-11.0 [facility] Comment on above: Performed By: #### C BC ####[facility] [address]ecafl[address] [place], [place] [address] ABD/PELVIS WO CONon 05-07 [...] CATHRYN OATES Date: 2022-05-07 06:53 Normal [facility] CULTURE URINEon 05-07-2022 CULTURE URINE Culture Observations : No growth Normal [facility] Comment on above: Performed By: #### U RCX ####[facility] [address] [place], [place] [address]UnAntonietta MARINO URINE PROFILEon 2 Bilirubin Ql (U) Negative Normal NEGATIVE [facility] Comment on above: Performed By: #### E TAMMY SANTIZO ####[facility] [address] [address]Dr. Rito Madison Clarity (U) CLEAR Normal CLEAR [facility] Comment on above: Performed By: #### RUBEN MARIERO ####[facility] Onylcsspby[address] [place], [place] [address]Dr. Yolyjayda Madison Color (U) LT. YELLOW Normal YELLOW [facility] Comment on above: Performed By: #### RUBEN MARIERO ####[facility] Thm[address] [place], [place] [address]Dr. Yolyjayda Madison ERUAHD A micrscopic examination will be performed if indicated. Normal [facility] Comment on above: Performed By: #### RUBEN MARIERO ####[facility] Avxxpvvika[address] [place], [place] [address]Dr. Rito Madison Glucose Ql (U) Negative Normal NEGATIVE [facility] Comment on above: Performed By: #### MARV MARIEICRO ####[facility] Qwrqzbrnon[address] [place], [place] [address]Dr. Yolyjayda Los Hemoglobin Ql (U) Negative Normal NEGATIVE [facility] Comment on above: Performed By: #### RUBEN MARIERO ####[facility] Xfbmvjsrwe[address] [place], [place] [address]Dr. Rito Madison Ketones Ql (U) Negative Normal NEGATIVE [facility] Comment on above: Performed By: #### MARV MARIEICRO ####[facility] Glvlnbejov[address] [place], [place] [address]Dr. Rito Madison LEUKOCYTES MODERATE Abnormal NEGATIVE [facility] Comment on above: Performed By: #### MARV MARIEICRO ####[facility] E[address]sh[address]fxrfv[address] [place], [place] [address]Dr. Rito Madison Nitrite Ql (U) Negative Normal NEGATIVE [facility] Comment on above: Performed By: #### Jatinder SANTIZO UMICRO ####[facility] Atrycyduak[address] [place], [place] [address]Dr. Rito Madison pH (U) 6.0 [pH] Normal 5-9 [facility] Comment on above: Performed By: #### RUBEN MARIERO ####[facility] [address] [address]Dr. Rito Madison SPEC GRAVITY 1.015 Normal 1.005-<=1.025 [facility] Comment on above: Performed By: #### RUBEN MARIERO ####[facility] [address] [address]Dr. Rito Madison UA PROTEIN Negative Normal NEGATIVE/ TRACE [facility] Comment on above: Performed By: #### Jatinder SANTIZO ICRO ####[facility] [address] [address]Dr. Rito Madison UR MICRO IND INDICATED Normal [facility] Comment on above: Performed By: #### Jatinder SANTIZO DAVIERO ####[facility] Piephksykn[address] [place], [place] [address]Dr. Rito Madison Urobilinogen Qn (U) 0.2 {Scarlet'U}/dL Normal 0.2 - 1. 0 [facility] Comment on above: Performed By: #### Jatinder SANTIZO [facility] ####[facility] [address]uyaenlh[address] [place], [place] [address]Dr. Rito Madison LIPASEon 05-07-2022 Lipase [Catalytic activity/Vol] 171.0 U/L Normal 73.0-393.0 [facility] Comment on above: Performed By: #### L IPA, CMP, TRINY ####[facility] Mqslzqavmh[address] [place], [place] [address]Dr. Rito Madison PROF 14(COMP METB)on 022 Albumin [Mass/Vol] 3.6 g/dL Normal 3.4-5.0 [facility] Comment on above: Performed By: #### L IPA, CMP, TRINY ####[facility] Vlkhijfkkp[address] [place], [place] [address]Dr. Rito Madison Albumin/Globulin [Mass ratio] 0.9 {ratio} Normal [facility] Comment on above: Performed By: #### L IPA, CMP, TRINY ####[facility] Hjmtmdutso[address] [place], [place] [address]Dr. Rito Madison ALP [Catalytic activity/Vol] 80 U/L Normal 46-116 [facility] Comment on above: Performed By: #### L IPA, CMP, TRINY ####[facility] [address] [address]Dr. Rito Madison ALT [Catalytic activity/Vol] 22 U/L Normal 14-59 [facility] Comment on above: Performed By: #### L IPA, CMP, TRINY ####[facility] M[address]iyhvocwf[address] [place], [place] [address]Dr. Rito Madison Anion gap [Moles/Vol] 9.1 mmol/L Normal [facility] Comment on above: Performed By: #### L IPA, CMP, TRINY ####[facility] Srjshgffcb[address] [place], [place] [address]Dr. Rito Madison AST [Catalytic activity/Vol] 25 U/L Normal 15-37 [facility] Comment on above: Performed By: #### L IPA, CMP, TRINY ####[facility] Jepiovyvrx[address] [place], [place] [address]Dr. Rito Madison Bilirubin [Mass/Vol] 0.6 mg/dL Normal 0.2-1.0 [facility] Comment on above: Performed By: #### L IPA CMP, TRINY ####[facility] Bifacworha[address] [place], [place] [address]Dr. Rito Madisno Calcium [Mass/Vol] 9.1 mg/dL Normal 8.5-10.1 [facility] Comment on above: Performed By: #### L IPA, CMP, TRINY ####[facility] Giljjffnua[address] [place], [place] [address]Dr. Rito Madison Chloride [Moles/Vol] 104 mmol/L Normal 98-107 [facility] Comment on above: Performed By: #### L IPA, CMP, TRINY ####[facility] [address]awhckf[address] [place], [place] [address]Dr. Rito Madison CO2 [Moles/Vol] 28.6 mmol/L Normal 21.0-32.0 [facility] Comment on above: Performed By: #### L IPA, CMP, TRINY ####[facility] [address] [address]Dr. Rito Madison Creatinine [Mass/Vol] 0.80 mg/dL Normal 0.55-1.02 [facility] Comment on above: Performed By: #### L IPA, CMP, TRINY ####[facility] [address] [address]Dr. Rito Madison EGFR-AF ZAMBIAN >60 Normal >=60 [facility] Comment on above: Performed By: #### L IPA, CMP, TRINY ####[facility] [address] [address]Dr. Rito Madison EGFR-NON AF ZAMBIAN >60 Normal >=60 [facility] Comment on above: Performed By: #### L IPA, CMP, TRINY ####[facility] [address]xs[address] [address]Dr. Rito Madison Globulin (S) [Mass/Vol] 3.9 g/dL Normal [facility] Comment on above: Performed By: #### L IPA, CMP, TRINY ####[facility] [address] [address]Dr. Rito Madison Glucose [Mass/Vol] 107 mg/dL Critically high 74-106 [facility] Comment on above: Performed By: #### L IPA, CMP, TRINY ####[facility] [address] [address]Dr. Rito Madison Potassium [Moles/Vol] 3.7 mmol/L Normal 3.5-5.1 [facility] Comment on above: Performed By: #### L IPA, CMP, TRINY ####[facility] [address]xf[address] [address]Dr. Rito Madison Protein [Mass/Vol] 7.5 g/dL Normal 6.4-8.2 [facility] Comment on above: Performed By: #### L IPA, CMP, TRINY ####[facility] [address] [address]Dr. Rito Madison Sodium [Moles/Vol] 138 mmol/L Normal 136-145 [facility] Comment on above: Performed By: #### L IPA, CMP, TRINY ####[facility] [address] [address]Dr. Yolyjayda Los Urea nitrogen [Mass/Vol] 14.0 mg/dL Normal 7.0-18.0 [facility] Comment on above: Performed By: #### L IPA, CMP, TRINY ####[facility] [address] [address]Dr. Rito Madison Urea nitrogen/Creatinine [Mass ratio] 17.5 mg/mg Normal [facility] Comment on above: Performed By: #### L IPA, CMP, TRINY ####[facility] [address] [address]Dr. Rito Madison URINE MICROSCOPIC ONLYon BACTERIA NONE SEEN Normal NONE SEEN [facility] Comment on above: Performed By: #### Jatinder RUJojo UMICRO ####[facility] [address]oecckym[address] [place], [place] [address]Dr. Rito Madison Bacteria identified Cx Nom (U) INDICATED Normal [facility] Comment on above: Performed By: #### Jatinder SANTIZO UMICRO ####[facility] Sh[address]dexmr[address] [place], [place] [address]Dr. Rito Madison CAST NONE SEEN Normal NONE SEEN [facility] Comment on above: Performed By: #### Jatinder SANTIZO UMICRO ####[facility] [address]wygpnot[address] [place], [place] [address]Dr. Rito Madison Crystals LM Nom (Urine sed) NONE SEEN Normal NONE SEEN [facility] Comment on above: Performed By: #### E RUR, UMICRO ####[facility] [address] [address]Dr. Rito Madison Epithelial cells LM Ql (Urine sed) FEW Abnormal NONE SEEN /RARE [facility] Comment on above: Performed By: #### E RUR, UMICRO ####[facility] [address] [address]Dr. Rito Madison MUCOUS NONE SEEN Normal NONE SEEN [facility] Comment on above: Performed By: #### E RUR UMICRO ####[facility] [address]ott[address] [place], [place] [address]Ql. Rito Madison RBC 0-2 Normal 0-2 [facility] Comment on above: Performed By: #### TAMMY MARIE ####[facility] [address] [place], [place] [address]So. Rito Madison WBC 10-20 Abnormal NONE SEEN [facility] Comment on above: Performed By: #### TAMMY MARIE ####[facility] [address]pm[address] [place], [place] [address]Ji. Rito Madison MRI CSPINE WO CONon 03-23-20 [...] SURYA MONTEMAYOR Date: 2022-03-23 06:23 Normal [facility] XR CSPINE MIN 4 VIEWSon [...] SURYA MONTEMAYOR Date: 2022-03-10 11:08 Normal [facility] EKG 12 LeadOrdered By: Taz Gan on 02-16-2021 Atrial Rate 58 BPM [employer] Phone: [phone] P [place] 67 degrees [employer] Phone: P-R Interval 156 ms [employer] Phone: Q-T Interval 446 ms [employer] Phone: QRS Duration 112 ms [employer] Phone: QTc Calculation (Bazett) 437 ms [employer] Phone: R [place] -75 degrees [employer] Phone: T [place] 27 degrees [employer] Phone: Ventricular Rate 58 BPM [employer] Phone: Sinus bradycardia Left axis deviation Pulmonary disease pattern T wave abnormality, consider anterior ischemia Abnormal ECG When compared with ECG of 19-MAY-2020 14:49, Incomplete right bundle branch block is no longer Present T wave inversion no longer evident in Inferior leads T wave inversion no longer evident in Lateral leads [employer] Phone: Marlo, Mhpn Incoming Ekg Results From [facility] - 02/16/2021 9:14 AM EDT Sinus bradycardia Left axis deviation Pulmonary disease pattern T wave abnormality, consider anterior ischemia Abnormal ECG When compared with ECG of 19-MAY-2020 14:49, Incomplete right bundle branch block is no longer Present T wave inversion no longer evident in Inferior leads T wave inversion no longer evident in Lateral leads [facility] Phone: [employer] Phone: MRSA DNA Probe, NasalOrdered By: Chanel Fuentes on 02-16-2021 MRSA, DNA, Nasal NEGATIVE: MRSA DNA not detected by nucleic acid amplification. NEGATIVE: MRSA DNA not detected by nucleic acid amplificati [facility] Phone: Comment on above: Results should be used as an adjunct to nosocomial control efforts to identify patients needing enhanced precautions. The test is not intended to identify patients with staphylococcal infections. Results should not be used to guide or monitor treatment for MRSA infections. Specimen Description .NASAL SWAB [facility] Phone: [facility] Phone: MRSA, DNA, Nasalon MRSA, DNA, Nasal NEGATIVE: MRSA DNA not detected by nucleic acid amplification. Normal [facility] Comment on above: Result Comment: Results should be used as an adjunct to nosocomial control efforts to identify patients needing enhanced precautions. The test is not intended to identify patients with staphylococcal infections. Results should not be used to guide or monitor treatment for MRSA infections. Performed By: #### M RSANO #### [facility] [address] [place] [address] Ppap Coordinator: Rui Strauss DO [employer] [address] [place] [address] Ppap Coordinator: Brody Remy MD Basic Metabolic PanelOrdered By: Taz Gan on 02-15-2021 Anion gap [Moles/Vol] 7 mmol/L Low 9 - 17 mmol/L [employer] Phone: Calcium [Mass/Vol] 9.0 mg/dL 8.6 - 10. 4 mg/dL [employer] Phone: Chloride [Moles/Vol] 103 mmol/L 98 - 10 7 mmol/L [employer] Phone: CO2 [Moles/Vol] 30 mmol/L 20 - 31 mmol/L [employer] Phone: Creatinine [Mass/Vol] 0.61 mg/dL 0.50 - 0.90 mg/dL [employer] Phone: GFR >60 >60 mL/min [employer] Phone: GFR Non- >60 >60 mL/min [employer] Phone: GFR/1.73 sq M.predicted MDRD (S/P/Bld) [Vol rate/Area] [employer] Phone: Comment on above: Average GFR for 70 o r more years old: 75 mL/min/1.73sq m Chronic Kidney Disease: <60 mL/min/1.73sq m Kidney failure: <15 mL/min/1.73sq m eGFR calculated using average adult body mass. Additional eGFR calculator available at: http://www.Dentalink.com/multiple_crcl_2012.htm GFR/1.73 sq M.predicted MDRD (S/P/Bld) [Vol rate/Area] NOT REPORTED [employer] Phone: Glucose [Mass/Vol] 95 mg/dL 70 - 99 mg/dL [facility] Phone: Interpretation and review of laboratory results Abnormal [facility] Phone: Potassium [Moles/Vol] 4.1 mmol/L 3.7 - 5.3 mmol/L [facility] Phone: Sodium [Moles/Vol] 140 mmol/L 135 - 144 mmol/L [facility] Phone: Urea nitrogen (BldV) [Mass/Vol] 16 mg/dL 8 - 23 mg/dL [facility] Phone: Urea nitrogen/Creatinine (Bld) [Mass ratio] NOT REPORTED [facility] Phone: [employer] Phone: Basic Metabolic Profon 02-15 (cont.) Normal [facility] Comment on above: Result Comment: Aver age GFR for 70 or more years old: 75 mL/min/1.73sq m Chronic Kidney Disease: <60 mL/min/1.73sq m Kidney failure: <15 mL/min/1.73sq m eGFR calculated using average adult body mass. Additional eGFR calculator available at: http://www.Dentalink.[employer]/multiple_crcl_2012.htm Performed By: #### B ROSSI, CDP #### [facility] [address] [place], [place] [id number] Ppap Coordinator: Rui Strauss DO Anion gap [Moles/Vol] 7 mmol/L Low 9-17 [facility] Comment on above: Performed By: #### B ROSSI, CDP #### [facility] [address] [place], [place] [id number] Ppap Coordinator: Rui Strauss DO Calcium [Mass/Vol] 9.0 mg/dL Normal 8.6-10.4 [facility] Comment on above: Performed By: #### B ROSSI, CDP #### [facility] [address] [place] [address] Ppap Coordinator: Rui Strauss DO Chloride [Moles/Vol] 103 mmol/L Normal 98-107 [facility] Comment on above: Performed By: #### B ROSSI, CDP #### [facility] [address] [place] [address] Ppap Coordinator: Rui Strauss DO CO2 [Moles/Vol] 30 mmol/L Normal 20-31 [facility] Comment on above: Performed By: #### B ROSSI, CDP #### [facility] [address] [place] [address] Ppap Coordinator: Rui Strauss DO Creatinine [Mass/Vol] 0.61 mg/dL Normal 0.50-0.90 [facility] Comment on above: Performed By: #### B ROSSI, CDP #### [facility] [place] [address] Ppap Coordinator: Rui Strauss DO GFR, Amer >60 Normal >60 [facility] Comment on above: Performed By: #### B ROSSI, CDP #### [facility] [address] [facility] [place] [address] Ppap Coordinator: Rui Strauss DO GFR,non Amer >60 Normal >60 [facility] Comment on above: Performed By: #### B ROSSI, CDP #### [facility] [place] [address] Ppap Coordinator: Rui Strauss DO Glucose [Mass/Vol] 95 mg/dL Normal 70-99 [facility] Comment on above: Performed By: #### B ROSSI, CDP #### [facility] [place] [address] Ppap Coordinator: Rui Strauss DO Potassium [Moles/Vol] 4.1 mmol/L Normal 3.7-5.3 [facility] Comment on above: Performed By: #### B ROSSI, CDP #### [facility] [address] [place] [address] Ppap Coordinator: Rui Strauss DO Sodium [Moles/Vol] 140 mmol/L Normal 135-144 [facility] Comment on above: Performed By: #### B ROSSI, CDP #### [facility] [address] [facility] [place] [address] Ppap Coordinator: Rui Strauss DO Urea nitrogen [Mass/Vol] 16 mg/dL Normal 8-23 [facility] Comment on above: Performed By: #### B ROSSI, CDP #### [facility] [address] [facility] [place] [address] Ppap Coordinator: Rui Strauss DO BUN/CRE Ratio NOT REPORTED Normal 9-20 [facility] Comment on above: Performed By: #### B ROSSI, CDP #### [facility] [address] [facility] [place] [address] Ppap Coordinator: Rui Strauss DO Staging: NOT REPORTED Normal [facility] Comment on above: Performed By: #### B ROSSI, CDP #### [facility] [address] [facility]. [place] [address] Ppap Coordinator: Rui Strauss DO CBC Auto DifferentialOrdered By: Taz Gan on 02-15-2021 Absolute Eos # 0.10 [employer] Phone: Absolute Immature Granulocyte NOT REPORTED [employer] Phone: Absolute Lymph # 1.90 [employer] Phone: Absolute [place] # 0.60 [employer] Phone: Basophils (Bld) [#/Vol] 0.00 10*3/uL [employer] Phone: Basophils/100 WBC (Bld) 0 % 0 - 2 % M [employer] Phone: Differential Type NOT REPORTED [employer] Phone: Eosinophils/100 WBC (Bld) 1 % 0 - 4 % [employer] Phone: Hematocrit (Bld) [Volume fraction] 37.1 % 36 - 46 % [employer] Phone: Hemoglobin.gastrointest inal spec 1 Ql (Stl) 12.6 g/dL 12.0 - 16.0 g/dL [employer] Phone: Immature Granulocytes NOT REPORTED 0 % M [employer] Phone: Interpretation and review of laboratory results Abnormal [employer] Phone: Lymphocytes/100 WBC (Bld) 28 % 24 - 44 % [employer] Phone: MCH (RBC) [Entitic mass] 36.5 pg High 26 - 34 pg [employer] Phone: MCHC (RBC) [Mass/Vol] 34.0 g/dL 31 - 37 g/dL M [employer] Phone: MCV (RBC) [Entitic vol] 107.3 fL High 80 - 100 fL [employer] Phone: Monocytes/100 WBC (Bld) 8 % High 1 - 7 % M [employer] Phone: NRBC Automated NOT REPORTED per 100 WBC [employer] Phone: Platelet distribution width (Bld) [Ratio] 15.9 % High 11.5 - 14.9 % [employer] Phone: Platelet Estimate NOT REPORTED [employer] Phone: Platelet mean volume (Bld) [Entitic vol] 6.5 fL 6.0 - 12.0 fL [employer] Phone: Platelets (Bld) [#/Vol] 292 10*3/uL [employer] Phone: RBC (Bld) [#/Vol] 3.46 10*6/uL Low 4.0 - 5.2 m/uL M [employer] Phone: RBC (Bld) [#/Vol] NOT REPORTED [employer] Phone: Segmented neutrophils/100 WBC (Bld) 63 % 36 - 66 % [employer] Phone: Segs Absolute 4.20 [employer] Phone: WBC (Bld) [#/Vol] 6.7 10*3/uL [employer] Phone: WBC (Bld) [#/Vol] NOT REPORTED [employer] Phone: [employer] Phone: CBC with Diffon 02-15-2021 Abs. Basophil 0.00 k/uL Normal 0.0-0.2 [facility] Comment on above: Performed By: #### B ROSSI, CDP #### [facility] [address] [place] [address] Ppap Coordinator: Rui Strauss DO Abs.Neutrophil (Seg) 4.20 k/uL Normal 1.3-9.1 [facility] Comment on above: Performed By: #### B ROSSI, CDP #### [facility] [address] [place] [address] Ppap Coordinator: Rui Strauss DO Basophils/100 WBC (Bld) 0 % Normal 0-2 M [facility] Comment on above: Performed By: #### B ROSSI, CDP #### [facility] [address] [place] [address] Ppap Coordinator: Rui Strauss DO Eosinophils (Bld) [#/Vol] 0.10 10*3/uL Normal 0.0-0.4 [facility] Comment on above: Performed By: #### Lazaro RICHEY, CDP #### [facility] [address] [place] [address] Ppap Coordinator: Rui Strauss DO Eosinophils/100 WBC (Bld) 1 % Normal 0-4 [facility] Comment on above: Performed By: #### B ROSSI, CDP #### [facility] [address] [place] [address] Ppap Coordinator: Rui Strauss DO Erythrocyte distribution width (RBC) [Ratio] 15.9 % High 11.5-14.9 [facility] Comment on above: Performed By: #### Lazaro RICHEY, CDP #### [facility] [place] [address] Ppap Coordinator: Rui Strauss DO Hematocrit (Bld) [Volume fraction] 37.1 % Normal 36-46 [facility] Comment on above: Performed By: #### Lazaro RICHEY, CDP #### [facility] [place] [address] Ppap Coordinator: Rui Strauss DO Hemoglobin (Bld) [Mass/Vol] 12.6 g/dL Normal 12.0-16.0 [facility] Comment on above: Performed By: #### Lazaro RICHEY, CDP #### [facility] [place] [address] Ppap Coordinator: Rui Strauss DO Lymphocytes (Bld) [#/Vol] 1.90 10*3/uL Normal 1.0-4.8 [facility] Comment on above: Performed By: #### B ROSSI, CDP #### [facility] [place] [address] Ppap Coordinator: Rui Strauss DO Lymphocytes/100 WBC (Bld) 28 % Normal 24-44 [facility] Comment on above: Performed By: #### B ROSSI, CDP #### [facility] [place] [address] Ppap Coordinator: Rui Strauss DO MCH (RBC) [Entitic mass] 36.5 pg High 26-34 [facility] Comment on above: Performed By: #### B ROSSI, CDP #### [facility] [place] [address] Ppap Coordinator: Rui Strauss DO MCHC (RBC) [Mass/Vol] 34.0 g/dL Normal 31-37 [facility] Comment on above: Performed By: #### Lazaro RICHEY, CDP #### [facility] [address] [place] [address] Ppap Coordinator: Rui Strauss DO MCV (RBC) [Entitic vol] 107.3 fL High 80-100 M [facility] Comment on above: Performed By: #### Lazaro RICHEY, CDP #### [facility] [address] [place] [address] Ppap Coordinator: Rui Strauss DO Monocytes (Bld) [#/Vol] 0.60 10*3/uL Normal 0.1-1.3 [facility] Comment on above: Performed By: #### B ROSSI, CDP #### [facility] [place] [address] Ppap Coordinator: Rui Strauss DO Monocytes/100 WBC (Bld) 8 % High 1-7 M [facility] Comment on above: Performed By: #### B ROSSI, CDP #### [facility] [address] [place] [address] Ppap Coordinator: Rui Strauss DO Neutrophil (Seg) 63 % Normal 36-66 [facility] Comment on above: Performed By: #### Lazaro RICHEY, CDP #### [facility] [address] [place], [place] [address] [place] [address] Ppap Coordinator: Rui Strauss DO Platelet mean volume (Bld) [Entitic vol] 6.5 fL Normal 6.0-12.0 [facility] Comment on above: Performed By: #### Lazaro RICHEY, CDP #### [facility] [address] [place] [address] Ppap Coordinator: Rui Strauss DO Platelets (Bld) [#/Vol] 292 10*3/uL Normal 150-450 [facility] Comment on above: Performed By: #### Lazaro RICHEY, CDP #### [facility] [address] [place] [address] Ppap Coordinator: Rui Strauss DO RBC (Bld) [#/Vol] 3.46 10*6/uL Low 4.0-5.2 [facility] Comment on above: Performed By: #### Lazaro RICHEY, CDP #### [facility] [address] [place] [address] Ppap Coordinator: Rui Strauss DO WBC (Bld) [#/Vol] 6.7 10*3/uL Normal 3.5-11.0 [facility] Comment on above: Performed By: #### B ROSSI, CDP #### [facility] [address] [place] [address] Ppap Coordinator: Rui Strauss DO Abs.Imm.Granulocyte NOT REPORTED Normal 0.00-0.30 [facility] Comment on above: Performed By: #### Lazaro RICHEY, CDP #### [facility] [address] [place] [address] Ppap Coordinator: Rui Strauss DO Auto Diff Performed NOT REPORTED Normal [facility] Comment on above: Performed By: #### B MP, CDP #### [facility] [address] [place] [address] Ppap Coordinator: Rui Strauss DO Immature Granulocyte NOT REPORTED Normal 0 Me [facility] Comment on above: Performed By: #### B MP, CDP #### [facility] [address] [place] [address] Ppap Coordinator: Rui Strauss DO NRBC Automated NOT REPORTED Normal [facility] Comment on above: Performed By: #### B ROSSI, CDP #### [facility] [address] [place] [address] Ppap Coordinator: Rui Strauss DO Platelet Estimate NOT REPORTED Normal [facility] Comment on above: Performed By: #### B ROSSI, CDP #### [facility] [address] [place] [address] Ppap Coordinator: Rui Strauss DO RBC morphology finding Nom (Bld) NOT REPORTED Normal [facility] Comment on above: Performed By: #### B ROSSI, CDP #### [facility] [place] [address] Ppap Coordinator: Rui Strauss DO WBC Morphology NOT REPORTED Normal [facility] Comment on above: Performed By: #### B ROSSI, CDP #### [facility] [place] [address] Ppap Coordinator: Rui Strauss DO MRSA, DNA, Nasalon 1 Specimen Description .NASAL SWAB Normal [facility] Comment on above: Performed By: #### M RSANO #### [facility] [address] [place] [address] Ppap Coordinator: Rui Strauss DO [facility] [address] [place] [address] Ppap Coordinator: Brody Remy MD Microscopic UrinalysisOrdere d By: Taz Gan on 02-15-2021 - [employer] Work Phone: Amorphous, UA NOT REPORTED None [employer] Phone: [phone] Bacteria, UA FEW Abnormal None [employer] Phone: Casts UA NOT REPORTED /LPF [employer] Work Phone: Crystals, UA NOT REPORTED None /HPF [facility] Work Phone: [phone] Epithelial Cells UA 10 TO 20 /HPF [facility] Phone: Interpretation and review of laboratory results Abnormal [employer] Phone: Mucus, UA NOT REPORTED None [facility] Phone: Other Observations UA NOT REPORTED NOT REQ. M [facility] [employer] Work Phone: RBC, UA 0 TO 2 /HPF [facility] [employer] Work Phone: Renal Epithelial, UA NOT REPORTED 0 /HPF [facility] [employer] Work Phone: Trichomonas, UA NOT REPORTED None [facility] Phone: WBC, UA 5 TO 10 /HPF [facility] [employer] Work Phone: Yeast, UA NOT REPORTED None [facility] Phone: [facility] [employer] Work Phone: UA w/Reflex Cultureon 2020 Bilirubin, SemiQt,Ur Negative Normal NEG [facility] Comment on above: Performed By: #### U MICAO, UAX #### [facility] [address] [place] [address] Ppap Coordinator: Rui Strauss DO Blood, Urine Negative Normal NEG [facility] Comment on above: Performed By: #### U MICAO, UAX #### [facility] [address] [place] [facility] [place] [address] Ppap Coordinator: Rui Strauss DO Clarity (U) CLEAR Normal CLEAR [facility] Comment on above: Performed By: #### U MICAO, UAX #### [facility] [address] [facility] [place] [address] Ppap Coordinator: Rui Strauss DO Color (U) YELLOW Normal YEL [facility] Comment on above: Performed By: #### U MICAO, UAX #### [facility] [address] [facility] [place] [address] Ppap Coordinator: Rui Strauss DO Glucose Ql (U) Negative Normal NEG [facility] Comment on above: Performed By: #### U MICAO, UAX #### [facility] [address] [facility] [place] [address] Ppap Coordinator: Rui Strauss DO Ketones Ql (U) Negative Normal NEG [facility] Comment on above: Performed By: #### U MICAO, UAX #### [facility] [address] [facility] [place] [address] Ppap Coordinator: Rui Strauss DO Leukocyte esterase Test strip Ql (U) SMALL Abnormal NEG [facility] Comment on above: Performed By: #### U MICAO, UAX #### [facility] [address] [facility] [place] [address] Ppap Coordinator: Rui Strauss DO Nitrite,Ur Negative Normal NEG [facility] Comment on above: Performed By: #### U MICAO, UAX #### [facility] [address] [facility] [place] [address] Ppap Coordinator: Rui Strauss DO PH,Ur 5.5 Normal 5.0-8.0 [facility] Comment on above: Performed By: #### U SABRAO, UAX #### [facility] [address] [facility] [place] [address] Ppap Coordinator: Rui Strauss DO Protein Ql (U) Negative Normal NEG [facility] Comment on above: Performed By: #### U SABRAO, UAX #### [facility] [address] [place] [address] Ppap Coordinator: Rui Strauss DO Spec. [place],Ur 1.022 Normal 1.000-1.030 [facility] Comment on above: Performed By: #### U SABRAO, UAX #### [facility] [address] [place] [address] Ppap Coordinator: Rui Strauss DO Urobilinogen,Ur Normal Normal NORM [facility] Comment on above: Performed By: #### U JEMIMA, UAX #### [facility] [address] [place] [address] Ppap Coordinator: Rui Strauss DO Comment NOT REPORTED Normal [facility] Comment on above: Performed By: #### U SABRAO, UAX #### [facility] [address] [place] [address] Ppap Coordinator: Rui Strauss DO Urinalysis Reflex to Culture Ordered By: Taz Gan on 02-15-2021 Bilirubin Urine Negative NEGATIVE [employer] Phone: Color, UA YELLOW YELLOW [employer] Work Phone: Glucose, Ur Negative NEGATIVE [employer] Phone: Interpretation and review of laboratory results Abnormal [employer] Phone: Ketones Ql (U) Negative NEGATIVE [employer] Phone: Leukocyte esterase Test strip Ql (U) SMALL Abnormal NEGATIVE [employer] Phone: Nitrite, Urine Negative NEGATIVE [employer] Work Phone: pH, UA 5.5 [employer] Work Phone: Protein, UA Negative NEGATIVE [employer] Phone: Specific [place], UA 1.022 [employer] Work Phone: Turbidity UA CLEAR CLEAR [employer] Work Phone: Urinalysis Comments NOT REPORTED [facility] [employer] Work Phone: Urine Hgb Negative NEGATIVE [employer] Phone: Urobilinogen, Urine Normal Normal [facility] Phone: [employer] Phone: Urinalysis,Microon 1 ----- Normal [facility] Comment on above: Performed By: #### AWAIS ALMAZANX #### [facility] [address] [place] [address] Ppap Coordinator: Rui Strauss DO Bacteria FEW Abnormal NONE [facility] Comment on above: Performed By: #### AWAIS ALMAZANX #### [facility] [address] [place] [address] Ppap Coordinator: Rui Strauss DO Epithelial cells LM Ql (Urine sed) 10 TO 20 Normal [facility] Comment on above: Performed By: #### AWAIS ALMAZANX #### [facility] [address] [place] [address] Ppap Coordinator: Rui Strauss DO Urine RBC's 0 TO 2 Normal [facility] Comment on above: Performed By: #### AWAIS ALMAZANX #### [facility] [address] [facility] [place] [address] Ppap Coordinator: Rui Strauss DO Urine WBC's 5 TO 10 Normal [facility] Comment on above: Performed By: #### U SABRAO, UAX #### [facility] [address] [facility] [place] [address] Ppap Coordinator: Rui Strauss DO Amorphous sediment LM Ql (Urine sed) NOT REPORTED Normal NONE [facility] Comment on above: Performed By: #### U JEMIMA UAX #### [facility] [place] [address] Ppap Coordinator: Rui Strauss DO Casts NOT REPORTED Normal [facility] Comment on above: Performed By: #### Tony ONOFRE UAX #### [facility] [place] [address] Ppap Coordinator: Rui Strauss DO Crystals LM Nom (Urine sed) NOT REPORTED Normal NONE [facility] Comment on above: Performed By: #### U JEMIMA, UAX #### [facility] [address] [facility] [place] [address] Ppap Coordinator: Rui Strauss DO Epithelial, Renal NOT REPORTED Normal 0 [facility] Comment on above: Performed By: #### U JEMIMA, UAX #### [facility] [address] [facility] [place] [address] Ppap Coordinator: Rui Strauss DO Mucus Strands NOT REPORTED Normal NONE [facility] Comment on above: Performed By: #### U JEMIMA, UAX #### [facility] [address] [facility] [place] [address] Ppap Coordinator: Rui Strauss DO Other Observations NOT REPORTED Normal NREQ [facility] Comment on above: Performed By: #### U MICAO, UAX #### [facility] [address] [facility] [place] [address] Ppap Coordinator: Rui Strauss DO Trichomonas NOT REPORTED Normal NONE [facility] Comment on above: Performed By: #### U MICAO, UAX #### [facility] [address] [facility] [place] [address] Ppap Coordinator: Rui Strauss DO Yeast NOT REPORTED Normal NONE [facility] Comment on above: Performed By: #### U MICAO, UAX #### [facility] [address] [facility] [place] [address] Ppap Coordinator: Rui Strauss DO EKG 12 Leadon 05-21-2020 Atrial Rate 66 BPM [place] P [place] 54 degrees [place] P-R Interval 132 ms [place] Q-T Interval 420 ms [place] QRS Duration 100 ms [place] QTc Calculation ([place]) 440 ms [place] R [place] -89 degrees [facility] [place] -20 degrees [place] Urea nitrogen [Mass/Vol] Normal sinus rhythm Left axis deviation Incomplete right bundle branch block ST & T wave abnormality, consider anterolateral ischemia Abnormal ECG No previous ECGs available [place] Ventricular Rate 66 BPM [place], [facility] Incoming Ekg Results From [facility] - 05/21/2020 9:08 AM EST Normal sinus rhythm Left axis deviation Incomplete right bundle branch block ST & T wave abnormality, consider anterolateral ischemia Abnormal ECG No previous ECGs available [place] MRSA DNA Probe, Nasalon - MRSA, DNA, Nasal NEGATIVE: MRSA DNA not detected by nucleic acid amplification. NEGATIVE: MRSA DNA not detected by nucleic acid amplificati [place] Comment on above: Results should be used as an adjunct to nosocomial control efforts to identify patients needing enhanced precautions. The test is not intended to identify patients with staphylococcal infections. Results should not be used to guide or monitor treatment for MRSA infections. Specimen Description .NASAL SWAB [place] MRSA, DNA, Nasalon 0 MRSA, DNA, Nasal NEGATIVE: MRSA DNA not detected by nucleic acid amplification. Normal NMRSAA [facility] Comment on above: Result Comment: Results should be used as an adjunct to nosocomial control efforts to identify patients needing enhanced precautions. The test is not intended to identify patients with staphylococcal infections. Results should not be used to guide or monitor treatment for MRSA infections. Performed By: #### M RSANO #### [facility] [address] [place] [address] Ppap Coordinator: Rui Strauss DO [facility] [address] [place] [address] Ppap Coordinator: Brody Remy MD Basic Metabolic Panelon 11-0 Anion gap [Moles/Vol] 8 mmol/L Low 9 - 17 mmol/L [place] Bun/Cre Ratio NOT REPORTED [place] Calcium [Mass/Vol] 9.1 mg/dL 8.6 - 10. 4 mg/dL [place] Chloride [Moles/Vol] 102 mmol/L 98 - 10 7 mmol/L [place] CO2 [Moles/Vol] 28 mmol/L 20 - 31 mmol/L [place] Creatinine [Mass/Vol] 0.53 mg/dL 0.5 - 0.9 mg/dL [place] GFR >60 >60 mL/min [place] GFR Non- >60 >60 mL/min [place] GFR/1.73 sq M predicted among non-blacks MDRD (S/P/Bld) [Vol rate/Area] NOT REPORTED [place] GFR/1.73 sq M predicted among non-blacks MDRD (S/P/Bld) [Vol rate/Area] [place] Comment on above: Average GFR for 70 o r more years old: 75 mL/min/1.73sq m Chronic Kidney Disease: <60 mL/min/1.73sq m Kidney failure: <15 mL/min/1.73sq m eGFR calculated using average adult body mass. Additional eGFR calculator available at: http://www.BeiBei/multiple_crcl_2012.htm Glucose [Mass/Vol] 116 mg/dL High 70 - 99 mg/dL [place] Interpretation and review of laboratory results Abnormal [place] Potassium [Moles/Vol] 4.3 mmol/L 3.7 - 5.3 mmol/L [place] Sodium [Moles/Vol] 138 mmol/L 135 - 144 mmol/L [place] Urea nitrogen [Mass/Vol] 12 mg/dL 8 - 23 mg/dL [place] Basic Metabolic Profon 05-19 (cont.) Normal [facility] Comment on above: Result Comment: Aver age GFR for 70 or more years old: 75 mL/min/1.73sq m Chronic Kidney Disease: <60 mL/min/1.73sq m Kidney failure: <15 mL/min/1.73sq m eGFR calculated using average adult body mass. Additional eGFR calculator available at: http://www.BeiBei/multiple_crcl_2012.htm Performed By: #### C CHARLY, BMP #### [facility] [address] [place] [address] Ppap Coordinator: Rui Strauss DO Anion gap [Moles/Vol] 8 mmol/L Low 9-17 [facility] Comment on above: Performed By: #### C CHARLY, BMP #### [facility] [place] [address] Ppap Coordinator: Rui Strauss DO Calcium [Mass/Vol] 9.1 mg/dL Normal 8.6-10.4 [facility] Comment on above: Performed By: #### C CHARLY, BMP #### [facility] [place] [address] Ppap Coordinator: Fanelly, Rui, DO Chloride [Moles/Vol] 102 mmol/L Normal 98-107 [facility] Comment on above: Performed By: #### C DP, BMP #### [facility] [address] [place] [address] Ppap Coordinator: Rui Strauss, DO CO2 [Moles/Vol] 28 mmol/L Normal 20-31 [facility] Comment on above: Performed By: #### C DP, BMP #### [facility] [place] [address] Ppap Coordinator: Rui Strauss, DO Creatinine [Mass/Vol] 0.53 mg/dL Normal 0.50-0.90 [facility] Comment on above: Performed By: #### C DP, BMP #### [facility] [address] [place] [address] Ppap Coordinator: Rui Strauss, DO GFR, Amer >60 Normal >60 [facility] Comment on above: Performed By: #### C DP, BMP #### [facility] [place] [address] Ppap Coordinator: Rui Strauss DO GFR,non Amer >60 Normal >60 [facility] Comment on above: Performed By: #### C DP, BMP #### [facility] [address] [place] [address] Ppap Coordinator: Rui Strauss DO Glucose [Mass/Vol] 116 mg/dL High 70-99 [facility] Comment on above: Performed By: #### C DP, BMP #### [facility] [address] [place] [address] Ppap Coordinator: Rui Strauss DO Potassium [Moles/Vol] 4.3 mmol/L Normal 3.7-5.3 [facility] Comment on above: Performed By: #### C DP, BMP #### [facility] [address] [place] [facility] [place] [address] Ppap Coordinator: Rui Strauss DO Sodium [Moles/Vol] 138 mmol/L Normal 135-144 [facility] Comment on above: Performed By: #### C DP, BMP #### [facility] [address] [facility] [place] [address] Ppap Coordinator: Riu Strauss DO Urea nitrogen [Mass/Vol] 12 mg/dL Normal 8-23 [facility] Comment on above: Performed By: #### C DP, BMP #### [facility] [address] [facility] [place] [address] Ppap Coordinator: Rui Strauss DO BUN/CRE Ratio NOT REPORTED Normal 9-20 [facility] Comment on above: Performed By: #### C DP, BMP #### [facility] [address] [facility] [place] [address] Ppap Coordinator: Rui Strauss DO Staging: NOT REPORTED Normal [facility] Comment on above: Performed By: #### C DP, BMP #### [facility] [address] [facility] [place] [address] Ppap Coordinator: Rui Strauss DO CBC Auto Differentialon 11-0 Basophils (Bld) [#/Vol] 0.00 10*3/uL [place] Basophils/100 WBC (Bld) 1 % 0 - 2 % [place] Differential Type NOT REPORTED [place] Eosinophils (Bld) [#/Vol] 0.10 10*3/uL [place] Eosinophils/100 WBC (Bld) 2 % 0 - 4 % [place] Erythrocyte distribution width (RBC) [Ratio] 15.8 % High 11.5 - 14.9 % [place] Hematocrit (Bld) [Volume fraction] 41.2 % 36 - 46 % [place] Hemoglobin (Bld) [Mass/Vol] 14.0 g/dL 12 - 16 g/dL [place] Interpretation and review of laboratory results Abnormal [place] Lymphocytes (Bld) [#/Vol] 1.90 10*3/uL [place] Lymphocytes/100 WBC (Bld) 26 % 24 - 44 % [place] MCH (RBC) [Entitic mass] 32.8 pg 26 - 34 pg [place] MCHC (RBC) [Mass/Vol] 34.0 g/dL 31 - 37 g/dL M [place] MCV (RBC) [Entitic vol] 96.3 fL 80 - 100 fL [place] Monocytes (Bld) [#/Vol] 0.80 10*3/uL [place] Monocytes/100 WBC (Bld) 10 % High 1 - 7 % [place] Platelet mean volume (Bld) [Entitic vol] 6.5 fL 6 - 12 fL [place] Platelets (Bld) [#/Vol] NOT REPORTED [place] Platelets (Bld) [#/Vol] 299 10*3/uL [place] RBC (Bld) [#/Vol] 4.28 10*6/uL 4 - 5.2 m/uL [place] RBC morphology finding Nom (Bld) NOT REPORTED [place] Segmented neutrophils/100 WBC (Bld) 61 % 36 - 66 % [place] Segs Absolute 4.50 [place] WBC (Bld) [#/Vol] 7.3 10*3/uL [place] WBC (Bld) [#/Vol] NOT REPORTED per 100 WBC [place] WBC Morphology NOT REPORTED [place] CBC with Diffon 05-19-2020 Abs. Basophil 0.00 k/uL Normal 0.0-0.2 [facility] Comment on above: Performed By: #### C DP, BMP #### [facility] [address] [place] [address] Ppap Coordinator: Rui Strauss DO Abs.Neutrophil (Seg) 4.50 k/uL Normal 1.3-9.1 [facility] Comment on above: Performed By: #### C DP, BMP #### [facility] [address] [place] [address] Ppap Coordinator: Rui Strauss DO Basophils/100 WBC (Bld) 1 % Normal 0-2 [facility] Comment on above: Performed By: #### C DP, BMP #### [facility] [place] [address] Ppap Coordinator: Rui Strauss DO Eosinophils (Bld) [#/Vol] 0.10 10*3/uL Normal 0.0-0.4 [facility] Comment on above: Performed By: #### C DP, BMP #### [facility] [place] [address] Ppap Coordinator: Rui Strauss DO Eosinophils/100 WBC (Bld) 2 % Normal 0-4 [facility] Comment on above: Performed By: #### C DP, BMP #### [facility] [place] [address] Ppap Coordinator: Rui Strauss DO Erythrocyte distribution width (RBC) [Ratio] 15.8 % High 11.5-14.9 [facility] Comment on above: Performed By: #### C DP, BMP #### [facility] [place] [address] Ppap Coordinator: Rui Strauss DO Hematocrit (Bld) [Volume fraction] 41.2 % Normal 36-46 [facility] Comment on above: Performed By: #### C DP, BMP #### [facility] [place] [address] Ppap Coordinator: Rui Strauss DO Hemoglobin (Bld) [Mass/Vol] 14.0 g/dL Normal 12.0-16.0 [facility] Comment on above: Performed By: #### C DP, BMP #### [facility] [place] [address] Ppap Coordinator: Rui Strauss DO Lymphocytes (Bld) [#/Vol] 1.90 10*3/uL Normal 1.0-4.8 [facility] Comment on above: Performed By: #### C DP, BMP #### [facility] [address] [place] [address] Ppap Coordinator: Rui Strauss DO Lymphocytes/100 WBC (Bld) 26 % Normal 24-44 [facility] Comment on above: Performed By: #### C CHARLY, BMP #### [facility] [address] [place] [address] Ppap Coordinator: Rui Strauss DO MCH (RBC) [Entitic mass] 32.8 pg Normal 26-34 [facility] Comment on above: Performed By: #### C DP, BMP #### [facility] [address] [place] [address] Ppap Coordinator: Rui Strauss DO MCHC (RBC) [Mass/Vol] 34.0 g/dL Normal 31-37 [facility] Comment on above: Performed By: #### C DP, BMP #### [facility] [address] [place] [address] Ppap Coordinator: Rui Strauss DO MCV (RBC) [Entitic vol] 96.3 fL Normal 80-100 M [facility] Comment on above: Performed By: #### C DP, BMP #### [facility] [address] [place] [address] Ppap Coordinator: Rui Strauss DO Monocytes (Bld) [#/Vol] 0.80 10*3/uL Normal 0.1-1.3 [facility] Comment on above: Performed By: #### C DP, BMP #### [facility] [address] [place] [address] Ppap Coordinator: Rui Strauss DO Monocytes/100 WBC (Bld) 10 % High 1-7 M [facility] Comment on above: Performed By: #### C DP, BMP #### [facility] [address] [place] [address] Ppap Coordinator: Rui Strauss DO Neutrophil (Seg) 61 % Normal 36-66 [facility] Comment on above: Performed By: #### C DP, BMP #### [facility] [facility] [place] [address] Ppap Coordinator: Rui Strauss DO Platelet mean volume (Bld) [Entitic vol] 6.5 fL Normal 6.0-12.0 [facility] Comment on above: Performed By: #### C DP, BMP #### [facility] [place] [address] Ppap Coordinator: Rui Strauss DO Platelets (Bld) [#/Vol] 299 10*3/uL Normal 150-450 [facility] Comment on above: Performed By: #### C DP, BMP #### [facility] [address] [facility] [place] [address] Ppap Coordinator: Rui Strauss DO RBC (Bld) [#/Vol] 4.28 10*6/uL Normal 4.0-5.2 [facility] Comment on above: Performed By: #### C DP, BMP #### [facility] [address] [place] [address] Ppap Coordinator: Rui Strauss DO WBC (Bld) [#/Vol] 7.3 10*3/uL Normal 3.5-11.0 [facility] Comment on above: Performed By: #### C DP, BMP #### [facility] [address] [place] [address] Ppap Coordinator: Rui Strauss DO Abs.Imm.Granulocyte NOT REPORTED Normal 0.00-0.30 [facility] Comment on above: Performed By: #### C DP, BMP #### [facility] [address] [place] [address] Ppap Coordinator: Rui Strauss DO Auto Diff Performed NOT REPORTED Normal [facility] Comment on above: Performed By: #### C DP, BMP #### [facility] [address] [place] [address] Ppap Coordinator: Rui Strauss DO Immature Granulocyte NOT REPORTED Normal 0 [facility] Comment on above: Performed By: #### C DP, BMP #### [facility] [address] [place] [address] Ppap Coordinator: Rui Strauss DO NRBC Automated NOT REPORTED Normal [facility] Comment on above: Performed By: #### C DP, BMP #### [facility] [address] [place] [address] Ppap Coordinator: Rui Strauss DO Platelet Estimate NOT REPORTED Normal [facility] Comment on above: Performed By: #### C DP, BMP #### [facility] [address] [place] [address] Ppap Coordinator: Rui Strauss DO RBC morphology finding Nom (Bld) NOT REPORTED Normal [facility] Comment on above: Performed By: #### C DP, BMP #### [facility] [address] [place] [address] [place] [address] Ppap Coordinator: Rui Strauss DO WBC Morphology NOT REPORTED Normal [facility] Comment on above: Performed By: #### C DP, BMP #### [facility] [address] [place] [address] Ppap Coordinator: Rui Strauss DO MRSA, DNA, Nasalon 0 Specimen Description .NASAL SWAB Normal [facility] Comment on above: Performed By: #### M RSANO #### [facility] [address] [place] [address] Ppap Coordinator: Rui Strauss DO [address] [address] Ppap Coordinator: Brody Remy MD Microscopic Urinalysison Amorphous, UA NOT REPORTED None [place] Bacteria, UA FEW Abnormal None [facility] [place] Casts UA NOT REPORTED /LPF [place] Crystals, UA NOT REPORTED None /HPF [place] Epithelial Cells UA 2 TO 5 /HPF [place] Interpretation and review of laboratory results Abnormal [place] Mucus, UA NOT REPORTED None [place] Other Observations UA NOT REPORTED NOT REQ. M [facility] RBC (U) [#/Vol] 0 TO 2 /HPF [place] Renal Epithelial, UA NOT REPORTED 0 /HPF Me [facility] [place] Trichomonas, UA NOT REPORTED None [place] WBC, UA 2 TO 5 /HPF [place] Yeast, UA NOT REPORTED None [place] - [facility] [place] Otheron 05-19-2020 Immature granulocytes (Bld) [#/Vol] NOT REPORTED [place] UA w/Reflex Cultureon 2019 Acetoacetic Acid,Ur Negative Normal NEG [facility] Comment on above: Performed By: #### U AX, UMICAO #### [facility] [address] [place] [address] Ppap Coordinator: Riu Strauss DO Bilirubin, SemiQt,Ur Negative Normal NEG [facility] Comment on above: Performed By: #### U AX UMYAMILKAO #### [facility] [address] [place] [address] Ppap Coordinator: Rui Strauss DO Color (U) YELLOW Normal YEL [facility] Comment on above: Performed By: #### U AXMICKIO #### [facility] [address] [place] [address] Ppap Coordinator: Rui Strauss DO Glucose Ql (U) Negative Normal NEG [facility] Comment on above: Performed By: #### MICKI ACO #### [facility] [address] [place] [address] Ppap Coordinator: Rui Strauss DO Hemoglobin, Ur Negative Normal NEG [facility] Comment on above: Performed By: #### U AXMICKIO #### [facility] [address] [place] [address] Ppap Coordinator: Rui Strauss DO Leukocyte esterase Test strip Ql (U) TRACE Abnormal NEG [facility] Comment on above: Performed By: #### U AX UMICAO #### [facility] [address] [place] [address] Ppap Coordinator: Rui Strauss DO Nitrite,Ur Negative Normal NEG [facility] Comment on above: Performed By: #### U AX UMICAO #### [facility] [address] [place] [address] Ppap Coordinator: Rui Strauss DO PH,Ur 6.5 Normal 5.0-8.0 [facility] Comment on above: Performed By: #### U AXKIRSTEN #### [facility] [address] [place] [address] Ppap Coordinator: Rui Strauss DO Protein Ql (U) Negative Normal NEG [facility] Comment on above: Performed By: #### KIRSTEN AC #### [facility] [place] [address] Ppap Coordinator: Rui Strauss DO Spec. [place],Ur 1.011 Normal 1.000-1.030 [facility] Comment on above: Performed By: #### KIRSTEN AC #### [facility] [address] [place] [address] Ppap Coordinator: Rui Strauss DO Turbidity CLEAR Normal CLEAR [facility] Comment on above: Performed By: #### KIRSTEN AC #### [facility] [address] [place] [address] Ppap Coordinator: Rui Strauss DO Urobilinogen,Ur Normal Normal NORM [facility] Comment on above: Performed By: #### KIRSTEN AC #### [facility] [address] [place] [address] Ppap Coordinator: Rui Strauss DO Comment NOT REPORTED Normal [facility] Comment on above: Performed By: #### U KIRSTEN PAIGE #### [facility] [address] [place] [address] Ppap Coordinator: Rui Strauss DO Urinalysis Reflex to Culture on 05-19-2020 Bilirubin Urine Negative NEGATIVE [facility] [place] Color, UA YELLOW YELLOW [facility] [place] Glucose, Ur Negative NEGATIVE [facility] [place] Interpretation and review of laboratory results Abnormal [facility] [place] Ketones Ql (U) Negative NEGATIVE [facility] [place] Leukocyte esterase Test strip Ql (U) TRACE Abnormal NEGATIVE [facility] [place] Nitrite, Urine Negative NEGATIVE [facility] [place] pH, UA 6.5 [place] Protein (U) [Mass/Vol] Negative NEGATIVE Me [facility] [place] Specific [place], UA 1.011 [place] Turbidity UA CLEAR CLEAR [place] Urinalysis Comments NOT REPORTED [place] Urine Hgb Negative NEGATIVE [place] Urobilinogen, Urine Normal Normal [place] Urinalysis,Microon 0 ----- Normal [facility] Comment on above: Performed By: #### KIRSTEN AC #### [facility] [address] [place] [address] Ppap Coordinator: Rui Strauss DO Bacteria FEW Abnormal NONE [facility] Comment on above: Performed By: #### KIRSTEN AC #### [facility] [address] [place] [address] Ppap Coordinator: Rui Staruss DO Epithelial cells LM Ql (Urine sed) 2 TO 5 Normal [facility] Comment on above: Performed By: #### KIRSTEN AC #### [facility] [address] [place] [address] Ppap Coordinator: Rui Strauss DO Urine RBC's 0 TO 2 Normal [facility] Comment on above: Performed By: #### KIRSTEN AC #### [facility] [address] [place] [address] Ppap Coordinator: Rui Strauss DO Urine WBC's 2 TO 5 Normal [facility] Comment on above: Performed By: #### KIRSTEN AC #### [facility] [address] [place] [address] Ppap Coordinator: Rui Strauss DO Amorphous sediment LM Ql (Urine sed) NOT REPORTED Normal NONE [facility] Comment on above: Performed By: #### U AX, UMICAO #### [facility] [address] [facility] [place] [address] Ppap Coordinator: Rui Strauss DO Casts NOT REPORTED Normal [facility] Comment on above: Performed By: #### U AX, UMICAO #### [facility] [address] [facility] [place] [address] Ppap Coordinator: Rui Strauss DO Crystals LM Nom (Urine sed) NOT REPORTED Normal NONE [facility] Comment on above: Performed By: #### U AX, UMICAO #### [facility] [address] [facility] [place] [address] Ppap Coordinator: Rui Strauss DO Epithelial, Renal NOT REPORTED Normal 0 [facility] Comment on above: Performed By: #### U AX, UMICAO #### [facility] [address] [facility] [place] [address] Ppap Coordinator: Rui Strauss DO Mucus Strands NOT REPORTED Normal NONE [facility] Comment on above: Performed By: #### U AX, UMICAO #### [facility] [address] [facility] [place] [address] Ppap Coordinator: Rui Strauss DO Other Observations NOT REPORTED Normal NREQ [facility] Comment on above: Performed By: #### U AX, UMICAO #### [facility] [address] [facility] [place] [address] Ppap Coordinator: Rui Strauss DO Trichomonas NOT REPORTED Normal NONE [facility] Comment on above: Performed By: #### U AX, UMICAO #### [facility] [address] [facility] [place] [address] Ppap Coordinator: Rui Strauss DO Yeast NOT REPORTED Normal NONE [facility] Comment on above: Performed By: #### KIRSTEN AC #### [facility] [address] [place] [address] Ppap Coordinator: Rui Strauss DO Vital Signs Date Time Vital Sign Value Performing Clinician Gabriele pena 02-15-2021 11:50-0400 Body height 152.4 cm [facility] [employer] Phone: 02-15-2021 11:50-0400 Body mass index (BMI) [Ratio] 31.25 kg/m2 [facility] [employer] Phone: 02-15-2021 11:50-0400 Body temperature 98.01 [degF] [facility] [employer] Phone: 02-15-2021 11:50-0400 Body weight 72.58 kg [facility] [employer] Phone: 02-15-2021 11:50-0400 Diastolic blood pressure 61 mm[Hg] [facility] [employer] Phone: 02-15-2021 11:50-0400 Heart rate 66 /min [facility] [employer] Phone: 02-15-2021 11:50-0400 Respiratory rate 18 /min [facility] [employer] Phone: 02-15-2021 11:50-0400 SaO2% (BldA) [Mass fraction] 100 % [facility] [employer] Phone: 02-15-2021 11:50-0400 Systolic blood pressure 132 mm[Hg] [facility] [employer] Phone: 05-19-2020 13:09-0500 BMI (Body Mass Index) 33.59 kg/m2 [facility] [employer] [facility] 05-19-2020 13:09-0500 Body Temperature 98.8 [degF] [facility] [place] 05-19-2020 13:09-0500 Body weight 78.02 kg [facility] 1 [facility] , [place] 05-19-2020 13:09-0500 BP Diastolic 69 mm[Hg] [facility] [place] 05-19-2020 13:090500 BP Systolic 139 mm[Hg] [facility] [place] 05-19-2020 13:090500 Height 152.4 cm [facility] 1 [facility] [place] 05-19-2020 13:09-0500 Pulse (Heart Rate) 70 /min [facility] [place] 05-19-2020 13:090500 Pulse Oximetry 95 % [facility] [place] 05-19-2020 13:09-0500 Respiratory Rate 20 /min [facility] [place] Encounters Encounter Date Encounter Type Care Provider [...] Start: 02-15-2021 End: 02-20-2021 ambulatory CHANEL FUENTES [facility] Start: 02-15-2021 End: 02-19-2021 Subsequent hospital visit by physician Navjot Tello Rm 1 [facility] Pre-Admit Testing Start: 05-19-2020 End: 05-24-2020 ambulatory CHANEL FUENTES [facility] Start: 05-19-2020 End: 05-23-2020 Subsequent hospital visit [...] Author Start: 02-15-2022 [facility] Start: 02-15-2022 Potassium monitoring Potassium monit [facility] [employer] Work Phone: Start: 05-19-2021 Creatinine measurement Creatinine mo [place] Start: 05-19-2021 Potassium monitoring Potassium monit [place] Start: 03-16-2021 Influenza vaccination Flu vaccine (# 1) [employer] Phone: Start: 03-16-2021 End: 03-16-2021 Patient encounter procedure 03/16/2021 Office Visit Orthopedic Surgery Chanel Fuentes MD [address] [address] [phone] [facility] Start: 03-01-2021 End: 03-01-2021 Admission to same day surgery center 03/01/2021 Surgery IP Unit Chanel Fuentes MD [address] [address] [phone] KNEE TOTAL ARTHROPLASTY [facility] Comment on above: KNEE TOTAL ARTHROPLA STY Start: 03-01-2021 Subsequent hospital visit by physician 03/01/2021 Hospital Encounter IP Unit Chanel Fuentes MD [address] [id number] [facility] Start: 06-16-2020 End: 06-16-2020 Office Visit 06/16/2020 Office Visit Orthopedic Surgery Chanel Fuentes MD [address] [address] [phone] [facility] Start: 06-01-2020 End: 06-01-2020 Hospital Encounter [facility] Comment on above: KNEE TOTAL ARTHROPLA [facility] Start: 05-28-2020 End: 05-28-2020 Appointment 05/28/2020 Appointment Pre-Admission Testing [facility] PRE-ADMIT TESTING Start: 03-29-2020 Annual Wellness Visi t (AWV) Annual Wellness Visit (AWV) [place] Start: 03-16-2020 Influenza vaccination Flu vaccine (# 1) [place] Start: 11-18-1998 Screening for osteoporosis DEXA (modify frequency per FRAX score) [place] Start: 11-18-1993 Shingles Vaccine (1 of 2) Shingles Vaccine (1 of 2) [place] Start: 11-18-1962 DTaP/Tdap/Td vaccine (1 - Tdap) DTaP/Tdap/Td vaccine (1 - Tdap) [place] Start: 11-18-1953 Lipid panel Lipid screen [place], [place] Start: 1945 Hepatitis C screening Hepatitis C sc reen [facility] Work Phone: Immunizations Immunization Date Immunization Notes Care Provider Fa anjum 05-13-2004 influenza virus vacc ine, unspecified formulation [facility] [place] Payers Date Payer Category Payer Medicare [id number] 1959 Private Health Insurance CLI [id number] 1959 Self-pay [id number] 1943 Unknown [id number] 2.16.8 [id number] 1943 Unknown [id number] 2.16.8 [id number] 1943 Unknown [id number] 2.16.84 [id number] 1943 Unknown [id number] 2.16.84 [id number] 1943 Unknown [id number] 2.16.84 [id number] 1943 Unknown [id number] 2.16.84 [id number] 1943 Unknown [id number] 2.16.84 [id number] 1943 Unknown [id number] 2.16.84 [id number] 1943 Unknown [id number] 2.16.84 [id number] 1943 Unknown [id number] 2.16.84 [id number] 1943 Unknown [id number] 2.16.84 [id number] 1943 Unknown [id number] 2.16.84 [id number] Social History Date Type Detail Facility Start: 05-19-2020 End: 02-15-2021 Tobacco smoking status NHIS Never sm[place] Start: 05-19-2020 End: 02-15-2021 Tobacco use and exposure Never used [place] Start: 05-19-2020 End: 02-15-2021 Alcohol intake Lifetime non-drinker (finding) [place] Start: 05-19-2020 History SDOH Alcohol Frequency 1 [place] Start: 1945 Sex Assigned At Not on file M [place], [place] Exposure to SARS-CoV -2 (event) Not sure [place] Hospital Discharge instructions 02-15-2021 Instructions Note [...] powder, deodorant, jewelry, piercings, perfume, makeup, nail kyrgyz, hair accessories, or hair spray on the [...] hospital. The Day of Surgery: Arrive at [facility] Surgery Entrance at the time directed by your surgeon and check in at the desk. If you have a living will or healthcare power of corporate associate attorney, please bring a copy. You will be taken to the pre-op holding area where you will be prepared for surgery. A physical assessment will be performed by a nurse practitioner or lodging house keeper. Your IV will be started and you [...] in recovery room. documented in this encounter [employer] Phone: History of Present illness Narrative 02-15-2021 Renetta Vieyra RN - 02/15/2021 11:30 AM EDT Note Date & Type Note Facility 02-15-2021 History of Present illness Narrative Dr. Gan, anesthesia, was contacted and informed of the patient's planned surgery, history, and unconfirmed abnormal EKG results from EKG done today in [facility]. Also reviewed stress test and echo from 05/2020 from [facility]. Medical clearance required. Surgery scheduling will notify Dr. Fuentes's office who will be responsible for making sure the clearance is obtained and is in the chart for surgery. documented in this encounter [employer] Phone: Discharge Instructions * Instructions* Amelia Renee [...] powder, deodorant, jewelry, piercings, perfume, makeup, nail kyrgyz, hair accessories, or hair spray on the day of surgery. Wear loose comfortable clothing. 4. Leave your valuables at home. Bring a storage case for any glasses/contacts. The Day of Surgery: Arrive at [facility] Surgery Entrance at the time directed by your surgeon and check in at the desk. If you have a living will or healthcare power of corporate associate attorney, please bring a copy. You will be taken to the pre-op holding area where you will be prepared for surgery. A physical assessment will be performed by a nurse practitioner or lodging house keeper. Your IV will be started and you [...] EKG results from EKG done today in [facility]. Medical clearance required. Surgery scheduling will notify Dr. Fuentes's office who will be responsible for making sure the clearance is obtained and is in the chart for surgery. 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 [employer] [facility]. provides no warranty or guarantee of the accuracy or completeness of information in this document.
--- NOTE | 2024-04-14 13:43 | XR_ITS ---
The [address] [address] Patient Name: JERRY FINNEY MRN: [id number] date: 1945 Sex: F Assigned Patient Location: [place] Current Patient Location: [place] Accession/Order Number: [id number] Exam Date: 04/14/2024 14:10 Report Date: 04/14/2024 14:29 At the request of: MARISEL LEGER Procedure: XR chest 1V EXAMINATION: XR chest 1V HISTORY: surgery COMPARISON: XR chest 03/23/2023 FINDINGS: LUNGS: No significant pulmonary parenchymal abnormalities. VASCULATURE: No increased pulmonary vasculature. PLEURA: No pneumothorax, effusion, or pleural thickening. CARDIAC: No cardiomegaly or cardiac silhouette abnormality. MEDIASTINUM: No visible mass or adenopathy. BONES: No fracture or visible bone lesion. OTHER: Negative. XR/XR chest 1V IMPRESSION: 1. No acute cardiopulmonary process. Electronically authenticated by: SURYA MONTEMAYOR Date: 04/14/2024 14:29
--- NOTE | 2024-04-14 13:54 | SWNOTE1 ---
Pt is from [facility].
[2024-04-14 14:00] LABS: Troponin I High Sensitivity 18.6 pg/mL (4.0-51.3)
--- NOTE | 2024-04-14 14:02 | P.HP_ITS ---
HPI H&P: HPI History of Present Illness Chief complaint: GENERAL WEAKNESS/RIGHT HIP FRACTURE Narrative: Last week the family noticed that patient was not moving her leg as much. X-ray was obtained late , resulted Sunday morning with the hip fracture but not displaced, case was discussed with Ortho uncertain of the timing of when this happened. Previous pelvis x-rays did not show the fracture. Since it is not displaced, plan was to do a CT scan on Sunday, today, and then see orthopedics at that time for disposition and timing of surgery. CT scan completed this morning shows now a displaced right femur fracture. Patient admitted for surgical intervention Opioid HPI Opioid Management Most Recent Pain and Opioid Data: Last Pain Scale 4 04/14/24 11:15 Last Pain Intensity 8 06/09/23 09:20 Last Pain Assessment 04/14/24 13:00 Last ED Pain Assessment 04/14/24 11:15 Last MAR Pain Assessment 04/14/24 10:41 Last ORT Total Score 0 04/14/24 12:46 Last ORT Risk Category Low Risk 04/14/24 12:46 Review of Systems ROS Status of ROS 10 or more systems reviewed and unremark able except as noted in history and below [facility] Medical History (Updated 04/14/24 @ 11:25 by Atilio Arreola MD) Chronic knee pain ?M25.569 - Pain in unspecified knee (ICD-10) ?G89.29 - Other chronic pain (ICD-10) Chronic lower back pain ?M54.50 - Low back pain, unspecified (ICD-10) ?G89.29 - Other chronic pain (ICD-10) Wheelchair dependence ?Z99.3 - Dependence on wheelchair (ICD-10) Hypothyroid ?E03.9 - Hypothyroidism, unspecified (ICD-10) HLD (hyperlipidemia) ?E78.5 - Hyperlipidemia, unspecified (ICD-10) Compression fx, lumbar spine ?S32.000A - Wedge compression fracture of unspecified lumbar vertebra, in itial encounter for closed fracture (ICD-10) Acute kidney injury ?N17.9 - Acute kidney failure, unspecified (ICD-10) Acute UTI ?N39.0 - Urinary tract infection, site not specified (ICD-10) Nausea vomiting and diarrhea ?R11.2 - Nausea with vomiting, unspecified (ICD-10) ?R19.7 - Diarrhea, unspecified (ICD-10) Leukocytosis ?D72.829 - Elevated white blood cell count, unspecified (ICD-10) Fall ?W19.XXXA - Unspecified fall, initial encounter (ICD-10) Low back pain ?M54.50 - Low back pain, unspecified (ICD-10) B12 deficiency ?E53.8 - Deficiency of other specified B group vitamins (ICD-10) Ventral hernia ?K43.9 - Ventral hernia without obstruction or gangrene (ICD-10) Compression fracture of L5 vertebra ?S32.050A - Wedge compression fracture of fifth lumbar vertebra, initial encounter for closed fracture (ICD-10) Anxiety ?F41.9 - Anxiety disorder, unspecified (ICD-10) Hypertension ?I10 - Essential (primary) hypertension (ICD-10) Graves disease ?E05.00 - Thyrotoxicosis with diffuse goiter without thyrotoxic crisis or storm (ICD-10) Osteopenia ?M85.80 - Other specified disorders of bone density and structure, unspecified site (ICD-10) Small bowel obstruction ?K56.609 - Unspecified intestinal obstruction, unspecified as to partial versus complete obstruction (ICD-10) Diverticula of colon ?K57.30 - Diverticulosis of large intestine without perforation or abscess without bleeding (ICD-10) Arthritis ?M19.90 - Unspecified osteoarthritis, unspecified site (ICD-10) Cervical radiculopathy ?M54.12 - Radiculopathy, cervical region (ICD-10) Type 2 diabetes mellitus ?E11.9 - Type 2 diabetes mellitus without complications (ICD-10) Bronchitis ?J40 - Bronchitis, not specified as acute or chronic (ICD-10) Upper respiratory infection ?J06.9 - Acute upper respiratory infection, unspecified (ICD-10) Surgical History (Updated 05/29/23 @ 11:44 by Mae Escoto RN) History of colon resection ?Z90.49 - Acquired absence of other specified parts of digestive tract (ICD- 10) History of cholecystectomy ?Z90.49 - Acquired absence of other specified parts of digestive tract (ICD- 10) Family History (Updated 03/25/24 @ 16:48 by Kierra Doss) Father Family history of myocardial infarction Sister Family history of stroke Other Family history of CHF (congestive heart failure) Family history of cancer Family history of diabetes mellitus Family history of hypertension Social History (Updated 03/25/24 @ 16:49 by Kierra Doss) Within the past year, how often did you have a drink containing alcohol: never Within the past year, how many standard drinks containing alcohol did you have on a typical day: 1 or 2 Within the past year, how often did you have six or more drinks on one occasion: never Total score: 0 Score interpretation: A score less than 3 is consistent with normal alcohol consumption. Smoking status: Never smoker Non-prescribed substance use: denies use Highest level of school completed/degree received: high school graduate In a typical week, how many times do you talk on the telephone with family, friends, or neighbors: 3 or more times per week How often do you get together with friends or relatives: 3 or more times per week How often do you attend episcopalian or advent services: 4 or more times per year Do you belong to any clubs or organizations such as episcopalian groups unions, [employer] or athletic groups, or school groups: yes Feel stressed/tense/nervous/anxious/difficulty sleeping: rather much Gender Identity: female Meds Home Medications and Allergies Home Medications ?Medication ?Instructions ?Recorded ?Confirmed ?Type levothyroxine 112 mcg tablet 112 mcg PO .before breakfast 05/29/23 04/14/24 History lisinopril 10 mg tablet 10 mg PO DAILY 05/29/23 04/14/24 History simvastatin 40 mg tablet 40 mg PO DAILY 05/29/23 04/14/24 History acetaminophen 325 mg tablet 650 mg (2 x 325 mg) PO Q4H PRN 03/29/24 04/14/24 Rx Pain 1-4 #30 tabs calcitonin (salmon) 200 1 spray intranasal QD #3.7 mL 03/29/24 04/14/24 Rx unit/actuation nasal spray calcium carbonate 600 mg PO TID #30 tabs 03/29/24 04/14/24 Rx cetirizine 10 mg tablet 10 mg PO DAILY #30 tabs 03/29/24 04/14/24 Rx docusate sodium 100 mg capsule 100 mg PO BID PRN Constipation #30 03/29/24 04/14/24 Rx caps hydroxyzine pamoate 25 mg capsule 25 mg PO QID PRN Anxiety #30 caps 03/29/24 04/14/24 Rx hyoscyamine sulfate 0.125 mg 0.125 mg sublingual QID PRN 03/29/24 04/14/24 Rx sublingual tablet Cramping #30 tabs tramadol 50 mg tablet 50 mg PO Q8H PRN pain 2 days #6 03/29/24 04/14/24 Rx tabs zinc oxide 40 % topical ointment 1 applic topical QID PRN 03/29/24 04/14/24 Rx (Diaper Rash) Irritation #57 grams Allergies Allergy/AdvReac Type Severity Reaction Status Date / Time Iodinated Contrast Media Allergy Unknown Verified 05/29/23 11:34 diclofenac Allergy Verified 05/29/23 11:34 [From Arthrotec 50] misoprostol Allergy Verified 05/29/23 11:34 [From Arthrote 50] levofloxacin AdvReac Intermediate Hives Verified 05/29/23 11:34 Penicillins AdvReac Intermediate Verified 05/29/23 11:34 Exam Constitutional Vital Signs, click to edit/add: Last Vital Signs Temp 98.7 F 04/14/24 12:46 Pulse 84 04/14/24 12:46 Resp 22 H 04/14/24 12:46 BP 130/77 04/14/24 12:46 Pulse Ox 95 04/14/24 12:46 O2 Del Method Room Air 04/14/24 12:46 Documenting provider has reviewed patient's vital signs: yes Common normals: apparent distress (Patient anxious) Chest Common normals: inspection of chest normal and palpation of chest normal Respiratory Common normals: no retractions, no use of accessory muscles and clear to auscultation bilaterally Auscultation: diminished lung sounds (Shallow breathing likely somewhat sedated from pain medications) Cardio Common normals: regular rate and regular rhythm Extremity Common normals: normal to inspection and no clubbing, cyanosis or edema; limited ROM (Right hip pain on palpation) Results Labs Labs: Short CBC 04/14/24 Range/Units 10:23 WBC 15.7 H (4.0-11.0) 10^3/uL Hgb 11.5 L (12.0-16.0) g/dL Hct 34.5 L (36.0-48.0) % Plt Count 447 (150-450) 10^3/uL BMP 04/14/24 10:23 Sodium 122 L* Potassium 5.2 H Chloride 90 L Carbon Dioxide 27.4 BUN 36.0 H Creatinine 1.35 H Glucose 122 H Calcium 9.2 Assessment and Plan Assessment and Plan (1) Hip fracture, right: (2) Ambulatory dysfunction: (3) Hypothyroid: Qualifiers: Hypothyroidism type: unspecified Qualified Code(s): E03.9 - Hy pothyroidism, unspecified (4) Acute kidney injury: (5) Leukocytosis: (6) Anxiety: (7) Hypertension: Qualifiers: Hypertension type: primary hypertension Qualified Code(s): I10 - Essential (primary) hypertension (8) Osteopenia: (9) Type 2 diabetes mellitus: Plan Admission findings: Acute kidney injury with creatinine 150% above baseline (baseline creatinine of 0.9, admission creatinine 1.35 equals 150% above baseline). Leukocytosis, significant hyponatremia, hyperkalemia, elevated hemoglobin for her, normally she runs upper 8 to low nines, she is over 11 currently. Electrolyte lab abnormalities consistent with dehydration. Will repeat labs to confirm, if sodium is in the low will give 1 L fluid bolus and repeat Chem-8 post infusion EKG without acute changes-she shows right bundle branch block and there is no significant change from EKG done last May History of acute combined congestive heart failure on top of chronic congestive heart failure-outlined as above, hold off on any diuretics, she has no signs of heart failure currently, check troponin and BNP Acute kidney injury with creatinine 150% above baseline-IV hydration repeat labs in a.m. and postop Right femur fracture likely secondary to osteopenia-plan per orthopedics, trying to get patient tuned up for surgery today. Leukocytosis-check urinalysis, could be demargination from pain-repeat CBC Hypothyroidism-continue with home medications Osteopenia-continue with medications Hypertension by history-monitor blood pressure closely, with dehydration may not need her home medications Chronic low back pain-medications as outlined in orders Admission status: Patient with right femur fracture now displaced, acute kidney injury, medically necessary treatment will span 2 midnights. Inpatient status.
[2024-04-14 14:28] LABS: Basophils Percent Auto 0.2 % (0.2-2.0); Eosinophils Percent Auto 0.3 % (0.9-7.0); Hematocrit 34.3 % (36.0-48.0); Hemoglobin 11.5 g/dL (12.0-16.0); Immature Granulocytes Abs Auto 0.08 10^3/uL (0.00-0.03); Immature Granulocytes Pct Auto 0.5 % (0.0-0.5); Lymphocytes Absolute Auto 1.8 10^3/uL (1.2-3.8); Mean Corpuscular HGB Conc 33.5 g/dL (29.9-35.2); Mean Corpuscular Hemoglobin 29.4 pg (26.7-34.0); Mean Corpuscular Volume 87.7 fL (81.0-99.0); Monocytes Absolute Auto 1.1 10^3/uL (0.3-0.8); Monocytes Percent Auto 7.1 % (1.7-12.0); Neutrophils Percent Auto 79.9 % (43.0-75.0); Platelet Count 464 10^3/uL (150-450); Red Blood Count 3.91 10^6/uL (4.20-5.40)
[2024-04-14 14:41] LABS: Alanine Aminotransferase 27 U/L (14-59); Albumin Globulin Ratio 0.8; Alkaline Phosphatase 159 U/L (46-116); Anion Gap 9.5; Aspartate Amino Transferase 35 U/L (15-37); Bilirubin Total 0.5 mg/dL (0.2-1.0); Calcium 9.1 mg/dL (8.5-10.1); Carbon Dioxide 29.6 mmol/L (21.0-32.0); Chloride 91 mmol/L (98-107); Estimated GFR (African America 47 (>=60); Estimated GFR (Non-African Ame 39 (>=60); Globulin 3.8 g/dL; Glucose 99 mg/dL (74-106); Potassium 5.1 mmol/L (3.5-5.1); Sodium 125 mmol/L (136-145); Total Protein 6.8 g/dL (6.4-8.2)
[2024-04-14] MEDS: HYDROMORPHONE HCL 0.5 MG/0.5 ML SYRINGE IV (14:41)
[2024-04-14] MEDS: 0.9 % SODIUM CHLORIDE 1,000 ML 100 ML IV ×2 (14:42→17:15)
[2024-04-14 14:44] LABS: Lactate/Lactic Acid 1.5 mmol/L (0.4-2.0)
--- NOTE | 2024-04-14 15:01 | SWNOTE1 ---
SW met with pt to discuss dc needs. Pt's daughter in room to answer all questions. Pt has been at [facility] for 2-3 weeks. Pt is here as she has a hip fracture. Daughter had noticed a few days ago that pt's legs were nto right and her mother was acting herself. X-rays were ordered and scan done and pt has fracture. Pt's daughter voiced she is not sure what happened, but is going to get medical records, but wants to focus on the surgery right now. Pt is going to OR today at 5:30. Daughter voiced a few things she is not happy about with [facility], but overall no too bad and plans for pt to return at discharge from hospital. At this time daughter has no further questions and SW to follow as needed. JONAH advised daughter that SW will update the [facility]. Pt is NOT a precert to return.
--- NOTE | 2024-04-14 15:52 | SWNOTE1 ---
Updates sent to [facility].
[2024-04-14] MEDS: TRANEXAMIC ACID 1,000 MG/10 ML AMPUL 1000 MG INJ (17:05)
[2024-04-14] MEDS: CLINDAMYCIN PHOS 900 MG/50 ML D5W PREMIX 100 MG IV (17:05)
[2024-04-14] MEDS: LIDOCAINE HCL 1%-EPINEPHRINE 1:100,000 10 ML MDV 20 ML INJ (18:40)
[2024-04-14] MEDS: BUPIVACAINE HCL 0.5% PF 50 MG/10 ML VIAL INJ (18:40)
--- NOTE | 2024-04-14 18:58 | XR_ITS ---
The [place] [id number] Patient Name: JERRY FINNEY MRN: [id number] date: 1945 Sex: F Assigned Patient Location: MS Current Patient Location: MS Accession/Order Number: [id number] Exam Date: 04/14/2024 20:01 Report Date: 04/14/2024 21:28 At the request of: ZAHRAA HERNANDEZ Procedure: XR hip RT min 2V EXAM: XR hip RT min 2V , 04/14/2024. HISTORY: post op in pacu COMPARISON: Previous x-ray the same day from 04/14/2024 at 11:02 AM. TECHNIQUE: X-rays of the right hip, 2 views in PACU. FINDINGS: Status post ORIF of right femoral neck and greater trochanter fractures with hardware in position and surgical opal noted. Recommend correlation with surgical details. XR/XR hip RT min 2V IMPRESSION: Status post ORIF of right femoral fracture. Electronically authenticated by: RENITA SAMS Date: 04/14/2024 21:28
--- NOTE | 2024-04-14 19:00 | P.ORCN_ITS ---
History of Present Illness [facility] Consult date: 04/14/24 Consult reason: fracture Chief complaint: GENERAL WEAKNESS/RIGHT HIP FRACTURE Narrative: Patient is a 78-year-old female admitted with a right intertrochanteric femur fracture. Patient reportedly has had hip pain for about a week now. Patient fell last Sunday. Had initial x-rays which were negative. Had increasing pain over the past few days and x-rays and CT scan today obtained demonstrated a severely highly comminuted intertrochanteric femur fracture with femoral neck involvement. Patient is present with her daughter at bedside. She is minimally ambulatory at baseline. Patient does not report an actual fall. Denies any numbness or tingling. Review of Systems ROS Status of ROS 10 or more systems reviewed and unremark able except as noted in history and below [facility] Medical History (Updated 04/14/24 @ 11:25 by Atilio Arreola MD) Chronic knee pain ?M25.569 - Pain in unspecified knee (ICD-10) ?G89.29 - Other chronic pain (ICD-10) Chronic lower back pain ?M54.50 - Low back pain, unspecified (ICD-10) ?G89.29 - Other chronic pain (ICD-10) Wheelchair dependence ?Z99.3 - Dependence on wheelchair (ICD-10) Hypothyroid ?E03.9 - Hypothyroidism, unspecified (ICD-10) HLD (hyperlipidemia) ?E78.5 - Hyperlipidemia, unspecified (ICD-10) Compression fx, lumbar spine ?S32.000A - Wedge compression fracture of unspecified lumbar vertebra, initial encounter for closed fracture (ICD-10) Acute kidney injury ?N17.9 - Acute kidney failure, unspecified (ICD-10) Acute UTI ?N39.0 - Urinary tract infection, site not specified (ICD-10) Nausea vomiting and diarrhea ?R11.2 - Nausea with vomiting, unspecified (ICD-10) ?R19.7 - Diarrhea, unspecified (ICD-10) Leukocytosis ?D72.829 - Elevated white blood cell count, unspecified (ICD-10) Fall ?W19.XXXA - Unspecified fall, initial encounter (ICD-10) Low back pain ?M54.50 - Low back pain, unspecified (ICD-10) B12 deficiency ?E53.8 - Deficiency of other specified B group vitamins (ICD-10) Ventral hernia ?K43.9 - Ventral hernia without obstruction or gangrene (ICD-10) Compression fracture of L5 vertebra ?S32.050A - Wedge compression fracture of fifth lumbar vertebra, initial encounter for closed fracture (ICD-10) Anxiety ?F41.9 - Anxiety disorder, unspecified (ICD-10) Hypertension ?I10 - Essential (primary) hypertension (ICD-10) Graves disease ?E05.00 - Thyrotoxicosis with diffuse goiter without thyrotoxic crisis or storm (ICD-10) Osteopenia ?M85.80 - Other specified disorders of bone density and structure, unspecified site (ICD-10) Small bowel obstruction ?K56.609 - Unspecified intestinal obstruction, unspecified as to partial versus complete obstruction (ICD-10) Diverticula of colon ?K57.30 - Diverticulosis of large intestine without perforation or abscess without bleeding (ICD-10) Arthritis ?M19.90 - Unspecified osteoarthritis, unspecified site (ICD-10) Cervical radiculopathy ?M54.12 - Radiculopathy, cervical region (ICD-10) Type 2 diabetes mellitus ?E11.9 - Type 2 diabetes mellitus without complications (ICD-10) Bronchitis ?J40 - Bronchitis, not specified as acute or chronic (ICD-10) Upper respiratory infection ?J06.9 - Acute upper respiratory infection, unspecified (ICD-10) Surgical History (Updated 05/29/23 @ 11:44 by Mae Escoto RN) History of colon resection ?Z90.49 - Acquired absence of other specified parts of digestive tract (ICD-1 0) History of cholecystectomy ?Z90.49 - Acquired absence of other specified parts of digestive tract (ICD- 10) Family History (Updated 03/25/24 @ 16:48 by Kierra Doss) Father Family history of myocardial infarction Sister Family history of stroke Other Family history of CHF (congestive heart failure) Family history of cancer Family history of diabetes mellitus Family history of hypertension Social History (Updated 03/25/24 @ 16:49 by Kierra Doss) Within the past year, how often did you have a drink containing alcohol: never Within the past year, how many standard drinks containing alcohol did you have on a typical day: 1 or 2 Within the past year, how often did you have six or more drinks on one occasion: never Total score: 0 Score interpretation: A score less than 3 is consistent with normal alcohol consumption. Smoking status: Never smoker Non-prescribed substance use: denies use Highest level of school completed/degree received: high school graduate In a typical week, how many times do you talk on the telephone with family, friends, or neighbors: 3 or more times per week How often do you get together with friends or relatives: 3 or more times per week How often do you attend evangelical or mosque services: 4 or more times per year Do you belong to any clubs or organizations such as evangelical groups unions, [employer] or [employer] groups, or school groups: yes Feel stressed/tense/nervous/anxious/difficulty sleeping: rather much Gender Identity: female Meds Home Medications and Allergies Home Medications ?Medication ?Instructions ?Recorded ?Confirmed ?Type levothyroxine 112 mcg tablet 112 mcg PO .before breakfast 05/29/23 04/14/24 History lisinopril 10 mg tablet 10 mg PO DAILY 05/29/23 04/14/24 History simvastatin 40 mg tablet 40 mg PO DAILY 05/29/23 04/14/24 History acetaminophen 325 mg tablet 650 mg (2 x 325 mg) PO Q4H PRN 03/29/24 04/14/24 Rx Pain 1-4 #30 tabs calcitonin (salmon) 200 1 spray intranasal QD #3.7 mL 03/29/24 04/14/24 Rx unit/actuation nasal spray calcium carbonate 600 mg PO TID #30 tabs 03/29/24 04/14/24 Rx cetirizine 10 mg tablet 10 mg PO DAILY #30 tabs 03/29/24 04/14/24 Rx docusate sodium 100 mg capsule 100 mg PO BID PRN Constipation #30 03/29/24 04/14/24 Rx caps hydroxyzine pamoate 25 mg capsule 25 mg PO QID PRN Anxiety #30 caps 03/29/24 04/14/24 Rx hyoscyamine sulfate 0.125 mg 0.125 mg sublingual QID PRN 03/29/24 04/14/24 Rx sublingual tablet Cramping #30 tabs tramadol 50 mg tablet 50 mg PO Q8H PRN pain 2 days #6 03/29/24 04/14/24 Rx tabs zinc oxide 40 % topical ointment 1 applic topical QID PRN 03/29/24 04/14/24 Rx (Diaper Rash) Irritation #57 grams Allergies Allergy/AdvReac Type Severity Reaction Status Date / Time Iodinated Contrast Media Allergy Unknown Verified 05/29/23 11:34 diclofenac Allergy Verified 05/29/23 11:34 [From Arthrotec 50] misoprostol Allergy Verified 05/29/23 11:34 [From Arthrotec 50] levofloxacin AdvReac Intermediate Hives Verified 05/29/23 11:34 Penicillins AdvReac Intermediate Verified 05/29/23 11:34 Exam Narrative Exam Narrative: Right lower extremity: Skin is intact. There is shortening and external rotation to the lower extremity. Tenderness to palpation of the hip. She has no tenderness palpation of the distal femur tibia or ankle. EHL/FHL/GS/TA motor couplet intact. Foot is warm well-perfused. Sensory exam intact Constitutional Vital Signs, click to edit/add: Last Vital Signs Temp 98.7 F 04/14/24 12:46 Pulse 93 H 04/14/24 16:00 Resp 22 H 04/14/24 12:46 BP 130/77 04/14/24 12:46 Pulse Ox 97 04/14/24 15:43 O2 Del Method Room Air 04/14/24 15:43 Results Labs Labs: Abnormal lab results 04/14/24 04/14/24 Range/Units 10:23 14:09 WBC 15.7 H 15.0 H (4.0-11.0) 10^3/uL RBC 3.95 L 3.91 L (4.20-5.40) 10^6/uL Hgb 11.5 L 11.5 L (12.0-16.0) g/dL Hct 34.5 L 34.3 L (36.0-48.0) % Plt Count 464 H (150-450) 10^3/uL MPV 8.0 L 8.0 L (9.5-13.5) fL Neut % (Auto) 86.3 H 79.9 H (43.0-75.0) % Lymph % (Auto) 6.5 L 12.0 L (20.5-60.0) % Eos % (Auto) 0.1 L 0.3 L (0.9-7.0) % Neut # (Auto) 13.6 H 12.0 H (1.4-6.5) 10^3/uL Lymph # (Auto) 1.0 L (1.2-3.8) 10^3/uL [place] # (Auto) 1.0 H 1.1 H (0.3-0.8) 10^3/uL Abs Immat Gran (auto) 0.11 H 0.08 H (0.00-0.03) 10^3/uL Imm/Tot Granulo (auto) 0.7 H (0.0-0.5) % Sodium 122 L* 125 L (136-145) mmol/L Potassium 5.2 H (3.5-5.1) mmol/L Chloride 90 L 91 L (98-107) mmol/L BUN 36.0 H 37.0 H (7.0-18.0) mg/dL Creatinine 1.35 H 1.32 H (0.55-1.02) mg/dL Est GFR ( Amer) 46 L 47 L (>=60) Est GFR (Non-Af Amer) 38 L 39 L (>=60) Glucose 122 H (74-106) mg/dL Alkaline Phosphatase 159 H (46-116) U/L Albumin 3.0 L (3.4-5.0) g/dL H & H 04/14/24 04/14/24 Range/Units 10:23 14:09 Hgb 11.5 L 11.5 L (12.0-16.0) g/dL Hct 34.5 L 34.3 L (36.0-48.0) % All other labs normal. Assessment and Plan Assessment and Plan (1) Hip fracture, right: (2) Ambulatory dysfunction: (3) Hypothyroid: Qualifiers: Hypothyroidism type: unspecified Qualified Code(s): E03.9 - Hypothyroidism, unspecified (4) Acute kidney injury: (5) Leukocytosis: (6) Anxiety: (7) Hypertension: Qualifiers: Hypertension type: primary hypertension Qualified Code(s): I10 - Essential (primary) hypertension (8) Osteopenia: (9) Type 2 diabetes mellitus: Plan Patient is a 78-year-old female sustaining a highly proximal intertrochanteric peritrochanteric femur fracture. Plan 4 OR today for ORIF of right proximal femur fracture. Did discuss indications for surgery with patient and her daughter. We did discuss risk and benefits of surgery. Informed consent obtained at bedside. Right lower extremity marked. Clindamycin on-call to the OR. Postoperative recommendations to follow.
--- NOTE | 2024-04-14 19:05 | PM.ORPRC ---
Procedure Note Date of procedure: 04/14/24 Pre-op diagnosis: Displaced right intertrochanteric femur fracture Post-op diagnosis: same as pre-op Procedure: Patient is a 78-year-old female presenting today for right intertrochanteric femur fracture ORIF. Patient sustained the injury about a week ago. She has had increasing pain. Presented to clinic today where CT scan had been obtained which demonstrate intertrochanteric femur fracture. Patient was sent to the ER where she was admitted. Did meet the patient and her daughter prior to surgery. We did discuss the indications for surgery. Did discuss risks involved. Informed consent obtained. No guarantees were made. Patient was taken to the operative suite where she underwent sedation intubation on the hospital bed without any complications. We then transferred her over to the [place] table where all bony prominences were well-padded and she was placed into the traction spars. We then proceeded to gently pad all bony prominences. We then proceeded to prep and drape the right lower extremity in usual sterile fashion. We had a timeout and the patient, procedure, operative side were confirmed and all were agreement in the OR. We then proceeded to utilize the traction table to obtain a reduction. We utilized traction internal rotation and slight adduction. We are able to obtain a near anatomic reduction. Did note that took considerable amount of traction to reduce the fracture likely due to it being fractured for nearly a week now. We then proceeded to insert our guidepin on the AP and lateral view centered in line with the canal. We then placed the opening reamer. We then proceeded to select a size 12 mm TFN a intermediate nail. The nail was impacted down the canal which had good isthmus fit. Once impacted the appropriate level we then proceeded to place our lag screw guide. We passed our pin maintaining center position of the head on AP and lateral views. We selected a size 95 mm lag screw. We then drilled for the lag screw and inserted the lag screw. During insertion did notice some gapping at the inferior calcar. We then removed traction and attach the traction component to the nail. We then were able to compress this gapping down. This did make the nail slightly prominent laterally however we felt the benefit of obtaining good fracture reduction outweighed this. We then turned our attention distally where we placed a 36 mm interlocking screw through the guide. We then obtained final fluoroscopy views which demonstrated good reduction with intact hardware with no evidence of complication. We then copiously irrigated the wounds with normal saline followed by Irrisept solution followed by a closure with 0 Vicryl, 2-0 Vicryl, opal. Soft sterile dressings were applied. Patient was awoken from anesthesia and taken the PACU in stable condition Plan: Patient will be weightbearing as tolerated. Will obtain postoperative x-rays and recovery unit. 24 hours of postoperative antibiotic prophylaxis. Okay to start DVT prophylaxis postop day 1 with 6 weeks of anticoagulation. Follow-up in the office in 2 weeks with wound check and x-rays. Anesthesia: General-ET Surgeon: Theo Luke Estimated blood loss (mL): 200 IV fluids (mL): 500 Urine output (mL): 1,600 Pathology: none sent Condition: stable Disposition: PACU
[2024-04-14] MEDS: 0.9 % SODIUM CHLORIDE 1,000 ML 500 ML IV (20:11)
[2024-04-15] VITALS (19 sets, daily range): BP systolic 129–146; BP diastolic 63–83; PULSE 70–109; TEMP 36.8–37.2; O2SAT 94–96
[2024-04-15 01:02] LABS: BUN Creatinine Ratio 30.4; Calcium 8.3 mg/dL (8.5-10.1); Carbon Dioxide 27.6 mmol/L (21.0-32.0); Chloride 96 mmol/L (98-107); Estimated GFR (African America 55 (>=60); Estimated GFR (Non-African Ame 45 (>=60); Glucose 101 mg/dL (74-106); Potassium 4.6 mmol/L (3.5-5.1); Sodium 128 mmol/L (136-145)
[2024-04-15] MEDS: HYDROMORPHONE HCL 0.5 MG/0.5 ML SYRINGE IV ×2 (01:12→05:43)
[2024-04-15] MEDS: 0.9 % SODIUM CHLORIDE 1,000 ML 100 ML IV ×2 (02:04→13:59)
[2024-04-15] MEDS: HYDROXYZINE PAMOATE 25 MG CAPSULE PO (02:59)
[2024-04-15 04:18] LABS: Bilirubin Urine NEGATIVE (NEGATIVE); Blood Urine SMALL (NEGATIVE); Clarity Urine CLEAR (CLEAR); Color Urine LT. YELLOW (YELLOW); Glucose Urine UA NEGATIVE (NEGATIVE); Ketones Urine NEGATIVE (NEGATIVE); Leukocyte Esterase Urine SMALL (NEGATIVE); Nitrite Urine NEGATIVE (NEGATIVE); Protein Urine NEGATIVE (NEG/TRACE); pH Urine 6.5 (5.0-9.0)
[2024-04-15 04:25] LABS: Basophils Percent Auto 0.2 % (0.2-2.0); Eosinophils Percent Auto 0.2 % (0.9-7.0); Hematocrit 28.6 % (36.0-48.0); Hemoglobin 9.5 g/dL (12.0-16.0); Immature Granulocytes Abs Auto 0.08 10^3/uL (0.00-0.03); Immature Granulocytes Pct Auto 0.4 % (0.0-0.5); Lymphocytes Percent Auto 5.3 % (20.5-60.0); Mean Corpuscular HGB Conc 33.2 g/dL (29.9-35.2); Mean Corpuscular Hemoglobin 29.2 pg (26.7-34.0); Mean Platelet Volume 7.9 fL (9.5-13.5); Monocytes Absolute Auto 1.2 10^3/uL (0.3-0.8); Monocytes Percent Auto 6.5 % (1.7-12.0); Neutrophils Percent Auto 87.4 % (43.0-75.0); Platelet Count 352 10^3/uL (150-450); Red Blood Count 3.25 10^6/uL (4.20-5.40); Red Cell Distribution Width 13.1 % (11.0-15.0); White Blood Count 18.3 10^3/uL (4.0-11.0)
[2024-04-15 04:28] LABS: Bacteria Urine SMALL #/HPF (NONE SEEN); Cast Seen? NONE SEEN #/LPF (NONE SEEN); Crystals Seen? None Seen #/HPF (None Seen); Mucus Urine NONE SEEN (NONE SEEN); RBC Urine 0-2 #/HPF (0-2); Squamous Epithelial Cell Urine FEW #/LPF (NONE/RARE); Transitional Epi Cells Urine RARE #/LPF (NONE SEEN); Urine Culture Indicated YES
[2024-04-15 04:40] LABS: Anion Gap 9.6; BUN Creatinine Ratio 29.7; Calcium 8.1 mg/dL (8.5-10.1); Carbon Dioxide 26.3 mmol/L (21.0-32.0); Chloride 97 mmol/L (98-107); Estimated GFR (African America 57 (>=60); Estimated GFR (Non-African Ame 47 (>=60); Glucose 97 mg/dL (74-106); Potassium 4.9 mmol/L (3.5-5.1); Sodium 128 mmol/L (136-145)
[2024-04-15] MEDS: LEVOTHYROXINE SODIUM 112 MCG TABLET PO (05:41)
--- NOTE | 2024-04-15 06:36 | PM.ORPN ---
Progress Note: A&P Assessment and Plan (1) Hip fracture, right: Assessment and Plan: POD day #1 right IM nail -WBAT - Hgb 11.5 preop that trended to 9.5 this am secondary to operative losses and fracture, BP stable, mildly tachycardic around 106 but pt visibly anxious on exam - WBC 15.7 preop trending up to 18.3 post op, possibly reactive secondary to fracture -DVT prophylaxis x 6 weeks -Pain control -Follow-up in [address] Luke for staple removal and postop recheck (2) Ambulatory dysfunction: (3) Hypothyroid: Qualifiers: Hypothyroidism type: unspecified Qualified Code(s): E03.9 - Hypothyroidism, unspecified (4) Acute kidney injury: (5) Leukocytosis: (6) Anxiety: (7) Hypertension: Qualifiers: Hypertension type: primary hypertension Qualified Code(s): I10 - Essential (primary) hypertension (8) Osteopenia: (9) Type 2 diabetes mellitus: Subjective Subjective Interval history: Patient is POD day #1 from a right intramedullary nail for her intertrochanteric femur fracture. Per RN patient has been awake all night and mumbling. Baseline patient to me is unknown as family is not at bedside. When asked to follow commands she will say I can't . Exam Narrative Exam Narrative: On exam patient is laying in the bed awake and appears anxious, she is alert but not oriented and does not follow commands. Right thigh is soft and compressible, dressings are clean dry and intact. 2+ DP pulses palpated but patient does not follow commands so strength testing was deferred. Bilateral feet are warm. Constitutional Vital Signs, click to edit/add: Last Vital Signs Temp 98.2 F 04/15/24 03:37 Pulse 106 H 04/15/24 06:00 Resp 20 04/15/24 03:37 BP 146/83 H 04/15/24 03:37 Pulse Ox 94 L 04/15/24 06:00 O2 Del Method Room Air 04/15/24 03:37 Urinary Catheter Management Urinary Catheter Management Urethral: Cath placed during this visit: no
--- NOTE | 2024-04-15 07:28 | P.PN_ITS ---
Progress Note: Subjective Subjective Interval history: Patient very anxious this morning. Does not answer questions appropriately. Exam Constitutional Vital Signs, click to edit/add: Last Vital Signs Temp 98.2 F 04/15/24 03:37 Pulse 106 H 04/15/24 06:00 Resp 20 04/15/24 03:37 BP 146/83 H 04/15/24 03:37 Pulse Ox 94 L 04/15/24 06:00 O2 Del Method Room Air 04/15/24 03:37 Documenting provider has reviewed patient's vital signs: yes Common normals: apparent distress (Very anxious, painful distress as well) Chest Common normals: inspection of chest normal Respiratory Common normals: normal respiratory effort (Shallow respirations from anxiety) and clear to auscultation bilaterally Cardio Common normals: regular rhythm Rate: tachycardic GI Common normals: Normal to inspection, nondistended, normoactive bowel sounds present, soft to palpation and non-tender Extremity Common normals: no clubbing, cyanosis or edema Progress Note: Objective Labs Labs: Short CBC 04/14/24 04/14/24 04/15/24 Range/Units 10:23 14:09 04:20 WBC 15.7 H 15.0 H 18.3 H (4.0-11.0) 10^3/uL Hgb 11.5 L 11.5 L 9.5 L (12.0-16.0) g/dL Hct 34.5 L 34.3 L 28.6 L (36.0-48.0) % Plt Count 447 464 H 352 (150-450) 10^3/uL BMP 04/14/24 04/14/24 04/15/24 10:23 14:09 00:40 Sodium 122 L* 125 L 128 L Potassium 5.2 H 5.1 4.6 Chloride 90 L 91 L 96 L Carbon Dioxide 27.4 29.6 27.6 BUN 36.0 H 37.0 H 35.0 H Creatinine 1.35 H 1.32 H 1.15 H Glucose 122 H 99 101 Calcium 9.2 9.1 8.3 L 04/15/24 04:20 Sodium 128 L Potassium 4.9 Chloride 97 L Carbon Dioxide 26.3 BUN 33.0 H Creatinine 1.11 H Glucose 97 Calcium 8.1 L Liver Function 04/14/24 Range/Units 14:09 Total Bilirubin 0.5 (0.2-1.0) mg/dL AST 35 (15-37) U/L ALT 27 (14-59) U/L Alkaline Phosphatase 159 H (46-116) U/L Albumin 3.0 L (3.4-5.0) g/dL Urine 04/15/24 Range/Units 04:10 Urine Color Lt. yellow (YELLOW) Urine Clarity Clear (CLEAR) Urine pH 6.5 (5.0-9.0) Ur Specific [place] 1.010 (1.005-1.025) Urine Protein Negative (NEG/TRACE) mg/dL Urine Glucose (UA) Negative (NEGATIVE) mg/dL Progress Note: A&P Assessment and Plan (1) Hip fracture, right: (2) Ambulatory dysfunction: (3) Hypothyroid: Qualifiers: Hypothyroidism type: unspecified Qualified Code(s): E03.9 - Hypothyroidism, unspecified (4) Acute kidney injury: (5) Leukocytosis: (6) Anxiety: (7) Hypertension: Qualifiers: Hypertension type: primary hypertension Qualified Code(s): I10 - Essential (primary) hypertension (8) Osteopenia: (9) Type 2 diabetes mellitus: Plan Admission findings: Acute kidney injury with creatinine 150% above baseline (baseline creatinine of 0.9, admission creatinine 1.35 equals 150% above baseline). Leukocytosis, significant hyponatremia, hyperkalemia, elevated hemoglobin for her, normally she runs upper 8 to low nines, she is over 11 currently. Electrolyte lab abnormalities consistent with dehydration. Will repeat labs to confirm, if sodium is in the low will give 1 L fluid bolus and repeat Chem-8 post infusion Hyponatremia-improved somewhat today but persistently low. Hyperkalemia-resolved Acute blood loss anemia secondary to right hip fracture and repair-monitor blood count daily EKG without acute changes-she shows right bundle branch block and there is no significant change from EKG done last May History of acute combined congestive heart failure on top of chronic congestive heart failure-outlined as above, will need to receive more fluids today. Watch for peripheral edema or change on lung exam Acute kidney injury with creatinine 150% above baseline on admission-still elevated today but improved Right femur fracture likely secondary to osteopenia-surgery completed on 04/14/2024-increased pain medications today. Leukocytosis with acute UTI-start patient on IV antibiotics, leukocytosis more elevated today than on admission Hypothyroidism-continue with home medications Osteopenia-continue with medications Hypertension by history-continue current dosing Chronic low back pain-medications as outlined in orders Moderate protein calorie malnutrition-diet management, add Ensure clear Generalized anxiety disorder-resulting in tachycardia -add oral alprazolam to start with. Hydroxyzine not effective Admission status: Patient with right femur fracture now displaced, acute kidney injury, medically necessary treatment will span 2 midnights. Inpatient status. Urinary Catheter Management Urinary Catheter Management Urethral: Cath placed during this visit: no
[2024-04-15] MEDS: ENSURE CLEAR 237 ML LIQUID PO ×2 (08:05→22:42)
[2024-04-15] MEDS: LISINOPRIL 10 MG TABLET PO (08:05)
[2024-04-15] MEDS: HYDROMORPHONE HCL 1 MG/ML CARTRIDGE IV ×2 (08:05→22:42)
[2024-04-15] MEDS: CETIRIZINE HCL 10 MG TABLET PO (08:05)
[2024-04-15] MEDS: 0.9 % SODIUM CHLORIDE 1,000 ML 500 ML IV (08:06)
[2024-04-15] MEDS: CALCIUM CARBONATE 600 MG TABLET PO ×2 (10:21→22:42)
[2024-04-15] MEDS: LEVOFLOXACIN IN DEXTROSE 5 % 750 MG/150 ML PREMIX 100 MG IV (10:21)
[2024-04-15] MEDS: CYCLOBENZAPRINE HCL 10 MG TABLET PO ×3 (10:21→22:42)
--- NOTE | 2024-04-15 11:11 | RESP.RT ---
Pt is unable to do at this time
[2024-04-15] MEDS: CEFTRIAXONE 1,000 MG in 0.9 % SODIUM CHLORIDE 50 ML 100 MG IV (11:59)
--- NOTE | 2024-04-15 12:44 | SWNOTE1 ---
Important Message from [employer] reviewed and discussed with patient's daughter yesterday. Pt's daughter verbalized understanding and signed the form. Original given to patient's daughter and copy placed in patient?s chart.
--- NOTE | 2024-04-15 13:50 | SWNOTE1 ---
No discharge today for pt. JONAH sent updates to [facility]. Updates included physician notes, PT note, labs, vitals, and nursing notes.
[2024-04-15] MEDS: TRAMADOL HCL 50 MG TABLET PO (13:57)
[2024-04-15] MEDS: ACETAMINOPHEN 500 MG TABLET 1000 MG PO (13:57)
[2024-04-15] MEDS: ALPRAZOLAM 0.5 MG TABLET PO (15:38)
--- NOTE | 2024-04-15 19:45 | RESP.RT ---
Pt unable to do PEP at this time.
--- NOTE | 2024-04-15 19:45 | RESP.RT ---
Pt unable to do PEP at this time.
[2024-04-16] VITALS (21 sets, daily range): BP systolic 122–155; BP diastolic 62–87; PULSE 63–114; TEMP 36.3–36.9; O2SAT 92–98
[2024-04-16] MEDS: 0.9 % SODIUM CHLORIDE 1,000 ML 100 ML IV ×2 (00:01→09:56)
[2024-04-16 04:28] LABS: Basophils Percent Auto 0.2 % (0.2-2.0); Eosinophils Absolute Auto 0.1 10^3/uL (0.0-0.7); Hematocrit 25.1 % (36.0-48.0); Hemoglobin 8.3 g/dL (12.0-16.0); Immature Granulocytes Abs Auto 0.04 10^3/uL (0.00-0.03); Immature Granulocytes Pct Auto 0.4 % (0.0-0.5); Lymphocytes Absolute Auto 1.7 10^3/uL (1.2-3.8); Lymphocytes Percent Auto 18.6 % (20.5-60.0); Mean Corpuscular HGB Conc 33.1 g/dL (29.9-35.2); Mean Corpuscular Hemoglobin 29.6 pg (26.7-34.0); Mean Corpuscular Volume 89.6 fL (81.0-99.0); Mean Platelet Volume 8.2 fL (9.5-13.5); Monocytes Absolute Auto 0.8 10^3/uL (0.3-0.8); Monocytes Percent Auto 8.6 % (1.7-12.0); Neutrophils Absolute Auto 6.6 10^3/uL (1.4-6.5); Neutrophils Percent Auto 71.2 % (43.0-75.0); Platelet Count 217 10^3/uL (150-450); Red Cell Distribution Width 13.2 % (11.0-15.0); White Blood Count 9.3 10^3/uL (4.0-11.0)
[2024-04-16 04:45] LABS: Anion Gap 8.2; BUN Creatinine Ratio 20.4; Calcium 7.7 mg/dL (8.5-10.1); Carbon Dioxide 24.9 mmol/L (21.0-32.0); Chloride 102 mmol/L (98-107); Estimated GFR (African America >60 (>=60 mL/min/1.73m^2); Estimated GFR (Non-African Ame 58 (>=60 mL/min/1.73m^2); Glucose 90 mg/dL (74-106); Potassium 4.1 mmol/L (3.5-5.1); Sodium 131 mmol/L (136-145)
[2024-04-16] MEDS: LEVOTHYROXINE SODIUM 112 MCG TABLET PO (05:51)
[2024-04-16] MEDS: CYCLOBENZAPRINE HCL 10 MG TABLET PO (05:51)
--- NOTE | 2024-04-16 07:31 | XR_ITS ---
The [address] [address] Patient Name: JERRY FINNEY MRN: [id number] date: 1945 Sex: F Assigned Patient Location: [place] Current Patient Location: [place] Accession/Order Number: [id number] Exam Date: 04/16/2024 08:30 Report Date: 04/16/2024 09:04 At the request of: MARISEL LEGER Procedure: XR acute abdomen series EXAMINATION: XR acute abdomen series HISTORY: abd pain COMPARISON: 03/26/2024 FINDINGS: LUNGS: No infiltrate, pneumothorax, or pleural effusion. MEDIASTINUM: No abnormal widening. Aortic atherosclerosis BOWEL GAS PATTERN: Non-obstructed.r moderate stool in the rectum which measures 6.9 cm transversely FREE AIR: None. CALCIFICATIONS: None significant. BONES: Right femoral neck fracture with internal fixation. Moderate to severe degenerative change. Cervical fusion hardware. OTHER: Negative. XR/XR acute abdomen series IMPRESSION: Clear lungs Moderate stool in the rectum Electronically authenticated by: LONNY CHADWICK Date: 04/16/2024 09:04
--- NOTE | 2024-04-16 07:35 | P.PN_ITS ---
Progress Note: Subjective Subjective Interval history: Patient very anxious this morning. Does not answer questions appropriately. Exam Constitutional Vital Signs, click to edit/add: Last Vital Signs Temp 97.4 F L 04/16/24 04:22 Pulse 97 H 04/16/24 05:58 Resp 18 04/16/24 04:22 BP 122/68 04/16/24 04:22 Pulse Ox 97 04/16/24 04:22 O2 Del Method Room Air 04/16/24 00:06 Progress Note: Objective Labs Labs: Short CBC 04/16/24 Range/Units 04:20 WBC 9.3 (4.0-11.0) 10^3/uL Hgb 8.3 L (12.0-16.0) g/dL Hct 25.1 L (36.0-48.0) % Plt Count 217 (150-450) 10^3/uL BMP 04/16/24 04:20 Sodium 131 L Potassium 4.1 Chloride 102 Carbon Dioxide 24.9 BUN 19.0 H Creatinine 0.93 Glucose 90 Calcium 7.7 L Progress Note: A&P Assessment and Plan (1) Hip fracture, right: (2) Ambulatory dysfunction: (3) Hypothyroid: Qualifiers: Hypothyroidism type: unspecified Qualified Code(s): E03.9 - Hypothyroidism, unspecified (4) Acute kidney injury: (5) Leukocytosis: (6) Anxiety: (7) Hypertension: Qualifiers: Hypertension type: primary hypertension Qualified Code(s): I10 - Essential (primary) hypertension (8) Osteopenia: (9) Type 2 diabetes mellitus: Plan Admission findings: Acute kidney injury with creatinine 150% above baseline (baseline creatinine of 0.9, admission creatinine 1.35 equals 150% above baseline). Leukocytosis, significant hyponatremia, hyperkalemia, elevated hemoglobin for her, normally she runs upper 8 to low nines, she is over 11 currently. Electrolyte lab abnormalities consistent with dehydration. Will repeat labs to confirm, if sodium is in the low will give 1 L fluid bolus and repeat Chem-8 post infusion Hyponatremia-improved somewhat today but persistently low. Hyperkalemia-resolved Acute blood loss anemia secondary to right hip fracture and repair-monitor blood count daily EKG without acute changes-she shows right bundle branch block and there is no significant change from EKG done last May History of acute combined congestive heart failure on top of chronic congestive heart failure-outlined as above, will need to receive more fluids today. Watch for peripheral edema or change on lung exam Acute kidney injury with creatinine 150% above baseline on admission-still elevated today but improved Right femur fracture likely secondary to osteopenia-surgery completed on 04/14/2024-increased pain medications today. Leukocytosis with acute UTI-start patient on IV antibiotics, leukocytosis more elevated today than on admission Hypothyroidism-continue with home medications Osteopenia-continue with medications Hypertension by history-continue current dosing Chronic low back pain-medications as outlined in orders Moderate protein calorie malnutrition-diet management, add Ensure clear Generalized anxiety disorder-resulting in tachycardia -add oral alprazolam to start with. Hydroxyzine not effective Admission status: Patient with right femur fracture now displaced, acute kidney injury, medically necessary treatment will span 2 midnights. Inpatient status. Urinary Catheter Management Urinary Catheter Management Urethral: Cath placed during this visit: no
--- NOTE | 2024-04-16 07:36 | P.DS_ITS ---
DS: Providers Provider Date of admission: 04/14/24 12:20 Primary care physician: Pio Gibbs MD Consults: 04/14/24 13:43 Occupational Therapy Eval and Treat Routine Reason for consultation: Only if needed for Rehab Has provider been notified: No Physical Therapy Eval and Treat Routine Reason for consultation: Eval and Treat Has provider been notified: No DS: Diagnosis Discharge Diagnosis (1) Hip fracture, right: (2) Ambulatory dysfunction: (3) Hypothyroid: Qualifiers: Hypothyroidism type: unspecified Qualified Code(s): E03.9 - Hypothyroidism, unspecified (4) Acute kidney injury: (5) Leukocytosis: (6) Anxiety: (7) Hypertension: Qualifiers: Hypertension type: primary hypertension Qualified Code(s): I10 - Essential (primary) hypertension (8) Osteopenia: (9) Type 2 diabetes mellitus: Plan Admission findings: Acute kidney injury with creatinine 150% above baseline (baseline creatinine of 0.9, admission creatinine 1.35 equals 150% above baseline). Leukocytosis, significant hyponatremia, hyperkalemia, elevated hemoglobin for her, normally she runs upper 8 to low nines, she is over 11 currently. Electrolyte lab abnormalities consistent with dehydration. Will repeat labs to confirm, if sodium is in the low will give 1 L fluid bolus and re peat Chem-8 post infusion Hyponatremia-improving at the time of discharge Hyperkalemia-resolved Acute blood loss anemia secondary to right hip fracture and repair-stable at the time of discharge EKG without acute changes-she shows right bundle branch block and there is no significant change from EKG done last May History of acute combined congestive heart failure on top of chronic congestive heart failure-stable at the time of discharge Acute kidney injury with creatinine 150% above baseline on admission-slowly improving Right femur fracture likely secondary to osteopenia-surgery completed on 04/14/2024-increased pain medications today. Leukocytosis with acute UTI-start patient on IV antibiotics, resolved at the time of discharge Hypothyroidism-continue with home medications Osteopenia-continue with medications Hypertension by history-continue current dosing Chronic low back pain-on top of acute T11 burst fracture with spinal canal [id number] transferred to tertiary care center for stabilization with lower extremity paralysis. Does have some sensation intact Moderate protein calorie malnutrition-diet management, add Ensure clear Generalized anxiety disorder-resulting in tachycardia -add oral alprazolam to start with. Hydroxyzine not effective Admission status: Patient with right femur fracture now displaced, acute kidney injury, medically necessary treatment will span 2 midnights. Inpatient status. DS: Summary Hospital Course Hospital Course: Patient was seen in this facility about 3 weeks ago. X-rays at that time showed a new compression fracture but not an acute compression fracture spine, hip x- ray was negative. Patient was sent to rehab. At rehab approximately 5 days prior to being admitted family noted she was having some pain with motion of her hip. Not wanting to move her leg. [facility] done at the [facility] showed acute nondisplaced right femoral head fracture. Case was discussed with Ortho, since it was not displaced, uncertain of the timing of it it was elected to check a CT scan and have evaluated by orthopedics in 3 days. Patient came in for CT scan, CT scan confirms a displaced fracture. Seen by Ortho and referred to ER. Admitted through the ER, only finding there was some significant hyponatremia. She did have her surgery later in the day of admission. For her hip fracture repair. Yesterday was mostly pain control patient has been somewhat confused secondary to pain medications. Muscle relaxers. This morning when I saw patient, still somewhat confused. She is moving her upper extremities, moving her lower extremities at least withdrew to pain On assessing for edema. I received a message later in the morning, physical therapy noted she was flaccid in her lower extremities. CT scan of the head was negative, CT scan of the LS spine showed T11 burst fracture with severe spinal canal stenosis with 8 mm of displacement. Case was discussed with family in the for location for transfer. Discussed the case with [facility], trauma surgeon agreed to accept patient in transfer. Transfer arrangements are currently undergoing. When I just left the floor, she still did have sensation intact on palpation of lower extremity she could tell when I was squeezing her lower extremities. I thought she had some movement although not significant movement in her lower extremities. She is more awake and alert now, all sedation medications were withheld today. Medications see list. Patient will obviously need rehab after discharge. I will follow-up with patient after rehab. Time Spent with Patient Time attestation: Total time spent providing and/or coordinating discharge services: Exam Constitutional Vital Signs, click to edit/add: Last Vital Signs Temp 97.4 F L 04/16/24 04:22 Pulse 97 H 04/16/24 05:58 Resp 18 04/16/24 04:22 BP 122/68 04/16/24 04:22 Pulse Ox 97 04/16/24 04:22 O2 Del Method Room Air 04/16/24 00:06 Documenting provider has reviewed patient's vital signs: yes Common normals: apparent distress (Very anxious, painful distress as well) Chest Common normals: inspection of chest normal Respiratory Common normals: normal respiratory effort (Shallow respirations from anxiety) and clear to auscultation bilaterally Cardio Common normals: regular rhythm Rate: tachycardic GI Common normals: Normal to inspection, nondistended, normoactive bowel sounds present, soft to palpation and non-tender Extremity Common normals: no clubbing, cyanosis or edema Neuro Common normals: oriented x3 Sensorium/orientation: awake and alert Other: Minimal movement of lower extremities. Sensation intact. DS: Data Data Completed and Pending Labs on day of discharge: Labs from last 24 hours 04/16/24 04:20 WBC 9.3 RBC 2.80 L Hgb 8.3 L Hct 25.1 L MCV 89.6 MCH 29.6 MCHC 33.1 RDW 13.2 Plt Count 217 MPV 8.2 L Neut % (Auto) 71.2 Lymph % (Auto) 18.6 L [place] % (Auto) 8.6 Eos % (Auto) 1.0 Baso % (Auto) 0.2 Neut # (Auto) 6.6 H Lymph # (Auto) 1.7 [place] # (Auto) 0.8 Eos # (Auto) 0.1 Baso # (Auto) 0.0 Abs Immat Gran (auto) 0.04 H Imm/Tot Granulo (auto) 0.4 Sodium 131 L Potassium 4.1 Chloride 102 Carbon Dioxide 24.9 Anion Gap 8.2 BUN 19.0 H Creatinine 0.93 Est GFR ( Amer) >60 Est GFR (Non-Af Amer) 58 L BUN/Creatinine Ratio 20.4 Glucose 90 Calcium 7.7 L Discharge Plan Discharge Disposition: Xfer Acute Care Hospital Condition: Fair
[2024-04-16] MEDS: CETIRIZINE HCL 10 MG TABLET PO (09:50)
[2024-04-16] MEDS: ENSURE CLEAR 237 ML LIQUID PO (09:50)
[2024-04-16] MEDS: CEFTRIAXONE 1,000 MG in 0.9 % SODIUM CHLORIDE 50 ML 100 MG IV (09:50)
[2024-04-16] MEDS: ACETAMINOPHEN 500 MG TABLET 1000 MG PO (09:51)
[2024-04-16] MEDS: TRAMADOL HCL 50 MG TABLET PO (09:51)
[2024-04-16] MEDS: LISINOPRIL 10 MG TABLET PO (09:55)
--- NOTE | 2024-04-16 10:28 | SWNOTE1 ---
JONAH called over to Ortho office to see if medical scientist is coming to see pt today or if pt can be discharged. JONAH had to leave message, waiting for call back.
--- NOTE | 2024-04-16 10:38 | REH.PTDLY ---
Physical Therapy Daily Note PT Daily Note/Assess Start: 04/16/24 10:28 Freq: Status: Active Protocol: Document 04/16/24 10:29 MOHSEN (Rec: 04/16/24 10:38 MOHSEN [id number]) Physical Therapy Daily Note/Assessment Time In 09:10 Time Out 09:33 Subjective Pt complains of pain in R hip and back, but unable to rate. Pt apprehensive and hard to understand at times. Therapeutic Activity Minutes (minutes) 15 Therapeutic Activity Units 1 Therapeutic Activity Comments Cues to pt to move ankles and legs in supine, but pt unable to. States 'I think I am moving them' when pt is indeed not making any movement at all. Max A x2 with bed mobility and all transfers. Cues for seated balance, but pt unable to sit upright on her own without Max support from leaning retro. Cues in seated position for pt to move Rony LEs, but pt again does not move at all. Pt states 'I' m telling you I am paralyzed'. Max A x2 to return to bed and reposition. Total Therapy Minutes 15 Total Physical Therapy Units 1 Daily Note Summary Pt requires Max A x2 with all transfers. Pt does not move legs all throughout rx, very flaccid. Able to lift arms in the air minimally. Complains of back pain when sitting up with pt being unable to hold seated balance. Pt will need skilled care upon DC as she it a total assist with all transfers at this time.
--- NOTE | 2024-04-16 12:09 | SWNOTE1 ---
SW called ortho again, spoke with pressing machine operator and was transferred to [facility]. [facility]. SW updated nursing.
--- NOTE | 2024-04-16 12:37 | SWNOTE1 ---
Physical therapy is reporting pt's legs are flaccid. SW let Dr. Gibbs know and nursing.
--- NOTE | 2024-04-16 12:48 | CT_ITS ---
The [address] [address] Patient Name: JERRY FINNEY MRN: [id number] date: 1945 Sex: F Assigned Patient Location: [place] Current Patient Location: [place] Accession/Order Number: [id number] Exam Date: 04/16/2024 13:01 Report Date: 04/16/2024 15:20 At the request of: MARISEL LEGER Procedure: CT head/brain wo con EXAMINATION: CT head/brain wo con HISTORY: Flacid legs COMPARISON: None. TECHNIQUE: CT head without intravenous contrast. Dose reduction techniques were achieved by using: automated exposure control and/or adjustment of mA and /or kV according to patient size and/or use of iterative reconstruction technique. FINDINGS: Significant degradation of image quality from motion artifact. The ventricles and sulci are within normal limits in size and configuration for age. There is no evidence for acute intracranial hemorrhage. There are no foci of abnormal parenchymal attenuation. There is no mass effect or midline shift. There are no abnormal extraaxial fluid collections. CT/CT head/brain wo con IMPRESSION: There is degradation of image quality from motion artifact. Within the constraints of exam, there is no evidence for acute intracranial hemorrhage or acute intracranial process. Electronically authenticated by: DENEEN GODFREY Date: 04/16/2024 15:20
--- NOTE | 2024-04-16 12:48 | CT_ITS ---
The [address] [address] Patient Name: JERRY FINNEY MRN: [id number] date: 1945 Sex: F Assigned Patient Location: MS Current Patient Location: [place] Accession/Order Number: [id number] Exam Date: 04/16/2024 13:01 Report Date: 04/16/2024 14:32 At the request of: MARISEL LEGER Procedure: CT lumbar spine wo con CT lumbar spine wo con: 04/16/2024 1:01 PM EDT HISTORY: The patient reportedly had a fall on 03/25/2024 and had recent open reduction internal fixation of a fracture of the proximal right hip on 04/14/2024. The patient has developed flaccid legs. COMPARISON: CT scan abdomen and pelvis 06/06/2023 TECHNIQUE: Multiple contiguous axial CT images of the lumbar spine were obtained from the level of the inferior aspect of the T10 through the mid sacrum without contrast. Sagittal and coronal reformatted images were made. Dose reduction techniques were achieved by using automated exposure control and/or adjustment of mA and/or kV according to patient size and/or use of iterative reconstruction technique. FINDINGS: The bones are again seen to be osteoporotic. There is a large sliding hiatal hernia again partially visualized. Since the prior CT scan there has been development of small layering bilateral pleural effusions and probable adjacent bibasilar atelectasis. There are atherosclerotic calcifications again seen of the abdominal aorta and common iliac arteries without evidence of aneurysmal dilatation. There is a mild rotatory dextroconvex scoliosis again seen of the lumbar spine centered at the L3-L4 level. There is a stable appearance of a remote moderate compression deformity of the superior endplate of L2 and a chronic mild compression deformity of the superior endplate of L5 when compared to the prior CT scan. Since the prior CT scan there has been progressive loss of height of a severe compression fracture of the L3 vertebral body with loss of 80% of vertebral body height centrally. There has also been development of a moderate compression fracture of the L4 vertebral body with loss of 50% of vertebral body height centrally. These fracture margins appear sclerotic within the L3 and L4 vertebral bodies. There is multilevel discogenic disease again seen of the visualized lower thoracic spine and the lumbar spine. There are changes of DISH also again seen along the anterior aspect of the lower thoracic and upper lumbar spine. Since the prior CT scan there has been development of a comminuted burst fracture extending through the anterior and middle columns of the T11 vertebral body. There is also evidence of extension of fractures through the inferior articular processes of T11 bilaterally. There is loss of 40% of vertebral body height of T11. There is also retropulsion of T11 of 8 mm. This combines with severe facet joint arthropathy at this level to cause severe spinal canal stenosis with severe compression of the spinal cord. There is also severe bilateral foraminal narrowing at the T11-T12 level. There are acute nondisplaced fractures involving the medial aspect of the T11 ribs bilaterally adjacent to the costovertebral joint. There is an acute nondisplaced fracture of the lateral aspect of the right 12th rib. L1-L2 level: No significant disc protrusion, spinal canal stenosis, or foraminal narrowing is seen. There is severe facet joint arthropathy. L2-L3 level: There is a small posterior disc-osteophyte complex which appears to combine with severe facet joint arthropathy to cause probable mild spinal canal stenosis. L3-L4 level: There is a small posterior disc-osteophyte complex combining with severe facet joint arthropathy to cause probable severe right and moderate to severe left foraminal narrowing. No central spinal canal stenosis. L4-L5 level: No significant disc protrusion, spinal canal stenosis, or foraminal narrowing is seen. There is severe facet joint arthropathy. L5-S1 level: A small posterior disc-osteophyte complex in the right foraminal region combines with disc space narrowing and severe facet joint arthropathy to cause severe right foraminal narrowing. No left foraminal narrowing or central spinal canal stenosis. CT/CT lumbar spine wo con IMPRESSION: 1. Since a prior CT scan of the abdomen and pelvis of 06/06/2023 there has been development of an acute, comminuted burst fracture extending through all 3 columns of T11. Retropulsion of T11 of 8 mm combines with severe facet joint arthropathy at this level to cause severe spinal canal stenosis with severe compression of the spinal cord. There is also severe bilateral foraminal narrowing at the T11-T12 level. 2. Since the prior CT scan there has been progressive loss of height of a probable subacute/chronic severe compression fracture of the L2 vertebral body. There has also been development of a probable subacute moderate compression fracture of the L4 vertebral body. There is a stable appearance of chronic compression deformities of L2 and L5. 3. There are acute nondisplaced fractures of the medial aspect of the T11 ribs bilaterally and an acute nondisplaced fracture of the lateral aspect of the right 12th rib. 4. There are multilevel degenerative changes of the lower thoracic spine and lumbar spine. There are also changes of DISH again seen to involve the lower thoracic spine 5. There are small layering bilateral pleural effusions and probable adjacent bibasilar atelectasis. 6. Osteoporosis. I discussed the critical findings of the T11 burst fracture and severe spinal canal stenosis at the T11-T12 level with the referring clinician, Dr. Marisel Leger, at 2:30 PM on 04/16/2024 at the time of interpretation. Electronically authenticated by: MARISEL LESLIE Date: 04/16/2024 14:32
--- NOTE | 2024-04-16 13:35 | PC.NURSE ---
NIH assessment at this time caption writer was not able to obtain a true score as pt is unable to follow commands, and appears to not understand what is being asked of her. At this time caption writer documents only what pt was able to answer or perform.
--- NOTE | 2024-04-16 14:26 | PC.NURSE ---
Interior Horticulturist notified Dr. Gibbs of CT results provided by radiologist at this time, per Dr. Gibbs moving forward telestroke consult could be canceled as pts issue is spinal injury related. Dr. Gibbs then spoke with family and per the conversation will have pt transferred to [facility].
--- NOTE | 2024-04-16 15:13 | SWNOTE1 ---
Plan is now for pt to be transferred. JONAH let Americo know.
--- NOTE | 2024-04-16 15:32 | P.ORPN_ITS ---
Progress Note: A&P Assessment and Plan (1) Hip fracture, right: Assessment and Plan: POD day #2 right IM nail -WBAT - Hgb 8.3 this am, vitals stable, HR improved from yesterday - WBC 9.3 from 18 yesterday -DVT prophylaxis x 6 weeks -Pain control -Follow-up in [address] Luke for staple removal and postop recheck (2) Ambulatory dysfunction: (3) Hypothyroid: Qualifiers: Hypothyroidism type: unspecified Qualified Code(s): E03.9 - Hypothyroidism, unspecified (4) Acute kidney injury: (5) Leukocytosis: (6) Anxiety: (7) Hypertension: Qualifiers: Hypertension type: primary hypertension Qualified Code(s): I10 - Essential (primary) hypertension (8) Osteopenia: (9) Type 2 diabetes mellitus: Plan Patient being transferred to [facility] for a neurosurgery consultation secondary to her T11 burst fracture and severe spinal cord compression with neuro changes to BL lower extremities. CT Lumbar spine: - Development of an acute, comminuted burst fracture extending through all 3 columns of T11 8mm severe spinal cord compression - L2 VBF- progressive loss of height of a probable subacute/chronic severe compression fracture - L4 VBF-probable subacute moderate compression fracture - There is a stable appearance of chronic compression deformities of L2 and L5. - BL 11th/ R 12th Rib fx Subjective Subjective Interval history: Patient is POD #2 right hip IM nail. Family at bedside today. Patient still did not move her legs postoperatively and a CT head and CT lumbar spine was completed that showed a T11 burst fracture with severe spinal cord compression. Plan is to be transferred to [facility] for further neurosurgery consultation. Patient does not open eyes to voice or painful stimulation but does grimace with painful stimulation. Patient's family states that she has been using a wheelchair for quite some time but did stand on her feet to transfer. They are unsure if she was moving her feet prior to arriving at [facility] that morning as she was in so much pain from her hip. Exam Narrative Exam Narrative: On exam patient laying in the bed, does not open eyes to voice or painful stimulation, grimaces with painful stimulation, does not appear to be in distress, age-appropriate. Right hip dressing x 2 is clean/dry/intact. Thigh is soft and compressible. Sensation appears to be intact with painful stimulation above her bilateral shins as patient grimaces. 2+ DP pulses palpated bilaterally. Feet are warm. Sensation not intact with painful stimulation below lower legs to feet. Constitutional Vital Signs, click to edit/add: Last Vital Signs Temp 98.5 F 04/16/24 14:30 Pulse 75 04/16/24 14:30 Resp 18 04/16/24 14:30 BP 138/62 04/16/24 14:30 Pulse Ox 94 L 04/16/24 14:30 O2 Del Method Room Air 04/16/24 14:30 Urinary Catheter Management Urinary Catheter Management Urethral: Cath placed during this visit: no
--- NOTE | 2024-04-16 22:11 | RESP.RT ---
Attempted PEP again with patient. She only was able to do it once and then was trying but unable to do
[2024-04-17] VITALS: PULSE 80
[2024-04-17 00:24] VITALS: BP 154/70; PULSE 74; TEMP 36.7; O2SAT 97
== END 2024-04-17 01:00 | disposition short-term general hospital (02) | DRG 481 ==
LOC: ER 12:31 → MS 12:33
PROVIDERS: Anesthesiology; Student in an Organized Health Care Education/Training Program; Admitting Provider Family Medicine; Emergency Provider Emergency Medicine; PCP Family Medicine; Visit Provider Family Medicine
PROC: 0QS636Z Reposition Right Upper Femur with Intramedullary Internal Fixation Device, Percutaneous Approach (ICD-10-PCS; principal; 2024-04-14 16:30)
DX: M84.451A Pathological fracture, right femur, initial encounter for fracture (principal); D62 Acute posthemorrhagic anemia; E87.1 Hypo-osmolality and hyponatremia; N17.9 Acute kidney failure, unspecified; N39.0 Urinary tract infection, site not specified; G82.20 Paraplegia, unspecified; E44.0 Moderate protein-calorie malnutrition; M84.48XA Pathological fracture, other site, initial encounter for fracture; M48.061 Spinal stenosis, lumbar region without neurogenic claudication; E03.9 Hypothyroidism, unspecified; E11.9 Type 2 diabetes mellitus without complications; E86.0 Dehydration; E87.5 Hyperkalemia; F41.9 Anxiety disorder, unspecified; I45.10 Unspecified right bundle-branch block; I11.0 Hypertensive heart disease with heart failure; I50.9 Heart failure, unspecified; M85.80 Other specified disorders of bone density and structure, unspecified site; M54.50 Low back pain, unspecified; G89.29 Other chronic pain; Z68.23 Body mass index [BMI] 23.0-23.9, adult; Z79.890 Hormone replacement therapy; Z91.041 Radiographic dye allergy status; Z88.0 Allergy status to penicillin; Z88.1 Allergy status to other antibiotic agents; Z88.8 Allergy status to other drugs, medicaments and biological substances
CPT/HCPCS: 36415; 36592; 70450; 71045; 72131; 73502; 73552; 73700; 74022; 76000; 80048; 80053; 81001; 83605; 83880; 84484; 85025; 87040; 87086; 93005; 94667; 94668; 94761; 96374; 97163; 97165; 97530; 99285; C1713; C1776; G0328; J0665; J0696; J0736; J1170; J1171; J2270; J2371; J2405; J2704; J3010; Q0177